=== PATIENT | female | born 1965 | race Caucasian/White ===

== ENCOUNTER → 2017-11-14 09:13 | Outpatient (CLI) | payer OTHER, SELFPAY ==
[2017-11-14 11:27] LABS: BUN 24 mg/dL (7-18); CREATININE 0.78 mg/dL (0.55-1.02); Calcium 8.9 mg/dL (8.5-10.1); Chloride 101 mmol/L (98-107); Glucose 98 mg/dL (70-100); Potassium 4.9 mmol/L (3.5-5.1); Sodium 139 mmol/L (136-145); TSH 0.16 uIU/mL (0.358-3.74)
== END ==
PROVIDERS: PCP Family Medicine; Visit Provider Family Medicine
DX: Z00.00 Encounter for general adult medical examination without abnormal findings (principal); E03.9 Hypothyroidism, unspecified
CPT/HCPCS: 36415; 80048; 84443

== ENCOUNTER 2018-04-28 01:37 | Outpatient (CLI) | payer OTHER, SELFPAY ==
[2018-04-28 16:33] LABS: HCT 39.7 % (36.0-46.0); HGB 12.9 g/dL (12.0-15.5); Mean Corp. HGB Concentration 32.5 g/dL (32.0-36.0); Mean Corpuscular Hemoglobin 29.5 pg (27.0-33.0); Mean Corpuscular Volume 90.6 fL (80-95); Mean Platelet Volume 9.1 fL (8.0-11.0); Platelet Count 243 x1000/uL (130-400); RBC 4.38 m/cumm (4.00-5.20); RBC Distribution Width 14.1 % (11.7-14.6); White Blood Cell Count 8.16 k/cumm (4.4-10.8)
[2018-04-28 17:48] LABS: FREE T4 1.51 ng/dL (0.76-1.46)
[2018-04-29 18:11] LABS: Iron 28 ug/dL (50-175); Total Iron Binding Capacity 333 ug/dL (250-450); Transferrin Sat 8 % (15-50)
== END 2018-04-28 01:57 ==
PROVIDERS: PCP Family Medicine; Visit Provider Family Medicine
DX: E03.9 Hypothyroidism, unspecified (principal); R51 Headache; G47.00 Insomnia, unspecified; L67.9 Hair color and hair shaft abnormality, unspecified; E66.9 Obesity, unspecified
CPT/HCPCS: 36415; 85027; 83540; 83550; 84439; 84443

== ENCOUNTER 2019-03-12 16:26 | Outpatient (REF) | payer OTHER, SELFPAY ==
--- NOTE | 2019-03-12 15:10 | PAPFT_PTH ---
PATIENT: Liss Mosley LOC: [facility] U#:[id number] AGE/SX: 53/F ROOM: RE03/12/[address]: Carolyn Christianson, PhD RN ADVICE : 1965 BED: DIS: 03/12/2019 SPEC #: [id number] RECD: 03/12/19 18:23 STATUS: [place] REQ #: [id number] ADALBERTO: 03/12/19 15:[address]: Carolyn Christianson DEPT: [facility] Cytology RECD BY: Jackie Damon ENTERED: 03/12/19 18:23 SP TYPE: PAPFT OTHR DR: Alexandria Little APRN Tissues: 1 - CX/ENDOCX FOR PAP SMEARS Procedures: PAP THIN PREP/[facility] Screening HPV DNA PROBE Comments: [id number] (CHLAMYDIA/GC)
[2019-03-15 14:32] LABS: Chlamydia Result Negative (Negative); GC Result Negative (Negative)
== END 2019-03-12 16:46 ==
LOC: LBN 16:26
PROVIDERS: Visit Provider Nurse Practitioner
DX: Z12.4 Encounter for screening for malignant neoplasm of cervix (principal); Z11.3 Encounter for screening for infections with a predominantly sexual mode of transmission
CPT/HCPCS: 87491; 87591; 88142; 87624

== ENCOUNTER 2019-04-14 00:33 | Outpatient (CLI) | payer OTHER, SELFPAY ==
--- NOTE | 2019-04-14 15:57 | DI.MAMMO_ITS ---
EXAM: MG MAMMO SCREENING CLINICAL HISTORY: SCREENING, Z12.39. TECHNIQUE: Full field digital CC and MLO mammographic images were obtained with 3D tomosynthesis and utilizing computer aided detection (CAD). COMPARISON: 2010 to 2017 FINDINGS: Breast Density - Category A - Almost entirely fatty Masses/Architectural Distortion: None seen. Microcalcifications: No suspicious pleomorphic-type calcifications are seen. Skin Thickening/Nipple Retraction: None. Axilla: Unremarkable. IMPRESSION: 1. BI-RADS category 1, negative. No significant interval change with no specific features of maligna ncy noted. 2. Unless there is more urgent need, screening mammography is recommended, as per [employer] [employer] guidelines. Breast Density - Category A - Almost entirely fatty A negative radiographic report should not delay biopsy if a dominant or clinically suspicious mass is present. Up to ten percent of cancers are not identified on mammography. A negative report may reinforce clinical impression. Adenosis and dense breasts may obscure an underlying neoplasm. False positive reports average 6 to 10%. Patient will receive a letter notifying them of these results.
== END 2019-04-14 00:53 ==
PROVIDERS: Visit Provider Nurse Practitioner
DX: Z12.31 Encounter for screening mammogram for malignant neoplasm of breast (principal)
CPT/HCPCS: 77063; 77067

== ENCOUNTER 2019-07-10 08:57 | Outpatient (REF) | payer OTHER, SELFPAY ==
[2019-07-13 11:13] LABS: Campylobacter PCR Negative (Negative); Salmonella PCR Negative (Negative); Shiga Toxin PCR Negative (Negative); Shigella/Enteroinvasive Ecoli Negative (Negative)
== END 2019-07-10 09:17 ==
LOC: LBN 08:57
DX: K29.70 Gastritis, unspecified, without bleeding (principal)
CPT/HCPCS: 87505; 87177

== ENCOUNTER 2019-10-22 02:29 | Outpatient (CLI) | payer OTHER, SELFPAY ==
[2019-10-22 14:05] LABS: ALT 20 U/L (14-59); AST 13 U/L (15-37); Albumin 3.7 g/dL (3.4-5.0); Alkaline Phosphatase 68 U/L (46-116); Anion Gap 9.5 mmol/L (3-11); BUN 25 mg/dL (7-18); Bilirubin, Total 0.4 mg/dL (0.2-1.0); CO2 27.5 mmol/L (21.0-32.0); CREATININE 0.99 mg/dL (0.55-1.02); Calcium 8.6 mg/dL (8.5-10.1); Chloride 102 mmol/L (98-107); Estimated GFR 58.02 (mL/min/1.73m2); Glucose 104 mg/dL (74-106); Potassium 3.6 mmol/L (3.5-5.1); Sodium 139 mmol/L (136-145); Total Protein 7.5 g/dL (6.4-8.2)
== END 2019-10-22 02:49 ==
DX: E03.9 Hypothyroidism, unspecified (principal); E66.9 Obesity, unspecified; F32.9 Major depressive disorder, single episode, unspecified; L63.9 Alopecia areata, unspecified; N91.2 Amenorrhea, unspecified; Z00.00 Encounter for general adult medical examination without abnormal findings
CPT/HCPCS: 36415; 80053

== ENCOUNTER 2020-01-11 01:26 | Outpatient (CLI) | payer OTHER, SELFPAY ==
[2020-01-11 16:46] LABS: Hemoglobin A1C 5.6 % (<5.7)
[2020-01-11 17:34] LABS: Calculated LDL 143 mg/dL (<100); Cholesterol 229 mg/dL (<200); HDL Cholesterol 63 mg/dL (40-60); TSH (W/Ref FT4) 3.39 uIU/mL (0.36-3.74); Triglyceride 116 mg/dL (<150)
== END 2020-01-11 01:46 ==
PROVIDERS: Visit Provider Nurse Practitioner
DX: E03.9 Hypothyroidism, unspecified (principal); Z13.6 Encounter for screening for cardiovascular disorders; Z13.1 Encounter for screening for diabetes mellitus
CPT/HCPCS: 36415; 80061; 83036; 84443

== ENCOUNTER 2020-05-12 15:49 | Outpatient (REF) | payer OTHER, SELFPAY ==
--- NOTE | 2020-05-12 15:00 | PAPFT_PTH ---
PATIENT: Liss Mosley LOC: [facility] U#:[id number] AGE/SX: 54/F ROOM: RE05/12/[address]: Carolyn Christianson, PhD [employer] : 1965 BED: DIS: 05/12/2020 SPEC #: [id number] RECD: 05/15/20 13:01 STATUS: [place] REQ #: [id number] ADALBERTO: 05/12/20 15:[address]: Carolyn Christianson [facility] Cytology RECD BY: Jackie Damon Tissues: 1 - CX/ENDOCX FOR PAP SMEARS Procedures: PAP THIN PREP/UVM Screening HPV DNA PROBE Comments: [id number]
== END 2020-05-12 15:50 | disposition home or self-care (01) ==
LOC: LBN 15:49
PROVIDERS: PCP Nurse Practitioner; Visit Provider Nurse Practitioner
DX: Z12.4 Encounter for screening for malignant neoplasm of cervix (principal); Z11.51 Encounter for screening for human papillomavirus (HPV)
CPT/HCPCS: 88142; 87624

== ENCOUNTER 2020-05-15 09:37 | Outpatient (CLI) | payer OTHER, SELFPAY ==
[2020-05-16 11:51] LABS: COVID-19 RT-PCR UVMMC Result Negative (Negative)
== END 2020-05-15 09:38 | disposition home or self-care (01) ==
LOC: LBO 09:38
PROVIDERS: PCP Nurse Practitioner; Visit Provider Nurse Practitioner
DX: Z20.822 Contact with and (suspected) exposure to COVID-19 (principal)
CPT/HCPCS: U0003

== ENCOUNTER 2020-05-26 03:37 | Outpatient (CLI) | payer OTHER, SELFPAY ==
--- NOTE | 2020-05-26 06:45 | DI.MAMMO_ITS ---
EXAM: MAMMO SCREENING CLINICAL HISTORY: screening,Z12.39 TECHNIQUE: Mammograms were interpreted according to the usual protocol including computer analysis w [employer] CAD system, tomosynthesis and C-view imaging. COMPARISON: 2014 through 2019 FINDINGS: The breasts are composed of mainly fatty density , Breast Density category A. No suspicious masses or suspicious microcalcifications are seen. No skin thickening or abnormal axillary lymph nodes are seen. There has been no significant change from prior exams. IMPRESSION: BI-RADS Category 1, Negative mammogram Yearly screening mammography is recommended. Breast Density - Category A, fatty density. A negative radiographic report should not delay biopsy if a dominant or clinically suspicious mass is present. Up to ten percent of cancers are not identified on mammography. A negative report may reinforce clinical impression. Adenosis and dense breasts may obscure an underlying neoplasm. False positive reports average 6 to 10%. Patient will receive a letter notifying them of these results.
== END 2020-05-26 03:57 ==
PROVIDERS: PCP Nurse Practitioner; Visit Provider Nurse Practitioner
DX: Z12.31 Encounter for screening mammogram for malignant neoplasm of breast (principal)
CPT/HCPCS: 77063; 77067

== ENCOUNTER 2020-06-21 01:25 | Outpatient (CLI) | payer OTHER, SELFPAY ==
--- NOTE | 2020-06-21 13:49 | DI.US_ITS ---
APPROVED REPORT EXAM: Comprehensive 2D, Doppler, and color-flow Echocardiogram Patient Location: [facility] [employer] Teacher: Cely Mathur RDCS (AE) Indications: Heart murmur Other Information Study Quality: Adequate Conclusion Left Ventricle : The left ventricle is normal size. The left ventricular systolic function is normal. The left ventricular ejection fraction is within the normal range. There is normal left ventricular wall thickness. There is normal LV segmental wall motion. The left ventricular diastolic function is normal. LVEF is 60-65%. Right Ventricle : The right ventricle is normal size. The right ventricular systolic function is norm al. The RVSP is 35.2mmHg. Atria : The left atrium size is normal. The right atrium size is normal. Aortic Valve : The aortic valve is normal in structure. Aortic valve is trileaflet. Mild aortic regur gitation. There is no aortic valvular stenosis. Mitral Valve : The mitral valve is normal in structure. Mild mitral regurgitation. No evidence of lula ral valve stenosis. Great Vessels : The aortic root is normal in size. The ascending aorta is mildly dilated. Aortic arch is normal in caliber. IVC is normal in size and collapses >50% with inspiration. Wall motion Left Ventricle The left ventricle is normal size. The left ventricular systolic function is normal. The left ventric ular ejection fraction is within the normal range. There is normal left ventricular wall thickness. T here is normal LV segmental wall motion. The left ventricular diastolic function is normal. There is no ventricular septal defect visualized. LVEF is 60-65%. Right Ventricle The right ventricle is normal size. The right ventricular systolic function is normal. The RVSP is 35 .2mmHg. Atria The left atrium size is normal. The right atrium size is normal. The interatrial septum is intact wit h no evidence for an atrial septal defect. Aortic Valve The aortic valve is normal in structure. Aortic valve is trileaflet. There is no aortic valvular sten osis. Mild aortic regurgitation. Mitral Valve The mitral valve is normal in structure. No evidence of mitral valve stenosis. Mild mitral regurgitat ion. Tricuspid Valve The tricuspid valve is normal in structure. There is no tricuspid valve stenosis. Mild tricuspid regu rgitation. Pulmonic Valve The pulmonary valve is normal in structure. There is no pulmonic valvular stenosis. Trace pulmonic re gurgitation. Great Vessels The aortic root is normal in size. The ascending aorta is mildly dilated. Aortic arch is normal in ca liber. IVC is normal in size and collapses >50% with inspiration. Pericardium There is no pericardial effusion. 2D Dimensions IVSD d PLAX 0.98 cm F: 0.6-1.0 LV Vol A2C d MOD 112.0 mL LVPW d PLAX 0.91 cm F: 0.6 - 1.0 LV Vol A4C d MOD 114.1 mL LVID d PLAX 4.83 cm F: 3.8 - 5.2 LA vol/ BSA A2C s A-L 28.6 mL/m2 LVDs 3.25 cm F: 2.2 - 3.5 LA vol/ BSA A4C s A-L 33.2 mL/m2 Ao Root d 3.07 cm F: 2.7 - 3.3 LA Vol/ BSA Biplane s A-L 32.2 mL/m2 RA Area A4C 12.09 cm2 LA Area A4C s MOD 23.74 cm2 RA Vol/ BSA A4C s A-L 12.1 mL/m2 LA Area A2C s MOD 21.13 cm2 Ao Asc Diam d 3.59 cm F: 2.3 - 3.1 LV EF A4C MOD 59.3 % LV EF Teichholz 60.4 % LV EF A2C MOD 64.5 % LVEF (Dewitt's) 62.64 % F: 54 - 74 LV EF Biplane MOD 62.6 % LV Volume 81.66 mL F: 46 - 106 SV 71.64 mL LV Volume Index 35.04 mL/m2 F: 29 - 61 SV Index 30.66 mL/m2 LV Vol Biplane MOD 114.4 mL FS 32.25 % M-Mode TAPSE 2.68 cm (M/F) >1.7 LV Diastology MV E' medial 0.137 (>0.07 m/s) E/A Ratio 1.3 LV E/e MED 8.00 (<14) MV E Vmax 1.10 (0.4-1.3 m/s) MV E' lateral 0.111 (>0.1 m/s) MV A Vmax 0.85 (0.4-1.3 m/s) LV E/e LAT 9.80 (<14) MV E/A Ratio 1.22 MV E/E' medial 8.00 MV E/E' lateral 9.85 Aortic Valve LVOT Area 2.81 cm2 AoV Area Vmax 2.55 cm2 LVOT Vmax 1.44 m/s AoV Area/ BSA (Vmax) 1.09 cm2/m2 LVOT Mean Ronald. 0.94 m/s AJITH Mean Ronald. 2.21 cm2 LVOT Peak Grad 8.3 mmHg AJITH Mean Ronald. Index 0.95 cm2/m2 LVOT Mean Grad 4.2 mmHg AR DT 2438 msec LVOT VTI 0.351 m AR PHT 707 msec LVOT Diam s 1.85 cm AoV Vmax 1.58 m/s Velocity Ratio 0.91 AoV Mean Ronald. 1.20 m/s AoV Peak Grad 10.0 mmHg LVOT SV 98.70 mL AoV Mean Grad 6.1 mmHg AoV VTI 0.401 m AoV Area VTI 2.46 cm2 AoV Area/ BSA (VTI) 1.05 cm/m2 Mitral Valve MV DT 242 (160-240 msec) MR Vmax 5.40 m/s MV PHT 70 msec MR VTI 2.034 m MV Area PHT 3.13 cm2 MR Peak Grad 116.7 mmHg MV VTI 0.328 m MR Mean Grad 85.6 mmHg MV VTI Annulus 0.328 m MR PISA Radius 0.58 cm MV Area VTI 3.02 (4.0-6.0 cm2) MR EROA 0.14 cm2 MR Aliasing Velocity 0.35 m/s MR PISA 2.09 cm2 Pulmonary Valve PV Vmax 1.11 (0.5-1.5 m/s) RVOT Peak Gr. 3.38 mmHg PV Peak Grad 5.0 mmHg RVOT Mean Gr. 1.65 mmHg PV Mean Grad 2.8 mmHg RVOT VTI 0.239 m PV VTI 0.276 m RVOT Vmax 0.92 m/s Tricuspid Valve TR Peak Grad 32.1 mmHg TR Vmax 2.84 m/s RA Pressure 3.00 mmHg RVSP (TR) 35.2 mmHg
== END 2020-06-21 01:45 ==
PROVIDERS: PCP Nurse Practitioner; Visit Provider Nurse Practitioner
DX: R01.1 Cardiac murmur, unspecified (principal); I08.0 Rheumatic disorders of both mitral and aortic valves; I77.810 Thoracic aortic ectasia
CPT/HCPCS: 93306

== ENCOUNTER 2020-07-14 08:04 | Outpatient (CLI) | payer OTHER, SELFPAY ==
[2020-07-15 15:05] LABS: COVID-19 RT-PCR UVMMC Result Negative (Negative)
== END 2020-07-14 08:05 | disposition home or self-care (01) ==
PROVIDERS: PCP Nurse Practitioner; Visit Provider Nurse Practitioner
DX: Z20.822 Contact with and (suspected) exposure to COVID-19 (principal)
CPT/HCPCS: U0003

== ENCOUNTER 2020-09-08 04:03 | Outpatient (CLI) | payer OTHER, SELFPAY ==
[2020-09-08 11:19] LABS: ALT 23 U/L (14-59); AST 12 U/L (15-37); Albumin 3.6 g/dL (3.4-5.0); Alkaline Phosphatase 78 U/L (46-116); Anion Gap 7.1 mmol/L (3-11); BUN 16 mg/dL (7-18); Bilirubin, Total 0.3 mg/dL (0.2-1.0); CO2 29.9 mmol/L (21.0-32.0); CREATININE 0.8 mg/dL (0.55-1.02); Calcium 8.9 mg/dL (8.5-10.1); Chloride 105 mmol/L (98-107); FREE T4 0.86 ng/dL (0.76-1.46); Glucose 91 mg/dL (74-106); Potassium 4.4 mmol/L (3.5-5.1); Sodium 142 mmol/L (136-145); TSH 2.62 uIU/mL (0.36-3.74); Total Protein 7.2 g/dL (6.4-8.2)
[2020-09-08 18:31] LABS: Thyroperoxidase Antibody >1300 U/mL (<=60)
[2020-09-08 18:32] LABS: Thyroglobulin Antibody 35 U/mL (<=60)
[2020-09-13 14:44] LABS: Testosterone, Total 14 ng/dL (8-60)
[2020-09-14 14:51] LABS: Dehydroepiandrosterone (DHEA) 3.7 ng/mL (<6.0)
== END 2020-09-08 04:04 | disposition home or self-care (01) ==
LOC: LBO 04:03
PROVIDERS: PCP Nurse Practitioner; Visit Provider Internal Medicine Endocrinology, Diabetes & Metabolism
DX: L65.9 Nonscarring hair loss, unspecified (principal); Z68.42 Body mass index [BMI] 45.0-49.9, adult; E03.9 Hypothyroidism, unspecified
CPT/HCPCS: 36415; 80053; 84403; 82626; 84439; 84443; 86376; 86800

== ENCOUNTER 2020-12-20 00:34 | Outpatient (CLI) | payer OTHER, SELFPAY | END 2020-12-20 00:35 | disposition home or self-care (01) | PROVIDERS: PCP Nurse Practitioner; Visit Provider Internal Medicine Endocrinology, Diabetes & Metabolism | DX: Z68.42 Body mass index [BMI] 45.0-49.9, adult (principal); E66.01 Morbid (severe) obesity due to excess calories | CPT/HCPCS: 36415; 82533 ==

== ENCOUNTER 2021-04-20 01:48 | Outpatient (CLI) | payer OTHER, SELFPAY ==
[2021-04-20 07:34] LABS: Abs Immature Grans 0.03 10^3/uL (0.0-0.06); Absolute Basophil Count 0.03 10^3/uL (0.0-0.2); Absolute Eosinophil Count 0.21 10^3/uL (0.0-0.7); Absolute Lymphocyte Count 1.93 10^3/uL (1.2-3.4); Absolute Neutrophil Count 3.94 10^3/uL (1.2-6.7); Basophils % 0.5; Eosinophils % 3.2; HCT 44.7 % (36.0-46.0); HGB 13.8 g/dL (11.2-15.7); Immature Grans % 0.5; Lymphocytes % 29.1; MCHC 30.9 % (32.0-36.0); MCV 90.9 fL (80-95); MPV 9.2 fL (8.0-11.0); Monocytes % 7.5; Neutrophils % 59.2; Nucleated RBC 0 %; Platelet Count 242 10^3/uL (130-400); RBC 4.92 10^6/uL (3.93-5.22); RDW 14.2 % (11.7-14.6); RDW-SD 47.9 fL; WBC 6.64 10^3/uL (4.4-10.8)
[2021-04-20 07:44] LABS: Hemoglobin A1C 5.6 % (<5.7)
[2021-04-20 09:18] LABS: ALT 20 U/L (14-59); AST 11 U/L (15-37); Albumin 3.8 g/dL (3.4-5.0); Alkaline Phosphatase 61 U/L (46-116); Anion Gap 9.7 mmol/L (3-11); BUN 26 mg/dL (7-18); Bilirubin, Total 0.3 mg/dL (0.2-1.0); CO2 28.3 mmol/L (21.0-32.0); Calcium 8.6 mg/dL (8.5-10.1); Calculated LDL 164 mg/dL (<100); Chloride 102 mmol/L (98-107); Cholesterol 241 mg/dL (<200); Estimated GFR 57.15 (mL/min/1.73m2); Ferritin 109 ng/mL (8-252); Glucose 97 mg/dL (74-106); HDL Cholesterol 57 mg/dL (40-60); Potassium 4.2 mmol/L (3.5-5.1); Sodium 140 mmol/L (136-145); Total Protein 7.9 g/dL (6.4-8.2); Triglyceride 101 mg/dL (<150); Vitamin B12 584 pg/mL (193-986)
[2021-04-23 05:29] LABS: Vitamin D 25 Total 35.3 ng/mL (30-100)
[2021-04-26 11:07] LABS: Insulin 26.7 uIU/mL (<29.0)
== END 2021-04-20 01:49 | disposition home or self-care (01) ==
LOC: LBO 01:48
PROVIDERS: PCP Nurse Practitioner; Visit Provider Family Medicine
DX: E66.01 Morbid (severe) obesity due to excess calories (principal); Z68.43 Body mass index [BMI] 50.0-59.9, adult
CPT/HCPCS: 36415; 80053; 80061; 82306; 82607; 82728; 83036; 83525; 85025

== ENCOUNTER 2021-05-31 02:45 | Outpatient (CLI) | payer OTHER, SELFPAY ==
--- NOTE | 2021-05-31 08:30 | DI.MAMMO_ITS ---
Exam(s) MAMMO SCREENING EXAM: MAMMO SCREENING CLINICAL HISTORY: screening,z12.39 TECHNIQUE: Mammograms were interpreted according to the usual protocol including computer analysis w [employer] CAD system, tomosynthesis and C-view imaging. COMPARISON: 2014 through 2020 FINDINGS: The breasts are composed of mainly fatty density , Breast Density category A. No suspicious masses or suspicious microcalcifications are seen. No skin thickening or abnormal axillary lymph nodes are seen. There has been no significant change from prior exams. IMPRESSION: BI-RADS Category 1, Negative mammogram Yearly screening mammography is recommended. Breast Density - Category A, fatty density. A negative radiographic report should not delay biopsy if a dominant or clinically suspicious mass is present. Up to ten percent of cancers are not identified on mammography. A negative report may reinforce clinical impression. Adenosis and dense breasts may obscure an underlying neoplasm. False positive reports average 6 to 10%. Patient will receive a letter notifying them of these results.
== END 2021-05-31 03:05 ==
PROVIDERS: PCP Nurse Practitioner; Visit Provider Nurse Practitioner
DX: Z12.31 Encounter for screening mammogram for malignant neoplasm of breast (principal)
CPT/HCPCS: 77063; 77067

== ENCOUNTER 2021-06-12 17:32 | Outpatient (REF) | payer OTHER, SELFPAY ==
[2021-06-14 11:26] LABS: COVID-19 RT-PCR UVMMC Result Negative (Negative)
== END 2021-06-12 17:33 | disposition home or self-care (01) ==
LOC: LBN 17:32
PROVIDERS: PCP Nurse Practitioner; Visit Provider Family Medicine
DX: Z20.822 Contact with and (suspected) exposure to COVID-19 (principal); J34.89 Other specified disorders of nose and nasal sinuses
CPT/HCPCS: U0003

== ENCOUNTER 2021-06-27 01:46 | Outpatient (CLI) | payer OTHER, SELFPAY ==
--- NOTE | 2021-06-27 07:45 | DI.RAD_ITS ---
Exam(s) XR KNEE RT 3V AP,LAT,RENU EXAM: XR KNEE RT 3V AP,LAT,RENU CLINICAL HISTORY: pain M17.0 BILAT OSTEOARTHRITIS TECHNIQUE: COMPARISON: CR LEFT KNEE 3 VIEW COMPLETE from 05/26/2014 FINDINGS: Four views were obtained. There is severe loss of the cartilaginous joint space of the medial tibiof emoral joint with mild subchondral sclerosis of adjacent portions of femur and tibia and moderate dashawn us angulation. There are prominent medial marginal osteophytes. Marginal osteophytes are also seen anteriorly and posteriorly on the medial tibiofemoral joint and at the patellofemoral joint. IMPRESSION: Severe DJD predominantly involving medial tibiofemoral joint RADIATION DOSE DELIVERED: Total DLP
--- NOTE | 2021-06-27 07:45 | DI.RAD_ITS ---
Exam(s) XR KNEE LT 3V AP,LAT,RENU EXAM: XR KNEE LT 3V AP,LAT,RENU CLINICAL HISTORY: pain M17.0 BILAT OSTEOARTHRITIS TECHNIQUE: COMPARISON: CR XR KNEE RT 3V AP,LAT,RENU from 06/27/2021 FINDINGS: Three views were obtained. There is severe narrowing of the cartilaginous joint space of the medial tibiofemoral joint with mild adjacent subchondral sclerosis of femur and tibia. Moderate marginal os teophytes are seen involving all 3 joints of the knee. There is moderate varus angulation. IMPRESSION: DJD predominantly involving medial tibiofemoral joint. RADIATION DOSE DELIVERED: Total DLP
== END 2021-06-27 02:06 ==
LOC: DI 01:46
PROVIDERS: PCP Nurse Practitioner; Visit Provider Nurse Practitioner
DX: M17.0 Bilateral primary osteoarthritis of knee (principal)
CPT/HCPCS: 73562

== ENCOUNTER 2021-09-10 13:30 | Outpatient (CLI) | payer OTHER, SELFPAY ==
--- NOTE | 2021-09-10 13:45 | RT.EKG_ITS ---
APPROVED REPORT Exam: Resting ECG Reason for Exam: Pre-op examination Patient Location: O HR:55 bpm ECG Measurements Heart Rate 55 AXIS WI 172 P 17 QRSd 107 QRS -19 QT 420 T 22 QTc 404 Conclusion Sinus bradycardia...rate< 60
== END 2021-09-10 13:31 | disposition home or self-care (01) ==
PROVIDERS: PCP Nurse Practitioner; Visit Provider Family Medicine
DX: E03.9 Hypothyroidism, unspecified (principal); I10 Essential (primary) hypertension; Z01.818 Encounter for other preprocedural examination
CPT/HCPCS: 93010

== ENCOUNTER 2021-12-24 02:47 | Outpatient (CLI) | payer OTHER, SELFPAY ==
[2021-12-24 17:09] LABS: Hemoglobin A1C 5.4 % (<5.7)
[2021-12-24 17:36] LABS: BUN 32 mg/dL (7-18); CREATININE 0.8 mg/dL (0.55-1.02); Calcium 9.6 mg/dL (8.5-10.1); Chloride 104 mmol/L (98-107); Estimated GFR 85.35 (mL/min/1.73m2); Glucose 82 mg/dL (74-106); Potassium 4.4 mmol/L (3.5-5.1); Sodium 139 mmol/L (136-145); TSH (W/Ref FT4) 0.27 uIU/mL (0.36-3.74)
[2021-12-24 17:52] LABS: FREE T4 1.12 ng/dL (0.76-1.46)
== END 2021-12-24 02:48 | disposition home or self-care (01) ==
LOC: LBO 02:47
PROVIDERS: Family Medicine; PCP Nurse Practitioner; Visit Provider Family Medicine
DX: E03.9 Hypothyroidism, unspecified (principal); I10 Essential (primary) hypertension; Z13.1 Encounter for screening for diabetes mellitus
CPT/HCPCS: 36415; 80048; 83036; 84439; 84443

== ENCOUNTER → 2022-01-23 12:39 | Outpatient (CLI) | payer OTHER, SELFPAY ==
--- NOTE | 2022-01-23 11:15 | DI.RAD_ITS ---
Exam(s) XR LUMBAR SPINE COMPLETE EXAM: XR LUMBAR SPINE COMPLETE CLINICAL HISTORY: BACK PAIN. DORSALGIA-M54.9 TECHNIQUE: COMPARISON: No exams were available for comparison FINDINGS: Five views were obtained. There is loss of height of the intervertebral disc spaces at L4-5 and L5-S 1. There are mild hypertrophic degenerative changes involving the facet joints and endplates through out the lumbar region. There is no evidence of spondylolysis or spondylolisthesis. No compression f racture seen. IMPRESSION: DJD, no evidence of acute process. The RADIATION DOSE DELIVERED: Total DLP
== END ==
PROVIDERS: PCP Nurse Practitioner; Visit Provider Physician Assistant
DX: M47.816 Spondylosis without myelopathy or radiculopathy, lumbar region (principal)
CPT/HCPCS: 72110

== ENCOUNTER 2022-05-01 04:12 | Outpatient (CLI) | payer OTHER, SELFPAY ==
[2022-05-01 17:07] LABS: TSH (W/Ref FT4) 1.67 uIU/mL (0.36-3.74)
== END 2022-05-01 04:13 | disposition home or self-care (01) ==
LOC: LBO 04:13
PROVIDERS: PCP Nurse Practitioner Family; Visit Provider Nurse Practitioner Family
DX: E03.9 Hypothyroidism, unspecified (principal)
CPT/HCPCS: 36415; 84443

== ENCOUNTER 2022-07-19 02:14 | Outpatient (CLI) | payer OTHER, SELFPAY ==
[2022-07-19 12:24] LABS: HCT 39.5 % (36.0-46.0); HGB 12.3 g/dL (11.2-15.7); MCH 29.1 pg (27.0-33.0); MCHC 31.1 % (32.0-36.0); MCV 94 fL (80-95); MPV 9.6 fL (8.0-11.0); Platelet Count 286 10^3/uL (130-400); RBC 4.22 10^6/uL (3.93-5.22); RDW 14.3 % (11.7-14.6); RDW-SD 49.2 fL; WBC 7.97 10^3/uL (4.4-10.8)
[2022-07-19 13:30] LABS: ALT 25 U/L (14-59); AST 13 U/L (15-37); Albumin 3.8 g/dL (3.4-5.0); Alkaline Phosphatase 50 U/L (46-116); Anion Gap 10.4 mmol/L (3-11); BUN 27 mg/dL (7-18); Bilirubin, Total 0.2 mg/dL (0.2-1.0); CO2 26.6 mmol/L (21.0-32.0); CREATININE 1.1 mg/dL (0.55-1.02); Calcium 9.1 mg/dL (8.5-10.1); Calculated LDL 113 mg/dL (<100); Chloride 102 mmol/L (98-107); Cholesterol 193 mg/dL (<200); Estimated GFR 58.24 (mL/min/1.73m2); Glucose 91 mg/dL (74-106); HDL Cholesterol 54 mg/dL (40-60); Potassium 4.6 mmol/L (3.5-5.1); Sodium 139 mmol/L (136-145); Triglyceride 132 mg/dL (<150)
== END 2022-07-19 02:15 | disposition home or self-care (01) ==
PROVIDERS: PCP Nurse Practitioner Family; Visit Provider Nurse Practitioner Family
DX: E03.9 Hypothyroidism, unspecified (principal); E66.9 Obesity, unspecified; F32.9 Major depressive disorder, single episode, unspecified; G47.30 Sleep apnea, unspecified; I10 Essential (primary) hypertension; Z00.00 Encounter for general adult medical examination without abnormal findings
CPT/HCPCS: 36415; 80053; 80061; 85027

== ENCOUNTER 2022-08-06 01:20 | Outpatient (CLI) | payer OTHER, SELFPAY ==
--- NOTE | 2022-08-06 15:31 | DI.MAMMO_ITS ---
Exam(s) MAMMO SCREENING EXAM: MAMMO SCREENING CLINICAL HISTORY: screening,Z12.39. TECHNIQUE: Bilateral full field digital CC and MLO mammographic images were obtained with 3D tomosyn thesis and utilizing computer aided detection (CAD). COMPARISON: Prior mammograms were reviewed. FINDINGS: There has been no significant change in the appearance and distribution of the fibroglandular tissue which is again noted be predominately fatty.. There are no new spiculated masses nor malignant appearing microcalcification groups. Benign anteriorly in the left breast are again noted. A group of microcalcifications located mediall y in the right breast is unchanged from prior studies. There are no new malignant-appearing microcalcification groups appear There is no significant architectural distortion nor skin thickening-retraction. IMPRESSION: No radiographic evidence of malignancy. BI-RADS Category 1 - Negative Breast Density - Category A - Almost entirely fatty Breast density Category C or D implies that the patient has dense breast tissue. Dense breast tissue can make it harder to find cancer on a mammogram. Dense breast tissue is also associated with an incr eased risk of breast cancer. This information about the result of the mammogram report was provided to the patient to raise their awareness. Use this report when you speak with the patient about their risks for breast cancer, which includes their family history. At that time, you may recommend additional screening tests (Ultrasoun d or MRI) as these tests may add significant information. A negative radiographic report should not delay biopsy if a dominant or clinically suspicious mass is present. Up to ten percent of cancers are not identified on mammography. A negative report may reinforce clinical impression. Adenosis and dense breasts may obscure an underlying neoplasm. False positive reports average 6 to 10%. Patient will receive a letter notifying them of these results.
== END 2022-08-06 01:40 ==
LOC: DI 01:21
PROVIDERS: PCP Nurse Practitioner Family; Visit Provider Nurse Practitioner Family
DX: Z12.31 Encounter for screening mammogram for malignant neoplasm of breast (principal)
CPT/HCPCS: 77063; 77067

== ENCOUNTER 2022-12-02 19:46 | Emergency (ER) | payer OTHER, SELFPAY ==
[2022-12-02] VITALS (28 sets, daily range): BP systolic 104–131; BP diastolic 45–71; PULSE 55–66; RESP 12–23; TEMP 36.3; O2SAT 95–99
--- NOTE | 2022-12-02 19:45 | RT.EKG_ITS ---
APPROVED REPORT Exam: Resting ECG Reason for Exam: syncopal episode Patient Location: E HR:56 bpm ECG Measurements Heart Rate 56 AXIS KS 196 P 58 QRSd 108 QRS -23 QT 422 T 23 QTc 408 Conclusion Sinus bradycardia...rate< 60
--- NOTE | 2022-12-02 20:15 | DI.CT_ITS ---
Exam(s) CT HEAD WO EXAM: CT HEAD WO CLINICAL HISTORY: Syncope. TECHNIQUE: Imaging Protocol: Axial computed tomography images with coronal and sagittal reformatted images were created and reviewed COMPARISON: No exams were available for comparison FINDINGS: There are no skull fractures. There is no fluid in the visualized paranasal sinuses. There is no evidence of intracranial hemorrhage, mass effect, or shift of midline structures. There are no extra-axial fluid collections. The ventricles are not enlarged or shifted and there is no blo od within the ventricular system nor within the basal cisterns. IMPRESSION: No acute intracranial findings on this noninfused CT scan of the brain. RADIATION DOSE DELIVERED: 732.87mGy.cm Total DLP DATA REPOSITORY: All CT scans at this facility are submitted to the National Radiology Data Registry (NRDR) Dose Index Registry (DIR) with the [employer] ([employer]). RADIATION OPTIMIZATION: All CT scans at this facility use at least one of these dose optimization te chniques: automated exposure control; mA and/or kV adjustment per patient size (includes targeted exa ms where dose is matched to clinical indication); or iterative reconstruction.
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
[2022-12-02 20:34] LABS: Abs Immature Grans 0.04 10^3/uL (0.0-0.06); Absolute Basophil Count 0.04 10^3/uL (0.0-0.2); Absolute Eosinophil Count 0.13 10^3/uL (0.0-0.7); Absolute Lymphocyte Count 1.75 10^3/uL (1.2-3.4); Absolute Monocyte Count 0.52 10^3/uL (0.1-0.8); Absolute Neutrophil Count 6.47 10^3/uL (1.2-6.7); Basophils % 0.4; Eosinophils % 1.5; HCT 36.1 % (36.0-46.0); HGB 11.7 g/dL (11.2-15.7); Immature Grans % 0.4; Lymphocytes % 19.6; MCH 29.8 pg (27.0-33.0); MCHC 32.4 % (32.0-36.0); MCV 92 fL (80-95); MPV 10.1 fL (8.0-11.0); Monocytes % 5.8; Neutrophils % 72.3; Platelet Count 253 10^3/uL (130-400); RBC 3.93 10^6/uL (3.93-5.22); RDW-SD 47.4 fL; WBC 8.95 10^3/uL (4.4-10.8)
[2022-12-02] MEDS: Normal Saline 1,000 ML 1000 ML IV ×2 (20:56→22:30)
[2022-12-02 20:59] LABS: ALT 14 U/L (14-59); AST 13 U/L (15-37); Albumin 3.3 g/dL (3.4-5.0); Alkaline Phosphatase 57 U/L (46-116); Anion Gap 8.4 mmol/L (3-11); BUN 36 mg/dL (7-18); Bilirubin, Total 0.2 mg/dL (0.2-1.0); CO2 25.6 mmol/L (21.0-32.0); CREATININE 1.3 mg/dL (0.55-1.02); Calcium 9.2 mg/dL (8.5-10.1); Chloride 102 mmol/L (98-107); Estimated GFR 47.37 (mL/min/1.73m2); Glucose 133 mg/dL (74-106); Magnesium 2.2 mg/dL (1.8-2.4); Potassium 4.4 mmol/L (3.5-5.1); Sodium 136 mmol/L (136-145); TSH 0.14 uIU/mL (0.36-3.74); Total Protein 7.1 g/dL (6.4-8.2); Troponin I < 50 ng/L (<or=60)
[2022-12-02 21:02] LABS: ETHANOL BLOOD < 3.0 mg/dL (<10)
[2022-12-02 21:16] LABS: D-Dimer 355 ng/mlFEU (<500)
[2022-12-02 22:16] LABS: FREE T4 1.09 ng/dL (0.76-1.46)
--- NOTE | 2022-12-02 22:17 | DI.VRAD_ITS ---
PROCEDURE INFORMATION: Exam: CT Head Without Contrast Exam date and time: 12/02/2022 9:49 PM Age: 57 years old Clinical indication: Other: Syncope TECHNIQUE: Imaging protocol: Computed tomography of the head without contrast. Radiation optimization: All CT scans at this facility use at least one of these dose optimization techniques: automated exposure control; mA and/or kV adjustment per patient size (includes targeted exams where dose is matched to clinical indication); or iterative reconstruction. COMPARISON: US THYROID 09/21/2020 9:08 AM FINDINGS: Brain: There is no significant cerebral atrophy present. There is no significant white matter disease present. There is no evidence of intracranial hemorrhage. There is no evidence of acute intracranial injury or other pathologic process. There is no evidence of an acute ischemic event. No evidence of an acute intracranial abnormality. Cerebral ventricles: The ventricular system is normal in caliber and are seen in the midline. Paranasal sinuses: There is no evidence of fluid levels, mucoperiosteal thickening, or opacification to suggest acute or chronic sinusitis. Mastoid air cells: The mastoid aircells are normal. Orbital cavities: The orbits are normal without evidence of fracture. There is no evidence of retro-bulbar hemorrhage. There is no evidence of globe or lens injury. Bones/joints: The bony cranium shows no evidence of injury or other acute pathologic processes. Soft tissues: The extracranial soft tissues are normal. IMPRESSION: No evidence of an acute intracranial abnormality. Dictated and Authenticated by: Harrison Fregoso MD. Ordering:MISTI Sweeney MD
[2022-12-02 22:36] LABS: Bilirubin Negative (Negative); Blood Negative (Negative); Clarity Clear (Clear); Glucose Negative (Negative); Ketones Negative (Negative); Leukocyte Esterase Negative (Negative); Nitrite Negative (Negative); Specific Gravity 1.015 (1.005-1.025); Urobilinogen 0.2 mg/dL (Up to 0.2); pH 6.5 (5-8)
--- NOTE | 2022-12-02 23:10 | NUR.NOTE ---
Referral faxed to [facility]. Follow up this week for recheck kidney function. Nursing Note:
== END 2022-12-02 23:32 | disposition home or self-care (01) ==
PROVIDERS: Emergency Provider Nurse Practitioner Family; PCP Nurse Practitioner Family
DX: R55 Syncope and collapse (principal); R00.1 Bradycardia, unspecified; E86.0 Dehydration; N28.9 Disorder of kidney and ureter, unspecified; I95.1 Orthostatic hypotension; I10 Essential (primary) hypertension; E03.9 Hypothyroidism, unspecified; Z79.899 Other long term (current) drug therapy
CPT/HCPCS: 36415; 80053; 93005; 96360; 96361; 99284; 70450; 80320; 81003; 83735; 84439; 84443; 84484; 85025; 85379; 93010

== ENCOUNTER 2022-12-09 02:06 | Outpatient (CLI) | payer OTHER, SELFPAY ==
[2022-12-09 16:37] LABS: Anion Gap 10.3 mmol/L (3-11); BUN 26 mg/dL (7-18); CO2 24.7 mmol/L (21.0-32.0); CREATININE 1.1 mg/dL (0.55-1.02); Calcium 9.2 mg/dL (8.5-10.1); Chloride 98 mmol/L (98-107); Estimated GFR 57.88 (mL/min/1.73m2); Glucose 90 mg/dL (74-106); Potassium 4.2 mmol/L (3.5-5.1); Sodium 133 mmol/L (136-145)
== END 2022-12-09 02:07 | disposition home or self-care (01) ==
LOC: LBO 02:06
PROVIDERS: PCP Nurse Practitioner Family; Visit Provider Nurse Practitioner Family
DX: I10 Essential (primary) hypertension (principal); N28.9 Disorder of kidney and ureter, unspecified; E86.0 Dehydration; E66.8 Other obesity
CPT/HCPCS: 36415; 80048

== ENCOUNTER → 2023-06-06 12:42 | Outpatient (CLI) | payer OTHER, SELFPAY ==
--- NOTE | 2023-06-06 08:45 | DI.MAMMO_ITS ---
Exam(s) US BREAST LT LIMITED MAMMO DIAGNOSTIC BI EXAM: MAMMO DIAGNOSTIC BI and U/S breast LT limited CLINICAL HISTORY: tender breast lump, left, axiallary area,n63.20. TECHNIQUE: Craniocaudal and mediolateral oblique Full Field Digital Mammography views with Computer Aided Diagnosis followed by Tomosynthesis and left breast ultrasound. COMPARISON: Comparison is made with prior examinations. FINDINGS: Mammography/Tomosynthesis: Masses/Architectural Distortion: None seen. Microcalcifictions: No suspicious pleomorphic-type are seen. Skin Thickening/Nipple Retraction: None. Limited left breast US: Echotexture: Normal appearance of the glandular tissue. Shadowing: No suspicious foci. Cyst: None. Solid lesions: Benign-appearing lymph nodes are seen in the axilla. No cystic or solid lesions are s een in the area identified by the patient. Ductal dilation: None. IMPRESSION: 1. No evidence of malignancy is noted. 2. Unless there is more urgent need, follow-up screening mammography is recommended, as per [place] [employer] guidelines. 3. The findings were discussed with the patient on the date of the examination. BI-RADS Category 1 - Negative Breast Density - Category B - Scattered areas of fibroglandular density Breast density Category C or D implies that the patient has dense breast tissue. Dense breast tissue can make it harder to find cancer on a mammogram. Dense breast tissue is also associated with an incr eased risk of breast cancer. This information about the result of the mammogram report was provided to the patient to raise their awareness. Use this report when you speak with the patient about their risks for breast cancer, which includes their family history. At that time, you may recommend additional screening tests (Ultrasoun d or MRI) as these tests may add significant information. A negative radiographic report should not delay biopsy if a dominant or clinically suspicious mass is present. Up to ten percent of cancers are not identified on mammography. A negative report may reinforce clinical impression. Adenosis and dense breasts may obscure an underlying neoplasm. False positive reports average 6 to 10%. Patient will receive a letter notifying them of these results.
== END ==
PROVIDERS: PCP Nurse Practitioner Family; Visit Provider Nurse Practitioner Family
DX: R92.8 Other abnormal and inconclusive findings on diagnostic imaging of breast (principal); Z12.31 Encounter for screening mammogram for malignant neoplasm of breast
CPT/HCPCS: 76642; 77062; 77066; G0279

== ENCOUNTER 2023-08-14 05:16 | Outpatient (CLI) | payer OTHER, SELFPAY ==
[2023-08-14 18:15] LABS: Anion Gap 9.3 mmol/L (3-11); BUN 43 mg/dL (7-18); CO2 28.7 mmol/L (21.0-32.0); CREATININE 1.3 mg/dL (0.55-1.02); Calcium 9.3 mg/dL (8.5-10.1); Chloride 102 mmol/L (98-107); Estimated GFR 47.08 (mL/min/1.73m2); Glucose 87 mg/dL (74-106); Potassium 4.3 mmol/L (3.5-5.1); Sodium 140 mmol/L (136-145); TSH (W/Ref FT4) 1.98 uIU/mL (0.36-3.74)
== END 2023-08-14 05:17 | disposition home or self-care (01) ==
PROVIDERS: PCP Nurse Practitioner Family; Visit Provider Nurse Practitioner Family
DX: Z00.00 Encounter for general adult medical examination without abnormal findings (principal); E03.9 Hypothyroidism, unspecified; I10 Essential (primary) hypertension; F32.4 Major depressive disorder, single episode, in partial remission
CPT/HCPCS: 36415; 80048; 84443

== ENCOUNTER 2023-09-19 01:24 | Outpatient (CLI) | payer OTHER, SELFPAY ==
[2023-09-19 11:22] LABS: Calculated LDL 132 mg/dL (<100); Cholesterol 208 mg/dL (<200); HDL Cholesterol 63 mg/dL (40-60); Triglyceride 66 mg/dL (<150)
[2023-09-19 11:59] LABS: FREE T4 0.74 ng/dL (0.76-1.46)
[2023-09-19 18:14] LABS: T3, Total 82 ng/dL (97-169)
== END 2023-09-19 01:25 | disposition home or self-care (01) ==
LOC: LBO 01:24
PROVIDERS: PCP Nurse Practitioner Family; Visit Provider Nurse Practitioner Family
DX: E03.9 Hypothyroidism, unspecified (principal); I10 Essential (primary) hypertension; R79.89 Other specified abnormal findings of blood chemistry; E78.5 Hyperlipidemia, unspecified
CPT/HCPCS: 36415; 80061; 84439; 84480

== ENCOUNTER 2023-12-09 00:58 | Outpatient (CLI) | payer OTHER, SELFPAY ==
--- NOTE | 2023-12-09 | DI.CT_ITS ---
Exam(s) 3D RECON ON RAD CT WORKSTATION CT ABDOMEN PELVIS WO/W EXAM: CT ABDOMEN PELVIS WO/W CLINICAL HISTORY: F/U ABNL US, RT KIDNEY MASS,N28.89. TECHNIQUE: Imaging Protocol: Axial computed tomography images with coronal and sagittal reformatted images were created and reviewed. Images were performed from the lung bases through the ischial tuberosities before IV contrast and fol lowing IV contrast using a 70 second delay, followed by 7 minutes delayed images. 3D reconstructed images also performed during urographic phase.. CONTRAST MATERIAL: Intravenous: Omnipaque 350 Contrast volume:100 cc Oral: no COMPARISON: US US RENAL from 11/28/2023 CT 3D RECON ON RAD CT WORKSTATION from 12/09/2023 FINDINGS: Lung Bases: Normal where visualized. Liver: Normal density. No measurable mass. Gallbladder and biliary tract: No radiodense calculus or dilation. Pancreas: Normal density, no abnormal calcifications or inflammatory process. Spleen: Normal. Kidneys: Normal size, contour and axis. No radiodense stones or obstructive uropathy. Large enhancing right renal mass measuring 5.9 x 5.4 by 5.1 cm. No additional masses. No filling defects within the ureters. Adrenal glands: No masses seen. Lymph nodes: Within normal limits. Abdominal Aorta: Abdominal portion non-dilated. Soft tissues: Unremarkable. Bladder: No gross wall thickening. No evidence of a mass.No evidence of calculi. Bowel: Suture material at stomach. No obstruction or bowel wall thickening. Appendix normal. Peritoneal cavity: No ascites, collection or mesenteric inflammatory response. Soft tissues:. Unremarkable. Bones: Unremarkable for age.. Reproductive organs: Unremarkable for age.. IMPRESSION: 5.9 centimeter right renal mass suspicious for renal cell carcinoma. No additional masses. No evide nce of hydronephrosis. No evidence of metastatic disease. RADIATION DOSE DELIVERED: 2,115.31mGy.cm Total DLP DATA REPOSITORY: All CT scans at this facility are submitted to the National Radiology Data Registry (NRDR) Dose Index Registry (DIR) with the [employer] (ACR). RADIATION OPTIMIZATION: All CT scans at this facility use at least one of these dose optimization te chniques: automated exposure control; mA and/or kV adjustment per patient size (includes targeted exa ms where dose is matched to clinical indication); or iterative reconstruction.
[2023-12-09 15:12] LABS: Anion Gap 8.4 mmol/L (3-11); BUN 20 mg/dL (7-18); CO2 26.6 mmol/L (21.0-32.0); CREATININE 0.9 mg/dL (0.55-1.02); Calcium 9.2 mg/dL (8.5-10.1); Chloride 98 mmol/L (98-107); Estimated GFR 73.19 (mL/min/1.73m2); Glucose 83 mg/dL (74-106); Potassium 4.1 mmol/L (3.5-5.1); Sodium 133 mmol/L (136-145)
[2023-12-09] MEDS: Omnipaque 350 MG/ML 100 ML BTL IJ (15:57)
[2023-12-09] MEDS: Normal Saline - Diluent 50 ML VIAL IJ ×2 (15:58→15:59)
== END 2023-12-09 01:18 ==
LOC: DI 00:58
PROVIDERS: PCP Nurse Practitioner Family; Visit Provider Registered Nurse Nephrology
DX: N28.89 Other specified disorders of kidney and ureter (principal)
CPT/HCPCS: 80048; 74178; 76377; J3490

== ENCOUNTER 2024-02-18 02:35 | Outpatient (CLI) | payer BC, SELFPAY ==
[2024-02-18 16:20] LABS: Abs Immature Grans 0.02 10^3/uL (0.0-0.06); Absolute Basophil Count 0.05 10^3/uL (0.0-0.2); Absolute Eosinophil Count 0.13 10^3/uL (0.0-0.7); Absolute Lymphocyte Count 3.31 10^3/uL (1.2-3.4); Absolute Monocyte Count 0.47 10^3/uL (0.1-0.8); Absolute Neutrophil Count 3.68 10^3/uL (1.2-6.7); Basophils % 0.7 %; Eosinophils % 1.7 %; HCT 39.1 % (36.0-46.0); HGB 12.8 g/dL (11.2-15.7); Immature Grans % 0.3 %; Lymphocytes % 43.2 %; MCH 31.7 pg (27.0-33.0); MCHC 32.7 % (32.0-36.0); MCV 97 fL (80-95); MPV 8.8 fL (8.0-11.0); Monocytes % 6.1 %; Platelet Count 290 10^3/uL (130-400); RBC 4.04 10^6/uL (3.93-5.22); RDW 13.6 % (11.7-14.6); RDW-SD 48.9 fL; WBC 7.66 10^3/uL (4.4-10.8)
[2024-02-18 16:35] LABS: Bilirubin Negative (Negative); Blood Negative (Negative); Clarity Clear (Clear); Glucose Negative (Negative); Ketones Negative (Negative); Leukocyte Esterase Negative (Negative); Nitrite Negative (Negative); Urobilinogen 0.2 mg/dL (Up to 0.2)
[2024-02-18 18:10] LABS: ALT 26 U/L (14-59); AST 21 U/L (15-37); Albumin 3.9 g/dL (3.4-5.0); Alkaline Phosphatase 56 U/L (46-116); BUN 28 mg/dL (7-18); Bilirubin, Total 0.32 mg/dL (0.2-1.0); Calcium 9.3 mg/dL (8.5-10.1); Chloride 102 mmol/L (98-107); Estimated GFR 64.49 (mL/min/1.73m2); Glucose 79 mg/dL (74-106); Potassium 4.4 mmol/L (3.5-5.1); Sodium 139 mmol/L (136-145); Total Protein 7.5 g/dL (6.4-8.2)
== END 2024-02-18 02:36 | disposition home or self-care (01) ==
PROVIDERS: PCP Nurse Practitioner Family; Visit Provider Surgery
DX: N28.89 Other specified disorders of kidney and ureter (principal)
CPT/HCPCS: 36415; 80053; 81003; 85025

== ENCOUNTER 2024-03-20 11:43 | Outpatient (CLI) | payer BC, SELFPAY ==
--- NOTE | 2024-03-20 11:45 | DI.RAD_ITS ---
Exam(s) XR LUMBAR SPINE COMPLETE EXAM: XR LUMBAR SPINE COMPLETE CLINICAL HISTORY: eval pathology. TECHNIQUE: 2D digital imaging was performed of the lumbar spine. Five images were obtained. AP, la teral, right oblique, left oblique and L5-S1 spot views were obtained. COMPARISON: CR XR LUMBAR SPINE COMPLETE from 01/23/[address] ABDOMEN PELVIS WO/W from 12/09/2023 CT 3D RECON ON RAD CT WORKSTATION from 12/09/2023 FINDINGS: BONES: No fracture or destructive lesion. There are prominent osteophytes at the superior endplates o f L1 and L2. These are unchanged compared to the CT examination from 12/09/2023. There are endplate osteophytes at several levels of the lumbar spine. Mild degenerative changes of the facets are seen at L4-5 and L5-S1. DISKS: There is disc space narrowing at L1-L2, L3-L4 and L5-S1. ALIGNMENT: Lumbar spinal alignment is within normal limits. No spondylolysis or spondylolisthesis. SOFT TISSUE: Normal. IMPRESSION: 1. No acute abnormality. 2. Degenerative changes in the lumbar spine. DATA REPOSITORY: RADIATION DOSE DELIVERED:
--- OUTSIDE RECORDS SUMMARY | 2024-03-20 11:50 | XMS_ITS | Encounter Summary ---
[facility] Address [facility] [place] [address] Care Team Providers Care Piano Player Name Role Phone BarbaraSusan APRN Primary Care Provider [phone] Encounter Details Date Type Department Care Team (Late st Contact Info) Description 03/02/2024 [place] [id number] Case Riggs MD [facility] [place] [address] Social History Tobacco Use Types Packs/Day Years Used Date Smoking Tobacco: Former Smokeless Tobacco: Never Comments:quit 1990 Alcohol Use Standard Drinks/Week Comments Yes 0 (1 standard drink = 0.6 oz pur e alcohol) <1 per day [facility] Utilities Answer Date Recorded In the past 12 months has [employer] electric, gas, oil, or water company threatened to shut off services in your home? No 02/24/2024 Hunger Vital Sign Answer Date Recorded Within the past 12 months, y ou worried that your food would run out before you got the money to buy more. Never true 02/24/20 24 Within the past 12 months, t he food you bought just didn't last and you didn't have money to get more. Never true 02/24/2024 PRAPARE - Transportation Answer Date Re corded In the past 12 months, has l ack of transportation kept you from medical appointments or from getting medications? No 01/30 In the past 12 months, has l ack of transportation kept you from meetings, work, or from getting things needed for daily living? No 02/24/2024 Housing Stability Vital Sign Answer Gil e Recorded In the last 12 months, was t here a time when you were not able to pay the mortgage or rent on time? No 02/24/2024 In the past 12 months, how m any times have you moved where you were living? 0 02/24/2024 At any time in the past 12 m onths, were you homeless or living in a mcc (including now)? No 02/24/2024 [facility] IPV Inpatient Questions Answer Date Recorded Does Anyone Try to Keep You From Having Contact with Others or Doing Things Outside Your Home? 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 She will f/u as needed for any unexplained pain or hematuria in the future. documented in this encounter Plan of Treatment Upcoming Encounters Date Type Department Care Team (Late st Contact Info) Description 04/13/2024 3:20 PM EST Office Visit Dermatology at [facility] [address] [place] [phone] Felicitas Llanes MD [facility] DR [address] [address] 04/26/2024 4:00 PM EST Office Visit Nephrology Hypertension at [facility] [place] [address] Denia Xiao APRN [facility] [place] [address] documented as of this encounter Goals Goal Patient Goal Type Associated Problems Recent Progress Patient-Stated? Author movement Exercise No Arsh So Note: Try cardio chair exercises. Health Buyer Liaison will send links to videos. Self monitoring Lifestyle On track(2021 10:00 AM EST) No Denia Khalil MD Note: Keep food log until you are seen by the dieititian. Record everything you eat or drink, include time eaten and any emotional changes that are significant. Actrivity Lifestyle No Denia Khalil MD Note: Open your yoga rusty and see if you might be interested in trying this gentle form of movement to activate your muscles. Nutrition goals updated 3 Lifestyle No Arlin Mac I, HILLARY Note: Continue to abstain from alcohol, imagining that as the reality post-surgery, that is our recommendation (no alcohol) Continue protein drink in place of breakfast or with parts of breakfast. Keep up great work eating first meal no later than noon on the weekend and try to plan for 3 eating events in total on a weekend day. Continue tracking in myplate. Start to look at total grams protein (Food diary section)- aim for a minimum of 60 grams per day. Aim to choose ONE grain choice at lunch if two are offered (or half of each). Plan for a back-up snack if dinner takes a while: Focus on veggies and protein (nuts- avoid eating directly out of the package), something quick like baby carrots or ramsey pepper- things you might be prepping for dinner) Continue to sip throughout the morning at work. 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 Mil lemon or crystal light is fine! Continue to watch dinner portions: Try and have focus and attention right before and during dinner, make the meal last 20-30 minutes. Notice satisfaction / physical hunger and allow for more food at the 20 minute rebeka self-awareness Lifestyle No Arsh So Note: Practice mindful eating, the pause (STOP, and urge surfing. Health Buyer Liaison will mail hand-outs. documented as of this encounter Visit Diagnoses Not on filedocumented in this encounter Care Teams Piano Player Relationship Specialty Start Date End Date Barbara, Susan Mobley APRN [address] [place] [address] PCP - General Internal Medicine 09/15/23 documented as of this encounter
--- OUTSIDE RECORDS SUMMARY | 2024-03-20 11:50 | XMS_ITS | Encounter Summary ---
Author Organization [facility] [place] [address] Care Team Providers Care Archivist Political History Name Role Phone Susan Jimenez APRN Primary Care Provider [phone] Reason for Visit * Auth/Cert (Routine) Specialty Diagnoses / Procedures Referred By Yury thornton Referred To Contact Diagnoses Right renal mass TO MD Procedures PRO LAP, RADICAL NEPHRECTOMY @LAPAROSCOPY, RADICAL NEPHRECTOMY (WRVU ) Chio Riggs MD [facility] [place] [address] [facility] Referral ID Status Reason Start Date Expiration Date Visits Re quested Visits Authorized [id number] 1 1 Encounter Details Date Type Department Care Team (Latest Contact Info) Description 02/23/2024 5:49 AM EST - 02/24/2024 3:33 PM EST Hospital Encounter Surgical Unit Level 3 [place] [address] Chio Riggs MD [facility] [place] [address] [place] [address] Discharge Disposition: Home Social History Tobacco Use Types Packs/Day Years Used Date Smoking Tobacco: Former Smokeless Tobacco: Never Comments:quit 1990 Alcohol Use Standard Drinks/Week Comments Yes 0 (1 standard drink = 0.6 oz pur e alcohol) <1 per day [facility] Utilities Answer Date Recorded In the past 12 months has th e electric, gas, oil, or water company threatened [...] any time in the past 12 m [facility], were you homeless or living in a skilled nursing (including now)? No 02/24/2024 IPV Inpatient Questions Answer Date Recorded Does [...] on file documented as of this encounter Last Filed Vital Signs Vital Sign Reading Time Taken Comments Blood Pressure 116/54 02/24/2024 7:40 AM EST Pulse 64 02/23/2024 12:00 PM EST Temperature 36.6 ??C (97.9 ??F) 02/24/2024 7:40 AM ES T Respiratory Rate 18 02/24/2024 7:40 AM EST Oxygen Saturation 92% 02/24/2024 7:40 AM EST Inhaled Oxygen Concentration - - Weight 97.9 kg (215 lb 14.4 oz) 02/23/2024 6:17 AM EST Height 165.1 cm (5' 5) 02/23/2024 6:17 AM EST Body Mass Index 35.93 02/23/2024 6:17 AM EST documented in this encounter Discharge Summaries * Chio Riggs MD - 02/24/2024 1:34 PM EST Discharge Summary Patient Name: Liss Mosely Patient Age: 58 y.o. Language: Andorran Race: White Ethnicity: Not nor Admit date: 02/23/2024 Discharge date: 02/24/2024 Attending Physician: Chio Riggs MD Discharge Diagnoses (Hospital Problems) and Secondary Diagnoses (Chronic Problems): Active Hospital Problems Diagnosis Renal mass Resolved Hospital Problems No resolved problems to display. 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 female with a history of TESSA, CKD, alcohol abuse, HTN, prior , gastric surgery now with 6cm right renal mass. She underwent a renal u/s as a part of a workup for rising Creatinine with the incidental findings of a 6-7 cm right renal mass. She presents today for RIGHT laparoscopic radical nephrectomy. There have been no changes to her history. No recent illness or changes in health. PreOp UCx - na Anticoagulation: none OR Findings Uncomplicated right radical hand-assisted laparoscopic nephrectomy Right adrenal spared 1 artery, 1 vein Ureter clipped Plan: Remove quigley tomorrow Fu labs Hospital Course: Patient was admitted elect[facility] to [facility] via the same day surgery program and underwent the above procedure. She tolerated surgery well and was tranferred from the PACU to the general floor in good condition a few hours after surgery. POD1: Hospital course was uncomplicated and patient passed void trial on POD1. She remained afebrile, with stable vital signs throughout her hospital stay. Today, on POD# 1 she has met all criteria for discharge home: her pain is well controlled with medications by mouth, she is tolerating a regular diet, is voiding spontaneously without difficulties, and is up and ambulatingwithout complications. She has been deemed safe for discharge. Plan: -Follow up: Dr. Riggs to call with pathology results. -Cx: None Vital Signs at Discharge: Weight: Wt Readings from Last 1 Encounters: 02/23/24 97.9 kg (215 lb 14.4 oz) Height: Ht Readings from Last 1 Encounters: 02/23/24 165.1 cm (5' 5) BMI: Body mass index is 35.93 kg/m??. Last value Range last 24 hrs Temperature Temp: 36.6 ??C (97.9 ??F) Temp: [36.6 ??C (97.9 ??F)-37.2 ??C (99 ??F)] Heart Rate Heart Rate: 64 Heart Rate: -- Blood Pressure BP: 116/54 BP: (116-131)/(54-68) Respiratory Rate Resp: 18 Resp: [15-20] SpO2 SpO2: 92 % SpO2: [92 %-98 %] Exam at Discharge: General: NAD, resting comfortably, pleasant, conversant HEENT: Normocephalic, atraumatic, anicteric sclerae CVS: Reg rate Pulm: Non labored on room air Abd: soft, nontender, non-distended. Incisions c/d/I. : No Quigley Skin: warm, dry Ext: well perfused Functional and Cognitive Status: Ambulating and cognitively intact. Important Studies and Lab Data: Labs:Last 3 wbc, hgb, hct plt Recent Labs 02/24/24 0341 02/23/24 1059 11/13/23 1113 WBC 8.14 9.55* 8.17 HGB 11.3* 12.2 12.5 HCT 34.2* 37.4 38.5 PLATELET 210 231 246 Last 3 Lytes Recent Labs 02/24/24 0340 02/23/24 1059 11/13/23 1113 NA 132* 135 135 K 4.2 4.6 3.8 CL 98 101 97* CO2 23 22 28 BUN 22* 23* 18 CREATININE 1.32* 1.08 0.80 Studies: No results found for this visit on 02/23/24. Pending Studies and Lab Data: No current labs Discharge Conditions/Prognosis: Stable, medically appropriate for discharge Discharge to: Home Updated Allergies/ADRs: Allergies Allergen Reactions Adhesive Tape CIS - Localized Reaction Citalopram Other (See Comments) Other reaction(s): FATIGUE Ketorolac Other (See Comments) Mold Rash Adhesive Rash Other reaction(s): SKIN RASH Immunizations Given this Hospitalization: Immunization History Administered Date(s) Administered Covid-19 Monovalent (Moderna Spikevax) 12yrs+ ([id number]) 06/19/2020, 07/17/2020, 05/02/2021 Td Adult (Decavac, Tenivac) 11/21/2005, 02/11/2012, 06/21/2021 Td Adult (not absorbed) 11/21/2005 Tdap (Adacel, Boostrix) 02/11/2012 Discharge Medications: Your Medications Continued medications, unchanged Dose Details acetaminophen 325 mg tablet Commonly known as: Tylenol Take 2 tablets by mouth every 6 hours as needed for Pain. 650 mg Refills: 0 amoxicillin 500 mg capsule Commonly known as: Amoxil TAKE FOUR CAPSULES BY MOUTH 1 HOUR PRIOR TO APPOINTMENT Refills: 0 BARIATRIC MULTIVITAMINS ORAL Take 1 tablet by mouth daily. 1 tablet Refills: 0 Biotin 1 mg tablet Take by mouth. Refills: 0 Calcium Citrate 250 mg calcium tablet Commonly known as: Calcitrate Take by mouth. Refills: 0 lactobacillus rhamnosus (GG) 10 billion cell Capsule Commonly known as: CULTURELLE Take 1 capsule by mouth daily. 1 capsule Refills: 0 levocetirizine 5 mg tablet Commonly known as: Xyzal Take 1 tablet by mouth daily. 5 mg Quantity: 90 tablet Refills: 3 levothyroxine 150 mcg tablet Commonly known as: Synthroid Take 150 mcg by mouth daily. 150 mcg Refills: 0 lisinopriL 10 mg tablet Commonly known as: Zestril Take 10 mg by mouth daily. 10 mg Refills: 0 Minoxidil 5 % Foam Refills: 0 montelukast 10 mg tablet Commonly known as: Singulair Take 10 mg by mouth nightly. 10 mg Refills: 0 nystatin 100,000 unit/gram Powder Commonly known as: MYCOSTATIN Apply topically 4 times daily. Quantity: 30 g Refills: 0 sertraline 50 mg tablet Commonly known as: Zoloft Take 50 mg by mouth daily. 50 mg Refills: 0 sulfacetamide 10 % Suspension Commonly known as: Klaron Apply topically to face 1-2 times daily for rosacea Quantity: 118 mL Refills: 3 Smoking Status at Discharge: Social History Tobacco Use Smoking Status Former Smokeless Tobacco Never Tobacco Comments quit 1990 Instructions Given to Patient at Discharge: Patient Instructions DISCHARGE INSTRUCTIONS CALL YOUR PHYSICIAN IF: You have a fever greater than 101 degrees F within one month of your surgery. You have diarrhea or vomiting for more than 24 hours, or stop having bowel movements or passing gas. You have worsening pain, not controlled with your pain medication. You develop redness, swelling, or new drainage from your wound. You have any other acute change in your health status. MEDICATIONS You may take acetaminophen (Tylenol) for pain control. Please avoid NSAIDs (e.g., ibuprofen, naproxen). Narcotic pain medications may cause constipation. Stool softeners, such as Colace; mild laxatives, such as Milk of Magnesia, Sennakot, or Ducolax tabs; or enemas may be used if needed and are [id number] medications available at most local pharmacies. Prunes or prune juice, taken daily, can also be helpful for constipation treatment or prevention and are available at most supermarkets. DRIVING RESTRICTIONS Do not operate a vehicle if you are too sore from surgery to enter or exit your vehicle comfortably, or if you are too sore to easily check your blind spot. No driving while using prescription pain medications. ACTIVITIES No heavy lifting. You may lift what is comfortable to lift with one arm. Nothing greater than 10 pounds (e.g., a full gallon jug) until re-evaluated by your physician. Discuss return to work or school with your physician. Take several slow, short walks each day for the first two weeks, and gradually increase your distance. Exercise will assist in your recovery. DIET Eat a well-balanced diet. Fresh fruits, vegetables and fiber-containing foods are recommended. Thiswill assist in wound healing. WOUND CARE You can shower as usual and wash the incisions gently. Pat the incision dry with a clean, dry towel. Do not soak the wound (avoid spas, pools, and bathtubs) until it is fully healed. Do not use creams, oils, or ointments on the wound. Keep the wound open to air if it is not draining. Do not remove sutures or bonny. COMFORT Some incision soreness can be expected. Take your pain medication as needed and prescribed. Slowly decrease your use of pain medication as pain lessens. CONTACT INFORMATION To contact your provider or change your appointment, please call the Urology clinic at during business hours or during off-hours. FOLLOW-UP APPOINTMENT You do not have a follow up appointment scheduled with urology. However, Dr. Riggs will give you a call with pathology results when they finalize in approximately 1-2 weeks. . Future Appointments and Orders Future Appointments and Orders Future Appointments Provider Department Dept Phone 04/13/2024 3:20 PM Felicitas Llanes MD Dermatology at [facility] Arrive at: [employer] [address] [place] [address] 04/26/2024 4:00 PM Denia Xiao APRN Nephrology Hypertension at [facility] Arrive at: [employer]et[employer] Area [phone] General Instructions None Future Appointments and Orders Future Appointments and Orders Future Appointments Provider Department Dept Phone 04/13/2024 3:20 PM Felicitas Llanes MD Dermatology at [facility] Arrive at: [employer] [address] [phone] 04/26/2024 4:00 PM Denia Xiao APRN Nephrology Hypertension at [facility] Arrive at: [employer]et[employer] Engineer Area [phone] Follow-Up: Future Appointments Date Time Provider Department Center 04/13/2024 3:20 PM Felicitas Llanes MD [facility] Derm [facility] 04/26/2024 4:[address] [facility] Primary Care Provider: Susan Jimenez APRN [phone] Follow-up Recommendations for Providers: None Unexpected Findings: None Call your doctor if: Please call your doctor immediately or go to an Emergency Department if you notice worsening pain not controlled by pain medications, uncontrolled headache, vision changes, chest pain, difficulty breathing, persistent nausea and vomiting, new redness or swelling in any extremities, new onset weakness or changes in sensation, or for any fevers greater than 101.3 F. Your care was managed by the Urology Team at [facility]. If you have any questions or concerns, please feel free to contact us. Provider Contact Information: Urology Clinic: [facility] (after business hours): CONG Jeffries 02/24/2024 documented in this encounter Discharge Instructions * Patient Instructions* Noe Salcido PA - 02/24/2024 12:38 PM EST DISCHARGE INSTRUCTIONS CALL YOUR PHYSICIAN IF: You have a fever greater than 101 degrees F within one month of your surgery. You have diarrhea or vomiting for more than 24 hours, or stop having bowel movements or passing gas. You have worsening pain, not controlled with your pain medication. You develop redness, swelling, or new drainage from your wound. You have any other acute change in your health status. MEDICATIONS You may take acetaminophen (Tylenol) for pain control. Please avoid NSAIDs (e.g., ibuprofen, naproxen). Narcotic pain medications may cause constipation. Stool softeners, such as Colace; mild laxatives, such as Milk of Magnesia, Sennakot, or Ducolax tabs; or enemas may be used if needed and are jrsn-dso-[id number] medications available at most local pharmacies. Prunes or prune juice, taken daily, can also be helpful for constipation treatment or prevention and are available at most supermarkets. DRIVING RESTRICTIONS Do not operate a vehicle if you are too sore from surgery to enter or exit your vehicle comfortably, or if you are too sore to easily check your blind spot. No driving while using prescription pain medications. ACTIVITIES No heavy lifting. You may lift what is comfortable to lift with one arm. Nothing greater than 10 pounds (e.g., a full gallon jug) until re-evaluated by your physician. Discuss return to work or school with your physician. Take several slow, short walks each day for the first two weeks, and gradually increase your distance. Exercise will assist in your recovery. DIET Eat a well-balanced diet. Fresh fruits, vegetables and fiber-containing foods are recommended. Thiswill assist in wound healing. WOUND CARE You can shower as usual and wash the incisions gently. Pat the incision dry with a clean, dry towel. Do not soak the wound (avoid spas, pools, and bathtubs) until it is fully healed. Do not use creams, oils, or ointments on the wound. Keep the wound open to air if it is not draining. Do not remove sutures or bonny. COMFORT Some incision soreness can be expected. Take your pain medication as needed and prescribed. Slowly decrease your use of pain medication as pain lessens. CONTACT INFORMATION To contact your provider or change your appointment, please call the Urology clinic at during business hours or during off-hours. FOLLOW-UP APPOINTMENT You do not have a follow up appointment scheduled with urology. However, Dr. Riggs will give you a call with pathology results when they finalize in approximately 1-2 weeks. . Future Appointments and Orders Future Appointments and Orders Future Appointments Provider Department Dept Phone 04/13/2024 3:20 PM Felicitas Llanes MD Dermatology at [facility] Arrive at: [employer]et[employer] Engineer [address] [place] [address] 04/26/2024 4:00 PM Denia Xiao APRN Nephrology Hypertension at [facility] Arrive at: [employer]et[employer] Engineer Area [phone] documented in this encounter Medications at Time of Discharge Medication Sig Dispensed Refills Start Date End Date multivit-min/iron/folic acid/K (BARIATRIC MULTIVITAMINS ORAL) Take 1 tablet by mouth daily. amoxicillin (Amoxil) 500 mg capsule TAKE FOUR CAPSULES BY MOUTH 1 HOUR PRIOR TO APPOINTMENT 07/09/2023 Calcium Citrate (Calcitrate) 250 mg calcium tablet Take by mouth. 07/29/2023 nystatin (MYCOSTATIN) 100,000 unit/gram PowderIndications:Intert kae Apply topically 4 times daily. 30 g 02/04/2023 acetaminophen (Tylenol) 325 mg tablet Take 2 tablets by mouth every 6 hours as needed for Pain. 10/09/2022 lisinopriL (Zestril) 10 mg Tablet Take 10 mg by mouth daily. 07/21/2021 Minoxidil 5 % Foam 05/12/2020 lactobacillus rhamnosus, GG, (CULTURELLE) 10 billion cell Capsule Take 1 capsule by mouth daily. Biotin 1 mg Tablet Take by mouth. montelukast (Singulair) 10 mg Tablet Take 10 mg by mouth nightly. levothyroxine (Synthroid) 150 mcg Tablet Take 150 mcg by mouth daily. levocetirizine (XYZAL) 5 mg Tablet Take 1 tablet by mouth daily. 90 tablet 3 09/22/2019 sertraline (Zoloft) 50 mg Tablet Take 50 mg by mouth daily. 11/04/2013 sulfacetamide (KLARON) 10 % SuspensionIndications:Ro sacea Apply topically to face 1-2 times daily for rosacea 118 mL 3 06/12/2017 documented as of this encounter Progress Notes * Nita Rockwell RN - 02/24/2024 3:33 PM EST Patient discharge to home. PIV removed, site benign. My assessment remains unchanged from my previous assessment. This RN discussed pain management with patient, pain tolerable at time of discharge. Patient refused medication prior to discharge. Patient has all belongings and supplies needed. This RN provided patient with AVS. This was reviewed, patient verbalizes understanding of AVS. All questions answered. Patient encouraged to call with questions or concerns. Patient discharged to home withfamily at approximately 1530. * Rosa Graves RN - 02/23/2024 9:06 PM EST Page Sent Successfully Page Confirmation To Pager number: [phone] From Submitter: Rosa Graves Urgency Level: FYI Callback Number: [phone] The following Message was sent: [] - Callback:[phone] Melany Order home meds Lisinopril 10mg, Melatonin, Montelukast 10mg. Rosa Graves The following status was returned from the chief service observer: Page for [phone] successfully sent to [phone] having status of Available. * Avery Serrano Jr., RN - 02/23/2024 4:20 PM EST OUTCOME EVALUATION NOTE: OUTCOME SUMMARY: Pt A&Ox4, VSS on RA. Pain controlled with scheduled and PRN medications, see MAR. Pt family at bedside and updated by provider. Surgical sites with derma bound [employer]. Quigley draining CYU. Patient tolerating diet. IVFs infusing. Call ramsey within reach. PLAN MOVING FORWARD: Mobility IVFs Quigley DC Planning INDIVIDUALIZED FALL PREVENTION INTERVENTIONS: Patient-specific fall risk factors per assessment: [current deficits]: Hospital environment, lines and drains, pain, pain control. Assistance [level of assistance required for transfers and ambulation]: SBA with FWW Supervision [direct monitoring required during toileting and ADLs]: Eyes on with ADLs Surveillance [continuous indirect monitoring]: daniel Das NKE. * Alanis Webster RN - 02/23/2024 11:01 AM EST Hand off from Lilly TRIANA Patient resting in bed with eyes closed. Quigley draining clear, yellow urine. Abdominal incisions [employer] and well approx Report called to Jonas TRIANA documented in this encounter H&P Notes * Chio Riggs MD - 02/23/2024 5:58 AM EST Urology H&P Liss Mosley is a 58 y.o. female with a history of TESSA, CKD, alcohol abuse, HTN, prior , gastric surgery now with 6cm right renal mass. She underwent a renal u/s as a part of a workup for rising Creatinine with the incidental findings of a 6-7 cm right renal mass. She presents today for RIGHT laparoscopic radical nephrectomy. There have been no changes to her history. No recent illness or changes in health. PreOp UCx - na Anticoagulation: none MEDICAL AND SURGICAL HISTORY Past Medical History: Diagnosis Date Allergic rhinitis Past Surgical History: Procedure Laterality Date SECTION 1988 PRO LAPAROSCOPY, SURG/GASTRIC RESTRICTIVE PROC, LONGITUDINAL GASTRECTOMY N/A 10/08/2022 @LAPAROSCOPY, SURG/GASTRIC RESTRICTIVE PROC, LONGITUDINAL GASTRECTOMY (WRVU 20.38) performed by Annabella Borrero MD at [facility] MAIN OR PRO UPPER GI ENDOSCOPY, DIAGNOSTIC N/A 10/08/2022 EGD, UPPER GI ENDOSCOPY (WRVU 2.09) performed by Annabella Borrero MD at [facility] MAIN OR ALLERGIES Allergies Allergen Reactions Adhesive Tape CIS - Localized Reaction Citalopram Other (See Comments) Other reaction(s): FATIGUE Ketorolac Other (See Comments) Mold Rash Adhesive Rash Other reaction(s): SKIN RASH MEDICATIONS No current facility-administered medications on file prior to encounter. Current Outpatient Medications on File Prior to Encounter Medication Sig Dispense Refill multivit-min/iron/folic acid/K (BARIATRIC MULTIVITAMINS ORAL) Take 1 tablet by mouth daily. amoxicillin (Amoxil) 500 mg capsule TAKE FOUR CAPSULES BY MOUTH 1 HOUR PRIOR TO APPOINTMENT Calcium Citrate (Calcitrate) 250 mg calcium tablet Take by mouth. nystatin (MYCOSTATIN) 100,000 unit/gram Powder Apply topically 4 times daily. (Patient taking differently: Apply topically 4 times daily. PRN) 30 g 0 acetaminophen (Tylenol) 325 mg tablet Take 2 tablets by mouth every 6 hours as needed for Pain. lisinopriL (Zestril) 10 mg Tablet Take 10 mg by mouth daily. Minoxidil 5 % Foam lactobacillus rhamnosus, GG, (CULTURELLE) 10 billion cell Capsule Take 1 capsule by mouth daily. Biotin 1 mg Tablet Take by mouth. montelukast (Singulair) 10 mg Tablet Take 10 mg by mouth nightly. levothyroxine (Synthroid) 150 mcg Tablet Take 150 mcg by mouth daily. levocetirizine (XYZAL) 5 mg Tablet Take 1 tablet by mouth daily. 90 tablet 3 sertraline (Zoloft) 50 mg Tablet Take 50 mg by mouth daily. sulfacetamide (KLARON) 10 % Suspension Apply topically to face 1-2 times daily for rosacea 118 mL 3 PHYSICAL EXAM Temp: -- Heart Rate: -- Resp: -- BP: ()/() SpO2: -- Heart Rate from SpO2: -- GEN: Resting comfortably, conversant, NAD. CHEST: respiratory effort normal CV: Regular rate. Labs: Recent Labs 11/13/23 1113 WBC 8.17 HGB 12.5 HCT 38.5 PLATELET 246 Recent Labs 11/13/23 1113 NA 135 K 3.8 CL 97* CO2 28 BUN 18 CREATININE 0.80 Imaging: Relevant imaging reviewed A/P: 58 y.o. female who presents today for above procedures. All risks, benefits, and alternatives have been explained, and questions answered. Proceed with scheduled procedure. - Consent confirmed, all questions answered. - Patient marked -RIGHT - Preop abx: ancef - SQH: 5000units - T/S: ordered Kandi Garcia MD 02/17/2024 [id number] documented in this encounter Nursing Notes * Lilly Harp RN - 02/23/2024 10:41 AM EST 1030: Pt. Arrived from OR to PA15. Monitors on, alarms active and audible. documented in this encounter Miscellaneous Notes * Care Management - Muriel Boyd - 02/24/2024 2:44 PM EST Patient completed a [place] advance directive and identified her son Rodney as her health care agent * Initial Assessments - Yola Chavez RN - 02/24/2024 9:46 AM EST Office of Care Management Initial Assessment Yola Chavez RN reviewed record and discussed patient with Care Team. Source of Information: Team, bedside nurse, medical record, and Patient Introduced self/reviewed role; services accepted. Admitted From: Home Reason for Hospitalization: Right total Nephrectomy Past medical History: Past Medical History: Diagnosis Date Allergic rhinitis Hospitalizations Within the Past 30 Days: no previous admission in last 30 days Current Decision-Making Capacity: Self If AD's have not been completed the following surrogate would be surrogate decision maker per [place] surrogate decision making law. (Only good for 180 days) Any patient receiving care in [place] must abide by [place] law. The hierarchy for surrogate decision making is: (a) Patient???s spouse or civil union partner unless there is a divorce proceeding, separation agreement, or restraining order limiting that person???s relationship with the patient. (b) Any adult son or daughter of the patient. (c) Either parent of the patient. (d) Any adult brother or sister of the patient. (e) Any adult grandchild of the patient. (f) Any grandparent of the patient. (g) Any adult aunt, uncle, niece, or nephew of the patient. (h) A close friend of the patient. (i) The agent with financial power of securities attorney or a conservator appointed in accordance with RSA 464-A. (j) The guardian of the patient???s estate. Advance Care Planning: Attempt Cardiopulmonary Resuscitation - Inpatient <no information> -Advanced Directive: No, need to discuss (Put in AD folder) Current Coping/Education/Information Needs: Ok Current Functional Ability: Assistive Person Functional Status Prior to Admission: Independent Prior ADLs & IADLs: Independent with all ADLs & IADLs Home Environment: Others in the home: pet(s). Current Living Arrangements: home/apartment/condo. Accessibility Concerns:3 alfonso and lives on one level. In the last 12 months, was there a time when you were not able to pay the mortgage or rent on time?: No In the past 12 months, how many times have you moved where you were living?: 0 At any time in the past 12 months, were you homeless or living in a skilled nursing (including now)?: No In the past 12 months has the [employer], gas, oil, or water Aldis threatened to shut off services in your home?: No Within the past 12 months, you worried that your food would run out before you got the money to buymore.: Never true Within the past 12 months, the food you bought just didn't last and you didn't have money to get more.: Never true Resource / Environmental Concerns: Resource/Environmental Concerns: none In the past 12 months, has lack of transportation kept you from medical appointments or from getting medications?: No In the past 12 months, has lack of transportation kept you from meetings, work, or from getting things needed for daily living?: No Current DME: none Home Address confirmed as: [address] [place] [id number] Social & Family Supports: Extended Emergency Contact Information Primary Emergency Contact: Griselda Pate [place] [facility] Mobile Relation: Mother Secondary Emergency Contact: Alisha Mosley Address: [address] [place] [id number] [place] [address] of [facility] Mobile Relation: Child Current Care Provided by: self Provides Primary Care For: no one Caregiver if needed: sibling(s) Quality of Family relationships: helpful, involved Community Resources being provided currently: none Behavioral Health History: Denies Substance Use/Abuse listed: Social History Tobacco Use Smoking Status Former Smokeless Tobacco Never Tobacco Comments quit 1990 In the past year have you used an illegal drug or used a prescription medication for non-medical reasons?: No 0 No problems reported 1-2 Low level 3-5 Moderate level 6-8 Substantial level 9- 10 Severe level In the past year have you had 4 or more drinks a day containing alcohol?: No 0 to 7 points: Low risk 8 to 15 points: Medium risk 16 to 19 points: High risk 20 to 40 points: Addiction likely Other Pertinent/Service Specific Information: n/a Health/Prescription Coverage: Primary Insurance: [employer] [place] Payor[place] [employer] [place] / Plan[place] / Product Type: *No Product type* / Secondary Insurance: N/A Prescription Coverage: Yes Preferred Pharmacy[facility] - [place], [place] - [address] [address] [facility] - [place], [place] - [address] [facility] [address] [facility] [address] [place], [place] - [address] [facility] [address] [facility] [address] [facility] [address] Status: Patient is a : No Primary Care Provider listed: Susan Jimenez, INSTRUCTIONAL SUPPORT SPECIALIST [phone] Patient/Caregiver Goals of Treatment: Potential Needs for Transition of Care: none Agency Referrals: Not Applicable Transportation: no concerns Transportation Anticipated: family or friend will provide Concerns to be Addressed: no discharge needs identified Assessment: Patient is admitted to [facility] service for renal mass Plan going forward: Patient is s/p RIGHT laparoscopic radical nephrectomy. Patient will go home with no discharge needs when med ready for discharge. Care Management team will continue to follow and assist with discharge planing and coordination of care as indicated. Yola Chavez RN, BSN Case Management Work [phone] * Plan of Care - Rosa Graves RN - 02/23/2024 10:33 PM EST OUTCOME EVALUATION NOTE: OUTCOME SUMMARY: A&O x 4. Pleasant and cooperative with care. VSS on 1L NC, RA baseline. C-pap from home at night. OOB to BR, stand-by assist. Independent in bed, frequent T+P encouraged. Call ramsey within reach. Bed alarm on. Safety and fall precautions maintained. PLAN MOVING FORWARD: Pain control Mobilize D/c planning INDIVIDUALIZED FALL PREVENTION: Patient is currently a moderate risk to Fall. Patient educated on bed/chair alarm, demonstrates proper use of call ramsey and verbalizes understanding of fall preventions implemented. Patient-specific fall risk factors per assessment: Pain, Medications, Hospital Environment. Assistance: OOB to BR, stand-by assist. Supervision: Independent with ADL's. Surveillance: Masimo, Purposeful Rounding, Nurse Knowledge Exchange. Problem: Adult Inpatient Plan of Care Goal: Plan of Care Review Outcome: Ongoing (Interventions Implemented as Appropriate) Goal: Patient-Specific Goal (Individualized) Outcome: Ongoing (Interventions Implemented as Appropriate) Goal: Absence of Hospital-Acquired Illness or Injury Outcome: Ongoing (Interventions Implemented as Appropriate) Goal: Optimal Comfort and Wellbeing Outcome: Ongoing (Interventions Implemented as Appropriate) Goal: Readiness for Transition of Care Outcome: Ongoing (Interventions Implemented as Appropriate) * Plan of Care - Avery Serrano Jr., RN - 02/23/2024 4:29 PM EST Problem: Adult Inpatient Plan of Care Goal: Plan of Care Review Outcome: Ongoing (Interventions Implemented as Appropriate) Goal: Patient-Specific Goal (Individualized) Outcome: Ongoing (Interventions Implemented as Appropriate) Goal: Absence of Hospital-Acquired Illness or Injury Outcome: Ongoing (Interventions Implemented as Appropriate) Goal: Optimal Comfort and Wellbeing Outcome: Ongoing (Interventions Implemented as Appropriate) Goal: Readiness for Transition of Care Outcome: Ongoing (Interventions Implemented as Appropriate) * Op Note - Kandi Garcia MD - 02/23/2024 8:[address] [facility] [place] Patient Name: Liss Mosley : [id number] MR#: [id number] Case Date: 02/23/2024 Surgeon: Surgeons and Role: * Chio Riggs MD - Primary * Kandi Garcia MD - Resident - Assisting Preoperative diagnosis: renal mass Postoperative diagnosis: renal mass Procedure(s) (LRB): @LAPAROSCOPY, RADICAL NEPHRECTOMY (WRVU 25.06) (Right) Findings: Uncomplicated right radical hand-assisted laparoscopic nephrectomy Right adrenal spared 1 artery, 1 vein Ureter clipped Plan: Remove quigley tomorrow Fu labs Anesthesia: Anesthesia type not filed in the log. Estimated Blood Loss: 50cc Specimens removed during surgery: ID Type Source Tests Collected by Time Destination 1 : Tissue Kidney, Right SURGICAL PATHOLOGY Chio Riggs MD 02/23/2024 0920 Drains: 14Fr quigley catheter Surgical Closure: Primary Closure - skin incision is completely closed without any wires, edelmira, drains or other devices Disposition: awakened from anesthesia, extubated and taken to the recovery room in a stable condition, having suffered no apparent untoward event. Condition: doing well without problems (Please see the Surgical Encounter Summary for any Implant and Specimen details pertinent to this patient.) HPI/Surgical Indications: Liss Mosley is a 58 y.o. female with a history of TESSA, CKD, alcohol abuse, HTN, prior , gastric surgery now with 6cm right renal mass. She underwent a renal u/s as a part of a workup for rising Creatinine with the incidental findings of a 6-7 cm right renal mass. She presents today for RIGHT laparoscopic radical nephrectomy. Procedure Description: Patient was identified and greeted in the preoperative holding area. The patient was consented for the procedure and transferred to the OR and placed on the bed in a supine fashion. General anesthesia was then induced, IV antibiotics were infused, and SCD/sub cutaneous heparin was administered for DVT prophylaxis. After an adequate level of general anesthesia was obtained, his operative abdominalsight was was shaved a 14F Quigley catheter was inserted in the bladder with return of clear urine and 10cc sterile water was instilled in the balloon, and the patient was positioned in a lateral decubitus position ensuring that all bony prominences were appropriately padded. The patient was then prepped and draped in a standard fashion. A time out was performed involving all members of the OR team, confirming the patient's identity, planned procedure, and laterality. A 8cm RLQ chaudhry muscle splitting incision was made and the gelport was placed. 2 right upper and mid abdominal 12mm port sites were marked and using a hand in the gel port to protect the abdominal contents the 12 mm trocars were placed and the abdomen insufflated to 15mmHg without difficulty. The camera was inserted and there was no injury to intraabdominal contents. We turned our attention to the takedown of colon adhesions along the anterior abdominal wall using the harmonic scalpel. The hepatic flexure and ascending colon were then mobilized along the line of Toldt, reflecting the colon medially. The hepatorenal attachments were taken down with the harmonic. The duodenum was kocherized.The hilum was further cleaned off. The hilar structures were isolated. The lap vascular stapler wasthen used to take the left renal artery and vein x 1. The adrenal was released from the upper pole and spared. The lateral and superior attachments were dissected. The right ureter was clipped and ligated, then the remaninig lateral attachments were taken to free the kidney. Meticulous hemostasis was achieved, and confirmed with a desufflated abdomen. The airseal was then released and all the ports were removed under vision. The specimen was extracted through the hand port incision. The internal oblique and transversus abdominus muscle were closed with #0 Vicryl in running suture and the external oblique fascia was closed with a #0 Vicryl interrupted figure of 8 sutures.2.0 vicryl was used to close the 12mm port fascia. The skin incisions were closed with 4-0 monocryl suture. The patient was woken and brought to the PACU in stable condition. Patient tolerated the procedure well. Dr. Riggs was present for the entire procedure. Surgical Infection Prevention Bundle Used? No Associated attestation - Chio Riggs MD - 02/23/2024 10:56 AM EST Attestation: Case Date: 02/23/2024 I was present and I participated during the entire procedure (does not need to include opening and closing). CHIO RIGGS MD 02/23/2024 documented in this encounter Plan of Treatment Upcoming Encounters Date Type Department Care Team (Late st Contact Info) Description 04/13/2024 3:20 PM EST Office Visit Dermatology at [facility] [address] [place] [address] Felicitas Llanes MD [facility] [address] [place] [address] 04/26/2024 4:00 PM EST Office Visit [place] [id number] Denia iXao APRN [facility] [place] [address] documented as of this encounter Goals Goal Patient Goal Type Associated Problems Recent Progress Patient-Stated? Author movement Exercise No Arsh So Note: Try cardio chair exercises. Health Sergeant Missile Crewman will send links to videos. Self monitoring [...] to activate your muscles. Nutrition goals updated 3.13.[address] Note: Continue to abstain from alcohol, imagining [...] for more food at the 20 minute manolo self-awareness Lifestyle No Arsh So Note: Practice mindful eating, the pause (STOP, and urge surfing. Health Sergeant Missile Crewman will mail hand-outs. documented as of this encounter Procedures Procedure Name Priority Date/Time Associated Diagnosis Comments CBC (WITH DIFF) Timed 02/24/2024 3:41 AM EST BASIC METABOLIC PANEL Timed 02/24/2024 3:40 AM EST CBC (WITH DIFF) STAT 02/23/2024 10:59 AM EST BASIC METABOLIC PANEL Routine 02/23/2024 10:59 AM EST SURGICAL PATHOLOGY Routine 02/23/2024 9: 20 AM EST ABORH RECHECK ALEX 02/23/2024 8:34 AM EST Lap, Radical Nephrectomy ([id number]) Yes 02/23/2024 7:29 AM EST Adrenal Mass TYPE AND SCREEN ([facility]ER[facility] STAT 02/23/2024 6:49 AM EST documented in this encounter Results * (ABNORMAL) CBC (with Diff) (02/24/2024 3:41 AM EST) White Blood Cell 8.14 4.00 - 9.50 x10(3)/mc L 02/24/2024 4:03 AM [facility] Red Blood Cell 3.62(L) 4.00 - 5.21 x10(6)/mc L 02/24/2024 4:03 AM [facility] Hemoglobin 11.3(L) 11.7 - 15.5 g/dL 02/24/2024 4:03 AM [facility] Hematocrit 34.2(L) 35.7 - 45.8 % 02/24/2024 4:03 AM [facility] Mean Cell Volume 94.5(H) 82.6 - 94.4 fL 02/24/2024 4:03 AM [facility] Mean Cell Hemoglobin 31.2 27.1 - 32.0 pg 02/24/2024 4:03 AM [facility] Mean Cell Hemoglobin Concentration 33.0 31.7 - 35.0 g/dL 02/24/2024 4:03 AM [facility] Platelet 210 145 - 357 x10(3)/mc L 02/24/2024 4:03 AM [facility] Mean Platelet Volume 9.4 7.6 - 12.9 fL 02/24/2024 4:03 AM [facility] RDW Standard Deviation 47.8(H) 37.0 - 46.0 fL 02/24/2024 4:03 AM [facility] RDW coefficient of variation 13.6 11.5 - 14.1 % 02/24/2024 4:03 AM [facility] NRBC% auto 0.0 % 02/24/2024 4:03 AM [facility] NRBC Absolute <0.01 <0.01 x10(3)/mc L 02/24/2024 4:03 AM [facility] Neutrophil % 55.6 % 02/24/2024 4:03 AM [facility] Neutrophil Absolute (ANC) - Automated 4.52 1.70 - 6.10 x10(3)/mc L 02/24/2024 4:03 AM [facility] Lymph % 34.0 % 02/24/2024 4:03 AM EST [facility] Lymph Absolute 2.77 0.90 - 3.20 x10(3)/mc L 02/24/2024 4:03 AM [facility] Monocyte % 9.1 % 02/24/2024 4:03 AM [facility] Monocyte Absolute 0.74 0.30 - 0.90 x10(3)/mc L 02/24/2024 4:03 AM EST [facility] Eos % 0.9 % 02/24/2024 4:03 AM [facility] Eos Absolute 0.07 0.00 - 0.40 x10(3)/mc L 02/24/2024 4:03 AM [facility] Basophil % 0.2 % 02/24/2024 4:03 AM [facility] Baso Absolute <0.04 0.00 - 0.10 x10(3)/mc L 02/24/2024 4:03 AM [facility] Immature Gran % 0.2 % 4:03 AM [facility] Immature Gran Absolute <0.04 0.00 - 0.04 x10(3)/mc L 02/24/2024 4:03 AM [facility] Blood VENOUS BLOOD SPECIMEN / Unknown Venipuncture / Unknown 02/24/2024 3:41 AM EST 02/24/2024 3:55 AM EST Chio Riggs MD HEMATOLOGY ORDERAB LES [facility] [place] [address] * (ABNORMAL) Basic Metabolic Panel (02/24/2024 3:40 AM EST) Glucose 92 65 - 199 mg/dL 02/24/2024 4:24 AM EST [facility] Comment:Glucose Concentratio n >=200 mg/dL plus symptoms is consistent with Diabetes Mellitus. Blood Urea Nitrogen 22(H) 8 - 18 mg/dL 02/24/2024 4:24 AM [facility] Creatinine 1.32(H) 0.70 - 1.20 mg/dL 02/24/2024 4:24 AM [facility] Sodium 132(L) 135 - 145 mMol/L 02/24/2024 4:24 AM [facility] Potassium 4.2 3.5 - 5.0 mMol/L 02/24/2024 4:24 AM [facility] Chloride 98 98 - 107 mMol/L 02/24/2024 4:24 AM [facility] Carbon Dioxide 23 22 - 31 mMol/L 02/24/2024 4:24 AM [facility] Anion Gap 11 5 - 15 mMol/L 02/24/2024 4:24 AM [facility] Calcium 8.4(L) 8.5 - 10.5 mg/dL 02/24/2024 4:24 AM [facility] Est Glomerular Filtration Rate - Female 46 mL/min/1. 73 m?? 02/24/2024 4:24 AM [facility] Comment: This patient's estimated GFR was calculated using the 2020 CKD-EPI equation. The estimated GFR can vary from the measured GFR by up to 30% in the absence of rapidly changing kidney function. Assessment of the estimated GFR is not appropriate when creatinine concentrations are rapidly changing. For clinical situations in which a more precise estimate of GFR is necessary, consider alternative methods of GFR estimation such as a 24-hour urine creatinine clearance. Assignment of CKD stage 1 - 5 for patients with an eGFR near the transition point between stages may be based on clinical assessment of muscle mass and symptoms in addition to eGFR. Link: eGFR Calculator [employer] Blood VENOUS BLOOD SPECIMEN / Unknown Venipuncture / Unknown 02/24/2024 3:40 AM EST 02/24/2024 3:55 AM EST Chio Riggs MD CHEMISTRY ORDERABL ES [facility] [place] [address] * (ABNORMAL) Basic Metabolic Panel (02/23/2024 10:59 AM EST) Glucose 126 65 - 199 mg/dL 02/23/2024 11:46 AM [facility] Comment:Glucose Concentratio n >=200 mg/dL plus symptoms is consistent with Diabetes Mellitus. Blood Urea Nitrogen 23(H) 8 - 18 mg/dL 02/23/2024 11:46 AM [facility] Creatinine 1.08 0.70 - 1.20 mg/dL 02/23/2024 11:46 AM [facility] Sodium 135 135 - 145 mMol/L 02/23/2024 11:46 AM [facility] Potassium 4.6 3.5 - 5.0 mMol/L 02/23/2024 11:46 AM [facility] Chloride 101 98 - 107 mMol/L 02/23/2024 11:46 AM [facility] Carbon Dioxide 22 22 - 31 mMol/L 02/23/2024 11:46 AM [facility] Anion Gap 12 5 - 15 mMol/L 02/23/2024 11:46 AM [facility] Calcium 8.9 8.5 - 10.5 mg/dL 02/23/2024 11:46 AM [facility] Est Glomerular Filtration Rate - Female 59 mL/min/1. 73 m?? 02/23/2024 11:46 AM [facility] Comment: This patient's estimated GFR was calculated using the 2020 CKD-EPI equation. The estimated GFR can vary from the measured GFR by up to 30% in the absence of rapidly changing kidney function. Assessment of the estimated GFR is not appropriate when creatinine concentrations are rapidly changing. For clinical situations in which a more precise estimate of GFR is necessary, consider alternative methods of GFR estimation such as a 24-hour urine creatinine clearance. Assignment of CKD stage 1 - 5 for patients with an eGFR near the transition point between stages may be based on clinical assessment of muscle mass and symptoms in addition to eGFR. Link: eGFR Calculator [employer] Blood VENOUS BLOOD SPECIMEN / Unknown Venipuncture / Unknown 02/23/2024 10:59 AM EST 02/23/2024 11:14 AM EST Chio Riggs MD CHEMISTRY ORDERABL ES [facility] [place] [address] * (ABNORMAL) CBC (with Diff) (02/23/2024 10:59 AM EST) White Blood Cell 9.55(H) 4.00 - 9.50 x10(3)/mc L 02/23/2024 11:30 AM [facility] Red Blood Cell 3.90(L) 4.00 - 5.21 x10(6)/mc L 02/23/2024 11:30 AM [facility] Hemoglobin 12.2 11.7 - 15.5 g/dL 02/23/2024 11:30 AM [facility] Hematocrit 37.4 35.7 - 45.8 % 02/23/2024 11:30 AM [facility] Mean Cell Volume 95.9(H) 82.6 - 94.4 fL 02/23/2024 11:30 AM [facility] Mean Cell Hemoglobin 31.3 27.1 - 32.0 pg 02/23/2024 11:30 AM [facility] Mean Cell Hemoglobin Concentration 32.6 31.7 - 35.0 g/dL 02/23/2024 11:30 AM [facility] Platelet 231 145 - 357 x10(3)/mc L 02/23/2024 11:30 AM [facility] Mean Platelet Volume 9.5 7.6 - 12.9 fL 02/23/2024 11:30 AM [facility] RDW Standard Deviation 48.0(H) 37.0 - 46.0 fL 02/23/2024 11:30 AM [facility] RDW coefficient of variation 13.6 11.5 - 14.1 % 02/23/2024 11:30 AM [facility] NRBC% auto 0.0 % 02/23/2024 11:30 AM [facility] NRBC Absolute <0.01 <0.01 x10(3)/mc L 02/23/2024 11:30 AM [facility] Neutrophil % 82.1 % 02/23/2024 11:30 AM [facility] Neutrophil Absolute (ANC) - Automated 7.83(H) 1.70 - 6.10 x10(3)/mc L 02/23/2024 11:30 AM [facility] Lymph % 14.0 % 02/23/2024 11:30 AM [facility] Lymph Absolute 1.34 0.90 - 3.20 x10(3)/mc L 02/23/2024 11:30 AM [facility] Monocyte % 3.0 % 02/23/2024 11:30 AM [facility] Monocyte Absolute 0.29(L) 0.30 - 0.90 x10(3)/mc L 02/23/2024 11:30 AM [facility] Eos % 0.3 % 02/23/2024 11:30 AM [facility] Eos Absolute <0.04 0.00 - 0.40 x10(3)/mc L 02/23/2024 11:30 AM [facility] Basophil % 0.3 % 02/23/2024 11:30 AM [facility] Baso Absolute <0.04 0.00 - 0.10 x10(3)/mc L 02/23/2024 11:30 AM [facility] Immature Gran % 0.3 % 11:30 AM [facility] Immature Gran Absolute <0.04 0.00 - 0.04 x10(3)/mc L 02/23/2024 11:30 AM [facility] Blood VENOUS BLOOD SPECIMEN / Unknown Venipuncture / Unknown 02/23/2024 10:59 AM EST 02/23/2024 11:14 AM EST Chio Riggs MD HEMATOLOGY ORDERAB LES Performing Organization Address [facility]/State/ZIP Co de Phone Number [facility] [place] [address] * Surgical Pathology (02/23/2024 9:20 AM EST) Case Report Surgical Pathology Report ? Case: [id number] ? Authorizing Provider: ??Chio Riggs MD ?Collected: ? 02/23/2024 0920 ? Ordering Location: ? Main Operating Room Theresa ?? Received: ?02/23/2024 0932 ? [facility] ? Hospital ? Pathologist: ? Jhonatan Hernandez MD ? Specimen: ?Kidney, Right ? 03/01/2024 5:28 PM [facility] Final Diagnosis A. 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 - Background renal parenchyma with mild nonspecific chronic changes including focal tubular atrophy and focal global glomerulosclerosis. 03/01/2024 5:28 PM [facility] Additional Studies Task ID IHC/Special Stains Result A6-2 CK7 Rare single cell staining only 03/01/2024 5:28 PM [facility] Disclaimer(s) Formalin-fixed, paraffin-embedded tissue sections are studied using the polymer technique with appropriate positive and negative controls. These IHC studies provide the pathologist with adjunctive diagnostic information. Antibody specificity has been verified by testing antibodies on a series of in-house tissues with known immunohistochemical performance characteristics. The clinical interpretation of any antibody positive staining or its absence is evaluated within the context of clinical presentation, morphology, histopathological criteria and other diagnostic tests. 03/01/2024 5:28 PM [facility] Clinical Information A. Kidney, Right, *Other - as specified in Clinical Information Right Kidney 03/01/2024 5:28 PM [facility] Gross Description A. Kidney, Right, . A - Labeled/Fixative: Kidney, right, fresh. Quantity/Size/Weight: Single, 14.0 x 11.0 x 6.0 cm, 258 g. SPECIMEN DESCRIPTION Resection Specimen: Intact, right, ureter is received clipped. LESION Size: 4.5 x 4.1 x 3.6 cm. Location: Middle. Color: Yellow-nash. Consistency: Fleshy, soft. Contour: Bulging. Focality: Unifocal. DIRECT EXTENSION Tumor limited to kidney. . . Renal pelvis and mucosa: Not involved. . MARGINS . Renal artery: 2.6 cm. Ureter: 4.2 cm. Soft tissue: 0.5 cm. Gerota? s fascia: 0.4 cm. KIDNEY Size: 10.3 x 6.5 x 4.6 cm. Parenchyma: The corticomedullary junction is thinned and focally distorted by the bulging tumor. OTHER Inking: Perinephric fat is inked black. Sections/Processing: Thread Drawer sections in 12 cassettes as follows: A1: Vascular margins (en face) A2: Ureter margin (en face) A3-A4: Tumor to renal capsule and perinephric fat A5: Tumor to Gerota's fascia A6-A7: Tumor to renal parenchyma A8-A9: Tumor to renal sinus fat A10: Tumor to hilar soft tissue and renal pelvis A11: Uninvolved renal pelvis A12: Uninvolved renal parenchyma 03/01/2024 5:28 PM EST [facility] Result Note Routine 03/01/2024 5:28 PM EST [facility] Tissue RIGHT KIDNEY STRUCTURE / Unknown 02/23/2024 9:20 AM EST 02/23/2024 9:32 AM EST Comment:Right Kidney Chio Riggs MD PATHOLOGY/CYTOLOGY ORDERABLES [facility] [place] [address] * ABORH RECHECK (02/23/2024 8:34 AM EST) ABORH Recheck O NEGATIVE 02/23/2024 9:21 AM EST [facility] Blood VENOUS BLOOD SPECIMEN / Unknown Venipuncture / Unknown 02/23/2024 8:34 AM EST 02/23/2024 8:48 AM EST Chio Riggs MD BLOOD BANK LAB ORD ERABLES [facility] [place] [address] * Type and screen [place] (02/23/2024 6:49 AM EST) ABORH Type O NEGATIVE 02/23/2024 7:44 AM EST [facility] PATIENT HISTORY Not Found 02/23/2024 7:44 AM EST [facility] Expires at 2359 on: 02/26/2024 02/23/2024 7:44 AM EST [facility] ANTIBODY SCREEN AUTOMATED Negative 02/23/2024 7:44 AM EST [facility] T&S only valid at [facility] 02/23/2024 7:44 AM EST [facility] Blood VENOUS BLOOD SPECIMEN / Unknown Venipuncture / Unknown 02/23/2024 6:49 AM EST 02/23/2024 6:53 AM EST Narrative [facility] - 02/23/2024 7:44 AM EST This Type and Screen result is only valid at the [facility] Chio Riggs MD BLOOD BANK LAB ORD ERABLES [facility] [place] [address] documented in this encounter Visit Diagnoses Diagnosis Renal mass- Primary Unspecified disorder of kidney and ureter documented in this encounter Admitting Diagnoses Diagnosis Renal mass Unspecified disorder of kidney and ureter documented in this encounter Administered Medications Inactive Administered Medications - up to 3 most recent administrations Medication Order MAR Action Action Date Dose Rate Site acetaminophen (Tylenol) tablet 975 mg 975 mg, Oral, ONCE, 1 dose, On Fri02/23/24 at 0630, Administer with a SIP of water only. Maximum dose of acetaminophen is 4,000 mg from all sources in 24 hours., Day of Surgery (Day of Procedure), Routine Given 02/23/2024 6:28 AM EST 975 mg acetaminophen (Tylenol) tablet 975 mg 975 mg, Oral, EVERY 6 HOURS SCHEDULED, First dose on Fri02/23/24 at 1200, Until Discontinued, Maximum dose of acetaminophen is 4000 mg from all sources in 24 hours. When ordered for pain, acetaminophen should be given even when other ordered pain medications are indicated. , Routine Given 02/24/2024 11:59 AM EST 975 mg Given 02/24/2024 6:45 AM EST 975 mg Given 02/24/2024 12:44 AM EST 975 mg docusate sodium (Colace) capsule 100 mg 100 mg, Oral, 2 TIMES DAILY, First dose on Fri02/23/24 at 2100, Until Discontinued, Routine Given 02/23/2024 9:09 PM EST 100 mg haloperidoL lactate (Haldol) (5 mg/mL) injection 0.5 mg 0.5 mg, Intravenous, EVERY 30 MIN PRN, 2 doses, Starting on Fri02/23/24 at 0949, Until Fri02/23/24 at 1206, Agitation, nausea/vomiting, If multiple antiemetics ordered, use ondansetron first and if ineffective use prochlorperazine or haloperidoL second, PACU Recovery, Routine Given 02/23/2024 11:21 AM EST 0.5 mg heparin (porcine) (5,000 units/1 mL) subcutaneous injection 5,000 Units 5,000 Units, Subcutaneous, AP[employer] ATTENDANT TO O.R., 1 dose, On Fri02/23/24 at 0630, Day of Surgery (Day of Procedure), Routine Given 02/23/2024 7:08 AM EST 5,000 Units heparin (porcine) (5,000 units/1 mL) subcutaneous injection 5,000 Units 5,000 Units, Subcutaneous, EVERY 8 HOURS SCHEDULED, First dose on Fri02/23/24 at 2200, Until Discontinued, Routine Given 02/24/2024 2:06 PM EST 5,000 Units Given 02/24/2024 6:45 AM EST 5,000 Units Given 02/23/2024 9:09 PM EST 5,000 Units HYDROmorphone (Dilaudid) (0.2 mg/1 mL) injection syringe 0.4 mg 0.4 mg, Intravenous, EVERY 10 MIN PRN, Starting on Fri02/23/24 at 0949, Until Fri02/23/24 at 1206, Pain, For Mild to Moderate Pain (1-5 out of 10), Hold for respiratory rate less than 10 per minute. Maximum dose 3 mg over one hour including administrations in the OR. If multiple pain medications are ordered, start with HYDROmorphone and use fentaNYL for breakthrough pain., PACU Recovery, Routine Given 02/23/2024 11:06 AM EST 0.4 mg lactated ringers infusion 1,000 mL, at 100 mL/hr, Intravenous, CONTINUOUS, Starting on Fri02/23/24 at 1115, Until Fri02/23/24 at 2114, Recovery (Recovery-Hospital Unit) [facility] 02/23/2024 11:19 AM EST 1,000 mLs 100 mL/hr levothyroxine (Synthroid) tablet 150 mcg 150 mcg, Oral, EVERY MORNING, First dose on Fri02/24/24 at 0600, Until Discontinued, Routine Given 02/24/2024 6:45 AM EST 150 mcg lisinopriL (Zestril) tablet 10 mg 10 mg, Oral, DAILY, First dose on Fri02/24/24 at 0900, Until Discontinued, Routine melatonin tablet 6 mg 6 mg, Oral, NIGHTLY, First dose on Fri02/23/24 at 2130, Until Discontinued, Routine Given 02/23/2024 9:48 PM EST 6 mg montelukast (Singulair) chewable tablet 10 mg 10 mg, Oral, NIGHTLY, First dose on Fri02/23/24 at 2200, Until Discontinued, Routine Given 02/23/2024 9:48 PM EST 10 mg ondansetron (pf) (Zofran) (2 mg/mL) injection 4 mg 4 mg, Intravenous, EVERY 8 HOURS PRN, Starting on Fri02/23/24 at 1945, Until Fri02/24/24 at 1733, Nausea, May repeat times one in 30 minutes if ineffective. If multiple antiemetics are ordered, use ondansetron first., Recovery (Recovery-Hospital Unit) ondansetron (pf) (Zofran) (2 mg/mL) injection 4 mg 4 mg, Intravenous, EVERY 30 MIN PRN, 2 doses, Starting on Fri02/23/24 at 0949, Until Fri02/23/24 at 1206, Nausea, Maximum total dose of 8 mg (including OR administration). If multiple antiemetics ordered, use ondansetron first and if ineffective use prochlorperazine or haloperidoL second, PACU Recovery Given 02/23/2024 11:10 AM EST 4 mg ondansetron (Zofran) tablet 4 mg 4 mg, Oral, EVERY 8 HOURS PRN, Starting on Fri02/23/24 at 1945, Until Fri02/24/24 at 1733, Nausea, Vomiting, If multiple antiemetics are ordered, use ondansetron first. PO Preferred. If patient unable to take PO, may give IV if ordered. May repeat times one in 45 minutes if ineffective., Recovery (Recovery-Hospital Unit), Routine oxyCODONE (Roxicodone) tablet 10 mg 10 mg, Oral, EVERY 4 HOURS PRN, Starting on Fri02/23/24 at 1052, Until Fri02/24/24 at 1733, Pain, severe pain (7-10), If multiple routes of administration ordered, oral route first line., Routine Given 02/23/2024 11:11 AM EST 10 mg oxyCODONE (Roxicodone) tablet 5 mg 5 mg, Oral, EVERY 4 HOURS PRN, Starting on Fri02/23/24 at 1052, Until Fri02/24/24 at 1733, Pain, moderate pain (4-6), For adults, may give in place of other agent(s) ordered for pain (7-10) at patient request. If multiple routes of administration ordered, oral route first line., Routine polyethylene glycoL (Miralax) packet 17 g 17 g, Oral, DAILY, First dose on Fri02/24/24 at 0900, Until Discontinued, Routine Given 02/24/2024 9:52 AM EST 17 g senna-docusate (Pericolace) 8.6-50 mg per tablet 2 tablet 2 tablet, Oral, 2 TIMES DAILY, First dose on Fri02/24/24 at 0900, Until Discontinued, Routine Given 02/24/2024 9:54 AM EST 2 tablets sertraline (Zoloft) tablet 50 mg 50 mg, Oral, DAILY, First dose on Fri02/23/24 at 2015, Until Discontinued, Routine Given 02/24/2024 9:53 AM EST 50 mg sodium chloride 0.9 % (flush) (BD PosiFlush Normal Saline 0.9) flush 5 mL 5 mL, Intravenous, 2 TIMES DAILY, First dose on Fri02/23/24 at 2100, Until Discontinued, Recovery (Recovery-Hospital Unit), Routine Given 02/24/2024 9:00 AM EST 5 mLs Given 02/23/2024 9:09 PM EST 5 mLs documented in this encounter Active and Recently Administered Medications Times are shown in EST. Scheduled Medication Order 02/22/2024 02/23/2024 02/24/2024 acetaminophen (Tylenol) tablet 975 mg (COMPLETED) 975 mg, Oral, ONCE, 1 dose, On Fri02/23/24 at 0630, Administer with a SIP of water only. Maximum dose of acetaminophen is 4,000 mg from all sources in 24 hours., Day of Surgery (Day of Procedure), Routine 0628 (Given - Provider: Letty Padgett, KONG) acetaminophen (Tylenol) tablet 975 mg 975 mg, Oral, EVERY 6 HOURS SCHEDULED, First dose on Fri02/23/24 at 1200, Until Discontinued, Maximum dose of acetaminophen is 4000 mg from all sources in 24 hours. When ordered for pain, acetaminophen should be given even when other ordered pain medications are indicated. , Routine 1111 (Given - Provider: Alanis Webster RN)1800 (Given - Provider: Avery Serrano Jr., RN) 0044 (Given - Provider: Tanya Olivier RN)0645 (Given - Provider: Tanya Olivier RN)1159 (Given - Provider: Nita Rockwell, KONG) ceFAZolin (Ancef) 2 g vial attach to sodium chloride 0.9% 100 mL Mini-Bag Plus (COMPLETED) 2 g, Intravenous, [employer] ATTENDANT TO O.R., 1 dose, On Fri02/23/24 at 0630, Administer over 30 Minutes, Day of Surgery (Day of Procedure), Indication for (Active or Suspected): Prophylaxis 0800 (New Bag - Provider: Manolo Ng CRNA) docusate sodium (Colace) capsule 100 mg 100 mg, Oral, 2 TIMES DAILY, First dose on Fri02/23/24 at 2100, Until Discontinued, Routine 210 (Given - Provider: Rosa Graves RN) 0954 (Not Given - Provider: Nita Rockwell RN - Reason: Patient/family refused) heparin (porcine) (5,000 units/1 mL) subcutaneous injection 5,000 Units (COMPLETED) 5,000 Units, Subcutaneous, AP[employer] ATTENDANT TO O.R., 1 dose, On Fri02/23/24 at 0630, Day of Surgery (Day of Procedure), Routine 0708 (Given - Provider: Letty Padgett RN) heparin (porcine) (5,000 units/1 mL) subcutaneous injection 5,000 Units 5,000 Units, Subcutaneous, EVERY 8 HOURS SCHEDULED, First dose on Fri02/23/24 at 2200, Until Discontinued, Routine 2108 (Given - Provider: Rosa Graves RN) 0645 (Given - Provider: Tanya Olivier RN)1406 (Given - Provider: Nita Rockwell RN) levothyroxine (Synthroid) tablet 150 mcg 150 mcg, Oral, EVERY MORNING, First dose on Fri02/24/24 at 0600, Until Discontinued, Routine 06 (Given - Provid er: Tanya Olivier RN) lisinopriL (Zestril) tablet 10 mg 10 mg, Oral, DAILY, First dose on Fri02/24/24 at 0900, Until Discontinued, Routine 951 (Not Given - Provider: Nita Rockwell RN - Reason: Patient/family refused) melatonin tablet 6 mg 6 mg, Oral, NIGHTLY, First dose on Fri02/23/24 at 2130, Until Discontinued, Routine 2147 (Given - Provider: Rosa Graves RN) montelukast (Singulair) chewable tablet 10 mg 10 mg, Oral, NIGHTLY, First dose on Fri02/23/24 at 2200, Until Discontinued, Routine 2147 (Given - Provider: Rosa Graves RN) polyethylene glycoL (Miralax) packet 17 g 17 g, Oral, DAILY, First dose on Fri02/24/24 at 0900, Until Discontinued, Routine 951 (Given - Provid er: Nita Rockwell RN) senna-docusate (Pericolace) 8.6-50 mg per tablet 2 tablet 2 tablet, Oral, 2 TIMES DAILY, First dose on Fri02/24/24 at 0900, Until Discontinued, Routine 953 (Given - Provid er: Nita Rockwell RN) sertraline (Zoloft) tablet 50 mg 50 mg, Oral, DAILY, First dose on Fri02/23/24 at 2015, Until Discontinued, Routine 2057 (Not Given - Provider: Rosa Graves RN - Reason: Patient/family refused - Comment: Pt states she takes it in the am only) 0953 (Given - Provider: Nita Rockwell, KONG) sodium chloride 0.9 % (flush) (BD PosiFlush Normal Saline 0.9) flush 5 mL 5 mL, Intravenous, 2 TIMES DAILY, First dose on Fri02/23/24 at 2100, Until Discontinued, Recovery (Recovery-Hospital Unit), Routine 2109 (Given - Provider: Rosa Graves, KONG) 0900 (Given - Provider: Nita Rockwell RN) Continuous Medication Order 02/22/2024 02/23/2024 02/24/2024 lactated ringers infusion (CANCELED) 1,000 mL, at 100 mL/hr, Intravenous, CONTINUOUS, Starting on Fri02/23/24 at 0630, Until Fri02/23/24 at 1206, Day of Surgery (Day of Procedure) 0728 (New Bag - Provider: Lm Ng CRNA)1019 (Stopped - Provider: Manolo Ng CRNA) lactated ringers infusion () 1,000 mL, at 100 mL/hr, Intravenous, CONTINUOUS, Starting on Fri02/23/24 at 1115, Until Fri02/23/24 at 2114, Recovery (Recovery-Hospital Unit) 1119 (New Bag - Provider: Alanis Webster RN)2148 (Stopped - Provider: Rosa Graves RN) PRN Medication Order 02/22/2024 02/23/2024 02/24/2024 bisacodyL (Dulcolax) suppository 10 mg 10 mg, Rectal, DAILY PRN, Starting on Fri02/23/24 at 1945, Until Fri02/24/24 at 1733, Constipation, Administer if needed per patient's routine or if no bowel movement within 48 hours to achieve: (1) One bowel movement at least every 48 hours, AND (2) Without straining. - If multiple PRN bowel medications ordered, start with magnesium hydroxide, then bisacodyL. - Multiple medications may be given concomitantly for constipation., Routine BUPivacaine (pf) (Marcaine) (2.5 mg/mL) 0.25% injection (CANCELED) PRN, Starting on Fri02/23/24 at 1014, Until Fri02/23/24 at 1311, Intra-Operative (Intra-Procedure), Routine 1014 (Given - Provider: Arlene Riggs MD) haloperidoL lactate (Haldol) (5 mg/mL) injection 0.5 mg (CANCELED) 0.5 mg, Intravenous, EVERY 30 MIN PRN, 2 doses, Starting on Fri02/23/24 at 0949, Until Fri02/23/24 at 1206, Agitation, nausea/vomiting, If multiple antiemetics ordered, use ondansetron first and if ineffective use prochlorperazine or haloperidoL second, PACU Recovery, Routine 1121 (Given - Provider: Alanis Webster, KONG) HYDROmorphone (Dilaudid) (0.2 mg/1 mL) injection syringe 0.4 mg (CANCELED)(Linked Group 1) 0.4 mg, Intravenous, EVERY 10 MIN PRN, Starting on Fri02/23/24 at 0949, Until Fri02/23/24 at 1206, Pain, For Mild to Moderate Pain (1-5 out of 10), Hold for respiratory rate less than 10 per minute. Maximum dose 3 mg over one hour including administrations in the OR. If multiple pain medications are ordered, start with HYDROmorphone and use fentaNYL for breakthrough pain., PACU Recovery, Routine 1106 (Given - Provider: Alanis Webster, KONG) lidocaine (Xylocaine) 1% (10 mg/mL) injection 3 mg 3 mg (0.3 mL), Subcutaneous, ONCE PRN, 1 dose, Starting on Fri02/23/24 at 1945, Until Fri02/24/24 at 1733, for discomfort with PIV insertion, Recovery (Recovery-Hospital Unit), Routine naloxone (Narcan) (0.4 mg/mL) injection 0.2 mg 0.2 mg, Intravenous, EVERY 1 MIN PRN, 10 doses, Starting on Fri02/23/24 at 1945, Until Fri02/24/24 at 1733, Opioid Reversal, If respiratory rate less than 6 OR the patient is unable to arouse OR SpO2 is declining, Give for respiratory rate of less than or equal to 6 and patient is heavily sedated or unarousable. May repeat every 60 seconds to increase respiratory rate. DO NOT exceed 2 mg total dose., Recovery (Recovery-Hospital Unit), Routine ondansetron (pf) (Zofran) (2 mg/mL) injection 4 mg(Linked Group 2) 4 mg, Intravenous, EVERY 8 HOURS PRN, Starting on Fri02/23/24 at 1945, Until Fri02/24/24 at 1733, Nausea, May repeat times one in 30 minutes if ineffective. If multiple antiemetics are ordered, use ondansetron first., Recovery (Recovery-Hospital Unit) ondansetron (pf) (Zofran) (2 mg/mL) injection 4 mg (CANCELED) 4 mg, Intravenous, EVERY 30 MIN PRN, 2 doses, Starting on Fri02/23/24 at 0949, Until Fri02/23/24 at 1206, Nausea, Maximum total dose of 8 mg (including OR administration). If multiple antiemetics ordered, use ondansetron first and if ineffective use prochlorperazine or haloperidoL second, PACU Recovery 1110 (Given - Provider: Alanis Webster RN) ondansetron (Zofran) tablet 4 mg(Linked Group 2) 4 mg, Oral, EVERY 8 HOURS PRN, Starting on Fri02/23/24 at 1945, Until Fri02/24/24 at 1733, Nausea, Vomiting, If multiple antiemetics are ordered, use ondansetron first. PO Preferred. If patient unable to take PO, may give IV if ordered. May repeat times one in 45 minutes if ineffective., Recovery (Recovery-Hospital Unit), Routine oxyCODONE (Roxicodone) tablet 10 mg(Linked Group 3) 10 mg, Oral, EVERY 4 HOURS PRN, Starting on Fri02/23/24 at 1052, Until Fri02/24/24 at 1733, Pain, severe pain (7-10), If multiple routes of administration ordered, oral route first line., Routine 1111 (Given - Provider: Alanis Webster RN) oxyCODONE (Roxicodone) tablet 5 mg(Linked Group 3) 5 mg, Oral, EVERY 4 HOURS PRN, Starting on Fri02/23/24 at 1052, Until Fri02/24/24 at 1733, Pain, moderate pain (4-6), For adults, may give in place of other agent(s) ordered for pain (7-10) at patient request. If multiple routes of administration ordered, oral route first line., Routine 1111 (See Alternative - Provider: Alanis Webster RN) oxyCODONE (Roxicodone) tablet 5 mg 5 mg, Oral, EVERY 4 HOURS PRN, Starting on Fri02/23/24 at 1052, Until Fri02/24/24 at 1733, Pain, Breakthrough pain rescue dose, For moderate or severe pain (4-10) unrelieved at least 60 minutes after initial PRN dose was administered Max 3 doses/24 hours. If pain still unrelieved after 3rd rescue dose within 24 hours, contact provider. If multiple routes of administration ordered, oral route first line., Routine sodium chloride 0.9 % (flush) (BD PosiFlush Normal Saline 0.9) flush 5-20 mL 5-20 mL, Intravenous, EVERY 1 MIN PRN, Starting on Fri02/23/24 at 1945, Until Fri02/24/24 at 1733, flush, Flush pertains to all indwelling lines. Flush per protocol found in the job aid using the link provided on this medication record., Recovery (Recovery-Hospital Unit), Routine Linked Groups Order Group 1: HYDROmorphone (Dilaudid) (0.2 mg/1 mL) injection syringe 0.4 mg (CANCELED)Jump to med 0.4 mg, Intravenous, EVERY 10 MIN PRN, Starting on Fri02/23/24 at 0949, Until Fri02/23/24 at 1206, Pain, For Mild to Moderate Pain (1-5 out of 10), Hold for respiratory rate less than 10 per minute. Maximum dose 3 mg over one hour including administrations in the OR. If multiple pain medications are ordered, start with HYDROmorphone and use fentaNYL for breakthrough pain., PACU Recovery, Routine Or HYDROmorphone (Dilaudid) (0.2 mg/1 mL) injection syringe 0.6 mg (CANCELED) 0.6 mg, Intravenous, EVERY 10 MIN PRN, Starting on Fri02/23/24 at 0949, Until Fri02/23/24 at 1206, Pain, For Moderate to Severe Pain (6-10 out of 10), Hold for respiratory rate less than 10 per minute. Maximum dose 4 mg over one hour including administrations in the OR. If multiple pain medications are ordered, start with HYDROmorphone and use fentaNYL for breakthrough pain., PACU Recovery, Routine Group 2: ondansetron (Zofran) tablet 4 mgJump to med 4 mg, Oral, EVERY 8 HOURS PRN, Starting on Fri02/23/24 at 1945, Until Fri02/24/24 at 1733, Nausea, Vomiting, If multiple antiemetics are ordered, use ondansetron first. PO Preferred. If patient unable to take PO, may give IV if ordered. May repeat times one in 45 minutes if ineffective., Recovery (Recovery-Hospital Unit), Routine Or ondansetron (pf) (Zofran) (2 mg/mL) injection 4 mgJump to med 4 mg, Intravenous, EVERY 8 HOURS PRN, Starting on Fri02/23/24 at 1945, Until Fri02/24/24 at 1733, Nausea, May repeat times one in 30 minutes if ineffective. If multiple antiemetics are ordered, use ondansetron first., Recovery (Recovery-Hospital Unit) Group 3: oxyCODONE (Roxicodone) tablet 5 mgJump to med 5 mg, Oral, EVERY 4 HOURS PRN, Starting on Fri02/23/24 at 1052, Until Fri02/24/24 at 1733, Pain, moderate pain (4-6), For adults, may give in place of other agent(s) ordered for pain (7-10) at patient request. If multiple routes of administration ordered, oral route first line., Routine Or oxyCODONE (Roxicodone) tablet 10 mgJump to med 10 mg, Oral, EVERY 4 HOURS PRN, Starting on Fri02/23/24 at 1052, Until Fri02/24/24 at 1733, Pain, severe pain (7-10), If multiple routes of administration ordered, oral route first line., Routine documented in this encounter Care Teams Archivist Political History Relationship Specialty Start Date End Date Barbara, Susan Mobley APRN [address] [facility] [address] [place] [address] PCP - General Internal Medicine 09/15/23 documented as of this encounter
--- OUTSIDE RECORDS SUMMARY | 2024-03-20 11:50 | XMS_ITS | Clinical Summary ---
Author Organization Formerly [facility] Address [facility] [place] [address] Care Team Providers Care Double End Trimmer Name Role Phone Susan Jimenez APRN Primary Care Provider [phone]- [phone] Allergies Active Allergy Reactions Criticality Noted Date Comments Adhesive Rash Low 12/14/2020 Other reaction(s): SKIN RASH Adhesive Tape High CIS - Localized Reaction Citalopram Other (See Comments) High 03/12/2019 Other reaction(s): FATIGUE Ketorolac Other (See Comments) 12/20/2021 Mold Rash 04/13/2019 Medications Medication Sig Dispensed Refills Start Date End Date Status sertraline (Zoloft) 50 mg Tablet Take 50 mg by mouth daily. 11/04/2013 Active sulfacetamide (KLARON) 10 % SuspensionIndication s:Rosacea Apply topically to face 1-2 times daily for rosacea 118 mL 3 06/12/2017 Active montelukast (Singulair) 10 mg Tablet Take 10 mg by mouth nightly. Active levothyroxine (Synthroid) 150 mcg Tablet Take 150 mcg by mouth daily. Active levocetirizine (XYZAL) 5 mg Tablet Take 1 tablet by mouth daily. 90 tablet 3 09/22/2019 Active lactobacillus rhamnosus, GG, (CULTURELLE) 10 billion cell Capsule Take 1 capsule by mouth daily. Active Biotin 1 mg Tablet Take by mouth. Ac tive Minoxidil 5 % Foam 05/12/2020 Active lisinopriL (Zestril) 10 mg Tablet Take 10 mg by mouth daily. 07/21/2021 Active acetaminophen (Tylenol) 325 mg tablet Take 2 tablets by mouth every 6 hours as needed for Pain. 10/09/2022 Active nystatin (MYCOSTATIN) 100,000 unit/gram PowderIndications:In tertrigo Apply topically 4 times daily. 30 g 02/04/2023 Active Additional Information Patient taking differently:Topical (Top) 4 TIMES DAILY,PRN, Reported on 12/12/2023 amoxicillin (Amoxil) 500 mg capsule TAKE FOUR CAPSULES BY MOUTH 1 HOUR PRIOR TO APPOINTMENT 07/09/2023 Active Calcium Citrate (Calcitrate) 250 mg calcium tablet Take by mouth. 07/29/2023 Active multivit-min/iron/fo lic acid/K (BARIATRIC MULTIVITAMINS ORAL) Take 1 tablet by mouth daily. Active Active Problems Problem Noted Date Diagnosed Date Renal mass 02/23/2024 Chronic kidney disease, stage II (mild) 11/14/19 Acute dehydration 11/11/2023 Amenorrhea 11/11/2023 Overview (11/11/2023): menopause Blood urea abnormal 11/11/2023 Cardiac murmur, unspecified 11/11/2023 Overview (11/11/2023): systolic murmur Decreased renal function 11/11/2023 History of vein stripping 11/11/2023 Orthostasis 11/11/2023 Serum creatinine raised 11/11/2023 Syncope and collapse 11/11/2023 Gastric bypass status for obesity 10/08/2022 H/O section 08/13/2022 Alcohol abuse 08/13/2022 Allergic condition 08/13/2022 Major depressive disorder 08/13/2022 Dermatochalasis of right lower eyelid 08/13/2022 Dermatochalasis of left lower eyelid 08/13/2022 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 08/13/2022 Essential hypertension 08/13/2022 Excessive consumption of ethanol 08/13/2022 Gastritis 08/13/2022 H/O cardiac murmur 08/13/2022 Headache 08/13/2022 Other general symptoms and signs 08/13/2022 Perimenopause 08/13/2022 Rosacea 08/13/2022 Skin rash 08/13/2022 Class 3 severe obesity with body mass index (BMI) of 45.0 to 49.9 in adult 07/25/2021 Insulin resistance 07/25/2021 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 TESSA (obstructive sleep apnea) 04/13/2021 OA (osteoarthritis) 04/13/2021 Primary osteoarthritis of both knees 11/13/2017 Depression 11/08/2015 Right knee pain 11/08/2015 Hypothyroidism 10/13/2012 Fracture of pelvis 02/28/1996 Encounters Date Type Department Care Team Description 03/02/2024 [place] [phone] Case Riggs MD 02/23/2024 7:30 AM EST - 02/23/2024 11:44 AM EST Surgery [place] [phone] Case Riggs MD @LAPAROSCOPY, RADICAL NEPHRECTOMY (WRVU 25.06) 02/23/2024 7:28 AM EST Anesthesia Event [place] [phone] Gordo Perry MD 02/23/2024 5:49 AM EST - 02/24/2024 3:33 PM EST Hospital Encounter Surgical Unit Level 3 [place] [address] Case Riggs MD Discharge Disposition: Home 02/17/2024 [place] [phone] Katie Aragon, RN 02/17/2024 [place] [address]1000 Katie Aragon, RN 02/17/2024 [place] [phone] Avery Morales MD 01/28/2024 Telephone Nephrology [place] [address] DixieDorcas 01/26/2024 8:30 PM EDT Ancillary Procedure Radiology Library at [facility] [phone] Case Riggs MD 01/22/2024 [place] [address] Erum Power 01/08/2024 [place] [address] Nita Luevano, RN 12/30/2023 [place] [address] Nita Luevano, RN from Last 3 Months Immunizations Name Administration Dates Next Due Covid-19 Monovalent (Moderna Spikevax) 12yrs+ ([id number]) 05/02/2021,07/17/2020,06/19/2020 Td Adult (Decavac, Tenivac) 06/21/2021, 2,11/21/2005 Td Adult (not absorbed) 11/21/2005 Tdap (Adacel, Boostrix) 02/11/2012 Family History Medical History Relation Comments Allergic Rhinitis Brother Allergic Rhinitis Father Allergic Rhinitis Mother Asthma Mother Allergic Rhinitis Sister Asthma Sister Relation Status Comments Brother Father Mother Sister Social History Tobacco Use Types Packs/Day Years Used Date Smoking Tobacco: Former Smokeless Tobacco: Never Comments:quit 1990 Alcohol Use Standard Drinks/Week Comments Yes 0 (1 standard drink = 0.6 oz pur e alcohol) <1 per day [employer] Utilities Answer Date Recorded In the past 12 months has [employer], gas, oil, or water [employer] threatened to shut off services in your [...] any time in the past 12 m [facility], were you homeless or living in a fci (including now)? No 02/24/2024 DH IPV Inpatient [...] on file Sexual Orientation Not on file Last Filed Vital Signs Vital Sign Reading [...] Mass Index 35.93 02/23/2024 6:17 AM EST Plan of Treatment Upcoming Encounters Date Type Department Care Team (Late st Contact Info) Description 04/13/2024 3:20 PM EST Office Visit Dermatology at [address] [place] [address] Felicitas Llanes MD [facility] DR MODESTA [place] [address] 04/26/2024 4:00 PM EST Office Visit Nephrology Hypertension at [facility] [phone] Denia Xiao APRN [facility] [place] [address] Health Maintenance Due Date Last Done Comments CT Colonography 1963 Colonoscopy 1963 Colorectal Cancer Screening 1963 FIT DNA 1963 FIT 1963 Sigmoidoscopy (10 year) with FIT yearly 1963 Sigmoidoscopy 1963 HIV screen 07/31/1981 Hepatitis C Screening 07/31/1981 HPV test 07/31/1993 PAP Smear 07/31/1993 Breast Cancer Share Decision Needed 2003 Breast Cancer screening 2003 Zoster vaccine (1 of 2) 07/31/2013 RSV Vaccine (1 - Risk 60-74 years 1-dose series) 2023 Covid-19 Vaccine (4 - 2023-2 5 season) 2023 05/02/2021, 07/17/2020, 06/19/2020 Influenza (Flu) vaccine (1 o f 1 - Influenza standard series) 11/30/2023 Lipid Screening 04/20/2026 04/20/2021 Diabetes Screening (HgbA1C o r Glucose) 02/23/2027 02/24/2024, 02/23/2024, 11/13/2023, Additional history exists Tetanus/Diphtheria/Pertussis Vaccines (4 - Td or Tdap) 06/22/2031 06/21/2021, 02/11/2012, 02/11/2012, Additional history exists Goals Goal Patient Goal Type Associated Problems Recent Progress Patient-Stated? Author movement Exercise No Robbin-Arsh Bess Note: Try cardio chair exercises. Health Scale Technician will send links to videos. Self monitoring [...] to activate your muscles. Nutrition goals updated 06.10.[address] Note: Continue [...] the pause (STOP, and urge surfing. Health Scale Technician will mail hand-outs. Procedures Procedure Name Priority Date/Time Associated Diagnosis Comments CBC (WITH DIFF) Timed 02/24/2024 3:41 AM EST BASIC METABOLIC PANEL Timed 02/24/2024 3:40 AM EST BASIC METABOLIC PANEL Routine 02/23/2024 10:59 AM EST CBC (WITH DIFF) STAT 02/23/2024 10:59 AM EST SCAN DOC: TELEMETRY STRIPS 02/23/2024 10:43 AM EST SURGICAL PATHOLOGY Routine 02/23/2024 9: 20 AM EST ABORH RECHECK ALEX 02/23/2024 8:34 AM EST Lap, Radical Nephrectomy ([id number]) Yes 02/23/2024 7:29 AM EST Adrenal Mass TYPE AND SCREEN ([facility]/P/CHERISE) STAT 02/23/2024 6:49 AM EST LAB SCAN 02/18/2024 12:00 AM EST FILM LIBRARY STORAGE ONLY CT CHEST Routine 01/26/2024 8:27 PM EDT DIAGNOSTIC RADIOLOGY SCAN 01/26/2024 12:[address] [facility] EXTERNAL RESULT PANEL Routine 04/20/2021 from Last 3 Months or Most Recently Relevant to Health Maintenance Results * (ABNORMAL) CBC (with Diff) (02/24/2024 3:41 AM EST) Only the most recent of2 resultswithin the time period is included. White Blood Cell 8.14 4.00 - 9.50 x10(3)/mc L 02/24/2024 4:03 AM EST [facility] Red Blood Cell 3.62(L) 4.00 - 5.21 x10(6)/mc L 02/24/2024 4:03 AM EST [facility] Hemoglobin 11.3(L) 11.7 - 15.5 g/dL 02/24/2024 4:03 AM [facility] Hematocrit 34.2(L) 35.7 - 45.8 % 02/24/2024 4:03 AM [facility] Mean Cell Volume 94.5(H) 82.6 - 94.4 fL 02/24/2024 4:03 AM [facility] Mean Cell Hemoglobin 31.2 27.1 - 32.0 pg 02/24/2024 4:03 AM [facility] Mean Cell Hemoglobin Concentration 33.0 31.7 - 35.0 g/dL 02/24/2024 4:03 AM [facility] Platelet 210 145 - 357 x10(3)/mc L 02/24/2024 4:03 AM [facility] Mean Platelet Volume 9.4 7.6 - 12.9 fL 02/24/2024 4:03 AM [facility] RDW Standard Deviation 47.8(H) 37.0 - 46.0 fL 02/24/2024 4:03 AM [facility] RDW coefficient of variation 13.6 11.5 - 14.1 % 02/24/2024 4:03 AM [facility] NRBC% auto 0.0 % 02/24/2024 4:03 AM [facility] NRBC Absolute <0.01 <0.01 x10(3)/mc L 02/24/2024 4:03 AM [facility] Neutrophil % 55.6 % 02/24/2024 4:03 AM [facility] Neutrophil Absolute (ANC) - Automated 4.52 1.70 - 6.10 x10(3)/mc L 02/24/2024 4:03 AM [facility] Lymph % 34.0 % 02/24/2024 4:03 AM [facility] Lymph Absolute 2.77 0.90 - 3.20 x10(3)/mc L 02/24/2024 4:03 AM [facility] Monocyte % 9.1 % 02/24/2024 4:03 AM EST [facility] Monocyte Absolute 0.74 0.30 - 0.90 x10(3)/mc L 02/24/2024 4:03 AM EST [facility] Eos % 0.9 % 02/24/2024 4:03 AM [facility] Eos Absolute 0.07 0.00 - 0.40 x10(3)/mc L 02/24/2024 4:03 AM EST [facility] Basophil % 0.2 % 02/24/2024 4:03 AM [facility] Baso Absolute <0.04 0.00 - 0.10 x10(3)/mc L 02/24/2024 4:03 AM [facility] Immature Gran % 0.2 % 4:03 AM [facility] Immature Gran Absolute <0.04 0.00 - 0.04 x10(3)/mc L 02/24/2024 4:03 AM [facility] Blood VENOUS BLOOD SPECIMEN / Unknown Venipuncture / Unknown 02/24/2024 3:41 AM EST 02/24/2024 3:55 AM EST Case Riggs MD HEMATOLOGY ORDERAB LES [facility] [place] [address] * (ABNORMAL) Basic Metabolic Panel (02/24/2024 3:40 AM EST) Only the most recent of2 resultswithin the time period is included. Glucose 92 65 - 199 mg/dL 02/24/2024 4:24 AM [facility] Comment:Glucose Concentratio n >=200 mg/dL plus symptoms is consistent with Diabetes Mellitus. Blood Urea Nitrogen 22(H) 8 - 18 mg/dL 02/24/2024 4:24 AM [facility] Creatinine 1.32(H) 0.70 - 1.20 mg/dL 02/24/2024 4:24 AM [facility] Sodium 132(L) 135 - 145 mMol/L 02/24/2024 4:24 AM [facility] Potassium 4.2 3.5 - 5.0 mMol/L 02/24/2024 4:24 AM [facility] Chloride 98 98 - 107 mMol/L 02/24/2024 4:24 AM [facility] Carbon Dioxide 23 22 - 31 mMol/L 02/24/2024 4:24 AM [facility] Anion Gap 11 5 - 15 mMol/L 02/24/2024 4:24 AM [facility] Calcium 8.4(L) 8.5 - 10.5 mg/dL 02/24/2024 4:24 AM [facility] Est Glomerular Filtration Rate - Female 46 mL/min/1. 73 m?? 02/24/2024 4:24 AM [facility] Comment: This patient's estimated GFR [...] 3:40 AM EST 02/24/2024 3:55 AM EST Case Riggs MD CHEMISTRY ORDERABL ES [facility] [place] [address] * Scan Doc: Telemetry Strips (02/23/2024 10:43 AM EST) Narrative 02/23/2024 10:43 AM EST Ordered by an unspecified provider. Scanning Provider MEDIA MGR SCAN EXT O RDR/RSLT * Surgical Pathology (02/23/2024 9:20 AM EST) Case Report Surgical Pathology Report ? Case: [id number] ? Authorizing Provider: ??Case Riggs MD ?Collected: ? 02/23/2024 0920 ? Ordering Location: ? Main Operating Room Theresa ?? Received: ?02/23/2024 0932 ? [facility] ? [facility] ? Pathologist: ? Jhonatan Hernandez MD ? Specimen: ?Kidney, Right ? 03/01/2024 5:28 PM [facility] Final Diagnosis A. 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 - Background renal parenchyma with mild nonspecific chronic changes including focal tubular atrophy and focal global glomerulosclerosis. 03/01/2024 5:28 PM [facility] Additional Studies Task ID IHC/Special Stains Result A6-2 CK7 Rare single cell staining only 03/01/2024 5:28 PM [facility] Disclaimer(s) Formalin-fixed, paraffin-embedded tissue sections [...] and other diagnostic tests. 03/01/2024 5:28 PM [facility] Clinical Information A. Kidney, Right, *Other - as specified in Clinical Information Right Kidney 03/01/2024 5:28 PM [facility] Gross Description A. Kidney, Right, [...] Inking: Perinephric fat is inked black. Sections/Processing: Client Service Executive sections in 12 cassettes as follows: A1: Vascular margins (en face) A2: Ureter margin (en face) A3-A4: Tumor to renal capsule and perinephric fat A5: Tumor to Gerota's fascia A6-A7: Tumor to renal parenchyma A8-A9: Tumor to renal sinus fat A10: Tumor to hilar soft tissue and renal pelvis A11: Uninvolved renal pelvis A12: Uninvolved renal parenchyma 03/01/2024 5:28 PM EST [facility] Result Note Routine 03/01/2024 5:28 PM EST [facility] Tissue RIGHT KIDNEY STRUCTURE / Unknown 02/23/2024 9:20 AM EST 02/23/2024 9:32 AM EST Comment:Right Kidney Case Riggs MD PATHOLOGY/CYTOLOGY ORDERABLES [facility] [place] [address] * ABORH RECHECK (02/23/2024 8:34 AM EST) ABORH Recheck O NEGATIVE 02/23/2024 9:21 AM EST [facility] Blood VENOUS BLOOD SPECIMEN / Unknown Venipuncture / Unknown 02/23/2024 8:34 AM EST 02/23/2024 8:48 AM EST Case Riggs MD BLOOD BANK LAB ORD ERABLES [facility] [place] [address] * Type and screen (MC/CGP/CHERISE) (02/23/2024 6:49 AM EST) ABORH Type O NEGATIVE 02/23/2024 7:44 AM EST [facility] PATIENT HISTORY Not Found 02/23/2024 7:44 AM EST [facility] Expires at [id number] on: 02/26/2024 02/23/2024 7:44 AM EST [facility] ANTIBODY SCREEN AUTOMATED Negative 02/23/2024 7:44 AM EST [facility] T&S only valid at [facility] 02/23/2024 7:44 AM EST [facility] Blood VENOUS BLOOD SPECIMEN / Unknown Venipuncture / Unknown 02/23/2024 6:49 AM EST 02/23/2024 6:53 AM EST Narrative [facility] - 02/23/2024 7:44 AM EST This Type and Screen result is only valid at the [facility] Case Riggs MD BLOOD BANK LAB ORD ERABLES Performing Organization Address City/[facility] Co de Phone Number [facility] [place] [address] * Scan Doc: Lab (02/18/2024 12:00 AM EST) Narrative 02/18/2024 12:00 AM EST Ordered by an unspecified provider. Scanning Provider MEDIA MGR SCAN EXT O RDR/RSLT * Film Library- Storage Only CT Chest (01/26/2024 8:27 PM EDT) Narrative [facility] - 01/26/2024 8:27 PM EDT This exam is auto-finalizing. It's purpose is for storage only. Case Riggs MD IM FILM LIBRARY O RDERABLES Performing Organization Address City/[facility]/ZIP Co de Phone Number [place], [place] * Scan Doc: Diagnostic Radiology (01/26/2024 12:00 AM EDT) Anatomical Region Laterality Modality Other Narrative 01/26/2024 12:00 AM EDT Ordered by an unspecified provider. Scanning Provider MEDIA MGR SCAN EXT O RDR/RSLT * (ABNORMAL) [facility] External Results (04/20/2021) Cholesterol, Total 241(ExtH) Triglyceride 101(Exter nal Lab) HDL Cholesterol 57(Edi Coordinator al Lab) LDL Cholesterol 164(ExtH) Hemoglobin A1c 5.6(Exter nal Lab) Glucose Fasting 97(Edi Coordinator al Lab) Blood Urea Nitrogen 26(ExtH) Creatinine 1(Externa l Lab) Sodium 140(Exter nal Lab) Potassium 4.2(Exter nal Lab) Chloride 102(Exter nal Lab) Carbon Dioxide 28(Edi Coordinator al Lab) Anion Gap 10(Edi Coordinator al Lab) Calcium 8.6(Exter nal Lab) Albumin 3.8(Exter nal Lab) Aspartate Aminotransferase 11(ExtL) Alanine Aminotransferase 20(Edi Coordinator al Lab) Alkaline Phosphatase 61(Edi Coordinator al Lab) Bilirubin, Total 0.3(Exter nal Lab) Est Glomerular Filtration Rate 57.15(Ext ernal Lab) Vitamin D Total 25 OH 35.3(Exte rnal Lab) Insulin 26.7(Exte rnal Lab) Ferritin 109(Exter nal Lab) Vitamin B12 584(Exter nal Lab) 04/20/2021 Historical Provider POINT OF CARE TREY T ORDERABLES from Last 3 Months or Most Recently Relevant to Health Maintenance Advance Directives Documents on File Type Date Recorded Patient Client Service Executive Expl anation Advance Directives and Livin g Will 02/24/2024 2:52 PM * Attempt Cardiopulmonary Resuscitation - Inpatient (Latest Code Status on File) Date Activated Date Inactivated Comments 02/23/2024 7:45 PM 02/24/2024 5:38 PM Question Answer Comments Code Status decision made by: Patient * Attempt Cardiopulmonary Resuscitation - Inpatient Date Activated Date Inactivated Comments 02/23/2024 7:04 AM 02/23/2024 7:45 PM Question Answer Comments Code Status decision made by: Patient * Attempt Cardiopulmonary Resuscitation - Inpatient Date Activated Date Inactivated Comments 10/08/2022 5:51 PM 10/09/2022 4:02 PM Question Answer Comments Code Status decision made by: Patient Care Teams Double End Trimmer Relationship Specialty Start Date End Date Barbara, Susan Mobley APRN [address] [place] [address] PCP - General Internal Medicine 09/15/23
--- OUTSIDE RECORDS SUMMARY | 2024-03-20 11:51 | XMS_ITS | Encounter Summary ---
Author Organization [facility] Address [facility] [place] [address] Care Team Providers Care Toy Stuffer Name Role Phone BarbaraSusan APRN Primary Care Provider [phone]- [phone] Encounter Details Date Type Department Care Team (Late st Contact Info) Description 01/26/2024 8:30 PM EDT Ancillary Procedure Radiology Library at [facility] [place] [phone] Case Riggs MD [facility] [place] [address] Social History Tobacco Use Types Packs/Day Years Used Date Smoking Tobacco: Former Smokeless Tobacco: Never Comments:quit 1990 Alcohol Use Standard Drinks/Week Comments Yes 0 (1 standard drink = 0.6 oz pur e alcohol) <1 per day [facility] Inpatient Questions Answer Date Recorded Does Anyone Try to Keep You From Having Contact with Others or Doing Things Outside Your Home? unable to answer (comment required) 10/08/2022 Feels Threatened by Someone unable to an swer (comment required) 10/08/2022 Feels Unsafe at Home or Work/School unab le to answer (comment required) 10/08/2022 Physical Signs of Abuse Present no 10/08/2022 Sex and Gender Information Value Date Recorded Sex Assigned at Not on file Gender Identity Not on file Sexual Orientation Not on file documented as of this encounter Plan of Treatment Upcoming Encounters Date Type Department Care Team (Late st Contact Info) Description 04/13/2024 3:20 PM EST Office Visit Dermatology at [facility] [address] [place] [address] Felicitas Llanes MD [facility] [address] [place] [address] 04/26/2024 4:00 PM EST Office Visit Nephrology Hypertension at [facility] [place] [address] Denia Xiao APRN [facility] [place] [address] documented as of this encounter Goals Goal Patient Goal Type Associated Problems Recent Progress Patient-Stated? Author movement Exercise No Arsh So Note: Try cardio chair exercises. Health Fabricator Special Items will send links to videos. Self monitoring [...] to activate your muscles. Nutrition goals updated 3. Lifestyle No Arlin Mac RD Note: Continue [...] the pause (STOP, and urge surfing. Health Fabricator [employer] Items will mail hand-outs. documented as of this encounter Procedures Procedure Name Priority Date/Time Associated Diagnosis Comments FILM LIBRARY STORAGE ONLY CT CHEST Routine 01/26/2024 8:27 PM EDT documented in this encounter Results * Film Library- Storage Only CT Chest (01/26/2024 8:27 PM EDT) Narrative [facility] - 01/26/2024 8:27 PM EDT This exam is auto-finalizing. It's purpose is for storage only. Case Riggs MD IMG FILM LIBRARY O RDERABLES Performing Organization Address City/State/[facility] Co de Phone Number [place], [place] documented in this encounter Visit Diagnoses Not on filedocumented in this encounter Care Teams Toy Stuffer Relationship Specialty Start Date End Date Barbara, Susan Mobley APRN [address] [place] [address] PCP - General Internal Medicine 09/15/23 documented as of this encounter
--- OUTSIDE RECORDS SUMMARY | 2024-03-20 11:51 | XMS_ITS | Encounter Summary ---
[place] [address] Care Team Providers Care Radio Equipment Installer Name Role Phone Susan Jimenez APRN Primary Care Provider +1- [phone] Encounter Details Date Type Department Care Team (Late st Contact Info) Description 11/11/2023 Orders Only Nephrology [place] [phone] Emelyn Spicer, MIRYAM Social History Tobacco Use Types Packs/Day Years Used Date Smoking Tobacco: Former Smokeless Tobacco: Never Comments:quit 1990 Alcohol Use Standard Drinks/Week Comments Yes 0 (1 standard drink = 0.6 oz pur e alcohol) <1 per day IPV Inpatient Questions Answer Date Recorded Does [...] 3:20 PM EST Office Visit Dermatology at [facility] [address] [place] [address] Felicitas Llanes MD [facility] [address] [place] [address] 04/26/2024 4:00 PM EST Office Visit Nephrology Hypertension at [facility] [place] [address] Denia Xiao APRN [facility] [place] [address] documented as of this encounter Goals Goal Patient Goal Type Associated Problems Recent Progress Patient-Stated? Author movement Exercise No Arsh So Note: Try cardio chair exercises. Health Military Administrative Technician will send links to videos. Self [...] to activate your muscles. Nutrition goals updated 3.. Lifestyle No Arlin Mac RD Note: Continue [...] the pause (STOP, and urge surfing. Health Military Administrative Technician will mail hand-outs. documented as of this encounter Visit Diagnoses Not on filedocumented in this encounter Care Teams Radio Equipment Installer Relationship Specialty Start Date End Date Barbara, Susan Mobley APRN [address] [place] [address] PCP - General Internal Medicine 09/15/23 documented as of this encounter
--- OUTSIDE RECORDS SUMMARY | 2024-03-20 11:51 | XMS_ITS | Encounter Summary ---
Author Organization [facility] Address [facility] [place] [address] Care Team Providers Care Behavioral Instructor Name Role Phone Susan Jimenez APRN Primary Care Provider +1- [phone] Encounter Details Date Type Department Care Team (Latest Contact Info) Description 10/15/2023 Travel Social History Tobacco Use Types Packs/Day Years Used Date Smoking Tobacco: Former Smokeless Tobacco: Never Comments:quit 1990 Alcohol Use Standard Drinks/Week Comments Yes 0 (1 standard drink = 0.6 oz pur e alcohol) <1 per day DH IPV Inpatient Questions Answer Date Recorded [...] 3:20 PM EST Office Visit Dermatology at [facility] [address] [place] [address] Felicitas Llanes MD [facility] [address] [place] [address] 04/26/2024 4:00 PM EST Office Visit [place] [address] Denia Xiao APRN [facility] [place] [address] documented as of this encounter Goals Goal Patient Goal Type Associated Problems Recent Progress Patient-Stated? Author movement Exercise No Arsh So Note: Try cardio chair exercises. Health Cash On Delivery Clerk will send links to videos. Self monitoring Lifestyle On track(2021 10:00 AM EST) No Dneia Khalil MD Note: Keep food log until [...] the pause (STOP, and urge surfing. Health Cash On Delivery Clerk will mail hand-outs. documented as of this encounter Visit Diagnoses Not on filedocumented in this encounter Care Teams Behavioral Instructor Relationship Specialty Start Date End Date Barbara, Susan Mobley APRN [address] [place] [address] PCP - General Internal Medicine 09/15/23 documented as of this encounter
--- OUTSIDE RECORDS SUMMARY | 2024-03-20 11:51 | XMS_ITS | Encounter Summary ---
Author Organization [facility] [place] [address] Care Team Providers Care Automatic Mounter Name Role Phone Susan Jimenez APRN Primary Care Provider +1- [phone] Encounter Details Date Type Department Care Team (Late st Contact Info) Description 01/22/2024 [place] [phone] Erum Power Social History Tobacco Use Types Packs/Day Years Used Date Smoking Tobacco: Former Smokeless Tobacco: Never Comments:quit 1990 Alcohol Use Standard Drinks/Week Comments Yes 0 (1 standard drink = 0.6 oz pur e alcohol) <1 per day [facility] Utilities Answer Date Recorded In the past 12 months has [employer], gas, oil, or water [employer] threatened to shut off services in your home? No 02/24/2024 Hunger Vital Sign Answer Date Recorded Within the past 12 months, y ou worried that your food would run out before you got the money to buy more. Never true 02/24/20 Within the past 12 months, t he [...] any time in the past 12 m ont, were you homeless or living in a long term (including now)? No 02/24/2024 IPV Inpatient Questions [...] encounter Miscellaneous Notes * Telephone Encounter - Erum Power - 01/22/2024 3:44 PM EDT Attempted to contact patient to let her know that her CT Scan of her chest wo Contrast has been approved by her insurance company documented in this encounter Plan of Treatment Upcoming Encounters Date Type Department Care Team (Late st Contact Info) Description 04/13/2024 3:20 PM EST Office Visit Dermatology at [place] [address] [place] [address] Felicitas Llanes MD [facility] [address] [place] [address] 04/26/2024 4:00 PM EST Office Visit [place]ph[place] [address] Denia Xiao APRN [facility] [place] [address] documented as of this encounter Goals Goal Patient Goal Type Associated Problems Recent Progress Patient-Stated? Author movement Exercise No Arsh So Note: Try cardio chair exercises. Health Land Management Forester will send links to videos. Self monitoring [...] goals updated 06.10.22 Lifestyle No Arlin Mac I, HILLARY Note: [...] the pause (STOP, and urge surfing. Health Land Management Forester will mail hand-outs. documented as of this encounter Visit Diagnoses Not on filedocumented in this encounter Care Teams Automatic Mounter Relationship Specialty Start Date End Date Barbara, Susan Mobley APRN [address] [place] [address] PCP - General Internal Medicine 09/15/23 documented as of this encounter
--- OUTSIDE RECORDS SUMMARY | 2024-03-20 11:51 | XMS_ITS | Encounter Summary ---
Author Organization [facility] Address [facility] [place] [address] Care Team Providers Care Director Of Strategic Communications Name Role Phone Susan Jimenez APRN Primary Care Provider +1- [phone] Encounter Details Date Type Department Care Team (Late st Contact Info) Description 02/17/2024 [place] [address] Avery Morales MD [facility] [place] [address] Social History Tobacco Use Types Packs/Day Years Used Date Smoking Tobacco: Former Smokeless Tobacco: Never Comments:quit 1990 Alcohol Use Standard Drinks/Week Comments Yes 0 (1 standard drink = 0.6 oz pur e alcohol) <1 per day [facility] Inpatient Questions Answer Date Recorded Does Anyone [...] encounter Miscellaneous Notes * Telephone Encounter - Avery Morales MD - 02/17/2024 8:01 AM EST Provided a voicemail for ucx to be dropped off prior to OR. documented in this encounter Plan of Treatment Upcoming Encounters Date Type Department Care Team (Late st Contact Info) Description 04/13/2024 3:20 PM EST Office Visit Dermatology at [facility] [address] [place] [address] Felicitas Llanes MD [facility] [address] [place] [address] 04/26/2024 4:00 PM EST Office Visit Nephrology Hypertension at [facility] [place] [address] Denia Xiao APRN [facility] [place] [address] documented as of this encounter Goals Goal Patient Goal Type Associated Problems Recent Progress Patient-Stated? Author movement Exercise No Arsh So Note: Try cardio chair exercises. Health Word Processing Operator will send links to videos. Self monitoring [...] goals updated [address] Note: Continue [...] the pause (STOP, and urge surfing. Health Word Processing Operator will mail hand-outs. documented as of this encounter Visit Diagnoses Not on filedocumented in this encounter Care Teams Director Of Strategic Communications Relationship Specialty Start Date End Date Barbara, Susan Mobley APRN [address] [place] [address] PCP - General Internal Medicine 09/15/23 documented as of this encounter
--- OUTSIDE RECORDS SUMMARY | 2024-03-20 11:51 | XMS_ITS | Encounter Summary ---
[place] [address] Care Team Providers Care Digital Sales Assistant Name Role Phone Susan Jimenez APRN Primary Care Provider +1- [phone] Encounter Details Date Type Department Care Team (Late st Contact Info) Description 12/02/2023 Telephone Nephrology [place] [address] Connie Gomez RN Social History Tobacco Use Types Packs/Day Years Used Date Smoking Tobacco: Former Smokeless Tobacco: Never Comments:quit 1990 Alcohol Use Standard Drinks/Week Comments Yes 0 (1 standard drink = 0.6 oz pur e alcohol) <1 per day [facility] Inpatient Questions Answer Date Recorded Does Anyone [...] encounter Miscellaneous Notes * Telephone Encounter - Connie Gomez RN - 12/02/2023 3:08 PM EDTSummary: Prior Authorization- [facility] Urogram [facility] Procedure Prior Authorization Procedure name: CT Urogram 76968, [address]55. Rationale for request: N28.89 Health plan: [facility] Authorizing customer contact representative name: Juanito Phone number for customer contact representative:[phone] Fax number for customer contact representative: [phone] Faxed to health plan on: 12/02/2023 Health plan decision: APPROVED CASE # [id number], [id number] Quantity approved: Authorization number: [id number], [id number] Start date: 12/03/23 End date: 01/16/24 AND 01/17/24 Patient notified? YES Pharmacy notified? documented in this encounter Plan of Treatment Upcoming Encounters Date Type Department Care Team (Late st Contact Info) Description 04/13/2024 3:20 PM EST Office Visit Dermatology at [address] [place] [address] Felicitas Llanes MD [facility] [address] [place] [address] 04/26/2024 4:00 PM EST Office Visit Nephrology [place] [address] Denia Xiao APRN [facility] [place] [address] documented as of this encounter Goals Goal Patient Goal Type Associated Problems Recent Progress Patient-Stated? Author movement Exercise No Arsh So Note: Try cardio chair exercises. Health Buckle Attaching Machine Operator will send links to videos. Self [...] the pause (STOP, and urge surfing. Health Buckle Attaching Machine Operator will mail hand-outs. documented as of this encounter Visit Diagnoses Not on filedocumented in this encounter Care Teams Digital Sales Assistant Relationship Specialty Start Date End Date Barbara, Susan Mobley APRN [address] [place] [address] PCP - General Internal Medicine 09/15/23 documented as of this encounter
--- OUTSIDE RECORDS SUMMARY | 2024-03-20 11:51 | XMS_ITS | Encounter Summary ---
Author Organization [facility] [place] [address] Care Team Providers Care Family Dentist Name Role Phone Susan Jimenez APRN Primary Care Provider [phone] Reason for Visit * Auth/Cert (Routine) Specialty Diagnoses / Procedures Referred By Yury thornton Referred To Contact Diagnoses Right renal mass TO MD Procedures PRO LAP, RADICAL NEPHRECTOMY @LAPAROSCOPY, RADICAL NEPHRECTOMY (WRVU ) Chio Riggs MD [facility] [address] [facility] Referral ID Status Reason Start Date Expiration Date Visits Re quested Visits Authorized [id number] 1 1 Encounter Details Date Type Department Care Team (Late st Contact Info) Description 02/23/2024 7:30 AM EST - 02/23/2024 11:44 AM EST [place] [address] Chio Riggs MD [facility] [place] [address] @LAPAROSCOPY, RADICAL NEPHRECTOMY (WRVU ) Social History Tobacco Use Types Packs/Day Years Used Date Smoking Tobacco: Former Smokeless Tobacco: Never Comments:quit 1990 Alcohol Use Standard Drinks/Week Comments Yes 0 (1 standard drink = 0.6 oz pur e alcohol) <1 per day [facility] Utilities Answer Date Recorded In the [...] any time in the past [address] [facility], were you homeless or living in a longterm (including now)? No 02/24/2024 IPV Inpatient Questions [...] Sign Reading Time Taken Comments Blood Pressure 132/73 02/23/2024 11:30 AM EST Pulse 46 02/23/2024 11:30 AM EST Temperature 36.3 ??C (97.3 ??F) 02/23/2024 1 0:30 AM EST Respiratory Rate 15 02/23/2024 11:3 0 AM EST Oxygen Saturation 98% 02/23/2024 11: 30 AM EST Inhaled Oxygen Concentration - - Weight 97.9 kg (215 lb 14.4 oz) 02/23/2024 6:17 AM EST Height 165.1 cm (5' 5) 02/23/2024 6:17 AM EST Body Mass Index 35.93 02/23/2024 6:17 AM EST documented in this encounter Discharge Summaries * Chio Riggs MD - 02/24/2024 1:34 PM EST Discharge Summary Patient Name: Liss Mosley Patient Age: 58 y.o. Language: Korean Race: White Ethnicity: Not nor Admit date: 02/23/2024 Discharge date: 02/24/2024 Attending Physician: Ciho Riggs MD Discharge Diagnoses (Hospital Problems) and [...] Hospital Course: Patient was admitted electively to [facility] via the same day surgery program and [...] Date(s) Administered Covid-19 Monovalent (Moderna Spikevax) 12yrs+ ([id number]) 06/19/2020, 07/17/2020, 05/02/2021 Td Adult (Decavac, Tenivac) [...] may be used if needed and are ngcu-cwm-lewpgir medications available at most local pharmacies. Prunes [...] 3:20 PM Felicitas Llanes MD Dermatology at [facility] Arrive at: Academic Affairs Vice President [address] [place] [address] 04/26/2024 4:00 PM Denia Xiao APRN Nephrology Hypertension at [facility] Arrive at: Academic Affairs Vice President Area [phone] General Instructions None Future Appointments and Orders Future Appointments and Orders Future Appointments Provider Department Dept Phone 04/13/2024 3:20 PM Felicitas Llanes MD Dermatology at [facility] Arrive at: Academic Affairs Vice President [address] [place] [address] 04/26/2024 4:00 PM Denia Xiao APRN Nephrology Hypertension at [facility] Arrive at: Academic Affairs Vice President Area [phone] Follow-Up: Future Appointments Date Time Provider Department Center 04/13/2024 3:20 PM Felicitas Llanes MD Htr Derm [facility] 04/26/2024 4:00 PM Denia Xiao APRN [facility] NEPH [facility] Primary Care Provider: Susan Jimenez APRN [phone] Follow-up Recommendations for Providers: None Unexpected Findings: [...] was managed by the Urology Team at [facility]. If you have any questions or concerns, please feel free to contact us. Provider Contact Information: Urology Clinic: [facility] (after business hours): CONG Jeffries 02/24/2024 documented [...] may be used if needed and are oreq-nmg-xgmsbby medications available at most local pharmacies. Prunes [...] 3:20 PM Felicitas Llanes MD Dermatology at [facility] Arrive at: Academic Affairs Vice President [address] [place] [address] 04/26/2024 4:00 PM Denia Xiao APRN Nephrology Hypertension at [facility] Arrive at: Academic Affairs Vice President Area [phone] documented in this encounter Medications at Time [...] The following Message was sent: [] - Callback:[id number] [id number] Melany Order home meds Lisinopril 10mg, Melatonin, Montelukast 10mg. Rosa Graves The following status was returned from the buffet server: Page for [phone] successfully sent to [phone] having status of Available. * Avery Serrano Jr., RN - 02/23/2024 4:20 PM EST OUTCOME EVALUATION NOTE: OUTCOME SUMMARY: Pt A&Ox4, VSS on RA. Pain controlled with scheduled and PRN medications, see MAR. Pt family at bedside and updated by provider. Surgical sites with derma bound ELENITA. Quigley draining CYU. Patient tolerating diet. IVFs [...] Quigley draining clear, yellow urine. Abdominal incisions ELENITA and well approx Report called to Jonas [...] 20.38) performed by Annabella Borrero MD at [facility] MAIN OR PRO UPPER GI ENDOSCOPY, DIAGNOSTIC N/A 10/08/2022 EGD, UPPER GI ENDOSCOPY (WRVU 2.09) performed by Annabella Borrero MD at [facility] MAIN OR ALLERGIES Allergies Allergen Reactions Adhesive [...] 02/24/2024 2:44 PM EST Patient completed a [place] advance directive and identified her son Rodney [...] 180 days) Any patient receiving care in [place] must abide by [place] law. The hierarchy [...] (i) The agent with financial power of employee benefits attorney or a conservator appointed in accordance [...] were you homeless or living in a longterm (including now)?: No In the past 12 months has the [employer], gas, oil, or water [employer] threatened to shut off services in your [...] Current DME: none Home Address confirmed as: [address] [place] [phone] Social & Family Supports: Extended Emergency Contact Information Primary Emergency Contact: Griselda Pate [place] [facility] Mobile Relation: Mother Secondary Emergency Contact: Alisha Mosley Address: [address] [place] [address] Mobile Relation: Child Current Care Provided by: self Provides Primary Care For: no one Caregiver if needed: sibling(s) Quality of Family relationships: helpful, involved Community Resources being provided currently: none Behavioral Health History: Denies Substance Use/Abuse listed: Social History Tobacco Use Smoking Status Former Smokeless Tobacco Never Tobacco Comments quit 1991 In the past year have you used [...] Specific Information: n/a Health/Prescription Coverage: Primary Insurance: [employer] [place] Payor: [employer] [place] / Plan[place] VHP / Product Type: *No Product type* / Secondary Insurance: N/A Prescription Coverage: Yes Preferred Pharmacy: [facility] - [place], [place] - [address] [address] [facility] - [place], [place] - [address] [facility] [address] [place] [address] [place], [place] - [address] [facility] [address] [facility] [address] [facility] [address] [place] Status: Patient is a : No Primary Care Provider listed: Susan Jimenez, MINING MACHINERY ASSEMBLER [phone] Patient/Caregiver Goals of Treatment: Potential Needs for [...] Yola Chavez RN, BSN Case Management Work [phone] * Plan of Care - Rosa Graves [...] Garcia MD - 02/23/2024 8:17 AM EST [facility] Operative Note Patient Name: Liss Mosley : [id number] MR#: [id number] Case Date: 02/23/2024 Surgeon: Surgeons and Role: [...] 3:20 PM EST Office Visit Dermatology at [facility] [address] [place] [address] Felicitas Llanes MD [facility] DR MODESTA [place] [address] 04/26/2024 4:00 PM EST Office Visit [place] [address] Denia Xiao APRN [facility] [place] [address] documented as of this encounter Goals Goal Patient Goal Type Associated Problems Recent Progress Patient-Stated? Author movement Exercise No Arsh So Note: Try cardio chair exercises. Health Multisensor Intelligence Officer will send links to videos. Self monitoring [...] the pause (STOP, and urge surfing. Health Multisensor Intelligence Officer will mail hand-outs. documented as of this [...] 02/23/2024 8:34 AM EST Lap, Radical Nephrectomy ([address]) Yes 02/23/2024 7:29 AM EST Adrenal Mass TYPE AND SCREEN ([facility]/CGP/CHERISE) STAT 02/23/2024 6:49 AM EST documented in this encounter Results * (ABNORMAL) CBC (with Diff) (02/24/2024 3:41 AM EST) White Blood Cell 8.14 4.00 - 9.50 x10(3)/mc L 02/24/2024 4:03 AM [facility] Red Blood Cell 3.62(L) 4.00 - 5.21 x10(6)/mc L 02/24/2024 4:03 AM [facility] Hemoglobin 11.3(L) 11.7 - 15.5 g/dL 02/24/2024 4:03 AM [facility] Hematocrit 34.2(L) 35.7 - 45.8 % 02/24/2024 4:03 AM [facility] Mean Cell Volume 94.5(H) 82.6 - 94.4 fL 02/24/2024 4:03 AM [facility] Mean Cell Hemoglobin 31.2 27.1 - 32.0 pg 02/24/2024 4:03 AM [facility] Mean Cell Hemoglobin Concentration 33.0 31.7 - 35.0 g/dL 02/24/2024 4:03 AM [facility] Platelet 210 145 - 357 x10(3)/mc L 02/24/2024 4:03 AM [facility] Mean Platelet Volume 9.4 7.6 - 12.9 fL 02/24/2024 4:03 AM [facility] RDW Standard Deviation 47.8(H) 37.0 - 46.0 fL 02/24/2024 4:03 AM [facility] RDW coefficient of variation 13.6 11.5 - 14.1 % 02/24/2024 4:03 AM [facility] NRBC% auto 0.0 % 02/24/2024 4:03 AM [facility] NRBC Absolute <0.01 <0.01 x10(3)/mc L 02/24/2024 4:03 AM [facility] Neutrophil % 55.6 % 02/24/2024 4:03 AM [facility] Neutrophil Absolute (ANC) - Automated 4.52 1.70 - 6.10 x10(3)/mc L 02/24/2024 4:03 AM [facility] Lymph % 34.0 % 02/24/2024 4:03 AM [facility] Lymph Absolute 2.77 0.90 - 3.20 x10(3)/mc L 02/24/2024 4:03 AM [facility] Monocyte % 9.1 % 02/24/2024 4:03 AM [facility] Monocyte Absolute 0.74 0.30 - 0.90 x10(3)/mc L 02/24/2024 4:03 AM [facility] Eos % 0.9 % 02/24/2024 4:03 AM [facility] Eos Absolute 0.07 0.00 - 0.40 x10(3)/mc L 02/24/2024 4:03 AM [facility] Basophil % 0.2 % 02/24/2024 4:03 AM [facility] Baso Absolute <0.04 0.00 - 0.10 x10(3)/mc L 02/24/2024 4:03 AM [facility] Immature Gran % 0.2 % 4:03 AM [facility] Immature Gran Absolute <0.04 0.00 - 0.04 x10(3)/mc L 02/24/2024 4:03 AM [facility] Blood VENOUS BLOOD SPECIMEN / Unknown Venipuncture / Unknown 02/24/2024 3:41 AM EST 02/24/2024 3:55 AM EST Chio Riggs MD HEMATOLOGY ORDERAB LES [facility] [place] [address] * (ABNORMAL) Basic Metabolic Panel (02/24/2024 3:40 AM EST) Glucose 92 65 - 199 mg/dL 02/24/2024 4:24 AM [facility] Comment:Glucose Concentratio n >=200 mg/dL plus symptoms is consistent with Diabetes Mellitus. Blood Urea Nitrogen 22(H) 8 - 18 mg/dL 02/24/2024 4:24 AM [facility] Creatinine 1.32(H) 0.70 - 1.20 mg/dL 02/24/2024 4:24 AM EST [facility] Sodium 132(L) 135 - 145 mMol/L 02/24/2024 4:24 AM [facility] Potassium 4.2 3.5 - 5.0 mMol/L 02/24/2024 4:24 AM EST [facility] Chloride 98 98 - 107 mMol/L 02/24/2024 4:24 AM [facility] Carbon Dioxide 23 22 - 31 mMol/L 02/24/2024 4:24 AM [facility] Anion Gap 11 5 - 15 mMol/L 02/24/2024 4:24 AM [facility] Calcium 8.4(L) 8.5 - 10.5 mg/dL 02/24/2024 4:24 AM [facility] Est Glomerular Filtration Rate - Female 46 mL/min/1. 73 m?? 02/24/2024 4:24 AM [facility] Comment: This patient's estimated GFR was [...] EST Chio Riggs MD CHEMISTRY ORDERABL ES [facility] [place] [address] * (ABNORMAL) Basic Metabolic Panel (02/23/2024 10:59 AM EST) Glucose 126 65 - 199 mg/dL 02/23/2024 11:46 AM [facility] Comment:Glucose Concentratio n >=200 mg/dL plus symptoms is consistent with Diabetes Mellitus. Blood Urea Nitrogen 23(H) 8 - 18 mg/dL 02/23/2024 11:46 AM [facility] Creatinine 1.08 0.70 - 1.20 mg/dL 02/23/2024 11:46 AM [facility] Sodium 135 135 - 145 mMol/L 02/23/2024 11:46 AM [facility] Potassium 4.6 3.5 - 5.0 mMol/L 02/23/2024 11:46 AM [facility] Chloride 101 98 - 107 mMol/L 02/23/2024 11:46 AM [facility] Carbon Dioxide 22 22 - 31 mMol/L 02/23/2024 11:46 AM [facility] Anion Gap 12 5 - 15 mMol/L 02/23/2024 11:46 AM [facility] Calcium 8.9 8.5 - 10.5 mg/dL 02/23/2024 11:46 AM [facility] Est Glomerular Filtration Rate - Female 59 mL/min/1. 73 m?? 02/23/2024 11:46 AM [facility] Comment: This patient's estimated GFR was [...] EST Chio Riggs MD CHEMISTRY ORDERABL ES [facility] [place] [address] * (ABNORMAL) CBC (with Diff) (02/23/2024 10:59 AM EST) White Blood Cell 9.55(H) 4.00 - 9.50 x10(3)/mc L 02/23/2024 11:30 AM [facility] Red Blood Cell 3.90(L) 4.00 - 5.21 x10(6)/mc L 02/23/2024 11:30 AM [facility] Hemoglobin 12.2 11.7 - 15.5 g/dL 02/23/2024 11:30 AM [facility] Hematocrit 37.4 35.7 - 45.8 % 02/23/2024 11:30 AM [facility] Mean Cell Volume 95.9(H) 82.6 - 94.4 fL 02/23/2024 11:30 AM [facility] Mean Cell Hemoglobin 31.3 27.1 - 32.0 pg 02/23/2024 11:30 AM [facility] Mean Cell Hemoglobin Concentration 32.6 31.7 - 35.0 g/dL 02/23/2024 11:30 AM [facility] Platelet 231 145 - 357 x10(3)/mc L 02/23/2024 11:30 AM [facility] Mean Platelet Volume 9.5 7.6 - 12.9 fL 02/23/2024 11:30 AM [facility] RDW Standard Deviation 48.0(H) 37.0 - 46.0 fL 02/23/2024 11:30 AM [facility] RDW coefficient of variation 13.6 11.5 - 14.1 % 02/23/2024 11:30 AM [facility] NRBC% auto 0.0 % 02/23/2024 11:30 AM [facility] NRBC Absolute <0.01 <0.01 x10(3)/mc L 02/23/2024 11:30 AM [facility] Neutrophil % 82.1 % 02/23/2024 11:30 AM [facility] Neutrophil Absolute (ANC) - Automated 7.83(H) 1.70 - 6.10 x10(3)/mc L 02/23/2024 11:30 AM [facility] Lymph % 14.0 % 02/23/2024 11:30 AM [facility] Lymph Absolute 1.34 0.90 - 3.20 x10(3)/mc L 02/23/2024 11:30 AM [facility] Monocyte % 3.0 % 02/23/2024 11:30 AM [facility] Monocyte Absolute 0.29(L) 0.30 - 0.90 x10(3)/mc L 02/23/2024 11:30 AM [facility] Eos % 0.3 % 02/23/2024 11:30 AM [facility] Eos Absolute <0.04 0.00 - 0.40 x10(3)/mc L 02/23/2024 11:30 AM [facility] Basophil % 0.3 % 02/23/2024 11:30 AM [facility] Baso Absolute <0.04 0.00 - 0.10 x10(3)/mc L 02/23/2024 11:30 AM [facility] Immature Gran % 0.3 % 11:30 AM [facility] Immature Gran Absolute <0.04 0.00 - 0.04 x10(3)/mc L 02/23/2024 11:30 AM [facility] Blood VENOUS BLOOD SPECIMEN / Unknown Venipuncture / Unknown 02/23/2024 10:59 AM EST 02/23/2024 11:14 AM EST Chio Riggs MD HEMATOLOGY ORDERAB LES Performing Organization Address [facility]/State/ZIP Co de Phone Number [facility] [place] [address] * Surgical Pathology (02/23/2024 9:20 AM EST) Case Report Surgical Pathology Report ? Case: [id number] ? Authorizing Provider: ??Chio Riggs MD ?Collected: ? 02/23/2024 0920 ? Ordering Location: ? Main Operating Room Theresa ?? Received: ?02/23/2024 0932 ? [facility] ? Hospital ? Pathologist: ? Jhonatan Hernandez MD ? Specimen: ?Kidney, Right ? 03/01/2024 5:28 PM [facility] Final Diagnosis A. 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 - Background renal parenchyma with mild nonspecific chronic changes including focal tubular atrophy and focal global glomerulosclerosis. 03/01/2024 5:28 PM [facility] Additional Studies Task ID IHC/Special Stains Result A6-2 CK7 Rare single cell staining only 03/01/2024 5:28 PM [facility] Disclaimer(s) Formalin-fixed, paraffin-embedded tissue sections are [...] and other diagnostic tests. 03/01/2024 5:28 PM [facility] Clinical Information A. Kidney, Right, *Other - as specified in Clinical Information Right Kidney 03/01/2024 5:28 PM [facility] Gross Description A. Kidney, Right, . A - Labeled/Fixative: Kidney, right, fresh. Quantity/Size/Weight: Single, 14.0 x 11.0 x 6.0 cm, 258 g. SPECIMEN DESCRIPTION Resection Specimen: Intact, right, ureter is received clipped. LESION Size: 4.5 x 4.1 x 3.6 cm. Location: Middle. Color: Yellow-ansh. Consistency: Fleshy, soft. Contour: Bulging. Focality: Unifocal. [...] Inking: Perinephric fat is inked black. Sections/Processing: [employer] Artistic Director sections in 12 cassettes as follows: A1: Vascular margins (en face) A2: Ureter margin (en face) A3-A4: Tumor to renal capsule and perinephric fat A5: Tumor to Gerota's fascia A6-A7: Tumor to renal parenchyma A8-A9: Tumor to renal sinus fat A10: Tumor to hilar soft tissue and renal pelvis A11: Uninvolved renal pelvis A12: Uninvolved renal parenchyma 03/01/2024 5:28 PM EST [facility] Result Note Routine 03/01/2024 5:28 PM EST [facility] Tissue RIGHT KIDNEY STRUCTURE / Unknown 02/23/2024 9:20 AM EST 02/23/2024 9:32 AM EST Comment:Right Kidney Chio Riggs MD PATHOLOGY/CYTOLOGY ORDERABLES Performing Organization Address City/[facility]/ZIP Co de Phone Number [facility] [place] [address] * ABORH RECHECK (02/23/2024 8:34 AM EST) ABORH Recheck O NEGATIVE 02/23/2024 9:21 AM EST [facility] Blood VENOUS BLOOD SPECIMEN / Unknown Venipuncture / Unknown 02/23/2024 8:34 AM EST 02/23/2024 8:48 AM EST Chio Riggs MD BLOOD BANK LAB ORD ERABLES [facility] [place] [address] * Type and screen ([facility]/CGP/CHERISE) (02/23/2024 6:49 AM EST) ABORH Type O NEGATIVE 02/23/2024 7:44 AM EST [facility] PATIENT HISTORY Not Found 02/23/2024 7:44 AM EST [facility] Expires at 2359 on: 02/26/2024 02/23/2024 7:44 AM EST [facility] ANTIBODY SCREEN AUTOMATED Negative 02/23/2024 7:44 AM EST [facility] T&S only valid at [facility] 02/23/2024 7:44 AM EST [facility] Blood VENOUS BLOOD SPECIMEN / Unknown Venipuncture / Unknown 02/23/2024 6:49 AM EST 02/23/2024 6:53 AM EST Narrative [facility] - 02/23/2024 7:44 AM EST This Type and Screen result is only valid at the [facility] Chio Riggs MD BLOOD BANK LAB ORD ERABLES [facility] [place] [address] documented in this encounter Visit Diagnoses Not on filedocumented in this encounter Admitting Diagnoses Diagnosis Renal [...] Given 02/24/2024 12:44 AM EST 975 mg BUPivacaine (pf) (Marcaine) (2.5 mg/mL) 0.25% injection PRN, Starting on Fri02/23/24 at 1014, Until Fri02/23/24 at 1311, Intra-Operative (Intra-Procedure), Routine Given 02/23/2024 10:14 AM EST 30 mLs 19- Surgical Site docusate sodium (Colace) capsule 100 mg 100 mg, Oral, 2 TIMES DAILY, First dose on Fri02/23/24 at 2100, Until Discontinued, Routine Given 02/23/2024 9:09 PM EST 100 mg heparin (porcine) (5,000 units/1 mL) subcutaneous injection 5,000 Units 5,000 Units, Subcutaneous, EVERY 8 HOURS SCHEDULED, First dose on Fri02/23/24 at 2200, Until Discontinued, Routine Given 02/24/2024 2:06 PM EST 5,000 Units Given 02/24/2024 6:45 AM EST 5,000 Units Given 02/23/2024 9:09 PM EST 5,000 Units levothyroxine (Synthroid) tablet 150 mcg 150 mcg, [...] use ondansetron first., Recovery (Recovery-Hospital Unit) ondansetron (Zofran) tablet 4 mg 4 mg, [...] Webster RN)1800 (Given - Provider: Avery Serrano Jr. RN) 0044 (Given - Provider: Tanya Olivier, KONG)0645 (Given - Provider: Tanya Olivier RN)1159 (Given - Provider: Nita Rockwell RN) ceFAZolin (Ancef) 2 g vial attach to sodium chloride 0.9% 100 mL Mini-Bag Plus (COMPLETED) 2 g, Intravenous, CONSULTING SERVICES MANAGER TO O.R., 1 dose, On Fri02/23/24 at [...] injection 5,000 Units (COMPLETED) 5,000 Units, Subcutaneous, CONSULTING SERVICES MANAGER TO O.R., 1 dose, On Fri02/23/24 at 0630, Day of Surgery (Day of Procedure), Routine 0708 (Given - Provider: Letty Padgett, KONG) heparin (porcine) (5,000 units/1 mL) subcutaneous injection [...] am only) 0953 (Given - Provider: Nita Rockwell RN) sodium chloride 0.9 % (flush) (BD PosiFlush [...] PRN, Starting on Fri02/23/24 at 1945, Until Tu02/24/24 at 1733, Constipation, Administer if needed per [...] Routine 1121 (Given - Provider: Alanis Webster, RN) HYDROmorphone (Dilaudid) (0.2 mg/1 mL) injection syringe [...] PACU Recovery 1110 (Given - Provider: Alanis Webster, KONG) ondansetron (Zofran) tablet 4 mg(Linked Group 2) [...] Routine documented in this encounter Care Teams Family Dentist Relationship Specialty Start Date End Date Barbara, Susan Mobley APRN [address] [place] [address] PCP - General Internal Medicine 09/15/23 documented as of this encounter
--- OUTSIDE RECORDS SUMMARY | 2024-03-20 11:51 | XMS_ITS | Encounter Summary ---
Author Organization [facility] [place] [address] Care Team Providers Care Pipe Threading Machine Operator Name Role Phone Susan Jimenez APRN Primary Care Provider +1- [phone] Encounter Details Date Type Department Care Team (Late st Contact Info) Description 02/10/2023 Orders Only [place] [address] Fareed Combs CINEMA OPERATOR [facility] [place] [address] S/P gastric sleeve procedure; Disorder of iron metabolism Social History Tobacco Use Types Packs/Day Years [...] as of this encounter Miscellaneous Notes * Addendum Note - Fareed Combs APRN - 02/10/2023 8:00 AM ESTAddended by: FAREED COMBS on: 02/10/2023 08:33 AM Modules accepted: Orders documented in this encounter Plan of Treatment Upcoming Encounters Date Type Department Care Team (Late st Contact Info) Description 04/13/2024 3:20 PM EST Office Visit Dermatology at [place] [address] [place] [address] Felicitas Llanes MD [facility] DR [address] [address] 04/26/2024 4:00 PM EST Office Visit Nephrology [place] [address] Denia Xiao APRN [facility] [place] [address] documented as of this encounter Goals Goal Patient Goal Type Associated Problems Recent Progress Patient-Stated? Author movement Exercise No Arsh So Note: Try cardio chair exercises. Health Production Material Coordinator will send links to videos. Self monitoring [...] the pause (STOP, and urge surfing. Health Production Material Coordinator will mail hand-outs. 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
--- OUTSIDE RECORDS SUMMARY | 2024-03-20 11:51 | XMS_ITS | Encounter Summary ---
[place] [address] Care Team Providers Care Cable Layer Name Role Phone Susan Jimenez APRN Primary Care Provider +1- [phone] Encounter Details Date Type Department Care Team (Late st Contact Info) Description 02/17/2024 [place] [id number] Katie Aragon, RN Social History Tobacco Use Types Packs/Day Years Used Date Smoking Tobacco: Former Smokeless Tobacco: Never Comments:quit 1990 Alcohol Use Standard Drinks/Week Comments Yes 0 (1 standard drink = 0.6 oz pur e alcohol) <1 per day [facility] Inpatient Questions Answer Date Recorded Does Anyone [...] on file documented as of this encounter Progress Notes * Katie Aragon RN - 02/17/2024 3:35 PM EST Call returned to Tianna Betts [facility] lab, patient will complete Urine, CBC, CMP tomorrow. DOS: 02/23/24 documented in this encounter Miscellaneous Notes * Telephone Encounter - Katie Aragon RN - 02/17/2024 3:34 PM EST Copied from [facility] #[id number]. Topic: Specialty Dept CRMs - Generic Call >> Feb 17, 2024 3:08 PM Jackie Tse wrote: Specialist: Urology Relationship (if other than patient-full name): Tianna - [facility] Reason for Call: Tianna states that the patient is scheduled to come in tomorrow for labs but they can not do Type and Screen Future Surgery, [facility] [place] [place]), and they don't want the patient to come in for labs if she is going to need them done again. Tianna is requesting a call back today so they know what they should be doing for labs tomorrow. documented in this encounter Plan of Treatment Upcoming Encounters Date Type Department Care Team (Late st Contact Info) Description 04/13/2024 3:20 PM EST Office Visit Dermatology at [address] [address] Felicitas Llanes MD [facility] [address] [place] [address] 04/26/2024 4:00 PM EST Office Visit [place] [address] Denia Xiao APRN [facility] [place] [address] documented as of this encounter Goals Goal Patient Goal Type Associated Problems Recent Progress Patient-Stated? Author movement Exercise No Robbin-Arsh Bess Note: Try cardio chair exercises. Health All Round Butcher will send links to videos. Self monitoring [...] the pause (STOP, and urge surfing. [employer] All Round Butcher will mail hand-outs. documented as of this encounter Visit Diagnoses Not on filedocumented in this encounter Care Teams Cable Layer Relationship Specialty Start Date End Date Barbara, Susan Mobley APRN [address] [place] [address] PCP - General Internal Medicine 09/15/23 documented as of this encounter
--- OUTSIDE RECORDS SUMMARY | 2024-03-20 11:51 | XMS_ITS | Encounter Summary ---
Author Organization [facility] [place] [address] Care Team Providers Care Mental Telepathist Name Role Phone Susan Jimenez APRN Primary Care Provider [phone] Reason for Visit * Consultation (Routine) - Closed Specialty Diagnoses / Procedures Referred By Yury thornton Referred To Contact Nephrology Diagnoses Other specified abnormal findings of blood chemistry Abnormal finding of blood chemistry, unspecified BarbaraSusan diallo APRN [address] [place] [address] [facility] [address] [place] [id number] Referral ID Status Reason Start Date Expiration Date V isits Requested Visits Authorized [id number] Closed Consult, Test & Treat PCP Updated and/or Approved 09/15/2023 09/14/2024 6 6 Encounter Details Date Type Department Care Team (Late st Contact Info) Description 11/13/2023 10:00 AM EDT Office Visit [place] [address] Maximus Jeffery MD [facility] [place] [address] Denia Xiao APRN [facility] [place] [address] Serum creatinine raised; JACOB (acute kidney injury); Adverse effect of non-steroidal anti-inflammatory drug (NSAID), initial encounter; Primary hypertension; Chronic kidney disease, stage II (mild) Social History Tobacco Use Types Packs/Day Years [...] Sign Reading Time Taken Comments Blood Pressure 142/69 11/13/2023 10:12 AM EDT Pulse 43 11/13/2023 10:12 AM EDT Temperature - - Respiratory Rate - - Oxygen Saturation 100% 11/13/2023 10: 12 AM EDT Inhaled Oxygen Concentration - - Weight 101.4 kg (223 lb 9.6 oz) 11/13/2023 10:12 AM EDT Height 165.1 cm (5' 5) 11/13/2023 10:1 2 AM EDT Reported by Patient Body Mass Index 37.21 11/13/2023 10:12 AM EDT documented in this encounter Progress Notes * Denia Xiao APRN - 11/13/2023 10:00 AM EDTSummary: Nephrology consult Images from the original note were not included. Hypertension/Nephrology Consultation Liss Mosley [id number] 1965 ID: 58 y.o. old female seen at the request of Susan Jimenez APRN for evaluation of elevated creatinine. Past Medical History: Thyroid disease TESSA HTN- about 5 years Alcohol misuse Osteoporosis Obesity/insulin resistance History of Present Illness: Liss Mosley is a 58 y.o. female being evaluated for a rise in creatinine. Patient reports that she has had problems with dehydration, passes out and gets dizzy. Has had to have fluid replacement in the past. At that time had an JACOB, labs recovered but not to baseline. Has had gastric sleevesx (August 2022) in the past. Lost about 45 pounds. No DM. Creatinine/GFR trends over time: Creatinine Date Value 11/13/2023 0.80 mg/dL 02/03/2023 0.84 mg/dL 10/09/2022 0.74 mg/dL 08/19/2022 0.82 mg/dL 12/24/2021 0.8 04/20/2021 1 (External Lab) 05/12/2018 0.78 mg/dL Est Glomerular Filtration Rate Date Value 02/03/2023 80 mL/min/1.73 m?? 10/09/2022 93 mL/min/1.73 m?? 08/19/2022 82 mL/min/1.73 m?? 12/24/2021 85.35 04/20/2021 57.15 (External Lab) 05/12/2018 86 mL/min/1.73 m?? Sodium Date Value 11/13/2023 135 mMol/L 02/03/2023 136 mmol/L 10/09/2022 134 mmol/L (L) 08/19/2022 138 mmol/L 04/20/2021 140 (External Lab) 05/12/2018 140 mmol/L Potassium Date Value 11/13/2023 3.8 mMol/L 02/03/2023 5.0 mmol/L 10/09/2022 4.7 mmol/L 08/19/2022 4.3 mmol/L 04/20/2021 4.2 (External Lab) 05/12/2018 4.4 mmol/L Risk factors for CKD: Diabetes: N/A Retinopathy: No Neuropathy: Sometimes in hands, positional. HTN: diagnosed in 5 years ago- pretty well controlled. Heart or vascular disease: No Smokin pack year- quit 34 years ago. TESSA: TESSA with CPAP NSAIDS: used a lot of ibuprofen and naproxen in the past related to back pain- has been about a year. Herbal Supplements: used to, no longer. Autoimmune disease: thyroid disease, allopecia UTI: not recent, had them frequently in her 20-30s. Stones: No Gestational Age: Yes Recent / Recurrent Infections: sinus infections earlier in the Spring (abx and netti pot, allergies). Energy level- better since weight loss. Sleep- always. Napping- love to. Lightheadedness or dizziness- happens in bunches a few times within a month and then goes away for a month, wonders if correlates with alcohol consumption. Headaches- no. SOB, no some SEARS. Chest pain/pressure- No, occasional heart burn. Appetite- good. Hydration- about 3 liters day. Change in sense of taste- no. N/V/D- changes since sleeve sx, some diarrhea- constipation. Changes in urination- No. Voiding several times a day- yes. Nocturia- 0x. Bloody or foamy urine- NO. Dysuria- no. Able to empty bladder- No, if sneezeswill become incontinent. Muscle/joint pain- hands, ankles, hip, ankles chronic. Muscle cramps- yes,restless legs-no. Unusual bleeding or bruising- no. Pruritus- some eczema. Swelling- sometimes in legs/feet. Mood and memory- memory sucks. Thinking clearly. Some lower back pain- intermittent related to positioning. Home BP- checks it at home only when symptomatic; tends to be low when feeling dizzy (80-90/49-50). Medications: Outpatient Encounter Medications as of 11/13/2023 Medication Sig Dispense Refill multivit-min/iron/folic acid/K (BARIATRIC MULTIVITAMINS ORAL) Take 1 tablet by mouth daily. amoxicillin (Amoxil) 500 mg capsule TAKE FOUR CAPSULES BY MOUTH 1 HOUR PRIOR TO APPOINTMENT Calcium Citrate (Calcitrate) 250 mg calcium tablet Take by mouth. nystatin (MYCOSTATIN) 100,000 unit/gram Powder Apply topically 4 times daily. 30 g 0 acetaminophen (Tylenol) 325 mg [...] times daily for rosacea 118 mL 3 [DISCONTINUED] Echinacea 400 mg capsule Take by mouth. [DISCONTINUED] metFORMIN XR (Glucophage XR) 500 mg ER 24 hr tablet daily. No facility-administered encounter medications on file as of 11/13/2023. Allergies / ADRs: Allergies Allergen Reactions Adhesive Tape CIS - Localized Reaction Citalopram Other (See Comments) Other reaction(s): FATIGUE Ketorolac Other (See Comments) Mold Rash Adhesive Rash Other reaction(s): SKIN RASH Family History: Brother had a tumor on his kidney that was removed. Dad tumor between kidney and pancreas Mom with diet-controlled DM. Social History: Former smoker Drinks alcohol maybe once a week, unless on vacation. During the pandemic would have a glass of wine during the day. Takes some marijuana edibles to help with sleep, does not smoke it. No other recreational drug use. Review of Systems: System Abnormalities Constitutional No fevers, chills, or unintentional weight loss. Eye No visual changes, eye pain, or dry eye. ENT No headaches, oral mucosa dryness, nose bleeds. No throat pain or trouble swallowing. CV No leg swelling. No chest pain. Resp No shortness of breath. No cough. No difficulty breathing lying flat. GI No nausea, vomiting, change in bowel habits or abdominal pain. No heart burn or reflux. No change in urine output. No pain urinating or blood in urine. Skin No rash or itchy skin. No non-healing skin sores. Allergy Endocrine No polydipsia, polyuria, or polyphagia. Neurologic No weakness. No numbness or tingling. Musculoskeletal No joint pain/swelling. No muscle pain. No leg cramps. Lymph Psych No recent issues with mood/memory. Y N All other systems reviewed and negative. X Physical Examination: Vitals: 11/13/23 1012 BP: 142/69 BP Location (NBP): Left arm Patient Position: Sitting BP Cuff Sizes: Large Adult (32-43 cm) Pulse: (!) 43 SpO2: 100% Weight: 101.4 kg (223 lb 9.6 oz) Height: 165.1 cm (5' 5) General: Arrived ambulatory. Alert, comfortable. Cooperative with exam. HEENT: Sclera white. Mucous membranes moist. CV: S1 and S2. HR regular. JVP not elevated. Resp: Lungs clear with no crackles or wheezes. Respirations non labored. Abd: Soft. + BS. : No CVA tenderness. Ext: Warm. No cyanosis. No edema. Skin: No rash. Neuro: Intact. No asterixis. Psych: Mood appropriate. Labs: Recent Results (from the past 72 hour(s)) Albumin Level Result Value Ref Range Albumin 4.4 3.2 - 5.2 g/dL Basic Metabolic Panel Result Value Ref Range Glucose 90 65 - 99 mg/dL Blood Urea Nitrogen 18 8 - 18 mg/dL Creatinine 0.80 0.70 - 1.20 mg/dL Sodium 135 135 - 145 mMol/L Potassium 3.8 3.5 - 5.0 mMol/L Chloride 97 (L) 98 - 107 mMol/L Carbon Dioxide 28 22 - 31 mMol/L Anion Gap 10 5 - 15 mMol/L Calcium 9.4 8.5 - 10.5 mg/dL Est Glomerular Filtration Rate - Female 84 mL/min/1.73 m?? Fasting Status Yes CBC (with Diff) Result Value Ref Range White Blood Cell 8.17 4.00 - 9.50 x10(3)/mcL Red Blood Cell 4.01 4.00 - 5.21 x10(6)/mcL Hemoglobin 12.5 11.7 - 15.5 g/dL Hematocrit 38.5 35.7 - 45.8 % Mean Cell Volume 96.0 (H) 82.6 - 94.4 fL Mean Cell Hemoglobin 31.2 27.1 - 32.0 pg Mean Cell Hemoglobin Concentration 32.5 31.7 - 35.0 g/dL Platelet 246 145 - 357 x10(3)/mcL Mean Platelet Volume 9.3 7.6 - 12.9 fL RDW Standard Deviation 49.3 (H) 37.0 - 46.0 fL RDW coefficient of variation 14.0 11.5 - 14.1 % NRBC% auto 0.0 % NRBC Absolute 0.00 0.00 - 0.00 x10(3)/mcL Neutrophil % 60.2 % Neutrophil Absolute 4.91 1.70 - 6.10 x10(3)/mcL Lymph % 32.4 % Lymph Absolute 2.65 0.90 - 3.20 x10(3)/mcL Monocyte % 4.9 % Monocyte Absolute 0.40 0.30 - 0.90 x10(3)/mcL Eos % 1.8 % Eos Absolute 0.15 0.00 - 0.40 x10(3)/mcL Basophil % 0.5 % Baso Absolute 0.04 0.00 - 0.10 x10(3)/mcL Immature Gran % 0.2 % Immature Gran Absolute 0.02 0.00 - 0.04 x10(3)/mcL Phosphorus Result Value Ref Range Phosphorus 4.1 2.5 - 4.5 mg/dL Magnesium Result Value Ref Range Magnesium 0.92 0.69 - 1.07 mMol/L PTH Result Value Ref Range Parathyroid Hormone 36 15 - 65 pg/mL Urinalysis with reflex Culture Specimen: Urine, Clean Catch Result Value Ref Range Glucose, Urine Dipstick Negative Negative Protein, Urine Dipstick Negative Negative Bilirubin, Urine Dipstick Negative Negative Urobilinogen, Urine Dipstick Normal Normal, 0.2 mg/dL, 1.0 mg/dL pH, Urine (dipstick) 7.5 5.0 - 8.0 Blood, Urine Dipstick Negative Negative Ketone, Urine Dipstick Negative Negative Nitrite, Urine Dipstick Negative Negative Leukocytes, Urine Dipstick Negative Negative Specific Todd Urine Automated 1.011 1.005 - 1.030 Appearance, Urine Dipstick Clear Clear Color, Urine Dipstick Yellow Yellow, Dark Yellow U Albumin/Cre Ratio Result Value Ref Range Albumin, Urine <3.0 mg/L Creatinine, Urine 34 mg/dL Albumin / Creatinine Ratio, Urine Protein/Creatinine Ratio, urine Result Value Ref Range Protein, Urine <4 0 - 12 mg/dL Creatinine, Urine 34 mg/dL Protein / Creatinine Ratio, Urine <0.1 ratio A/P: 58 y.o. old female seen at the request of BHAVNA Soliman. CKD Stage 2 with GFR of 84 today. Review of trends in renal function show has a stable trend. Risk factors for CKD include HTN, prior NSAID use. Hematuria absent. Proteinuria absent, PCR <0.1. Will order ultrasound to assess size and shape of kidneys as well as assess for obstruction. Risk factors for worsening renal function reviewed. Discussed importance of good blood pressure control, good blood sugar control, adequate hydration, and avoidance of NSAIDs. No clinical indication for PROFESSOR OF PSYCHOLOGY. HTN - BP in clinic today mildly elevated. Goal <130/80. Currently only taking lisinopril 10mg daily, this could be increased, if needed. Encouraged low-salt diet. Diabetes - Not present. Anemia - HGB 12.5 without significant anemia related to chronic disease. Iron stores not assessed today. No indication for GENI at this time. KDIGO Hgb goal in CKD is 10.0-11.5g/dL. Ferritin >100ng/dl, TSAT >20% Bone and mineral - Calcium, phosphorus and PTH levels are within normal limits. Not currently on any bone mineral medications. KDIGO PTH goals in CKD: Stage 3 - PTH 35-70pg/ml Stage 4 - PTH 70-110pg/ml Stage 5 - PTH 150-300pg/ml Acid-base - Metabolic acidosis is not present. Electrolytes - Potassium and sodium are in range. Nutrition - Normal albumin suggests adequate protein intake. Transplant/access referral - Not indicated. Return to clinic - Will return in approximately 3 months for follow-up. Patient encouraged to reachout with any questions or concerns. >the total time spent [id number] AND total time the provider spent counseling was 60 minutes. Denia Xiao APRN Nephrology-Hypertension [phone] Pager # [phone] Please CC to: Susan Jimenez APRN [email or web address] * Maximus Jeffery MD - 11/13/2023 10:00 AM EDT This patient was seen in conjunction with Heather Xiao APRN. I performed the majority of this shared visit based on medical decision making. MAXIMUS JEFFERY MD 58 year old woman with hypertension, prior NSAID use, obesity s/p gastric sleeve surgery. Back painwhich prompted NSAID use has resolved with weight loss. NAD, heart/lung exam normal, no edema. Likely hypertension and NSAIDS. BP mildly elevated today. Cr has normalized off NSAIDS. Hgb in target range and she is without proteinuria. - renal US - increase lisinopril as needed - avoid NSAIDS - f/u 3 months documented in this encounter Plan of Treatment Upcoming Encounters Date Type Department Care Team (Late st Contact Info) Description 04/13/2024 3:20 PM EST Office Visit Dermatology at [place] [address] [place] [address] Felicitas Llanes MD [facility] [address]DE[address] [place] [address] 04/26/2024 4:00 PM EST Office Visit [place] [address] Denia Xiao APRN [facility] [place] [address] Scheduled Orders Name Type Priority Associated Diagnoses Orde r Schedule US Retroperitoneal Complete Imaging Routine Serum creatinine raised Expected: 11/13/2023, Expires: 05/15/2025 documented as of this encounter Goals Goal Patient Goal Type Associated Problems Recent Progress Patient-Stated? Author movement Exercise No Arsh So Note: Try cardio chair exercises. Health Manager Utilization Review will send links to videos. Self monitoring [...] updated 06.10.22 Lifestyle No Arlin Mac I, RD Note: Continue to abstain from alcohol, [...] the pause (STOP, and urge surfing. Health Manager Utilization Review will mail hand-outs. documented as of this encounter Results * Cystatin C (11/13/2023 11:13 AM EDT) Cystatin C July 1.10 0.67 - 1.21 mg/L 11/14/2023 7:08 PM EDT [facility] Comment: Cystatin C Egfr July 64 >60 mL/min/BSA 11/14/2023 7:08 PM EDT [facility] Comment: Estimated GFR calculated using the CKD-EPI Cystatin C (2012) equation. ADDITIONAL INFORMATION Cystatin C-based eGFR may differ substantially from creatinine- based eGFR in patients with abnormal muscle mass or acutely changing renal function. ??Please interpret together with relevant clinical features. On 08/24/2020 the cystatin C assay method changed. Cystatin C eGFR results > 50 ml/min/1.73m2 are approximately 10% lower with the new assay. Blood VENOUS BLOOD SPECIMEN / Unknown Venipuncture / Unknown 11/13/2023 11:13 AM EDT 11/13/2023 11:13 AM EDT Narrative [facility] - 11/14/2023 7:08 PM EDT Test Performed by: [place] [address] Office Administrative Assistant: Myesha Holt Ph.D.; CLIA# [id number] Denia Xiao APRN LAB SEND OUT OR DERABLES [facility] [address] [place] [address] * Protein/Creatinine Ratio, urine (11/13/2023 11:13 AM EDT) Protein, Urine <4 0 - 12 mg/dL 11/13/2023 12:11 PM EDT [facility] Creatinine, Urine 34 mg/dL 11/13/2023 12:11 PM EDT [facility] Protein / Creatinine Ratio, Urine <0.1 ratio 11/13/2023 12:11 PM EDT [facility] Urine URINE SPECIMEN / Unknown Non Blood Collection / Unknown 11/13/2023 11:13 AM EDT 11/13/2023 11:13 AM EDT Denia Xiao APRN URINE ORDERABLE S [facility] [place] [address] * U Albumin/Cre Ratio (11/13/2023 11:13 AM EDT) Albumin, Urine <3.0 mg/L 11/13/2023 12:11 PM EDT [facility] Creatinine, Urine 34 mg/dL 11/13/2023 12:11 PM EDT [facility] Albumin / Creatinine Ratio, Urine 11/13/2023 12:11 PM EDT [facility] Comment:Not Calculated. Urine URINE SPECIMEN / Unknown Non Blood Collection / Unknown 11/13/2023 11:13 AM EDT 11/13/2023 11:13 AM EDT Denia Xiao APRN URINE ORDERABLE S Performing Organization Address City/[facility]/ZIP Co de Phone Number [facility] [place] [address] * Vitamin D, 25-Hydroxy (11/13/2023 11:13 AM EDT) Vitamin D Total 25 OH 44 21 - 100 ng/ml 11/14/2023 3:46 PM EDT [facility] Vitamin D Total 25 OH Interp Sufficient 11/14/2023 3:46 PM EDT [facility] Blood VENOUS BLOOD SPECIMEN / Unknown Venipuncture / Unknown 11/13/2023 11:13 AM EDT 11/13/2023 11:13 AM EDT Denia Xiao APRN CHEMISTRY ORDER LOLITA Performing Organization Address City/[facility]/ZIP Co de Phone Number [facility] [place] [address] * Urinalysis with reflex Culture (11/13/2023 11:13 AM EDT) Glucose, Urine Dipstick Negative Negative 11/13/2023 11:47 AM EDT [facility] Protein, Urine Dipstick Negative Negative 11/13/2023 11:47 AM EDT [facility] Bilirubin, Urine Dipstick Negative Negative 11/13/2023 11:47 AM EDT [facility] Comment:Clinical correlation required for positive Urine Bilirubin results as false positive may occur with some drugs and drug related products. If a false positive is suspected a serum total bilirubin should be considered if clinically indicated. Urobilinogen, Urine Dipstick Normal Normal, 0.2 mg/dL, 1.0 mg/dL 11/13/2023 11:47 AM [facility] pH, Urine (dipstick) 7.5 5.0 - 8.0 11/13/2023 11:47 AM [facility] Blood, Urine Dipstick Negative Negative 11/13/2023 11:47 AM [facility] Ketone, Urine Dipstick Negative Negative 11/13/2023 11:47 AM [facility] Nitrite, Urine Dipstick Negative Negative 11/13/2023 11:47 AM [facility] Leukocytes, Urine Dipstick Negative Negative 11/13/2023 11:47 AM [facility] Specific Todd Urine Automated 1.011 1.005 - 1.030 11/13/2023 11:47 AM [facility] Appearance, Urine Dipstick Clear Clear 11/13/2023 11:47 AM [facility] Color, Urine Dipstick Yellow Yellow, Dark Yellow 11/13/2023 11:47 AM [facility] Urine URINE SPECIMEN OBTAINED BY CLEAN CATCH PROCEDURE / Unknown Non Blood Collection / Unknown 11/13/2023 11:13 AM EDT 11/13/2023 11:13 AM EDT Denia Xiao APRN URINE ORDERABLE S [facility] [place] [place] [address] * PTH (11/13/2023 11:13 AM EDT) Parathyroid Hormone 36 15 - 65 pg/mL 11/13/2023 11:52 AM T [facility] Blood VENOUS BLOOD SPECIMEN / Unknown Venipuncture / Unknown 11/13/2023 11:13 AM EDT 11/13/2023 11:13 AM EDT Denia Xiao APRN CHEMISTRY ORDER LOLITA Performing Organization Address City/[facility]/ZIP Co de Phone Number [facility] [place] [address] * Magnesium (11/13/2023 11:13 AM EDT) Magnesium 0.92 0.69 - 1.07 mMol/L 11/13/2023 11:56 AM EDT [facility] Blood VENOUS BLOOD SPECIMEN / Unknown Venipuncture / Unknown 11/13/2023 11:13 AM EDT 11/13/2023 11:13 AM EDT Denia Xiao APRN CHEMISTRY ORDER LOLITA Performing Organization Address City/[facility]/ZIP Co de Phone Number [facility] [place] [place] [address] * Phosphorus (11/13/2023 11:13 AM EDT) Phosphorus 4.1 2.5 - 4.5 mg/dL 11/13/2023 11:56 AM EDT [facility] Blood VENOUS BLOOD SPECIMEN / Unknown Venipuncture / Unknown 11/13/2023 11:13 AM EDT 11/13/2023 11:13 AM EDT Denia Huttonzelarielle MENDOZAN CHEMISTRY ORDER LOLITA [facility] [place] [address] * (ABNORMAL) CBC (with Diff) (11/13/2023 11:13 AM EDT) White Blood Cell 8.17 4.00 - 9.50 x10(3)/mc L 11/13/2023 11:33 AM EDT [facility] Red Blood Cell 4.01 4.00 - 5.21 x10(6)/mc L 11/13/2023 11:33 AM [facility] Hemoglobin 12.5 11.7 - 15.5 g/dL 11/13/2023 11:33 AM [facility] Hematocrit 38.5 35.7 - 45.8 % 11/13/2023 11:33 AM [facility] Mean Cell Volume 96.0(H) 82.6 - 94.4 fL 11/13/2023 11:33 AM [facility] Mean Cell Hemoglobin 31.2 27.1 - 32.0 pg 11/13/2023 11:33 AM [facility] Mean Cell Hemoglobin Concentration 32.5 31.7 - 35.0 g/dL 11/13/2023 11:33 AM [facility] Platelet 246 145 - 357 x10(3)/mc L 11/13/2023 11:33 AM [facility] Mean Platelet Volume 9.3 7.6 - 12.9 fL 11/13/2023 11:33 AM [facility] RDW Standard Deviation 49.3(H) 37.0 - 46.0 fL 11/13/2023 11:33 AM [facility] RDW coefficient of variation 14.0 11.5 - 14.1 % 11/13/2023 11:33 AM [facility] NRBC% auto 0.0 % 11/13/2023 11:33 AM [facility] NRBC Absolute 0.00 0.00 - 0.00 x10(3)/mc L 11/13/2023 11:33 AM [facility] Neutrophil % 60.2 % 11/13/2023 11:33 AM [facility] Neutrophil Absolute (ANC) - Automated 4.91 1.70 - 6.10 x10(3)/mc L 11/13/2023 11:33 AM [facility] Lymph % 32.4 % 11/13/2023 11:33 AM [facility] Lymph Absolute 2.65 0.90 - 3.20 x10(3)/mc L 11/13/2023 11:33 AM EDT [facility] Monocyte % 4.9 % 11/13/2023 11:33 AM EDT [facility] Monocyte Absolute 0.40 0.30 - 0.90 x10(3)/mc L 11/13/2023 11:33 AM EDT [facility] Eos % 1.8 % 11/13/2023 11:33 AM EDT [facility] Eos Absolute 0.15 0.00 - 0.40 x10(3)/mc L 11/13/2023 11:33 AM EDT [facility] Basophil % 0.5 % 11/13/2023 11:33 AM EDT [facility] Baso Absolute 0.04 0.00 - 0.10 x10(3)/mc L 11/13/2023 11:33 AM EDT [facility] Immature Gran % 0.2 % 11:33 AM EDT [facility] Immature Gran Absolute 0.02 0.00 - 0.04 x10(3)/mc L 11/13/2023 11:33 AM EDT [facility] Blood VENOUS BLOOD SPECIMEN / Unknown Venipuncture / Unknown 11/13/2023 11:13 AM EDT 11/13/2023 11:13 AM EDT Denia Xiao APRN HEMATOLOGY [place] YOU [facility] [place] [place] [address] * (ABNORMAL) Basic Metabolic Panel (11/13/2023 11:13 AM EDT) Glucose 90 65 - 99 mg/dL 11/13/2023 11:56 AM EDT [facility] Comment: Fasting Glucose Interpretive Criteria: Normal: 65-99 mg/dL ?? Prediabetes: 100-125 mg/dL ?? Consistent with Diabetes Mellitus: > or = 126 mg/dL ?? Classification and Diagnosis of Diabetes: Standards of Care in Diabetes - 2022. Diabetes Care 202; 46:S19. Fasting is defined as no caloric intake for at least 8 hours. Blood Urea Nitrogen 18 8 - 18 mg/dL 11/13/2023 11:56 AM [facility] Creatinine 0.80 0.70 - 1.20 mg/dL 11/13/2023 11:56 AM [facility] Sodium 135 135 - 145 mMol/L 11/13/2023 11:56 AM [facility] Potassium 3.8 3.5 - 5.0 mMol/L 11/13/2023 11:56 AM [facility] Chloride 97(L) 98 - 107 mMol/L 11/13/2023 11:56 AM [facility] Carbon Dioxide 28 22 - 31 mMol/L 11/13/2023 11:56 AM [facility] Anion Gap 10 5 - 15 mMol/L 11/13/2023 11:56 AM [facility] Calcium 9.4 8.5 - 10.5 mg/dL 11/13/2023 11:56 AM [facility] Est Glomerular Filtration Rate - Female 84 mL/min/1. 73 m?? 11/13/2023 11:56 AM [facility] Comment: This [...] eGFR. Link: eGFR Calculator [employer] Fasting Status Yes 11/13/2023 11:56 AM [facility] Blood VENOUS BLOOD SPECIMEN / Unknown Venipuncture / Unknown 11/13/2023 11:13 AM EDT 11/13/2023 11:13 AM EDT Denia Xiao APRN CHEMISTRY ORDER LOLITA [facility] [place] [address] * Albumin Level (11/13/2023 11:13 AM EDT) Albumin 4.4 3.2 - 5.2 g/dL 11/13/2023 11:56 AM EDT [facility] Blood VENOUS BLOOD SPECIMEN / Unknown Venipuncture / Unknown 11/13/2023 11:13 AM EDT 11/13/2023 11:13 AM EDT Denia Xiao APRN CHEMISTRY ORDER LOLITA Performing Organization Address City/[facility]/ZIP Co de Phone Number [facility] [place] [address] documented in this encounter Visit Diagnoses Diagnosis Serum creatinine raised Other nonspecific findings on examination of blood JACOB (acute kidney injury) Acute kidney failure, unspecified Adverse effect of non-steroidal anti-inflammatory drug (NSAID), initial encounter Primary hypertension Unspecified essential hypertension Chronic kidney disease, stage II (mild) Chronic kidney disease, Stage II (mild) documented in this encounter Care Teams Mental Telepathist Relationship Specialty Start Date End Date Barbara, Susan Mobley APRN [address] [facility] [address] [place] [address] PCP - General Internal Medicine 09/15/23 documented as of this encounter
--- OUTSIDE RECORDS SUMMARY | 2024-03-20 11:51 | XMS_ITS | Encounter Summary ---
Author Organization [facility] [place] [address] Care Team Providers Care Margin Clerk Name Role Phone Barbara, Susan Mobley APRN Primary Care Provider +1- [phone] Reason for Visit * Auth/Cert (Routine) Specialty Diagnoses / Procedures Referred By Yury thornton Referred To Contact Diagnoses Right renal mass TO MD Procedures PRO LAP, RADICAL NEPHRECTOMY @LAPAROSCOPY, RADICAL NEPHRECTOMY (WRVU .) Case Riggs MD [facility] [place] [address] [facility] Referral ID Status Reason Start Date Expiration Date Visits Re quested Visits Authorized [id number] 1 1 Encounter Details Date Type Department Care Team (Late st Contact Info) Description 02/23/2024 7:28 AM EST Anesthesia Event [place] [address] Gordo Perry MD [facility] [place] [address] Anesthesia Record Procedure Summary Procedure Name Responsible Anesthesiologist Anesthesia Start Time Anesthesia Stop Time @LAPAROSCOPY, RADICAL NEPHRECTOMY (WRVU 25.06) (Right: Flank) Gordo Perry MD 02/23/24 0728 02/23/24 1033 Events Date Time Event Comment 02/23/2024 0714 0728 AN Verify 0728 Start 0730 An Start Data 0734 An Induction 0737 An Intubation 0738 Anesthesia Ready 0858 Break/Relief In I assumed ca re for Break Relief before which we: 1. Identified the patient 2. Identified the responsible provider(s) 3. Reviewed the pertinent medical history 4. Discussed the surgical plan and course 5. Reviewed intra-op anesthesia management and issues during anesthesia 6. Set expectations for the relief (and/or post-procedure) period 7. Allowed opportunity for questions and acknowledgement of understanding Lucho Shaikh CRNA 09 Break/Relief Out 09 Break/Relief In I assumed ca re for Break Relief before which we: 1. Identified the patient 2. Identified the responsible provider(s) 3. Reviewed the pertinent medical history 4. Discussed the surgical plan and course 5. Reviewed intra-op anesthesia management and issues during anesthesia 6. Set expectations for the relief (and/or post-procedure) period 7. Allowed opportunity for questions and acknowledgement of understanding Kat Perry MD 0918 Break/Relief Out 1022 Extubation/LMA Out 1027 an stop data 1033 Recovery or ICU Handoff Millie ent care was transferred to the destination unit staff after review of the patient's medical history, current anesthetic/surgical status and plan, according to the Provider Handoff Checklist. 1033 Stop Meds Name Total fentaNYL 100 mcg lidocaine IV 50 mg propofoL 200 mg propofol INF 565.18 mg rocuronium 110 mg glycopyrrolate 0.4 mg sugammadex 200 mg ePHEDrine 15 mg dexAMETHasone 4 mg ondansetron 4 mg ceFAZolin (Ancef) 2 g vial a ttach to sodium chloride 0.9% 100 mL Mini-Bag Plus 2 g dexmedeTOMIDine 4 mcg/mL 28 mcg PHENYLephrine INF 820 mcg HYDROmorphone 0.5 mg lactated ringers infusion 800 mL * Agents Name O2 * Blood No blood administrations on file. Lines, Drains, and Airways Type Details Placement Removal Incision 02/23/24; 0817; abdo men; laparoscopic punctures (specify); 4 Trocar Sites 02/23/24 08 by Glo Wright RN Incision 10/08/22; 1531; abdo men; laparoscopic punctures (specify) (Multiple Trocar Sites.); 02/23/24; 0828 10/08/22 1531 by Meredith Gupta RN 02/23/24 0828 by Glo Wright RN PIV 02/23/24; 0654; [id number]-vnpbbs catheter system; 20 gauge; median cubital vein (antecubital fossa), right; Anatomical Landmarks; US Not Used; KONG Saenz; distraction, tolerated well, appears comfortable; no longer indicated, removed per policy/procedure, catheter/device intact; 02/24/24; 1520 02/23/24 0654 by Letty Reeves RN 02/24/24 1520 by Nita Rockwell RN PIV 02/23/24; 0738; 18 g auge; brachial vein, left; Anatomical Landmarks; QIAN Ng; no longer indicated, removed per policy/procedure, catheter/device intact; 02/24/24; 1520 02/23/24 0738 by Manolo Ng CRNA 02/24/24 1520 by Niat Rockwell RN ETT Mask Ventilation: Ea kartik (1); ETT Type: Cuffed, Oral; ETT Size: 7.5 mm; Mac Blade: 3; Notes: Asleep, Pre-O2, Stylette; Attempts: 1; Laryngoscopy Grade: 1; ETT Placement Verified By: Auscultation, Capnometry, Visual; Secured at Teeth: 22 cm; Inserted by: QIAN Ng; Removal Date: 02/23/24; Removal Time: 1022 02/23/24 0742 by Manolo Ng CRNA 02/23/24 1022 by Manolo Ng CRNA Urethral Catheter 02/23/24; 0808; Need for intraoperative urine output monitoring, Physician order, Surgery longer than 2 hours, Urologic surgery; indwelling double lumen catheter; latex; 14; inserted at [facility]; 1; 10; 10; none; drainage bag; 02/24/24; 0654 02/23/24 0808 by Glo Wright RN 02/24/24 0654 by Tanya Olivier RN documented in this encounter Social History Tobacco Use Types Packs/Day Years Used Date Smoking Tobacco: Former Smokeless Tobacco: Never Comments:quit 1990 Alcohol Use Standard Drinks/Week Comments Yes 0 (1 standard drink = 0.6 oz pur e alcohol) <1 per day [facility] Utilities Answer Date Recorded In the [...] were you homeless or living in a senior care (including now)? No 02/24/2024 DH IPV Inpatient [...] on file documented as of this encounter OR Notes * Anesthesia Postprocedure Evaluation - Gordo Perry MD - 02/23/2024 10:47 AM EST Department of Anesthesiology Post-procedure Note Patient: Liss Mosley Procedure Summary Date: 02/23/24 Room / Location: [address] MAIN OR Anesthesia Start: 727 Anesthesia Stop: 1032 Procedure: @LAPAROSCOPY, RADICAL NEPHRECTOMY (WRVU 25.06) (Right: Flank) Diagnosis: (Adrenal Mass) Surgeons: Case Riggs MD Responsible Provider: Gordo Perry MD Anesthesia Type: general ASA Status: 2 All Anesthesia Providers: Anesthesiologist: Gordo Perry MD SKEIN YARN DRIER: Mnaolo Ng CRNA Vitals Value Taken Time BP 127/73 02/23/24 1300 Temp 36 ??C (96.8 ??F) 02/23/24 1200 Pulse 64 02/23/24 1200 Resp 11 02/23/24 1200 SpO2 98 % 02/23/24 1303 Pain Level 3 02/23/24 1200 Vitals shown include unfiled device data. Patient Location: PACU/[facility] Level of Consciousness: Conscious but Sleepy Pain Management: Satisfactory Analgesia PONV: None Cardiovascular Status: Hemodynamically Stable Respiratory Status: Stable Respiratory Status and Supplemental O2 (NC or FM) Postoperative Fluid Status: Intravascular EUvolemia Possible Anesthetic Complications: NONE apparent at time of evaluation Final Primary Anesthesia Type: General (The anesthetic type performed was the same as planned.) Comments: * Anesthesia Preprocedure Evaluation - Gordo Perry MD - 02/21/2024 8:36 PM EST Pre-Anesthesia Evaluation for: Liss Mosley a 58 y.o. female. Procedure(s): @LAPAROSCOPY, RADICAL NEPHRECTOMY (VU .06) Patient Active Problem List Diagnosis Date Noted Chronic kidney disease, stage II (mild) 11/14/2023 Acute dehydration 11/11/2023 Amenorrhea 11/11/2023 Blood urea abnormal 11/11/2023 Cardiac murmur, unspecified 11/11/2023 Decreased renal function 11/11/2023 History of vein [...] 11/08/2015 Hypothyroidism 10/13/2012 Fracture of pelvis 02/28/1996 Past Medical History: Diagnosis Date Allergic rhinitis Past Surgical History: Procedure Laterality Date SECTION 1988 PRO LAPAROSCOPY, SURG/GASTRIC RESTRICTIVE PROC, LONGITUDINAL GASTRECTOMY N/A 10/08/2022 @LAPAROSCOPY, SURG/GASTRIC RESTRICTIVE PROC, LONGITUDINAL GASTRECTOMY (WRVU 20.38) performed by Annabella Borrero MD at [facility] MAIN OR PRO UPPER GI ENDOSCOPY, DIAGNOSTIC N/A 10/08/2022 EGD, UPPER GI ENDOSCOPY (WRVU 2.09) performed by Annabella Borrero MD at [facility] MAIN OR Social History Tobacco Use Smoking status: Former Smokeless tobacco: Never Tobacco comments: quit 1990 Substance Use Topics Alcohol use: Yes Comment: <1 per day Social History Substance and Sexual Activity Drug Use Not Currently Allergies Allergen Reactions Adhesive Tape CIS - Localized Reaction Citalopram Other (See Comments) Other reaction(s): FATIGUE Ketorolac Other (See Comments) Mold Rash Adhesive Rash Other reaction(s): SKIN RASH Medications: MAR and/or home medications have been reviewed. Physical Exam: Preprocedure Vitals Current as of 02/21/242035 No BP, pulse, respiration, SpO2, or temperature recorded. Height: Weight: BMI: IBW: Airway Assessment: Mallampati: II TM distance: >3 FB Neck ROM: full Cardiovascular Assessment: Rhythm: regular Rate: normal Pulmonary Assessment: unlabored breathing Dental Assessment: - normal exam Misc Assessment: Patient is wearing No contact(s). IV access: Peripheral line Last Filed Perioperative Cognitive Screening None Anesthesia Plan: ASA 2 general, with a(n) intravenous induction Region - Other Informed Consent: Anesthetic plan and risks discussed with patient and mother. Attending NOTE Brief HPI: 58 y.o. with RIGHT renal mass to OR for lap radical nephrectomy Patient Active Problem List Diagnosis Ning's disease TESSA (obstructive sleep apnea) on CPAP OA (osteoarthritis) BMI 35 Insulin resistance Hx of Alcohol abuse, infrequent use now Hx of Major depressive disorder Essential hypertension H/O cardiac murmur Hypothyroidism Gastric bypass status for obesity Chronic kidney disease, stage II (mild) BP Readings from Last 3 Encounters: 12/12/23 134/76 11/13/23 142/69 02/03/23 130/67 METS:>4 Cardiac Symptoms: denies LABS: Lab Results Component Value Date HGB 12.5 11/13/2023 HGB 12.6 02/03/2023 PLATELET 246 11/13/2023 PLATELET 275 02/03/2023 NA 135 11/13/2023 NA 136 02/03/2023 K 3.8 11/13/2023 K 5.0 02/03/2023 CREATININE 0.80 11/13/2023 CREATININE 0.84 02/03/2023 Type and Screen: No results found for: ABORH Past anesthetic problems: none Previous airway notes (on eDH): Mask Ventilation: Adjunct (2); ETT Type: Cuffed; ETT Size: 7 mm; Mac Blade: 4; Notes: Asleep, Pre-O2; Attempts: 1; Laryngoscopy Grade: 1; ETT Placement Verified By: Capnometry, Visual, Auscultation; Secured at Teeth: 21 cm; Inserted by: Nilson Coto MD; Removal Date: 10/08/22; Removal Time: 1702 NPO status: Reviewed and appropriate Anesthetic Plan: GA Monitoring: Standard ASA monitors Anesthesia Screening documented in this encounter Plan of Treatment Upcoming Encounters Date Type Department Care Team (Late st Contact Info) Description 04/13/2024 3:20 PM EST Office Visit Dermatology at [place] [address] [place] [address] Felicitas Llanes MD [facility] [address] MODESTA [place] [address] 04/26/2024 4:00 PM EST Office Visit Ne[place] [address] Denia Xiao APRN [facility] [place] [address] documented as of this encounter Goals Goal Patient Goal Type Associated Problems Recent Progress Patient-Stated? Author movement Exercise No Arsh So Note: Try cardio chair exercises. Health Mounter Automatic will send links to videos. Self monitoring [...] goals updated 3.13.23 Lifestyle No Arlin Mac I, RD Note: [...] the pause (STOP, and urge surfing. [employer] will mail hand-outs. documented as of this encounter Visit Diagnoses Not on filedocumented in this encounter Administered Medications Inactive Administered Medications - up to 3 most recent administrations Medication Order MAR Action Action Date Dose Rate Site ceFAZolin (Ancef) 2 g vial attach to sodium chloride 0.9% 100 mL Mini-Bag Plus 2 g, Intravenous, METAL RIVET MACHINE OPERATOR TO O.R., 1 dose, On Fri02/23/24 at 0630, Administer over 30 Minutes, Day of Surgery (Day of Procedure), Indication for (Active or Suspected): Prophylaxis New Bag 02/23/2024 8:00 AM EST 2 g dexAMETHasone (Decadron) injection Intravenous, PRN, Starting on Fri02/23/24 at 0822, Until Fri02/23/24 at 1034, Anesthesia Intra-op, Routine Given 02/23/2024 8:22 AM EST 4 mg dexmedeTOMIDine (Precedex) (4 mcg/mL) bolus injection (Anesthsia) Intravenous, PRN, Starting on Fri02/23/24 at 0728, Until Fri02/23/24 at 1034, Anesthesia Intra-op, Routine Given 02/23/2024 9:46 AM EST 12 mcg Given 02/23/2024 7:31 AM EST 8 mcg Given 02/23/2024 7:28 AM EST 8 mcg ePHEDrine sulfate (5 mg/mL) multi-dose injection Intravenous, PRN, Starting on Fri02/23/24 at 0807, Until Fri02/23/24 at 1034, Anesthesia Intra-op, Routine Given 02/23/2024 8:49 AM EST 10 mg Given 02/23/2024 8:07 AM EST 5 mg fentaNYL (pf) (50 mcg/mL) multi-dose injection Intravenous, PRN, Starting on Fri02/23/24 at 0728, Until Fri02/23/24 at 1034, Anesthesia Intra-op, Routine Given 02/23/2024 7:59 AM EST 50 mcg Given 02/23/2024 7:28 AM EST 50 mcg glycopyrrolate (Robinul) (0.2 mg/mL) multi-dose injection Intravenous, PRN, Starting on Fri02/23/24 at 0803, Until Fri02/23/24 at 1034, Anesthesia Intra-op, Routine Given 02/23/2024 8:07 AM EST 0.2 mg Given 02/23/2024 8:03 AM EST 0.2 mg HYDROmorphone (Dilaudid) (2 mg/mL) multi-dose injection solution Intravenous, PRN, Starting on Fri02/23/24 at 1003, Until Fri02/23/24 at 1034, Anesthesia Intra-op, Routine Given 02/23/2024 10:03 AM EST 0.5 mg lactated ringers infusion 1,000 mL, at 100 mL/hr, Intravenous, CONTINUOUS, Starting on Fri02/23/24 at 0630, Until Fri02/23/24 at 1206, Day of Surgery (Day of Procedure) New Bag 02/23/2024 7:28 AM EST lidocaine (pf) (Xylocaine) (20 mg/mL) 2% injection syringe Intravenous, PRN, Starting on Fri02/23/24 at 0735, Until Fri02/23/24 at 1034, Anesthesia Intra-op, Routine Given 02/23/2024 7:35 AM EST 50 mg ondansetron (pf) (Zofran) (2 mg/mL) injection Intravenous, PRN, Starting on Fri02/23/24 at 0933, Until Fri02/23/24 at 1034, Anesthesia Intra-op, Routine Given 02/23/2024 9:33 AM EST 4 mg PHENYLephrine (Alvaro-Synephrine) (80 mcg/mL) in sodium chloride 0.9% 250 mL infusion Intravenous, CONTINUOUS PRN, Starting on Fri02/23/24 at 0844, Until Fri02/23/24 at 1034, Anesthesia Intra-op, Routine New Bag 02/23/2024 8:44 AM EST 20 mcg/min 15 mL/hr propofoL (Diprivan) (10 mg/mL) infusion Intravenous, CONTINUOUS PRN, Starting on Fri02/23/24 at 0745, Until Fri02/23/24 at 1034, Anesthesia Intra-op, Routine New Bag 02/23/2024 7:45 AM EST 50 mcg/kg/min 22.02 mL/hr propofoL (Diprivan) 10 mg/mL bolus injection (Anesthesia) Intravenous, PRN, Starting on Fri02/23/24 at 0735, Until Fri02/23/24 at 1034, Anesthesia Intra-op Given 02/23/2024 8:22 AM EST 50 mg Given 02/23/2024 7:35 AM EST 150 mg rocuronium (Zemuron) (10 mg/mL) multi-dose injection Intravenous, PRN, Starting on Fri02/23/24 at 0735, Until Fri02/23/24 at 1034, Anesthesia Intra-op, Routine Given 02/23/2024 9:36 AM EST 10 mg Given 02/23/2024 8:22 AM EST 50 mg Given 02/23/2024 7:35 AM EST 50 mg sugammadex (Bridion) 100 mg/mL injection Intravenous, PRN, Starting on Fri02/23/24 at 1001, Until Fri02/23/24 at 1034, Anesthesia Intra-op, Routine Given 02/23/2024 10:01 AM EST 200 mg documented in this encounter Care Teams Margin Clerk Relationship Specialty Start Date End Date Barbara, Susan Mobley APRN [address] [place] [address] PCP - General Internal Medicine 09/15/23 documented as of this encounter
--- OUTSIDE RECORDS SUMMARY | 2024-03-20 11:51 | XMS_ITS | Encounter Summary ---
Author Organization [facility] Address [facility] [place] [address] Care Team Providers Care Wharf Tender Head Name Role Phone Susan Jimenez APRN Primary Care Provider +1- [phone] Encounter Details Date Type Department Care Team (Latest Contact Info) Description 12/12/2023 Travel Social History Tobacco Use Types Packs/Day [...] 3:20 PM EST Office Visit Dermatology at [facility] [address] [place] [phone] Felicitas Llanes MD [facility] DR MODESTA [place] [address] 04/26/2024 4:00 PM EST Office Visit Nephrology [place] [address] Denia Xiao APRN [facility] [place] [address] documented as of this encounter Goals Goal Patient Goal Type Associated Problems Recent Progress Patient-Stated? Author movement Exercise No Arsh So Note: Try cardio chair exercises. [employer] Pv Installer will send links to videos. Self monitoring [...] the pause (STOP, and urge surfing. [employer] Pv Installer will mail hand-outs. documented as of this encounter Visit Diagnoses Not on filedocumented in this encounter Care Teams Wharf Tender Head Relationship Specialty Start Date End Date Barbara, Susan Mobley APRN [address] [place] [address] PCP - General Internal Medicine 09/15/23 documented as of this encounter
--- OUTSIDE RECORDS SUMMARY | 2024-03-20 11:51 | XMS_ITS | Encounter Summary ---
[place] [address] Care Team Providers Care Cube Cutter Name Role Phone Susan Jimenez APRN Primary Care Provider +1- [phone] Encounter Details Date Type Department Care Team (Late Contact Info) Description 12/03/2023 Telephone Nephrology [place] [phone] Connie Gomez RN Social History Tobacco Use Types Packs/Day Years Used Date Smoking Tobacco: Former Smokeless Tobacco: Never Comments:quit 1990 Alcohol Use Standard Drinks/Week Comments Yes 0 (1 standard drink = 0.6 oz pur e alcohol) <1 per day [facility] Inpatient Questions Answer Date Recorded Does [...] Encounters Date Type Department Care Team (Late Contact Info) Description 04/13/2024 3:20 PM EST Office Visit Dermatology at [address] [place] [address] Felicitas Llanes MD [facility] [address] MODESTA [place] [address] 04/26/2024 4:00 PM EST Office Visit Nephrology Hypertension at [address] [place] [address] Denia Xiao APRN [facility] [place] [address] documented as of this encounter Goals Goal Patient Goal Type Associated Problems Recent Progress Patient-Stated? Author movement Exercise No Arsh So Note: Try cardio chair exercises. Health Software Asset Management Analyst will send links to videos. Self monitoring [...] the pause (STOP, and urge surfing. Health Software Asset Management Analyst will mail hand-outs. documented as of this encounter Visit Diagnoses Not on filedocumented in this encounter Care Teams Cube Cutter Relationship Specialty Start Date End Date Barbara, Susan Mobley APRN [address] [place] [address] PCP - General Internal Medicine 09/15/23 documented as of this encounter
--- OUTSIDE RECORDS SUMMARY | 2024-03-20 11:51 | XMS_ITS | Encounter Summary ---
[place] [address] Care Team Providers Care Manager Pool Name Role Phone Susan Jimenez APRN Primary Care Provider +1- [phone] Encounter Details Date Type Department Care Team (Late st Contact Info) Description 01/08/2024 [place]phone [place] [phone] Nita Luevano RN Social History Tobacco Use Types Packs/Day Years Used Date Smoking Tobacco: Former Smokeless Tobacco: Never Comments:quit 1990 Alcohol Use Standard Drinks/Week Comments Yes 0 (1 standard drink = 0.6 oz pur e alcohol) <1 per day COUNTS INCLUDE 234 BEDS AT [facility] Inpatient Questions Answer Date Recorded Does [...] encounter Miscellaneous Notes * Telephone Encounter - Nita Luevano RN - 01/08/2024 11:12 AM EDT Copied from CRM #[id number]. Topic: Specialty Dept CRMs - Generic Call >> Jan 08, 2024 10:02 AM Daniela Bellamy wrote: Specialist: Keely Relationship (if other than patient-full name): Ksenia - Diagnostic Imaging [facility] Reason for Call: Ksenia calling to check on status of authorization for CT Chest wo Contrast (Generic)(Order [id number]). documented in this encounter Plan of Treatment Upcoming Encounters Date Type Department Care Team (Late st Contact Info) Description 04/13/2024 3:20 PM EST Office Visit Dermatology at [place] [address] [place] [address] Felicitas Llanes MD [facility] DR MODESTA [place] [address] 04/26/2024 4:00 PM EST Office Visit [place]phrology [place] [address] Denia Xiao APRN [facility] [place] [address] documented as of this encounter Goals Goal Patient Goal Type Associated Problems Recent Progress Patient-Stated? Author movement Exercise No Arsh So Note: Try cardio chair exercises. Health [employer] Sales Representative will send links to videos. Self monitoring [...] the pause (STOP, and urge surfing. [employer] Sales Representative will mail hand-outs. documented as of this encounter Visit Diagnoses Not on filedocumented in this encounter Care Teams Manager Pool Relationship Specialty Start Date End Date Barbara, uSsan Mobley APRN [address] [facility] [place] [address] PCP - General Internal Medicine 09/15/23 documented as of this encounter
--- OUTSIDE RECORDS SUMMARY | 2024-03-20 11:51 | XMS_ITS | Encounter Summary ---
[place] [address] Care Team Providers Care Secondary School Teacher Name Role Phone Susan Jimenez APRN Primary Care Provider +1- [phone] Encounter Details Date Type Department Care Team (Late st Contact Info) Description 02/17/2024 [place] [phone] Katie Aragon RN Social History Tobacco Use Types Packs/Day Years Used Date Smoking Tobacco: Former Smokeless Tobacco: Never Comments:quit 1990 Alcohol Use Standard Drinks/Week Comments Yes 0 (1 standard drink = 0.6 oz pur e alcohol) <1 per day [facility] Inpatient Questions Answer Date Recorded Does [...] Encounter - Katie Aragon RN - 02/17/2024 10:27 AM EST Copied from CRM #[id number]. Topic: Specialty Dept CRMs - Generic Call >> Feb 17, 2024 9:43 AM Duc Winn wrote: Specialist: Case Riggs MD Relationship (if other than patient-full name): Patient Reason for Call: Patient calling in regards to discuss having her orders sent to [facility] prior to procedure. Please advise documented in this encounter Plan of Treatment Upcoming Encounters Date Type Department Care Team (Late st Contact Info) Description 04/13/2024 3:20 PM EST Office Visit Dermatology at [place] [address] [place] [address] Felicitas Llanes MD [facility] [address] [place] [address] 04/26/2024 4:00 PM EST Office Visit Neph[place] [address] Denia Xiao APRN [facility] [place] [address] documented as of this encounter Goals Goal Patient Goal Type Associated Problems Recent Progress Patient-Stated? Author movement Exercise No Arsh So Note: Try cardio chair exercises. Health Internal Control Consultant will send links to videos. Self monitoring [...] to activate your muscles. Nutrition goals updated 3..23 Lifestyle No Fredette, Arlin I, RD Note: Continue to abstain from [...] the pause (STOP, and urge surfing. Health Internal Control Consultant will mail hand-outs. documented as of this encounter Visit Diagnoses Not on filedocumented in this encounter Care Teams Secondary School Teacher Relationship Specialty Start Date End Date Barbara, Susan Mobley APRN [address] [place] [address] PCP - General Internal Medicine 09/15/23 documented as of this encounter
--- OUTSIDE RECORDS SUMMARY | 2024-03-20 11:51 | XMS_ITS | Encounter Summary ---
[place] [address] Care Team Providers Care Supply Controller Name Role Phone Susan Jimenez APRN Primary Care Provider +1- [phone] Encounter Details Date Type Department Care Team (Latest Contact Info) Description 02/03/2023 2:05 PM EST Laboratory Appointment Lab [address] [place] [address] S/P gastric sleeve procedure; Disorder of iron [...] 3:20 PM EST Office Visit Dermatology at [facility] [address] [place] [address] Felicitas Llanes MD [facility] [address] [place] [address] 04/26/2024 4:00 PM EST Office Visit [place] [phone] Denia Xiao APRN [facility] [place] [address] documented as of this encounter Goals Goal Patient Goal Type Associated Problems Recent Progress Patient-Stated? Author movement Exercise No rAsh So Note: Try cardio chair exercises. Health Bridge Leverman will send links to videos. Self monitoring [...] at the 20 minute rebeka self-awareness Lifestyle Arsh Hicks Note: Practice mindful eating, the pause (STOP, and urge surfing. Health Bridge Leverman will mail hand-outs. 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 HEMOGRAM Routine 02/03/2023 2:14 PM EST S/P gastric sleeve procedure Disorder of iron metabolism VITAMIN B1, WHOLE BLOOD Routine 02/03/2023 2:14 PM EST S/P gastric sleeve procedure Disorder of iron metabolism IRON AND TIBC Routine 02/03/2023 2:14 PM EST S/P gastric sleeve procedure Disorder of iron metabolism VITAMIN D, 25-HYDROXY Routine 02/03/2023 2:14 PM EST S/P gastric sleeve procedure Disorder of iron metabolism FOLATE, SERUM Routine 02/03/2023 2:14 PM EST S/P gastric sleeve procedure Disorder of iron metabolism FERRITIN Routine 02/03/2023 2:14 PM EST S/P gastric sleeve procedure Disorder of iron metabolism VITAMIN B12 Routine 02/03/2023 2:14 PM EST S/P gastric sleeve procedure Disorder of iron metabolism COMPREHENSIVE METABOLIC PANEL Routine 02/03/2023 2:14 PM EST S/P gastric sleeve procedure Disorder of iron metabolism documented in this encounter Results * (ABNORMAL) Comprehensive metabolic panel (non-fasting) (02/03/2023 2:14 PM EST) Glucose 85 65 - 199 mg/dL [facility] Comment:Diabetes: >=200 mg/d L plus symptoms Blood Urea Nitrogen 25(H) 8 - 18 mg/dL [facility] Creatinine 0.84 0.70 - 1.20 mg/dL [facility] Sodium 136 135 - 145 mmol/L [facility] Potassium 5.0 3.5 - 5.0 mmol/L [facility] Comment: Please note: ??Patients with WBC >100,000 may have falsely elevated Potassium levels. ??For accurate Potassium quantification in these patients send serum separator tube (gold top) for subsequent determinations. ??Contact the Clinical Chemistry Laboratory if there are any questions. Chloride 101 98 - 107 mmol/L [facility] Carbon Dioxide 25 22 - 31 mmol/L [facility] Anion Gap 10 5 - 15 mmol/L [facility] Calcium 9.6 8.5 - 10.5 mg/dL [facility] Protein, Total 7.3 6.1 - 8.0 g/dL [facility] Albumin 4.1 3.2 - 5.2 g/dL [facility] Aspartate Aminotransferase 14 0 - 30 unit/L [facility] Alanine Aminotransferase 11 0 - 30 unit/L [facility] Alkaline Phosphatase 55 35 - 105 unit/L [facility] Bilirubin, Total <0.2(L) 0.2 - 1.3 mg/dL [facility] Est Glomerular Filtration Rate 80 >=60 mL/min/1. 73 m?? [facility] Comment: This patient's estimated GFR [...] urine creatinine clearance. Assignment of CKD stage 1-5 for patients with an eGFR near the transition point between stages may be based on clinical assessment of muscle mass and symptoms in addition to eGFR. Blood 02/03/2023 2:14 PM EST 02/03/2023 2:29 PM EST Narrative Resulting Agency Comment Spec In Lab Mellisa E Marathon STAFFING RECRUITER CHEMISTRY ORDERABL ES Performing Organization Address City/[facility]/ZIP Co de Phone Number [facility] [place] [place] [address] * Ferritin (02/03/2023 2:14 PM EST) Pathologist [facility] Ferritin 197 30 - 400 ng/mL [facility] Comment: Pediatric reference ranges not verified at [facility], interpret with caution. Reference ranges for females greater than 50 years of age approach values for men, i.e., 30-400 ng/mL. Blood 02/03/2023 2:14 PM EST 02/03/2023 2:29 PM EST Narrative Resulting Agency Comment Spec In Lab Mellisa E Kashif STAFFING RECRUITER CHEMISTRY ORDERABL ES Performing Organization Address [facility] Co de Phone Number [facility] [place] [address] * Folate, serum (02/03/2023 2:14 PM EST) [facility] Folate >20.0 4.8 - 24.2 ng/mL [facility] Blood 02/03/2023 2:14 PM EST 02/03/2023 2:29 PM EST Narrative Resulting Agency Comment Spec In Lab Mellisa E Marathon STAFFING RECRUITER CHEMISTRY ORDERABL ES Performing Organization Address City/[facility] Co de Phone Number [facility] [place] [address] * (ABNORMAL) Hemogram (02/03/2023 2:14 PM EST) [facility] White Blood Cell 9.8(H) 4.0 - 9.5 x10(3)/mc L [facility] Red Blood Cell 4.14 4.00 - 5.21 x10(6)/mc L [facility] Hemoglobin 12.6 11.7 - 15.5 g/dL [facility] Hematocrit 38.1 35.7 - 45.8 % [facility] Mean Cell Volume 92.0 82.6 - 94.4 fL [facility] Mean Cell Hemoglobin 30.4 27.1 - 32.0 pg [facility] Mean Cell Hemoglobin Concentration 33.1 31.7 - 35.0 g/dL [facility] Platelet 275 145 - 357 x10(3)/mc L [facility] RDW Standard Deviation 50.6(H) 37.0 - 46.0 fL [facility] RDW coefficient of variation 14.8(H) 11.5 - 14.1 % [facility] Mean Platelet Volume 10.1 7.6 - 12.9 fL [facility] NRBC% auto 0.0 % [facility] NRBC Absolute 0.000 0.000 - 0.000 x10(3)/mc L [facility] Blood 02/03/2023 2:14 PM EST 02/03/2023 2:29 PM EST Narrative Resulting Agency Comment Spec In Lab Mellisa E Marathon STAFFING RECRUITER HEMATOLOGY ORDERAB LES Performing Organization Address City/[facility]/ZIP Co de Phone Number [facility] [place] [address] * (ABNORMAL) Iron and TIBC (02/03/2023 2:14 PM EST) Iron 36 30 - 150 mcg/dL [facility] TIBC 232(L) 250 - 450 mcg/dL [facility] Iron Saturation 16(L) 20 - 50 % [facility] Blood 02/03/2023 2:14 PM EST 02/03/2023 2:29 PM EST Narrative Resulting Agency Comment Spec In Lab Mellisa E Marathon STAFFING RECRUITER CHEMISTRY ORDERABL ES Performing Organization Address City/[facility]/ZIP Co de Phone Number [facility] [place] [address] * PTH (02/03/2023 2:14 PM EST) Parathyroid Hormone 46 15 - 65 pg/mL [facility] Blood 02/03/2023 2:14 PM EST 02/03/2023 2:29 PM EST Narrative Resulting Agency Comment Spec In Lab Mellisa E Kashif STAFFING RECRUITER CHEMISTRY ORDERABL ES Performing Organization Address [facility] Co de Phone Number [facility] [place] [address] * Vitamin B1, whole blood (02/03/2023 2:14 PM EST) Vit B1 Lvl Wb (JULY) 153 70 - 180 nmol/L [facility] Comment: ADDITIONAL INFORMATION This test was developed and its performance characteristics determined by [facility] in a manner consistent with CLIA requirements. This test has not been cleared or approved by the U.S. Food and Drug Administration. Test Performed by: [facility] - [address] [address] Law Clerk: Ganesh Henry M.D. Ph.D.; CLIA# [id number] Blood 02/03/2023 2:14 PM EST 02/03/2023 4:39 PM EST Narrative Resulting Agency Comment Spec In Lab Mellisa E Kashif STAFFING RECRUITER LAB SEND OUT ORDER LOLITA Performing Organization Address [facility] Co de Phone Number [facility] [place] [address] * Vitamin D, 25-Hydroxy (02/03/2023 2:14 PM EST) Vitamin D Total 25 OH 52 21 - 100 ng/mL [facility] Vit D Interp Sufficient [facility] Blood 02/03/2023 2:14 PM EST 02/03/2023 2:29 PM EST Narrative Resulting Agency Comment Spec In Lab Mellisa E Marathon STAFFING RECRUITER CHEMISTRY ORDERABL ES Performing Organization Address City/[facility]/ZIP Co de Phone Number [facility] [place] [address] * Vitamin B12 (02/03/2023 2:14 PM EST) Vitamin B12 975 232 - 1,245 pg/mL [facility] Blood 02/03/2023 2:14 PM EST 02/03/2023 2:29 PM EST Narrative Resulting Agency Comment Spec In Lab Mellisa E Marathon STAFFING RECRUITER CHEMISTRY ORDERABL ES [facility] [place] [place] [address] documented in this encounter Visit Diagnoses Diagnosis S/P 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
--- OUTSIDE RECORDS SUMMARY | 2024-03-20 11:51 | XMS_ITS | Encounter Summary ---
[place] [address] Care Team Providers Care Carpenter Foreman Name Role Phone Susan Jimenez APRN Primary Care Provider +1- [phone] Encounter Details Date Type Department Care Team (Late Contact Info) Description 12/15/2023 [place] [phone] Tova Harvey Social History Tobacco Use Types Packs/Day Years Used Date Smoking Tobacco: Former Smokeless Tobacco: Never Comments:quit 1990 Alcohol Use Standard Drinks/Week Comments Yes 0 (1 standard drink = 0.6 oz pur e alcohol) <1 per day [facility] Inpatient Questions Answer Date Recorded Does Anyone [...] Visit Dermatology at [address] [place] [phone] Felicitas Llanes MD [facility] [address] [address] 04/26/2024 4:00 PM EST Office Visit Nephrology Hypertension at [facility] [place] [phone] Denia Xiao APRN [facility] [place] [address] documented as of this encounter Goals Goal Patient Goal Type Associated Problems Recent Progress Patient-Stated? Author movement Exercise No Arsh So Note: Try cardio chair exercises. Health Weaving Instructor will send links to videos. Self monitoring [...] the pause (STOP, and urge surfing. Health Weaving Instructor will mail hand-outs. documented as of this encounter Visit Diagnoses Not on filedocumented in this encounter Care Teams Carpenter Foreman Relationship Specialty Start Date End Date Barbara, Susan Mobley APRN [address] [place] [address] PCP - General Internal Medicine 09/15/23 documented as of this encounter
--- OUTSIDE RECORDS SUMMARY | 2024-03-20 11:51 | XMS_ITS | Encounter Summary ---
Author Organization [facility] Address [facility] [place] [address] Care Team Providers Care Panel Assembler Name Role Phone Susan Jimenez APRN Primary Care Provider +1- [phone] Encounter Details Date Type Department Care Team (Latest Contact Info) Description 02/03/2023 Travel Social History Tobacco Use Types Packs/Day [...] 3:20 PM EST Office Visit Dermatology at [facility] [address] [place] [address] Felicitas Llanes MD [facility] DR [address] [place] [address] 04/26/2024 4:00 PM EST Office Visit [place] [address] Denia Xiao APRN [facility] [place] [address] documented as of this encounter Goals Goal Patient Goal Type Associated Problems Recent Progress Patient-Stated? Author movement Exercise No Arsh So Note: Try cardio chair exercises. Health Service Desk Technician will send links to videos. Self [...] the pause (STOP, and urge surfing. Health Service Desk Technician will mail hand-outs. documented as of this encounter Visit Diagnoses Not on filedocumented in this encounter Care Teams Panel Assembler Relationship Specialty Start Date End Date Barbara, Susan Mobley APRN PCP - General Internal Medicine 10/03/22 09/14/23 documented as of this encounter
--- OUTSIDE RECORDS SUMMARY | 2024-03-20 11:51 | XMS_ITS | Encounter Summary ---
[place] [address] Care Team Providers Care Gift Manager Name Role Phone Susan Jimenez APRN Primary Care Provider +1- [phone] Reason for Referral * Consultation (Routine) - Closed Specialty Diagnoses / Procedures Referred By Yury thornton Referred To Contact Nephrology Diagnoses Other specified abnormal findings of blood chemistry Abnormal finding of blood chemistry, unspecified Susan Jimenez APRN [address] [place] [address] [facility] [address] [place] [phone] Referral ID Status Reason Start Date Expiration Date V isits Requested Visits Authorized [id number] Closed Consult, Test & Treat PCP Updated and/or Approved 09/15/2023 09/14/2024 6 6 Encounter Details Date Type Department Care Team (Late st Contact Info) Description 09/15/2023 Transcribe Orders eDH Incoming Referrals [phone] Susan Jimenez APRN [address] [place], [place] [id number] Other specified abnormal findings of blood chemistry; Abnormal finding of blood chemistry, unspecified Social History Tobacco Use Types Packs/Day Years [...] 3:20 PM EST Office Visit Dermatology at [place] [address] [place] [address] Felicitas Llanes MD [facility] [address] [place] [address] 04/26/2024 4:00 PM EST Office Visit [place] [address] Denia Xiao APRN [facility] [place] [address] Scheduled Referrals Name Type Priority Associated Diagnoses Orde r Schedule Referral to Nephrology Outpatient Referral Routine Other specified abnormal findings of blood chemistry Abnormal finding of blood chemistry, unspecified Ordered: 09/15/2023 documented as of this encounter Goals Goal Patient Goal Type Associated Problems Recent Progress Patient-Stated? Author movement Exercise No Arsh So Note: Try cardio chair exercises. Health Entry Level Management will send links to videos. Self monitoring [...] the pause (STOP, and urge surfing. Health Entry Level Management will mail hand-outs. documented as of this encounter Visit Diagnoses Diagnosis Other specified abnormal findings of blood chemistry Abnormal finding of blood chemistry, unspecified documented in this encounter Care Teams Gift Manager Relationship Specialty Start Date End Date Barbara, Susan Mobley APRN [address] [place] [address] PCP - General Internal Medicine 09/15/23 documented as of this encounter
--- OUTSIDE RECORDS SUMMARY | 2024-03-20 11:51 | XMS_ITS | Encounter Summary ---
Author Organization [facility] Address [facility] [place] [address] Care Team Providers Care 3D Artist Name Role Phone Susan Jimenez APRN Primary Care Provider +1- [phone] Encounter Details Date Type Department Care Team (Latest Contact Info) Description 10/22/2023 Travel Social History Tobacco Use Types Packs/Day [...] 3:20 PM EST Office Visit Dermatology at [facility] [address] [place] [phone] Felicitas Llanes MD [facility] [address] [address] 04/26/2024 4:00 PM EST Office Visit [place] [address] Denia Xiao APRN [facility] [place] [address] documented as of this encounter Goals Goal Patient Goal Type Associated Problems Recent Progress Patient-Stated? Author movement Exercise No Arsh So Note: Try cardio chair exercises. Health Technology Applications Teacher will send links to videos. Self monitoring [...] the pause (STOP, and urge surfing. Health Technology Applications Teacher will mail hand-outs. documented as of this encounter Visit Diagnoses Not on filedocumented in this encounter Care Teams 3D Artist Relationship Specialty Start Date End Date Barbara, Susan Mobley APRN [address] [place] [address] PCP - General Internal Medicine 09/15/23 documented as of this encounter
--- OUTSIDE RECORDS SUMMARY | 2024-03-20 11:51 | XMS_ITS | Encounter Summary ---
Author Organization [facility] [place] [address] Care Team Providers Care Store Specialist Name Role Phone BarbaraSusan APRN Primary Care Provider +1- [phone] Reason for Referral * Diagnostic Test (Routine) - Pending Review Specialty Diagnoses / Procedures Referred By Contac t Referred To Contact Radiology Diagnoses Renal mass Procedures CT Chest wo Contrast (Generic) Case Riggs MD [facility] [place] [address] Referral ID Status Reason Start Date Expiration Date Visits Requested Visits Authorized [id number] Pending Review Specialty Service Requested 12/12/2023 06/10/2025 1 1 Reason for Visit * Consultation (Routine) - Closed Specialty Diagnoses / Procedures Referred By Contac t Referred To Contact Urology Diagnoses Renal mass, right Denia Xiao APRN [facility] [address] [facility] [place] [address] Referral ID Status Reason Start Date Expiration Date V isits Requested Visits Authorized [id number] Closed Consult, Test & Treat 12/11/2023 12/10/2024 1 1 Encounter Details Date Type Department Care Team (Late st Contact Info) Description 12/12/2023 3:40 PM EDT [place] [address] Case Riggs MD [facility] [place] [address] Renal mass Social History Tobacco Use Types Packs/Day Years Used Date Smoking Tobacco: Former Smokeless Tobacco: Never Comments:quit 1990 Alcohol Use Standard Drinks/Week Comments Yes 0 (1 standard drink = 0.6 oz pur e alcohol) <1 per day [facility] Inpatient Questions Answer Date Recorded Does [...] Sign Reading Time Taken Comments Blood Pressure 134/76 12/12/2023 3:37 PM EDT Pulse 61 12/12/2023 3:37 PM EDT Temperature - - Respiratory Rate - - Oxygen Saturation - - Inhaled Oxygen Concentration - - Weight - - Height - - Body Mass Index - - documented in this encounter Progress Notes * Case Riggs MD - 12/12/2023 3:40 PM EDT UROLOGY NEW PATIENT VISIT CC: Right renal mass HPI: 58 yo female referred to me by Denia Xiao APRN for an evaluation of right renal mass. She underwent a renal u/s as a part of a workup for rising Creatinine with the incidental findings ofa 6 cm right renal mass. She denies any hematuria, or flank pain. She does not smoke. She denies any family history of RCC. Past Medical History: Diagnosis Date Allergic rhinitis Patient Active Problem List Diagnosis Chronic kidney disease, stage II (mild) Acute dehydration Amenorrhea Overview Note: menopause Blood urea abnormal Cardiac murmur, unspecified Overview Note: systolic murmur Decreased renal function History of vein stripping [...] Right knee pain Hypothyroidism Fracture of pelvis Past Surgical History: Procedure Laterality Date SECTION 1988 PRO LAPAROSCOPY, SURG/GASTRIC RESTRICTIVE PROC, LONGITUDINAL GASTRECTOMY N/A 10/08/2022 @LAPAROSCOPY, SURG/GASTRIC RESTRICTIVE PROC, LONGITUDINAL GASTRECTOMY (WRVU 20.38) performed by Annabella Borrero MD at [facility] MAIN OR PRO UPPER GI ENDOSCOPY, DIAGNOSTIC N/A 10/08/2022 EGD, UPPER GI ENDOSCOPY (WRVU 2.09) performed by Annabella Borrero MD at [facility] MAIN OR Social History Socioeconomic History Marital status: Spouse name: None Number of children: None Years of education: None Highest education level: None Occupational History None Tobacco Use Smoking status: Former Smokeless tobacco: Never Tobacco comments: quit 1990 Vaping Use Vaping status: Never Used Substance and Sexual Activity Alcohol use: Yes Comment: <1 per day Drug use: Not Currently Sexual activity: None Other Topics Concern None 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 , 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, 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, 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 Social Determinants of Health Financial Resource Strain: Not on file Food Insecurity: Not on file Transportation Needs: Not on file Physical Activity: Not on file Intimate Partner Violence: Patient Unable To Answer (10/08/2022) DH IPV Inpatient Questions Prevent Contact with Others: unable to answer (comment required) Feels Threatened by Someone: unable to answer (comment required) Feels Unsafe at Home: unable to answer (comment required) Physical Signs of Abuse Present: no Housing Stability: Not on file Family History Problem Relation Age of Onset Asthma Mother Allergic Rhinitis Mother Allergic Rhinitis Father Asthma Sister Allergic Rhinitis Sister Allergic Rhinitis Brother ROS: General Health: GENERAL: Denies fevers, sweats, chills, anorexia, denies weight changes. POWDER GUARD: Denies loss of consciousness, denies balance difficulty, denies pins/needle sensations. HEENT: Denies headaches and vision changes. RESP: Denies cough or breathing difficulties. CVS: Denies chest pain and SEARS. No claudication. GI: Denies nausea/vomiting/diarrhea/constipation. Normal appetite and bowels. : see hpi MUSCULOSKELETAL: Denies joint or muscle aches. Denies back pain. SKIN: Denies rashes. HEME: Denies bleeding tendencies, bruisability. EXAMINATION: Patient Vitals for the past 24 hrs: Pulse BP 12/12/23 1537 61 134/76 GENERAL: Well appearing female in NAD. Healthy appearance. HEENT: Atraumatic, normocephalic. Anicteric sclera. MMM. NECK: Supple with no significant lymphadenopathy. RESPIRATORY: Unlabored respirations with no audible wheezing. CARDIAC: Regular rhythm with no audible MGR. ABDOMEN: Benign without masses. No rebound or guarding. BACK: No CVA tenderness NEUROLOGIC: Alert and oriented x 3. EXTREMITIES: Warm and well perfused with no pitting edema. LABS: Latest Reference Range & Units 11/13/23 11:13 Sodium 135 - 145 mMol/L 135 Potassium 3.5 - 5.0 mMol/L 3.8 Chloride 98 - 107 mMol/L 97 (L) Carbon Dioxide 22 - 31 mMol/L 28 Anion Gap 5 - 15 mMol/L 10 Blood Urea Nitrogen 8 - 18 mg/dL 18 Creatinine 0.70 - 1.20 mg/dL 0.80 Est Glomerular Filtration Rate - Female mL/min/1.73 m?? 84 Cystatin C (MAY) 0.67 - 1.21 mg/L 1.10 Cystatin C Egfr (MAY) >60 mL/min/BSA 64 Calcium 8.5 - 10.5 mg/dL 9.4 Magnesium 0.69 - 1.07 mMol/L 0.92 Phosphorus 2.5 - 4.5 mg/dL 4.1 (L): Data is abnormally low IMAGING: CT abdomen independently reviewed by me showing an enhancing 6-7cm right renal mass ASSESSMENT/PLAN: Right renal mass suspicious for malignancy. I explained to her the findings and the risk of RCC. I explained to her the role of renal mass biopsy. She expressed interest in scheduling surgery (radical nephrectomy). I explained to her the role of laparoscopy +/- robotic assisted. I explained the risks, including bleeding, infection, bowel injury, hernia formation, CKI, DVT, PE, [place], stroke etc. Shewill need a staging CT chest and preop labs. documented in this encounter Plan of Treatment Upcoming Encounters Date Type Department Care Team (Late st Contact Info) Description 04/13/2024 3:20 PM EST Office Visit Dermatology at [place] [address] [place] [address] Felicitas Llanes MD [facility] [address] [address] 04/26/2024 4:00 PM EST Office Visit Neph[place] [address] Denia Xiao APRN [facility] [place] [address] Scheduled Orders Name Type Priority Associated Diagnoses Orde r Schedule CT Chest wo Contrast (Generic) Imaging Routine Renal mass Expected: 12/12/2023, Expires: 06/12/2024 Urinalysis with reflex Culture Lab Routine Renal mass Expected: 12/12/2023, Expires: 06/12/2024 Type and Screen Future Surgery, [facility] [place] SAME DAY PROGRAM ONLY) Blood Bank Routine Renal mass Expected: 12/12/2023, Expires: 06/12/2024 CBC (with Diff) Lab Routine Renal mass Expected: 12/12/2023 (Approximate), Expires: 12/11/2024 Comprehensive metabolic panel Non-fasting Lab Routine Renal mass Expected: 12/12/2023 (Approximate), Expires: 12/11/2024 documented as of this encounter Goals Goal Patient Goal Type Associated Problems Recent Progress Patient-Stated? Author movement Exercise Arsh Hicks Note: Try cardio chair exercises. Health Line Construction Supervisor will send links to videos. Self monitoring [...] the pause (STOP, and urge surfing. Health Line Construction Supervisor will mail hand-outs. documented as of this encounter Visit Diagnoses Diagnosis Renal mass Unspecified disorder of kidney and ureter documented in this encounter Care Teams Store Specialist Relationship Specialty Start Date End Date Barbara, Susan Mobley APRN [address] [place] [address] PCP - General Internal Medicine 09/15/23 documented as of this encounter
--- OUTSIDE RECORDS SUMMARY | 2024-03-20 11:51 | XMS_ITS | Encounter Summary ---
[place] [address] Care Team Providers Care Continuity Editor Name Role Phone Susan Jimenez APRN Primary Care Provider +1- [phone] Encounter Details Date Type Department Care Team (Late st Contact Info) Description 12/17/2023 [place] [phone] Katie Aragon RN Social History Tobacco Use Types Packs/Day Years Used Date Smoking Tobacco: Former Smokeless Tobacco: Never Comments:quit 1990 Alcohol Use Standard Drinks/Week Comments Yes 0 (1 standard drink = 0.6 oz pur e alcohol) <1 per day [facility] Inpatient Questions Answer Date Recorded Does Anyone [...] Telephone Encounter - Katie Aragon RN - 12/17/2023 4:29 PM EDT Copied from CRM #[id number]. Topic: Specialty Dept CRMs - Generic Call >> Dec 17, 2023 2:22 PM Corrie Guzman wrote: Specialist: Case Riggs MD Relationship (if other than patient-full name): self Reason for Call: The patient is requesting the orders for CT Chest wo Contrast (Generic) (Order [id number]) be sent to [facility] in [facility]. documented in this encounter Plan of Treatment Upcoming Encounters Date Type Department Care Team (Late st Contact Info) Description 04/13/2024 3:20 PM EST Office Visit Dermatology at [place] [address] [place] [address] Felicitas Llanes MD [facility] [address] [place] [address] 04/26/2024 4:00 PM EST Office Visit [place] [address] Denia Xiao [address]N [facility] [place] [address] documented as of this encounter Goals Goal Patient Goal Type Associated Problems Recent Progress Patient-Stated? Author movement Exercise No Arsh So Note: Try cardio chair exercises. Health Conciliation Court Judge will send links to videos. Self monitoring Lifestyle On track(2021 10:00 AM EST) No Denia hKalil MD Note: Keep food log until you [...] the pause (STOP, and urge surfing. Health Conciliation Court Judge will mail hand-outs. documented as of this encounter Visit Diagnoses Not on filedocumented in this encounter Care Teams Continuity Editor Relationship Specialty Start Date End Date Barbara, Susan Mobley APRN [address] [place] [address] PCP - General Internal Medicine 09/15/23 documented as of this encounter
--- OUTSIDE RECORDS SUMMARY | 2024-03-20 11:51 | XMS_ITS | Encounter Summary ---
Author Organization [facility] Address [facility] [place] [address] Care Team Providers Care Floors Buffer Name Role Phone Susan Jimenez APRN Primary Care Provider +1- [phone] Encounter Details Date Type Department Care Team (Latest Contact Info) Description 11/13/2023 Travel Social History Tobacco Use Types Packs/Day [...] 3:20 PM EST Office Visit Dermatology at [facility] [address] [place] [address] Felicitas Llanes MD [facility] [address] [place] [address] 04/26/2024 4:00 PM EST Office Visit [place] [address] Denia Xaio APRN [facility] [place] [address] documented as of this encounter Goals Goal Patient Goal Type Associated Problems Recent Progress Patient-Stated? Author movement Exercise No Arsh So Note: Try cardio chair exercises. Health Motion Picture Equipment Supervisor will send links to videos. Self [...] the pause (STOP, and urge surfing. Health Motion Picture Equipment Supervisor will mail hand-outs. documented as of this encounter Visit Diagnoses Not on filedocumented in this encounter Care Teams Floors Buffer Relationship Specialty Start Date End Date Barbara, Susan Mobley APRN [address] [place] [address] PCP - General Internal Medicine 09/15/23 documented as of this encounter
--- OUTSIDE RECORDS SUMMARY | 2024-03-20 11:51 | XMS_ITS | Encounter Summary ---
Author Organization [facility] [place] [address] Care Team Providers Care Chief Projectionist Name Role Phone Susan Jimenez APRN Primary Care Provider +1- [phone] Encounter Details Date Type Department Care Team (Late st Contact Info) Description 12/09/2023 Ancillary Procedure Radiology Library at [facility] [place] [address] Susan Jimenez APRN [address] [place], [place] [address] Social History Tobacco Use Types Packs/Day Years Used Date Smoking Tobacco: Former Smokeless Tobacco: Never Comments:quit 1990 Alcohol Use Standard Drinks/Week Comments Yes 0 (1 standard drink = 0.6 oz pur e alcohol) <1 per day [facility] Inpatient Questions Answer Date Recorded Does Anyone [...] 3:20 PM EST Office Visit Dermatology at [facility] [address] [place] [address] Felicitas Llanes MD [facility] [address] [place] [address] 04/26/2024 4:00 PM EST Office Visit [place] [address] Denia Xiao APRN [facility] [place] [address] documented as of this encounter Goals Goal Patient Goal Type Associated Problems Recent Progress Patient-Stated? Author movement Exercise No Arsh So Note: Try cardio chair exercises. Health Salesperson Burial Plots will send links to videos. Self monitoring [...] the pause (STOP, and urge surfing. Health Salesperson Burial Plots will mail hand-outs. documented as of this encounter Procedures Procedure Name Priority Date/Time Associated Diagnosis Comments FILM LIBRARY STORAGE ONLY CT ABDOMEN AND PELVIS Routine 12/09/2023 12:00 AM EDT documented in this encounter Results * Film Library- Storage Only CT Abdomen & Pelvis (12/09/2023 12:00 AM EDT) Narrative RISA - 12/10/2023 2:24 PM EDT This exam is auto-finalizing. It's purpose is for storage only. Susan Mobley Barbara PEDIATRIC REGISTERED NURSE IMG FILM LIBRARY O RDERABLES Performing Organization Address City/State/[facility] Co de Phone Number [place], [place] documented in this encounter Visit Diagnoses Not on filedocumented in this encounter Care Teams Chief Projectionist Relationship Specialty Start Date End Date Barbara, Susan Molbey APRN [address] [place] [address] PCP - General Internal Medicine 09/15/23 documented as of this encounter
--- OUTSIDE RECORDS SUMMARY | 2024-03-20 11:51 | XMS_ITS | Encounter Summary ---
Author Organization [facility] [place] [address] Care Team Providers Care Woods Boss Name Role Phone Susan Jimenez APRN Primary Care Provider +1- [phone] Encounter Details Date Type Department Care Team (Late st Contact Info) Description 12/03/2023 [place] [address] Denia Xiao APRN [facility] [place] [address] Chronic kidney disease, stage II (mild) Social [...] 3:20 PM EST Office Visit Dermatology at [facility] [address] [place] [address] Felicitas Llanes MD [facility] DR MO[address] [place] [address] 04/26/2024 4:00 PM EST Office Visit [place] [address] Denia Xiao APRN [facility] [place] [address] Scheduled Orders Name Type Priority Associated Diagnoses Orde r Schedule Basic Metabolic Panel Non-fasting Lab Routine Chronic kidney disease, stage II (mild) Expected: 12/03/2023 (Approximate), Expires: 06/01/2025 documented as of this encounter Goals Goal Patient Goal Type Associated Problems Recent Progress Patient-Stated? Author movement Exercise No Arsh So Note: Try cardio chair exercises. Health Counselor Education Professor will send links to videos. Self monitoring Lifestyle On track(2021 10:00 AM EST) No Denia Khalil MD Note: Keep food log until you are seen by the dieititian. Record everything you eat or drink, include time eaten and any emotional changes that are significant. Actrivity Lifestyle No Deina Khalil MD Note: Open your yoga rusty [...] the pause (STOP, and urge surfing. Health Counselor Education Professor will mail hand-outs. documented as of this encounter Visit Diagnoses Diagnosis Chronic kidney disease, stage II (mild) Chronic kidney disease, Stage II (mild) documented in this encounter Care Teams Woods Boss Relationship Specialty Start Date End Date Barbara, Susan Mobley APRN [address] [place] [address] PCP - General Internal Medicine 09/15/23 documented as of this encounter
--- OUTSIDE RECORDS SUMMARY | 2024-03-20 11:51 | XMS_ITS | Encounter Summary ---
[place] [address] Care Team Providers Care Polish Maker Name Role Phone Susan Jimenez APRN Primary Care Provider +1- [phone] Encounter Details Date Type Department Care Team (Late st Contact Info) Description 12/30/2023 [place] [phone] Nita Luevano RN Social History Tobacco Use Types Packs/Day Years Used Date Smoking Tobacco: Former Smokeless Tobacco: Never Comments:quit 1990 Alcohol Use Standard Drinks/Week Comments Yes 0 (1 standard drink = 0.6 oz pur e alcohol) <1 per day [facility] Inpatient Questions Answer Date Recorded Does [...] Telephone Encounter - Nita Luevano RN - 12/30/2023 2:13 PM EDT Copied from CRM #[id number]. Topic: Specialty Dept CRMs - Generic Call >> Dec 30, 2023 1:33 PM Jeevan Winn wrote: Specialist: Keely Relationship (if other than patient-full name): self Reason for Call: calling stating we need to put in a new order for her CT Chest wo Contrast (Generic) (Order [id number]) as she got new insurance and that we also need to acquire the prior auth for this to be done and then is requesting we fax over to [facility]. Please Call to Advise. documented in this encounter Plan of Treatment Upcoming Encounters Date Type Department Care Team (Late st Contact Info) Description 04/13/2024 3:20 PM EST Office Visit Dermatology at [place] [address] [place] [address] Felicitas Llanes MD [facility] DR [address] [place] [address] 04/26/2024 4:00 PM EST Office Visit [place] [address] Denia Xiao APRN [facility] [place] [address] documented as of this encounter Goals Goal Patient Goal Type Associated Problems Recent Progress Patient-Stated? Author movement Exercise No Arsh So Note: Try cardio chair exercises. Health Boring Machine Operator Production will send links to videos. Self monitoring [...] the pause (STOP, and urge surfing. Health Boring Machine Operator Production will mail hand-outs. documented as of this encounter Visit Diagnoses Not on filedocumented in this encounter Care Teams Polish Maker Relationship Specialty Start Date End Date Barbara, Susan Mobley APRN [address] [place] [address] PCP - General Internal Medicine 09/15/23 documented as of this encounter
--- OUTSIDE RECORDS SUMMARY | 2024-03-20 11:51 | XMS_ITS | Encounter Summary ---
Author Organization [facility] Address [facility] [place] [address] Care Team Providers Care Range Scientist Name Role Phone Susan Jimenez APRN Primary Care Provider [phone]- [phone] Reason for Visit * Reason Comments Skin Cancer Examination Encounter Details Date Type Department Care Team (Late st Contact Info) Description 10/22/2023 3:00 PM EDT Office Visit Dermatology at [facility] [address] [place] [address] Flako Dai MD [facility] DR [address] [place] [address] Multiple benign nevi of upper extremity, lower extremity, and trunk; Kelly angioma; Seborrheic keratoses; Inflamed skin tag; Hair loss Social History Tobacco Use Types Packs/Day Years [...] as of this encounter Progress Notes * Flako Dai MD - 10/22/2023 3:00 PM EDT Images from the original note were not included. DEPARTMENT OF DERMATOLOGY Medical Dermatology [facility] Provider: Flako Dai MD Patient's preferred name Martita Preferred contact method for results []Phone []myD-H []Letter Y Detailed phone message OK? Y Are there any other people with whom we may discuss your care? 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 Patient returns to clinic today for a full skin exam with the following concerns: - Skin tag like lesion on the buttock that has become sore and she would like removed - Denies any other spots of concern today. Last visit at Dermatology: 08/22/2021 Medications: Reviewed in eD-H Allergies: Reviewed in eD-H Skin Examination: Full skin examination: Patient asked to undress to their comfort level. Verbalized that the provider's preference is that patient remove all clothing and that the provider will not examine areas patient elects to keep covered. Examination of the scalp, hair, head, face, ears, neck, chest, axillae, abdomen, back, buttocks, and upper and lower extremities was normal with the exception of the findings below. Genitalia not examined. Assessment/Plan #. Inflamed Skin Tag - Inflamed pedunculated, flesh-colored papule on the left buttock. - Discussed benign nature of lesion(s) and provided reassurance. - Due to irritation present on today's exam, patient elects to proceed with snip removal. Procedure: Skin snip removal using scissors. Location(s): As noted above. Number: 1 Discussed procedure and expectations including risks and benefits. Verbal consent obtained. Skin prepped with alcohol. Skin tag was removed with scissors. Hemostasis obtained (AlCl and/or electrocautery) as needed. Wound(s) dressed with adhesive bandage as needed. Specimen(s) were not sent to Pathology. There were no complications; patient tolerated the procedure well. Post-procedure expectationsand wound care reviewed. #. Hair Loss - Hair recession on the frontal scalp with thinning of the vertex scalp. No evidence of active inflammation. No evidence of scarring. - Pt was seen by Dr. Leny Barceans 05/12/2018 and diagnosed with Frontal Fibrosing Alopecia. She wasstarted on hydroxychloroquine at that time, which she is no longer taking. Patient wishes to have visit to discuss her condition and further treatment for hair loss. - Will have patient return at a later date to address this further. #. Seborrheic Keratoses - Stuck on, waxy papules on the trunk and extremities. - Discussed benign nature of lesions and provided reassurance. No treatment necessary at this time. #. Kelly Angiomas - Multiple bright red, well-demarcated papules on the trunk and extremities. - Discussed benign nature of lesions and provided reassurance. No treatment necessary at this time. #. Benign Nevi - Scattered medium brown, evenly pigmented macules and papules on the trunk and extremities with reassuring pigment pattern on dermoscopy. - Discussed benign nature of lesions and provided reassurance. Will continue to monitor. Other: Sun protection discussed (protective clothing and SPF30+ broad-spectrum sunscreen) RTC: Next available for hair loss (Dr. Acevedo precepting) []Note routed to school attendance secretary []Recall placed in scheduling system [x]Appointment scheduled at checkout Scribe attestation: Tnaya Samano CMA has performed the documentation for this encounter in the presence of and acting as a scribe for Flako Dai MD. I performed the above scribed service and agree with the accuracy of the documentation in this encounter. Reviewed and signed by: Flako Dai MD Dermatology [facility] Patient seen and evaluated with staff cognos analyst: Anette Stokes MD Dermatology [facility] * Anette Stokes MD - 10/22/2023 3:00 PM EDT I directly supervised Flako Dai MD in the care of this Dermatology patient in person. I saw and evaluated this patient with Flako Dai MD. Flako Dai MD presented the history and physical exam details to me, then we saw the patient together, and I confirmed these findings. I agree with details as written. My physical examination confirms Flako Dai MD's findings. The assessment and plan were formulated in discussion with me at the time of visit, and I agree with them as documented. Anette Stokes MD Staff Soil Fertility Extension Specialist Department of Dermatology [facility] documented in this encounter Plan of Treatment Upcoming Encounters Date Type Department Care Team (Late st Contact Info) Description 04/13/2024 3:20 PM EST Office Visit Dermatology at [place] [address] [place] [address] Felicitas Llanes MD [facility] DR [address] [facility] [address] 04/26/2024 4:00 PM EST Office Visit [place] [address] Denia Xiao APRN [facility] [place] [address] documented as of this encounter Goals Goal Patient Goal Type Associated Problems Recent Progress Patient-Stated? Author movement Exercise Arsh Hicks Note: Try cardio chair exercises. Health Surface Supervisor will send links to videos. Self [...] the pause (STOP, and urge surfing. Health Surface Supervisor will mail hand-outs. documented as of this encounter Visit Diagnoses Diagnosis Multiple benign nevi of upper extremity, lower extremity, and trunk Kelly angioma Nevus, non-neoplastic Seborrheic keratoses Inflamed skin tag Unspecified hypertrophic and atrophic condition of skin Hair loss Alopecia, unspecified documented in this encounter Care Teams Range Scientist Relationship Specialty Start Date End Date Barbara, Susan Mobley APRN [address] [place] [address] PCP - General Internal Medicine 09/15/23 documented as of this encounter
--- OUTSIDE RECORDS SUMMARY | 2024-03-20 11:51 | XMS_ITS | Encounter Summary ---
[place] [address] Care Team Providers Care Photographer Model Name Role Phone Susan Jimenez APRN Primary Care Provider [phone]- [phone] Encounter Details Date Type Department Care Team (Late st Contact Info) Description 12/16/2023 [place] [id number] Tova Harvey Social History Tobacco Use Types [...] encounter Miscellaneous Notes * Telephone Encounter - Paula Mireles - 12/23/2023 12:50 PM EDT Patient calling in 12:50 PM 12/23/23 asking about whether the prior authorization has been requested by Urology Department for the CT Chest wo Contrast (Generic) (Order [id number]) , patient has called more than 3x now, and is anxious to get this approved due to an upcoming insurance change hoping to get the Imaging schedule prior to December 29. * Telephone Encounter - Giovanni Valdovinos - 12/16/2023 3:27 PM EDT Patient called back in response to vm, unable to reach department at time of call. Please call patient to assist. documented in this encounter Plan of Treatment Upcoming Encounters Date Type Department Care Team (Late st Contact Info) Description 04/13/2024 3:20 PM EST Office Visit Dermatology at [address] [place] [address] Felicitas Llanes MD [facility] [place] [address] 04/26/2024 4:00 PM EST Office Visit [place] [address] Denia Xiao APRN [facility] [place] [address] documented as of this encounter Goals Goal Patient Goal Type Associated Problems Recent Progress Patient-Stated? Author movement Exercise No Arsh So Note: Try cardio chair exercises. Health Director Call will send links to videos. Self monitoring [...] the pause (STOP, and urge surfing. Health Director Call will mail hand-outs. documented as of this encounter Visit Diagnoses Not on filedocumented in this encounter Care Teams Photographer Model Relationship Specialty Start Date End Date Barbara, Susan Mobley APRN [address] [place] [address] PCP - General Internal Medicine 09/15/23 documented as of this encounter
--- OUTSIDE RECORDS SUMMARY | 2024-03-20 11:51 | XMS_ITS | Encounter Summary ---
Author Organization [facility] [place] [address] Care Team Providers Care Behavioral Health Therapist Name Role Phone Susan Jimenez APRN Primary Care Provider +1- [phone] Reason for Referral * Diagnostic Test (Routine) - Pending Review Specialty Diagnoses / Procedures Referred By Yury thornton Referred To Contact Radiology Diagnoses Right kidney mass Procedures CT Urogram Denia Xiao APRN [facility] [place] [place] [address] Referral ID Status Reason Start Date Expiration Date Visits Requested Visits Authorized [id number] Pending Review Specialty Service Requested 12/02/2023 05/31/2025 1 1 Encounter Details Date Type Department Care Team (Late st Contact Info) Description 12/02/2023 Orders Only Neph[place] [address] Denia Xiao APRN [facility] [place] [place] [address] Right kidney mass Social History Tobacco Use Types Packs/Day [...] at [facility] [address] [place] [address] Felicitas Llanes MD [facility] DR [address] [place] [address] 04/26/2024 4:00 PM EST Office Visit Neph[place] [address] Denia Xiao APRN [facility] [place] [place] [address] Scheduled Orders Name Type Priority Associated Diagnoses Orde r Schedule CT Urogram Imaging Routine Right kidney mass Expected: 12/02/2023 (Approximate), Expires: 05/31/2025 documented as of this encounter Goals Goal Patient Goal Type Associated Problems Recent Progress Patient-Stated? Author movement Exercise No Arsh So Note: Try cardio chair exercises. Health Peoplesoft Functional Analyst will send links to videos. Self [...] the pause (STOP, and urge surfing. Health Peoplesoft Functional Analyst will mail hand-outs. documented as of this encounter Visit Diagnoses Diagnosis Right kidney mass Unspecified disorder of kidney and ureter documented in this encounter Care Teams Behavioral Health Therapist Relationship Specialty Start Date End Date Barbara, Susan Mobley APRN [address] [place] [address] PCP - General Internal Medicine 09/15/23 documented as of this encounter
--- OUTSIDE RECORDS SUMMARY | 2024-03-20 11:51 | XMS_ITS | Encounter Summary ---
[place] [address] Care Team Providers Care Pet Care Worker Name Role Phone Susan Jimenez APRN Primary Care Provider +1- [phone] Encounter Details Date Type Department Care Team (Latest Contact Info) Description 11/13/2023 11:25 AM EDT Laboratory Appointment Lab [address] [place] [address] Serum creatinine raised Social History Tobacco Use Types Packs/Day Years [...] 3:20 PM EST Office Visit Dermatology at [facility] [address] [place] [address] Felicitas Llanes MD [facility] [address] [address] 04/26/2024 4:00 PM EST Office Visit Nephrology Hypertension at [facility] [place] [phone] Denia Xiao APRN [facility] [place] [address] documented as of this encounter Goals Goal Patient Goal Type Associated Problems Recent Progress Patient-Stated? Author movement Exercise No Arsh So Note: Try cardio chair exercises. Health Storeroom Keeper will send links to videos. Self monitoring [...] the pause (STOP, and urge surfing. Health Storeroom Keeper will mail hand-outs. documented as of this encounter Procedures Procedure Name Priority Date/Time Associated Diagnosis Comments PTH Routine 11/13/2023 11:13 AM EDT Serum creatinine raised CYSTATIN C Routine 11/13/2023 11:13 AM EDT Serum creatinine raised PROTEIN/CREATININE RATIO, URINE Routine 11/13/2023 11:13 AM EDT Serum creatinine raised U ALBUMIN/CRE RATIO Routine 11/13/2023 1 1:13 AM EDT Serum creatinine raised VITAMIN D, 25-HYDROXY Routine 11/13/2023 11:13 AM EDT Serum creatinine raised URINALYSIS WITH REFLEX CULTURE Routine 11/13/2023 11:13 AM EDT Serum creatinine raised CBC (WITH DIFF) Routine 11/13/2023 11:13 AM EDT Serum creatinine raised PHOSPHORUS Routine 11/13/2023 11:13 AM EDT Serum creatinine raised MAGNESIUM Routine 11/13/2023 11:13 AM EDT Serum creatinine raised ALBUMIN LEVEL Routine 11/13/2023 11:13 AM EDT Serum creatinine raised BASIC METABOLIC PANEL Routine 11/13/2023 11:13 AM EDT Serum creatinine raised documented in this encounter Results * Cystatin C (11/13/2023 11:13 AM EDT) Pathologist [facility] Cystatin C May 1.10 0.67 - 1.21 mg/L 11/14/2023 7:08 PM EDT [facility] Comment: Cystatin C Egfr May 64 >60 mL/min/BSA 11/14/2023 7:08 PM EDT [facility] Comment: Estimated GFR calculated using the CKD-EPI [...] 11/13/2023 11:13 AM EDT Narrative [facility] - 11/14/2023 7:08 PM EDT Test Performed by: [address] [address] Mangle Press Catcher: Myesha Holt Ph.D.; CLIA# [id number] Denia Xiao APRN LAB SEND OUT OR DERABLES [facility] [address] [place] [address], [facility] * Protein/Creatinine Ratio, urine (11/13/2023 11:13 AM EDT) [facility] Protein, Urine <4 0 - 12 mg/dL 11/13/2023 12:11 PM EDT [facility] Creatinine, Urine 34 mg/dL 11/13/2023 12:11 PM EDT [facility] Protein / Creatinine Ratio, Urine <0.1 ratio 11/13/2023 12:11 PM EDT [facility] Urine URINE SPECIMEN / Unknown Non Blood Collection / Unknown 11/13/2023 11:13 AM EDT 11/13/2023 11:13 AM EDT Denia Xiao APRN URINE ORDERABLE S Performing Organization Address City/[facility]/ZIP Co de Phone Number [facility] [place] [address] * U Albumin/Cre Ratio (11/13/2023 11:13 AM EDT) Albumin, Urine <3.0 mg/L 11/13/2023 12:11 PM EDT [facility] Creatinine, Urine 34 mg/dL 11/13/2023 12:11 PM EDT [facility] Albumin / Creatinine Ratio, Urine 11/13/2023 12:11 PM EDT [facility] Comment:Not Calculated. Urine URINE SPECIMEN / Unknown Non Blood Collection / Unknown 11/13/2023 11:13 AM EDT 11/13/2023 11:13 AM EDT Denia Xiao APRN URINE ORDERABLE S Performing Organization Address City/[facility] Co de Phone Number [facility] [place] [address] * Vitamin D, 25-Hydroxy (11/13/2023 11:13 AM EDT) Vitamin D Total 25 OH 44 21 - 100 ng/ml 11/14/2023 3:46 PM EDT [facility] Vitamin D Total 25 OH Interp Sufficient 11/14/2023 3:46 PM EDT [facility] Blood VENOUS BLOOD SPECIMEN / Unknown Venipuncture / Unknown 11/13/2023 11:13 AM EDT 11/13/2023 11:13 AM EDT Denia Xiao COMMERCIAL HVAC SERVICE TECHNICIAN CHEMISTRY ORDER LOLITA [facility] [place] [address] * Urinalysis with reflex Culture (11/13/2023 11:13 AM EDT) Glucose, Urine Dipstick Negative Negative 11/13/2023 11:47 AM EDT [facility] Protein, Urine Dipstick Negative Negative 11/13/2023 11:47 AM EDT [facility] Bilirubin, Urine Dipstick Negative Negative 11/13/2023 11:47 AM [facility] Comment:Clinical correlation required for positive Urine Bilirubin results as false positive may occur with some drugs and drug related products. If a false positive is suspected a serum total bilirubin should be considered if clinically indicated. Urobilinogen, Urine Dipstick Normal Normal, 0.2 mg/dL, 1.0 mg/dL 11/13/2023 11:47 AM [facility] pH, Urine (dipstick) 7.5 5.0 - 8.0 11/13/2023 11:47 AM [facility] Blood, Urine Dipstick Negative Negative 11/13/2023 11:47 AM [facility] Ketone, Urine Dipstick Negative Negative 11/13/2023 11:47 AM [facility] Nitrite, Urine Dipstick Negative Negative 11/13/2023 11:47 AM [facility] Leukocytes, Urine Dipstick Negative Negative 11/13/2023 11:47 AM [facility] Specific [place] Urine Automated 1.011 1.005 - 1.030 11/13/2023 11:47 AM [facility] Appearance, Urine Dipstick Clear Clear 11/13/2023 11:47 AM [facility] Color, Urine Dipstick Yellow Yellow, Dark Yellow 11/13/2023 11:47 AM [facility] Urine URINE SPECIMEN OBTAINED BY CLEAN CATCH PROCEDURE / Unknown Non Blood Collection / Unknown 11/13/2023 11:13 AM EDT 11/13/2023 11:13 AM EDT Denia Xiao APRN URINE ORDERABLE S [facility] [place] [address] * PTH (11/13/2023 11:13 AM EDT) Parathyroid Hormone 36 15 - 65 pg/mL 11/13/2023 11:52 AM EDT [facility] Blood VENOUS BLOOD SPECIMEN / Unknown Venipuncture / Unknown 11/13/2023 11:13 AM EDT 11/13/2023 11:13 AM EDT Denia Xiao APRN CHEMISTRY ORDER LOLITA Performing Organization Address City/[facility]/ZIP Co de Phone Number [facility] [place] [address] * Magnesium (11/13/2023 11:13 AM EDT) Magnesium 0.92 0.69 - 1.07 mMol/L 11/13/2023 11:56 AM EDT [facility] Blood VENOUS BLOOD SPECIMEN / Unknown Venipuncture / Unknown 11/13/2023 11:13 AM EDT 11/13/2023 11:13 AM EDT Denia Xiao APRN CHEMISTRY ORDER LOLITA [facility] [place] [address] * Phosphorus (11/13/2023 11:13 AM EDT) Phosphorus 4.1 2.5 - 4.5 mg/dL 11/13/2023 11:56 AM EDT [facility] Blood VENOUS BLOOD SPECIMEN / Unknown Venipuncture / Unknown 11/13/2023 11:13 AM EDT 11/13/2023 11:13 AM EDT Denia Xiao APRN CHEMISTRY ORDER OLLITA [facility] [place] [address] * (ABNORMAL) CBC (with Diff) (11/13/2023 11:13 AM EDT) White Blood Cell 8.17 4.00 - 9.50 x10(3)/mc L 11/13/2023 11:33 AM EDT [facility] Red Blood Cell 4.01 4.00 - 5.21 x10(6)/mc L 11/13/2023 11:33 AM EDT [facility] Hemoglobin 12.5 11.7 - 15.5 g/dL 11/13/2023 11:33 AM EDT [facility] Hematocrit 38.5 35.7 - 45.8 % 11/13/2023 11:33 AM EDT [facility] Mean Cell Volume 96.0(H) 82.6 - 94.4 fL 11/13/2023 11:33 AM T [facility] Mean Cell Hemoglobin 31.2 27.1 - 32.0 pg 11/13/2023 11:33 AM EDT [facility] Mean Cell Hemoglobin Concentration 32.5 31.7 - 35.0 g/dL 11/13/2023 11:33 AM EDT [facility] Platelet 246 145 - 357 x10(3)/mc L 11/13/2023 11:33 AM EDT [facility] Mean Platelet Volume 9.3 7.6 - 12.9 fL 11/13/2023 11:33 AM EDT [facility] RDW Standard Deviation 49.3(H) 37.0 - 46.0 fL 11/13/2023 11:33 [facility] coefficient of variation 14.0 11.5 - 14.1 % 11/13/2023 11:33 AM [facility] NRBC% auto 0.0 % 11/13/2023 11:33 AM [facility] NRBC Absolute 0.00 0.00 - 0.00 x10(3)/mc L 11/13/2023 11:33 AM [facility] Neutrophil % 60.2 % 11/13/2023 11:33 AM [facility] Neutrophil Absolute (ANC) - Automated 4.91 1.70 - 6.10 x10(3)/mc L 11/13/2023 11:33 AM [facility] Lymph % 32.4 % 11/13/2023 11:33 AM [facility] Lymph Absolute 2.65 0.90 - 3.20 x10(3)/mc L 11/13/2023 11:33 AM [facility] Monocyte % 4.9 % 11/13/2023 11:33 AM [facility] Monocyte Absolute 0.40 0.30 - 0.90 x10(3)/mc L 11/13/2023 11:33 AM [facility] Eos % 1.8 % 11/13/2023 11:33 AM [facility] Eos Absolute 0.15 0.00 - 0.40 x10(3)/mc L 11/13/2023 11:33 AM [facility] Basophil % 0.5 % 11/13/2023 11:33 AM [facility] Baso Absolute 0.04 0.00 - 0.10 x10(3)/mc L 11/13/2023 11:33 AM [facility] Immature Gran % 0.2 % 11:33 AM [facility] Immature Gran Absolute 0.02 0.00 - 0.04 x10(3)/mc L 11/13/2023 11:33 AM [facility] Blood VENOUS BLOOD SPECIMEN / Unknown Venipuncture / Unknown 11/13/2023 11:13 AM EDT 11/13/2023 11:13 AM EDT Denia Xiao APRN HEMATOLOGY NATYE KENYATAT [facility] [place] [address] * (ABNORMAL) Basic Metabolic Panel (11/13/2023 11:13 AM EDT) Glucose 90 65 - 99 mg/dL 11/13/2023 11:56 AM EDT [facility] Comment: Fasting Glucose Interpretive Criteria: Normal: 65-99 mg/dL ?? Prediabetes: 100-125 mg/dL ?? Consistent with Diabetes Mellitus: > or = 126 mg/dL ?? Classification and Diagnosis of Diabetes: Standards of Care in Diabetes - 2022. Diabetes Care 202; 46:S19. Fasting is defined as no caloric intake for at least 8 hours. Blood Urea Nitrogen 18 8 - 18 mg/dL 11/13/2023 11:56 AM T [facility] Creatinine 0.80 0.70 - 1.20 mg/dL 11/13/2023 11:56 AM [facility] Sodium 135 135 - 145 mMol/L 11/13/2023 11:56 AM [facility] Potassium 3.8 3.5 - 5.0 mMol/L 11/13/2023 11:56 AM [facility] Chloride 97(L) 98 - 107 mMol/L 11/13/2023 11:56 AM [facility] Carbon Dioxide 28 22 - 31 mMol/L 11/13/2023 11:56 [facility] Anion Gap 10 5 - 15 mMol/L 11/13/2023 11:56 AM [facility] Calcium 9.4 8.5 - 10.5 mg/dL 11/13/2023 11:56 AM [facility] Est Glomerular Filtration Rate - Female 84 mL/min/1. 73 m?? 11/13/2023 11:56 AM EDT [facility] Comment: This patient's estimated GFR [...] Foundation Fasting Status Yes 11/13/2023 11:56 AM EDT [facility] Blood VENOUS BLOOD SPECIMEN / Unknown Venipuncture / Unknown 11/13/2023 11:13 AM EDT 11/13/2023 11:13 AM EDT Denia Xiao APRN CHEMISTRY ORDER LOLITA [facility] [address] * Albumin Level (11/13/2023 11:13 AM EDT) Albumin 4.4 3.2 - 5.2 g/dL 11/13/2023 11:56 AM EDT [facility] Blood VENOUS BLOOD SPECIMEN / Unknown Venipuncture / Unknown 11/13/2023 11:13 AM EDT 11/13/2023 11:13 AM EDT Denia Xiao APRN CHEMISTRY ORDER LOLITA [facility] [address] documented in this encounter Visit Diagnoses Diagnosis Serum creatinine raised Other nonspecific findings on examination of blood documented in this encounter Care Teams Pet Care Worker Relationship Specialty Start Date End Date Barbara, Susan Mobley APRN [address] [facility] [address] [place] [address] PCP - General Internal Medicine 09/15/23 documented as of this encounter
--- OUTSIDE RECORDS SUMMARY | 2024-03-20 11:51 | XMS_ITS | Encounter Summary ---
Author Organization Formerly [facility] [place] [address] Care Team Providers Care Bath Mix Operator Name Role Phone Susan Jimenez APRN Primary Care Provider +1- [phone] Encounter Details Date Type Department Care Team (Late st Contact Info) Description 11/28/2023 Ancillary Procedure Radiology Library at [facility] [place] [address] Susan Jimenez APRN [address] [place], [place] [address] Social History Tobacco Use Types Packs/Day Years Used Date Smoking Tobacco: Former Smokeless Tobacco: Never Comments:quit 1990 Alcohol Use Standard Drinks/Week Comments Yes 0 (1 standard drink = 0.6 oz pur e alcohol) <1 per day [facility] Inpatient Questions Answer Date [...] 3:20 PM EST Office Visit Dermatology at [facility] [address] [place] [address] Felicitas Llanes MD [facility] [address] [place] [address] 04/26/2024 4:00 PM EST Office Visit Nephrology [place] [address] Denia Xiao APRN [facility] [place] [address] documented as of this encounter Goals Goal Patient Goal Type Associated Problems Recent Progress Patient-Stated? Author movement Exercise No Arsh So Note: Try cardio chair exercises. Health Apartment Leasing Agent will send links to videos. Self monitoring [...] the pause (STOP, and urge surfing. Health Apartment Leasing Agent will mail hand-outs. documented as of this encounter Procedures Procedure Name Priority Date/Time Associated Diagnosis Comments FILM LIBRARY STORAGE ONLY ULTRASOUND STUDY Routine 11/28/2023 12:00 AM EDT documented in this encounter Results * Film Library- Storage Only Ultrasound Study (11/28/2023 12:00 AM EDT) Narrative [facility] - 12/10/2023 2:24 PM EDT This exam is auto-finalizing. It's purpose is for storage only. Susan Jimenez APRN IMG FILM LIBRARY O RDERABLES Performing Organization Address City/State/[facility] Co de Phone Number [place], [place] documented in this encounter Visit Diagnoses Not on filedocumented in this encounter Care Teams Bath Mix Operator Relationship Specialty Start Date End Date Barbara, Susan Mobley APRN [address] [place] [address] PCP - General Internal Medicine 09/15/23 documented as of this encounter
--- OUTSIDE RECORDS SUMMARY | 2024-03-20 11:51 | XMS_ITS | Encounter Summary ---
[place] [address] Care Team Providers Care Atmospheric Physicist Name Role Phone Susan Jimenez APRN Primary Care Provider +1- [phone] Encounter Details Date Type Department Care Team (Late st Contact Info) Description 01/28/2024 Telephone Ne[place] [phone] Dorcas Colin Social History Tobacco Use Types Packs/Day Years Used Date Smoking Tobacco: Former Smokeless Tobacco: Never Comments:quit 1990 Alcohol Use Standard Drinks/Week Comments Yes 0 (1 standard drink = 0.6 oz pur e alcohol) <1 per day [facility] Inpatient Questions Answer Date Recorded Does [...] encounter Miscellaneous Notes * Telephone Encounter - Dorcas Colin - 01/28/2024 8:58 AM EDTSummary: neph apt LM for pt to call back an mary. Apt. With Heather MobleyKaren In March documented in this encounter Plan of Treatment Upcoming Encounters Date Type Department Care Team (Late st Contact Info) Description 04/13/2024 3:20 PM EST Office Visit Dermatology at [facility] [address] [place] [address] Felicitas Llanes MD [facility] [address] [address] 04/26/2024 4:00 PM EST Office Visit Nephrology Hypertension at [facility] [place] [address] Denia Xiao APRN [facility] [place] [address] documented as of this encounter Goals Goal Patient Goal Type Associated Problems Recent Progress Patient-Stated? Author movement Exercise No Arsh So Note: Try cardio chair exercises. Health Jointer Submarine Cable will send links to videos. Self monitoring [...] the pause (STOP, and urge surfing. Health Jointer Submarine Cable will mail hand-outs. documented as of this encounter Visit Diagnoses Not on filedocumented in this encounter Care Teams Atmospheric Physicist Relationship Specialty Start Date End Date Barbara, Susan Mobley APRN [address] [place] [address] PCP - General Internal Medicine 09/15/23 documented as of this encounter
--- OUTSIDE RECORDS SUMMARY | 2024-03-20 11:51 | XMS_ITS | Encounter Summary ---
Author Organization Formerly [facility] [place] [address] Care Team Providers Care Brine Process Operator Name Role Phone Susan Jimenez APRN Primary Care Provider +1- [phone] Encounter Details Date Type Department Care Team (Late st Contact Info) Description 12/10/2023 2:30 PM EDT Ancillary Procedure Radiology Library at [facility] [place] [phone] Susan Jimenez APRN [address] [place], [place] [id number] Social History Tobacco Use Types Packs/Day Years [...] 3:20 PM EST Office Visit Dermatology at [facility] [address] [place] [address] Felicitas Llanes MD [facility] DR [address]STA [place] [address] 04/26/2024 4:00 PM EST Office Visit [place] [address] Denia Xiao APRN [facility] [place] [address] documented as of this encounter Goals Goal Patient Goal Type Associated Problems Recent Progress Patient-Stated? Author movement Exercise No Arsh So Note: Try cardio chair exercises. Health Pharmacy Picking Tech will send links to videos. Self monitoring [...] the pause (STOP, and urge surfing. Health Pharmacy Picking Tech will mail hand-outs. documented as of this encounter Procedures Procedure Name Priority Date/Time Associated Diagnosis Comments FILM LIBRARY STORAGE ONLY CT ABDOMEN AND PELVIS Routine 12/10/2023 2:27 PM EDT documented in this encounter Results * Film Library- Storage Only CT Abdomen & Pelvis (12/10/2023 2:27 PM EDT) Narrative [facility] - 12/10/2023 2:27 PM EDT This exam is auto-finalizing. It's purpose is for storage only. Susan Jimenez APRN IMG FILM LIBRARY O RDERABLES Performing Organization Address City/State/[facility] Co de Phone Number [place], [place] documented in this encounter Visit Diagnoses Not on filedocumented in this encounter Care Teams Brine Process Operator Relationship Specialty Start Date End Date Barbara, Susan Mobley APRN [address] [place] [address] PCP - General Internal Medicine 09/15/23 documented as of this encounter
--- OUTSIDE RECORDS SUMMARY | 2024-03-20 11:51 | XMS_ITS | Encounter Summary ---
Author Organization [facility] [place] [address] Care Team Providers Care Wet Chemistry Analyst Name Role Phone BarbaraSusan APRN Primary Care Provider +1- [phone] Reason for Referral * Consultation (Routine) - Closed Specialty Diagnoses / Procedures Referred By Yury thornton Referred To Contact Urology Diagnoses Renal mass, right Denia Xiao APRN [facility] [place] [address] [facility] [place] [address] Referral ID Status Reason Start Date Expiration Date V isits Requested Visits Authorized [id number] Closed Consult, Test & Treat 12/11/2023 12/10/2024 1 1 Encounter Details Date Type Department Care Team (Late st Contact Info) Description 12/11/2023 Orders Only Neph[place] [address] Denia Xiao APRN [facility] [place] [address] Renal mass, right Social History Tobacco Use Types Packs/Day Years [...] 3:20 PM EST Office Visit Dermatology at [facility] [address] [place] [address] Felicitas Llanes MD [facility] [address] [place] [address] 04/26/2024 4:00 PM EST Office Visit Neph[place] [address] Denia Xiao APRN [facility] [place] [address] Scheduled Referrals Name Type Priority Associated Diagnoses Orde r Schedule Referral to Urology Outpatient Referral Routine Renal mass, right Ordered: 12/11/2023 documented as of this encounter Goals Goal Patient Goal Type Associated Problems Recent Progress Patient-Stated? Author movement Exercise No Arsh So Note: Try cardio chair exercises. Health Gum Machine Filler will send links to videos. Self monitoring [...] the pause (STOP, and urge surfing. Health Gum Machine Filler will mail hand-outs. documented as of this encounter Visit Diagnoses Diagnosis Renal mass, right Unspecified disorder of kidney and ureter documented in this encounter Care Teams Wet Chemistry Analyst Relationship Specialty Start Date End Date Barbara, Susan Mobley APRN [address] [place] [address] PCP - General Internal Medicine 09/15/23 documented as of this encounter
--- OUTSIDE RECORDS SUMMARY | 2024-03-20 11:52 | XMS_ITS | Encounter Summary ---
Author Organization [facility] [place] [address] Care Team Providers Care Detailer Name Role Phone Carolyn Christianson APRN Primary Care Provider [phone] Encounter Details Date Type Department Care Team (Latest Contact Info) Description 08/29/2022 Travel Social History Tobacco Use Types Packs/Day Years Used Date Smoking Tobacco: Former Smokeless Tobacco: Never Comments:quit 1990 Alcohol Use Standard Drinks/Week Comments Yes 0 (1 standard drink = 0.6 oz pur e alcohol) <1 per day Sex and Gender Information Value Date Recorded Sex Assigned at Not on file Gender Identity Not on file Sexual Orientation Not on file documented as of this encounter Plan of Treatment Upcoming Encounters Date Type Department Care Team (Late st Contact Info) Description 04/13/2024 3:20 PM EST Office Visit Dermatology at [facility] [address] [place] [address] Felicitas Llanes MD [facility] [address] [place] [address] 04/26/2024 4:00 PM EST Office Visit [place] [address] Denia Xiao APRN [facility] [place] [address] documented as of this encounter Goals Goal Patient Goal Type Associated Problems Recent Progress Patient-Stated? Author movement Exercise No Arsh So Note: Try cardio chair exercises. Health Dog Breeder will send links to videos. Self monitoring [...] the pause (STOP, and urge surfing. Health Dog Breeder will mail hand-outs. documented as of this encounter Visit Diagnoses Not on filedocumented in this encounter Care Teams Detailer Relationship Specialty Start Date End Date Carolyn Christianson APRN PCP - General Family Medicine 12/21/20 10/02/22 documented as of this encounter
--- OUTSIDE RECORDS SUMMARY | 2024-03-20 11:52 | XMS_ITS | Encounter Summary ---
Author [place] [address] Care Team Providers Care Power Sewing Machine Operator Name Role Phone Carolyn Christianson APRN Primary Care Provider [phone] Encounter Details Date Type Department Care Team (Late st Contact Info) Description 07/09/2022 Telephone [place] [id number] Tamara Knight Social History Tobacco Use Types Packs/Day Years [...] encounter Miscellaneous Notes * Telephone Encounter - Tamara Knight - 07/09/2022 1:26 PM EDT Liss called to find out what still remains outstanding in order for her to get her first appt with the bariatric team. As of today we are still in need of the following and she will work on getting the items to us 1. Annual exam & PCP letter of support- she is scheduled for 07/18 2. Her last colo results 3. Copy of her current mammogram results 4. Sleep clinic follow-up notes and cpap compliance download showing 70 % or higher compliance for the last 14 days She will be in touch once she has collected all the information- our fax # was provided to her to have the documents sent to us documented in this encounter Plan of Treatment Upcoming Encounters Date Type Department Care Team (Late st Contact Info) Description 04/13/2024 3:20 PM EST Office Visit Dermatology at [facility] [address] [place] [address] Felicitas Llanes MD [facility] [address] [place] [address] 04/26/2024 4:00 PM EST Office Visit Neph[place] [address] Denia Xiao APRN [facility] [place] [address] documented as of this encounter Goals Goal Patient Goal Type Associated Problems Recent Progress Patient-Stated? Author movement Exercise No Arsh So Note: Try cardio chair exercises. Health Fur Weigher will send links to videos. Self monitoring [...] the pause (STOP, and urge surfing. Health Fur Weigher will mail hand-outs. documented as of this encounter Visit Diagnoses Not on filedocumented in this encounter Care Teams Power Sewing Machine Operator Relationship Specialty Start Date End Date Carolyn Christianson APRN PCP - General Family Medicine 12/21/20 10/02/22 documented as of this encounter
--- OUTSIDE RECORDS SUMMARY | 2024-03-20 11:52 | XMS_ITS | Encounter Summary ---
Author Organization Formerly [facility] [place] [address] Care Team Providers Care Dishing Machine Operator Name Role Phone Susan Jimenez APRN Primary Care Provider [phone]- [phone] Reason for Visit * Reason Comments Follow-up Encounter Details Date Type Department Care Team (Late st Contact Info) Description 10/25/2022 10:00 AM EDT Office [place] [address] Mellisa Rowland REGIONAL ECONOMIST [facility] [place] [address] Barbara Mai, HILLARY S/P gastric sleeve procedure; Disorder of iron metabolism Social History Tobacco Use Types Packs/Day Years Used Date Smoking Tobacco: Former Smokeless Tobacco: Never Comments:quit 1990 Alcohol Use Standard Drinks/Week Comments Yes 0 (1 standard drink = 0.6 oz pur e alcohol) <1 per day PENDING SALE TO [facility] Inpatient Questions Answer Date Recorded [...] Sign Reading Time Taken Comments Blood Pressure 98/54 10/25/2022 9:58 AM EDT Pulse 64 10/25/2022 9:58 AM EDT Temperature - - Respiratory Rate - - Oxygen Saturation 100% 10/25/2022 9:58 AM EDT Inhaled Oxygen Concentration - - Weight 115 kg (253 lb 8 oz) 10/25/2022 9:58 AM E DT Height 165.1 cm (5' 5) 10/25/2022 9:58 AM EDT Body Mass Index 42.18 10/25/2022 9:58 AM EDT documented in this encounter Patient Instructions * Patient Instructions* Mellisa Rowland APRN - 10/25/2022 10:00 AM EDT Bariatric Surgery Program First Post-operative Follow up visit Contact information: [facility] patient support partner: Mayuri: [phone] and Tamara [phone] Dietitians: [phone] Surgeons/ nurse practitioners: [phone] Nurse line: [phone] Dear Liss, Thank you for following up with the Bariatric Surgery Program at [facility]. Please review your medical note from today's visit for specific information we discussed. Next follow up visit: at 4 months post-op. Testing: Labwork will be done at your 4 month post-op appointment. The lab orders will be in the system before your visit. The main lab is at [facility] and does not require an appointment. The hours are Friday through Friday, 6:45 am to 6:00 pm. Here's the link to [facility] Lab hours and locations, in case one of the other locations is more convenient for you: [email or web address] If you have labwork done by your primary career technical education instructor before that date, please have a copy sent to the Bariatric Surgery Program. Post surgery Medications: 1. Continue medication to prevent ulcer (likely a PPI like omeprazole) until you are at least 3 months post surgery, or as indicated by your primary care doctor. 2. If you have a gallbladder, continue to take ursodiol for a total of 6 months after surgery to prevent gallstones from forming, and to shrink any gallstones that may be present. Vitamins/Nutrition/Activity Recommendations: Please see your visit note for personalized recommendations General Supplement recommendations: Multivitamins with minerals twice daily- needs to be an under 50 multivitamin that contains iron. Vitamin B12 500 mcg by mouth once daily Calcium citrate 500-600 mg with Vitamin D 400 units twice daily (600 mg in AM and 600 mg in PM- 2 pills twice a day) (or 1 chewable twice a day) Iron supplement: as specified in today's visit Vitamin D: as specified in today's visit General Nutrition recommendations: 1,000-1,200 calories per day (300 calories per meal, 100 calories per snack, 1-2 snacks per day) 60 grams of protein per day (20 grams per meal) 48-64 oz of non-caloric and hydrating fluids per day (6-8, 8 oz cups) Do not drink with meals- pushes food through more quickly, can cause upset stomach Activity: Aim for 30 minutes of exercise daily, 5 days a week of both cardio and strength training exercises. Skinfold care: Cleanse area with soap and water. Blow dry area on low setting with physical education department chair. Apply absorbent powder such as Gold Andujar and Desinex Apply cotton strips (such as strips from old sheets) or larger size cotton underwear folded beneathskin folds to act as a wick. Do not apply anahi cloth toweling which can cause further irritation Try combination of over the counter hydrocortisone cream with over the counter antifungal cream such as lotrimin twice a day for 2 weeks. If your symptoms do not improve you may require prescription of anti-fungal cream/powder. Follow up with PCP if symptoms worsen/fail to improve with above strategies. Constipation: Increase fiber, fluids and fitness. Yerba Prima is a fiber supplement that comes in capsule form. Additionally, consider trying 1 capful daily of miralax daily (preferably at night) with a goal of at least 1 BM per day. You can increase the dose as needed every 2-3 days (by adding on 1 capful either morning or night) without safety concerns, noting that individual tolerance becomes limited by loose stools and bloating with doses higher than 2 capfuls twice daily. Please call if you do not have a BM after 3 days. On days with loose stools, we recommend reducing miralax to 1/2 capful daily but continue to take miralax every day Nausea: Common causes for nausea post bariatric surgery are: Eating too fast, eating too much, drinking with meals, or not chewing well enough. Be sure to eat slowly and chew food well. Take at least30 minutes or more to eat a meal. Call if symptoms worsen, fail to improve, or if you have difficulty keeping food or fluid down. Alcohol: is not recommended for at least 6-12 months after surgery. Alcohol is absorbed much fasterand stays in your system much longer post bariatric surgery and as a result there is an increase risk of alcohol misuse/abuse after bariatric surgery. It should be used sparingly, no more than one drink per occasion, no more than 2 drinks a week. Alcohol is toxic to the liver, a source of empty calories, it can cause ulcers, vitamin and mineral deficiencies, as well as impair digestion and absorption of nutrients. Call or follow up with your therapist or primary care provider if you are struggling or think your alcohol intake is a problem. control for women of child bearing age: control is recommended for at least 18-24 months after surgery. f non-prescribed drugs and treet drugs is unsafe Anti-inflammatory medications (NSAIDs) such as Ibuprofen (Advil), Aleve (Naproxen), Excedrin, [place] should be avoided for at least the first 2 months after surgery. After that they should be used sparingly very sparingly as they increase the risk of ulcer and bleeding. A bone mineral density scan (DEXA) is recommended every 2 years after bariatric surgery. Please schedule this study through your primary care provider's office. Hair Loss: is associated with rapid weight loss and is seen approximately 3 to 6 months after surgery and can last 3 to 6 months. It is almost always temporary. Eating a healthy diet with 60 grams ofprotein per day and taking your multivitamin with minerals will help. Sleep Apnea: If you have a history of sleep apnea and have a CPAP/BiPAP, please be sure to follow up with the sleep center to confirm your pressures and determine if continued use of CPAP/BiPAP is recommended. Potential lifetime risks of gastric bypass include risk of ulcer, which is increased with alcohol and antiinflammatory medications and internal hernia (less than 5%), which may be increased with higher than predicted weight loss. Potential lifetime risks of sleeve gastrectomy include developed heartburn or severe reflux. Call us: If you have concerns. If you have unexplained abdominal pain if you see blood in your stool or vomit blood If you have prolonged vomiting Post Surgery Support Group: Our post surgery support group meets at [facility] on the first Friday of every month from 1:00 PM-2:00 PM, call to sign up! Nutrition and Activity apps- Baritastic, My Fitness Pal, Lose It, My Plate Internet resources: www.R[employer] www.StormPins www.bariatriceaJetabroad.WUT www.Swiftype/blog [facility] facebook page: https://www.facebook.[email or web address]/[email or web address] Books & Magazines: - Recipes for Life After Weight Loss Surgery by Saskia Dale - Shrink Yourself by Dr Robel Rodriguez - Eating Well - www.Telegent Systems - Cooking Light- www.cookinglight.WUT Anxiety: The Happiness Trap by Duke Jenkins The Mindfulness and acceptance workbook for anxiety By Sandor Rosario. Mindful eating: What are you Hungry For? By Simon Holloway The Mindful Diet by Maryjane Wheatley and the [facility] group. 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 Lives with dog, Latisha, 6 yo rescue. Has 2 children, 4 grandchildren. Social support: Coworkers, family, children live and work close by, mother. Hobbies: enjoys cooking, learning to brenda, going to [employer] at 2 years post-op: be at a weight where I feel comfortable walking up hill, [facility], go sightseeing, enjoy more activities. Goal weight: under 200# Medical Hx: Class III obesity, Depression, OA, TESSA and Thyroid dz (Ning's thyroiditis), elevated BP without dx. OBJECTIVE: Date of Bariatric Surgery: 10/08/22 w/ Dr. Borrero Type of Bariatric Surgery: Laparoscopic Sleeve Gastrectomy Weight History: Pt has 5% wgt loss req. Date Weight (lbs) HT BMI Comments 2021 312# Highest Weight 12/20/21 281# 65 46.8 Initial program weight 08/19/22 274# 65 45.7 1st pre-op visit EWL % Surgery 10/25/22 253# 17% 42.2 3 weeks post-op 4 months post-op [place] Body Weight (based on BMI of 25): 150 30-70% Excess Weight Loss: 237-184 ; 50% Excess Weight Loss: 212 MEDICATIONS: Vitamin/Mineral Supplements (reported by patient): Supplement Type Brand/Form Dosage/Amount Frequency Comments Multivitamin Flintstones with iron 1 pill Twice daily Ordered Fusion one per day w/ 45 mg iron Calcium Calcium citrate chews -Fusion 1 chew Twice daily Vitamin B12 none Iron Vitamin D3 none Food Allergies/Intolerances: Gluten and lactose sensitivity Tracking Intake: MFP Daily Oral Intake: Breakfast Protein powder,-collagen Cream of wheat, Fairlife protein drink, decaf coffee AM Snack Lunch Ricotta bake, green beans PM Snack String cheese, FF refried beans Dinner Cottage cheese and pears HS Snack Protein- grams/day: 60+g Hydrating fluids - oz/day: 48 oz+ Protein water, fairlife, water, water w/ CL Soda: ETOH: Caffeine: none Meals per day: 3 Other: Vomiting/ regurgitation: no Nausea: no Constipation/diarrhea: constipation followed by diarrhea since surgery, advised pt to try Miralax Exercise: walking and recumbent biking 1x/ daily ASSESSMENT: Patient s/p bariatric surgery with 17% EWL. Pt is tolerating the diet and is meeting protein and fluid goals. Encouraged pt to continue tracking intake. Reviewed pt questions about stage 3/4 diet. Reviewed supplements, advised pt to take supplements as listed above. Encouraged increased exercise astolerated. PLAN: Evaluation by Mellisa Rowland APRN today. Provided support/encouragement and reinforced importance of meeting nutritional goals. Continue Stage 3 diet. Advance to Stage 4 diet starting 5 weeks post-op. Great work meeting protein and fluid goals Reviewed vitamin and mineral supplement recommendations. Multivitamin with minerals- Bariatric Multivitamin 1 pill per day Calcium citrate 500-600 mg with vitamin D twice daily. (2 pills twice per day or 1 chew twice daily) Follow-up in 3 months, sooner if requested. * Mellisa Rowland APRN - 10/25/2022 10:00 AM EDT [place] [address] Reason for visit: Bariatric Surgery Post Op Check Surgery Info: s/p sleeve gastrectomy with Dr. Borrero on 10/08/22. Pathology showed: DIAGNOSIS A - Portion of Stomach, excision: - Segment of gastric body/fundus with fundic gland polyp and mild chronic inflammation. - Immunostaining for H. pylori is negative. Subjective: Liss Mosley is s/p the above procedures, post operative course has been going well aside from increased blood pressure (followed up with PCP now back on antihypertensives). Port sites are healing . Tolerating foods/fluids overall, still learning what foods work better and pacing eating/drinking. Trying to make sure she is meeting protein/fluid requirements. Liss is struggling with intermittent constipation and diarrhea. Current Supplements: Multi-vitamin with minerals/iron twice daily (Flinstones but ordered Fusion 1 a day with 45 mg iron) Calcium citrate chews twice daily Primary care post op follow up visit: Pt was seen by PCP on last week. UC visit re: elevated BP. Pre-Bariatric Surgery Obesity related medical issues: Problem Baseline issue if checked Comments Diabetes/prediabetes/insulin resistance [] Taking Metformin for weight loss Metabolic syndrome or PCOS [] HTN [x] Taking Lisinopril GERD [] During only, currently on post op PPI for ulcer prevention Hyperlipidemia [] TESSA [x] Using CPAP with 100% compliance Musculoskeletal issues [x] OA knees, s/p R TKR, back pain - stable Liver Disease [] Other [] Post Bariatric Surgery Medications: Extended VTE prophylaxis post surgery Completed 10 day course of enoxaparin without incident. Post-discharge narcotic analgesic use None needed after hospital discharge. Ursodiol gallstone prophylaxis Taking as directed. PPI ulcer prophylaxis Taking as directed. Contraception postmenopausal. ROS: No Fever, chills, no nausea, no vomiting. Has not required anti-emetics. No Chest pain, SOB or palpitations. No bladder concerns or changes. BM are as above. Energy level is improving. Appetite: as expected, trying to meet protein/fluid requirements. Activity level: walking the dog, recumbent bike. Social history/support: mother, kids, coworkers. Health Habits: Tobacco: Never. ETOH: No alcohol since before surgery. NSAID use: None. 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 Dietary history/ exericse/ activity level: See dietitian note from today's visit for complete dietary evaluation. WT (lbs) BMI HT Highest wt Initial Pre-op visit 08/19/22 274 45.7 5'5 312 lbs 2020 (per patient) Post-op WT (lbs) BMI %EBW lost 10/25/22 253 42.2 17 Objective: BP 98/54 (BP Location (NBP): Right arm) Pulse 64 Ht 165.1 cm (5' 5) Wt 115 kg (253 lb 8 oz) SpO2 100% BMI 42.18 kg/m?? *Patient denies symptoms of low BP including dizziness. Physical Exam General: Alert, pleasant, NAD, appears well. Abdomen: Soft, non-distended, non-tender. Trochar sites are healing nicely. No heat, tenderness or drainage. Resp: No increased work of breathing. Speaking in full sentences. No cough/wheeze witnessed. Skin: No excess skin noted over abdomen. Skin is warm and dry. No rash noted on exam today. Fading ecchymosis noted. Psychiatric: Normal mood and affect. Appropriate eye contact. Assessment: Liss Mosley is s/p above procedures, with uneventful early post-operative course. Obesity related co-morbidities are improved/stable overall. -Continue following with PCP for support with blood pressure management (low in clinic today, but asymptomatic). Plan: Continue Ursodiol as recommended for 6 months to reduce the risk of gallstone formation during the period of rapid weight loss. Continue PPI therapy until at least 3 months post op to decrease the risk of ulcer formation and avoid NSAIDs. Discussed how to taper down/off. Bowel Function: reviewed bowel regimen and importance of movement and fluids. Recommend BM at leastevery other day. Consider miralax. Call if struggling. Sleep apnea: recommend follow up with sleep center to determine if CPAP settings need to be adjusted. Advised that hair loss due to rapid weight loss is typical 3-6 months post- surgery and should improve with time and adequate protein/ calorie intake. Avoid ETOH until 6-12 months post-operatively, and then should be used in small amounts Discussion re: importance of chewing food completely, taking time to eat, trying to avoid more complex foods at this time, food/fluids etc. See sand mixer operator note re: recommendations regarding vitamin and mineral supplementation, fluid intake and exercise. Additional vitamin and mineral supplement recommendations: as above. RTC in 3 months for next BSP follow up visit, with labs. Call/rtc sooner prn with questions/concerns or unexplained abdominal pain, prolonged nausea, vomiting or inability to hydrate Bariatric Program Summary report is availabe for patient's review via e- Mellisa Rowland APRN [facility] Bariatric Surgery Program RECOMMENDED BARIATRIC SURGERY PROGRAM POSTOPERATIVE FOLLOW-UP: Follow up: done at 4, 12 and 24 months, and yearly thereafter. High risk patients are evaluated on a more frequent basis. *Supplement recommendations: Multivitamin with minerals twice a day, B12 500 mcg once a day, calcium citrate 600 mg/400 units vitamin D twice a day, iron (ferrous fumarate, carbonyl iron taken with vitamin C 250 mg once a day) for menstruating females or those with DEMAR. Labwork: Hemogram, ferritin, iron (transferrin) saturation, iron, folate, B1, B12, D (25 hydroxy only), Intact PTH and comprehensive metabolic profile at 4, 12 and 24 months, and yearly. If labwork is done by the primary career technical education instructor: please send a copy to the Bariatric Surgery Program, General Surgery Clinic, [facility], or fax [phone] documented in this encounter Plan of Treatment Upcoming Encounters Date Type Department Care Team (Late st Contact Info) Description 04/13/2024 3:20 PM EST Office Visit Dermatology at [address] [address] Felicitas Llanes MD [facility] DR MO[place] [address] 04/26/2024 4:00 PM EST Office Visit Nephrology [place] [address] Denia Xiao APRN [facility] [place] [address] documented as of this encounter Goals Goal Patient Goal Type Associated Problems Recent Progress Patient-Stated? Author movement Exercise No Arsh So Note: Try cardio chair exercises. Health Engineering Writer will send links to videos. Self monitoring Lifestyle On track(2021 10:00 AM EST) Denia Galindo MD Note: Keep food log until you [...] the pause (STOP, and urge surfing. Health Engineering Writer will mail hand-outs. documented as of this encounter Results * Vitamin B12 (02/03/2023 2:14 PM EST) Vitamin B12 975 232 - 1,245 pg/mL [facility] Blood 02/03/2023 2:14 PM EST 02/03/2023 2:29 PM EST Narrative Resulting Agency Comment Spec In Lab Mellisa E De Witt REGIONAL ECONOMIST CHEMISTRY ORDERABL ES Performing Organization Address [facility]/ZIP Co de Phone Number [facility] [place] [address] * Vitamin D, 25-Hydroxy (02/03/2023 2:14 PM EST) Vitamin D Total 25 OH 52 21 - 100 ng/mL [facility] Vit D Interp Sufficient [facility] Blood 02/03/2023 2:14 PM EST 02/03/2023 2:29 PM EST Narrative Resulting Agency Comment Spec In Lab Mellisa E De Witt REGIONAL ECONOMIST CHEMISTRY ORDERABL ES Performing Organization Address [facility] Co de Phone Number [facility] [place] [address] * Vitamin B1, whole blood (02/03/2023 2:14 PM EST) Vit B1 Lvl Wb (JULY) 153 70 - 180 nmol/L [facility] Comment: ADDITIONAL INFORMATION This test was developed and its performance characteristics determined by [facility] in a manner consistent with CLIA requirements. This test has not been cleared or approved by the U.S. Food and Drug Administration. Test Performed by: [facility] - [address] [address] Iron Caster: Ganesh Henry M.D. Ph.D.; CLIA# [id number] Blood 02/03/2023 2:14 PM EST 02/03/2023 4:39 PM EST Narrative Resulting Agency Comment Spec In Lab Mellisa E Kashif REGIONAL ECONOMIST LAB SEND OUT ORDER LOLITA Performing Organization Address [facility] Co de Phone Number [facility] [place] [address] * PTH (02/03/2023 2:14 PM EST) Parathyroid Hormone 46 15 - 65 pg/mL [facility] Blood 02/03/2023 2:14 PM EST 02/03/2023 2:29 PM EST Narrative Resulting Agency Comment Spec In Lab Mellisa E De Witt REGIONAL ECONOMIST CHEMISTRY ORDERABL ES Performing Organization Address [facility] Co de Phone Number [facility] [place] [address] * (ABNORMAL) Iron and TIBC (02/03/2023 2:14 PM EST) Iron 36 30 - 150 mcg/dL [facility] TIBC 232(L) 250 - 450 mcg/dL [facility] Iron Saturation 16(L) 20 - 50 % [facility] Blood 02/03/2023 2:14 PM EST 02/03/2023 2:29 PM EST Narrative Resulting Agency Comment Spec In Lab Mellisa E De Witt REGIONAL ECONOMIST CHEMISTRY ORDERABL ES Performing Organization Address [facility] Co de Phone Number [facility] [place] [address] * (ABNORMAL) Hemogram (02/03/2023 2:14 PM EST) White Blood Cell 9.8(H) 4.0 - 9.5 x10(3)/mc L [facility] Red Blood Cell 4.14 4.00 - 5.21 x10(6)/mc L [facility] Hemoglobin 12.6 11.7 - 15.5 g/dL [facility] Hematocrit 38.1 35.7 - 45.8 % [facility] Mean Cell Volume 92.0 82.6 - 94.4 fL [facility] Mean Cell Hemoglobin 30.4 27.1 - 32.0 pg [facility] Mean Cell Hemoglobin Concentration 33.1 31.7 - 35.0 g/dL [facility] Platelet 275 145 - 357 x10(3)/mc L [facility] RDW Standard Deviation 50.6(H) 37.0 - 46.0 fL [facility] RDW coefficient of variation 14.8(H) 11.5 - 14.1 % [facility] Mean Platelet Volume 10.1 7.6 - 12.9 fL [facility] NRBC% auto 0.0 % [facility] NRBC Absolute 0.000 0.000 - 0.000 x10(3)/mc L [facility] Blood 02/03/2023 2:14 PM EST 02/03/2023 2:29 PM EST Narrative Resulting Agency Comment Spec In Lab Mellisa E De Witt REGIONAL ECONOMIST HEMATOLOGY ORDERAB LES Performing Organization Address [facility] Co de Phone Number [facility] [place] [address] * Folate, serum (02/03/2023 2:14 PM EST) [facility] Folate >20.0 4.8 - 24.2 ng/mL [facility] Blood 02/03/2023 2:14 PM EST 02/03/2023 2:29 PM EST Narrative Resulting Agency Comment Spec In Lab Mellisa E Kashif [facility] CHEMISTRY ORDERABL ES Performing Organization Address [facility] Number [facility] [place] [address] * Ferritin (02/03/2023 2:14 PM EST) [facility] Ferritin 197 30 - 400 ng/mL [facility] Comment: Pediatric reference ranges not verified at [facility], interpret with caution. Reference ranges for females greater than 50 years of age approach values for men, i.e., 30-400 ng/mL. Blood 02/03/2023 2:14 PM EST 02/03/2023 2:29 PM EST Narrative Resulting Agency Comment Spec In Lab Mellisa E De Witt [facility] ECONOMIST CHEMISTRY ORDERABL ES Performing Organization Address [facility] Phone Number [facility] [place] [address] * (ABNORMAL) Comprehensive metabolic panel (non-fasting) (02/03/2023 2:14 PM EST) [facility] Glucose 85 65 - 199 mg/dL [facility] Comment:Diabetes: >=200 mg/d L plus symptoms Blood Urea Nitrogen 25(H) 8 - 18 mg/dL [facility] Creatinine 0.84 0.70 - 1.20 mg/dL [facility] Sodium 136 135 - 145 mmol/L [facility] Potassium 5.0 3.5 - 5.0 mmol/L [facility] Comment: Please note: ??Patients with WBC >100,000 may have falsely elevated Potassium levels. ??For accurate Potassium quantification in these patients send serum separator tube (gold top) for subsequent determinations. ??Contact the Clinical Chemistry Laboratory if there are any questions. Chloride 101 98 - 107 mmol/L [facility] Carbon Dioxide 25 22 - 31 mmol/L [facility] Anion Gap 10 5 - 15 mmol/L [facility] Calcium 9.6 8.5 - 10.5 mg/dL [facility] Protein, Total 7.3 6.1 - 8.0 g/dL [facility] Albumin 4.1 3.2 - 5.2 g/dL [facility] Aspartate Aminotransferase 14 0 - 30 unit/L [facility] Alanine Aminotransferase 11 0 - 30 unit/L [facility] Alkaline Phosphatase 55 35 - 105 unit/L [facility] Bilirubin, Total <0.2(L) 0.2 - 1.3 mg/dL [facility] Est Glomerular Filtration Rate 80 >=60 mL/min/1. 73 m?? 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
--- OUTSIDE RECORDS SUMMARY | 2024-03-20 11:52 | XMS_ITS | Encounter Summary ---
[place] [address] Care Team Providers Care Tailercpa Name Role Phone Susan Jimenez APRN Primary Care Provider [phone]- [phone] Encounter Details Date Type Department Care Team (Late st Contact Info) Description 10/25/2022 Telephone [place] [id number] Rhiannon Bailey, RN Social History Tobacco Use Types Packs/Day Years Used Date Smoking Tobacco: Former Smokeless Tobacco: Never Comments:quit 1990 Alcohol Use Standard Drinks/Week Comments Yes 0 (1 standard drink = 0.6 oz pur e alcohol) <1 per day [facility] Inpatient Questions Answer Date Recorded Does [...] encounter Miscellaneous Notes * Telephone Encounter - Rhiannon Bailey RN - 11/05/2022 9:38 AM EDT Called pt. According to Dr. Khalil, it is ok to stop your metformin. * Telephone Encounter - Rhiannon Bailey RN - 10/25/2022 3:26 PM EDT Pt had bariatric surgery on 10/08 and says that she is feeling good. Bariatric surgeon give her a one time long acting Metformin dose after surgery but she doesn't know if she should continue with it or not. Surgeon said to reach out to Dr. Khalil. I let pt know that I would talk to her and get back to her. * Telephone Encounter - Rhiannon Bailey RN - 10/25/2022 3:15 PM EDT Called pt. And left message letting her know that her message cut out and I was unsure why she was calling. Please return call so I can address her concerns. * Telephone Encounter - Rhiannon Bailey RN - 10/25/2022 3:13 PM EDT Pt called and message cut out. Unaware of their needs. documented in this encounter Plan of Treatment Upcoming Encounters Date Type Department Care Team (Late st Contact Info) Description 04/13/2024 3:20 PM EST Office Visit Dermatology at [facility] [address] [place] [address] Felicitas Llanes MD [facility] [address] [place] [address] 04/26/2024 4:00 PM EST Office Visit [place] [address] Denia Xiao APRN [facility] [place] [address] documented as of this encounter Goals Goal Patient Goal Type Associated Problems Recent Progress Patient-Stated? Author movement Exercise No Arsh So Note: Try cardio chair exercises. Health Admissions Supervisor will send links to videos. Self [...] the pause (STOP, and urge surfing. Health Admissions Supervisor will mail hand-outs. documented as of this encounter Visit Diagnoses Not on filedocumented in this encounter Care Teams Tailercpa Relationship Specialty Start Date End Date Barbara, Susan Mobley APRN PCP - General Internal Medicine 10/03/22 09/14/23 documented as of this encounter
--- OUTSIDE RECORDS SUMMARY | 2024-03-20 11:52 | XMS_ITS | Encounter Summary ---
Author Organization [facility] [place] [address] Care Team Providers Care Auto Slip Cover Installer Name Role Phone Susan Jimenez APRN Primary Care Provider [phone]- [phone] Encounter Details Date Type Department Care Team (Late st Contact Info) Description 10/10/2022 Telephone [place] [address] Nicolás Jones MD [facility] [place] [address] Social History Tobacco Use Types Packs/Day Years Used Date Smoking Tobacco: Former Smokeless Tobacco: Never Comments:quit 1990 Alcohol Use Standard Drinks/Week Comments Yes 0 (1 standard drink = 0.6 oz pur e alcohol) <1 per day [facility] Inpatient Questions Answer Date Recorded [...] encounter Miscellaneous Notes * Telephone Encounter - Nicolás Jones MD - 10/10/2022 7:40 PM EDT I returned the patient's call at 7:40 PM. Liss Mosley is a 57 y.o. female who is s/p Laparoscopic gastrectomy with Dr. Borrero. They are calling in regards to blood pressure medication. She was advised on discharge to hold off from taking current blood pressure medication. She records her BP regularly. This evening, she recorded her BP at 220/90 and 224/86. After continual checks it remained inside those values. I advised her to restart her lisinopril and to contact her PCP in the AM to have a close follow up and adjustments of BP medications as necessary. In addition, I also advised her that if the blood pressure continues after the time the medication should take affect or she starts experiencing symptoms, she should consider heading to local ED. Liss Mosley agrees with this plan. This note will be routed to the provider mentioned above. Nicolás Jones MD documented in this encounter Plan of Treatment Upcoming Encounters Date Type Department Care Team (Late st Contact Info) Description 04/13/2024 3:20 PM EST Office Visit Dermatology at [address] [phone] Felicitas Llanes MD [facility] DR MODESTA [place] [address] 04/26/2024 4:00 PM EST Office Visit [place] [address] Denia Xiao APRN [facility] [place] [address] documented as of this encounter Goals Goal Patient Goal Type Associated Problems Recent Progress Patient-Stated? Author movement Exercise No Robbin-Arsh Bess Note: Try cardio chair exercises. Health Plastics Factory Worker will send links to videos. Self monitoring [...] the pause (STOP, and urge surfing. Health Plastics Factory Worker will mail hand-outs. documented as of this encounter Visit Diagnoses Not on filedocumented in this encounter Care Teams Auto Slip Cover Installer Relationship Specialty Start Date End Date Barbara, Susan Mobley APRN PCP - General Internal Medicine 10/03/22 09/14/23 documented as of this encounter
--- OUTSIDE RECORDS SUMMARY | 2024-03-20 11:52 | XMS_ITS | Encounter Summary ---
Author Organization [facility] [place] [address] Care Team Providers Care Replenishment Associate Name Role Phone Susan Jimenez APRN Primary Care Provider [phone] Reason for Visit * Auth/Cert (Routine) Specialty Diagnoses / Procedures Referred By Yury t Referred To Contact Diagnoses Obesity Obesity Procedures PRO LAPAROSCOPY, SURG/GASTRIC RESTRICTIVE PROC, LONGITUDINAL GASTRECTOMY PRO UPPER GI ENDOSCOPY, DIAGNOSTIC @LAPAROSCOPY, SURG/GASTRIC RESTRICTIVE PROC, LONGITUDINAL GASTRECTOMY (WRVU 20.38) EGD, UPPER GI ENDOSCOPY (WRVU 2.09) Annabella Borrero MD [facility] [place] [address] [facility] Referral ID Status Reason Start Date Expiration Date Visits Re quested Visits Authorized [id number] 1 1 Encounter Details Date Type Department Care Team (Latest Contact Info) Description 10/08/2022 12:26 PM EDT - 10/09/2022 1:49 PM EDT Hospital [place] [address] Annabella Borrero MD [facility] [place] [address] Discharge Disposition: Home Social History Tobacco Use [...] Sign Reading Time Taken Comments Blood Pressure 138/67 10/09/2022 11:00 AM EDT Pulse 62 10/08/2022 6:45 PM EDT Temperature 36.6 ??C (97.9 ??F) 10/09/2022 3:17 AM ED T Respiratory Rate 20 10/09/2022 12:0 0 PM EDT Oxygen Saturation 97% 10/09/2022 11: 00 AM EDT Inhaled Oxygen Concentration - - Weight 119.5 kg (263 lb 6.4 oz) 10/08/2022 1:13 PM EDT Height 165.1 cm (5' 5) 10/08/2022 1:13 PM EDT Body Mass Index 43.83 10/08/2022 1:13 PM EDT documented in this encounter Discharge Summaries * Annabella Borrero MD - 10/09/2022 12:43 PM EDT Images from the original note were not included. Minimally Invasive Surgery- Discharge Summary Patient Name: Lsis Mosley Patient Age: 57 y.o. Birthdate: 1965 Admit date: 10/08/2022 Discharge date and time: 10/09/2022 Attending Physician: Jyoti att. providers found Primary Diagnosis: Gastric bypass status for obesity Secondary Diagnosis: Active Hospital Problems Diagnosis Gastric bypass status for obesity Insulin resistance Resolved Hospital Problems No resolved problems to display. 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 Essential hypertension Excessive consumption of ethanol Gastritis H/O cardiac murmur Headache Other general symptoms and signs Perimenopause Rosacea Skin rash Class 3 severe obesity with body mass index (BMI) of 45.0 to 49.9 in adult Ning's disease TESSA (obstructive sleep apnea) OA (osteoarthritis) Primary osteoarthritis of both knees Depression Right knee pain Hypothyroidism Fracture of pelvis Operations/Major Procedures: Operations: 10/08/2022 Surgeon(s) and Role: * Annabella Borrero MD - Primary * Mirna Holt MD - Resident - Assisting: Procedure(s): @LAPAROSCOPY, SURG/GASTRIC RESTRICTIVE PROC, LONGITUDINAL GASTRECTOMY (WRVU 20.38) EGD, UPPER GI ENDOSCOPY (WRVU 2.09) Hospital Course: Liss Mosley is a 57 y.o. female with history of obesity, HTN, TESSA, arthritis who was taken to the OR for the procedure listed above. This was performed 10/08/2022 without incident. Postoperatively she was admitted to the hospital in stable condition. Overall her postoperative course was uncom plicated. Ultimately, she made a satisfactory recovery and by the date of discharge she had stable nutrient intake on a stage II bariatric diet, was performing essential ADLs, and her pain was well controlled. At this point we felt she was appropriate for discharge, all final arrangements were made, and she was released from the hospital. Pending Lab Data at Discharge: None Condition at Discharge: Stable Important Studies and Lab Data: Labs: No results found for this or any previous visit (from the past 24 hour(s)). Studies: none Exam: Temp: -- Heart Rate: -- Resp: -- BP: -- SpO2: -- Heart Rate from SpO2: -- No intake/output data recorded. No intake/output data recorded. Gen: resting comfortably, no distress, alert and oriented x3 Pulm: non-labored breathing Card: normal rate/rhythm Abd: soft, non-tender, non-distended Wound: incision clean, dry, intact, no purulent drainage Ext: no edema Discharge to: Home Discharge Conditions/Prognosis: Stable Discharge Medications: Your Medications New Medications Dose Details acetaminophen 325 mg tablet Commonly known as: Tylenol Take 2 tablets by mouth every 6 hours as needed for Pain. 650 mg Refills: 0 docusate sodium 100 mg capsule Commonly known as: Colace Take 1 capsule by mouth 2 times daily as needed for Constipation. 100 mg Refills: 0 enoxaparin 40 mg/0.4 mL Syringe Commonly known as: Lovenox Inject 0.4 mLs subcutaneously 2 times daily for 10 days. 40 mg Quantity: 8 mL Refills: [address] capsule Commonly known as: PriLOSEC Take 1 capsule by mouth daily for 90 days. 40 mg Quantity: 90 capsule Refills: 0 ondansetron ODT 4 mg disintegrating tablet Commonly known as: Zofran-ODT Take 1 tablet by mouth every 8 hours as needed for Nausea. 4 mg Quantity: 20 tablet Refills: 0 oxyCODONE 5 mg/5 mL Solution Commonly known as: Roxicodone Take 5 mLs by mouth every 6 hours as needed for Pain. 5 mg Quantity: 60 mL Refills: 0 polyethylene glycoL 17 gram/dose Powder Commonly known as: Miralax Take 17 g by mouth daily. 17 g Refills: 0 ursodioL 250 mg tablet Commonly known as: Ariana 250 Take 1 tablet by mouth 2 times daily for 180 days. Start taking on: October 22, 2022 250 mg Quantity: 180 tablet Refills: 1 Continued medications with new dosing Dose Details * metFORMIN XR 500 mg ER 24 hr tablet Commonly known as: Glucophage XR Take 4 tablets by mouth daily. 4 po qdinner What changed: Another medication with the same name was added. Make sure you understand how and when to take each. 2,000 mg Quantity: 360 tablet Refills: 1 * metFORMIN 1,000 mg tablet Commonly known as: Glucophage Take 1 tablet by mouth 2 times daily (with meals) for 14 days. Ok to cut tablets in half. What changed: You were already taking a medication with the same name, and this prescription was added. Make sure you understand how and when to take each. 1,000 mg Quantity: 28 tablet Refills: 0 * This list has 2 medication(s) that are the same as other medications prescribed for you. Read thedirections carefully, and ask your doctor or other care provider to review them with you. Continued medications, unchanged Dose Details Biotin 1 mg tablet Take by mouth. Refills: 0 Echinacea 125 mg Tablet echinacea Generic drug: Echinacea Purpurea Extract Refills: 0 Ginkgo Biloba 40 mg Tablet Take by mouth 2 times daily. Refills: 0 lactobacillus rhamnosus (GG) 10 billion [...] by mouth nightly. 10 mg Refills: 0 [place]-3 Fatty Acids 100 mg Tablet, Chewable Daily Refills: 0 sertraline 50 mg tablet Commonly known as: Zoloft Take 50 mg by mouth daily. 50 mg Refills: 0 sulfacetamide 10 % Suspension Commonly known as: Klaron Apply topically to face 1-2 times daily for rosacea Quantity: 118 mL Refills: 3 Updated Allergies/ADRs: Allergies Allergen Reactions Adhesive Tape CIS - Localized Reaction Citalopram Other (See Comments) Other reaction(s): FATIGUE Ketorolac Other (See Comments) Mold Rash Adhesive Rash Other reaction(s): SKIN RASH PCP: Susan Jimenez APRN Scheduled Appointments: Future Appointments Date Time Provider Department [place] 10/25/2022 10:00 AM Mellisa Rowland APRN [facility] 02/03/2023 10:00 AM Mellisa Rowland APRN [facility] Outpatient Services/Studies: No discharge procedures on file. Instructions Given to Patient at Discharge:. An After Visit Summary was printed and given to the patient. 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 You may resume your normal home dose of Metformin XR the day after you finish the new prescription for immediate release Metformin. Ok to cut in half for 2 weeks: sertraline (Zoloft) Stop taking: lisinopril (Zestril) - please see below for further information about blood pressure management. PATIENTS WITH HIGH BLOOD PRESSURE: Stop taking lisinopril (Zestril) after surgery. Monitor your blood pressure regularly, at the same time every day. Keep a log to bring to your PCP appointments. If your systolic (top number) blood pressure is consistently higher than 140, call your PCP for guidance on restarting your blood pressure medication. If you feel dizzy and have been drinking 48-64 ounces of fluid, check your blood pressure. If your blood pressure is low, call your primary care provider. MEDICATIONS: For 2 WEEKS: LARGE pills (bigger than the size of a Skittle or M&M) must be crushed. Large capsules must be opened and put in applesauce or pudding. Please use the size template below to measure your pills. Pills that are the same size or smaller than the template below do not need to be crushed/opened Not all medications can be crushed. Check with your pharmacist if unsure. HOLD bariatric vitamins for 2 weeks after surgery (unless you have one that is chewable or liquid). Size Template: BARIATRIC SUPPORT TEAM CONTACT NUMBERS (Mon-Fri 8am - 5pm): General Surgery and Bariatric Surgery [phone] Bariatric Surgeons: Adair Carcamo Trus [phone] Electric Scoop Operator: [phone] Dietitians: [phone] Outside of regular business hours, including weekends and holidays: Ask for General Surgery resident product management consultant [phone] Please note, this call will be answered by a resident, and they may not be able to return your call for several hours FOR EMERGENCIES: CALL 911 (trouble breathing, chest pain, rapid heart rate >120 beats per minuteor severe abdominal pain) CALL THE BARIATRIC TEAM FOR ANY OF THE FOLLOWING: Signs and symptoms of infection such as: Redness or swelling or new significant drainage from wounds Drainage or bleeding from wounds Fever over 101 degrees Fahrenheit, or shaking chills Persistent diarrhea or vomiting or inability to keep down food or fluids in a 24 hour period Signs / symptoms of a blood clot: leg swelling, redness, pain, shortness of breath Problems with urination or constipation, worsening abdominal pain not controlled with pain medication Any concerns you may have after your surgery Follow up Information: You have a surgical follow up appointment with The Bariatric Surgery Team in 3 weeks at the [facility] (Activities Aide [address]L, [facility]). Future Appointments Date Time Provider Department Center 10/25/2022 10:00 AM Mellisa Rowland APRN [facility] 02/03/2023 10:00 AM Mellisa Rowland APRN [facility] You have steri-strips over your incisions. You may shower 48 hours after surgery. Leave the steri-strips (little pieces of skin tape) across the incision and allow them to peel off on their own. If they are still there in 10 days, you may remove them. When you shower, let soap and water run over incisions without scrubbing. Pat dry gently. Some bruising around your incisions is normal. Using ice packs will help minimize this swelling. No swimming or soaking in water (ie. hot tubs or baths) for two weeks. Your stitches will dissolve and do not need to be removed. ACTIVITY, LIFTING AND DRIVING: For laparoscopic surgery, there are no lifting restrictions. Lift when you feel comfortable to do so. Do not drive if you are taking narcotic pain medication. When you are no longer taking narcotic pain medication and when it no longer causes pain to get in and out of the vehicle, you may drive when comfortable. DIET: Follow Stage II diet for two weeks. Keep a log of your intake, both for reminders to drink/eat, and to ask questions at your follow up. Daily goals are: 48-64 ounces of fluids and 60 grams of protein. CONSTIPATION: Your goal is at least 1 BM per day. Be sure you are meeting your fluid goals and moving/walking. Take 1 capful of Miralax daily (preferably at night) You can increase the dose as needed every 2-3 days (by adding on 1 capful either morning or night) without safety concerns, noting that individual tolerance becomes limited by loose stools and bloating with doses higher than 2 capfuls twice daily. Please call or send a Wish Days message if you do not have a BM after 3 days. On days with loose stools, we recommend reducing Miralax to 1/2 capful daily, but continue to take Miralax every day. If you continue to be constipated after taking Miralax for 1-2 days after surgery, you may add in the following over the counter medication: Take one 100 mg capsule of Colace every day, up to twice daily. BLOOD CLOT PREVENTION: You DO meet scoring criteria and will be discharged on enoxaparin injections twice daily for 10 days after you go home to prevent blood clots. Be active, walk at least 4 times a day and do blood clotprevention exercises in your handbook on page 82. IF YOU ARE TREATED FOR OBSTRUCTIVE SLEEP APNEA: IMPORTANT - you MUST use your CPAP/ BIPAP after surgery while sleeping at night and also when napping during the day because some medications you may have been prescribed at discharge can decrease your breathing. Follow up with the Sleep Center if pressure seems to be too high. ULCER PREVENTION: IMPORTANT - starting the day after discharge, you must take acid suppressing medication for 3 MONTHS after surgery. This is taken to prevent ulcers at your surgical sites internally, even if you do not have heartburn. You will start taking Omeprazole 40 mg daily. Omeprazole capsules contain enteric-coated, delayed-release granules. It is ok to swallow this capsule, but if you choose, you can OPEN the capsules, sprinkle the enteric-coated granules on applesauce or yogurt. Alternatively, you may take the granules with apple juice, or swallow them quickly withwater. Follow any of these methods with additional water to ensure that you have swallowed the granu les completely. If your insurer does not cover omeprazole, or similar medications such as pantoprazole, you must purchase these medications over the counter. You will continue this after the initial 3 month course if you have heartburn or reflux GALLSTONE PREVENTION: If you have your gallbladder after Bariatric Surgery - you must take start taking Ursodiol (Actigall) 250 mg twice a day to prevent gallstones. You may START this medication 2 weeks after surgery fora duration of 6 months. After that, you may stop this medication unless otherwise directed. If you find that this medication costs too much, and/or your insurance will not pay for it, you maybe eligible for assistance to pay for this with [employer]. Go to www.Known and put in the prescription and the pharmacy you would like to pick it up from, and you may be able to get the medication at a significantly reduced buchanan. PATIENTS WHO TAKE DIURETICS (WATER PILLS): Check with your surgical team prior to discharge for instructions. In general, this medication is stopped after surgery, as you are at risk for dehydration after Bariatric Surgery. Monitor yourself for any swelling of legs or gain of water weight after medication is stopped. Call your primary care doctor if you notice this. PATIENTS ON ANTI-DEPRESSANT OR MENTAL HEALTH MEDICATIONS: Do not stop or decrease your medications unless advised. Ongoing counseling is encouraged. PAIN MEDICATION: Your pain should lessen with each day out from surgery. Over the next couple of days you should be requiring less narcotic medication to control your pain, and eventually you will not need any at all. Take the medication exactly as it is prescribed and make sure to read all instructions that come with the medication. Take only as needed. You may adjunct your pain control using scheduled Tylenol (acetaminophen), use as directed. Do NOT use NSAIDS (ibuprofen, Motrin, Aleve, aspirin, naproxen, etc.) to adjunct your pain control. Opioids can slow reaction time, cause drowsiness or cloud judgement. You MUST NOT DRIVE while taking narcotic pain medication. Taking more than the prescribed amount of narcotic or combining with alcohol or drugs can cause youto stop breathing, leading to coma, brain damage or . Using this drug may cause addiction. While addiction is more common in people with a personal or family history of addiction, it can occur in anyone. Opioids are at risk of being diverted by anyone with access to your home. Opioids should be stored in a safe and secure place, such as a locked cabinet or safe. Unused opioids should be disposed of appropriately. They may be returned to a take-back location, or mixed with a small amount of water and poured over an undesirable waste such as used coffee grounds or cat litter. Opioid pain medications can cause significant constipation. You should use a stool softener such asMiralax to address this. OTHER MEANS FOR PAIN RELIEF: Learn deep breathing exercises or meditation to help you relax Reduce stress Your body produces natural endorphins from exercise which can help reduce pain. Even walking is considered exercise. Talk with your provider/surgical team about what exercises are appropriate for youto perform. You may use a heating pad or apply ice to the painful area unless specifically discouraged by the surgical team. Find ways to distract yourself from the pain. MEDICATIONS TO AVOID FOR TWO MONTHS AFTER SURGERY: Discontinue anti-inflammatory non-steroidal medications, such as Advil, Aleve, ibuprofen, naproxen,etc. Refer to Medications that may increase the risk of bleeding in your handbook. If you do take aspirin for your heart or to prevent strokes, continue as prescribed. WOMEN OF CHILDBEARING AGE: Fertility may increase with weight loss. Avoid for 18-24 months after bariatric surgery. Condoms alone are not acceptable as a form of control. Do not take control pills for the first month after surgery. MANAGEMENT OF DIABETES MELLITUS AFTER BARIATRIC SURGERY: IMPORTANT to check blood sugars four times a day, fasting blood sugars, 2 hours after meals and as needed when feeling unwell. If the Diabetes Team saw you during your hospital stay, they have listed specific recommendations elsewhere in your discharge paperwork. Please refer to their specific diabetes care recommendations. Patients on oral diabetic medication: If blood sugar is over 200 on more than 3 checks, call your primary care physician or diabetic specialist for recommendations. For patients on insulin and oral diabetic medications: If blood sugar is over 200 on 3 checks, call your primary care doctor or diabetic specialist for recommendations. Follow up with primary care provider or branch service specialist in 1-2 weeks in order to adjust your changing diabetes treatment requirements. VITAMIN AND MINERAL SUPPLEMENTATION: START at 2 weeks post surgery Vitamin B12 500 mcg pill daily Complete multivitamin w/ minerals One pill twice daily. If a bariatric specific multivitamin, follow the package directions Calcium Calcium citrate 600 mg with vitamin D 400 units twice a day between meals. Iron with vitamin C Take iron as instructed per Handbook - (only if you have anemia, iron deficiency or regular menses) FOLLOW-UP CARE: It is IMPORTANT to see your Primary Care Physician or PCP within 10-14 days after surgery for woundcheck and vital signs check, and to discuss specific medical management as referenced above. You should follow up with your surgeon and dietitian at 3-4 weeks after surgery. You will follow up with the dietitian and Bariatric nurse practitioner at 4, 12, 18, and 24 months,then yearly for life. General Instructions None Annabella Borrero MD Minimally Invasive and Bariatric Surgery Fellow, PGY-6 10/14/22 4:38 PM MISpager [phone] documented in this encounter Discharge Instructions * Patient Instructions* Gem Wright MD - 10/09/2022 7:33 AM EDT Images from the original note were not included. 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 You may resume your normal home dose of Metformin XR the day after you finish the new prescription for immediate release Metformin. Ok to cut in half for 2 weeks: sertraline (Zoloft) Stop taking: lisinopril (Zestril) - please see below for further information about blood pressure management. PATIENTS WITH HIGH BLOOD PRESSURE: Stop taking lisinopril (Zestril) after surgery. Monitor your blood pressure regularly, at the same time every day. Keep a log to bring to your PCP appointments. If your systolic (top number) blood pressure is consistently higher than 140, call your PCP for guidance on restarting your blood pressure medication. If you feel dizzy and have been drinking 48-64 ounces of fluid, check your blood pressure. If your blood pressure is low, call your primary care provider. MEDICATIONS: For 2 WEEKS: LARGE pills (bigger than the size of a Skittle or M&M) must be crushed. Large capsules must be opened and put in applesauce or pudding. Please use the size template below to measure your pills. Pills that are the same size or smaller than the template below do not need to be crushed/opened Not all medications can be crushed. Check with your pharmacist if unsure. HOLD bariatric vitamins for 2 weeks after surgery (unless you have one that is chewable or liquid). Size Template: BARIATRIC SUPPORT TEAM CONTACT NUMBERS (Mon-Fri 8am - 5pm): General Surgery and Bariatric Surgery [phone] Bariatric Surgeons: Adair Carcamo, Marlen [phone] Electric Scoop Operator: [phone] Dietitians: [phone] Outside of regular business hours, including weekends and holidays: Ask for General Surgery resident product management consultant [phone] Please note, this call will be answered by a resident, and they may not be able to return your call for several hours FOR EMERGENCIES: CALL 911 (trouble breathing, chest pain, rapid heart rate >120 beats per minuteor severe abdominal pain) CALL THE BARIATRIC TEAM FOR ANY OF THE FOLLOWING: Signs and symptoms of infection such as: Redness or swelling or new significant drainage from wounds Drainage or bleeding from wounds Fever over 101 degrees Fahrenheit, or shaking chills Persistent diarrhea or vomiting or inability to keep down food or fluids in a 24 hour period Signs / symptoms of a blood clot: leg swelling, redness, pain, shortness of breath Problems with urination or constipation, worsening abdominal pain not controlled with pain medication Any concerns you may have after your surgery Follow up Information: You have a surgical follow up appointment with The Bariatric [facility] ([facility], [facility] Future Appointments Date Time Provider Department Center 10/25/2022 10:00 AM Mellisa Rowland APRN [facility] 02/03/2023 10:00 AM Mellisa Rowland APRN [facility] [place] [facility] You have steri-strips over your incisions. You may shower 48 hours after surgery. Leave the steri-strips (little pieces of skin tape) across the incision and allow them to peel off on their own. If they are still there in 10 days, you may remove them. When you shower, let soap and water run over incisions without scrubbing. Pat dry gently. Some bruising around your incisions is normal. Using ice packs will help minimize this swelling. No swimming or soaking in water (ie. hot tubs or baths) for two weeks. Your stitches will dissolve and do not need to be removed. ACTIVITY, LIFTING AND DRIVING: For laparoscopic surgery, there are no lifting restrictions. Lift when you feel comfortable to do so. Do not drive if you are taking narcotic pain medication. When you are no longer taking narcotic pain medication and when it no longer causes pain to get in and out of the vehicle, you may drive when comfortable. DIET: Follow Stage II diet for two weeks. Keep a log of your intake, both for reminders to drink/eat, and to ask questions at your follow up. Daily goals are: 48-64 ounces of fluids and 60 grams of protein. CONSTIPATION: Your goal is at least 1 BM per day. Be sure you are meeting your fluid goals and moving/walking. Take 1 capful of Miralax daily (preferably at night) You can increase the dose as needed every 2-3 days (by adding on 1 capful either morning or night) without safety concerns, noting that individual tolerance becomes limited by loose stools and bloating with doses higher than 2 capfuls twice daily. Please call or send a [facility] [employer] message if you do not have a BM after 3 days. On days with loose stools, we recommend reducing Miralax to 1/2 capful daily, but continue to take Miralax every day. If you continue to be constipated after taking Miralax for 1-2 days after surgery, you may add in the following over the counter medication: Take one 100 mg capsule of Colace every day, up to twice daily. BLOOD CLOT PREVENTION: You DO meet scoring criteria and will be discharged on enoxaparin injections twice daily for 10 days after you go home to prevent blood clots. Be active, walk at least 4 times a day and do blood clotprevention exercises in your handbook on page 82. IF YOU ARE TREATED FOR OBSTRUCTIVE SLEEP APNEA: IMPORTANT - you MUST use your CPAP/ BIPAP after surgery while sleeping at night and also when napping during the day because some medications you may have been prescribed at discharge can decrease your breathing. Follow up with the [facility] if pressure seems to be too high. ULCER PREVENTION: IMPORTANT - starting the day after discharge, you must take acid suppressing medication for 3 MONTHS after surgery. This is taken to prevent ulcers at your surgical sites internally, even if you do not have heartburn. You will start taking Omeprazole 40 mg daily. Omeprazole capsules contain enteric-coated, delayed-release granules. It is ok to swallow this capsule, but if you choose, you can OPEN the capsules, sprinkle the enteric-coated granules on applesauce or yogurt. Alternatively, you may take the granules with apple juice, or swallow them quickly withwater. Follow any of these methods with additional water to ensure that you have swallowed the granu les completely. If your insurer does not cover omeprazole, or similar medications such as pantoprazole, you must purchase these medications over the counter. You will continue this after the initial 3 month course if you have heartburn or reflux GALLSTONE PREVENTION: If you have your gallbladder after Bariatric Surgery - you must take start taking Ursodiol (Actigall) 250 mg twice a day to prevent gallstones. You may START this medication 2 weeks after surgery fora duration of 6 months. After that, you may stop this medication unless otherwise directed. If you find that this medication costs too much, and/or your insurance will not pay for it, you maybe eligible for assistance to pay for this with [employer]. Go to www.Known and put in the prescription and the pharmacy you would like to pick it up from, and you may be able to get the medication at a significantly reduced buchanan. PATIENTS WHO TAKE DIURETICS (WATER PILLS): Check with your surgical team prior to discharge for instructions. In general, this medication is stopped after surgery, as you are at risk for dehydration after Bariatric Surgery. Monitor yourself for any swelling of legs or gain of water weight after medication is stopped. Call your primary care doctor if you notice this. PATIENTS ON ANTI-DEPRESSANT OR MENTAL HEALTH MEDICATIONS: Do not stop or decrease your medications unless advised. Ongoing counseling is encouraged. PAIN MEDICATION: Your pain should lessen with each day out from surgery. Over the next couple of days you should be requiring less narcotic medication to control your pain, and eventually you will not need any at all. Take the medication exactly as it is prescribed and make sure to read all instructions that come with the medication. Take only as needed. You may adjunct your pain control using scheduled Tylenol (acetaminophen), use as directed. Do NOT use NSAIDS (ibuprofen, Motrin, Aleve, aspirin, naproxen, etc.) to adjunct your pain control. Opioids can slow reaction time, cause drowsiness or cloud judgement. You MUST NOT DRIVE while taking narcotic pain medication. Taking more than the prescribed amount of narcotic or combining with alcohol or drugs can cause youto stop breathing, leading to coma, brain damage or . Using this drug may cause addiction. While addiction is more common in people with a personal or family history of addiction, it can occur in anyone. Opioids are at risk of being diverted by anyone with access to your home. Opioids should be stored in a safe and secure place, such as a locked cabinet or safe. Unused opioids should be disposed of appropriately. They may be returned to a take-back location, or mixed with a small amount of water and poured over an undesirable waste such as used coffee grounds or cat litter. Opioid pain medications can cause significant constipation. You should use a stool softener such asMiralax to address this. OTHER MEANS FOR PAIN RELIEF: Learn deep breathing exercises or meditation to help you relax Reduce stress Your body produces natural endorphins from exercise which can help reduce pain. Even walking is considered exercise. Talk with your provider/surgical team about what exercises are appropriate for youto perform. You may use a heating pad or apply ice to the painful area unless specifically discouraged by the surgical team. Find ways to distract yourself from the pain. MEDICATIONS TO AVOID FOR TWO MONTHS AFTER SURGERY: Discontinue anti-inflammatory non-steroidal medications, such as Advil, Aleve, ibuprofen, naproxen,etc. Refer to Medications that may increase the risk of bleeding in your handbook. If you do take aspirin for your heart or to prevent strokes, continue as prescribed. WOMEN OF CHILDBEARING AGE: Fertility may increase with weight loss. Avoid for 18-24 months after bariatric surgery. Condoms alone are not acceptable as a form of control. Do not take control pills for the first month after surgery. MANAGEMENT OF DIABETES MELLITUS AFTER BARIATRIC SURGERY: IMPORTANT to check blood sugars four times a day, fasting blood sugars, 2 hours after meals and as needed when feeling unwell. If the Diabetes Team saw you during your hospital stay, they have listed specific recommendations elsewhere in your discharge paperwork. Please refer to their specific diabetes care recommendations. Patients on oral diabetic medication: If blood sugar is over 200 on more than 3 checks, call your primary care physician or diabetic specialist for recommendations. For patients on insulin and oral diabetic medications: If blood sugar is over 200 on 3 checks, call your primary care doctor or diabetic specialist for recommendations. Follow up with primary care provider or branch service specialist in 1-2 weeks in order to adjust your changing diabetes treatment requirements. VITAMIN AND MINERAL SUPPLEMENTATION: START at 2 weeks post surgery Vitamin B12 500 mcg pill daily Complete multivitamin w/ minerals One pill twice daily. If a bariatric specific multivitamin, follow the package directions Calcium Calcium citrate 600 mg with vitamin D 400 units twice a day between meals. Iron with vitamin C Take iron as instructed per Handbook - (only if you have anemia, iron deficiency or regular menses) FOLLOW-UP CARE: It is IMPORTANT to see your Primary Care Physician or PCP within 10-14 days after surgery for woundcheck and vital signs check, and to discuss specific medical management as referenced above. You should follow up with your surgeon and dietitian at 3-4 weeks after surgery. You will follow up with the dietitian and Bariatric nurse practitioner at 4, 12, 18, and 24 months,then yearly for life. documented in this encounter Medications at Time of Discharge Medication Sig Dispensed Refills Start Date End Date acetaminophen (Tylenol) 325 mg tablet Take 2 [...] mouth daily. 11/04/2013 sulfacetamide (KLARON) 10 % SuspensionIndications :Rosacea Apply topically to face 1-2 times daily for rosacea 118 mL 3 06/12/2017 Echinacea 400 mg capsule Take by mouth. 01/23/2022 11/12/2023 metFORMIN XR (Glucophage XR) 500 mg ER 24 hr tablet daily. 06/12/2021 enoxaparin (Lovenox) 40 mg/0.4 mL Syringe Inject 0.4 mLs subcutaneously 2 times daily for 10 days. 8 mL 10/09/2022 10/19/2022 omeprazole (PriLOSEC) [address] capsule Take 1 capsule by mouth daily for 90 days. 90 capsule 10/09/2022 01/07/2023 metFORMIN (Glucophage) 1,000 mg tablet Take 1 tablet by mouth 2 times daily (with meals) for 14 days. Ok to cut tablets in half. 28 tablet 10/09/2022 10/23/2022 ondansetron ODT (Zofran-ODT) 4 mg disintegrating tablet Take 1 tablet by mouth every 8 hours as needed for Nausea. 20 tablet 10/09/2022 02/03/2023 polyethylene glycoL (Miralax) 17 gram/dose Powder Take 17 g by mouth daily. 10/09/2022 11/11/2023 oxyCODONE (Roxicodone) 5 mg/5 mL Solution Take 5 mLs by mouth every 6 hours as needed for Pain. 60 mL 10/09/2022 02/03/2023 docusate sodium (Colace) 100 mg capsule Take 1 capsule by mouth 2 times daily as needed for Constipation. 10/09/2022 11/11/2023 ursodioL (Ariana 250) 250 mg tablet Take 1 tablet by mouth 2 times daily for 180 days. 180 tablet 1 10/22/2022 02/10/2023 metFORMIN XR (Glucophage XR) 500 mg ER 24 hr tabletIndications:Cla ss 3 severe obesity with body mass index (BMI) of 45.0 to 49.9 in adult, unspecified obesity type, unspecified whether serious comorbidity present,Insulin resistance Take 4 tablets by mouth daily. 4 po qdinner 360 tablet 1 07/12/2022 11/11/2023 Ginkgo Biloba 40 mg Tablet Take by mouth 2 times daily. 11/11/2023 Echinacea Purpurea Extract (Echinacea) 125 mg Tablet echinacea 11/11/2023 [place]-3 Fatty Acids 100 mg Tablet, Chewable Daily 11/12/2018 11/11/2023 documented as of this encounter Progress Notes * Anita Wilson RN - 10/09/2022 12:39 PM EDT Break coverage. Labs sent. Plan to d/c home today. * Gem Wright MD - 10/09/2022 7:08 AM EDT Minimally Invasive Surgery Inpatient Progress Note ID: Liss Mosley is a 57 y.o. female with h/o class III obesity, TESSA with CPAP, OA, HTN, thyroid disease (Ning's thyroiditis), depression. Presented for bariatric surgery. Hospital Day: 1 Procedures: laparoscopic sleeve gastrectomy, now 1 Day Post-Op Subjective & 24hr events: Pain well controlled, some upper abdominal pressure One episode of nausea after drinking liquid acetaminophen. No nausea today Ambulating, voiding spontaneously Slept well, used CPAP overnight Vital signs stable Tolerating stage I clear diet No BM O: Last value Range last 24hrs Temperature Temp: 36.6 ??C (97.9 ??F) Temp: [35.7 ??C (96.3 ??F)-36.8 ??C (98.2 ??F)] Heart Rate Heart Rate: 62 Heart Rate: [60-74] Blood Pressure BP: 112/57 BP: (111-150)/(57-103) Respiratory Rate Resp: 18 Resp: [12-22] SpO2 SpO2: 95 % SpO2: [90 %-100 %] 10/08 0701 - 10/09 0700 In: 2433.3 [P.O.:200; I.V.:2233.3] Out: 1213 [Urine:1200] Intake and Output: I/O last 3 completed shifts: In: 2433.3 [P.O.:200; I.V.:2233.3] Out: 1213 [Urine:1200; Blood:13] No intake/output data recorded. Current Medications: Current Facility-Administered Medications Medication Dose Route Frequency Provider Last Rate Last Admin enoxaparin (Lovenox) (40 mg/0.4 mL) subcutaneous injection 40 mg 40 mg Subcutaneous 2 times per dayLetty Loving PA BUpivacaine (pf) (Marcaine) (2.5 mg/mL) 0.25% injection PRN Annabella Borrero MD 14 mg at levothyroxine (Synthroid) tablet 150 mcg 150 mcg Oral Daily Mirna Holt MD 150 mcg at 10/09/22599 sodium chloride 0.9 % (flush) (BD PosiFlush Normal Saline 0.9) flush 5 mL 5 mL Intravenous BID Mirna Holt MD 5 mL at 10/08/222007 sodium chloride 0.9 % (flush) (BD PosiFlush Normal Saline 0.9) flush 5-20 mL 5- 20 mL Intravenous Q1Min PRN Mirna Holt MD lidocaine (Xylocaine) 1% (10 mg/mL) injection 3 mg 0.3 mL Subcutaneous Once PRN Mirna Holt MD lactated ringers infusion 1,000 mL Intravenous Continuous Mirna Holt MD 125 mL/hr at 10/09/22 0533 1,000 mL at 10/09/22532 pantoprazole (Protonix) injection 40 mg 40 mg Intravenous Daily Mirna Holt MD 40 mg at 10/08/222007 ondansetron (pf) (Zofran) (2 mg/mL) injection 4 mg 4 mg Intravenous Q8H [facility] Mirna Holt MD 4 mg at 10/09/22 06 prochlorperazine (Compazine) (5 mg/mL) injection 10 mg 10 mg Intravenous Q6H PRN Mirna Holt MD 10 mg at 10/09/22 0012 oxyCODONE (Roxicodone) (1 mg/mL) oral liquid 5 mg 5 mg Oral Q6H PRN Mirna Holt MD acetaminophen (Tylenol) (32.02 mg/mL) oral liquid 650 mg 650 mg Oral Q6H [facility] Mirna Holt MD 650 mg at 10/09/22 0600 Physical Exam: General: awake, alert, no acute distress HEENT: atraumatic, normocephalic, anicteric sclera CVS: RRR Pulm: unlabored breathing on RA Abd: mildly distension, appropriately tender. Incisions intact, dressed with steri-strips, minimal serosanguinous saturation : No quigley Skin: warm, dry Ext: warm, well perfused, no jaundice, no cyanosis, No edema Neuro: CN 2-12 grossly intact, nonfocal, moving all four extremities spontaneously Recent Labs 10/09/22 0315 WBC 7.0 HGB 11.7 HCT 36.4 PLATELET 211 Recent Labs 10/09/22 0315 NA 134* K 4.7 CL 103 CO2 21* BUN 22* CREATININE 0.74 GLUCOSE 124 CALCIUM 8.7 MAGNESIUM 0.88 PHOS 4.6* New Imaging: No results found. Assessment: Liss Mosley is a 57 y.o. female with h/o class III obesity, TESSA with CPAP, OA, HTN, thyroid disease (Ning's thyroiditis), depression. who is now 1 Day Post-Op s/p laparoscopic sleeve gastrectomy. Doing well post- operatively. Pain well managed, no nausea today. Tolerated stage I clear diet without concern, good urine output and ambulation. Advance to stage II diet. If drinking enough and continued nausea/pain control, DC home later today. Will go home on Lovenox. Plan: Neuro/Pain: pain control with scheduled Tylenol, BID celecoxib (d/c if patient is too drowsy on medication). Switch from liquid Tylenol to tablet. PRN Roxicodone available. Home med sertraline CV: HDS, will continue to monitor Pulm: incentive spirometer, OOB as tolerated. Continue CPAP FEN/GI: advance to gastric bypass stage II diet. LR @ 75 mL/hr, scheduled Zofran, PRN Compazine Renal/: monitor I/Os, urine output adequate. Wound/ID: routine wound care Heme: No concerns Endocrine: home levothyroxine Prophylaxis: SCDs, Lovenox injections, PPI Dispo: If drinking enough and nausea/pain controlled, DC home today. Signed: Caitlin Wing MS-3 7:09 AM 10/09/22 [facility] service pager: [phone] Patient seen and discussed with Caitlin Wing. Agree with above. Gem Wright MD Minimally Invasive and Bariatric Surgery Fellow, PGY-6 10/09/22 3:40 PM MISpager [phone] * Nilson Shankar MD - 10/08/2022 8:34 PM EDT Surgery Post Op Check Operation/Procedure: 10/08/2022 Surgeon(s) and Role: * Annabella Borrero MD - Primary * Mirna Holt MD - Resident - Assisting: Procedure(s): @LAPAROSCOPY, SURG/GASTRIC RESTRICTIVE PROC, LONGITUDINAL GASTRECTOMY (WRVU 20.38) EGD, UPPER GI ENDOSCOPY (WRVU 2.09) Findings: Sleeve gastrectomy created over a 36fr bougie Liss Mosley is a 57 y.o. female status post sleeve gastrectomy. Subjective/Events: Patient endorses some nausea early in her post-op course, now resolved. Denies vomiting, chest pain, shortness of breath, numbness/weakness. Pain adequately controlled. Offers no complaints. Objective: Temp: [35.7 ??C (96.3 ??F)-36.7 ??C (98.1 ??F)] Heart Rate: [60-74] Resp: [12-20] BP: (111-150)/(65-103) SpO2: [90 %-100 %] Heart Rate from SpO2: [61 bpm-76 bpm] O2 Device: None (Room air) No intake/output data recorded. Physical Exam GEN: resting comfortably in bed, pleasant, conversant, NAD HEENT: normocephalic, atraumatic CHEST: comfortable work of breathing CV: regular rate, well perfused ABD: soft, Appropriately tender, nondistended. Incisions with steri-strips in place, with scant serosanguinous saturation. EXTR: moving all extremities spontaneously, No edema NEURO: awake and alert, grossly intact, nonfocal, follows commands Assessment and Plan: Liss Mosley is a 57 y.o. female status post sleeve gastrectomy currently in stable condition and recovering well - Patient is doing well postoperatively - Hemodynamically stable - Pain adequately controlled - Diet: Gastric Bypass diet Stage I-Clear Nilson A Habbal, MD 10/08/2022 Minimally Invasive Surgery, Team Pager [phone] * Chey Ohara RN - 10/08/2022 6:54 PM EDT 1845: RN break relief. Pt resting comfortably. VSS. IV removed inadvertently during turning. Vascular access paged for access. * Yolanda Jimenez RN - 10/08/2022 5:30 PM EDT 1720: Patient arrived to PA21/PA21-A from OR. Vital signs stable. Alarms audible and set appropriately. Report received from surgical service and anesthesia. Laparoscopic abdominal sites clean, dry, intact. Patient in no apparent distress. 1930: Patient resting in bed. Appears comfortable. Converses appropriately. States pain is tolerable and denies nausea. Tolerating ice chips and sips of water. Patient's family at the bedside to visit. Report given to [place]ONG [place]. Plan for patient to remain in PACU overnight as a boarder. documented in this encounter H&P Notes * Annabella Borrero MD - 10/08/2022 2:19 PM EDT [facility] General Surgery History and Physical History of Present Illness: Liss Mosley is a 57 y.o. female with obesity who presents today for surgery. she denies anyrecent changes to her health or medications since she was seen in clinic. Past Medical History: Patient Active Problem List Diagnosis Code Ning's [...] knees M17.0 Rosacea L71.9 Skin rash R21 Past Surgical History: Past Surgical History: Procedure Laterality Date SECTION 1988 Medications: No current facility-administered medications on file prior to encounter. Current Outpatient Medications on File Prior to Encounter Medication Sig Dispense Refill metFORMIN XR (Glucophage XR) 500 mg ER 24 hr tablet Take 4 tablets by mouth daily. 4 po qdinner 360tablet 1 lisinopriL (Zestril) 10 mg Tablet Take 10 mg by mouth daily. montelukast (Singulair) 10 mg Tablet Take 10 mg by mouth nightly. levothyroxine (Synthroid) 150 mcg Tablet Take 150 mcg by mouth daily. levocetirizine (XYZAL) 5 mg Tablet Take 1 tablet by mouth daily. 90 tablet 3 sertraline (Zoloft) 50 mg Tablet Take 50 mg by mouth daily. Ginkgo Biloba 40 mg Tablet Take by mouth 2 times daily. Echinacea Purpurea Extract (Echinacea) 125 mg Tablet echinacea Minoxidil 5 % Foam lactobacillus rhamnosus, GG, (CULTURELLE) 10 billion cell Capsule Take 1 capsule by mouth daily. Biotin 1 mg Tablet Take by mouth. [place]-3 Fatty Acids 100 mg Tablet, Chewable Daily sulfacetamide (KLARON) 10 % Suspension Apply topically to face 1-2 times daily for rosacea 118 mL 3 Allergies: Adhesive tape, Citalopram, Ketorolac, Mold, and Adhesive Family History: Family History Problem Relation Age of Onset Asthma Mother Allergic Rhinitis Mother Allergic Rhinitis Father Asthma Sister Allergic Rhinitis Sister Allergic Rhinitis Brother Social History: reports that she has quit smoking. She has never used smokeless tobacco. She reports current alcohol use. She reports that she does not currently use drugs. Review of Systems: A 10 point review of systems was performed. Pertinent positives and negatives are listed in the above HPI. All other systems are negative. Physical Exam: Vital Signs: BP 111/68 Pulse 60 Temp 36.3 ??C (97.3 ??F) (Temporal) Resp 16 Ht 165.1 cm (5'5) Wt 119.5 kg (263 lb 6.4 oz) SpO2 98% BMI 43.83 kg/m?? General appearance: Alert and oriented, appears stated age, well groomed HEENT: No scleral icterus, normocephalic, atraumatic Skin: No jaundice Heart: Regular rate Lungs: Symmetric chest rise, no distress Abdomen: Non distended, soft Extremities: Moves all four extremities, no gross deformity. Assessment and Recommendation: A 57 y.o.-old female with obesity. Plan to proceed with lap sleeve gastrectomy. Annabella Borrero MD General Surgery Minimally Invasive Surgery [phone] documented in this encounter Miscellaneous Notes * Op Note - Annabella Borrero MD - 10/08/2022 3:31 PM EDT [facility] [place]ative [place] Patient Name: Liss Mosley : [id number] MR#: [id number] Case Date: 10/08/2022 Surgeon: Surgeon(s) and Role: * Annabella Borrero MD - Primary * Mirna Holt MD - Resident - Assisting Preoperative diagnosis: Obesity Postoperative diagnosis: Obesity Procedure(s) (LRB): @LAPAROSCOPY, SURG/GASTRIC RESTRICTIVE PROC, LONGITUDINAL GASTRECTOMY (WRVU 20.38) (N/A) EGD, UPPER GI ENDOSCOPY (WRVU 2.09) (N/A) Findings: Sleeve gastrectomy created over a 36fr bougie Anesthesia: General Estimated Blood Loss: 13cc Specimens removed during surgery: Order Name Source Comment Collection Info Order Time SPECIMEN TO PATHOLOGY Portion of Stomach-perm Obesity Portion of Stomach excision No 10/08/2022 4:36 PM Time specimen removed from patient: 4:25 PM Number of tissue samples (in container) 1 Drains: None Surgical Closure: Primary Closure - skin incision is completely closed without any wires, edelmira, drains or other devices Disposition: awakened from anesthesia, extubated and taken to the recovery room in a stable condition, having suffered no apparent untoward event. Condition: doing well without problems (Please see the Surgical Encounter Summary for any Implant and Specimen details pertinent to this patient.) HPI/Surgical Indications:Liss Mosley is a 57 y.o. old female who has medically complicated morbid obesity. Body mass index is 43.83 kg/m??.. The patient has HTN, TESSA and musculoskeletal issues as comorbidities of her obesity and meets the NIH criteria for weight reduction surgery as a medical necessity. The patient is taken to the Operating Room today for bariatric surgery. Weight: Patient Vitals for the past 24 hrs: Weight 10/08/22 1313 119.5 kg (263 lb 6.4 oz) Height: Patient Vitals for the past 24 hrs: Height 10/08/22 1313 165.1 cm (5' 5) DESCRIPTION OF OPERATION: The patient's identity and informed consent were verified in the pre-operative holding area. Subcutaneous lovenox was administered for DVT prophylaxis. Liss Mosley was taken to the operating room and placed in Supine position. Bilateral sequential compression devices placed. Anesthesia was induced without complications; see anesthesia record for details. The patient was prepped and drapedin sterile fashion. Time out was performed and preoperative antibiotics given. A 5mm port was placed periumbilically under direct visualization and the abdomen was insufflated with normal opening pressures. A 5mm port was then placed in the left lateral abdomen. The periumbilical port was upsized to an 11mm port. The remaining ports were all placed under direct vision including a 5mm port in the right upper abdomen and a 15mm port in the right mid abdomen. A 5mm incision was made in the subxyphoid space and a Trista liver retractor was placed. A point on the greater curvature of the stomach was identified approximately 7 cm proximal to the pylorus. At this point, theLigasure device was used to open the greater curvature of the stomach. A 36-Persian bougie was then placed into the abdomen after removing the orogastric tube used to decompress the stomach. A reinforced 60mm black load EndoGIA stapler was then used to fire the first row at the point that was dissected on the greater curvature and toward the bougie on the lesser curvature. Successive firings of the reinforced 60mm black load EndoGIA stapler were then used to create the sleeve along the edge of the bougie toward the angle of His. The angle of His was dissected posteriorly through the lesser sacprior to applying the final staple load to ensure complete division of the stomach. The staple linewas then clipped for additional hemostasis. Attention was now turned to the gastric remnant. The greater curvature of the stomach was dissectedwith the Ligasure device to take all of the vessels. Once this was completed, the resected stomach was removed from the abdomen. The bougie was removed and an endoscope was passed orally and guided into the sleeve. A bowel clampwas then placed on the end of the sleeve gastrectomy and the sleeve was endoscopically insufflated under external saline submersion. This did not reveal any evidence of a leak. Endoscopic examinationof the sleeve revealed it to be patent and intact. The sleeve was deflated and endoscope was removed. The bowel clamp was removed. The fascia of the 15-mm port was closed with #0 Vicryl via a suture passer. The Trista retractorwas removed under direct visualization. The abdomen was desufflated and ports were removed. The skin was injected with local anesthesia and closed with 4-0 Monocryl subcuticular sutures. They were dressed with steristrips. The patient tolerated the procedure well. Attestation: Case Date: 10/08/2022 I was present and I participated during the entire procedure (does not need to include opening and closing). Annabella Borrero MD 10/08/2022 Surgical Infection Prevention Bundle Used? N/A documented in this encounter Plan of Treatment Upcoming Encounters Date Type Department Care Team (Late st Contact Info) Description 04/13/2024 3:20 PM EST Office Visit Dermatology at [facility] [address] [place] [address] Felicitas Llanes MD [facility] DR MODESTA [place] [address] 04/26/2024 4:00 PM EST Office Visit Nephrology Hypertension at [facility] [place] [address] Denia Xiao APRN [facility] [place] [address] documented as of this encounter Goals Goal Patient Goal Type Associated Problems Recent Progress Patient-Stated? Author movement Exercise No Arsh So Note: Try cardio chair exercises. [employer]iter will send links to videos. Self monitoring [...] the pause (STOP, and urge surfing. [employer]iter will mail hand-outs. documented as of this encounter Procedures Procedure Name Priority Date/Time Associated Diagnosis Comments HEMOGRAM Timed 10/09/2022 12:30 PM EDT DIFFERENTIAL, AUTOMATED Timed 10/09/2022 12:30 PM EDT CBC (WITH DIFF) Timed 10/09/2022 12:30 PM EDT HEMOGRAM Routine 10/09/2022 3:15 AM EDT DIFFERENTIAL, AUTOMATED Routine 10/09/2022 3:15 AM EDT CBC (WITH DIFF) Routine 10/09/2022 3:15 AM EDT PHOSPHORUS Routine 10/09/2022 3:15 AM EDT MAGNESIUM Routine 10/09/2022 3:15 AM EDT BASIC METABOLIC PANEL Routine 10/09/2022 3:15 AM EDT SPECIMEN TO PATHOLOGY Routine 10/08/2022 4:36 PM EDT SURGICAL PATHOLOGY REPORT Routine 10/08/2022 4:35 PM EDT Upper GI Endoscopy, Diagnostic ([id number]) 10/08/2022 2:58 PM EDT Obesity Laparoscopy, Surg/Gastric Restrictive Proc, Longitudinal Gastrectomy ([id number]) 10/08/2022 2:58 PM EDT Obesity POCT GLUCOSE Routine 10/08/2022 1:12 PM EDT @LAPAROSCOPY, SURG/GASTRIC RESTRICTIVE PROC, LONGITUDINA Routine 10/08/2022 12:37 PM EDT UPPER GI ENDOSCOPY Routine 10/08/2022 12 :37 PM EDT documented in this encounter Results * (ABNORMAL) Differential, Automated (10/09/2022 12:30 PM EDT) Neutrophil % 67.5 % [facility] Neutrophil Absolute 6.36(H) 1.70 - 6.10 x10(3)/mc L [facility] Lymph % 25.8 % [facility] Lymphocytes Abs 2.4 0.9 - 3.2 x10(3)/mc L [facility] Monocyte % 5.7 % [facility] Monocyte Abs 0.5 0.3 - 0.9 x10(3)/mc L [facility] Eos % 0.5 % [facility] Eosinophils Abs 0.0 0.0 - 0.4 x10(3)/mc L [facility] Basophil % 0.2 % [facility] Baso Absolute 0.0 0.0 - 0.1 x10(3)/mc L [facility] Immature Gran % 0.30 % [facility] Comment: Immature granulocytes(IG's)percentage and absolute count will include metamyelocytes, myelocytes, and promyelocytes. Blood smears from CBCs yielding IG's will be scanned manually for concordance. If this scan disagrees with the automated IG or if promyelocytes are noted, a manual differential will be performed. Immature Gran Absolute 0.03 0.00 - 0.04 x10(3)/mc L [facility] Blood 10/09/2022 12:3 0 PM EDT 10/09/2022 12:43 PM EDT Narrative Resulting Agency Comment Spec In Lab Letty GAR HEMATOLOGY ORDERABL ES [facility] [place] [address] * (ABNORMAL) Hemogram (10/09/2022 12:30 PM EDT) White Blood Cell 9.4 4.0 - 9.5 x10(3)/mc L [facility] Red Blood Cell 3.87(L) 4.00 - 5.21 x10(6)/mc L [facility] Hemoglobin 11.4(L) 11.7 - 15.5 g/dL [facility] Hematocrit 35.8 35.7 - 45.8 % [facility] Mean Cell Volume 92.5 82.6 - 94.4 fL [facility] Mean Cell Hemoglobin 29.5 27.1 - 32.0 pg [facility] Mean Cell Hemoglobin Concentration 31.8 31.7 - 35.0 g/dL [facility] Platelet 219 145 - 357 x10(3)/mc L [facility] RDW Standard Deviation 46.9(H) 37.0 - 46.0 fL [facility] RDW coefficient of variation 13.7 11.5 - 14.1 % [facility] [place] Platelet Volume 10.3 7.6 - 12.9 fL [facility] NRBC% auto 0.0 % [facility] NRBC Absolute 0.000 0.000 - 0.000 x10(3)/ L [facility] Blood 10/09/2022 12:3 0 PM EDT 10/09/2022 12:43 PM EDT Narrative Resulting Agency Comment Spec In Lab Letty GAR HEMATOLOGY ORDERABL ES Performing Organization Address City/State/[facility] Co de Phone Number [facility] [place] [address] * (ABNORMAL) Differential, Automated (10/09/2022 3:15 AM EDT) Neutrophil % 80.7 % [facility] Neutrophil Absolute 5.69 1.70 - 6.10 x10(3)/mc L [facility] Lymph % 15.1 % [facility] Lymphocytes Abs 1.1 0.9 - 3.2 x10(3)/mc L [facility] Monocyte % 3.6 % [facility] Monocyte Abs 0.2(L) 0.3 - 0.9 x10(3)/ L [facility] Eos % 0.0 % [facility] Eosinophils Abs 0.0 0.0 - 0.4 x10(3)/mc L [facility] Basophil % 0.3 % [facility] Baso Absolute 0.0 0.0 - 0.1 x10(3)/mc L [facility] Immature Gran % 0.30 % [facility] Comment: Immature granulocytes(IG's)percentage and absolute count will include metamyelocytes, myelocytes, and promyelocytes. Blood smears from CBCs yielding IG's will be scanned manually for concordance. If this scan disagrees with the automated IG or if promyelocytes are noted, a manual differential will be performed. Immature Gran Absolute 0.02 0.00 - 0.04 x10(3)/ L [facility] Blood 10/09/2022 3:15 AM EDT 10/09/2022 3:24 AM EDT Narrative Resulting Agency Comment Spec In Lab Mirna Holt MD HEMATOLOGY ORDERABLE S Performing Organization Address City/State/[facility] Co de Phone Number [facility] [place] [address] * (ABNORMAL) Hemogram (10/09/2022 3:15 AM EDT) White Blood Cell 7.0 4.0 - 9.5 x10(3)/mc L [facility] Red Blood Cell 3.93(L) 4.00 - 5.21 x10(6)/ L [facility] Hemoglobin 11.7 11.7 - 15.5 g/dL [facility] Hematocrit 36.4 35.7 - 45.8 % [facility] Mean Cell Volume 92.6 82.6 - 94.4 fL [facility] Mean Cell Hemoglobin 29.8 27.1 - 32.0 pg [facility] Mean Cell Hemoglobin Concentration 32.1 31.7 - 35.0 g/dL [facility] Platelet 211 145 - 357 x10(3)/mc L [facility] RDW Standard Deviation 45.5 37.0 - 46.0 fL [facility] RDW coefficient of variation 13.3 11.5 - 14.1 % [facility] Mean Platelet Volume 9.8 7.6 - 12.9 fL [facility] NRBC% auto 0.0 % [facility] NRBC Absolute 0.000 0.000 - 0.000 x10(3)/mc L [facility] Blood 10/09/2022 3:15 AM EDT 10/09/2022 3:24 AM EDT Narrative Resulting Agency Comment Spec In Lab Mirna Holt MD HEMATOLOGY ORDERABLE S [facility] [place] [address] * (ABNORMAL) Phosphorus (10/09/2022 3:15 AM EDT) Phosphorus 4.6(H) 2.5 - 4.5 mg/dL [facility] Blood 10/09/2022 3:15 AM EDT 10/09/2022 3:24 AM EDT Narrative Resulting Agency Comment Spec In Lab Annabella Borrero MD CHEMISTRY ORDERABLES Performing Organization Address City/[facility] Co de Phone Number [facility] [place] [address] * Magnesium (10/09/2022 3:15 AM EDT) Magnesium 0.88 0.69 - 1.07 mmol/L [facility] Blood 10/09/2022 3:15 AM EDT 10/09/2022 3:24 AM EDT Narrative Resulting Agency Comment Spec In Lab Annabella Borrero MD CHEMISTRY ORDERABLES Performing Organization Address [facility] Co de Phone Number [facility] [place] [address] * (ABNORMAL) Basic Metabolic Panel (non-fasting) (10/09/2022 3:15 AM EDT) Glucose 124 65 - 199 mg/dL [facility] Comment:Diabetes: >=200 mg/d L plus symptoms Blood Urea Nitrogen 22(H) 8 - 18 mg/dL [facility] Creatinine 0.74 0.70 - 1.20 mg/dL [facility] Sodium 134(L) 135 - 145 mmol/L [facility] Potassium 4.7 3.5 - 5.0 mmol/L [facility] Comment: Please note: ??Patients with WBC >100,000 may have falsely elevated Potassium levels. ??For accurate Potassium quantification in these patients send serum separator tube (gold top) for subsequent determinations. ??Contact the Clinical Chemistry Laboratory if there are any questions. Chloride 103 98 - 107 mmol/L [facility] Carbon Dioxide 21(L) 22 - 31 mmol/L [facility] Anion Gap 10 5 - 15 mmol/L [facility] Calcium 8.7 8.5 - 10.5 mg/dL [facility] Est Glomerular Filtration Rate 93 >=60 mL/min/1. 73 m?? [facility] Comment: This patient's estimated GFR was [...] and symptoms in addition to eGFR. Blood 10/09/2022 3:15 AM EDT 10/09/2022 3:24 AM EDT Narrative Resulting Agency Comment Spec In Lab Annabella Borrero MD CHEMISTRY ORDERABLES Performing Organization Address City/[facility] Co de Phone Number [facility] [place] [address] * Specimen to Pathology (10/08/2022 4:36 PM EDT) AP Specimen 10/08/2022 4:36 PM EDT 10/08/2022 4:[address] [facility] - 10/08/2022 4:36 PM EDT Specimen requisition ordered. ??Separate Pathology report to follow Annabella Borrero MD PATHOLOGY/CYTOLOGY O RDERABLES Performing Organization Address City/[facility]/ZIP Co de Phone Number [facility] [place] [address] * Surgical Pathology Report (10/08/2022 4:35 PM EDT) Final Diagnosis [id number] ? [facility] [address] The signing pathologist has (i) examined the relevant preparation(s) for the specimen(s) and (ii) rendered or confirmed the diagnosis(es). . ?Surgical Pathology DIAGNOSIS A - Portion of Stomach, excision: - Segment of gastric body/fundus with fundic gland polyp and mild chronic inflammation. - ??Immunostaining for H. pylori is negative. Electronically signed by: ?Edgar HOWARD PhD, [place] Verified: ??10/16/2022 9:18 ?? Pathologist Performed at: ??-[facility] [place] Dept. of [place]ology, [place] [address] [employer] Worker: Araceli Chowdary MD, FCAP, ??CLIA Certificate: [id number] ADDITIONAL STUDIES Immunohistochemistry Studies: Formalin-fixed, paraffin-embedded tissue sections are studied using the polymer technique with appropriate positive and negative controls. ?These IHC studies provide the pathologist with adjunctive diagnostic information. Antibody specificity has been verified by testing antibodies on a series of in-house tissues with known immunohistochemical performance characteristics. The clinical interpretation of any antibody positive staining or its absence is evaluated within the context of clinical presentation, morphology, histopathological criteria and other diagnostic tests. Block ? Antibody ?Result (Positive/Negative) A1 ? H. pylori ?Negative SPECIMEN(S) SUBMITTED A - Portion of Stomach, excision (1) CLINICAL INFORMATION Obesity SPECIMEN PROCESSING A - Labeled/Fixative: Portion of stomach, fresh. Quantity/Size: Single, 22.5 x 5.0 x 3.0 cm. Tissue Description: Stapled wedge of stomach with pink-nash, smooth and glistening serosa. The mucosa is red-brown with the usual rugal folds and one nash-brown 0.4 x 0.3 x 0.1 cm polyp. Sections/Processing: Financial Services Representative sections in 1 cassettes as follows: ?A1: ??Financial Services Representative mucosa, including the polyp ??vmj 10/16/2022 9:18 AM EDT [facility] STOMACH STRUCTURE / Unknown 10/08/2022 4:35 PM EDT 10/08/2022 4:35 PM EDT Annabella Borrero MD PATHOLOGY/CYTOLOGY O [facility] [address] [place] [address] * POCT Glucose (10/08/2022 1:12 PM EDT) Glucose, POC 90 65 - 199 mg/dL [facility] Comment: Supplemental ranges: <140 mg/dL before meals <180 mg/dL all other times of the day Blood 10/08/2022 1:12 PM EDT 10/08/2022 1:12 PM EDT Annabella Borrero MD POINT OF CARE TEST O [facility] [place] [address] documented in this encounter Visit Diagnoses Diagnosis Gastric bypass status for obesity- Primary Bariatric surgery status documented in this encounter Admitting Diagnoses Diagnosis Gastric bypass status for obesity Bariatric surgery status documented in this encounter Administered Medications Inactive Administered Medications - up to 3 most recent administrations Medication Order MAR Action Action Date Dose Rate Site acetaminophen (Tylenol) (32.02 mg/mL) oral liquid 650 mg 650 mg, Oral, EVERY 6 HOURS SCHEDULED, First dose on Fri10/09/22 at 0000, Until Discontinued, Administer starting post-op day one, once tolerating PO Maximum dose of acetaminophen is 3,000 mg from all sources in 24 hours. When ordered for pain, acetaminophen should be given even when other ordered pain medications are indicated., Routine Given 10/09/2022 6:00 AM EDT 650 mg Given 10/09/2022 12:04 AM EDT 650 mg acetaminophen (Tylenol) tablet 1,000 mg 1,000 mg, Oral, ONCE, 1 dose, On Fri10/08/22 at 1345, Maximum dose of acetaminophen is 4,000 mg from all sources in 24 hours. When ordered for pain, acetaminophen should be given even when other ordered pain medications are indicated. , Day of Surgery (Day of Procedure), Routine Given 10/08/2022 1:52 PM EDT 1,000 mg acetaminophen (Tylenol) tablet 650 mg 650 mg, Oral, EVERY 6 HOURS SCHEDULED, First dose on Fri10/09/22 at 1200, Until Discontinued, Maximum dose of acetaminophen is 4,000 mg from all sources in 24 hours. When ordered for pain, acetaminophen should be given even when other ordered pain medications are indicated. , Routine Given 10/09/2022 12:35 PM EDT 650 mg aprepitant (Emend) capsule 40 mg 40 mg, Oral, ONCE, 1 dose, On Fri10/08/22 at 1345, Day of Surgery (Day of Procedure), Routine Given 10/08/2022 1:52 PM EDT 40 mg celecoxib (CeleBREX) capsule 200 mg 200 mg, Oral, 2 TIMES DAILY, First dose on Fri10/09/22 at 0900, Until Discontinued, Routine Given 10/09/2022 9:02 AM EDT 200 mg celecoxib (CeleBREX) capsule 400 mg 400 mg, Oral, ONCE, 1 dose, On Fri10/08/22 at 1345, Day of Surgery (Day of Procedure), Routine Given 10/08/2022 2:04 PM EDT 400 mg enoxaparin (Lovenox) (40 mg/0.4 mL) subcutaneous injection 40 mg 40 mg, Subcutaneous, ONCE, 1 dose, On Fri10/08/22 at 1345, To be given in preop area, Day of Surgery (Day of Procedure), Routine Given 10/08/2022 2:19 PM EDT 40 mg Right Lower Quadrant enoxaparin (Lovenox) (40 mg/0.4 mL) subcutaneous injection 40 mg 40 mg, Subcutaneous, EVERY 12 HOURS SCHEDULED (2 times per day), First dose (after last modification) on Fri10/09/22 at 0730, Until Discontinued, Routine Given 10/09/2022 9:08 AM EDT 40 mg lactated ringers infusion 1,000 mL, at 125 mL/hr, Intravenous, CONTINUOUS, Starting on Fri10/08/22 at 1830, Until Fri10/09/22 at 1557 New Bag 10/09/2022 5:33 AM EDT 1,000 mLs 125 mL/hr Rate/Dose Verify 10/09/2022 12:05 AM EDT 125 mL /hr New Bag 10/08/2022 8:00 PM EDT 1,000 mLs 125 mL/hr levothyroxine (Synthroid) tablet 150 mcg 150 mcg, Oral, DAILY, First dose on Fri10/09/22 at 0600, Until Discontinued, Routine Given 10/09/2022 6:00 AM EDT 150 mcg ondansetron (pf) (Zofran) (2 mg/mL) injection 4 mg 4 mg, Intravenous, EVERY 30 MIN PRN, 2 doses, Starting on Fri10/08/22 at 1723, Until Fri10/08/22 at 1934, Nausea, Maximum total dose of 8 mg (including OR administration). If multiple antiemetics ordered, use ondansetron first and if ineffective use prochlorperazine or haloperidoL second, PACU Recovery Given 10/08/2022 6:07 PM EDT 4 mg ondansetron (pf) (Zofran) (2 mg/mL) injection 4 mg 4 mg, Intravenous, EVERY 8 HOURS SCHEDULED, First dose on Fri10/08/22 at 2200, Until Discontinued, For nausea please use ondansetron as the first choice; prochlorperazine as a second choice. Call provider if not effective. Given 10/09/2022 6:00 AM EDT 4 mg Given 10/08/2022 9:26 PM EDT 4 mg pantoprazole (Protonix) injection 40 mg 40 mg, Intravenous, DAILY, First dose on Fri10/08/22 at 2000, Until Discontinued, Reconstitute with 10 mL of normal saline to a concentration of 4 mg/mL and inject slowly over 2 minutes. Reconstitute with 10 mL of normal saline to a concentration of 4 mg/mL and inject slowly over 2 minutes., Routine Given 10/09/2022 9:02 AM EDT 4 0 mg Given 10/08/2022 8:08 PM EDT 40 mg prochlorperazine (Compazine) (5 mg/mL) injection 10 mg 10 mg, Intravenous, EVERY 6 HOURS PRN, Starting on Fri10/08/22 at 1805, Until Fri10/09/22 at 1557, Nausea, Vomiting, For nausea please use ondansetron as the first choice; prochlorperazine as a second choice. Call provider if not effective., Routine Given 10/09/2022 12:12 AM EDT 10 mg sertraline (Zoloft) tablet 50 mg 50 mg, Oral, DAILY, First dose on Fri10/09/22 at 0900, Until Discontinued, Cut in half and give both halves, Routine Given 10/09/2022 9:02 AM EDT 50 mg simethicone (Gas-X Chew) 80 mg chewable tablet 80 mg 80 mg, Oral, ONCE, 1 dose, On Fri10/09/22 at 0045, Routine Given 10/09/2022 12:45 AM EDT 80 mg sodium chloride 0.9 % (flush) (BD PosiFlush Normal Saline 0.9) flush 5 mL 5 mL, Intravenous, 2 TIMES DAILY, First dose on Fri10/08/22 at 2100, Until Discontinued, Recovery (Recovery-Hospital Unit), Routine Given 10/09/2022 9:02 AM EDT 5 mLs Given 10/08/2022 8:08 PM EDT 5 mLs documented in this encounter Active and Recently Administered Medications Times are shown in EDT. Scheduled Medication Order 10/07/2022 10/08/2022 10/09/2022 acetaminophen (Tylenol) (32.02 mg/mL) oral liquid 650 mg (CANCELED) 650 mg, Oral, EVERY 6 HOURS SCHEDULED, First dose on Fri10/09/22 at 0000, Until Discontinued, Administer starting post-op day one, once tolerating PO Maximum dose of acetaminophen is 3,000 mg from all sources in 24 hours. When ordered for pain, acetaminophen should be given even when other ordered pain medications are indicated., Routine 0004 (Given - Provider: Stefani Schmid RN)0600 (Given - Provider: Stefani Schmid RN) acetaminophen (Tylenol) tablet 1,000 mg (COMPLETED) 1,000 mg, Oral, ONCE, 1 dose, On Fri10/08/22 at 1345, Maximum dose of acetaminophen is 4,000 mg from all sources in 24 hours. When ordered for pain, acetaminophen should be given even when other ordered pain medications are indicated. , Day of Surgery (Day of Procedure), Routine 1352 (Given - Provider: Maribel Avila RN) acetaminophen (Tylenol) tablet 650 mg 650 mg, Oral, EVERY 6 HOURS SCHEDULED, First dose on Fri10/09/22 at 1200, Until Discontinued, Maximum dose of acetaminophen is 4,000 mg from all sources in 24 hours. When ordered for pain, acetaminophen should be given even when other ordered pain medications are indicated. , Routine 1235 (Given - Provider: Anita Wilson RN) aprepitant (Emend) capsule 40 mg (COMPLETED) 40 mg, Oral, ONCE, 1 dose, On Fri10/08/22 at 1345, Day of Surgery (Day of Procedure), Routine 1352 (Given - Provider: Maribel Avila RN) celecoxib (CeleBREX) capsule 200 mg 200 mg, Oral, 2 TIMES DAILY, First dose on Fri10/09/22 at 0900, Until Discontinued, Routine 09 (Given - Provider: Roseanne Vaughn RN) celecoxib (CeleBREX) capsule 400 mg (COMPLETED) 400 mg, Oral, ONCE, 1 dose, On Fri10/08/22 at 1345, Day of Surgery (Day of Procedure), Routine 1404 (Given - Provider: Maribel Avila RN) enoxaparin (Lovenox) (40 mg/0.4 mL) subcutaneous injection 40 mg (COMPLETED) 40 mg, Subcutaneous, ONCE, 1 dose, On Fri10/08/22 at 1345, To be given in preop area, Day of Surgery (Day of Procedure), Routine 1419 (Given - Provider: Maribel Avila RN) enoxaparin (Lovenox) (40 mg/0.4 mL) subcutaneous injection 40 mg 40 mg, Subcutaneous, EVERY 12 HOURS SCHEDULED (2 times per day), First dose (after last modification) on Fri10/09/22 at 0730, Until Discontinued, Routine 729 (Not Given - Provider: Connie Regan RN - Reason: Patient/family refused)907 (Given - Provider: Roseanne Vaughn RN - Comment: marked not given by mistakes earlier - verified with primary RN Connie about giving.) levothyroxine (Synthroid) tablet 150 mcg 150 mcg, Oral, DAILY, First dose on Fri10/09/22 at 0600, Until Discontinued, Routine 599 (Given - Provider: Stefani Schmid RN) ondansetron (pf) (Zofran) (2 mg/mL) injection 4 mg 4 mg, Intravenous, EVERY 8 HOURS SCHEDULED, First dose on Fri10/08/22 at 2200, Until Discontinued, For nausea please use ondansetron as the first choice; prochlorperazine as a second choice. Call provider if not effective. 2125 (Given - Provider: Stefani Schmid RN) 599 (Given - Provider: Stefani Schmid RN) pantoprazole (Protonix) injection 40 mg 40 mg, Intravenous, DAILY, First dose on Fri10/08/22 at 2000, Until Discontinued, Reconstitute with 10 mL of normal saline to a concentration of 4 mg/mL and inject slowly over 2 minutes. Reconstitute with 10 mL of normal saline to a concentration of 4 mg/mL and inject slowly over 2 minutes., Routine 2007 (Given - Provider: Stefani Schmid RN) 901 (Given - Provider: Roseanne Vaughn RN) sertraline (Zoloft) tablet 50 mg 50 mg, Oral, DAILY, First dose on Fri10/09/22 at 0900, Until Discontinued, Cut in half and give both halves, Routine 901 (Given - Provider: Roseanne Vaughn RN) simethicone (Gas-X Chew) 80 mg chewable tablet 80 mg (COMPLETED) 80 mg, Oral, ONCE, 1 dose, On Fri10/09/22 at 0045, Routine 44 (Given - Provider: Stefani Schmid RN) sodium chloride 0.9 % (flush) (BD PosiFlush Normal Saline 0.9) flush 5 mL 5 mL, Intravenous, 2 TIMES DAILY, First dose on Fri10/08/22 at 2100, Until Discontinued, Recovery (Recovery-Hospital Unit), Routine 2007 (Given - Provider: Stefani Schmid RN) 0902 (Given - Provider: Roseanne Vaughn RN) Continuous Medication Order 10/07/2022 10/08/2022 10/09/2022 lactated ringers infusion (CANCELED) 1,000 mL, at 100 mL/hr, Intravenous, CONTINUOUS, Starting on Fri10/08/22 at 1345, Until Fri10/08/22 at 1934, Day of Surgery (Day of Procedure) 1459 (New Bag - Provider: Devon Reddy CRNA)1615 (New Bag - Provider: Devon Reddy CRNA)1716 (Anesthesia Volume Adjustment - Provider: Devon Reddy CRNA) lactated ringers infusion 1,000 mL, at 125 mL/hr, Intravenous, CONTINUOUS, Starting on Fri10/08/22 at 1830, Until Fri10/09/22 at 1557 1804 (New Bag - Provider: Yolanda Jimenez RN)1903 (Paused - Provider: Chey Ohara RN - Comment: IV removed inadvertently. awaiting new access)1999 (New Bag - Provider: Stefani Schmid RN) 0005 (Rate/Dose Verify - Provider: Stefani Schmid RN)0533 (New Bag - Provider: Stefani Schmid RN) PRN Medication Order 10/07/2022 10/08/2022 10/09/2022 BUpivacaine (pf) (Marcaine) (2.5 mg/mL) 0.25% injection (CANCELED) PRN, Starting on Fri10/08/22 at 1535, Until Fri10/09/22 at 1557, Intra-Operative (Intra-Procedure), Routine 1535 (Given - Provider: Annabella Borrero MD)1640 (Given - Provider: Annabella Borrero MD) lidocaine (Xylocaine) 1% (10 mg/mL) injection 3 mg 3 mg (0.3 mL), Subcutaneous, ONCE PRN, 1 dose, Starting on Fri10/08/22 at 1933, Until Fri10/09/22 at 1557, for discomfort with PIV insertion, Recovery (Recovery-Hospital Unit), Routine ondansetron (pf) (Zofran) (2 mg/mL) injection 4 mg (CANCELED) 4 mg, Intravenous, EVERY 30 MIN PRN, 2 doses, Starting on Fri10/08/22 at 1723, Until Fri10/08/22 at 1934, Nausea, Maximum total dose of 8 mg (including OR administration). If multiple antiemetics ordered, use ondansetron first and if ineffective use prochlorperazine or haloperidoL second, PACU Recovery 180 (Given - Provider: Yolanda Jimenez, KONG) oxyCODONE (Roxicodone) (1 mg/mL) oral liquid 5 mg 5 mg, Oral, EVERY 6 HOURS PRN, Starting on Fri10/08/22 at 1759, Until Fri10/09/22 at 1557, Pain, Moderate-Severe pain 4-10, Routine prochlorperazine (Compazine) (5 mg/mL) injection 10 mg 10 mg, Intravenous, EVERY 6 HOURS PRN, Starting on Fri10/08/22 at 1805, Until Fri10/09/22 at 1557, Nausea, Vomiting, For nausea please use ondansetron as the first choice; prochlorperazine as a second choice. Call provider if not effective., Routine 0012 (Given - Provider: Stefani Schmid RN) sodium chloride 0.9 % (flush) (BD PosiFlush Normal Saline 0.9) flush 5-20 mL 5-20 mL, Intravenous, EVERY 1 MIN PRN, Starting on Fri10/08/22 at 1933, Until Fri10/09/22 at 1557, flush, Flush pertains to all indwelling lines. Flush per protocol found in the job aid using the link provided on this medication record., Recovery (Recovery-Hospital Unit), Routine documented in this encounter Care Teams Replenishment Associate Relationship Specialty Start Date End Date Barbara, Susan Mobley APRN PCP - General Internal Medicine 10/03/22 09/14/23 documented as of this encounter
--- OUTSIDE RECORDS SUMMARY | 2024-03-20 11:52 | XMS_ITS | Encounter Summary ---
Author Organization [facility], Located Within [facility] [place] [address] Care Team Providers Care Blending Technician Name Role Phone Susan Jimenez APRN Primary Care Provider [phone]- [phone] Encounter Details Date Type Department Care Team (Late st Contact Info) Description 10/10/2022 Telephone [place] [phone] Nicolás Jones MD [facility] [place] [address] Social History Tobacco Use Types Packs/Day Years Used Date Smoking Tobacco: Former Smokeless Tobacco: Never Comments:quit 1990 Alcohol Use Standard Drinks/Week Comments Yes 0 (1 standard drink = 0.6 oz pur e alcohol) <1 per day [facility] Inpatient Questions Answer Date Recorded Does Anyone [...] PM EST Office Visit Dermatology at [facility] [address] [place] [phone] Felicitas Llanes MD [facility] DR [facility] [place] [address] 04/26/2024 4:00 PM EST Office Visit [place] [address] Denia Xiao APRN [facility] [place] [address] documented as of this encounter Goals Goal Patient Goal Type Associated Problems Recent Progress Patient-Stated? Author movement Exercise No Arsh So Note: Try cardio chair exercises. Health Thread Tool Grinder Set Up Operator will send links to videos. Self [...] the pause (STOP, and urge surfing. Health Thread Tool Grinder Set Up Operator will mail hand-outs. documented as of this encounter Visit Diagnoses Not on filedocumented in this encounter Care Teams Blending Technician Relationship Specialty Start Date End Date Barbara, Susan Mobley APRN PCP - General Internal Medicine 10/03/22 09/14/23 documented as of this encounter
--- OUTSIDE RECORDS SUMMARY | 2024-03-20 11:52 | XMS_ITS | Encounter Summary ---
Author Organization [facility] Address [facility] [place] [address] Care Team Providers Care Manager Trading Name Role Phone Carolyn Christianson APRN Primary Care Provider [phone] [phone] Encounter Details Date Type Department Care Team (Latest Contact Info) Description 07/09/2022 12:00 PM EDT TH Visit (TeleHealth) [place] [phone] Apolonia Lowry, PhD [facility] [address] [facility] [place] [address] Class 3 severe obesity with body mass index (BMI) of 45.0 to 49.9 in adult, unspecified obesity type, unspecified whether serious comorbidity present Social History Tobacco Use Types Packs/Day Years [...] as of this encounter Progress Notes * Apolonia Lowry, PhD - 07/09/2022 12:00 PM EDT [facility] PSY[facility]OLOY FOLLOW UP NOTE N [facility] [address] Dept: [phone] Loc: [phone] 07/09/2022 12:24 PM Liss Mosley is a 56 y.o. female who was referred for evaluation and preparation for potential bariatric surgery.Liss was previously evaluated and concerns were raised about bariatric surgery readiness. Liss was seen for less than 15 min. Patient was alone, and was seen Telehealth. Liss Mosley gave permission for and was seen for today's appointment with a Telehealth visit. During this visit they were located at home in [place]. Liss Mosley is aware that for any urgent matter they can call [phone].. RECOMMENDATION BASED ON PSYCHOLOGICAL EVALUATION GREEN LIGHT - Based on the information gathered during this assessment there are no contraindications with Liss Mosley proceeding with surgery. The follow up plan is as follows: No f/u SUMMARY The decision noted above is based on the followin. Liss has made significant weight loss attempts in the past, but without lasting success. 2. Liss experienced little mental health problems in the past year. 3. Liss experienced little mental health problems earlier in life. 4. Liss is not engaging in problematic eating behaviors. 5. Liss is knowledgeable about the surgery and related risks. 6. Liss's motivation for surgery is: good 7. Liss's social support is: good 8. Liss is aware of expected surgery weight loss with surgery. 9. Liss is aware of the habit changes that will need to occur and is actively engaged in changing those now. 10. Liss does not have a history of adherence/attendance issues. DIAGNOSIS Obesity The above assessment and plan was based on the following information obtained during the appointment. Please note section in blue indicates updated information from the previous evaluation: WEIGHT Initial Weight: 280 lbs Weight at previous evaluation: 280 lbs Weight at previous evaluation: 281 lbs Current Weight as of 07/09/2022: 265 lbs (home scale) Weight changes since evaluation: decreased Progress towards weight loss goal of 266 lbs: good PROBLEM EATING BEHAVIORS From previous evaluation: History of over eating (i.e., eating to the point of being uncomfortably full): yes If h/o over eating, last episode: Last week - triggered by sweets. Currently avoiding bringing these foods into her home 05/16/2022 History of over eating (i.e., eating to the point of being uncomfortably full): yes If h/o over eating, last episode: Has moved to a more moderation approach - made banana bread with grandson recently and had 1 slice with him. Work colleague has brought in peanut butter cup (favorite food), is having in moderation - 1 peanut butter cup 2-3 times/wk POST SURGERY EATING HABIT CHANGES AND READINESS From previous evaluation: ??? eating and drinking by 30 minutes: Aware of the need and practicing about 50% of the time and has been practicing at this rate for about 3 month(s). ? Sipping 6-8 8oz-glasses of water slowly: Aware of the need and practicing about 50% of the time and has been practicing at this rate for about 2-3 month(s). Other beverages: coffee, tea (decaf), ? Following a consistent meal pattern: Aware of the need and practicing about 100% of the time during the week. Struggles on the weekend. 05/16/22 ??? eating and drinking by 30 minutes: Aware of the need and practicing about 70% of the time and has been practicing at this rate since the previous session. ??? Sipping 6-8 8oz-glasses of water slowly: Aware of the need and practicing about 50% of the time and has been practicing at this rate since before the previous session. Is recognizing that waiting too long to drink so is very thirsty and having a hard time regulating intake. ??? Following a consistent meal pattern: Aware of the need and practicing about 100% of the time and has been practicing at this rate since recent appointment with Susan Ulloa. 07/09/2022 Sipping 6-8 8oz-glasses of water slowly: Aware of the need and practicing about 90% of the time and has been practicing at this rate since the previous session. Current implementation of habit changes: good MENTAL HEALTH UPDATE: 05/16/22 Liss reported that overall she has been doing well. Liss reported that she recently fell at work and is recovering. Liss reported that she has been dealing with increased fatigue since starting Topiramate - asked Liss to reach out to Dr. Khalil to discuss. Liss reported that she has started having a protein shake in the morning as discussed with Susan. Liss reported that she hasbeen working with her boss on navigating bariatric needs post surgery. 07/09/2022 Animal Herder spoke to boss and got permission to have her own food. HEALTH BEHAVIORS From previous evaluation: Nicotine: former smoker, quit 31 years ago. Had 1 cigarette several months ago 05/16/22 Nicotine: No recent cigarettes 07/09/2022: Nicotine: No recent cigarettes The assessment and plan for Liss Mosley are detailed at the beginning of this report. documented in this encounter Plan of Treatment Upcoming Encounters Date Type Department Care Team (Late st Contact Info) Description 04/13/2024 3:20 PM EST Office Visit Dermatology at [place] [address] [place] [address] Felicitas Llanes MD [facility] [address] MO[facility]STA [place] [address] 04/26/2024 4:00 PM EST Office Visit [place] [address] Denia Xiao APRN [facility] [place] [address] documented as of this encounter Goals Goal Patient Goal Type Associated Problems Recent Progress Patient-Stated? Author movement Exercise No Arsh So Note: Try cardio chair exercises. Health Ict Managers will send links to videos. Self monitoring [...] the pause (STOP, and urge surfing. Health Ict Managers will mail hand-outs. documented as of this encounter Visit Diagnoses Diagnosis Class 3 severe obesity with body mass index (BMI) of 45.0 to 49.9 in adult, unspecified obesity type, unspecified whether serious comorbidity present documented in this encounter Care Teams Manager Trading Relationship Specialty Start Date End Date Carolyn Christianson APRN PCP - General Family Medicine 12/21/20 10/02/22 documented as of this encounter
--- OUTSIDE RECORDS SUMMARY | 2024-03-20 11:52 | XMS_ITS | Encounter Summary ---
Author Organization [facility] Address [facility] [place] [address] Care Team Providers Care Him Clerk Name Role Phone Susan Jimenez APRN Primary Care Provider [phone]- [phone] Encounter Details Date Type Department Care Team (Latest Contact Info) Description 01/27/2023 Travel Social History Tobacco Use Types Packs/Day [...] Upcoming Encounters Date Type Department Care Team ( st Contact Info) Description 04/13/2024 3:20 PM EST Office Visit Dermatology at [facility] [address] [place] [phone] Felicitas Llanes MD [facility] [address] MODESTA [place] [address] 04/26/2024 4:00 PM EST Office Visit [place] [address] Denia Xiao APRN [facility] [place] [address] documented as of this encounter Goals Goal Patient Goal Type Associated Problems Recent Progress Patient-Stated? Author movement Exercise No Arsh So Note: Try cardio chair exercises. Health Director Online Marketing will send links to videos. Self monitoring [...] pause (STOP, and urge surfing. Health Director Online Marketing will mail hand-outs. documented as of this encounter Visit Diagnoses Not on filedocumented in this encounter Care Teams Him Clerk Relationship Specialty Start Date End Date Barbara, Susan Mobley APRN PCP - General Internal Medicine 10/03/22 09/14/23 documented as of this encounter
--- OUTSIDE RECORDS SUMMARY | 2024-03-20 11:52 | XMS_ITS | Encounter Summary ---
Author Organization [facility] Address [facility] [place] [address] Care Team Providers Care Purifying Plant Operator Name Role Phone Carolyn Christianson APRN Primary Care Provider [phone] [phone] Encounter Details Date Type Department Care Team (Late st Contact Info) Description 08/29/2022 4:30 PM EDT Office [place] [phone] Denia Khalil MD [facility] DR MO[facility]STA [place] [address] PATIENT NOT SEEN Social History Tobacco Use Types Packs/Day Years [...] Sign Reading Time Taken Comments Blood Pressure 114/68 08/29/2022 3:59 PM EDT Pulse 54 08/29/2022 3:59 PM EDT Temperature - - Respiratory Rate - - Oxygen Saturation 97% 08/29/2022 3:59 PM EDT Inhaled Oxygen Concentration - - Weight 122.3 kg (269 lb 9.6 oz) 08/29/2022 3:59 PM EDT Height 165.1 cm (5' 5) 08/29/2022 3:59 PM EDT Body Mass Index 44.86 08/29/2022 3:59 PM EDT documented in this encounter Progress Notes * Denia Khalil MD - 08/29/2022 4:30 PM EDT Patient did not have visit today. Surgery team is ready to schedule her for surgery. OM visit not indicated. Patient will contact [facility] team for further instruction. This patient was not seen in this encounter. documented in this encounter Plan of Treatment Upcoming Encounters Date Type Department Care Team (Late st Contact Info) Description 04/13/2024 3:20 PM EST Office Visit Dermatology at [address] [address] Felicitas Llanes MD [facility] DR MODESTA [place] [address] 04/26/2024 4:00 PM EST Office Visit [place] [address] Denia Xiao APRN [facility] [place] [address] documented as of this encounter Goals Goal Patient Goal Type Associated Problems Recent Progress Patient-Stated? Author movement Exercise No Arsh So Note: Try cardio chair exercises. Health Bin Operator will send links to videos. Self [...] the pause (STOP, and urge surfing. Health Bin Operator will mail hand-outs. documented as of this encounter Visit Diagnoses Diagnosis DH PATIENT NOT SEEN documented in this encounter Care Teams Purifying Plant Operator Relationship Specialty Start Date End Date Carolyn Christianson APRN PCP - General Family Medicine 12/21/20 10/02/22 documented as of this encounter
--- OUTSIDE RECORDS SUMMARY | 2024-03-20 11:52 | XMS_ITS | Encounter Summary ---
Author Organization [facility] [place] [address] Care Team Providers Care Art Supervisor Name Role Phone Carolyn Christianson APRN Primary Care Provider +1 -[phone] Encounter Details Date Type Department Care Team (Latest Contact Info) Description 08/19/2022 Travel Social History Tobacco Use Types Packs/Day [...] 3:20 PM EST Office Visit Dermatology at [facility] [address] [place] [address] Felicitas Llanes MD [facility] [address] [facility] [address] 04/26/2024 4:00 PM EST Office Visit [place] [address] Denia Xiao APRN [facility] [place] [address] documented as of this encounter Goals Goal Patient Goal Type Associated Problems Recent Progress Patient-Stated? Author movement Exercise No Arsh So Note: Try cardio chair exercises. Health Grades 1 Thru 6 Home Teacher will send links to videos. Self [...] the pause (STOP, and urge surfing. Health Grades 1 Thru 6 Home Teacher will mail hand-outs. documented as of this encounter Visit Diagnoses Not on filedocumented in this encounter Care Teams Art Supervisor Relationship Specialty Start Date End Date Carolyn Christianson APRN PCP - General Family Medicine 12/21/20 10/02/22 documented as of this encounter
--- OUTSIDE RECORDS SUMMARY | 2024-03-20 11:52 | XMS_ITS | Encounter Summary ---
Author Organization [facility] [place] [address] Care Team Providers Care Birthing Nurse Name Role Phone Carolyn Christianson APRN Primary Care Provider +1 -[phone] Reason for Visit * Reason Onset Date Comments Medication Refill 07/12/2022 Encounter Details Date Type Department Care Team (Late st Contact Info) Description 07/12/2022 Refill [place] [address] Denia Khalil MD [facility] DR MODESTA [facility] [address] Class 3 severe obesity with body mass index (BMI) of 45.0 to 49.9 in adult, unspecified obesity type, unspecified whether serious comorbidity present; Insulin resistance Social History Tobacco Use Types Packs/Day Years [...] Visit Dermatology at [address] [place] [phone] Felicitas Llanes MD [facility] DR MODESTA THORNT[facility]-[place] [address] 04/26/2024 4:00 PM EST Office Visit Nephrology Hypertension at [facility] [place] [phone] Denia Xiao APRN [facility] [place] [address] documented as of this encounter Goals Goal Patient Goal Type Associated Problems Recent Progress Patient-Stated? Author movement Exercise No Arsh So Note: Try cardio chair exercises. Health Senior Field Engineer will send links to videos. Self monitoring [...] the pause (STOP, and urge surfing. Health Senior Field Engineer will mail hand-outs. documented as of this encounter Visit Diagnoses Diagnosis Class 3 severe obesity with body mass index (BMI) of 45.0 to 49.9 in adult, unspecified obesity type, unspecified whether serious comorbidity present Insulin resistance Dysmetabolic Syndrome X documented in this encounter Care Teams Birthing Nurse Relationship Specialty Start Date End Date Carolyn Christianson APRN PCP - General Family Medicine 12/21/20 10/02/22 documented as of this encounter
--- OUTSIDE RECORDS SUMMARY | 2024-03-20 11:52 | XMS_ITS | Encounter Summary ---
Author Organization [facility] [place] [address] Care Team Providers Care Manager Of Application Development Name Role Phone Susan Jimenez APRN Primary Care Provider [phone] Reason for Visit * Auth/Cert (Routine) Specialty Diagnoses / Procedures Referred By Contsrikanth t Referred To Contact Diagnoses Obesity Obesity Procedures PRO LAPAROSCOPY, SURG/GASTRIC RESTRICTIVE PROC, LONGITUDINAL GASTRECTOMY PRO UPPER GI ENDOSCOPY, DIAGNOSTIC @LAPAROSCOPY, SURG/GASTRIC RESTRICTIVE PROC, LONGITUDINAL GASTRECTOMY (WRVU 20.38) EGD, UPPER GI ENDOSCOPY (WRVU 2.09) Annabella Borrero MD [facility] [address] [facility] Referral ID Status Reason Start Date Expiration Date Visits Re quested Visits Authorized [id number] 1 1 Encounter Details Date Type Department Care Team (Late st Contact Info) Description 10/08/2022 2:59 PM EDT Anesthesia Event [place] [phone] Leny Saab MD [facility] ANESTHESIOLOGY DEPT [place], [place] [id number] Nilson Coto MD [facility] [place] [address] Anesthesia Record Procedure Summary Procedure Name Responsible Anesthesiologist Anesthesia Start Time Anesthesia Stop Time @LAPAROSCOPY, SURG/GASTRIC RESTRICTIVE PROC, LONGITUDINAL GASTRECTOMY (WRVU 20.38) (Abdomen) Leny Saab MD 10/08/22 1459 10/08/22 1724 Events Date Time Event Comment 10/08/2022 1410 1459 AN Verify 1459 Start 1459 An Start Data 1504 An Induction 1506 An Intubation 1510 Anesthesia Ready 1521 Break/Relief In I assumed ca re for Break Relief before which we: 1. Identified the patient 2. Identified the responsible provider(s) 3. Reviewed the pertinent medical history 4. Discussed the surgical plan and course 5. Reviewed intra-op anesthesia management and issues during anesthesia 6. Set expectations for the relief (and/or post-procedure) period 7. Allowed opportunity for questions and acknowledgement of understanding Nilson Coto MD 1530 Procedure Start 1544 Handoff Intra-procedure anesthesia care was transferred after review of the patient's history, current anesthetic/surgical status and procedural plan, anticipated issues and expected post-operative course (including disposition.) Leny Saab MD 1702 Extubation/LMA Out 1707 Quick Note Waiting for pac u 1718 an stop data 1724 Recovery or ICU Handoff Millie ent care was transferred to the destination unit staff after review of the patient's medical history, current anesthetic/surgical status and plan, according to the Provider Handoff Checklist. 1724 Stop Meds Name Total Midazolam 2 mg fentaNYL 100 mcg IV Lidocaine 100 mg Propofol 150 mg Propofol INF 501.9 mg HYDROmorphone 2 mg/mL 1 mg Rocuronium 70 mg ePHEDrine 10 mg Ondansetron 4 mg Dexamethasone 4 mg ceFAZolin (Ancef) 3 g vial a ttach to sodium chloride 0.9% 100 mL Mini-Bag Plus 0 g Sugammadex 200 mg lactated ringers infusion 1,600 mL * Agents Name O2 * Blood No blood administrations on file. Lines, Drains, and Airways Type Details Placement Removal (RETIRED) Peripheral IV Line - Single Lumen 10/08/22; 1439; cephalic vein (lateral side of arm), right; [id number] catheter system; Anatomical Landmarks; 20 gauge; removed inadvertently; 10/08/22; 190210/08/22 1439 by Nilson Coto MD 10/08/22 190 by Chey Ohara RN ETT Mask Ventilation: Adjunct (2); ETT Type: Cuffed; ETT Size: 7 mm; Mac Blade: 4; Notes: Asleep, Pre-O2; Attempts: 1; Laryngoscopy Grade: 1; ETT Placement Verified By: Capnometry, Visual, Auscultation; Secured at Teeth: 21 cm; Inserted by: Nilson Coto MD; Removal Date: 10/08/22; Removal Time: 17010/08/22 1506 by Nilson Coto MD 10/08/22 1702 by Devon Reddy CRNA Incision 10/08/22; 1531; abdomen; laparoscopic punctures (specify) (Multiple Trocar Sites.); 02/23/24; 0828 10/08/22 1531 by Meredith Gupta RN 02/23/24 0828 by Glo Wright RN documented in this encounter Social History [...] OR Notes * Anesthesia Postprocedure Evaluation - Leny Saab MD - 10/08/2022 6:21 PM EDT Department of Anesthesiology Post-procedure Note Patient: Liss Mosley Procedure Summary Date: 10/08/22 Room / Location: [facility] OR [address] [place] [address] MAIN OR Anesthesia Start: 1459 Anesthesia Stop: 1724 Procedures: @LAPAROSCOPY, SURG/GASTRIC RESTRICTIVE PROC, LONGITUDINAL GASTRECTOMY (WRVU 20.38) (Abdomen) EGD, UPPER GI ENDOSCOPY (WRVU 2.09) Diagnosis: (Obesity) Surgeons: Annabella Borrero MD Responsible Provider: Leny Saab MD Anesthesia Type: general ASA Status: 3 All Anesthesia Providers: Anesthesiologist: Maite Ivan MD; Leny Saab MD GUEST SERVICES ASSOCIATE: Devon Reddy CRNA Manager Emergency Department: Nilson Coto MD Vitals Value Taken Time BP 138/76 10/08/22 1815 Temp 35.7 ??C (96.3 ??F) 10/08/22 1720 Pulse 74 10/08/22 1821 Resp 15 10/08/22 1821 SpO2 92 % 10/08/22 1821 Pain Level 0 10/08/22 1720 Vitals shown include unvalidated device data. Patient Location: PACU/[facility] Level of Consciousness: Awake and Alert Pain Management: Satisfactory Analgesia PONV: None Cardiovascular Status: At Baseline and Hemodynamically Stable Respiratory Status: At Baseline and Room Air Postoperative Fluid Status: Intravascular EUvolemia Possible Anesthetic Complications: NONE apparent at time of evaluation Final Primary Anesthesia Type: General (The anesthetic type performed was the same as planned.) Comments: Leny Saab MD * Anesthesia Preprocedure Evaluation - Maite Ivan MD - 10/07/2022 4:30 PM EDT Pre-Anesthesia Evaluation for: Liss Mosley a 57 y.o. female. Procedure(s): @LAPAROSCOPY, SURG/GASTRIC RESTRICTIVE PROC, LONGITUDINAL GASTRECTOMY (WRVU 20.38) EGD, UPPER GI ENDOSCOPY (WRVU 2.09) Patient Active Problem List Diagnosis Date Noted ??? H/O section 08/13/2022 ??? Alcohol abuse 08/13/2022 ??? Allergic condition 08/13/2022 ??? Major depressive disorder 08/13/2022 ??? Dermatochalasis of right lower eyelid 08/13/2022 ??? Dermatochalasis of left lower eyelid 08/13/2022 ??? 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 Essential hypertension 08/13/2022 ??? Excessive consumption of ethanol 08/13/2022 ??? Gastritis 08/13/2022 ??? H/O cardiac murmur 08/13/2022 ??? Headache 08/13/2022 ??? Other general symptoms and signs 08/13/2022 ??? Perimenopause 08/13/2022 ??? Rosacea 08/13/2022 ??? Skin rash 08/13/2022 ??? Class 3 severe obesity with body mass index (BMI) of 45.0 to 49.9 in adult 07/25/2021 ??? Insulin resistance 07/25/2021 ??? 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 TESSA (obstructive sleep apnea) 04/13/2021 ??? OA (osteoarthritis) 04/13/2021 ??? Primary osteoarthritis of both knees 11/13/2017 ??? Depression 11/08/2015 ??? Right knee pain 11/08/2015 ??? Hypothyroidism 10/13/2012 ??? Fracture of pelvis 02/28/1996 Past Medical History: Diagnosis Date ??? Allergic rhinitis Past Surgical History: Procedure Laterality Date ??? SECTION 1988 Social History Tobacco Use ??? Smoking status: Former ??? Smokeless tobacco: Never ??? Tobacco comments: quit 1990 Substance Use Topics ??? Alcohol use: Yes Comment: <1 per day Social History Substance and Sexual Activity Drug Use Not Currently Allergies Allergen Reactions ??? Adhesive Tape CIS - Localized Reaction ??? Citalopram Other (See Comments) Other reaction(s): FATIGUE ??? Ketorolac Other (See Comments) ??? Mold Rash ??? Adhesive Rash Other reaction(s): SKIN RASH Medications: MAR and/or home medications have been reviewed. Physical Exam: Preprocedure Vitals Current as of 10/07/22 1630 No BP, pulse, respiration, SpO2, or temperature recorded. Height: 165.1 cm (5' 5) (08/19/22) Weight: 124.5 kg (274 lb 8 oz) (08/19/22) BMI: 45.67 IBW: 57 kg (125 lb 10.6 oz) Airway Assessment: Mallampati: II TM distance: >3 FB Neck ROM: full Cardiovascular Assessment: system normal Pulmonary Assessment: pulmonary exam normal Dental Assessment: - normal exam Misc Assessment: IV access: Peripheral line Last Filed Perioperative Cognitive Screening None Anesthesia Plan: ASA 3 general, with a(n) intravenous induction 57yr old female presenting for laparoscopic longitudinal gastrectomy and upper GI endoscopy. PMH significant for class III obesity, TESSA, NIDDM, alcohol abuse, and HTN. No significant cardiopulmonary studies on file. Pt denies any CP, SOB, GERD. 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 METS>4. Some lower extremity weakness with gait disability (have to be careful, can be clumsy) No prior anesthetic records on file. Will plan for GA with ETT. Will; consider CMAC given body habitus. Region - Other Informed Consent: Anesthetic plan and risks discussed with patient and mother. Plan discussed with resident. Anesthesia Screening documented in this encounter Plan of Treatment Upcoming Encounters Date Type Department Care Team (Late st Contact Info) Description 04/13/2024 3:20 PM EST Office Visit Dermatology at [place] [address] [place] [address] Felicitas Llanes MD [facility] [address] [place] [address] 04/26/2024 4:00 PM EST Office Visit Nephrology [place] [address] Denia Xiao APRN [facility] [place] [address] documented as of this encounter Goals Goal Patient Goal Type Associated Problems Recent Progress Patient-Stated? Author movement Exercise Arsh Hicks Note: Try cardio chair exercises. Health Research Study Assistant will send links to videos. Self monitoring [...] the pause (STOP, and urge surfing. Health Research Study Assistant will mail hand-outs. documented as of this encounter Visit Diagnoses Not on filedocumented in this encounter Administered Medications Inactive Administered Medications - up to 3 most recent administrations Medication Order MAR Action Action Date Dose Rate Site dexAMETHasone (Decadron) injection Intravenous, PRN, Starting on Fri10/08/22 at 1544, Until Fri10/08/22 at 1724, Anesthesia Intra-op, Routine Given 10/08/2022 3:44 PM EDT 4 mg ePHEDrine sulfate (5 mg/mL) multi-dose injection Intravenous, PRN, Starting on Fri10/08/22 at 1558, Until Fri10/08/22 at 1724, Anesthesia Intra-op, Routine Given 10/08/2022 3:58 PM EDT 5 mg Given 10/08/2022 3:54 PM EDT 5 mg fentaNYL (pf) (50 mcg/mL) multi-dose injection Intravenous, PRN, Starting on Fri10/08/22 at 1504, Until Fri10/08/22 at 1724, Anesthesia Intra-op, Routine Given 10/08/2022 3:04 PM EDT 100 mcg HYDROmorphone (Dilaudid) (2 mg/mL) multi-dose injection solution Intravenous, PRN, Starting on Fri10/08/22 at 1536, Until Fri10/08/22 at 1724, Anesthesia Intra-op, Routine Given 10/08/2022 4:35 PM EDT 0.6 mg Given 10/08/2022 3:36 PM EDT 0.4 mg lactated ringers infusion 1,000 mL, at 100 mL/hr, Intravenous, CONTINUOUS, Starting on Fri10/08/22 at 1345, Until Fri10/08/22 at 1934, Day of Surgery (Day of Procedure) New Bag 10/08/2022 4:15 PM EDT New Bag 10/08/2022 2:59 PM EDT lidocaine (pf) (Xylocaine) (20 mg/mL) 2% injection syringe Intravenous, PRN, Starting on Fri10/08/22 at 1504, Until Fri10/08/22 at 1724, Anesthesia Intra-op, Routine Given 10/08/2022 3:04 PM EDT 100 mg midazolam (pf) (Versed) (1 mg/mL) multi-dose injection Intravenous, PRN, Starting on Fri10/08/22 at 1456, Until Fri10/08/22 at 1724, Anesthesia Intra-op, Routine Given 10/08/2022 2:56 PM EDT 2 mg ondansetron (pf) (Zofran) (2 mg/mL) injection Intravenous, PRN, Starting on Fri10/08/22 at 1657, Until Fri10/08/22 at 1724, Anesthesia Intra-op, Routine Given 10/08/2022 4:57 PM EDT 4 mg propofoL (Diprivan) (10 mg/mL) infusion Intravenous, CONTINUOUS PRN, Starting on Fri10/08/22 at 1524, Until Fri10/08/22 at 1724, Anesthesia Intra-op, Routine New Bag 10/08/2022 3:24 PM EDT 30 mcg/kg/min 21.51 mL/hr New Bag 10/08/2022 3:04 PM EDT 30 mcg/kg/min 21.51 mL/h r propofoL (Diprivan) 10 mg/mL bolus injection (Anesthesia) Intravenous, PRN, Starting on Fri10/08/22 at 1504, Until Fri10/08/22 at 1724, Anesthesia Intra-op Given 10/08/2022 3:04 PM EDT 150 mg rocuronium (Zemuron) (10 mg/mL) multi-dose injection Intravenous, PRN, Starting on Fri10/08/22 at 1504, Until Fri10/08/22 at 1724, Anesthesia Intra-op, Routine Given 10/08/2022 4:14 PM EDT 20 mg Given 10/08/2022 3:04 PM EDT 50 mg sugammadex (Bridion) 100 mg/mL injection Intravenous, PRN, Starting on Fri10/08/22 at 1642, Until Fri10/08/22 at 1724, Anesthesia Intra-op, Routine Given 10/08/2022 4:42 PM EDT 200 mg documented in this encounter Care Teams Manager Of Application Development Relationship Specialty Start Date End Date Barbara, Susan Mobley APRN PCP - General Internal Medicine 10/03/22 09/14/23 documented as of this encounter
--- OUTSIDE RECORDS SUMMARY | 2024-03-20 11:52 | XMS_ITS | Encounter Summary ---
Author Organization [facility] Address [facility] [place] [address] Care Team Providers Care Mcat Instructor Name Role Phone Carolyn Christianson APRN Primary Care Provider [phone] Encounter Details Date Type Department Care Team (Late st Contact Info) Description 08/19/2022 1:00 PM EDT Office [place] [address] Annabella Galicia MD [facility] [place] [address] Mellisa Rowland APRN [facility] [address] Pre-op evaluation; Obesity, unspecified classification, unspecified obesity type, unspecified whether serious comorbidity [...] Sign Reading Time Taken Comments Blood Pressure 141/64 08/19/2022 1:00 PM EDT Pulse 75 08/19/2022 1:00 PM EDT Temperature - - Respiratory Rate 18 08/19/2022 1:00 PM EDT Oxygen Saturation 100% 08/19/2022 1:00 PM EDT Inhaled Oxygen Concentration - - Weight 124.5 kg (274 lb 8 oz) 08/19/2022 1:00 PM EDT Height 165.1 cm (5' 5) 08/19/2022 1:00 PM EDT Body Mass Index 45.68 08/19/2022 1:00 PM EDT documented in this encounter Progress Notes * Mellisa Rowland APRN - 08/19/2022 1:00 PM EDT Images from the original note were not included. [employer] Bariatric Surgery Evaluation Reason for consultation: Liss is a 57 y.o. female referred by Carolyn Christianson APRN for consultation for consideration of surgical treatment of obesity. Her preferred procedure: sleeve gastrectomy due to less malabsorption and doesn't like the idea of rerouting. Prior bariatric surgery evaluations: None. BARIATRIC SURGERY PROGRAM PATHWAY Review of progress with the requirements of the Bariatric Surgery Program: 1. Education: She [x] has [] Has not attended a Introduction to the [facility] Bariatric Surgery Programseminar, a comprehensive two hour meeting that provides a program overview, education on bariatric surgeries offered at [facility], risks and benefits, as well as patient expectations and follow up. [facility] Bariatric Surgery Program Educational seminars viewed 2. Bariatric Surgery Program evaluations with RD: Completed today. Program start weight: (12/20/21) 281 lbs BMI: 46.8 WT at visit #1: Wt & BMI By Encounter Date Flowsheet Row Office Visit from 08/19/2022 in General Surgery at [facility] TH Visit (TeleHealth) from 06/19/2022 in Weight and Wellness at [facility] Weight 124.5 kg (274 lb 8 oz) 1 08/19/2022 1300 124.7 kg (275 lb) [self report] 1 06/19/2022 1347 BMI 45.67 1 08/19/2022 1300 -- 3. Gallbladder status: [x] intact, not studied. [] S/P cholecystectomy 4. VTE risk assessment: extended VTE prophylaxis [x] is [] is not indicated post bariatric surgery discharge 5. Next steps in pathway: Additional testing/ consultations as determined as needed to be determined at today's visit. 8. HOSPITAL DISCHARGE NEEDS: [x] Ursodiol [x] PPI [x] Lovenox History of present illness: Liss states that she has struggled with obesity for many years. The patient has tried multiple weight loss measures without sustainable success. Factors that she identifies as contributing to her obesity include: hypothyroid, pregnancies, genetics, overconsumption and inactivity. She seeks bariatric surgery for health reasons. Other motivating factors for seeking surgery for bariatric surgery: harder to get the weight off with aging. Her goals of surgery: to be able to walk more during her vacations in [place]. She denies binge eating, night eating disorder, self-induced vomiting, laxative or diuretic use or excessive exercise to lose weight. Patient Active Problem List Diagnosis ??? H/O section ??? Alcohol abuse ??? Allergic condition ??? Major depressive disorder ??? Dermatochalasis of right lower eyelid ??? Dermatochalasis of left lower eyelid ??? 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 Essential hypertension ??? Excessive consumption of ethanol ??? Gastritis ??? H/O cardiac murmur ??? Headache ??? Other general symptoms and signs ??? Perimenopause ??? Rosacea ??? Skin rash ??? Class 3 severe obesity with body mass index (BMI) of 45.0 to 49.9 in adult ??? Insulin resistance ??? Ning's disease ??? TESSA (obstructive sleep apnea) ??? OA (osteoarthritis) ??? Primary osteoarthritis of both knees ??? Depression ??? Right knee pain ??? Hypothyroidism ??? Fracture of pelvis Pre-Bariatric Surgery Obesity related medical issues: Problem Baseline issue if checked Comments Diabetes/prediabetes/insulin resistance [] Taking Metformin for weight loss Metabolic syndrome or PCOS [] HTN [x] Taking Lisinopril GERD [] During only Hyperlipidemia [] TESSA [x] Using CPAP with 100% compliance Musculoskeletal issues [x] OA knees, s/p R TKR, back pain Liver Disease [] Other [] Functional status: Is ambulation limited most or all of the time? no Tolerance: she can walk a mile and climb a flight of stairs ADLs: able to carry on without difficulty- [x] independent [] partially dependent [] totally dependent [] Unknown Lactose/ Food/ Wheat/ Latex allergy/sensitivity: unsure. (Has diarrhea, now much less often since changing her . 2-3 x/month has a day of non-bloody soft/watery stool (about 5 episodes). UTD on colo.) NSAID use: has stopped ibuprofen. Using Tylenol PRN for aches and pains. control plan: postmenopausal. MBSAQIP Preoperative Risk Assessment (negative if left blank): General [] Current smoker within 1 year Pulmonary [] COPD (Severe) [] History of pulmonary embolism Cardiac [] History of myocardial infarction [] Previous PCI/PTCA [] Previous cardiac surgery Vascular [] Vein thrombosis requiring therapy [] Venous stasis [] IVC filter IVC filter timing [] placed in anticipation of procedure [] IVC filter preexisting [] Unknown Renal [] Currently requiring or on dialysis [] Renal insufficiency Nutritional/Immune/Oncologyy/Other [] Steroid/Immunosuppressant use for chronic condition [] Therapeutic anticoagulation [] Previous obesity surgery/foregut surgery Past Surgical History: Procedure Laterality Date ??? SECTION 1988 Current Outpatient Medications: ??? ipratropium (ATROVENT) 42 mcg (0.06 %) Sabinal, Non-Aerosol, INSTILL 2 SPRAYS INTO EACH NOSTRIL THREE TIMES A DAY FOR 7 DAYS, Disp: , Rfl: ??? metFORMIN XR (Glucophage XR) 500 mg ER 24 hr tablet, Take 4 tablets by mouth daily. 4 po qdinner, Disp: 360 tablet, Rfl: 1 ??? Ginkgo Biloba 40 mg Tablet, Take by mouth 2 times daily., Disp: , Rfl: ??? lisinopriL (Zestril) 10 mg Tablet, Take 10 mg by mouth daily., Disp: , Rfl: ??? Echinacea Purpurea Extract (Echinacea) 125 mg Tablet, echinacea, Disp: , Rfl: ??? lactobacillus rhamnosus, GG, (CULTURELLE) 10 billion cell Capsule, Take 1 capsule by mouth daily., Disp: , Rfl: ??? Biotin 1 mg Tablet, Take by mouth., Disp: , Rfl: ??? [place]-3 Fatty Acids 100 mg Tablet, Chewable, Daily, Disp: , Rfl: ??? montelukast (Singulair) 10 mg Tablet, Take 10 mg by mouth nightly., Disp: , Rfl: ??? levothyroxine (Synthroid) 150 mcg Tablet, Take 150 mcg by mouth daily., Disp: , Rfl: ??? levocetirizine (XYZAL) 5 mg Tablet, Take 1 tablet by mouth daily., Disp: 90 tablet, Rfl: 3 ??? sertraline (Zoloft) 50 mg Tablet, 50 mg daily., Disp: , Rfl: ??? sulfacetamide (KLARON) 10 % Suspension, Apply topically to face 1-2 times daily for rosacea, Disp: 118 mL, Rfl: 3 ??? albuteroL 90 mcg/actuation HFA Aerosol Inhaler, INHALE TWO PUFFS BY MOUTH EVERY 6 HOURS NEEDED FOR SHORTNESS OF BREATH OR WHEEZING, Disp: , Rfl: ??? Minoxidil 5 % Foam, , Disp: , Rfl: Allergies Allergen Reactions ??? Adhesive Tape CIS - Localized Reaction ??? Citalopram Other (See Comments) Other reaction(s): FATIGUE ??? Ketorolac Other (See Comments) ??? Mold Rash ??? Adhesive Rash Other reaction(s): SKIN RASH Family History Problem Relation Age of Onset ??? Asthma Mother ??? Allergic Rhinitis Mother ??? Allergic Rhinitis Father ??? Asthma Sister ??? Allergic Rhinitis Sister ??? Allergic Rhinitis Brother Social History Socioeconomic History ??? Marital status: Spouse name: Not on file ??? Number of children: Not on file ??? Years of education: Not on file ??? Highest education level: Not on file Occupational History ??? Not on file Tobacco Use ??? Smoking status: Former ??? Smokeless tobacco: Never ??? Tobacco comments: quit 1990 Vaping Use ??? Vaping Use: Never used Substance and Sexual Activity ??? Alcohol use: Yes Comment: <1 per day ??? Drug use: Not Currently ??? Sexual activity: Not on file Other Topics Concern ??? 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 Diagnostic screenin. Lab data: Sending to the lab today. 2. Psychological evaluation done by Apolonia Lowry, PhD, [facility] Weight and Wellness : no contraindication to bariatric surgery from a psychological perspective. 08/12/2022 1:15 PM [facility] Initial Responses URICA - Readiness Score 9 (Contemplation State) WEL-SF Total Scores 35 PHQ-2 SubScore 0 (Brief screen negative) GAD2 Subscore 1 (Brief screen negative) PROMIS 10 Physical Scores 39.8 PROMIS 10 Mental Scores 41.1 Total REAP-S Scores 31 TFEQ - Uncontrolled Eating (UE) 51.85 TFEQ-Cognitive Restraint (CR) 55.56 TFEQ-Emotional Eating 55.56 Food Insecurity Score 2 [place] Category I Result 1 (Negative) [place] Category II Result 0 (Negative) [place] Category III 1 (Positive) [place] Sleep Apnea Total 2 (High Risk) Schooling Graduated from college Importance of making a change 9 Confidence to make change 7 Most weighed 312 Age most weighed 2021 Times lost 10 lbs or more 6 to 10 Lost weight how? Ate less food Switched to food with less calories Ate less fat Exercised Skipped meals Ate diet foods or products Drank a lot of water Ate more fruits, vegetables, salads Changed eating habits (didn't eat late at night, ate several small meals a day) Ate less junk food or fast food Joined a weight loss program (ex: Weight Watchers, JOSE Cummins, or Overeaters Anonymous) Followed a special diet (ex: Dr. Bingham, [place],Donna, Nutrisystem) Worried food would run out before we got money to buy more Never true Food didn't last; no money to get more Never true DPRP Score: 5 Bariatric Surgery VTE Risk Assessment Score Patients will be considered to be at high risk if they have one or more of the following: [] Previous VTE or BMI >/= 60 kg/m2 Or two or more of the following: [x] Age > 50 [] BMI >/= 50 kg/m2 [] Male sex [] Recent tobacco use [x] Obstructive sleep apnea [x] Venous insufficiency/ varicose veins (s/p stripping) [] OCP or HRT within 30 days of surgery Total: extended VTE prophylaxis [x] is [] is not indicated post bariatric surgery discharge Patients are advised to stop HRT and OCP/ DMPA 1 month prior to surgery and hold for 1 month postop, and use control during this time if appropriate. All patients who take coumadin/ anti-10Ainhibitors preoperatively are referred to the Thrombosis Clinic for recommendations. Review of Systems (negative if left blank): GI: [] dysphagia [] early satiety [] abdominal pain [] hernia [] prior CT scan abdomen [] nausea/vomiting [] blood in stool [x] diarrhea (2-3 x/month) [] constipation [] IBD [] postprandial RUQ pain Neurologic: [] dizziness [] chronic headaches Cardiovascular: [] history of chest pain, squeezing, pressure [] syncope [] murmur [] palpitations Respiratory: [x] shortness of breath (w/heavy exertion) [] wheezing : [] hematuria [] history of renal calculi Musculoskeletal [x] Myalgia/arthralgias: knee pain, back pain Extremities: [x] varicose veins [] edema Skin: [] skinfold rashes [] chronic wounds Endocrine: [] PCOS [x] thyroid disease (taking levothyroxine) Heme/Lymph: [] excessive bruising [] lymphadenopathy [x] iron deficiency history Allergic/ Immun: [] use of steroid/ immunosuppressant for chronic condition Psychiatric [x] depression (taking Sertraline with good effect, no current therapy) [] anxiety/panic attacks [] history of suicide attempt [] addiction [] psychiatric or rehab admissions Physical exam: Vital signs: Patient Vitals for the past 24 hrs: Pulse Resp BP SpO2 08/19/22 1300 75 18 141/64 100 % Body mass index is 45.68 kg/m??. Neuro: Non-focal. Psych: Pleasant, conversant, normal affect, cognition and mood. Behavior:[] defensive [] hostile [] expressive [] quiet [] monopolizing [] argumentative [x] insightful [] insightless[] fidgety [x] motivated [] apathetic [] preoccupied [] negativistic [] disruptive [x] attentive Mood: [x] stable [] labile [] depressed [] happy [] anxious [] hypomanic [] intense [] angry [] worrisome [] flat [] detached [] fearful [] sad ENT: Neck supple with normal ROM, no adenopathy or thyromegaly. Lungs: CTA bilaterally without wheezing. Heart: RRR, no murmur appreciated. Abdomen: Obese, soft, non- tender. Prior incisions: Well healed Pfannenstiel incision consistent with .. Hernias: None. Extremities: no lower extremity edema. Skin: No areas of skin breakdown. Obesity distribution: [x] Central [] Gyneoid Assessment/ Plan: 57 y.o. female with severe obesity with obesity-related comorbidities including hypertension, obstructive sleep apnea, osteoarthritis, and mild functional limitations/ mild impairment of well being. She has had failure to sustain weight loss by medical management and meets the criteria proposed bythe NIH Consensus Guidelines for surgical treatment of severe obesity and the AACE, TOS, ASMBS Clinical Practice Guidelines for the Perioperative Nutritional, Metabolic and Non-surgical Support of the Bariatric Surgery Patient. She is aware that there are non-surgical methods to achieve weight loss. After review of her medical record, history and physical exam, I find her to be a good candidate for bariatric surgery. She is interested in a sleeve gastrectomy . We discussed the procedures of laparoscopic sleeve gastrectomy and laparoscopic marok en y gastric bypass. The patient would like to proceed with a laparoscopic sleeve gastrectomy. We discussed the benefits of surgery as well as the small but real risks including but not limited to need for open surgery, bleeding, infection, staple line leak, DVT and pulmonary embolis, stricture, postoperative reflux and . We discussed the possibility of poor weight loss and the need to make sustained dietary changes in order for the surgery to be successful. We reviewed the risk of GERD after sleeve gastrectomy. Patient understands the need for life long follow up with the bariatric surgery program. Patient understands the importance of the preoperative diet in terms of safety and ability to perform the procedure. Consent was signed today. She has had an opportunity to have all her questions answered and is in agreement with the plan of care. She was encouraged to call with any questions or concerns. Pending: ??? Preoperative Group Class ??? CBC and CMP within 6 months of surgery, per MBSAQIP accredited bariatric center guidelines. (Sent to lab today). ??? Ongoing weight loss encouraged This was a 60 minute visit spent with patient discussing bariatric surgery readiness, risks and benefits. Additional time was spent reviewing previous notes and labs, in care coordination, ordering labs & completing documentation. Mellisa Rowland APRN * Barbara Mai, RD - 08/19/2022 1:00 PM EDT Bariatric Surgery Program Initial Nutrition Assessment Liss Mosley is a 57 y.o. female being seen today for a preoperative evaluation in anticipation of bariatric-metabolic surgery. SUBJECTIVE: Interest in bariatric surgery: Pt states she has struggled with weight loss for several years. Pt is interested in surgery to improver her mobility, be more active. 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 Lives with dog, Latisha, 6 yo rescue. Has 2 children, 4 grandchildren. Social support: Coworkers, family, children live and work close by, mother. Hobbies: enjoys cooking, learning to brenda, going to concerts Medical Hx: Class III obesity, Depression, OA, TESSA and Thyroid dz??(Ning's thyroiditis), elevated BP without dx. Overweight/obese since age: Pt states she was thin until puberty, weight gain through HS. Pt reports gradual weight gain over the years and diet attempts with up to 90# weight loss but never maintaining weight loss. Highest weight: 312 at age 55 Lowest weight: 150s in 20s Dieting History: Type of Diet Wt Lost (lbs.) Wt. Regain (lbs.) Dates Duration Comments Diet counseling with [facility] 45 25 2020 1 yr+ On my own- portion, low-fat 40 40+ 1982 1 yr Weight watchers 50 50+ 1988 9 mo Weight watchers 90 100+ 2003 1 yr Weight watchers 50 50 2014 6 mo Eating clean 2018 3 mo Autoimmune diet 2019 3 mo History of medications to lose weight: +AOM w/ WWC, OTC: raspberry ketones several years ago History of disordered eating behaviors such as binge eating/self-induced vomiting/laxative abuse/night eating syndrome: denies History of excessive exercise to lose weight: denies Contributing Factors to Obesity: [x] Family history of obesity [x] Medications- anti-depressants [x] [] Hx Binge Eating / Eating disorder [] Large portion sizes [] Fast eater [x] Nighttime eating [] Emotional eating [x] Mindless eating [] Choosing high calorie foods [x] Preference for concentrated sweets [] Snacking [] Grazing [] Meal skipping [] Physical Inactivity Eating Triggers: [x] Emotions: During divorce [x] Boredom [] Stress [] Fatigue [x] Physical Hunger [] Eating on a Schedule [] Other: Food Allergies/Intolerances/Preference: [x] Gluten -? Gluten sensitivity [x] Lactose- ? Lactose sensitivity [] None Diarrhea/Constipation: +diarrhea, ? R/t metformin, never seen GI specialist Recent Changes in Dietary/Lifestyle Habits: [x] Smaller portions [] 3 meals per day [] Eating slower [] More fruits, vegetables, and whole grains [] Having protein at all meals, eating protein first [x] Decreasing carbohydrates [x] Lower calorie cooking methods (baking, broiling, grilling, etc.) [x] Nutrition Counseling with MD and RD [] No longer buying tempting foods from grocery store [x] Not drinking with meals, sipping fluids throughout the day [] Cutting out soda [] Cutting out concentrated sweets/ decreasing added sugar [] Increased physical activity Current Intake: Tracking Intake: yes, using [employer] rusty Who does meal planning, shopping and cooking at home? Pt Economic and/or time limitations: pt reports difficulty affording gym membership currently, hopes to join as heating bill will decrease in the summer Dental Concerns: none Reported intake: Breakfast Decaf coffee, Hard boiled eggs, rice chex cereal w/ milk Snack Lunch Salad w/ chicken Snack Supper Quesadilla w/ shredded chicken and cheese, salsa Snacks Almonds Beverages: 2 c decaf black coffee, water, decaf iced tea ETOH: 1x/wk, 1-2 drinks per occasion Tobacco: none Marijuana: 1-2x/year How often meals eaten away from home: 1x/wk, usu takeout Supplements/Vitamins: MVM Physical activity: stationary bike 1-2x/day, online strength and balance videos Psychological indications: Evaluations with Apolonia Lowry, PhD on 04/18/22, 05/26/22, and 07/16/22. No contraindications to surgery noted. Hx abuse - none; Hx Hospitalizations-none Vision at 2 years post-op: be at a weight where I feel comfortable walking up hill, keeping up withwhite hospitalldren, go sightseeing, enjoy more activities. Goal weight: under 200# Challenges/barriers to success: maintaining weight loss OBJECTIVE: Weight History: Pt has 5% wgt loss req. Date Weight (lbs) HT BMI Comments 2021 312# Highest Weight 12/20/21 281# 65 46.8 Initial program weight 08/19/22 274# 65 45.7 1st pre-op visit [facility] % Surgery 3 weeks post-op 4 months post-op [place] Body Weight (based on BMI of 25): 150 30-70% Excess Weight Loss: 237-184 ; 50% Excess Weight Loss: 212 SUMMARY: Liss Randolpheau has been referred for nutrition evaluation and diet instruction in anticipationof bariatric surgery. Previous conservative attempts at weight loss through dieting have been unsuccessful over the salvage determiner. Predicted weight loss with surgery is an estimated 30-70% of excess body weight. Discussed weight loss goals. Emphasized importance of nonscale victories and overall improvement in health. Advised ptthat bariatric surgery is a tool, not a solution; and ultimately, weight loss will be achieved through proper eating and exercise habits. She showed good understanding of the concepts discussed. Discussed need for tracking on pre-op diet, briefly discussed tracking options and pre-op diet. Advised pt to try protein drinks prior to surgery. PENDING INFORMATION: Per Dr. Galicia NUTRITION DIAGNOSIS: - Obesity related to history of physical inactivity and excessive energy intake as evidenced by BMIof 45.7. PLAN: 1) Patient to practice post-op GB diet recommendations prior to surgery to support post-op success and long-term weight loss: ??? Eat 3 meals daily, spaced about 4-6 hours apart. ??? Take your time when eating meals, at least 20-30 minutes per meal. ??? Avoid soda and limit caffeine consumption. Stop caffeine 2 weeks prior to surgery. ??? Sip 48-64 oz hydrating fluid daily between meals and avoid drinking with meals. ??? Use smaller plates/bowls/utensils for meals and eat smaller portions. ??? Plan meals 1 wk in advance and shop with a list. 2) Continue to keep a food journal particularly of frequently eaten food/meals. 3) Create a meal plan for the Stage 2 diet - goal is 60-80 grams protein per day. Have a few brandsof protein drinks you like. 4) Encouraged exercise as tolerated. 5) We reviewed the No Weight Gain Policy. 6) Patient to attend a pre-op educational class prior to surgery. Read Handbook before coming to the class. Information given to patient: 1. [facility] Bariatric Surgery Education Handbook, a 102 page document (revision June 2011) which contains extensive information regarding pre and post- operative nutrition guidelines including: preop diet, Diet stages I-IV, hydration recommendations, protein guidelines, dumping syndrome, food intoleranc es, vitamin and mineral supplementation as well as a list of books and online bariatric resources. * Annabella Galicia MD - 08/19/2022 1:00 PM EDT Attending addendum: I have seen and examined the patient jointly with Mellisa Bourgeois APRN. In brief, this is a 57 y.o. year old female with Body mass index is 45.68 kg/m??., presenting for evaluation prior to bariatric surgery. I agree with the events, physical exam findings and assessment/plan as outlined. Surgical history includes a via a pfannenstiel incision. Will plan to proceed with laparoscopic sleeve gastrectomy. She has had an opportunity to have all her questions answered and is in agreement with the plan of care. She was encouraged to call with any questions or concerns. Annabella Galicia MD documented in this encounter Miscellaneous Notes * Addendum Note - Annabella Galicia MD - 08/19/2022 1:00 PM EDTAddended by: ANNABELLA GALICIA on: 08/20/2022 07:08 AM Modules accepted: Orders documented in this encounter Plan of Treatment Upcoming Encounters Date Type Department Care Team (Late st Contact Info) Description 04/13/2024 3:20 PM EST Office Visit Dermatology at [place] [address] [place] [address] Felicitas Llanes MD [facility] [address] [place] [address] 04/26/2024 4:00 PM EST Office Visit [place] [address] Denia Xiao APRN [facility] [place] [address] documented as of this encounter Goals Goal Patient Goal Type Associated Problems Recent Progress Patient-Stated? Author movement Exercise No Arsh So Note: Try cardio chair exercises. Health Work Ticket Distributor will send links to videos. Self monitoring [...] the pause (STOP, and urge surfing. Health Work Ticket Distributor will mail hand-outs. documented as of this encounter Results * Vitamin D, 25-Hydroxy (08/19/2022 3:38 PM EDT) Vitamin D Total 25 OH 28 21 - 100 ng/mL [facility] Vit D Interp Insufficient [facility] Blood 08/19/2022 3:38 PM EDT 08/19/2022 3:45 PM EDT Narrative Resulting Agency Comment Spec In Lab Mellisa [place] NETWORK SUPPORT ADMINISTRATOR CHEMISTRY ORDERABL ES [facility] [place] [address] * Vitamin B12 (08/19/2022 3:38 PM EDT) Vitamin B12 477 232 - 1,245 pg/mL [facility] Blood 08/19/2022 3:38 PM EDT 08/19/2022 3:45 PM EDT Narrative Resulting Agency Comment Spec In Lab Mellisa E [place] NETWORK SUPPORT ADMINISTRATOR CHEMISTRY ORDERABL ES Performing Organization Address [facility] [[email or web address]] Co de Phone Number [facility] [place] [place] [address] * Vitamin B1, whole blood (08/19/2022 3:38 PM EDT) Vit B1 Lvl Wb (JULY) 139 70 - 180 nmol/L [facility] Comment: ADDITIONAL INFORMATION This test was developed and its performance characteristics determined by [facility] in a manner consistent with CLIA requirements. This test has not been cleared or approved by the U.S. Food and Drug Administration. Test Performed by: [facility] - [address] [address] Clerical Office Worker: Ganesh Henry M.D. Ph.D.; CLIA# [id number] Blood 08/19/2022 3:38 PM EDT 08/20/2022 10:05 AM EDT Narrative Resulting Agency Comment Spec In Lab Mellisa E Kashif NETWORK SUPPORT ADMINISTRATOR LAB SEND OUT ORDER LOLITA Performing Organization Address [facility] [[email or web address]] Co de Phone Number [facility] [place] [place] [address] * PTH (08/19/2022 3:38 PM EDT) Parathyroid Hormone 46 15 - 65 pg/mL [facility] Blood 08/19/2022 3:38 PM EDT 08/19/2022 3:45 PM EDT Narrative Resulting Agency Comment Spec In Lab Mellisa E [place] NETWORK SUPPORT ADMINISTRATOR CHEMISTRY ORDERABL ES Performing Organization Address [facility]/ZIP Co de Phone Number [facility] [place] [place] [address] * (ABNORMAL) Iron and TIBC (08/19/2022 3:38 PM EDT) Iron 36 30 - 150 mcg/dL [facility] TIBC 332 250 - 450 mcg/dL [facility] Iron Saturation 11(L) 20 - 50 % [facility] Blood 08/19/2022 3:38 PM EDT 08/19/2022 3:45 PM EDT Narrative Resulting Agency Comment Spec In Lab Mellisa E Kashif NETWORK SUPPORT ADMINISTRATOR CHEMISTRY ORDERABL ES [facility] [place] [place] [address] * (ABNORMAL) Hemogram (08/19/2022 3:38 PM EDT) White Blood Cell 8.5 4.0 - 9.5 x10(3)/mc L [facility] Red Blood Cell 4.21 4.00 - 5.21 x10(6)/mc L [facility] Hemoglobin 12.2 11.7 - 15.5 g/dL [facility] Hematocrit 39.6 35.7 - 45.8 % [facility] Mean Cell Volume 94.1 82.6 - 94.4 fL [facility] Mean Cell Hemoglobin 29.0 27.1 - 32.0 pg [facility] Mean Cell Hemoglobin Concentration 30.8(L) 31.7 - 35.0 g/dL [facility] Platelet 312 145 - 357 x10(3)/mc L [facility] RDW Standard Deviation 49.9(H) 37.0 - 46.0 fL [facility] RDW coefficient of variation 14.4(H) 11.5 - 14.1 % [facility] Mean Platelet Volume 9.3 7.6 - 12.9 fL [facility] NRBC% auto 0.0 % [facility] NRBC Absolute 0.000 0.000 - 0.000 x10(3)/mc L [facility] Blood 08/19/2022 3:38 PM EDT 08/19/2022 3:45 PM EDT Narrative Resulting Agency Comment Spec In Lab Mellisa E Kashif NETWORK SUPPORT ADMINISTRATOR HEMATOLOGY ORDERAB LES [facility] [place] [address] * Folate, serum (08/19/2022 3:38 PM EDT) Pathologist [facility] Folate 5.0 4.8 - 24.2 ng/mL [facility] Blood 08/19/2022 3:38 PM EDT 08/19/2022 3:45 PM EDT Narrative Resulting Agency Comment Spec In Lab Mellisa E Kashif NETWORK SUPPORT ADMINISTRATOR CHEMISTRY ORDERABL ES Performing Organization Address [facility] [[email or web address]] Co de Phone Number [facility] [place] [address] * Ferritin (08/19/2022 3:38 PM EDT) [facility] Ferritin 136 30 - 400 ng/mL [facility] Comment: Pediatric reference ranges not verified at [facility], interpret with caution. Reference ranges for females greater than 50 years of age approach values for men, i.e., 30-400 ng/mL. Blood 08/19/2022 3:38 PM EDT 08/19/2022 3:45 PM EDT Narrative Resulting Agency Comment Spec In Lab Mellisa E Kashif NETWORK SUPPORT ADMINISTRATOR CHEMISTRY ORDERABL ES Performing Organization Address [facility] [[email or web address]] Co de Phone Number [facility] [place] [address] * (ABNORMAL) Comprehensive metabolic panel (non-fasting) (08/19/2022 3:38 PM EDT) Pathologist [facility] Glucose 76 65 - 199 mg/dL [facility] Comment:Diabetes: >=200 mg/d L plus symptoms Blood Urea Nitrogen 27(H) 8 - 18 mg/dL [facility] Creatinine 0.82 0.70 - 1.20 mg/dL [facility] Sodium 138 135 - 145 mmol/L [facility] Potassium 4.3 3.5 - 5.0 mmol/L [facility] Comment: Please note: ??Patients with WBC >100,000 may have falsely elevated Potassium levels. ??For accurate Potassium quantification in these patients send serum separator tube (gold top) for subsequent determinations. ??Contact the Clinical Chemistry Laboratory if there are any questions. Chloride 102 98 - 107 mmol/L [facility] Carbon Dioxide 25 22 - 31 mmol/L [facility] Anion Gap 11 5 - 15 mmol/L [facility] Calcium 9.7 8.5 - 10.5 mg/dL [facility] Protein, Total 7.7 6.1 - 8.0 g/dL [facility] Albumin 4.6 3.2 - 5.2 g/dL [facility] Aspartate Aminotransferase 14 0 - 30 unit/L [facility] Alanine Aminotransferase 16 0 - 30 unit/L [facility] Alkaline Phosphatase 65 35 - 105 unit/L [facility] Bilirubin, Total <0.2(L) 0.2 - 1.3 mg/dL [facility] Est Glomerular Filtration Rate 82 >=60 mL/min/1. 73 m?? [facility] Comment: This patient's estimated GFR [...] and symptoms in addition to eGFR. Blood 08/19/2022 3:38 PM EDT 08/19/2022 3:45 PM EDT Narrative Resulting Agency Comment Spec In Lab Mellisa E Kashif NETWORK SUPPORT ADMINISTRATOR CHEMISTRY ORDERABL ES [facility] [place] [address] documented in this encounter Visit Diagnoses Diagnosis Pre-op evaluation Preoperative examination, unspecified Obesity, unspecified classification, unspecified obesity type, unspecified whether serious comorbidity present documented in this encounter Care Teams Mcat Instructor Relationship Specialty Start Date End Date Carolyn Christianson APRN PCP - General Family Medicine 12/21/20 10/02/22 documented as of this encounter
--- OUTSIDE RECORDS SUMMARY | 2024-03-20 11:52 | XMS_ITS | Encounter Summary ---
Author Organization [facility] Address [facility] [place] [address] Care Team Providers Care Lcpc Name Role Phone Carolyn Christianson APRN Primary Care Provider [phone] Encounter Details Date Type Department Care Team (Late st Contact Info) Description 07/09/2022 [place]phone [place] [address] Apolonia Lowry, PhD [facility] [address] [place] [address] Social History Tobacco Use Types Packs/Day Years [...] encounter Miscellaneous Notes * Telephone Encounter - Apolonia Lowry, PhD - 07/09/2022 12:17 PM EDT Called Liss for their appointment after she didn't sign in to the virtual visit. No answer. Leftmessage to return call. documented in this encounter Plan of Treatment Upcoming Encounters Date Type Department Care Team (Late st Contact Info) Description 04/13/2024 3:20 PM EST Office Visit Dermatology at [facility] [address] [place] [phone] Felicitas Llanes MD [facility] [address] [place] [address] 04/26/2024 4:00 PM EST Office Visit [place] [address] Denia Xiao APRN [facility] [place] [address] documented as of this encounter Goals Goal Patient Goal Type Associated Problems Recent Progress Patient-Stated? Author movement Exercise No Arsh So Note: Try cardio chair exercises. Health Gasket Notcher will send links to videos. Self monitoring [...] the pause (STOP, and urge surfing. Health Gasket Notcher will mail hand-outs. documented as of this encounter Visit Diagnoses Not on filedocumented in this encounter Care Teams Lcpc Relationship Specialty Start Date End Date Carolyn Christianson APRN PCP - General Family Medicine 12/21/20 10/02/22 documented as of this encounter
--- OUTSIDE RECORDS SUMMARY | 2024-03-20 11:52 | XMS_ITS | Encounter Summary ---
[place] [address] Care Team Providers Care Apartment Maintenance Technician Name Role Phone Carolyn Christianson APRN Primary Care Provider [phone] Encounter Details Date Type Department Care Team (Late Contact Info) Description 08/30/2022 Telephone [place] [address] Tamara Knight Social History Tobacco Use Types [...] * Telephone Encounter - Tamara Knight - 08/30/2022 8:04 AM EDT Left another message for Libby regarding scheduling her bariatric surgery. I have called for the last 3 days and have been unsuccessful in reaching her. I will also send her another [facility] message andwill wait for her to reach out to us now. documented in this encounter Plan of Treatment Upcoming Encounters Date Type Department Care Team (Late Contact Info) Description 04/13/2024 3:20 PM EST Office Visit Dermatology at [facility] [address] [place] [address] Felicitas Llanes MD [facility] [address] [place] [address] 04/26/2024 4:00 PM EST Office Visit Nephrology Hypertension at [facility] [place] [phone] Denia Xiao APRN [facility] [place] [address] documented as of this encounter Goals Goal Patient Goal Type Associated Problems Recent Progress Patient-Stated? Author movement Exercise No Arsh So Note: Try cardio chair exercises. Health Family Centered Specialist will send links to videos. Self monitoring [...] the pause (STOP, and urge surfing. Health Family Centered Specialist will mail hand-outs. documented as of this encounter Visit Diagnoses Not on filedocumented in this encounter Care Teams Apartment Maintenance Technician Relationship Specialty Start Date End Date Carolyn Christianson APRN PCP - General Family Medicine 12/21/20 10/02/22 documented as of this encounter
--- OUTSIDE RECORDS SUMMARY | 2024-03-20 11:52 | XMS_ITS | Encounter Summary ---
Author Organization [facility] [place] [address] Care Team Providers Care Suction Drum Drier Operator Name Role Phone Carolyn Christianson APRN Primary Care Provider [phone] Encounter Details Date Type Department Care Team (Late st Contact Info) Description 08/29/2022 Telephone [place] [address] Tamara Knight Social History Tobacco Use Types [...] * Telephone Encounter - Tamara Knight - 08/29/2022 10:00 AM EDT Left message for Libby to call me back to go over a surgery date for bariatric documented in this encounter Plan of Treatment Upcoming Encounters Date Type Department Care Team (Late st Contact Info) Description 04/13/2024 3:20 PM EST Office Visit Dermatology at [facility] [address] [place] [phone] Felicitas Llanes MD [facility] [address] [place] [address] 04/26/2024 4:00 PM EST Office Visit [place] [address] Denia Xiao APRN [facility] [place] [address] documented as of this encounter Goals Goal Patient Goal Type Associated Problems Recent Progress Patient-Stated? Author movement Exercise No Arsh So Note: Try cardio chair exercises. Health Inclusion Special Education Teacher will send links to videos. Self [...] the pause (STOP, and urge surfing. Health Inclusion Special Education Teacher will mail hand-outs. documented as of this encounter Visit Diagnoses Not on filedocumented in this encounter Care Teams Suction Drum Drier Operator Relationship Specialty Start Date End Date Carolyn Christianson APRN PCP - General Family Medicine 12/21/20 10/02/22 documented as of this encounter
--- OUTSIDE RECORDS SUMMARY | 2024-03-20 11:52 | XMS_ITS | Encounter Summary ---
Author Organization [facility] Address [facility] [place] [address] Care Team Providers Care Area Intelligence Technician Name Role Phone Susan Jimenez APRN Primary Care Provider [phone]- [phone] Encounter Details Date Type Department Care Team (Latest Contact Info) Description 10/18/2022 Travel Social History Tobacco Use Types Packs/Day [...] 3:20 PM EST Office Visit Dermatology at [facility] [address] [place] [phone] Felicitas Llanes MD [facility] [address] [place] [address] 04/26/2024 4:00 PM EST Office Visit [place] [address] Denia Xiao [address]N [facility] [address] documented as of this encounter Goals Goal Patient Goal Type Associated Problems Recent Progress Patient-Stated? Author movement Exercise No Arsh So Note: Try cardio chair exercises. Health Timing Inspector will send links to videos. Self monitoring [...] the pause (STOP, and urge surfing. Health Timing Inspector will mail hand-outs. documented as of this encounter Visit Diagnoses Not on filedocumented in this encounter Care Teams Area Intelligence Technician Relationship Specialty Start Date End Date Barbara, Susan Mobley APRN PCP - General Internal Medicine 10/03/22 09/14/23 documented as of this encounter
--- OUTSIDE RECORDS SUMMARY | 2024-03-20 11:52 | XMS_ITS | Encounter Summary ---
Author Organization [facility] [place] [address] Care Team Providers Care Spooler Operator Automatic Name Role Phone Carolyn Christianson APRN Primary Care Provider [phone] [phone] Encounter Details Date Type Department Care Team (Latest Contact Info) Description 09/17/2022 Travel Social History Tobacco Use Types Packs/Day [...] 3:20 PM EST Office Visit Dermatology at [facility] [address] [place] [address] Felicitas Llanes MD [facility] [address] [place] [address] 04/26/2024 4:00 PM EST Office Visit [place] [address] Denia Xiao [address]N [facility] [place] [address] documented as of this encounter Goals Goal Patient Goal Type Associated Problems Recent Progress Patient-Stated? Author movement Exercise No Arsh So Note: Try cardio chair exercises. Health Coater Operator will send links to videos. Self [...] the pause (STOP, and urge surfing. Health Coater Operator will mail hand-outs. documented as of this encounter Visit Diagnoses Not on filedocumented in this encounter Care Teams Spooler Operator Automatic Relationship Specialty Start Date End Date Carolyn Christianson APRN PCP - General Family Medicine 12/21/20 10/02/22 documented as of this encounter
--- OUTSIDE RECORDS SUMMARY | 2024-03-20 11:52 | XMS_ITS | Encounter Summary ---
Author Organization [facility] [place] [address] Care Team Providers Care Box Car Checker Name Role Phone Susan Jimenez APRN Primary Care Provider [phone] Reason for Visit * Reason Comments Follow-up Encounter Details Date Type Department Care Team (Late st Contact Info) Description 02/03/2023 3:00 PM EST Office [place] [address] Mellisa Rowland MARKETING/SALES PERSON [facility] [place] [address] Barbara Mai, HILLARY S/P gastric sleeve procedure; Intertrigo; Disorder of iron metabolism Social History Tobacco Use Types Packs/Day Years Used Date Smoking Tobacco: Former Smokeless Tobacco: Never Comments:quit 1990 Alcohol Use Standard Drinks/Week Comments Yes 0 (1 standard drink = 0.6 oz pur e alcohol) <1 per day [facility] Inpatient Questions Answer Date Recorded Does [...] Sign Reading Time Taken Comments Blood Pressure 130/67 02/03/2023 2:21 PM EST Pulse 50 02/03/2023 2:21 PM EST Temperature 36.3 ??C (97.4 ??F) 02/03/2023 2:21 PM ES T Respiratory Rate 16 02/03/2023 2:21 PM EST Oxygen Saturation 100% 02/03/2023 2:21 PM EST Inhaled Oxygen Concentration - - Weight 105.2 kg (232 lb) 02/03/2023 2:21 PM EST Height 165.1 cm (5' 5) 02/03/2023 2:21 PM EST Body Mass Index 38.61 02/03/2023 2:21 PM EST documented in this encounter Patient Instructions * Patient Instructions* Mellisa Rowland APRN - 02/03/2023 3:00 PM EST BSP child support specialist Mayuri [phone] and Tamara [phone] Dietitians: [phone] Surgeons/ nurse practitioners: [phone] Nurse line: [phone] Dear Liss, Please see your electronic medical record note from today for details we discussed at your visit. Below is some additional general information that you may find helpful. Testing: It would be helpful if you can have your lab work drawn a couple days before your visit celine [facility] facility so the results are available at the time of your follow up visit. If you have labwork done by your primary daycare assistant before that date, please have a copy sent to the Bariatric Surgery Program. Please call/send my message if you have not heard from us within 2 weeks of having labs work done. Here's the link to [facility] Lab hours and locations: [email or web address] Next visit: Follow up visits are done at 4 months and 12 months after surgery and yearly thereafter. Some patients are evaluated on a more frequent basis. Please call [phone] if you do not receive an appointment by 3-4 weeks prior to the expected visit. Vitamins/Nutrition/Activity Recommendations: Please see your visit note for personalized recommendations General Vitamin recommendations: Multivitamins with minerals twice daily- needs [...] Blow dry area on low setting with balance and hairspring assembler. Avoid excessive heat and/or sweating as friction and moisture can exacerbate disease. Try OTC Dove clinical strength anti perspirant to affected areas nightly or an absorbent powder such as Gold Andujar and [...] control for women of child bearing age: is recommended for at least 18-24 months after surgery. f non-prescribed drugs and treet drugs is unsafe Anti-inflammatory medications such as Ibuprofen (Advil), Aleve (Naproxen), Excedrin, Simi-Brewer should be used sparingly after gastric bypass, since they increase the risk of ulcer and bleeding. A bone mineral density scan (DEXA) is recommended every 2 years after bariatric surgery. Please schedule this study through your primary care providers office. Hair Loss: is associated with rapid [...] be increased with higher than predicted weight loss Potential lifetime risks of sleeve gastrectomy include developed heartburn or severe reflux Call us: If you have concerns. If you have unexplained abdominal pain. if you see blood in your stool or vomit blood If you have prolonged vomiting Post Surgery Support Group: Our post surgery support group meets at [facility] on the first Friday of every month from 1:00 PM-2:00 PM. You can attend online or in person. Use the following link to attend online: [email or web address] Nutrition and Activity apps- Baritastic, My Fitness Pal, Lose It, My Plate Internet resources: www.SayHello LLC www.Actifio www.Vandas Group www.Global Protein Solutions.ApiFix/blog [facility] facebook page: [email or web address]://www.[email or web address].com/[facility] Books & Magazines: - Recipes for Life After Weight Loss Surgery by Saskia Dale - Shrink Yourself by Dr Robel Rodriguez - Eating Well - www.Batzu Media - Cooking Light- www.cookinglight.ApiFix Anxiety: The Happiness Trap by Duke Jenkins The Mindfulness and acceptance workbook for anxiety By Sandor Rosario. Mindful eating: What are you Hungry For? By Simon Holloway The Mindful Diet by Maryjane Wheatley and the [facility] group. Emotional eating: End Emotional Eating by Rhiannon Rivas Calming the Emotional Storm Soila Carrera documented in this encounter Progress Notes * Mellisa Rowland APRN - 02/03/2023 3:00 PM EST [place] [address] Reason for visit: Bariatric Surgery follow up visit Subjective: Liss Mosley is s/p sleeve gastrectomy with Dr. Borrero on 10/08/22, she presents today for 4 month post bariatric surgery follow up. Overall tolerating foods/fluids and trying to make sure she is meeting nutritional/fluid requirements (meeting goals). Pt reports no difficulty swallowing, epigastric pain, or bloating. No N/V. BM are tending toward constipation (at preop baseline). No longer taking PPI for ulcer prevent post surgery, denies GERD symptoms upon taper. Has stopped Ursodiol for gallstone prevention. No bariatric related concerns/complaints today. Liss reports she had an ED visit in November for dehydration. She has Current Supplements: Fusion 1 a day with 45 mg iron Calcium citrate chews twice daily Interim Health: Patient reports health has been stable overall. No bariatric related surgeries or hospitalizations. Notes ED visit in November for dehydration. No kidney stones or atraumatic fractures. Pt follows with PCP/specialist for disease management and age specific screening. 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 Neuro: no c/o paresthesias. Endorses changes in memory (similar to menopause changes). CV: no chest pain or palpitations. Pulm: denies SOB or cough. GI: as above. AUDIO VISUAL COLLECTIONS COORDINATOR: PLANT PACKER. Skin: Endorses redundant skin over abdomen/breasts, no skin fold rashes. Health Habits: Tobacco/Nicotine use: None. ETOH use: None. No NSAID use. Dietary history/ exericse/ activity level: See dietitian note from today's visit for complete dietary evaluation. Meds and Allergies reviewed. WT (lbs) BMI HT Highest wt Initial Pre-op visit 08/19/22 274 45.7 5'5 312 lbs 2020 (per patient) Post-op WT (lbs) BMI %EBW lost 10/25/22 253 42.2 17 02/03/23 232 38.6 34 Objective: BP 130/67 Pulse 50 Temp 36.3 ??C (97.4 ??F) Resp 16 Ht 165.1 cm (5' 5) Wt 105.2 kg (232 lb) SpO2 100% BMI 38.61 kg/m?? Physical Exam General: Alert, pleasant, NAD, appears well. Abdomen: Soft, non-distended, non-tender. Well healed incisions. Respiratory: No increased work of breathing. Speaking in full sentences. No cough/wheeze witnessed. Skin: Moderate excess skin noted over abdomen. Skin is warm and dry. No rash noted on exam today. Psychiatric: Normal mood and affect. Appropriate eye contact. No results found for this or any previous visit (from the past 72 hour(s)). Assessment 57 y.o. female 4 months s/p Sleeve gastrectomy with 34 % of excess body weight lost. Plan: S/p bariatric surgery: Doing well from a bariatric surgery perspective, overall pleased with surgical outcome. Discussed dietary considerations and strategies for continued success . Reviewed importance of meeting nutritional/protein/fluid requirements, tracking food/preplanning, meal prep, pairing carbs with protein andfollowing post bariatric eating behaviors. Recommended regular exercise. Patient has met with trailer rental clerk today, please see note for additional details/dietary evaluation. Refilled ursodiol. Advised that Ursodiol can be discontinued at 6 months post-operatively. Advised that hair loss due to rapid weight loss is typical for this early post- surgery time frame, will improve with time and adequate protein/calorie intake. Avoid ETOH until 6-12 months post-operatively, and then should be used in small amounts Excess skin/skin fold rashes caused by weight loss: Reviewed pt education re: skin care and treatment of skin fold rashes. Discussed OTCs including barrier creams and anti-friction products. F/u if recommended strategies fail to improve sx. Rx Nystatin, reviewed administration instructions. Constipation: Discussed importance of fiber, fluids and activity. Recommended trial of miralax 1/2 cap daily up to 2 caps daily. Recommend BM daily to every other day. Follow up if above strategies do not help. Obesity related co-morbidities Improved/stable overall. Risk for vitamin deficiencies: Reviewed recent lab results. Reviewed recommended vitamin/mineral supplements- continue as above. See RD note for additional details re: vitamin/mineral supplementation. Pt reminded that a bone mineral density scan (DEXA) is recommended every 2 years after bariatric surgery. RTC in 8 months for 1 year post bariatric surgery follow up visit, with labs. Call/rtc sooner prn with questions/concerns, unexplained abdominal pain, prolonged nausea, vomiting or inability to hydrate, questions or concerns. Bariatric Program Summary report is availabe for patient's review via e- I spent a total of 30 minutes associated with this encounter, including chart review, the patient encounter, and documentation. Mellisa Rowland APRN RECOMMENDED BARIATRIC SURGERY PROGRAM POSTOPERATIVE FOLLOW-UP: Follow up: done at 4, 12 and yearly thereafter. High risk patients are evaluated on a more frequentbasis. *Typical Supplement recommendations: Multivitamin with minerals twice a day, B12 500 mcg once a day, calcium citrate 600 mg/400 units vitamin D twice a day, iron (ferrous fumarate, carbonyl iron taken with vitamin C 250 mg once every other day) for menstruating females or those with Iron Deficiency. Labwork: Hemogram, ferritin, iron (transferrin) saturation, iron, folate, B1, B12, D (25 hydroxy only), Intact PTH and comprehensive metabolic profile at 4, 12 months and yearly. If labwork is done by the primary daycare assistant: please send a copy to the Bariatric Surgery Program, General Surgery Clinic, [facility], or fax [phone] * Sergei Barbara Spencer, RD - 02/03/2023 3:00 PM EST Bariatric Surgery Program Nutrition Progress Note Encounter Type: follow up SUBJECTIVE: Topics Discussed/Patient Concerns: +constipation: discussed increasing dietary fiber intake, discussed increasing Miralax. Pt taking power fiber supplement, discussed alternatives. 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 Lives with dogLatisha, 6 yo rescue. Has 2 children, 4 grandchildren. Social support: Coworkers, family, children live and work close by, mother. Hobbies: enjoys cooking, learning to brenda, going to concerts Vision at 2 years post-op: be at a weight where I feel comfortable walking up hill, keeping up withgrandchildren, go sightseeing, enjoy more activities. Goal weight: under 200# Medical Hx: Class III obesity, Depression, OA, TESSA and Thyroid dz (Ning's thyroiditis), elevated BP without dx. OBJECTIVE: Date of Bariatric Surgery: 10/08/22 w/ Dr. Borrero Type of Bariatric Surgery: Laparoscopic Sleeve Gastrectomy Weight History: Date Weight (lbs) HT BMI Comments 2021 312# Highest Weight 12/20/21 281# 65 46.8 Initial program weight 08/19/22 274# 65 45.7 1st pre-op visit [facility] % Surgery 10/25/22 253# 17% 42.2 3 weeks post-op 02/03/23 232# 34% 38.6 4 months post-op [place] Body Weight (based on BMI of 25): 150 30-70% Excess Weight Loss: 237-184 ; 50% Excess Weight Loss: 212 MEDICATIONS: Vitamin/Mineral Supplements (reported by patient): Supplement Type Brand/Form Dosage/Amount Frequency Comments Multivitamin Fusion 1 per day MVM 1 capsule daily Calcium Calcium citrate chews -Fusion 1 chew Twice daily Misses 1 dose, ~1x/wk Vitamin B12 none Iron Vitamin D3 none Food Allergies/Intolerances: Gluten and lactose sensitivity Tracking Intake: yes MFP, ~1000 calories per day 24-Hour Intake: Breakfast Smoothie (Protein drink, spinach, berries, fiber supplement) AM Snack Lunch Egg drop soup, green beans PM Snack Dinner Chicken cauliflower rice soup, raspberries, dill pickles HS Snack hard boiled eggs Protein/ grams per day: 60-80g Hydrating fluids- oz/ day: 100 oz Soda: none ETOH: None. Caffeine: Decaf only Sweets: No issues tolerating Meals per day: 3 Has had dumping syndrome: 1x after overeating In the past month, pt has vomited/regurgitated: none Constipation/Diarrhea: +constipation, Miralax 1-2x/wk Exercise: recumbent bike few times per week, very active at work. Discussed using resistance bands. ASSESSMENT: Summary of Weight Loss: Liss Mosley returns for routine follow-up at 4 months s/p surgery. Her excess weight loss is at 34%. Pt is tolerating the diet and is meeting protein and fluid goals. Pt reports some constipation, discussed increasing dietary fiber intake, discussed increasing Miralax. Pt taking fiber supplement, discussed alternatives. Reviewed supplements, pt is taking supplements as recommended. Encouraged increased exercise as tolerated. NUTRITION INTERVENTION & MONITORING: Provided support/encouragement and reinforced importance of meeting nutritional goals. Great work meeting protein and fluid goals Increase dietary fiber intake, try fiber capsules Reviewed vitamin and mineral supplement recommendations. Multivitamin with minerals- continue Bariatric Multivitamin 1 pill per day Calcium citrate 500-600 mg with vitamin D twice daily. (2 pills twice per day or 1 chew twice daily) Evaluation by nurse practitioner today. F/u in 8 mo, sooner if requested. documented in this encounter Plan of Treatment Upcoming Encounters Date Type Department Care Team (Late st Contact Info) Description 04/13/2024 3:20 PM EST Office Visit Dermatology at [place] [address] [place] [id number] Felicitas Llanes MD [facility] DR MODESTA [place] [address] 04/26/2024 4:00 PM EST Office Visit [place] [address] Denia Xiao APRN [facility] [address] [place] [address] documented as of this encounter Goals Goal Patient Goal Type Associated Problems Recent Progress Patient-Stated? Author movement Exercise No Arsh So Note: Try cardio chair exercises. Health Cable Repairer will send links to videos. Self monitoring [...] the pause (STOP, and urge surfing. Health Cable Repairer will mail hand-outs. documented as of this encounter Visit Diagnoses Diagnosis S/P gastric sleeve procedure Intertrigo Other specified erythematous condition Disorder of iron metabolism Other disorders of iron metabolism documented in this encounter Care Teams Box Car Checker Relationship Specialty Start Date End Date Barbara, Susan Mobley APRN PCP - General Internal Medicine 10/03/22 09/14/23 documented as of this encounter
--- OUTSIDE RECORDS SUMMARY | 2024-03-20 11:52 | XMS_ITS | Encounter Summary ---
[facility] Organization [facility] [place] [address] Care Team Providers Care Performance Improvement Manager Name Role Phone Susan Jimenez APRN Primary Care Provider [phone] Reason for Visit * Auth/Cert (Routine) Specialty Diagnoses / Procedures Referred By Yury t Referred To Contact Diagnoses Obesity Obesity Procedures PRO LAPAROSCOPY, SURG/GASTRIC RESTRICTIVE PROC, LONGITUDINAL GASTRECTOMY PRO UPPER GI ENDOSCOPY, DIAGNOSTIC @LAPAROSCOPY, SURG/GASTRIC RESTRICTIVE PROC, LONGITUDINAL GASTRECTOMY (WRVU 20.38) EGD, UPPER GI ENDOSCOPY (WRVU 2.09) Annabella Borrero MD [facility] [place] [address] [facility] Referral ID Status Reason Start Date Expiration Date Visits Re quested Visits Authorized [id number] 1 1 Encounter Details Date Type Department Care Team (Late st Contact Info) Description 10/08/2022 1:24 PM EDT - 10/08/2022 4:39 PM EDT Surgery [place] [address] Annabella Borrero MD [facility] [place] [address] @LAPAROSCOPY, SURG/GASTRIC RESTRICTIVE PROC, LONGITUDINAL GASTRECTOMY (WRVU 20.38) Social History Tobacco Use Types Packs/Day Years [...] Sign Reading Time Taken Comments Blood Pressure 111/68 10/08/2022 1:13 PM EDT Pulse 60 10/08/2022 1:13 PM EDT Temperature 36.3 ??C (97.3 ??F) 10/08/2022 1:13 PM ED T Respiratory Rate 16 10/08/2022 1:13 PM EDT Oxygen Saturation 98% 10/08/2022 1:13 PM EDT Inhaled Oxygen Concentration - - [...] Minimally Invasive Surgery- Discharge Summary Patient Name: Liss Mosley Patient Age: 57 y.o. Birthdate: 1965 Admit date: 10/08/2022 Discharge date and time: 10/09/2022 Attending Physician: No att. providers found Primary Diagnosis: Gastric bypass [...] by mouth nightly. 10 mg Refills: 0 Altmar-3 Fatty Acids 100 mg Tablet, Chewable Daily [...] Appointments: Future Appointments Date Time Provider Department Center 10/25/2022 10:00 AM Mellisa Rowland APRN [facility] SURG [facility] 02/03/2023 10:00 AM Mellisa Rowland APRN [facility] SURG [facility] Outpatient Services/Studies: No discharge procedures on file. Instructions Given to Patient at Discharge:. An After Visit Summary was printed and given to the patient. Patient Instructions Discharge Instructions - Bariatric Surgery NEW PRESCRIPTIONS: residence supervisor at [facility] today: Lovenox, omeprazole, Zofran (ondansetron), liquid oxycodone, Miralax, Colace residence supervisor at your home pharmacy: ursodiol HOME MEDICATION [...] - 5pm): General Surgery and Bariatric Surgery [phone] Bariatric Surgeons: Adair Carcamo Trus [phone] [place] Regulator: [phone] Dietitians: [phone] Outside of regular business hours, including weekends and holidays: Ask for General Surgery resident graphics production specialist [phone] Please note, this call will be answered [...] Surgery Team in 3 weeks at the [facility] (Registered Land Surveyor 4L, [facility]). Future Appointments Date Time Provider Department Center 10/25/2022 10:00 AM Mellisa Rowland APRN [facility] SUR[facility] 02/03/2023 10:00 AM Mellisa Rowland APRN [facility] SURG [facility] WOUND CARE You have steri-strips over your [...] twice daily. Please call or send a DoYouBuzz message if you do not have a [...] for assistance to pay for this with TEVIZZ. Go to [email or web address] and put in the prescription and the [...] Follow up with primary care provider or hazardous material specialist in 1-2 weeks in order to [...] Surgery Fellow, PGY-6 10/14/22 4:38 PM MISpager [phone] documented in this encounter Discharge Instructions * Patient Instructions* Gem Wright MD - 10/09/2022 7:33 AM EDT Images from the original note were not included. Discharge Instructions - Bariatric Surgery NEW PRESCRIPTIONS: residence supervisor at [facility] today: Lovenox, omeprazole, Zofran (ondansetron), liquid oxycodone, Miralax, Colace residence supervisor at your home pharmacy: ursodiol HOME MEDICATION [...] - 5pm): General Surgery and Bariatric Surgery [phone] Bariatric Surgeons: Adair Carcamo, Marlen [phone] [place] Regulator: [phone] Dietitians: [phone] Outside of regular business hours, including weekends and holidays: Ask for General Surgery resident graphics production specialist [phone] Please note, this call will be answered [...] Surgery Team in 3 weeks at the [facility] (Registered Land Surveyor 4L, [facility]). Future Appointments Date Time Provider Department Center 10/25/2022 10:00 AM Mellisa Rowland APRN [facility] SURG [facility] 02/03/2023 10:00 AM Mellisa Rowland APRN [facility] SURG [facility] You have steri-strips over your [...] twice daily. Please call or send a DoYouBuzz message if you do not have a [...] for assistance to pay for this with TEVIZZ. Go to [email or web address] and put in the prescription and the [...] Follow up with primary care provider or hazardous material specialist in 1-2 weeks in order to [...] Extract (Echinacea) 125 mg Tablet echinacea 11/11/2023 Altmar-3 Fatty Acids 100 mg Tablet, Chewable Daily [...] Daily Mirna Holt MD 150 mcg at 10/09/22 0600 sodium chloride 0.9 % (flush) (BD PosiFlush [...] mL/hr at 10/09/22 0533 1,000 mL at 10/09/22 0533 pantoprazole (Protonix) injection 40 mg 40 mg Intravenous Daily Mirna Holt MD 40 mg at 10/08/222007 ondansetron (pf) (Zofran) (2 mg/mL) injection 4 mg 4 mg Intravenous Q8H [facility] Mirna Holt MD 4 mg at 10/09/22 0600 prochlorperazine (Compazine) (5 mg/mL) injection 10 mg 10 mg Intravenous Q6H PRN Mirna Holt MD 10 mg at 10/09/22 0012 oxyCODONE (Roxicodone) (1 mg/mL) oral liquid 5 mg 5 mg Oral Q6H PRN Mirna Holt MD acetaminophen (Tylenol) (32.02 mg/mL) oral liquid 650 mg 650 mg Oral Q6H [facility] Mirna Holt MD 650 mg at 10/09/22 [...] Signed: Caitlin Wing MS-3 7:09 AM 10/09/22 MIS service pager: [phone] Patient seen and discussed with Caitlin Wing. Agree with above. Gem Wright MD Minimally Invasive and Bariatric Surgery Fellow, PGY-6 10/09/22 3:40 PM MISpager [phone] * Nilson Shankar MD - 10/08/2022 8:34 [...] Diet: Gastric Bypass diet Stage I-Clear Nilson Shankar MD 10/08/2022 Minimally Invasive Surgery, Team Pager [phone] * Chey Ohara RN - 10/08/2022 6:54 [...] Borrero MD - 10/08/2022 2:19 PM EDT [facility] General Surgery History and Physical History of [...] Biotin 1 mg Tablet Take by mouth. Altmar-3 Fatty Acids 100 mg Tablet, Chewable Daily [...] Borrero MD General Surgery Minimally Invasive Surgery [phone] documented in this encounter Miscellaneous Notes * Op Note - Annabella Borrero MD - 10/08/2022 3:31 PM EDT [facility] Operative Note Patient Name: Liss Mosley : [id number] MR#: [id number] Case Date: 10/08/2022 Surgeon: Surgeon(s) and Role: [...] the greater curvature of the stomach. A 36-Turkmen bougie was then placed into the abdomen [...] 3:20 PM EST Office Visit Dermatology at [facility] [address] [place] [id number] Felicitas Llanes MD [facility] [address] [place] [address] 04/26/2024 4:00 PM EST Office Visit [place] [address] Denia Xiao APRN [facility] [place] [address] documented as of this encounter Goals Goal Patient Goal Type Associated Problems Recent Progress Patient-Stated? Author movement Exercise No Arsh So Note: Try cardio chair exercises. Health Environmental Program Manager will send links to videos. Self monitoring [...] the pause (STOP, and urge surfing. Health Environmental Program Manager will mail hand-outs. documented as of this [...] 4:35 PM EDT Upper GI Endoscopy, Diagnostic (84887) 10/08/2022 2:58 PM EDT Obesity Laparoscopy, Surg/Gastric Restrictive Proc, Longitudinal Gastrectomy ([id number]) 10/08/2022 2:58 PM EDT Obesity POCT GLUCOSE Routine 10/08/2022 1:12 PM EDT @LAPAROSCOPY, SURG/GASTRIC RESTRICTIVE PROC, LONGITUDINA Routine 10/08/2022 12:37 PM EDT UPPER GI ENDOSCOPY Routine 10/08/2022 12 :37 PM EDT documented in this encounter Results * (ABNORMAL) Differential, Automated (10/09/2022 12:30 PM EDT) Neutrophil % 67.5 % [facility] Neutrophil Absolute 6.36(H) 1.70 - 6.10 x10(3)/mc L [facility] Lymph % 25.8 % [facility] Lymphocytes Abs 2.4 0.9 - 3.2 x10(3)/mc L [facility] Monocyte % 5.7 % [facility] Monocyte Abs 0.5 0.3 - 0.9 x10(3)/mc L [facility] Eos % 0.5 % [facility] Eosinophils Abs 0.0 0.0 - 0.4 x10(3)/mc L [facility] Basophil % 0.2 % [facility] Baso Absolute 0.0 0.0 - 0.1 x10(3)/mc L [facility] Immature Gran % 0.30 % [facility] Comment: Immature granulocytes(IG's)percentage and absolute count will include metamyelocytes, myelocytes, and promyelocytes. Blood smears from CBCs yielding IG's will be scanned manually for concordance. If this scan disagrees with the automated IG or if promyelocytes are noted, a manual differential will be performed. Immature Gran Absolute 0.03 0.00 - 0.04 x10(3)/mc L [facility] Blood 10/09/2022 12:3 0 PM EDT 10/09/2022 12:43 PM EDT Narrative Resulting Agency Comment Spec In Lab Letty GAR HEMATOLOGY ORDERABL ES [facility] [place] [address] * (ABNORMAL) Hemogram (10/09/2022 12:30 PM EDT) White Blood Cell 9.4 4.0 - 9.5 x10(3)/mc L [facility] Red Blood Cell 3.87(L) 4.00 - 5.21 x10(6)/mc L [facility] Hemoglobin 11.4(L) 11.7 - 15.5 g/dL [facility] Hematocrit 35.8 35.7 - 45.8 % [facility] Mean Cell Volume 92.5 82.6 - 94.4 fL [facility] Mean Cell Hemoglobin 29.5 27.1 - 32.0 pg [facility] Mean Cell Hemoglobin Concentration 31.8 31.7 - 35.0 g/dL [facility] Platelet 219 145 - 357 x10(3)/mc L [facility] RDW Standard Deviation 46.9(H) 37.0 - 46.0 fL [facility] RDW coefficient of variation 13.7 11.5 - 14.1 % [facility] Mean Platelet Volume 10.3 7.6 - 12.9 fL [facility] NRBC% auto 0.0 % [facility] NRBC Absolute 0.000 0.000 - 0.000 x10(3)/ L [facility] Blood 10/09/2022 12:3 0 PM EDT 10/09/2022 12:43 PM EDT Narrative Resulting Agency Comment Spec In Lab Letty GAR HEMATOLOGY ORDERABL ES [facility] [place] [address] * (ABNORMAL) Differential, Automated (10/09/2022 3:15 AM EDT) Pathologist [facility] Neutrophil % 80.7 % [facility] Neutrophil Absolute 5.69 1.70 - 6.10 x10(3)/mc L [facility] Lymph % 15.1 % [facility] Lymphocytes Abs 1.1 0.9 - 3.2 x10(3)/mc L [facility] Monocyte % 3.6 % [facility] Monocyte Abs 0.2(L) 0.3 - 0.9 x10(3)/ L [facility] Eos % 0.0 % [facility] Eosinophils Abs 0.0 0.0 - 0.4 x10(3)/ L [facility] Basophil % 0.3 % [facility] Baso Absolute 0.0 0.0 - 0.1 x10(3)/mc L [facility] Immature Gran % 0.30 % [facility] Comment: Immature granulocytes(IG's)percentage and absolute count will include metamyelocytes, myelocytes, and promyelocytes. Blood smears from CBCs yielding IG's will be scanned manually for concordance. If this scan disagrees with the automated IG or if promyelocytes are noted, a manual differential will be performed. Immature Gran Absolute 0.02 0.00 - 0.04 x10(3)/ L [facility] Blood 10/09/2022 3:15 AM EDT 10/09/2022 3:24 AM EDT Narrative Resulting Agency Comment Spec In Lab Mirna Holt MD HEMATOLOGY ORDERABLE S [facility] [place] [address] * (ABNORMAL) Hemogram (10/09/2022 3:15 AM EDT) White Blood Cell 7.0 4.0 - 9.5 x10(3)/mc L [facility] Red Blood Cell 3.93(L) 4.00 - 5.21 x10(6)/ L [facility] Hemoglobin 11.7 11.7 - 15.5 g/dL [facility] Hematocrit 36.4 35.7 - 45.8 % [facility] Mean Cell Volume 92.6 82.6 - 94.4 fL [facility] Mean Cell Hemoglobin 29.8 27.1 - 32.0 pg [facility] Mean Cell Hemoglobin Concentration 32.1 31.7 - 35.0 g/dL [facility] Platelet 211 145 - 357 x10(3)/mc L [facility] RDW Standard Deviation 45.5 37.0 - 46.0 fL [facility] RDW coefficient of variation 13.3 11.5 - 14.1 % [facility] Mean Platelet Volume 9.8 7.6 - 12.9 fL [facility] NRBC% auto 0.0 % [facility] NRBC Absolute 0.000 0.000 - 0.000 x10(3)/mc L [facility] Blood 10/09/2022 3:15 AM EDT 10/09/2022 3:24 AM EDT Narrative Resulting Agency Comment Spec In Lab Mirna Holt MD HEMATOLOGY ORDERABLE S Performing Organization Address City/[facility]/ZIP Co de Phone Number [facility] [place] [address] * (ABNORMAL) Phosphorus (10/09/2022 3:15 AM EDT) Phosphorus 4.6(H) 2.5 - 4.5 mg/dL [facility] Blood 10/09/2022 3:15 AM EDT 10/09/2022 3:24 AM EDT Narrative Resulting Agency Comment Spec In Lab Annabella Borrero MD CHEMISTRY ORDERABLES Performing Organization Address [facility] Co de Phone Number [facility] [place] [address] * Magnesium (10/09/2022 3:15 AM EDT) Magnesium 0.88 0.69 - 1.07 mmol/L [facility] Blood 10/09/2022 3:15 AM EDT 10/09/2022 3:24 AM EDT Narrative Resulting Agency Comment Spec In Lab Annabella Borrero MD CHEMISTRY ORDERABLES Performing Organization Address [facility] Co de Phone Number [facility] [place] [address] * (ABNORMAL) Basic Metabolic Panel (non-fasting) (10/09/2022 3:15 AM EDT) Glucose 124 65 - 199 mg/dL [facility] Comment:Diabetes: >=200 mg/d L plus symptoms Blood Urea Nitrogen 22(H) 8 - 18 mg/dL [facility] Creatinine 0.74 0.70 - 1.20 mg/dL [facility] Sodium 134(L) 135 - 145 mmol/L [facility] Potassium 4.7 3.5 - 5.0 mmol/L [facility] Comment: Please note: ??Patients with WBC >100,000 may have falsely elevated Potassium levels. ??For accurate Potassium quantification in these patients send serum separator tube (gold top) for subsequent determinations. ??Contact the Clinical Chemistry Laboratory if there are any questions. Chloride 103 98 - 107 mmol/L [facility] Carbon Dioxide 21(L) 22 - 31 mmol/L [facility] Anion Gap 10 5 - 15 mmol/L [facility] Calcium 8.7 8.5 - 10.5 mg/dL [facility] Est Glomerular Filtration Rate 93 >=60 mL/min/1. 73 m?? [facility] Comment: This patient's estimated GFR was [...] In Lab Annabella Borrero MD CHEMISTRY ORDERABLES [facility] [place] [address] * Specimen to Pathology (10/08/2022 4:36 PM EDT) AP Specimen 10/08/2022 4:36 PM EDT 10/08/2022 4:36 PM EDT Narrative [facility] - 10/08/2022 4:36 PM EDT Specimen requisition ordered. ??Separate Pathology report to follow Annabella Borrero MD PATHOLOGY/CYTOLOGY [facility] [place] [phone] * Surgical Pathology Report (10/08/2022 4:35 PM EDT) Final Diagnosis [id number] ? [facility] [address] The signing pathologist has (i) examined [...] Verified: ??10/16/2022 9:18 ?? Pathologist Performed at: ??-[facility] Dept. of Pathology, [place] [address] Manager Roofing: Araceli Chowdary MD, AP, ??CLIA Certificate: [id number] ADDITIONAL STUDIES Immunohistochemistry Studies: Formalin-fixed, paraffin-embedded tissue [...] x 0.3 x 0.1 cm polyp. Sections/Processing: Managed Care Liaison sections in 1 cassettes as follows: ?A1: ??Managed Care Liaison mucosa, including the polyp ??vmj 10/16/2022 9:18 AM EDT [facility] STOMACH STRUCTURE / Unknown 10/08/2022 4:35 PM EDT 10/08/2022 4:35 PM EDT Annabella Borrero MD PATHOLOGY/CYTOLOGY [facility] Performing Organization Address City/[facility] Co de Phone Number [facility] [place] [address] [facility] [place] [address] * POCT Glucose (10/08/2022 1:12 PM EDT) Glucose, POC 90 65 - 199 mg/dL [facility] Comment: Supplemental ranges: <140 mg/dL before meals <180 mg/dL all other times of the day Blood 10/08/2022 1:12 PM EDT 10/08/2022 1:12 PM EDT Annabella Borrero MD POINT OF CARE TEST O [facility] Performing Organization Address City/[facility]/ZIP Co de Phone Number [facility] [place] [address] documented in this encounter Visit Diagnoses Not on filedocumented in this encounter Admitting Diagnoses Diagnosis Gastric bypass status for obesity Bariatric surgery status documented in this encounter Administered Medications Inactive Administered Medications - up to 3 most recent administrations Medication Order MAR Action Action Date Dose Rate Site acetaminophen (Tylenol) tablet 650 mg 650 mg, Oral, EVERY 6 HOURS SCHEDULED, First dose on Fri10/09/22 at 1200, Until Discontinued, Maximum dose of acetaminophen is 4,000 mg from all sources in 24 hours. When ordered for pain, acetaminophen should be given even when other ordered pain medications are indicated. , Routine Given 10/09/2022 12:35 PM EDT 650 mg BUpivacaine (pf) (Marcaine) (2.5 mg/mL) 0.25% injection PRN, Starting on Fri10/08/22 at 1535, Until Fri10/09/22 at 1557, Intra-Operative (Intra-Procedure), Routine Given 10/08/2022 4:40 PM EDT 14 mg 19- Surgical Site Given 10/08/2022 3:35 PM EDT 16 mLs 19 - Surgical Site celecoxib (CeleBREX) capsule 200 mg 200 mg, Oral, 2 TIMES DAILY, First dose on Fri10/09/22 at 0900, Until Discontinued, Routine Given 10/09/2022 9:02 AM EDT 200 mg enoxaparin (Lovenox) (40 mg/0.4 mL) subcutaneous [...] 10/09/2022 5:33 AM EDT 1,000 mLs 125 m L/hr Rate/Dose Verify 10/09/2022 12:05 AM EDT 125 [...] Given 10/09/2022 9:02 AM EDT 50 mg sodium chloride 0.9 % (flush) [...] on Fri10/09/22 at 0900, Until Discontinued, Routine 0902 (Given - Provider: Roseanne Vaughn RN) celecoxib [...] minutes., Routine 2007 (Given - Provider: Stefani Schmdi RN) 901 (Given - Provider: Roseanne Vaughn RN) sertraline (Zoloft) tablet 50 mg 50 mg, Oral, DAILY, First dose on Fri10/09/22 at 0900, Until Discontinued, Cut in half and give both halves, Routine 901 (Given - Provider: Roseanne Vaughn RN) simethicone (Gas-X Chew) 80 mg chewable tablet 80 mg (COMPLETED) 80 mg, Oral, ONCE, 1 dose, On Fri10/09/22 at 0045, Routine 0045 (Given - Provider: Stefani Schmid RN) sodium chloride 0.9 % (flush) (BD PosiFlush Normal Saline 0.9) flush 5 mL 5 mL, Intravenous, 2 TIMES DAILY, First dose on Fri10/08/22 at 2100, Until Discontinued, Recovery (Recovery-Hospital Unit), Routine 2007 (Given - Provider: Stefani Schmid, KONG) 0902 (Given - Provider: Roseanne Vaughn RN) [...] 1557 1804 (New Bag - Provider: Yolanda Jimenez, KONG)1903 (Paused - Provider: Chey Ohara RN - Comment: IV removed inadvertently. awaiting new access)1999 (New Bag - Provider: Stefani Schmid, KONG) 0005 (Rate/Dose Verify - Provider: Stefani Schmid, KONG)0533 (New Bag - Provider: Stefani Schmid, RN) PRN Medication Order 10/07/2022 10/08/2022 10/09/2022 [...] use prochlorperazine or haloperidoL second, PACU Recovery 1807 (Given - Provider: Yolanda Jimenez, RN) oxyCODONE (Roxicodone) (1 mg/mL) oral liquid 5 [...] effective., Routine 0012 (Given - Provider: Stefani Schmid, KONG) sodium chloride 0.9 % (flush) (BD PosiFlush Normal Saline 0.9) flush 5-20 mL 5-20 mL, Intravenous, EVERY 1 MIN PRN, Starting on Fri10/08/22 at 1933, Until Fri10/09/22 at 1557, flush, Flush pertains to all indwelling lines. Flush per protocol found in the job aid using the link provided on this medication record., Recovery (Recovery-Hospital Unit), Routine documented in this encounter Care Teams Performance Improvement Manager Relationship Specialty Start Date End Date Barbara, Susan Mobley APRN PCP - General Internal Medicine 10/03/22 09/14/23 documented as of this encounter
--- OUTSIDE RECORDS SUMMARY | 2024-03-20 11:52 | XMS_ITS | Encounter Summary ---
Author Organization Formerly [facility] [place] [address] Care Team Providers Care Bindery Machine Feeder Offbearer Name Role Phone Carolyn Christianson APRN Primary Care Provider [phone] Encounter Details Date Type Department Care Team (Latest Contact Info) Description 08/19/2022 3:20 PM EDT Laboratory Appointment Lab [address] [place] [address] Pre-op evaluation; Obesity, unspecified classification, unspecified obesity [...] 3:20 PM EST Office Visit Dermatology at [facility] [address] [place] [id number] Felicitas Llanes MD [facility] [address] [address] 04/26/2024 4:00 PM EST Office Visit Nephrology Hypertension at [facility], [place] [address] Denia Xiao APRN [facility] [place] [address] documented as of this encounter Goals Goal Patient Goal Type Associated Problems Recent Progress Patient-Stated? Author movement Exercise No Arsh So Note: Try cardio chair exercises. Health Motorcoach Driver will send links to videos. Self monitoring [...] goals updated 3. Lifestyle No Arlin Mac I, HILLARY Note: [...] the pause (STOP, and urge surfing. Health Motorcoach Driver will mail hand-outs. documented as of this encounter Procedures Procedure Name Priority Date/Time Associated Diagnosis Comments PTH Routine 08/19/2022 3:38 PM EDT Pre-op evaluation Obesity, unspecified classification, unspecified obesity type, unspecified whether serious comorbidity present HEMOGRAM Routine 08/19/2022 3:38 PM EDT Pre-op evaluation Obesity, unspecified classification, unspecified obesity type, unspecified whether serious comorbidity present VITAMIN B1, WHOLE BLOOD Routine 08/19/2022 3:38 PM EDT Pre-op evaluation Obesity, unspecified classification, unspecified obesity type, unspecified whether serious comorbidity present IRON AND TIBC Routine 08/19/2022 3:38 PM EDT Pre-op evaluation Obesity, unspecified classification, unspecified obesity type, unspecified whether serious comorbidity present VITAMIN D, 25-HYDROXY Routine 08/19/2022 3:38 PM EDT Pre-op evaluation Obesity, unspecified classification, unspecified obesity type, unspecified whether serious comorbidity present FOLATE, SERUM Routine 08/19/2022 3:38 PM EDT Pre-op evaluation Obesity, unspecified classification, unspecified obesity type, unspecified whether serious comorbidity present FERRITIN Routine 08/19/2022 3:38 PM EDT Pre-op evaluation Obesity, unspecified classification, unspecified obesity type, unspecified whether serious comorbidity present VITAMIN B12 Routine 08/19/2022 3:38 PM EDT Pre-op evaluation Obesity, unspecified classification, unspecified obesity type, unspecified whether serious comorbidity present COMPREHENSIVE METABOLIC PANEL Routine 08/19/2022 3:38 PM EDT Pre-op evaluation Obesity, unspecified classification, unspecified obesity type, unspecified whether serious comorbidity present documented in this encounter Results * (ABNORMAL) Comprehensive metabolic panel (non-fasting) (08/19/2022 3:38 PM EDT) Glucose 76 65 - 199 mg/dL [facility] Comment:Diabetes: >=200 mg/d L plus symptoms Blood Urea Nitrogen 27(H) 8 - 18 mg/dL [facility] Creatinine 0.82 0.70 - 1.20 mg/dL [facility] Sodium 138 135 - 145 mmol/L [facility] Potassium 4.3 3.5 - 5.0 mmol/L [facility] Comment: Please note: ??Patients with WBC >100,000 may have falsely elevated Potassium levels. ??For accurate Potassium quantification in these patients send serum separator tube (gold top) for subsequent determinations. ??Contact the Clinical Chemistry Laboratory if there are any questions. Chloride 102 98 - 107 mmol/L [facility] Carbon Dioxide 25 22 - 31 mmol/L [facility] Anion Gap 11 5 - 15 mmol/L [facility] Calcium 9.7 8.5 - 10.5 mg/dL [facility] Protein, Total 7.7 6.1 - 8.0 g/dL [facility] Albumin 4.6 3.2 - 5.2 g/dL [facility] Aspartate Aminotransferase 14 0 - 30 unit/L [facility] Alanine Aminotransferase 16 0 - 30 unit/L [facility] Alkaline Phosphatase 65 35 - 105 unit/L [facility] Bilirubin, Total <0.2(L) 0.2 - 1.3 mg/dL [facility] Est Glomerular Filtration Rate 82 >=60 mL/min/1. 73 m?? [facility] Comment: This patient's estimated GFR [...] Comment Spec In Lab Mellisa E Kashif AUTOMOTIVE POWER ELECTRONICS ENGINEER CHEMISTRY ORDERABL ES Performing Organization Address City/[facility] Co de Phone Number [facility] [place] [address] * Ferritin (08/19/2022 3:38 PM EDT) Pathologist [facility] Ferritin 136 30 - 400 ng/mL [facility] Comment: Pediatric reference ranges not verified at [facility], interpret with caution. Reference ranges for females greater than 50 years of age approach values for men, i.e., 30-400 ng/mL. Blood 08/19/2022 3:38 PM EDT 08/19/2022 3:45 PM EDT Narrative Resulting Agency Comment Spec In Lab Mellisa E Kashif AUTOMOTIVE POWER ELECTRONICS ENGINEER CHEMISTRY ORDERABL ES Performing Organization Address [facility] Co de Phone Number [facility] [place] [address] * Folate, serum (08/19/2022 3:38 PM EDT) Pathologist [facility] Folate 5.0 4.8 - 24.2 ng/mL [facility] Blood 08/19/2022 3:38 PM EDT 08/19/2022 3:45 PM EDT Narrative Resulting Agency Comment Spec In Lab Mellisa E [place] AUTOMOTIVE POWER ELECTRONICS ENGINEER CHEMISTRY ORDERABL ES Performing Organization Address [facility] Co de Phone Number [facility] [place] [address] * (ABNORMAL) Hemogram (08/19/2022 3:38 PM EDT) White Blood Cell 8.5 4.0 - 9.5 x10(3)/mc L [facility] Red Blood Cell 4.21 4.00 - 5.21 x10(6)/mc L [facility] Hemoglobin 12.2 11.7 - 15.5 g/dL [facility] Hematocrit 39.6 35.7 - 45.8 % [facility] Mean Cell Volume 94.1 82.6 - 94.4 fL [facility] Mean Cell Hemoglobin 29.0 27.1 - 32.0 pg [facility] Mean Cell Hemoglobin Concentration 30.8(L) 31.7 - 35.0 g/dL [facility] Platelet 312 145 - 357 x10(3)/mc L [facility] RDW Standard Deviation 49.9(H) 37.0 - 46.0 fL [facility] RDW coefficient of variation 14.4(H) 11.5 - 14.1 % [facility] Mean Platelet Volume 9.3 7.6 - 12.9 fL [facility] NRBC% auto 0.0 % [facility] NRBC Absolute 0.000 0.000 - 0.000 x10(3)/mc L [facility] Blood 08/19/2022 3:38 PM EDT 08/19/2022 3:45 PM EDT Narrative Resulting Agency Comment Spec In Lab Mellisa E Kashif AUTOMOTIVE POWER ELECTRON[employer] ENGINEER HEMATOLOGY ORDERAB LES Performing Organization Address City/[facility]/ZIP Co de Phone Number [facility] [place] [address] * (ABNORMAL) Iron and TIBC (08/19/2022 3:38 PM EDT) Iron 36 30 - 150 mcg/dL [facility] TIBC 332 250 - 450 mcg/dL [facility] Iron Saturation 11(L) 20 - 50 % [facility] Blood 08/19/2022 3:38 PM EDT 08/19/2022 3:45 PM EDT Narrative Resulting Agency Comment Spec In Lab Mellisa E [place] AUTOMOTIVE POWER ELECTRONICS ENGINEER CHEMISTRY ORDERABL ES Performing Organization Address City/[facility]/ZIP Co de Phone Number [facility] [place] [address] * PTH (08/19/2022 3:38 PM EDT) Parathyroid Hormone 46 15 - 65 pg/mL [facility] Blood 08/19/2022 3:38 PM EDT 08/19/2022 3:45 PM EDT Narrative Resulting Agency Comment Spec In Lab Mellisa E [place] AUTOMOTIVE POWER ELECTRONICS ENGINEER CHEMISTRY ORDERABL ES Performing Organization Address [facility] Co de Phone Number [facility] [place] [address] * Vitamin B1, whole blood (08/19/2022 3:38 PM EDT) Vit B1 Lvl Wb (JULY) 139 70 - 180 nmol/L [facility] Comment: ADDITIONAL INFORMATION This test was developed and its performance characteristics determined by [facility] in a manner consistent with CLIA requirements. This test has not been cleared or approved by the U.S. Food and Drug Administration. Test Performed by: [facility] [place] [address] Analysis Tester: Ganesh Henry M.D. Ph.D.; CLIA# [id number] Blood 08/19/2022 3:38 PM EDT 08/20/2022 10:05 AM EDT Narrative Resulting Agency Comment Spec In Lab Mellisa E Kashif AUTOMOTIVE POWER ELECTRONICS ENGINEER LAB SEND OUT ORDER LOLITA Performing Organization Address [facility] Co de Phone Number [facility] [place] [address] * Vitamin B12 (08/19/2022 3:38 PM EDT) Vitamin B12 477 232 - 1,245 pg/mL [facility] Blood 08/19/2022 3:38 PM EDT 08/19/2022 3:45 PM EDT Narrative Resulting Agency Comment Spec In Lab Mellisa E [place] AUTOMOTIVE POWER ELECTRONICS ENGINEER CHEMISTRY ORDERABL ES Performing Organization Address City/[facility]/ZIP Co de Phone Number [facility] [place] [address] * Vitamin D, 25-Hydroxy (08/19/2022 3:38 PM EDT) Vitamin D Total 25 OH 28 21 - 100 ng/mL [facility] Vit D Interp Insufficient [facility] Blood 08/19/2022 3:38 PM EDT 08/19/2022 3:45 PM EDT Narrative Resulting Agency Comment Spec In Lab Mellisa E Kashif AUTOMOTIVE POWER ELECTRONICS ENGINEER CHEMISTRY ORDERABL ES Performing Organization Address [facility] Co de Phone Number [facility] [place] [address] documented in this encounter Visit Diagnoses Diagnosis Pre-op evaluation Preoperative examination, unspecified Obesity, unspecified classification, unspecified obesity type, unspecified whether serious comorbidity present documented in this encounter Care Teams Bindery Machine Feeder Offbearer Relationship Specialty Start Date End Date Carolyn Christianson APRN PCP - General Family Medicine 12/21/20 10/02/22 documented as of this encounter
--- OUTSIDE RECORDS SUMMARY | 2024-03-20 11:52 | XMS_ITS | Encounter Summary ---
Author Organization Formerly [facility] [place] [address] Care Team Providers Care Chair Name Role Phone Carolyn Christianson APRN Primary Care Provider [phone] Encounter Details Date Type Department Care Team (Late st Contact Info) Description 09/18/2022 1:00 PM EDT Office Visit [place] [id number] Mellisa Rowland RESIDENTIAL FINISH CARP[employer] [facility] [place] [address] Encounter for pre-bariatric surgery counseling and education Social History Tobacco Use Types Packs/Day Years [...] on file documented as of this encounter Patient Instructions * Patient Instructions* Mellisa Rowland APRN - 09/18/2022 1:00 PM EDT [facility] BARIATRIC SUPPORT TEAM CONTACT NUMBERS (Mon-Fri 8am - 5pm): General Surgery and Bariatric Surgery [phone] Bariatric Surgeons: Doctors. Gandara [phone] Nephrologist: [phone] Dietitians: [phone] Outside of regular business hours, including weekends and holidays: Ask for General Surgery resident systems applications programming lead [phone] BEFORE YOUR SURGERY: Questions for your doctor, specialist or pharmacist: Ask your doctor about medication suggestions if you currently take medications that are larger than the size of a tylenol or calcium pill. Large pills need to be crushed (if permitted by the drug hearing therapy teacher), taken in smaller size pills, or taken in liquid form for TWO WEEKS after surgery. If you take antinflammatory medications or steroid medications for arthritis or asthma, please check with your doctor. These medications will need to be held 1 week prior to and at least a few weeks after surgery. Oral contraceptive pills, post menopausal hormones, and male hormones should be stopped 1 month before and 1 month after surgery. If you have sleep apnea be sure to bring your CPAP/BiPAP with you to the hospital. Schedule a follow up appointment with your primary care provider 10-14 days after your surgery. Bring your handbook with you to the hospital AFTER YOUR SURGERY: GENERAL BARIATRIC SURGERY DISCHARGE INFORMATION (some information specific to health problems list below may not pertain to you) FOR EMERGENCIES: CALL 911 (trouble breathing, chest pain, rapid heart rate or severe abdominal pain) CALL THE BARIATRIC TEAM FOR ANY OF THE FOLLOWING: Signs and symptoms of infection such as: - Redness or swelling or new significant drainage from wounds - Drainage or bleeding from wounds - Fever over 101 degrees Fahrenheit, or shaking chills Persistent diarrhea or vomiting or inability to keep down food or fluids down in a 24 hour period. Signs / symptoms of a blood clot: leg swelling, redness, or pain Problems with urination or constipation, worsening abdominal pain not controlled with pain medication Any concerns you may have after your surgery Follow up Information: You will be given a surgical follow-up appointment with The Bariatric Surgery Team in 3-4 weeks at the General Surgery Outpatient Clinic (Consumer Safety Inspector 4L, [facility]). BATHING AND WOUND CARE: You may shower 2 days after surgery Wash incisions with unscented mild soap Rinse, pat dry and leave open to air. Remove Steri-strips if they don't fall off by 7-10 days after discharge. Pat dry if they become wet. Do not soak wound (no baths, no swimming) for 3 weeks after surgery ACTIVITY, LIFTING AND DRIVING: For laparoscopic surgery: there are no lifting restrictions. Lift when you feel comfortable. Do not drive for 2 weeks. After [address] when comfortable and not taking narcotic pain medicine. DIET: Follow Stage II diet for two weeks. Keep a log of your intake: Daily goals are: 48-64 ounces of fluids and 60 grams of protein. MEDICATIONS: For 2 WEEKS: LARGE pills (bigger than the size of a calcium pill) must be crushed, Capsules must beopened onto applesauce or pudding. Pills smaller than the size of a calcium DO NOT need to be crushed. Not all medications can be crushed. Check with your pharmacist if unsure. HOLD bariatric vitamins for 2 weeks after surgery BLOOD CLOT PREVENTION: Be active, walk at least 4 times a day and do blood clot prevention exercises in your handbook on page 82. Some patients will be discharged on enoxaparin twice a day for 10 days to prevent blood clots, which is determined by the surgeon. IF YOU ARE TREATED FOR OBSTRUCTIVE SLEEP APNEA: IMPORTANT - you MUST use your CPAP/ BIPAP after surgery while sleeping at night and also when napping during the day because some medications you may have been prescribed at discharge can decrease your breathing. Follow up with the Sleep Center if pressure seems to be too high. ULCER PREVENTION: IMPORTANT - you must take acid suppressing medication such as pantoprazole, nexium or omeprazole for 3 MONTHS after surgery. This is taken to prevent ulcers at your surgical sites internally, even ifyou do not have heartburn. omeprazole 20 mg daily (or another medication you may currently take for heartburn/reflux that has been discussed with Bariatric Team) Omeprazole capsules contain enteric-coated, delayed-release granules. Because these granules shouldnot be chewed or crushed, you must OPEN the capsules, sprinkle the enteric-coated granules on applesauce or yogurt. Alternatively, you may take the granules with apple juice, or swallow them quickly with water. Follow any of these methods with additional water to ensure that you have swallowed the granules completely. If your insurer does not cover omeprazole, or similar medications such as pantoprazole, you must purchase these medications over the counter. Decrease the medication to every other day when you have 7 days left in your prescription. Continuethis after the initial 3 month course if you have heartburn or reflux If you have Juárez's esophagus, continue the medication half-way GALLSTONE PREVENTION: If you have had your gallbladder REMOVED - you do not need this medication. If you have your gallbladder after Bariatric Surgery - you must take start taking Ursodiol (Actigall) 300 mg twice a day to prevent gallstones. You may START this medication 2 weeks after surgery fora duration of 6 months. After that, you may stop this medication unless otherwise directed. PAIN MEDICATION: Your pain should lessen with [...] Do NOT use NSAIDS (ibuprofen, Motrin, Aleve, Toradol, aspirin, etc.) to adjunct your pain control. Opioids [...] address this. OTHER MEANS FOR PAIN RELIEF: Other than medications. Learn deep breathing exercises or meditation to [...] SURGERY: Discontinue anti-inflammatory non-steroidal medications, such as Celebrex, Mobic, Advil (ibuprofen), Aleve (naprosyn), etc. Refer to Medications that may increase the risk of bleeding in handbook. If you do take aspirin for your heart or to prevent strokes, continue as prescribed. CONSTIPATION: Be sure you are meeting your fluid goals and moving/walking. Take 1 capful of miralaxdaily (preferably at night) with a goal of [...] daily but continue to take miralax every day. WOMEN OF CHILDBEARING AGE: Fertility may increase [...] Follow up with primary care provider or wound/ostomy clinical nurse specialist in 1-2 weeks in order to adjust your changing diabetes treatment requirements. PATIENTS WITH HIGH BLOOD PRESSURE: Monitor your blood pressure regularly. If you feel dizzy and have been drinking 48-64 ounces of fluid, have your blood pressure checked. If your blood pressure is low, call your primary care provider. Keep a log to bring to your PCP appointments. PATIENTS WHO TAKE DIURETICS (WATER PILLS) such as furosemide, HCTZ (hydrochlorothiazide), spironolactone: Check with your surgical team prior to [...] medications unless advised. Ongoing counseling is encouraged. Some patients notice a change in their mood early after surgery, if you are having difficulty coping with the lifestyle or dietary changes associated with surgery please follow up with your primary care provider or your mental health provider. Important to have non-food related ways to cope with stress. VITAMIN AND MINERAL SUPPLEMENTATION: START at 2 [...] You should follow up with your surgeon or bariatric nurse practitioner and dietitian at 3-4 weeks after surgery. You will follow up with the dietitian and Bariatric nurse practitioner at 4, 12 months, then yearlyfor life. Vitamins and supplements are required for life. Pre-op Class Nutrition Outline PRE-OP DIET Important to follow pre-op diet for full 2 weeks before surgery to shrink the liver and make it more pliable for the surgeons. Your Goals: 800-1000 Calories 80-100 grams Carbohydrates 60-80 grams Protein (men or people with a BMI over 50 should aim for 80 grams per day) 48-64 ounces of Hydrating Fluid Log intake before your meal. Try to log a day of meals in advance. HYDRATING FLUIDS AVOID soda, alcohol, caffeine, and juice or other sweetened beverages Wait 30 minutes before and after meals to drink fluids Stay hydrated to prevent dehydration, constipation, and kidney stones DIET STAGES Stay on the Stage 2 diet for 2 full weeks to allow the stomach to heal safely, decrease risk of blockage or intolerance, and to help with early weight loss. VITAMINS AND MINERALS FOR LIFE Start vitamins and minerals 2 weeks after surgery MVM- one taken twice per day Calcium Citrate- 7779-4228 mg daily total, 500-600 mg taken two-three times per day B-12- 500 mcg daily (sublingual or oral) Iron 50-66 mg daily if anemic or still having menstrual cycles. (Space 2 hours apart from Calcium.) Take bariatric supplements as directed on the label PROTEIN SUPPLEMENTS At least 20 g protein per serving (1 scoop or ???[id number]?? ) Under 200 calories for ???[id number]?? Under 100 calories per scoop for powder Under 5 g sugar (under 10 g total carb) Whey or soy based VOMITING/ DUMPING SYNDROME/FOOD INTOLERANCE Causes of vomiting: eating too fast or too much, improper chewing, drinking with meals, and eating foods you do not tolerate Dumping Syndrome: Caused when excess carbs or fats are dumped into the small intestine and it has trouble managing the excess Late Phase Dumping: Can occur 2-4 hours after meal, high carbohydrate load in the intestine increases blood sugar and insulin release. Excess insulin takes out too much blood sugar and causes low blood sugar. Treat with the 15/15 rule. Food Intolerance: Caused when the stomach pouch is having trouble digesting foods. TRACKING FOOD AND FLUID INTAKE Very important! Helps to ensure you are meeting your daily goals and taking required supplementation. Helps you to determine which foods you may not tolerate or cause dumping syndrome. CAUSES OF WEIGHT REGAIN It is not uncommon to have a little weight rebound a couple of years out from surgery Not enough protein, fluid or physical activity Emotional eating Grazing/ snacking on high carb, low nutrient foods Lack of personal responsibility for staying on track and in control TIPS FOR SUCCES CHEW, CHEW, CHEW!!! Add one new food at a time Eat VERY slowly Drink between meals Measure food & beverages Stay mindful, listen to your body Pay attention to your hunger Plan your meals & snacks, shop with a list Survival Tips for the First Month after Surgery Keep it simple. Focus on the positives in your life. Everything will get easier with time. MEDICATION INFORMATION: All bariatric surgery prescriptions, including narcotics and enoxaparin (if needed), will be provided during your inpatient stay. The prescription is typically sent to the [facility] Pharm[facility] at discharge. Take the medication to prevent ulcer (omeprazole or similar medications) for 3 full months, even ifyou do not have heartburn. START at discharge. You can discontinue after 3 months as long as you are not having any heartburn or reflux. Take ursodiol (Actigall) for 6 full months to prevent gallstones (if you have a gallbladder). STARTat 2 weeks after surgery. Supplements for LIFE: START at 2 weeks after surgery. Take chewable multivitamin with minerals and iron twice a day, vitamin B12 500 mcg daily and calcium citrate 500-600 mg with vitamin D 400 IU twice a day. If you take a bariatric specific multivitamin, follow directions on bottle. Iron with vitamin C should be taken only if you have anemia, iron deficiency or regular periods. If you take medications for depression and/or anxiety, stay on these medications for at least 6 months after surgery. Do not attempt to taper without medical supervision. Counseling is recommended. Avoid narcotic pain medication if possible. Narcotics, such as oxycodone, may cause nausea, constipation and strange dreams. Try acetaminophen (Tylenol) instead. A heating pad/hot water bottle can also provide pain relief. NUTRITION TIPS: You will feel full very quickly with very small amounts of food. This is NORMAL. You are unlikely to feel hungry- this is also normal. Foods may taste different than prior to surgery. You must eat 3 meals a day, despite a lack of hunger. Journal your intake every day so that you know how much protein and fluids you are getting. Add a snack or two if needed to get closer to the goal of 60 grams of protein a day. Reaching goalswill be difficult to achieve in the first month or two after surgery. Make sure to sip rather than gulp water throughout the day (within the 30-30-30 rule). Carry a water bottle everywhere you go. The stage 2 diet must be followed for 14 days. It is BORING, but follow it anyway. It will help your stomach heal faster. Advancing the diet can make you sick. Weight: plateaus are normal, even early after surgery. Don't be discouraged. Avoid weighing yourself daily. You will likely gain some weight in the hospital due to intravenous fluids. Bowels: You may have loose bowels after surgery or be constipated. If you have not had a BM within 2 days, take Maryana-Lax or milk of magnesia. Increasing water intake and walking is helpful. Call if no BM after 3 days. Activity: Be active, walking at least 4 times a day to prevent blood clots. After surgery, it is normal to feel tired. Take a nap if you feel tired. Some patients find sleeping in a recliner more comfortable early post-surgery. [facility] Post-Bariatric Surgery Events Calendar Date Time period Activity Comments Day of discharge Start medication to prevent ulcer such as omeprazole. Don't take meds that can cause ulcers such as Advil, Excedrin, Aleve etc for at least 2 months If you took heartburn medication such as Nexium or Prevacid prior to surgery you can take it instead of omeprazole. The prescription is sent at discharge, but is available over the counter. Stay on stage 2 diet for 2 full weeks If ordered, start injections (enoxaparin) Inject twice a day for 10 days to prevent blood clots. custodial supervisor prescription at [facility] Pharm[facility] 2 weeks post surgery If you have a gallbladder, start Ursodiol . Take for 6 months to prevent gallstones This prescription is sent at discharge. Call the pharmacy to check buchanan first, if >$200, call us to rewrite prescription via [facility] Start stage 3 diet Start vitamins and supplements Visit with PCP to check your overall health, including blood pressure, diabetes, mental health, etc. If you have diabetes or take lots of blood pressure medications and/ or fluid pills, see your PCP at 1 week post-op 3 weeks: visits with surgeon or STEREOTYPE MOLDER and dietitian Bring diet logs and complete list of medications, vitamins/supplements including dose and type (or take photos) 4 weeks Start stage 4 diet This is your meal plan for life 3 months Stop ulcer prevention medication. Taper the doses to every other day for a week prior to ending the prescription If you have heartburn, call your PCP for refill also available over the counter. Do not taper medication if you have Juárez's esophagus 4 months: Visits with RD /STEREOTYPE MOLDER Bring complete list of medications and supplements including dose and type (or take photos) Have lab work done before your appointment. Bring copies of any labwork that may have been done by your PCP 6.5 months Stop Ursodiol. No refills are needed. 12 [address] RD/STEREOTYPE MOLDER Bring complete list of medications and supplements including dose and type (or take photos) Have lab work done before your appointment. Bring copies of any labwork that may have been done by your PCP* 2 years and yearly for life visits with RD/STEREOTYPE MOLDER Bring complete list of medications and supplements including dose and type (or take photos) Have lab work done before your appointment. Bring copies of any labwork that may have been done by your PCP Abbreviations: RD: registered dietitian. STEREOTYPE MOLDER: nurse practitioner documented in this encounter Progress Notes * Barbara Mai RD - 09/18/2022 1:00 PM EDT BARIATRIC SURGERY PROGRAM NUTRITION EDUCATION 2nd Pre-Operative Visit Shared Medical Appointment Liss Mosley attended a 2 hour shared medical appointment today with the bariatric surgery program dietitian and nurse practitioner. Ms. Mosley is a female with morbid obesity who has been referred for nutrition evaluation and diet instruction in anticipation of bariatric surgery. Previous conservative attempts at weight loss through dieting have been unsuccessful over the half-way. Advised patient that bariatric surgery is a weight loss tool not a solution; and ultimately weight loss will be achieved through proper eating and exercise habits. Patient was given a copy of the program handbook at the initial appointment which includes specific information on all nutrition recommendations and guidelines. Pt instructed on importance of following the Pre-operative Surgical Diet. Failure to do so may result in poor pre-surgical weight loss and may result in surgery not being performed. Liss was given the opportunity to ask questions and all questions were answered. She was also given contact information for further nutrition questions. Nutrition Topics Covered at Today's Appointment: Pre-operative Surgical Diet Purpose of diet Appropriate foods Protein goals Carbohydrate goals Calorie goals Keeping a food log Hydration and Appropriate Beverages Post-Operative Diets (Stages I-IV) Importance of following diet stages Appropriate foods Sample Menus Vitamin/Mineral Supplementation Common Food Intolerances Dumping Syndrome Sugar Alcohols Physical Activity Weight Regain Habits of Successful Bariatric Surgery Patients The appointment consisted of 60 minutes of group education and counseling. * Mellisa Rowland APRN - 09/18/2022 1:00 PM EDT BARIATRIC SURGERY PROGRAM [place], [place] [id number] Reason for visit: [facility] for up coming bariatric surgery Liss attended a comprehensive group pre-operative class today, which included discussion of pre and post operative instructions included in the [facility] Bariatric Surgery Program Education Handbook. The nutrition component of the class was taught by the BSP RD. Patient completed health update form. No new medical issues/ED visit. Medications/allergies are reviewed, otherwise today's visit was group visit. Surgery info: Patient is scheduled for laparoscopic sleeve gastrectomy on 10/08/[address] Borrero. Pre-Bariatric Surgery Obesity related medical issues: Problem Baseline issue if checked Comments Diabetes/prediabetes/insulin resistance [] Taking Metformin for weight loss Metabolic syndrome or PCOS [] HTN [x] Taking Lisinopril GERD [] During only Hyperlipidemia [] TESSA [x] Using CPAP with 100% compliance Musculoskeletal issues [x] OA knees, s/p R TKR, back pain Liver Disease [] Other [] Post Bariatric Surgery Medications: Extended VTE prophylaxis post surgery Indicated, to be started at discharge. Ursodiol gallstone prophylaxis Indicated, to be prescribed at discharge. PPI ulcer prophylaxis Indicated, to be prescribed at discharge. Contraception postmenopausal WT (lbs) BMI HT Highest wt Initial Pre-op visit 08/19/22 274 45.7 5'5 Post-op WT (lbs) BMI %EBW lost Preop labs:labs completed. Prescriptions provided at today's visit: none. Bariatric Surgery Program Pathway and review of status with the requirements of the Bariatric Surgery Program 1. Education: Pt previously attended a Introduction to the [facility] Bariatric Surgery Program seminar,a two hour meeting that provides a program overview as well as expectations. The [facility] Bariatric Surgery Program Educational seminar requirement has been met. The BSP Educational Handbook was providedat visit #1. 2. Pre-operative programmatic evaluations have been done, as noted in previous pathway review. 3. Bariatric Surgery Program evaluations with the surgeon and dietitian have taken place. Liss has been approved to proceed with surgery by surgeon. 6. Surgical consultation has taken place Next steps in pathway: During hospitalization for bariatric surgery, a standard bariatric surgery order set is followed. Routine post-operative follow up with labwork is done at months 1,4,12 and 24, yearly thereafter, and PRN. High risk patients are followed more frequently. Some of the topics reviewed during group discussion today included: day of surgery and post-op routine care/ locations: Admissions/SDP/PACU/07/01/ [place] units medications that increase the risk of bleeding including NSAIDs and anticoagulants to be avoided per guidelines pre and post-operatively DVT/VTE prevention and signs of DVT/PE. Inpatient management for VTE prevention: venodynes, ambulation, Enoxaparin 40 units BID during inpatient stay. Indications for extended Enoxaparin 10 days post discharge: A. patients with BMI >60 or prior VTE OR B. 2 or more of the following: age >50, BMI >50, male gender, sleep apnea, varicose veins, venous insufficiency, history of oral contraceptive or hormone or post-menopausal hormone replacement use within 30 days of surgery, and recent smoking guidelines for patients treated with oral anticoagulants per Thrombosis Clinic diabetes and hypertension monitoring during pre-op diet and post-operatively. Diuretic therapy is held to avoid risk of dehydration unless patient is symptomatic. signs and symptoms of infection as well as emergency signs and symptoms were reviewed common post-operative complaints management of sleep apnea during hospitalization and post operatively. The importance of post-operative follow-up with Sleep Center after weight loss was stressed. recommendations for psychiatric medications: should continue uninterrupted after surgery activity post surgery/ return to work recommendations routine BSP post-operative follow-up: 3 weeks. 4 months, 12 months and yearly for LIFE routine Primary Care post-operative follow up: at 10-14 days after surgery to monitor chronic health problems such as diabetes and hypertension, since the requirement for antihypertensive and diabetic medications may decrease or be discontinued Patient advised to contact our office if they develop COVID sx or test positive for COVID. Discussed increased risk of respiratory complications s/p COVID infection. A preliminary copy of the discharge instructions was provided, which is also available in the patient handbook. Liss was given the opportunity to ask questions, and all questions were answered. Time spent in counselin minutes documented in this encounter Plan of Treatment Upcoming Encounters Date Type Department Care Team (Late st Contact Info) Description 04/13/2024 3:20 PM EST Office Visit Dermatology at [facility] [address] [place] [address] Felicitas Llanes MD [facility] DR MODESTA [facility] [address] 04/26/2024 4:00 PM EST Office Visit Nephrology [place] [address] Denia Xiao APRN [facility] [place] [address] documented as of this encounter Goals Goal Patient Goal Type Associated Problems Recent Progress Patient-Stated? Author movement Exercise No Arsh So Note: Try cardio chair exercises. Health Quality Facilitator will send links to videos. Self monitoring [...] the pause (STOP, and urge surfing. Health Quality Facilitator will mail hand-outs. documented as of this encounter Visit Diagnoses Diagnosis Encounter for pre-bariatric surgery counseling and education documented in this encounter Care Teams Chair Relationship Specialty Start Date End Date Carolyn Christianson APRN PCP - General Family Medicine 12/21/20 10/02/22 documented as of this encounter
--- OUTSIDE RECORDS SUMMARY | 2024-03-20 11:52 | XMS_ITS | Encounter Summary ---
[place] [address] Care Team Providers Care Director Of Quality Name Role Phone Carolyn Christianson APRN Primary Care Provider [phone] Encounter Details Date Type Department Care Team (Late st Contact Info) Description 07/16/2022 Telephone [place] [id number] Tamara Knight Social History Tobacco Use Types [...] * Telephone Encounter - Tamara Knight - 07/16/2022 8:12 AM EDT Returned call to Liss from [facility] left my # for her to call me back documented in this encounter Plan of Treatment Upcoming Encounters Date Type Department Care Team (Late st Contact Info) Description 04/13/2024 3:20 PM EST Office Visit Dermatology at [facility] [address] [place] [address] Felicitas Llanes MD [facility] [address] [place] [address] 04/26/2024 4:00 PM EST Office Visit Nephrology [place] [address] Denia Xiao APRN [facility] [place] [address] documented as of this encounter Goals Goal Patient Goal Type Associated Problems Recent Progress Patient-Stated? Author movement Exercise No Arsh So Note: Try cardio chair exercises. Health General Office Assistant will send links to videos. Self [...] for more food at the 20 minute rebkea self-awareness Lifestyle No Arsh So Note: Practice mindful eating, the pause (STOP, and urge surfing. Health General Office Assistant will mail hand-outs. documented as of this encounter Visit Diagnoses Not on filedocumented in this encounter Care Teams Director Of Quality Relationship Specialty Start Date End Date Carolyn Christianson APRN PCP - General Family Medicine 12/21/20 10/02/22 documented as of this encounter
--- OUTSIDE RECORDS SUMMARY | 2024-03-20 11:52 | XMS_ITS | Encounter Summary ---
Author Organization [facility] Address [facility] [place] [address] Care Team Providers Care Packaging Machine Operator Name Role Phone Carolyn Christianson APRN Primary Care Provider [phone] Encounter Details Date Type Department Care Team (Late st Contact Info) Description 06/19/2022 1:30 PM EDT TH Visit (TeleHealth) [place] [phone] Denia Khalil MD [facility] [address] [place] [address] Class 3 severe obesity with body mass index (BMI) of 45.0 to 49.9 in adult, unspecified obesity type, unspecified whether serious comorbidity present (Primary Dx); Exercise counseling Social History Tobacco Use Types Packs/Day Years [...] Sign Reading Time Taken Comments Blood Pressure - - Pulse - - Temperature - - Respiratory Rate - - Oxygen Saturation - - Inhaled Oxygen Concentration - - Weight 124.7 kg (275 lb) 06/19/2022 1:47 PM EDT self report Height - - Body Mass Index 45.76 06/10/2022 1:00 PM EDT documented in this encounter Patient Instructions * Patient Instructions* Denia Khalil MD - 06/19/2022 1:30 PM EDT If you see 266# or less on your weigh in at home, message me so that we can set up an appointment for a weight check in clinic (which will be necessary to document the 5% loss required by your insurance) documented in this encounter Progress Notes * Denia Khalil MD - 06/19/2022 1:30 PM EDT [facility] Patient Name: Liss Mosley Date of : 1965 Age: 56 y.o. Carolyn Christianson APRN Thank you for referring Liss Mosley to the [facility]. I saw her for a follow-up visit today, 06/19/22. Please see changes to care as documented in the assessment and plan. CHIEF COMPLAINT: F/u for treatment of WHO Class 3 / EOSS Stage 2 Obesity defined by initial BMI and comorbidities Depression, OA, TESSA and Thyroid dz (Ning's thyroiditis), elevated BP without dx.. This is Visit #6 [facility] visit for this 56 y.o. patient. Weight gain due to: menopause/puberty Why is now the time to try again? I feel like crap - achy joints/hard to get up and down Barriers to success: Pain and Other:lack of desire to cook for one Initial weight 04/13/21: 305 Initial Body mass index is 50.75 kg/m??. Goal weight: 150-175# - last under 200# 10 years ago. 10% loss: 275? Other goals: less achey is the biggest goal Presurg Bariatric goal weight : 266# Today's weight: 275 Change since prior: -6.75# 9.8% weight loss 06/19/22 [facility] Team: Denia Khalil MD, Susan Ulloa RD and Arsh So, Health Desk Operator HPI TODAY PATIENT REPORTS: IF for 24hour one day per week - restarted 2-3 weeks ago. Other days: 3 meals per day, 1 snack per day. Nutritonist at [facility] talked to boss, so she can bring her own lunches now, since last week. 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 She continues this but brings her own food AOM: Currently taking: metformin 2000mg daily. Topomax, stopped last - did not seem to help her, so after it ran out in Mar, she stopped - Changed to fasting instead. AOM HX: Topiramate -Started 04/25/22; stopped late May: up to 50mg bid, did not seem to help and caused grogginess Trulicity Starting 12/20/21 Starting weight: 281; NO weight loss on Trulicity at all. metformin Started: 06/07/2021 Starting weight: 296 lbs Lost 16# at 7 weeks, Factors contributing to decision making: NO hx of pancreatitis, NO Fam or personl hx of medullary thyroid ca Low satiation COMORBIDITIES: Obesogenic meds: levocetirizine/takes 2 allergy meds - allergies still poorly controlled REVIEW OF LABS/DIAGNOSIS SINCE LAST VISIT none [] I reviewed past / interim records including notes and labs. ONGOING INTERVENTIONS (Topics discussed today in BOLD): For specific behavioral interventions, see goals Nutrition: specific recommendations per HILLARY, Arlin ; see above; tracking again Behavior: Eating related to boredom/emotions, Grazing, Portion control - portion control still a struggle; cravings/desire to munch have improved. Trying to eat slower, take smaller portions with smaller plates. Made suggestions to eat with nondominant hadn and attend next month's Pattern Smashing lecutre Activity: bike twice per day - 5-7 min each. Started working with bands for a bit - but is out of the habit again now. Considering joining a gym b/c she can get reimbursed by insurance. Notices lack of strength. Discussed evidence for strength training Barriers: []needs cardiac eval []injury/pain preventing activity right now Stress Management:no concerns Sleep: no concerns Self-monitoring: Food log Pathway: [x]Individual [x]Monthly Lifestyle Classes VITAL SIGNS: Vitals: 06/19/22 1347 Weight: 124.7 kg (275 lb) Body mass index is 45.76 kg/m??. PHYSICAL EXAM: Gen: Alert and appropriate, NAD. LABS: Lab Results Component Value Date NA 140 (External Lab) 04/20/2021 K 4.2 (External Lab) 04/20/2021 CL 102 (External Lab) 04/20/2021 CO2 28 (External Lab) 04/20/2021 BUN 32 (H) 12/24/2021 CREATININE 0.8 12/24/2021 GLUCOSE 78 05/12/2018 GLUCFASTING 82 12/24/2021 CALCIUM 8.6 (External Lab) 04/20/2021 ESTGFR 85.35 12/24/2021 Lab Results Component Value Date CHLPL 241 (ExtH) 04/20/2021 HDL 57 (External Lab) 04/20/2021 TRIG 101 (External Lab) 04/20/2021 LDLCHOL 164 (ExtH) 04/20/2021 Lab Results Component Value Date HA1C 5.4 12/24/2021 HA1C 5.6 (External Lab) 04/20/2021 Lab Results Component Value Date LABINSU 26.7 (External Lab) 04/20/2021 CAMMIE IR 6.4 Lab Results Component Value Date GLUCFASTING 82 12/24/2021 ASSESSMENT AND PLAN Liss Mosley was seen in follow up today for ongoing obesity, not yet at treatment goal [x] with improvement [] without change. Goals and treatment options were discussed. Continue medical management and lifestyle changes. FACTORS CONTRIBUTING TO OBESITY Obesogenic meds: Antihistamine Plan: No change at this time - unlikely that she will be controlled off meds Co-morbidities addressed: Insulin resistance based on elevated CAMMIE IR AOM: Continue metformin 2000mg Trying to lose down to 266# to be eligible for surgery. Diagnoses and all orders for this visit: Class 3 severe obesity with body mass index (BMI) of 45.0 to 49.9 in adult, unspecified obesity type, unspecified whether serious comorbidity present Exercise counseling Return for follow-up as scheduled. documented in this encounter Plan of Treatment Upcoming Encounters Date Type Department Care Team (Late st Contact Info) Description 04/13/2024 3:20 PM EST Office Visit Dermatology at [facility] [address] [place] [phone] Felicitas Llanes MD [facility] [address] [place] [address] 04/26/2024 4:00 PM EST Office Visit [place] [address] [address] X[address]N [facility] [place] [address] documented as of this encounter Goals Goal Patient Goal Type Associated Problems Recent Progress Patient-Stated? Author movement Exercise No Arsh So Note: Try cardio chair exercises. Health Desk Operator will send links to videos. Self [...] the pause (STOP, and urge surfing. Health Desk Operator will mail hand-outs. documented as of this encounter Visit Diagnoses Diagnosis Class 3 severe obesity with body mass index (BMI) of 45.0 to 49.9 in adult, unspecified obesity type, unspecified whether serious comorbidity present- Primary Exercise counseling documented in this encounter Care Teams Packaging Machine Operator Relationship Specialty Start Date End Date Carolyn Christianson APRN PCP - General Family Medicine 12/21/20 10/02/22 documented as of this encounter
--- OUTSIDE RECORDS SUMMARY | 2024-03-20 11:53 | XMS_ITS | Encounter Summary ---
[facility] [place] [address] Care Team Providers Care Implementation Services Analyst Name Role Phone Carolyn Christianson APRN Primary Care Provider [phone] Encounter Details Date Type Department Care Team (Late st Contact Info) Description 06/06/2022 Telephone [place] [phone] Matti Darnell Social History Tobacco Use Types Packs/Day Years [...] encounter Miscellaneous Notes * Telephone Encounter - Marycarmen Sanchezludmila Winn - 06/07/2022 1:15 PM EST Patient called back in and I rescheduled her for July 09 ([facility]'s first opening). She denies canceling the appt stating it was canceled by our department, so not sure what happened there. She is concerned she has to have a May appt, appt on the waitlist. [facility] please let araw if you want to make any room for pt sooner in May. * Telephone Encounter - Matti Darnell - 06/06/2022 12:20 PM EST Inbound/Outbound: Inbound Spoke to Patient/Left Message: Spoke to patient. Notes: Inbound call from patient stating she was under the impression that she had a visit scheduled today with Dr. Lowry, but she doesn't see it on her schedule. Advised patient that it looks like she was originally scheduled, but moved forward into May for earlier visit. It appears that no visit was booked after last visit.Patient requested to book per last visit note, first available in June. Patient was not interested in scheduling first available for wait list and would like a call back to fit her in in May. Advised patient I will send to provider and scheduling team. Return in about 4 weeks (around 06/13/2022) for 30 min, zoom. documented in this encounter Plan of Treatment Upcoming Encounters Date Type Department Care Team (Late st Contact Info) Description 04/13/2024 3:20 PM EST Office Visit Dermatology at [address] [address] Felicitas Llanes MD [facility] [address] [place] [address] 04/26/2024 4:00 PM EST Office Visit [place] [address] Denia Xiao APRN [facility] [place] [address] documented as of this encounter Goals Goal Patient Goal Type Associated Problems Recent Progress Patient-Stated? Author movement Exercise No Arsh So Note: Try cardio chair exercises. Health Certified Drug Counselor will send links to videos. Self monitoring [...] the pause (STOP, and urge surfing. Health Certified Drug Counselor will mail hand-outs. documented as of this encounter Visit Diagnoses Not on filedocumented in this encounter Care Teams Implementation Services Analyst Relationship Specialty Start Date End Date Carolyn Christianson APRN PCP - General Family Medicine 12/21/20 10/02/22 documented as of this encounter
--- OUTSIDE RECORDS SUMMARY | 2024-03-20 11:53 | XMS_ITS | Encounter Summary ---
Author Organization [facility] Address [facility] [place] [address] Care Team Providers Care Photo Printer Name Role Phone Carolyn Christianson APRN Primary Care Provider [phone] [phone] Encounter Details Date Type Department Care Team (Late st Contact Info) Description 03/26/2022 Notes Only Weight and Wellness at [facility] [address] [place] [phone] Denia Khalil MD [facility] [address] [place] [address] Social History Tobacco Use Types Packs/Day Years [...] as of this encounter Progress Notes * Denia Khalil MD - 03/26/2022 11:00 AM EST From Surgery team regqarding requirements for bariatric surgery: Upon review with the team the best way to handle this patient is for her to use the visits beginning 12/20/2021 as her starting point. ??She must have the 6 months of consecutive visits and a 5 % pre-operative weight loss requirement. ??The team is using 280 as her start weight with requirement of 14 pounds and we must have a documented weight of 266 at minimum in order for [facility] to approve her case. ??She will need to a May visit in order to satisfy the requirements. ?? documented in this encounter Plan of Treatment Upcoming Encounters Date Type Department Care Team (Late st Contact Info) Description 04/13/2024 3:20 PM EST Office Visit Dermatology at [place] [address] [place] [address] Felicitas Llanes MD [facility] [address] [address] 04/26/2024 4:00 PM EST Office Visit [place] [address] Denia Xiao APRN [facility] [place] [place] [address] documented as of this encounter Goals Goal Patient Goal Type Associated Problems Recent Progress Patient-Stated? Author movement Exercise No Arsh So Note: Try cardio chair exercises. Health Lab Specialist will send links to videos. Self [...] the pause (STOP, and urge surfing. Health Lab Specialist will mail hand-outs. documented as of this encounter Visit Diagnoses Not on filedocumented in this encounter Care Teams Photo Printer Relationship Specialty Start Date End Date Carolyn Christianson APRN PCP - General Family Medicine 12/21/20 10/02/22 documented as of this encounter
--- OUTSIDE RECORDS SUMMARY | 2024-03-20 11:53 | XMS_ITS | Encounter Summary ---
Author Organization [facility] Address [facility] [place] [address] Care Team Providers Care Sausage Linker Name Role Phone Carolyn Christianson APRN Primary Care Provider [phone] [phone] Encounter Details Date Type Department Care Team (Late st Contact Info) Description 09/20/2021 4:30 PM EDT TH Visit (TeleHealth) Weight and Wellness at [address] [phone] Denia Khalil MD [facility] [address] MODESTA [place] [address] Class 3 severe obesity with body mass index (BMI) of 40.0 to 44.9 in adult, unspecified obesity type, unspecified whether serious comorbidity present (Primary Dx); Insulin resistance; Dietary counseling and surveillance Social History Tobacco Use Types Packs/Day Years [...] - Inhaled Oxygen Concentration - - Weight 120.2 kg (265 lb) 09/20/2021 4:58 PM EDT self report Height - - Body Mass Index 44.1 08/20/2021 4:32 PM EDT documented in this encounter Patient Instructions * Patient Instructions* Denia Khalil MD - 09/20/2021 4:54 PM EDT Try eating with your left hand to slow eating. These are some optional groups you might consider attending. If you are interested, please send a [employer] message to our material scheduler. Tell her that you would like to attend Monthly Lifestyle Class. Include your choice of day - Friday or Friday and the month, of course. You can also call our office at [phone] to schedule. Finally, you can cut and paste the message below to help get the information to our material scheduler efficiently. [facility] Monthly Lifestyle Classes visits Expands on and boosts the education provided by [facility] with monthly lectures on a variety of health topics that contribute to successful weight loss and maintenance. It is appropriate for any patient who cannot commit to a block of weekly visits. Opt in to meetings by making an appointment with our material scheduler Fri of the month at 5:30-6:30 Fri of the at 12:00-1:00 Month Topic Presenters Hermann When Weight Loss Stalls & How We Can Help Provider Team Fe Mindfulness & Self Compassion Behavioral Health Team May Sleep and Health Provider Team spring with Plant Forward Dietary Team July Cravings Behavioral Health Team August Happy Healthy Gut (Microbiome) Dietary Team September Habit Loops - Pattern Smashing Behavioral Health Team October Meal Timing Dietary or Provider Team Sept Ramping Up Your Exercise Coaching Team Oct Scary Stress Provider Team Jan Survival Dietary Team Dec Staying Motivated - In the Spirit of Health Dietary Team Messages to copy and send to our material scheduler: I would like to attend Monthly Lifestyles Classes in the month(s) of (write in month): Please schedule me for (check one) [] The first Fri at 5:30 OR [] The third Friday at noon . documented in this encounter Progress Notes * Denia Khalil MD - 09/20/2021 4:30 PM EDT Patient provided verbal consent prior to initiation of this telemedicine encounter and expressed understanding that the telemedicine visit will be billed similar to a clinic visit. In addition, privacy and MDM are consistent with an in-person visit. Pt was seen via [x] Video [] phone [facility] [place] Patient Name: Liss Mosley Date of : 1965 Age: 56 y.o. Carolyn Christianson APRN Thank you for referring Liss Mosley to the [facility] Center. I saw her for a follow-up visit today, 09/22/21. Please see changes to care as documented in the assessment and plan. CHIEF COMPLAINT: F/u for treatment of WHO Class 3 / EOSS Stage 2 Obesity defined by initial BMI and comorbidities Depression, OA, TESSA and Thyroid dz (Ning's thyroiditis), elevated BP without dx.. This is Visit #3 [facility] visit for this 56 y.o. patient. Weight [...] goals: less achey is the biggest goal Today's weight: 265 Change since prior: -15# 13% weight loss 09/22/21 [facility] Team: Denia Khalil MD, Arlin Mac RD and Arsh So, Health Manager Meeting HPI TODAY PATIENT REPORTS: TKA a few days ago Restarted metformin since last visit b/c cravings returned when she trialed off. AOM: Currently taking: metformin 2000mg daily. has chronic intermittent diarrhea, no change with metformin. No cravings. No other SE AOM HX: metformin Started: 06/07/2021 Starting weight: 296 lbs Lost 16# at 7 weeks, Factors contributing to decision making: NO hx of pancreatitis, NO Fam or personl hx of medullary thyroid ca Low satiation COMORBIDITIES ADDRESSED: Obesogenic meds: levocetirizine/takes 2 allergy meds - allergies still poorly controlled IR REVIEW OF LABS/DIAGNOSIS SINCE LAST VISIT none [] I reviewed past / interim records including notes and labs. ONGOING INTERVENTIONS (Topics discussed today in BOLD): For specific behavioral interventions, see goals Nutrition: specific recommendations per RD, Arlin ; 1-2 glasses of wine per day Discussed ETOH consumption at length at prior visti - recommendations limit ETOH to one serving pernight for women. Serving 5 oz. Pt understands that this is important for overall health. Additionally, if she is hungry, she should eat - choosing something nourishing - can try cheese and fruit OR nuts/dark chocolate/fruit. If she is not hungry, she does not HAVE to eat all of the calories left. Pt states she will address this by I will add nuts back in and she will limit wine consumption. Behavior: Eating related to boredom/emotions, Grazing, Portion control - portion control still a struggle; cravings/desire to munch have improved. Trying to eat slower, take smaller portions with smaller plates. Made suggestions to eat with nondominant hadn and attend next month's Pattern Smashing lecutre Activity: See goals Barriers: []needs cardiac eval []injury/pain preventing activity right now Stress Management:no concerns Sleep: no concerns Self-monitoring: Food log Pathway: [x]Individual [x]Monthly Lifestyle Classes VITAL SIGNS: Vitals: 09/20/21 1658 Weight: 120.2 kg (265 lb) Body mass index is 44.1 kg/m??. PHYSICAL EXAM: Gen: Alert and appropriate, NAD. LABS: Lab Results Component Value Date NA 140 (External Lab) 04/20/2021 K 4.2 (External Lab) 04/20/2021 CL 102 (External Lab) 04/20/2021 CO2 28 (External Lab) 04/20/2021 BUN 26 (ExtH) 04/20/2021 CREATININE 1 (External Lab) 04/20/2021 GLUCOSE 78 05/12/2018 GLUCFASTING 97 (External Lab) 04/20/2021 CALCIUM 8.6 (External Lab) 04/20/2021 ESTGFR 57.15 (External Lab) 04/20/2021 Lab Results Component Value Date CHLPL 241 (ExtH) 04/20/2021 HDL 57 (External Lab) 04/20/2021 TRIG 101 (External Lab) 04/20/2021 LDLCHOL 164 (ExtH) 04/20/2021 Lab Results Component Value Date HA1C 5.6 (External Lab) 04/20/2021 Lab Results Component Value Date LABINSU 26.7 (External Lab) 04/20/2021 CAMMIE IR 6.4 Lab Results Component Value Date GLUCFASTING 97 (External Lab) 04/20/2021 ASSESSMENT AND PLAN Liss Mosley was seen in follow up today for ongoing obesity, not yet at treatment goal [x] with improvement [] without change. Goals and treatment options were discussed. Continue medical management and lifestyle changes. FACTORS CONTRIBUTING TO OBESITY Obesogenic meds: Antihistamine Plan: No change at this time - unlikely that she will be controlled off meds Co-morbidities addressed: Insulin resistance Mild IR AOM: Continue metformin 2000mg, discussed option of appetite suppressant given her challenge with portion control, but this does not seem to be deterring weight loss-no change/addition today. Diagnoses and all orders for this visit: Class 3 severe obesity with body mass index (BMI) of 40.0 to 44.9 in adult, unspecified obesity type, unspecified whether serious comorbidity present Insulin resistance Dietary counseling and surveillance Return in about 3 months (around 12/21/2021) for MD Clinic, + TEJA//Monthly Lifestyle - September/Friday. documented in this encounter Plan of Treatment Upcoming Encounters Date Type Department Care Team (Late st Contact Info) Description 04/13/2024 3:20 PM EST Office Visit Dermatology at [facility] [address] [place] [address] Felicitas Llanes MD [facility] DR MODESTA [place] [address] 04/26/2024 4:00 PM EST Office Visit [place] [address] Denia Xiao, SEASONAL DELIVERY DRIVER [facility] [place] [address] documented as of this encounter Goals Goal Patient Goal Type Associated Problems Recent Progress Patient-Stated? Author movement Exercise No Arsh So Note: Try cardio chair exercises. Health Manager Meeting will send links to videos. Self monitoring Lifestyle On track(2021 10:00 AM EST) No Denia Khalil MD Note: Keep food log until you are seen by the dieititian. Record everything you eat or drink, include time eaten and any emotional changes that are significant. Actrivity Lifestyle No Denia hKalil MD Note: Open your yoga rusty and [...] more food at the 20 minute rebeka documented as of this encounter Visit Diagnoses Diagnosis Class 3 severe obesity with body mass index (BMI) of 40.0 to 44.9 in adult, unspecified obesity type, unspecified whether serious comorbidity present- Primary Insulin resistance Dysmetabolic Syndrome X Dietary counseling and surveillance Dietary surveillance and counseling documented in this encounter Care Teams Sausage Linker Relationship Specialty Start Date End Date Carolyn Christianson APRN PCP - General Family Medicine 12/21/20 10/02/22 documented as of this encounter
--- OUTSIDE RECORDS SUMMARY | 2024-03-20 11:53 | XMS_ITS | Encounter Summary ---
Author Organization [facility] [place] [address] Care Team Providers Care Machine Welder Name Role Phone Carolyn Christianson APRN Primary Care Provider [phone] Encounter Details Date Type Department Care Team (Latest Contact Info) Description 02/28/2022 Travel Social History Tobacco Use Types Packs/Day [...] 3:20 PM EST Office Visit Dermatology at [facility] [address] [place] [address] Felicitas Llanes MD [facility] DR MODESTA [place] [address] 04/26/2024 4:00 PM EST Office Visit [place] [address] Denia Xiao APRN [facility] [place] [address] documented as of this encounter Goals Goal Patient Goal Type Associated Problems Recent Progress Patient-Stated? Author movement Exercise No Arsh So Note: Try cardio chair exercises. Health Finishing Area Operator will send links to videos. Self [...] the pause (STOP, and urge surfing. Health Finishing Area Operator will mail hand-outs. documented as of this encounter Visit Diagnoses Not on filedocumented in this encounter Care Teams Machine Welder Relationship Specialty Start Date End Date Carolyn Christianson APRN PCP - General Family Medicine 12/21/20 10/02/22 documented as of this encounter
--- OUTSIDE RECORDS SUMMARY | 2024-03-20 11:53 | XMS_ITS | Encounter Summary ---
Author Organization [facility] Address [facility] [place] [address] Care Team Providers Care Viscose Cellar Charge Hand Name Role Phone Carolyn Christianson APRN Primary Care Provider [phone] [phone] Encounter Details Date Type Department Care Team (Late st Contact Info) Description 04/25/2022 4:30 PM EST Office [place] [address] Denia Khalil MD [facility] DR MODESTA [place] [address] Class 3 severe obesity with body mass index (BMI) of 45.0 to 49.9 in adult, unspecified obesity type, unspecified whether serious comorbidity present (Primary Dx); Insulin resistance Social History Tobacco Use Types [...] Sign Reading Time Taken Comments Blood Pressure 171/79 04/25/2022 4:24 PM EST Pulse 57 04/25/2022 4:24 PM EST Temperature - - Respiratory Rate - - Oxygen Saturation - - Inhaled Oxygen Concentration - - Weight 127.8 kg (281 lb 12.8 oz) 04/25/2022 4:24 PM EST Height 165.1 cm (5' 5) 04/25/2022 4:24 PM EST Body Mass Index 46.89 04/25/2022 4:24 PM EST documented in this encounter Progress Notes * Denia Khalil MD - 04/25/2022 4:30 PM EST Patient provided verbal consent prior to initiation of this telemedicine encounter and expressed understanding that the telemedicine visit will be billed similar to a clinic visit. In addition, privacy and MDM are consistent with an in-person visit. Pt was seen via [x] Video [] phone [facility] [place] Patient Name: Liss Mosley Date of : 1965 Age: 56 y.o. Carolyn Christianson APRN Thank you for referring Liss Mosley to the Weight and Wellness [place]. I saw her for a follow-up visit today, 04/25/22. Please see changes to care as documented in the assessment and plan. CHIEF COMPLAINT: F/u for treatment of WHO Class 3 / EOSS Stage 2 Obesity defined by initial BMI and comorbidities Depression, OA, TESSA and Thyroid dz (Ning's thyroiditis), elevated BP without dx.. This is Visit #6 [facility] visit for this 56 y.o. patient. [...] Bariatric goal weight : 266# Today's weight: 281.75 Change since prior: -1# [facility] Team: Denia Khalil MD, Arlin Mac RD and Arsh So, Health Information Systems Coordinator HPI TODAY PATIENT REPORTS: Went to [facility] info session. Ready for psych eval Off Trulicity x 1 week, Could not tolerate 4.5, can't get 3mg. NO weight loss on Trulicity at all. Son's family an dtheir dog have been living with her as they put addition on their house. Eating was really challenging b/c of family being there. 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 She is supposed to eat with them to model trying a little of everything and is not sure if a letter indicating that she needs to follow a prescribed diet would help She has talked to her cabin supervisor who advised she pick at the food and then she can eat whatever she bring separately AOM: Currently taking: metformin 2000mg daily. trulicity 1.5mg. No ASE but no sense of change of hunger or satiation AOM HX: Trulicity Starting 12/20/21 Starting weight: 281 metformin Started: 06/07/2021 Starting weight: 296 lbs [...] interventions, see goals Nutrition: specific recommendations per Arlin THORNTON ; see above; tracking again Behavior: Eating related to boredom/emotions, Grazing, Portion control - portion control still a struggle; cravings/desire to munch have improved. Trying to eat slower, take smaller portions with smaller plates. Made suggestions to eat with nondominant hadn and attend next month's Pattern Smashing lecutre Activity: See goals; bike twice per day - 5-7 min each. Has not been doing any strength Barriers: []needs cardiac eval []injury/pain preventing activity right now Stress Management:no concerns Sleep: no concerns Self-monitoring: Food log Pathway: [x]Individual [x]Monthly Lifestyle Classes Discussion 12/20/21: bariatric surgery process, r/b/se of incretins VITAL SIGNS: Vitals: 04/25/22 1624 BP: 171/79 BP Location (NBP): Left arm Patient Position: Sitting BP Cuff Sizes: Large Adult (32-43 cm) Pulse: 57 Weight: 127.8 kg (281 lb 12.8 oz) Height: 165.1 cm (5' 5) Body mass index is 46.89 kg/m??. PHYSICAL EXAM: Gen: Alert and appropriate, [...] on elevated CAMMIE IR AOM: Continue metformin 2000mg,start topiramate. Stop Trulicity. Trying to lose down to 266# to be eligible for surgery. No response to Trulicity, change class of drugs. Again suggested: Patient talk to work cabin supervisor to see if she can get a note indicating that she has to folloow a diet plan not inkeeping with that served to the children. Diagnoses and all orders for this visit: Class 3 severe obesity with body mass index (BMI) of 45.0 to 49.9 in adult, unspecified obesity type, unspecified whether serious comorbidity present - topiramate (Topamax) 25 mg Tablet; Take 1 tablet by mouth 2 times daily for 7 days, THEN 2 tablets 2 times daily for 23 days. Insulin resistance - topiramate (Topamax) 25 mg Tablet; Take 1 tablet by mouth 2 times daily for 7 days, THEN 2 tablets 2 times daily for 23 days. Return in about 6 weeks (around 06/06/2022) for MED CHECK - 15 AND f/u in 3 months. documented in this encounter Plan of Treatment Upcoming Encounters Date Type Department Care Team (Late st Contact Info) Description 04/13/2024 3:20 PM EST Office Visit Dermatology at [facility] [address] [place] [address] Felicitas Llanes MD [facility] DR MODESTA [place] [address] 04/26/2024 4:00 PM EST Office Visit [place] [address] Denia Xiao APRN [facility] [place] [address] documented as of this encounter Goals Goal Patient Goal Type Associated Problems Recent Progress Patient-Stated? Author movement Exercise No Arsh So Note: Try cardio chair exercises. Health Information Systems Coordinator will send links to videos. Self [...] the pause (STOP, and urge surfing. Health Information Systems Coordinator will mail hand-outs. documented as of this encounter Visit Diagnoses Diagnosis Class 3 severe obesity with body mass index (BMI) of 45.0 to 49.9 in adult, unspecified obesity type, unspecified whether serious comorbidity present- Primary Insulin resistance Dysmetabolic Syndrome X documented in this encounter Care Teams Viscose Cellar Charge Hand Relationship Specialty Start Date End Date Carolyn Christianson APRN PCP - General Family Medicine 12/21/20 10/02/22 documented as of this encounter
--- OUTSIDE RECORDS SUMMARY | 2024-03-20 11:53 | XMS_ITS | Encounter Summary ---
Author Organization [facility] Address [facility] [place] [address] Care Team Providers Care Fixed Route Bus Operator Name Role Phone Carolyn Christianson APRN Primary Care Provider [phone] Encounter Details Date Type Department Care Team (Latest Contact Info) Description 05/16/2022 3:30 PM EST TH Visit (TeleHealth) [place] [phone] Apolonia Lowry, PhD [facility] [address] MODESTA [place] [address] Class 3 severe obesity with body mass [...] Progress Notes * Apolonia Lowry, PhD - 05/16/2022 3:30 PM EST [facility] BARI[facility]GERY PSYCHOLOY FOLLOW UP NOTE N [facility] [address] Dept: [phone] Loc: [phone] 05/16/2022 3:35 PM Liss Mosley is a 56 y.o. female who was referred for evaluation and preparation for potential bariatric surgery.Liss was previously evaluated and concerns were raised about bariatric surgery readiness. Liss was seen for 30 minutes. Patient was alone, and was seen Telehealth. Liss Mosley gave permission for and was seen for today's appointment with a Telehealth visit. During this visit they were located at home in [place]. Liss Mosley is aware that for any urgent matter they can call [phone].. RECOMMENDATION BASED ON PSYCHOLOGICAL EVALUATION YELLOW - Based on the information gathered during this assessment, Liss Mosley would benefit from additional health behavior change before she is ready to proceed with surgery. Specifically, Liss would benefit from the following to assist with preparing for bariatric surgery: ?? Continue engaging in health promoting behaviors ?? Continue working with grounds crew supervisor on adjustments to work environment to support post bariatric surgery needs Continue behavioral changes, especially: ?? Sipping water. Use a sippy cup, freeze a partially filled bottle of water and sip as it melts, use a sports bottle with a pop-up lid, keep water available at all times, set timer to remind self totake sips if needed, don???t wait until you???re thirsty to drink The follow up plan is as follows: 4 wks SUMMARY The decision noted above is based [...] lbs Weight at previous evaluation: 280 lbs Current Weight as of 04/25/2022: 281 lbs Weight changes since evaluation: has been stable Progress towards weight loss goal of 266 lbs: poor PROBLEM EATING BEHAVIORS From previous evaluation: History of over eating (i.e., eating to the point of being uncomfortably full): yes If h/o over eating, last episode: Last week - triggered by sweets. Currently avoiding bringing these foods into her home 05/16/2022: History of over eating (i.e., eating to [...] during the week. Struggles on the weekend. 05/16/2022: ??? eating and drinking by 30 minutes: [...] rate since recent appointment with Susan Ulloa. Current implementation of habit changes: good MENTAL HEALTH UPDATE: Liss reported that overall she has been [...] boss on navigating bariatric needs post surgery. HEALTH BEHAVIORS From previous evaluation: Nicotine: former smoker, quit 31 years ago. Had 1 cigarette several months ago 05/16/2022: Nicotine: No recent cigarettes The assessment and plan for Liss Mosley are detailed at the beginning of this report. documented in this encounter Plan of Treatment Upcoming Encounters Date Type Department Care Team (Late st Contact Info) Description 04/13/2024 3:20 PM EST Office Visit Dermatology at [address] [address] Felicitas Llanes MD [facility] DR MODESTA [place] [address] 04/26/2024 4:00 PM EST Office Visit [place] [address] Denia Xiao APRN [facility] [place] [address] documented as of this encounter Goals Goal Patient Goal Type Associated Problems Recent Progress Patient-Stated? Author movement Exercise No Arsh So Note: Try cardio chair exercises. Health Medical Fee Clerk will send links to videos. Self [...] the pause (STOP, and urge surfing. Health Medical Fee Clerk will mail hand-outs. documented as of this encounter Visit Diagnoses Diagnosis Class 3 severe obesity with body mass index (BMI) of 45.0 to 49.9 in adult, unspecified obesity type, unspecified whether serious comorbidity present documented in this encounter Care Teams Fixed Route Bus Operator Relationship Specialty Start Date End Date Carolyn Christianson APRN PCP - General Family Medicine 12/21/20 10/02/22 documented as of this encounter
--- OUTSIDE RECORDS SUMMARY | 2024-03-20 11:53 | XMS_ITS | Encounter Summary ---
Author Organization [facility] Address [facility] [place] [address] Care Team Providers Care Tack Picker Name Role Phone Carolyn Christianson APRN Primary Care Provider [phone] [phone] Encounter Details Date Type Department Care Team (Latest Contact Info) Description 06/22/2021 3:30 PM EDT TH Visit (TeleHealth) Weight and Wellness at [address] [phone] Arlin Mac I, [facility] [place] [address] Obesity, unspecified classification, unspecified obesity type, unspecified [...] - Inhaled Oxygen Concentration - - Weight 131.3 kg (289 lb 8 oz) 06/22/2021 3:40 PM EDT Height 165.1 cm (5' 5) 06/22/2021 3:40 PM EDT Body Mass Index 48.18 06/22/2021 3:40 PM EDT documented in this encounter Patient Instructions * Patient Instructions* Arlin Mac RD - 06/22/2021 3:55 PM EDT Nutrition Goals: 1. Make eating window Noon-8 pm 2. In the evening when consider a snack choice, first ask AM I hungry, if I am hungry, how hungry; a typical snack is ~ 150-175 kcals (ie. Measured nuts and chocolate) 3. Plan a 4 pm snack - apple and peanut butter or hummus with veggies and triscuits or chips and salsa (~ 200 calorie) documented in this encounter Progress Notes * Arlin Mac RD - 06/22/2021 3:30 PM EDT Nutrition Intervention for Weight Management RD visit Assessment/Nutrition Diagnosis: Pt at increased nutritional risk related to excessive calorie intake and sub optimal physical activity resulting in overweight/obesity as evidenced by BMI and diet recall Telehealth / telephone visit conducted while patient was at home at the following address: [address] [place] [phone] Food Trackers: MyPlate consitently Pert. Meds: Metformin x 1 1-2 weeks Weight Today: Vitals 06/22/2021 Pulse Height (Welsh) 65 Height (Metric) 165.1 cm Weight (Welsh) 289 lbs 8 oz Weight (Metric) 131.316 kg BMI (Calculated) 48.17 kg/m2 Typical Dietary Intake: B: L: first meal soup homemade S: apple or banana and PB D: salad with chicken thigh and some cheese and emirati dressing S: wine Typical Beverages: 1-2 glasses of wine Previous Nutrition Goals: Goals ??? Actrivity Open your yoga rusty and see if you might be interested in trying this gentle form of movement to activate your muscles. ??? Nutrition Nutrition Goals: 1. Aim for one 24 hour fasting day per week - yes; successful with this intervntion 2. First meal after fasting to be between 400-500 calories - (palm size of protein, 1.5 cups veggies, 1/2 cup only of starch) 3. Avoid eating after 7 pm - challeneging 4. Track calories to aim for ~ 1,475 for weight loss - Use myOrder food tracker - PRE-Track as muchas possible 5. Aim to limit non-nutritive calories (for example chocolate and wine) to ~ 150 calories 6. Use measuring tools for accuracy ??? Nutrition 06/07/2021 ??? Self monitoring Keep food log until you are seen by the dieititian. Record everything you eat or drink, include time eaten and any emotional changes that are significant. Interview: Pt with a 17# weight loss x 9 weeks. Tracking consistently Nutrition Goals: 1. Make eating window Noon-8 pm 2. In the evening when consider a snack choice, first ask AM I hungry, if I am hungry, how hungry; a typical snack is ~ 150-175 kcals (ie. Measured nuts and chocolate) 3. Plan a 4 pm snack - apple and peanut butter or hummus with veggies and triscuts or chips and salsa (~ 200 calorie) Monitor/Evaluate: Will follow up in 2 months Aim for 5-10% weight loss from ABW x 3-6 months from initial visit Thank you Arlin Mac MS RD LD 30 minutes were spent in visit today, including contact with patient, chart review, and documentation documented in this encounter Plan of Treatment Upcoming Encounters Date Type Department Care Team (Late st Contact Info) Description 04/13/2024 3:20 PM EST Office Visit Dermatology at [facility] [address] [place] [address] Felicitas Llanes MD [facility] DR MODESTA [place] [address] 04/26/2024 4:00 PM EST Office Visit Ne[place] [address] Denia Xiao, MENTAL HEALTH CONSULTANT [facility] [place] [address] documented as of this encounter Goals Goal Patient Goal Type Associated Problems Recent Progress Patient-Stated? Author Self monitoring Lifestyle On track(2021 10:00 AM [...] as of this encounter Visit Diagnoses Diagnosis Obesity, unspecified classification, unspecified obesity type, unspecified whether serious comorbidity present documented in this encounter Care Teams Tack Picker Relationship Specialty Start Date End Date Carolyn Christianson, ALBA PCP - General Family Medicine 12/21/20 10/02/22 documented as of this encounter
--- OUTSIDE RECORDS SUMMARY | 2024-03-20 11:53 | XMS_ITS | Encounter Summary ---
Author Organization [facility] [place] [address] Care Team Providers Care Glass Mould Cleaner Name Role Phone Carolyn Christianson APRN Primary Care Provider [phone] [phone] Encounter Details Date Type Department Care Team (Latest Contact Info) Description 06/22/2021 4:30 PM EDT TH Visit (TeleHealth) Weight and Wellness at [address] [phone] Arsh So Obesity, unspecified classification, unspecified obesity type, unspecified [...] this encounter Patient Instructions * Patient Instructions* Arsh So - 06/29/2021 4:32 PM EDT It was good to talk with you Liss. I'll send you the hand-outs as we discussed so that you can practice mindful eating and try some gentle chair yoga. Be well, \ Arsh So Health Forging Dies Final Finisher documented in this encounter Progress Notes * Arsh So - 06/22/2021 4:30 PM EDT Liss Mosley is here today at the request of Dr. Yin for lifestyle coaching for weight control and overall health. FOLLOW UP VISIT 1. Clarify/revisit BIG WHY: feel better, more energy 2. Assess/review Strengths: knowledge 3. Review Healthy habits guidelines for exercise, sleep, and stress- see below 4. Teach SMART goals and practice setting one(connect to BIG WHY, pillars). Review specific goals if any from provider Goals ??? Actrivity Open your yoga rusty and see if you might be interested in trying this gentle form of movement to activate your muscles. ??? Nutrition Nutrition Goals: 06/22/21 1. Make eating window Noon-8 pm 2. In the evening when consider a snack choice, first ask AM I hungry, if I am hungry, how hungry; a typical snack is ~ 150-175 kcals (ie. Measured nuts and chocolate) 3. Plan a 4 pm snack - apple and peanut butter or hummus with veggies and triscuits or chips and salsa (~ 200 calorie) Nutrition Goals: 1. Aim for one 24 hour fasting day per week - yes; successful with this intervntion 2. First meal after fasting to be between 400-500 calories - (palm size of protein, 1.5 cups veggies, 1/2 cup only of starch) 3. Avoid eating after 7 pm - challeneging 4. Track calories to aim for ~ 1,475 for weight loss - Use Seelio food tracker - PRE-Track as muchas possible - 1200 calorie at lowest 5. Aim to limit non-nutritive calories (for example chocolate and wine) to ~ 150 calories - reviewed this goal today; will aim for 1 glass 6. Use measuring tools for accuracy - yes ??? Nutrition 06/07/2021 ??? Self monitoring Keep food log until you are seen by the dieititian. Record everything you eat or drink, include time eaten and any emotional changes that are significant. Exercise Knee pain makes it hard to move. Want to start more chair yoga and resistance bands Sleep Sleep is a challenge. I get muscle cramps that wake me up. Interested in meditation, progressive muscle relaxation. Stress Interested in yoga, meditation, mindfulness Self-monitoring What are you doing now? If no personal accountability process, what can you add? [x]Food log: [] daily [x] intermittent []Weigh-ins: [] daily [] weekly []Exercise log [x]Gratitude journal []Other: Food Behaviors (optional): Working on eating plan, seem to have extra calories at end of day Future follow-up with health executive coach will address identified areas of concern: [x] Exercise []Sleep [x]Stress [x]Accountability []Food Behaviors []Self-compassion Below are guidelines for optimal health that will help you, OVER TIME, to achieve. We do not expectyou to adopt everything all at once or make huge leaps. We don't even expect that you will achieve them all because nobody is perfect! Nutrition: Whole food, quality diet, more plants. (See the back page of your Welcome Book). This savanna general recommendation for all patients. Your dietitian and provider will help make more specificrecommendations for you if appropriate. Avoid drinking your calories in the form of fruit juice, soda pop or other sweetened beverages. Choose water. Activity: to maintain weight loss evidence supports 360-420 minutes per week (60min daily). Each week, 1 hour of this time should be divided into 2 or 3 sessions of resistance (weight) training. The rest would be cardio. We do not know the threshold for non-structured activity, but if you are taking about 10,000 steps daily, you may be meeting this goal for cardiac activity. You can build your activity level slowly and methodically. Your Weight&Wellness team will help you develop a plan that works for you. Sleep: 7-8 hours of restful sleep per night with minimal or no interruptions. If this is not happening, talk to your provider about how we can help. Self-monitoring: most people benefit from some form of accountability. This can be: food tracking- either in an rusty or on paper, monitoring weight daily or monthly, exercise tracking. Pick something to track. Stress management: managing stress comes in many different forms from meditation to exercise to simply increasing mindfulness throughout the day. Your health executive coach is well-equipped to guide you to find something to look forward to everyday. Eating behaviors: many people benefit from restricting the hours in which they eat. You can choose an eating window of 8-12 hours to start. Make a pact with yourself that you will not take in anything with caloric content outside this window. Your replanter may make further recommendations documented in this encounter Plan of Treatment Upcoming Encounters Date Type Department Care Team (Late st Contact Info) Description 04/13/2024 3:20 PM EST Office Visit Dermatology at [place] [address] [place] [address] Felicitas Llanes MD [facility] DR MODESTA [place] [address] 04/26/2024 4:00 PM EST Office Visit [place] [address] Denia Xiao APRN [facility] [place] [address] documented as of this encounter Goals Goal [...] present documented in this encounter Care Teams Glass Mould Cleaner Relationship Specialty Start Date End Date Carolyn Christianson APRN PCP - General Family Medicine 12/21/20 10/02/22 documented as of this encounter
--- OUTSIDE RECORDS SUMMARY | 2024-03-20 11:53 | XMS_ITS | Encounter Summary ---
Author Organization [facility] [place] [address] Care Team Providers Care Administrative Dietitian Name Role Phone Carolyn Christianson APRN Primary Care Provider [phone] [phone] Reason for Visit * Reason Onset Date Comments Appointment 11/08/2021 Encounter Details Date Type Department Care Team (Late st Contact Info) Description 11/08/2021 Telephone Weight and Wellness at [address] [phone] Yuliana Tatum V Appointment Social History Tobacco Use Types Packs/Day Years [...] encounter Miscellaneous Notes * Telephone Encounter - Yuliana Tatum V - 12/26/2021 9:36 AM EDT LM x2 to schedule with Arsh. * Telephone Encounter - Yuliana Tatum V - 11/08/2021 1:54 PM EDT Return in about 4 weeks (around 12/05/2021) for Health Analysis Director, 1 mo, TOArsalan documented in this encounter Plan of Treatment Upcoming Encounters Date Type Department Care Team (Late st Contact Info) Description 04/13/2024 3:20 PM EST Office Visit Dermatology at [facility] [address] [place] [address] Felicitas Llanes MD [facility] [address] MODESTA [place] [address] 04/26/2024 4:00 PM EST Office Visit [place] [address] Denia Xiao APRN [facility] [place] [address] documented as of this encounter Goals Goal Patient Goal Type Associated Problems Recent Progress Patient-Stated? Author movement Exercise No Arsh So Note: Try cardio chair exercises. Health Analysis Director will send links to videos. Self monitoring [...] the pause (STOP, and urge surfing. Health Analysis Director will mail hand-outs. documented as of this encounter Visit Diagnoses Not on filedocumented in this encounter Care Teams Administrative Dietitian Relationship Specialty Start Date End Date Caroyln Christianson APRN PCP - General Family Medicine 12/21/20 10/02/22 documented as of this encounter
--- OUTSIDE RECORDS SUMMARY | 2024-03-20 11:53 | XMS_ITS | Encounter Summary ---
Author Organization [facility] [place] [address] Care Team Providers Care Jewelry Bearing Maker Name Role Phone Carolyn Christianson APRN Primary Care Provider [phone] [phone] Encounter Details Date Type Department Care Team (Latest Contact Info) Description 11/07/2021 11:00 AM EDT TH Visit (TeleHealth) Weight and Wellness at [address] [phone] Arsh So Class 3 severe obesity with body mass [...] Instructions * Patient Instructions* Arsh So - 11/07/2021 11:00 AM EDT It was good to talk with you Liss. It sounds like you are working out some of the meal challenges with your son. Your plan to talk with him and plan menus together is a good plan. How fun that your grandson likes to bake with you! I had a thought after our meeting...I have a hand-out that I'll send you to practice mindful eating and practicing a pause before you eat. You might find these exercises helpful. I look forward to hearing your thoughts on it. Be well, Arsh So Health Video Conference Specialist documented in this encounter Progress Notes * Arsh So - 11/07/2021 11:00 AM EDT Liss Mosley is here today at the request of Dr. Khalil for lifestyle coaching for weight control and [...] of movement to activate your muscles. ??? movement Try cardio chair exercises. Health Video Conference Specialist will send links to videos. ??? Nutrition Nutrition Goals: 08/20/21 1. On fast days male balanced plate 6 oucnces of protein, half the plate veggies and end with 1/2 cup starch 2. Plan for Outshine single serve bars at ~ 150 kcals 3. Take multi vitamins at 8pm before brushing teeth Nutrition Goals: 06/22/21 1. Make eating window Noon-8 pm successful 2. In the evening when consider a snack choice, first ask AM I hungry, if I am hungry, how hungry; a typical snack is ~ 150-175 kcals (ie. Measured nuts and chocolate) - apple and almond butter 3. Plan a 4 pm snack - apple and peanut butter or hummus with veggies and triscuits or chips and salsa (~ 200 calorie) - successful Nutrition Goals: 1. Aim for one 24 hour fasting day per week - yes; successful with this intervntion 2. First meal after fasting to be between 400-500 calories - (palm size of protein, 1.5 cups veggies, 1/2 cup only of starch) 3. Avoid eating after 7 pm - challeneging 4. Track calories to aim for ~ 1,475 for weight loss - Use MyPlate food tracker - PRE-Track as muchas possible [...] any emotional changes that are significant. Exercise Still recovering from knee surgery, PT twice a week, riding recumbent bike 3 times a day for 1 mile. Sleep Not discussed Stress Son and family moved in temporarily while their hose is being built. Some stress especially around meals,. We are working it out. Self-monitoring What are you doing now? If no personal accountability process, what can you add? [x]Food log: [] daily [x] intermittent []Weigh-ins: [] daily [] weekly []Exercise log [x]Gratitude journal []Other: Food Behaviors (optional): It's been challenging with son and family living here. Son cooks and doesn't always cook what I'd like to be eating. I will talk with him about planning menus together and offer to cook the vegetables. My grandson and I like to bake together which also creates a challenge. I will practice having smaller portions at a time, eating mindfully and recognizing when I am satisfied vs. Eating too much. Future follow-up with health job coach/job developer will address identified areas of concern: [x] Exercise []Sleep []Stress [x]Accountability [x]Food Behaviors []Self-compassion Below are guidelines for optimal [...] increasing mindfulness throughout the day. Your health job coach/job developer is well-equipped to guide you to find something to look forward to everyday. Eating behaviors: many people benefit from restricting the hours in which they eat. You can choose an eating window of 8-12 hours to start. Make a pact with yourself that you will not take in anything with caloric content outside this window. Your dance teacher may make further recommendations documented in this encounter Plan of Treatment Upcoming Encounters Date Type Department Care Team (Late st Contact Info) Description 04/13/2024 3:20 PM EST Office Visit Dermatology at [facility] [address] [place] [address] Felicitas Llanes MD [facility] [address] [place] [address] 04/26/2024 4:00 PM EST Office Visit [place] [address] Denia Xiao, ALBA [facility] [place] [place] [address] documented as of this encounter Goals Goal Patient Goal Type Associated Problems Recent Progress Patient-Stated? Author movement Exercise No Arsh So Note: Try cardio chair exercises. Health Video Conference Specialist will send links to videos. Self [...] the pause (STOP, and urge surfing. Health Video Conference Specialist will mail hand-outs. documented as of this encounter Visit Diagnoses Diagnosis Class 3 severe obesity with body mass index (BMI) of 40.0 to 44.9 in adult, unspecified obesity type, unspecified whether serious comorbidity present documented in this encounter Care Teams Jewelry Bearing Maker Relationship Specialty Start Date End Date Carolyn Christianson APRN PCP - General Family Medicine 12/21/20 10/02/22 documented as of this encounter
--- OUTSIDE RECORDS SUMMARY | 2024-03-20 11:53 | XMS_ITS | Encounter Summary ---
Author Organization [facility] [place] [address] Care Team Providers Care Staff Psychiatrist Name Role Phone Carolyn Christianson APRN Primary Care Provider [phone] [phone] Encounter Details Date Type Department Care Team (Latest Contact Info) Description 10/10/2021 10:30 AM EDT TH Visit (TeleHealth) Weight and Wellness at [address] [phone] Arsh So Class 3 severe obesity with [...] Instructions * Patient Instructions* Arsh So - 10/10/2021 10:30 AM EDT It was good to talk with you today Liss. I'm glad to hear that things are going well with your knee replacement recovery. You are mainly focusing on healing and recovering and staying on track with your PT routine. This can be a good time to start a gratitude journal, if you don't a;ready have one. This is an exercise where you write down something that you are grateful for, appreciate, that made you feel good and smile, either that someone did for you and also things that you appreciate about your body. I look forward to talking with you soon. Be well, Arsh So Health Rotor Coil Taper documented in this encounter Progress Notes * Arsh So - 10/10/2021 10:30 AM EDT Liss Mosley is here today at the request of Dr. Khalil for lifestyle coaching for weight control and overall health. FOLLOW UP VISIT 1. Clarify/revisit BIG WHY:feel better, more energy 2. Assess/review Strengths: knowledge 3. Review Healthy habits guidelines for exercise, sleep, and stress- see below 4. Teach SMART goals and practice setting one(connect to BIG WHY, pillars). Patient shared that she recently had her knee replaced and has been focused on healing and recoverring. She is doing PT and things are going well for her. She is planning to get back on to her weightand wellness plan in another week. Review specific goals if any from provider Goals ??? Actrivity Open your yoga rusty and see if you might be interested in trying this gentle form of movement to activate your muscles. ??? movement Try cardio chair exercises. Health Rotor Coil Taper will send links to videos. ??? Nutrition [...] ~ 1,475 for weight loss - Use [employer] sentronics food tracker - PRE-Track as muchas possible [...] and any emotional changes that are significant. Future follow-up with health head tennis coach will address identified areas of concern: [x] Exercise []Sleep []Stress [x]Accountability []Food Behaviors []Self-compassion Below are guidelines [...] increasing mindfulness throughout the day. Your health head tennis coach is well-equipped to guide you to find something to look forward to everyday. Eating behaviors: many people benefit from restricting the hours in which they eat. You can choose an eating window of 8-12 hours to start. Make a pact with yourself that you will not take in anything with caloric content outside this window. Your title examiner may make further recommendations documented in this encounter Plan of Treatment Upcoming Encounters Date Type Department Care Team (Late st Contact Info) Description 04/13/2024 3:20 PM EST Office Visit Dermatology at [address] [place] [address] Felicitas Llanes MD [facility] DR MODESTA THORNT[place] [address] 04/26/2024 4:00 PM EST Office Visit [place]rology [place] [address] Denia Xiao APRN [facility] [place] [address] documented as of this encounter Goals Goal Patient Goal Type Associated Problems Recent Progress Patient-Stated? Author movement Exercise No Arsh So Note: Try cardio chair exercises. Health Rotor Coil Taper will send links to videos. Self monitoring [...] present documented in this encounter Care Teams Staff Psychiatrist Relationship Specialty Start Date End Date Carolyn Christianson APRN PCP - General Family Medicine 12/21/20 10/02/22 documented as of this encounter
--- OUTSIDE RECORDS SUMMARY | 2024-03-20 11:53 | XMS_ITS | Encounter Summary ---
Author Organization [facility] [place] [address] Care Team Providers Care Property Officer Name Role Phone Carolyn Christianson APRN Primary Care Provider [phone] [phone] Reason for Visit * Reason Onset Date Comments Medication Refill 09/12/2021 Encounter Details Date Type Department Care Team (Late st Contact Info) Description 09/12/2021 Refill Weight and Wellness at [facility] [address] [place] [phone] Collette Adair, [facility] Social History Tobacco Use Types Packs/Day Years [...] Dermatology at [facility] [address] [place] [phone] Felicitas Llanes MD [facility] DR MODESTA THORNT[place] [address] 04/26/2024 4:00 PM EST Office Visit Nephrology Hypertension at [facility] [place] [address] Denia Xiao APRN [facility] [address] documented as of this encounter Goals Goal Patient Goal Type Associated Problems Recent Progress Patient-Stated? Author movement Exercise No Arsh So Note: Try cardio chair exercises. Health Skiver Heel Tap will send links to videos. Self monitoring [...] on filedocumented in this encounter Care Teams Property Officer Relationship Specialty Start Date End Date Carolyn Christianson APRN PCP - General Family Medicine 12/21/20 10/02/22 documented as of this encounter
--- OUTSIDE RECORDS SUMMARY | 2024-03-20 11:53 | XMS_ITS | Encounter Summary ---
[place] [address] Care Team Providers Care Assistant County Attorney Name Role Phone Carolyn Christianson APRN Primary Care Provider [phone] [phone] Encounter Details Date Type Department Care Team (Late st Contact Info) Description 04/22/2022 Telephone [place] [id number] Matti Darnell Social History Tobacco Use Types [...] encounter Miscellaneous Notes * Telephone Encounter - Brittni Mccoy RN - 04/23/2022 11:29 AM EST Attempted to return call, no option to leave a message. Sent [facility] message. * Telephone Encounter - Matti Darnell - 04/22/2022 4:05 PM EST Inbound/Outbound: Inbound Spoke to Patient/Left Message: Spoke to patient. Notes: Inbound call from patient to advise that she has not been able to make herself take her mostrecent dose of her Trulicity, as her dose was recently increased and gave her vomiting and diarrhea. Patient requesting to speak to someone about going back to previous dose of Trulicity. Advised patient I would pass the message along to Dr. Tate and nursing staff asking for callback to discuss. documented in this encounter Plan of Treatment Upcoming Encounters Date Type Department Care Team (Late st Contact Info) Description 04/13/2024 3:20 PM EST Office Visit Dermatology at [place] [address] [place] [address] Felicitas Llanes MD [facility] [address] [place] [address] 04/26/2024 4:00 PM EST Office Visit [place] [address] Denia Xiao APRN [facility] [address] documented as of this encounter Goals Goal Patient Goal Type Associated Problems Recent Progress Patient-Stated? Author movement Exercise No Arsh So Note: Try cardio chair exercises. Health Synchronizer will send links to videos. Self monitoring [...] updated 3. Lifestyle No Arlin Mac I, RD Note: [...] the pause (STOP, and urge surfing. Health Synchronizer will mail hand-outs. documented as of this encounter Visit Diagnoses Not on filedocumented in this encounter Care Teams Assistant County Attorney Relationship Specialty Start Date End Date Carolyn Christianson APRN PCP - General Family Medicine 12/21/20 10/02/22 documented as of this encounter
--- OUTSIDE RECORDS SUMMARY | 2024-03-20 11:53 | XMS_ITS | Encounter Summary ---
Author Organization [facility] [place] [address] Care Team Providers Care Log Chipper Operator Name Role Phone Carolyn Christianson APRN Primary Care Provider [phone] Encounter Details Date Type Department Care Team (Latest Contact Info) Description 04/25/2022 Travel Social History Tobacco Use Types Packs/Day [...] 3:20 PM EST Office Visit Dermatology at [facility] [address] [place] [address] [facility] [address] [place] [address] 04/26/2024 4:00 PM EST Office Visit [place] [address] [facility] [place] [address] documented as of this encounter Goals Goal Patient Goal Type Associated Problems Recent Progress Patient-Stated? Author movement Exercise No Arsh So Note: Try cardio chair exercises. Health Repairer [employer] will send links to videos. Self monitoring [...] the pause (STOP, and urge surfing. Health Repairer [employer] will mail hand-outs. documented as of this encounter Visit Diagnoses Not on filedocumented in this encounter Care Teams Log Chipper Operator Relationship Specialty Start Date End Date Carolyn Christianson APRN PCP - General Family Medicine 12/21/20 10/02/22 documented as of this encounter
--- OUTSIDE RECORDS SUMMARY | 2024-03-20 11:53 | XMS_ITS | Encounter Summary ---
Author Organization [facility] [place] [address] Care Team Providers Care Carpenter/Labor Name Role Phone Carolyn Christianson APRN Primary Care Provider [phone] [phone] Reason for Referral * Consultation (Routine) - Closed Specialty Diagnoses / Procedures Referred By Contac t Referred To Contact Weight and Wellness Diagnoses Class 3 severe obesity with body mass index (BMI) of 45.0 to 49.9 in adult, unspecified obesity type, unspecified whether serious comorbidity present Insulin resistance Stephanie Casey MD [facility] [address] [place] [address] [facility] [address] [place] [address] Referral ID Status Reason Start Date Expiration Date V isits Requested Visits Authorized [id number] Closed Consult, Test & Treat 12/21/2021 12/21/2022 1 1 * Consultation (Routine) - Closed Specialty Diagnoses / Procedures Referred By Contac t Referred To Contact General Surgery Diagnoses Class 3 severe obesity with body mass index (BMI) of 45.0 to 49.9 in adult, unspecified obesity type, unspecified whether serious comorbidity present obesity Procedures interested in bariatric surgery Stephanie Casey MD [facility] DR [address] [place] [address] [facility] [address] [place] [address] Referral ID Status Reason Start Date Expiration Date V isits Requested Visits Authorized [id number] Closed Consult, Test & Treat 12/20/2021 12/20/2022 1 1 Reason for Visit * Reason Comments Follow-up Weight managment Encounter Details Date Type Department Care Team (Late st Contact Info) Description 12/20/2021 4:30 PM EDT Office Visit Weight and Wellness at [address] [address] Stephanie Casey MD [facility] [place] [address] Class 3 severe obesity with body mass [...] Sign Reading Time Taken Comments Blood Pressure 149/67 12/20/2021 4:19 PM EDT Pulse 69 12/20/2021 4:19 PM EDT Temperature - - Respiratory Rate - - Oxygen Saturation 97% 12/20/2021 4:19 PM EDT Inhaled Oxygen Concentration - - Weight 127.9 kg (281 lb 14.4 oz) 12/20/2021 4:19 PM EDT Height 165.1 cm (5' 5) 12/20/2021 4:19 PM EDT Body Mass Index 46.91 12/20/2021 4:19 PM EDT documented in this encounter Patient Instructions * Patient Instructions* Stephanie Casey MD - 12/20/2021 4:30 PM EDT Images from the original note were not included. 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 If you are considering bariatric surgery, the first step is to attend a Bariatric Surgery Information at [facility]. To register, please call: [phone] There is no obligation or charge by attending this session. Incretins/GLP 1 Receptor Agonists Brand (generic) Names Victoza or Saxenda (liraglutide), Ozempic or Wegovy (semaglutide), Rybelsus (semaglutide oral), Trulicity (dulaglutide) Saxenda and Wegovy are the only incretins that are FDA approved for treatment of obesity. Saxenda is the same medication as Victoza. Saxenda's highest dose is 3.0mg daily, whereas VIctoza is only up to 1.8mg daily for diabetes. Both of these are daily injections Wegovy is the same medication as Ozempic. Wegovy's highest dose is 2.4mg weekly, whereas Ozempic isonly up to 1.0mg weekly for diabetes. Both of these are weekly injections Trulicity is a weekly injectable, and like all the other incretins, though it is not FDA approved for obesity treatment Trulicity is often used ???off label?? by obesity medicine specialists. Ryblesus is the oral form of semaglutide and the only oral incretin. How they work: Increase insulin sensitivity Decrease appetite Slow movement of food through the stomach making you feel caballero sooner and longer. When not to use: Family history of medullary thyroid cancer Use cautiously if you have had a history of pancreatitis Other medications For patients with diabetes on insulin: You will likely need to reduce your insulin use when you start this medication, depending on your hemoglobin A1c Common Side Effects (not comprehensive) Most commonly gastrointestinal including but not limited to diarrhea, nausea, taste changes, acid reflux. These side effects may improve after you are on the medication for a few weeks. These side effects are less likely with once weekly and oral dosing Serious Side Effects Gallbladder disease is an uncommon but serious side effect of using these medications. Gallbladder disease is a complication of this medication as well as a complication of obesity and rapid weight loss. If you experience any severe upper abdominal pain, uncontrolled vomiting, pain that radiates to your back or shoulders, please go to the emergency room for evaluation. What you can do EAT SLOWLY and stop when you feel full. This prevents feeling badly after meals. Starting this medication You must increase the dose slowly. You will have more severe side effects if you start on a high dose. Your doctor will start you at a low dose and prescribe slow titration, increasing the dose everyweek or month. Follow your provider's instructions. If you ever stop this medication for a period of time (one week or more) on purpose or by accident,you will need to begin taking it again at the initial starting dose which may require a new prescription. Monitoring If you do not achieve 5% weight loss at 12 weeks, we will increase the dose or try a different medication Uses Diabetes, weight loss Online information The site below discusses incretins with respect to Insulin resistant, aka Type 2, diabetes. Becauseobesity is often a disease of insulin resistance, the medications help those suffering with obesityin the same way that they help diabetics. https://www.diabeteseducator.org/practice/practice-tools/athbbcxq-tdpxjywntk-dfg ls/mux-8-rphmodlch https://www.diabeteseducator.org/docs/default-source/practice/educator-tools/glp -1-medications/understanding_glp_final.pdf?sfvrsn=2 The following informational sheet will provide instruction for how to store and inject the injectable forms of incretins. https://www.diabeteseducator.org/practice/practice-tools/lzwkexpn-vakedlnnrx-ksk ls/oqu-7-whkwtndng documented in this encounter Progress Notes * Stephanie Casey MD - 12/20/2021 4:30 PM EDT Patient provided verbal consent prior to initiation of this telemedicine encounter and expressed understanding that the telemedicine visit will be billed similar to a clinic visit. In addition, privacy and MDM are consistent with an in-person visit. Pt was seen via [x] Video [] phone [facility] [place] Patient Name: Liss Mosley Date of : 1965 Age: 56 y.o. Carolyn Christianson APRN Thank you for referring Liss Mosley to the Weight and Wellness Center. I saw her for a follow-up visit today, 12/20/21. Please see changes to care as documented in the assessment and plan. CHIEF COMPLAINT: F/u for treatment of WHO Class 3 / EOSS Stage 2 Obesity defined by initial BMI and comorbidities Depression, OA, TESSA and Thyroid dz (Ning's thyroiditis), elevated BP without dx.. This is Visit #4 [facility] visit for this 56 y.o. patient. Weight [...] achey is the biggest goal Today's weight: 281 Change since prior: -16# [facility] Team: Stephanie Casey MD, Arlin Mac RD and Arsh So, Health Mimeographer HPI TODAY PATIENT REPORTS: August - less active Son's family an dtheir dog have been living with her as they put addition on their house. Eating was really challenging b/c of family being there. Pattern - gaining and losing and now wonders if she should get bypass. 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 Previoulsy was eating in a 8hour window - noon - 8PM . Now breakfast is :e.g. mayra crackers, Trix yogurt and applesause at 8:30, then eats again at 12;30 and finds she is starving by 4:30, She is supposed to eat with them to model trying a little of everything and is not sure if a letter indicating that she needs to follow a prescribed diet would help She would also like to consider bariatric surgery AOM: Currently taking: metformin 2000mg daily. has chronic intermittent diarrhea, no change with metformin. No cravings. No other SE AOM HX: Trulicity Starting 12/20/21 Starting weight: [...] interventions, see goals Nutrition: specific recommendations per RDArlin ; see above From prior visit: 1-2 glasses of wine per day Discussed [...] process, r/b/se of incretins VITAL SIGNS: Vitals: 12/20/21 1619 BP: 149/67 Pulse: 69 SpO2: 97% Weight: 127.9 kg (281 lb 14.4 oz) Height: 165.1 cm (5' 5) Body mass index is 46.91 kg/m??. PHYSICAL EXAM: Gen: Alert and appropriate, [...] on elevated CAMMIE IR AOM: Continue metformin 2000mg, will \try to add Trulicity but unsure this will be covered by her insurance. Also suggested phentermine, but she is not sure that she wants to try a stimulant and her BP today is elevated. 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 Liss was seen today for follow-up . Diagnoses and all orders for this visit: Class 3 severe obesity with body mass index (BMI) of 45.0 to 49.9 in adult, unspecified obesity type, unspecified whether serious comorbidity present - metFORMIN XR (Glucophage XR) 500 mg Tablet Sustained Release 24 hr; Take 4 tablets by mouth daily. 4 po qdinner - Referral to Bariatric Surgery Program Insulin resistance - metFORMIN XR (Glucophage XR) 500 mg Tablet Sustained Release 24 hr; Take 4 tablets by mouth daily. 4 po qdinner Return in about 6 weeks (around 01/31/2022) for MED CHECK - 15 AND f/u in 3 months, //RD:, 3 consec monthly visits. 0 min chart review 42 min [id number] Visit time And Documentation time I spent time as above caring for this patient today; reviewing labs, writing prescriptions, documenting visit, examining the patient, arranging other specialty care, counseling in diet and/or exercise and discussion of treatment options in the care of obesity. documented in this encounter Miscellaneous Notes * Addendum Note - Stephanie Casey MD - 12/20/2021 4:30 PM EDTAddended by: STEPHANIE CASEY on: 12/21/2021 12:43 PM Modules accepted: Orders documented in this encounter Plan of Treatment Upcoming Encounters Date Type Department Care Team (Late st Contact Info) Description 04/13/2024 3:20 PM EST Office Visit Dermatology at [address] [address] Felicitas Llanes MD [facility] DR [address] [place] [address] 04/26/2024 4:00 PM EST Office Visit Neph[place] [address] Stephanie Xiao APRN [facility] [place] [address] Scheduled Referrals Name Type Priority Associated Diagnoses Orde r Schedule Referral to Bariatric Surgery Program Outpatient Referral Routine Class 3 severe obesity with body mass index (BMI) of 45.0 to 49.9 in adult, unspecified obesity type, unspecified whether serious comorbidity present Ordered: 12/20/2021 Amb Referral to [facility] Psych Evaluation Outpatient Referral Routine Class 3 severe obesity with body mass index (BMI) of 45.0 to 49.9 in adult, unspecified obesity type, unspecified whether serious comorbidity present Insulin resistance Ordered: 12/21/2021 documented as of this encounter Goals Goal Patient Goal Type Associated Problems Recent Progress Patient-Stated? Author movement Exercise No Arsh So Note: Try cardio chair exercises. Health Mimeographer will send links to videos. Self monitoring Lifestyle On track(2021 10:00 AM EST) No Stephanie Casey MD Note: Keep food log until you are seen by the dieititian. Record everything you eat or drink, include time eaten and any emotional changes that are significant. Actrivity Lifestyle No Stephanie Casey MD Note: Open your yoga rusty and [...] the pause (STOP, and urge surfing. Health Mimeographer will mail hand-outs. documented as of this encounter Visit Diagnoses Diagnosis Class 3 severe obesity with body mass index (BMI) of 45.0 to 49.9 in adult, unspecified obesity type, unspecified whether serious comorbidity present- Primary Insulin resistance Dysmetabolic Syndrome X documented in this encounter Care Teams Carpenter/Labor Relationship Specialty Start Date End Date Carolyn Christianson APRN PCP - General Family Medicine 12/21/20 10/02/22 documented as of this encounter
--- OUTSIDE RECORDS SUMMARY | 2024-03-20 11:53 | XMS_ITS | Encounter Summary ---
Author Organization Replaced By [facility] Address [facility] [place] [address] Care Team Providers Care Pantograph Watcher Name Role Phone Carolyn Christianson APRN Primary Care Provider [phone] Encounter Details Date Type Department Care Team (Latest Contact Info) Description 08/20/2021 4:00 PM EDT TH Visit (TeleHealth) Weight and Wellness at [address] [phone] Arlin Mac I, [facility] [place] [address] Obesity, unspecified classification, unspecified obesity type, unspecified [...] - Inhaled Oxygen Concentration - - Weight 122.5 kg (270 lb) 08/20/2021 4:32 PM EDT Height 165.1 cm (5' 5) 08/20/2021 4:32 PM EDT Body Mass Index 44.93 08/20/2021 4:32 PM EDT documented in this encounter Patient Instructions * Patient Instructions* Arlin Mac RD - 08/29/2021 6:23 PM EDT Goals Addressed This Visit's Progress Nutrition Nutrition Goals: 08/20/21 1. On fast [...] ~ 1,475 for weight loss - Use [employer] food tracker - PRE-Track as muchas possible - 1200 calorie at lowest 5. Aim to limit non-nutritive calories (for example chocolate and wine) to ~ 150 calories - reviewed this goal today; will aim for 1 glass 6. Use measuring tools for accuracy - yes documented in this encounter Progress Notes * Arlin Mac RD - 08/20/2021 4:00 PM EDT Nutrition Intervention for Weight Management RD visit Assessment/Nutrition Diagnosis: Pt at increased nutritional risk related to excessive calorie intake and sub optimal physical activity resulting in overweight/obesity as evidenced by BMI and diet recall Telehealth / telephone visit conducted while patient was at home at the following address: [address] [facility] [address] Weight Today: Vitals 08/20/2021 Height (Central African) 65 Height (Metric) 165.1 cm Weight (Central African) 270 lbs Weight (Metric) 122.471 kg BMI (Calculated) 44.93 kg/m2 Typical Dietary Intake: B: L: homemade made soup or salad or lentil pasta salad S: 4 pm apple and almond butter D: leftover chicken and roasted veggies or green salad S: occasional couple pieces of cheese or chcolate Typical Beverages: water Previous Nutrition Goals: Goals ??? Actrivity Open your yoga rusty and see if you might be interested in trying this gentle form of movement to activate your muscles. ??? movement Try cardio chair exercises. Health Sde will send links to videos. ??? Nutrition Nutrition Goals: 06/22/21 1. Make [...] ~ 1,475 for weight loss - Use [employer] food tracker - PRE-Track as muchas possible [...] any emotional changes that are significant. Interview: Working on weight loss to meet BMI goal for TKA Nutrition Goals: 1. On fast days male balanced plate 6 oucnces of protein, half the plate veggies and end with 1/2 cup starch 2. Plan for Outshine single serve bars at ~ 150 kcals 3. Take multi vitamins at 8pm before brushing teeth Monitor/Evaluate: Will follow up in 4 months Aim for 5-10% weight loss from [...] PM EST Office Visit Dermatology at [facility] [address] [place] [address] Felicitas Llanes MD [facility] [address] [place] [address] 04/26/2024 4:00 PM EST Office Visit Nephrology [place] [address] Denia Xiao APRN [facility] [place] [address] documented as of this encounter Goals Goal Patient Goal Type Associated Problems Recent Progress Patient-Stated? Author movement Exercise No Arsh So Note: Try cardio chair exercises. Health Sde will send links to videos. Self monitoring [...] present documented in this encounter Care Teams Pantograph Watcher Relationship Specialty Start Date End Date Carolyn Christianson APRN PCP - General Family Medicine 12/21/20 10/02/22 documented as of this encounter
--- OUTSIDE RECORDS SUMMARY | 2024-03-20 11:53 | XMS_ITS | Encounter Summary ---
Author Organization [facility] [place] [address] Care Team Providers Care Lieutenant Shift Supervisor Name Role Phone Carolyn Christianson APRN Primary Care Provider [phone] [phone] Encounter Details Date Type Department Care Team (Latest Contact Info) Description 05/23/2022 Multidisciplinary Ca re Committee [place] [address] [facility] [place] [address] Social History Tobacco Use Types Packs/Day Years [...] as of this encounter Progress Notes * Susan Ulloa, [facility] - 05/23/2022 1:40 PM EST [facility] Care Coordination Note 05/23/22 Patient discussed at care coordination meeting. Reason brought to meeting: Update on bariatric wt loss req Care team: Susan Strickland, Apolonia Lowry Notes: See documentation from bariatric surgery team regarding MVP ins wt loss req- not changing. Suggested pre-bariatric diet. The following plan was discussed: [facility] team will continue to see Liss to support her towards her wt loss goals and steps towards following the pre-bariatric diet in the setting of challenging work environment. She is scheduled to see HB and KD in May, will encourage follow-up with psychology. Susan Ulloa RD LD documented in this encounter Plan of Treatment Upcoming Encounters Date Type Department Care Team (Late st Contact Info) Description 04/13/2024 3:20 PM EST Office Visit Dermatology at [place] [address] [place] [address] Felicitas Llanes MD [facility] [address] [place] [address] 04/26/2024 4:00 PM EST Office Visit [place] [address] Denia Xiao APRN [facility] [place] [place] [address] documented as of this encounter Goals Goal Patient Goal Type Associated Problems Recent Progress Patient-Stated? Author movement Exercise No Arsh So Note: Try cardio chair exercises. Health Color Repairer will send links to videos. Self [...] muscles. Nutrition goals updated 3. Lifestyle No Fredette, Arlin I, RD Note: [...] the pause (STOP, and urge surfing. Health Color Repairer will mail hand-outs. documented as of this encounter Visit Diagnoses Not on filedocumented in this encounter Care Teams Lieutenant Shift Supervisor Relationship Specialty Start Date End Date Carolyn Christianson APRN PCP - General Family Medicine 12/21/20 10/02/22 documented as of this encounter
--- OUTSIDE RECORDS SUMMARY | 2024-03-20 11:53 | XMS_ITS | Encounter Summary ---
Author Organization [facility] Address [facility] [place] [address] Care Team Providers Care Seasonal Recruiter Name Role Phone Carolyn Christianson APRN Primary Care Provider [phone] Encounter Details Date Type Department Care Team (Latest Contact Info) Description 01/23/2022 8:30 AM EDT TH Visit (TeleHealth) Weight and Wellness at [address] [id number] Arlin Mac I, [place] [place] [address] Dietary counseling and surveillance Social History Tobacco [...] - Inhaled Oxygen Concentration - - Weight 125.6 kg (277 lb) 01/23/2022 6:26 AM EDT Height 165.1 cm (5' 5) 01/23/2022 6:26 AM EDT Body Mass Index 46.1 01/23/2022 6:26 AM EDT documented in this encounter Patient Instructions * Patient Instructions* Arlin Mac I, RD - 01/23/2022 8:30 AM EDT Images from the original note were not included. Goals Actrivity Open your yoga rusty and see if you might be interested in trying this gentle form of movement to activate your muscles. movement Try cardio chair exercises. Health Barrel Washer will send links to videos. Nutrition Nutrition Goals updated today: 12/21/21 TF 1. Look for 5 Eating Behaviors handout in the mail 2. Practice eating protein first at all meals Nutrition Goals: 08/20/21 1. On fast days [...] ~ 1,475 for weight loss - Use Coridea food tracker - PRE-Track as muchas possible - 1200 calorie at lowest 5. Aim to limit non-nutritive calories (for example chocolate and wine) to ~ 150 calories - reviewed this goal today; will aim for 1 glass 6. Use measuring tools for accuracy - yes Nutrition 06/07/2021 Self monitoring Keep food log until you are seen by the dieititian. Record everything you eat or drink, include time eaten and any emotional changes that are significant. self-awareness Practice mindful eating, the pause (STOP, and urge surfing. Health Barrel Washer will mail hand-outs. documented in this encounter Progress Notes * Arlin Mac RD - 01/23/2022 8:30 AM EDT Nutrition Intervention for Weight Management Initial RD visit with KRISTYN Blair 1965 Telehealth / telephone visit conducted while patient was at home at the following address: [address] [place] [id number] Weight Today: Wt Readings from Last 3 Encounters: 01/23/22 125.6 kg (277 lb) 12/20/21 127.9 kg (281 lb 14.4 oz) 09/20/21 120.2 kg (265 lb) BMI Readings from Last 3 Encounters: 01/23/22 46.10 kg/m?? 12/20/21 46.91 kg/m?? 09/20/21 44.10 kg/m?? Interview: Pt is working on all eating behaviors for bariatric surgery. Has reduced wine and seltzer. Weight Loss History: See previous notes from this short story writer and [facility] provider for full account Typical Dietary Intake: B: sausage and faroese muffin (usually not eating at this time) - 2nd breakfast toast and peaches and coffee and L: mashed potato salsbury steak and carrots and cucumber D: home made rice rodrigez and beef burrito S: Typical Beverages: [x] coffee (Cups per day: black 1 large cup/day [x] water - (total: ~ 48 ounces [x] plain [] crystal light or other sugar-free additive [x] [place]; 3 cans (working on reducing - pt understands her goal to be carbonation free before surgery) Appetite/Hunger: [] feels managed with foods/meals outlined above [] discussed meal/snack schedule adjustment today- see goals [] patient identifies eating for reasons other than hunger- see interview above [] Current food Tracking [] discussed potential benefit starting food tracking - see goals Patient Goals from Team: Goals ??? Actrivity Open your yoga rusty and see if you might be interested in trying this gentle form of movement to activate your muscles. ??? movement Try cardio chair exercises. Health Barrel Washer will send links to videos. ??? Nutrition Nutrition Goals updated today: 12/21/21 TF 1. Look for 5 Eating Behaviors handout in the mail 2. Practice eating protein first at all meals Nutrition Goals: 08/20/21 1. On fast days [...] ~ 1,475 for weight loss - Use Coridea food tracker - PRE-Track as muchas possible [...] and any emotional changes that are significant. ??? self-awareness Practice mindful eating, the pause (STOP, and urge surfing. Health Barrel Washer will mail hand-outs. Bariatric eating behaviors introduced or reviewed: [] Stop eating at comfortable full point (eating slowly to know, chewing thoroughly) [] Any binging identified? (6 months no binging prior to surgery) [x] Regular meal pattern, avoid grazing, reasonable snack frequency [x] Plan protein at all meals and snacks, eat protein first [x] Total water intake [x] eating and drinking by 30 minutes on either side [x] Sip rather than gulp [x] Reduce coffee intake down to ~1 cup (caffeine) prior to surgery [x] Reduce alcohol, ideally avoid Activity: [x] reviewed current goals; PT a couple times/wk - currently have a back pain issue which is hindering exercise progress [] updated goals Nutrition Goals updated today: 1. Continue to practice all 5 Eating Behaviors for Bariatric Surgery Monitor/Evaluate: [] Needs additional fuv scheduled with this short story writer in No follow-ups on file. (OR) [] Currently scheduled for: [] 1st consecutive monthly nutrition visit [] 2nd consecutive monthly nutrition visit [x] 3rd consecutive monthly nutrition visit (OR) [] Patient has met requirement of 3 consecutive monthly nutrition visits but agrees that ongoing support would be helpful and feasible. Above determined to the best ability of this short story writer. Patient will contact bariatric surgery team for any official determination about about scheduling and insurance requirements ( ) Thank you Arlin Mac MS RD KD 30 minutes were spent in visit today, including contact with patient, chart review, and documentation documented in this encounter Plan of Treatment Upcoming Encounters Date Type Department Care Team (Late st Contact Info) Description 04/13/2024 3:20 PM EST Office Visit Dermatology at [place] [address] [place] [address] Felicitas Llanes MD [facility] [address] [place] [address] 04/26/2024 4:00 PM EST Office Visit Neph[place] [address] Denia Xiao APRN [facility] [address] documented as of this encounter Goals Goal Patient Goal Type Associated Problems Recent Progress Patient-Stated? Author movement Exercise No Arsh So Note: Try cardio chair exercises. Health Barrel Washer will send links to videos. Self monitoring [...] the pause (STOP, and urge surfing. Health Barrel Washer will mail hand-outs. documented as of this encounter Visit Diagnoses Diagnosis Dietary counseling and surveillance Dietary surveillance and counseling documented in this encounter Care Teams Seasonal Recruiter Relationship Specialty Start Date End Date Carolyn Christianson APRN PCP - General Family Medicine 12/21/20 10/02/22 documented as of this encounter
--- OUTSIDE RECORDS SUMMARY | 2024-03-20 11:53 | XMS_ITS | Encounter Summary ---
Author Organization [facility] [place] [address] Care Team Providers Care Coremaker Floor Name Role Phone Carolyn Christianson APRN Primary Care Provider [phone] Encounter Details Date Type Department Care Team (Latest Contact Info) Description 05/06/2022 2:30 PM EST TH Visit (TeleHealth) [place] [address] [facility] [place] [address] Class 3 severe obesity with body mass [...] this encounter Patient Instructions * Patient Instructions* Susan Ulloa RD - 05/06/2022 2:30 PM EST It was great to chat with Liss bowers . Below are goals discussed today as well as in past visits.Please reach out with a The car easily beat message if you have any questions or concerns. Susan Goals Actrivity Open your yoga rusty and see if you might be interested in trying this gentle form of movement to activate your muscles. movement Try cardio chair exercises. Health Haz Tech will send links to videos. Nutrition goals 05/06/22 Continue to abstain from alcohol, imagining that as the reality post-surgery, that is our recommendation (no alcohol) Try half or all of a protein drink (Premiere is one option; Rockin protein; Fairlife; 20-30 grams of protein and less than 6 grams of sugar) - have this at breakfast time instead of or in addition toparts of the meal that's served. Pack an alternative just in case you don't want to eat the protein that is served and maybe a pieceof fruit. Can of tuna, [place] Citizen yogurt, cottage cheese, hard-boiled eggs IF you need an alternative tothe meat if you don't like or don't digest well Eat first meal no later than noon on the weekend and try to plan for 3 eating events in total on a weekend day. Be prepared to eat 3 times on a weekend day. Continue tracking in myplate Figure out how to be more consistent with sipping in the morning at work. As you start this new habit of bringing the protein drink, also bring one with water. Set a phone alarm or a hydration rusty toremind you to drink consistently throughout the weekend. Louie lemon or crystal light is fine! To asses portions: Try and have focus and attention right before and during dinner, make the meal last 20-30 minutes. Notice satisfaction / physical hunger and allow for more food at the 20 minute rebeka Self monitoring Keep food log until you are seen by the dieititian. Record everything you eat or drink, include time eaten and any emotional changes that are significant. self-awareness Practice mindful eating, the pause (STOP, and urge surfing. Health Haz Tech will mail hand-outs. documented in this encounter Progress Notes * Susan Ulloa RD - 05/06/2022 2:30 PM EST Nutrition Intervention for Weight Management Initial RD visit with Liss Mobley KRISTYN Mosley 1965 Patient confirms visit conducted while patient was in the following state: [place] Weight Today: Wt Readings from Last 3 Encounters: 04/25/22 127.8 kg (281 lb 12.8 oz) 04/15/22 126.6 kg (279 lb) 02/28/22 127.4 kg (280 lb 14.4 oz) BMI Readings from Last 3 Encounters: 04/25/22 46.89 kg/m?? 04/15/22 46.43 kg/m?? 02/28/22 46.74 kg/m?? Interview: Liss still struggles to meet her weight loss goal. In reflecting on past experiences (If I was counting calories and trying to lose weight would be eatnig more veggies, limits nuts, cheese, etc. 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 Has discussed potential to implement plan discussed last visit (protein shake in opaque cup/bottle that looks like water bottle) so she can eat this and only small portion of what is served. Will try this week. Wondering if eating in the morning on the weekends (since prepping for surgery) causes more hunger throughout the day, eating more often. Was fasting a day a week previously. Reviewed current dietaryintake. Liss also realizes that past weight loss has happened over the summer, outside of the confines of foods at work. 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 Is planning to bring a bottle with protein drink (8:30) L: today was hot dog no bun, broccoli, fruit salad, mac&cheese - had just a little (what the kiddos were served) D: tonight's plan is chicken and salad S: evening: nuts lately (could have clementines or chips/salsa) Typical Beverages: [] coffee (Cups per day: [] half and half (unflavored) [] flavored creamer (sugar) [] flavored creamer (sugar-free) [] added sugar - (total: [] added non-caloric sweetener [x] water - (total: likes louie lemon. 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 Actrivity Open your yoga rusty and see if you might be interested in trying this gentle form of movement to activate your muscles. ??? movement Try cardio chair exercises. Health Haz Tech will send links to videos. ??? Nutrition goals 04/15/22 1. Continue to abstain from alcohol, imagining that as the reality post-surgery, that is our recommendation (no alcohol) 2. Try half or all of a protein drink (Premiere is one option; Rockin protein; Fairlife; 20-30 grams of protein and less than 6 grams of sugar) - try that just before the breakfast meal (at work) to see if you can avoid eating too much (maybe put it in a plain cup to make it easier to sip during work) 3. Continue eating the protein first at lunches, continue an alternative to the meat if you don't like or don't digest well ([place] Citizen yogurt, cheese stick, egg,e tc.) 4. Eat first meal no later than noon on the weekend and try to plan for 3 eating events in total valeriy weekend day. Be prepared to eat 3 times on a weekend day. Chose some protein drinks OR dinner leftovers. Ate at 9a and was hungry by 11a 5. Get back to tracking in the [employer] rusty - yes, has been doing. Not 100% - helped her see that her lunches have been high in calories 6. Set a phone alarm or a hydration rusty to remind you to drink consistently throughout the weekend.You can use crystal light, louie lemon, fresh or frozen fruit, and see about an insulated cup ??? Self monitoring Keep food log until you are seen by the dieititian. Record everything you eat or drink, include time eaten and any emotional changes that are significant. ??? self-awareness Practice mindful eating, the pause (STOP, and urge surfing. Health Haz Tech will mail hand-outs. Bariatric eating behaviors introduced or reviewed: [] Stop eating at comfortable full point (eating slowly to know, chewing thoroughly) [] Any binging identified? (6 months no binging prior to surgery) [x] Regular meal pattern, avoid grazing, reasonable snack frequency [x] Plan protein at all meals and snacks, eat protein first [x] Total water intake (keep reducing seltzer) [] eating and drinking by 30 minutes on either side [] Sip rather than gulp [] Reduce coffee intake down to ~1 cup (caffeine) prior to surgery [x] Reduce alcohol, ideally avoid [] Currently smoking? [] Former smoker, quit date: (4 months nicotine-free prior to first surgery appointment) Activity: [] reviewed current goals [] updated goals Did not discuss today Barriers to Change: See note above regarding work foods Nutrition Goals updated today: Goals Addressed This Visit's Progress ??? Nutrition goals 05/06/22 7. Continue to abstain from alcohol, imagining that as the reality post-surgery, that is our recommendation (no alcohol) 8. Try half or all of a protein drink (Premiere is one option; Rockin protein; Fairlife; 20-30 grams of protein and less than 6 grams of sugar) - have this at breakfast time instead of or in additionto parts of the meal that's served. 9. Pack an alternative just in case you don't want to eat the protein that is served and maybe a piece of fruit. Can of tuna, [place] Citizen yogurt, cottage cheese, hard-boiled eggs IF you need an alternativeto the meat if you don't like or don't digest well 10. Eat first meal no later than noon on the weekend and try to plan for 3 eating events in total on a weekend day. Be prepared to eat 3 times on a weekend day. 11. Continue tracking in myplate 12. Figure out how to be more consistent with sipping in the morning at work. As you start this newhabit of bringing the protein drink, also bring one with water. Set a phone alarm or a hydration rusty to remind you to drink consistently throughout the weekend. Louie lemon or crystal light is fine! 13. To asses portions: Try and have focus and attention right before and during dinner, make the meal last 20-30 minutes. Notice satisfaction / physical hunger and allow for more food at the 20 minute rebeka Monitor/Evaluate: [x] Patient has been seen for 6 consecutive monthly nutrition visits but agrees that ongoing support would be helpful and feasible. Above determined to the best ability of this commercial underwriter. Patient will contact bariatric surgery team for any official determination about about scheduling and insurance requirements ( ) Thank you Susan Ulloa RD [facility] 30 minutes were spent in visit today, including contact with patient, chart review, and documentation documented in this encounter Plan of Treatment Upcoming Encounters Date Type Department Care Team (Late st Contact Info) Description 04/13/2024 3:20 PM EST Office Visit Dermatology at [address] [place] [address] Felicitas Llanes MD [facility] [address] [place] [address] 04/26/2024 4:00 PM EST Office Visit [place] [address] Denia Xiao APRN [facility] [place] [address] documented as of this encounter Goals Goal Patient Goal Type Associated Problems Recent Progress Patient-Stated? Author movement Exercise No Arsh So Note: Try cardio chair exercises. Health Haz Tech will send links to videos. 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 Louie lemon or crystal light is fine! Continue to watch dinner portions: Try and have focus and attention right before and during dinner, make the meal last 20-30 minutes. Notice satisfaction / physical hunger and allow for more food at the 20 minute rebeka self-awareness Lifestyle No Arsh So Note: Practice mindful eating, the pause (STOP, and urge surfing. Health Haz Tech will mail hand-outs. documented as of this encounter Visit Diagnoses Diagnosis Class 3 severe obesity with body mass index (BMI) of 45.0 to 49.9 in adult, unspecified obesity type, unspecified whether serious comorbidity present Insulin resistance Dysmetabolic Syndrome X documented in this encounter Care Teams Coremaker Floor Relationship Specialty Start Date End Date Carolyn Christianson APRN PCP - General Family Medicine 12/21/20 10/02/22 documented as of this encounter
--- OUTSIDE RECORDS SUMMARY | 2024-03-20 11:53 | XMS_ITS | Encounter Summary ---
Author Organization [facility]ly [facility], [facility] Address [facility] [place] [address] Care Team Providers Care Pipe Line Gauger Name Role Phone Carolyn Christianson APRN Primary Care Provider +1 [phone] Encounter Details Date Type Department Care Team (Late st Contact Info) Description 07/25/2021 1:30 PM EDT TH Visit (TeleHealth) Weight and Wellness at [address] [phone] [facility] [address] [address] Class 3 severe obesity due to excess calories with body mass index (BMI) of 45.0 to 49.9 in adult, unspecified whether serious comorbidity present (Primary Dx); Osteoarthritis, unspecified osteoarthritis type, unspecified site; Insulin resistance Social History Tobacco Use Types [...] - Inhaled Oxygen Concentration - - Weight 127 kg (280 lb) 07/25/2021 1:35 PM EDT se lf report Height - - Body Mass Index 46.59 06/22/2021 3:40 PM EDT documented in this encounter Patient Instructions * Patient Instructions* Denia Khalil MD - 07/25/2021 2:14 PM EDT MAIL AVS Trial off metformin. - If within a few days after stopping metformin, you have increased appetite/hunger, restart at 2000mg daily. - If hunger does not increase immediately, remain off metformin for 1-2 weeks. If weight loss stalls or weight increases, restart metformin. You may need to start at the low dose at titrate up again. - If hunger does not increase AND weight continues to go down, you should remain off medication Update me in the next few weeks with how things go. If weight loss stalls in the future sometime, we can reconsider this or another medication. documented in this encounter Progress Notes * Denia Khalil MD - 07/25/2021 1:30 PM EDT Patient provided verbal consent prior to initiation of this telemedicine encounter and expressed understanding that the telemedicine visit will be billed similar to a clinic visit. In addition, privacy and MDM are consistent with an in-person visit. Pt was seen via [x] Video [] phone [facility] [place] Patient Name: Liss Mosley Date of : 1965 Age: 55 y.o. Carolyn Christianson APRN Thank you for referring Liss Mosley to the [facility]. I saw her for a follow-up visit today, 07/25/21. Please see changes to care as documented in the assessment and plan. CHIEF COMPLAINT: F/u for treatment of WHO Class 3 / EOSS Stage 2 Obesity defined by initial BMI and comorbidities Depression, OA, TESSA and Thyroid dz (Ning's thyroiditis), elevated BP without dx.. This is Visit #3 [facility] visit for this 55 y.o. patient. Weight gain due to: menopause/puberty [...] achey is the biggest goal Today's weight: 280 Change since prior: -16.5# [facility] Team: Denia Khalil MD, Arlin Mac, RD and Arsh So, Health Lead Level Designer HPI TODAY PATIENT REPORTS: Weight loss since last visit. Allergies are bad. Knees aer feeling better - less sore ; but has appt with ortho to discuss knee replacment Thinks weight loss is d/t sticking to calorie limit and diligently tracking. 1400 eileen/day. Starts eating at noon. ROLAND 12N - 8PM-adjusting with RD Fasting for 24 hours once a week AOM: Currently taking: metformin 2000mg daily, titrated up pretty quickly. has chronic intermittentdiarrhea, no change with metformin AOM HX: metformin Started: 06/07/2021 Starting weight: 296 lbs Lost 16# at 7 weeks, patient not convinced itis due to meds Obesogenic meds: levocetirizine/takes 2 allergy meds - allergies still poorly controlled COMORBIDITIES ADDRESSED: IR REVIEW OF LABS/DIAGNOSIS SINCE LAST VISIT [] I reviewed past / interim records including notes and labs. ONGOING INTERVENTIONS (Topics discussed today in BOLD): For specific behavioral interventions, see goals Nutrition: specific recommendations per RD ; 1-2 glasses of wine per day Discussed ETOH consumption at length at last visti - recommendations limit ETOH to one serving per night for women. Serving 5 oz. Pt understands [...] related to boredom/emotions, Grazing, Portion control - early evening grazing Activity: See goals Barriers: []needs cardiac eval []injury/pain preventing activity right now Stress Management:no concerns Sleep: no concerns Self-monitoring: Food log Pathway: []Individual []HLP []Surgery []Culinary []ACT []Monthly Lifestyle Classes Discusssion 04/16/21: Pillars, Insulin resistance Discussion 06/07/21: Pathways, Medication options with r/b, specifically metformin and GLP1 agonists. Will start with Metformin. [facility] PATHWAY - ADULT 04/13/2021 Obesity Medicine Activate Movement: No flowsheet data found. ?? Is ambulation limited most or all of the time? Joint pains/back pain Tolerance: she can climb a flight of stairs - wheeze continuously -easily winded Purposeful exercise now? None - too hard to walk Activity enjoyed in past? 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 VITAL SIGNS: Vitals: 07/25/21 1335 Weight: 127 kg (280 lb) Body mass index is 46.59 kg/m??. PHYSICAL EXAM: Gen: Alert and appropriate, [...] Co-morbidities addressed: Insulin resistance Mild IR AOM: Trial off metformin, see below Factors contributing to decision making: NO hx of pancreatitis, NO Fam or personl hx of medullary thyroid ca Per AVS: Trial off metformin. - If within a few days after stopping metformin, you have increased appetite/hunger, restart at 2000mg daily. - If hunger does not increase immediately, remain off metformin for 1-2 weeks. If weight loss stalls or weight increases, restart metformin. You may need to start at the low dose at titrate up again. - If hunger does not increase AND weight continues to go down, you should remain off medication Diagnoses and all orders for this visit: Class 3 severe obesity due to excess calories with body mass index (BMI) of 45.0 to 49.9 in adult, unspecified whether serious comorbidity present Osteoarthritis, unspecified osteoarthritis type, unspecified site Insulin resistance Return for visit as scheduled. documented in this encounter Plan of Treatment Upcoming Encounters Date Type Department Care Team (Late st Contact Info) Description 04/13/2024 3:20 PM EST Office Visit Dermatology at [place] [address] [place] [phone] Felicitas Llanes MD [facility] [address] [address] 04/26/2024 4:00 PM EST Office Visit [place] [address] [facility] [place] [address] documented as of this encounter Goals Goal Patient Goal Type Associated Problems Recent Progress Patient-Stated? Author movement Exercise No Arsh So Note: Try cardio chair exercises. Health Lead Level Designer will send links to videos. Self monitoring [...] Visit Diagnoses Diagnosis Class 3 severe obesity due to excess calories with body mass index (BMI) of 45.0 to 49.9 in adult, unspecified whether serious comorbidity present- Primary Osteoarthritis, unspecified osteoarthritis type, unspecified site Insulin resistance Dysmetabolic Syndrome X documented in this encounter Care Teams Pipe Line Gauger Relationship Specialty Start Date End Date Carolyn Christianson APRN PCP - General Family Medicine 12/21/20 10/02/22 documented as of this encounter
--- OUTSIDE RECORDS SUMMARY | 2024-03-20 11:53 | XMS_ITS | Encounter Summary ---
Author Organization [place] [address] Care Team Providers Care Freight Brake Operator Name Role Phone Carolyn Christianson APRN Primary Care Provider [phone] [phone] Encounter Details Date Type Department Care Team (Late st Contact Info) Description 12/26/2021 Telephone Weight and Wellness at [facility] [address] [place] [address] Lilly Mosquera Social History Tobacco Use Types Packs/Day Years [...] Telephone Encounter - Brittni Mccoy RN - 12/27/2021 3:21 PM EDT LVM for patient letting her know that recommendation was to take both metformin and trulicity per Dr. Khalil's note. * Telephone Encounter - Lilly Mosquera - 12/26/2021 4:59 PM EDT Pt not sure which meds she should be taking (metformin, trulicity, both?) Please call pt to clarify. documented in this encounter Plan of Treatment Upcoming Encounters Date Type Department Care Team (Late st Contact Info) Description 04/13/2024 3:20 PM EST Office Visit Dermatology at [facility] [address] [place] [address] Felicitas Llanes MD [facility] [address]STA [place] [address] 04/26/2024 4:00 PM EST Office Visit [place] [address] Denia Xiao APRN [facility] [place] [address] documented as of this encounter Goals Goal Patient Goal Type Associated Problems Recent Progress Patient-Stated? Author movement Exercise No Arsh So Note: Try cardio chair exercises. Health Rotor Winder will send links to videos. Self monitoring [...] the pause (STOP, and urge surfing. Health Rotor Winder will mail hand-outs. documented as of this encounter Visit Diagnoses Not on filedocumented in this encounter Care Teams Freight Brake Operator Relationship Specialty Start Date End Date Carolyn Christianson APRN PCP - General Family Medicine 12/21/20 10/02/22 documented as of this encounter
--- OUTSIDE RECORDS SUMMARY | 2024-03-20 11:53 | XMS_ITS | Encounter Summary ---
Author Organization Formerly [facility] [place] [address] Care Team Providers Care Grocery Store Manager Name Role Phone Carolyn Christianson APRN Primary Care Provider [phone] [phone] Encounter Details Date Type Department Care Team (Latest Contact Info) Description 07/20/2021 12:00 PM EDT TH Visit (TeleHealth) Weight and Wellness at [address] [phone] Arsh So Obesity, unspecified classification, unspecified obesity [...] Instructions * Patient Instructions* Arsh So - 07/24/2021 9:44 PM EDT It was good to talk with you Liss. You're doing great with food choices. Exercise remains a challenge for you. I will send you some links for gentle exercises as well as cardio chair exercises that you can try at home. If you get on You Tube, search or gentle cardio chair exercises.I look forward to talking with you soon. Be well, Arsh So Health Salesperson Yard Goods documented in this encounter Progress Notes * Arsh So - 07/20/2021 12:00 PM EDT Liss Mosley is here today at the request of Dr. Yin for lifestyle coaching for weight control and overall health. FOLLOW UP VISIT 1. Clarify/revisit BIG WHY: feel better, have more energy 2. Assess/review Strengths: knowledge 3. [...] ~ 1,475 for weight loss - Use [employer] food tracker - PRE-Track as muchas possible [...] any emotional changes that are significant. Exercise Just started using resistance bands Sleep Not discussed Stress Working on managing blood pressure, interested in stress management techniques Self-monitoring What are you doing now? Logging most meals If no personal accountability process, what can you add? []Food log: [] daily [] intermittent []Weigh-ins: [] daily [] weekly [x]Exercise log [x]Gratitude journal []Other: Food Behaviors (optional): Food choices are the easiest part of this journey so far. Logging is helpful. Future follow-up with health middle school coach will address identified areas of concern: [x] Exercise []Sleep [x]Stress []Accountability []Food Behaviors [x]Self-compassion Below are guidelines for optimal health that [...] increasing mindfulness throughout the day. Your health middle school coach is well-equipped to guide you to find something to look forward to everyday. Eating behaviors: many people benefit from restricting the hours in which they eat. You can choose an eating window of 8-12 hours to start. Make a pact with yourself that you will not take in anything with caloric content outside this window. Your tape control skin or spar mill operator may make further recommendations documented in this encounter Plan of Treatment Upcoming Encounters Date Type Department Care Team (Late st Contact Info) Description 04/13/2024 3:20 PM EST Office Visit Dermatology at [place] [address] [place] [address] Felicitas Llanes MD [facility] [address] [place] [address] 04/26/2024 4:00 PM EST Office Visit [place] [address] Denia Xiao [address]N [facility] [place] [address] documented as of this encounter Goals Goal Patient Goal Type Associated Problems Recent Progress Patient-Stated? Author movement Exercise No Arsh So Note: Try cardio chair exercises. Health Salesperson Yard Goods will send links to videos. Self monitoring [...] muscles. Nutrition goals updated 3 Lifestyle No Fredette, Arlin I, RD Note: [...] present documented in this encounter Care Teams Grocery Store Manager Relationship Specialty Start Date End Date Carolyn Christianson APRN PCP - General Family Medicine 12/21/20 10/02/22 documented as of this encounter
--- OUTSIDE RECORDS SUMMARY | 2024-03-20 11:53 | XMS_ITS | Encounter Summary ---
Author Organization [facility] [place] [address] Care Team Providers Care Greens Planter Name Role Phone Carolyn Christianson APRN Primary Care Provider +1 [phone] Encounter Details Date Type Department Care Team (Late st Contact Info) Description 02/18/2022 4:00 PM EST Notes [place] [phone] Social History Tobacco Use Types Packs/Day Years [...] as of this encounter Progress Notes * Tamara Knight - 02/18/2022 4:00 PM EST PATIENT ATTENDED THE INTRO TO BARIATRIC SURGERY FOR THE [facility] ON 02/18/2022 documented in this encounter Plan of Treatment Upcoming Encounters Date Type Department Care Team (Late st Contact Info) Description 04/13/2024 3:20 PM EST Office Visit Dermatology at [facility] [address] [place] [phone] Felicitas Llanes MD [facility] [address] [place] [address] 04/26/2024 4:00 PM EST Office Visit Nephrology Hypertension at [facility] [place] [address] Denia Xiao APRN [facility] [address] documented as of this encounter Goals Goal Patient Goal Type Associated Problems Recent Progress Patient-Stated? Author movement Exercise No Arsh So Note: Try cardio chair exercises. Health Floor Surfacer will send links to videos. Self monitoring [...] the pause (STOP, and urge surfing. Health Floor Surfacer will mail hand-outs. documented as of this encounter Visit Diagnoses Not on filedocumented in this encounter Care Teams Greens Planter Relationship Specialty Start Date End Date Carolyn Christianson APRN PCP - General Family Medicine 12/21/20 10/02/22 documented as of this encounter
--- OUTSIDE RECORDS SUMMARY | 2024-03-20 11:53 | XMS_ITS | Encounter Summary ---
Author Organization [facility] [place] [address] Care Team Providers Care Inspector Penetrant Name Role Phone Carolyn Christianson APRN Primary Care Provider [phone] [phone] Encounter Details Date Type Department Care Team (Late st Contact Info) Description 07/30/2021 Telephone Weight and Wellness at [facility] [address] [place] [address] Lilly Mosquera Social History Tobacco [...] Notes * Telephone Encounter - Brittni Mccoy - 08/06/2021 3:04 PM EDT Spoke to pt, she is all set with Metformin. * Telephone Encounter - Lilly Mosquera - 07/30/2021 3:52 PM EDT Pt calling wants MD to know that she started taking metformin again not sure if she will need RX renewal documented in this encounter Plan of Treatment Upcoming Encounters Date Type Department Care Team (Late st Contact Info) Description 04/13/2024 3:20 PM EST Office Visit Dermatology at [facility] [address] [place] [address] Felicitas Llanes MD [facility] DR MODESTA [place] [address] 04/26/2024 4:00 PM EST Office Visit [place] [address] Denia Xiao APRN [facility] [place] [address] documented as of this encounter Goals Goal Patient Goal Type Associated Problems Recent Progress Patient-Stated? Author movement Exercise No Arsh So Note: Try cardio chair exercises. Health Crime Prevention Police Officer will send links to videos. Self [...] on filedocumented in this encounter Care Teams Inspector Penetrant Relationship Specialty Start Date End Date Carolyn Christianson APRN PCP - General Family Medicine 12/21/20 10/02/22 documented as of this encounter
--- OUTSIDE RECORDS SUMMARY | 2024-03-20 11:53 | XMS_ITS | Encounter Summary ---
Author Organization [facility] Address [facility] [place] [address] Care Team Providers Care Acetylene Gas Compressor Name Role Phone Carolyn Christianson APRN Primary Care Provider +1 [phone] Encounter Details Date Type Department Care Team (Latest Contact Info) Description 02/14/2022 4:00 PM EST TH Visit (TeleHealth) Weight and Wellness at [address] [phone] [facility] [place] [address] Dietary counseling and surveillance Social History Tobacco [...] * Patient Instructions* Arlin Mac RD - 02/14/2022 4:00 PM EST Images from the original note were not included. documented in this encounter Progress Notes * Arlin Mac Nano, RD - 02/14/2022 4:00 PM EST Nutrition Intervention for Weight Management Initial RD visit with KRISTYN Blair 1965 Telehealth / telephone visit conducted while patient was at home at the following address: [address] [place] [phone] Weight Today: Wt Readings from Last 3 Encounters: 01/23/22 125.6 kg (277 lb) 12/20/21 127.9 kg (281 lb 14.4 oz) 09/20/21 120.2 kg (265 lb) BMI Readings from Last 3 Encounters: 01/23/22 46.10 kg/m?? 12/20/21 46.91 kg/m?? 09/20/21 44.10 kg/m?? Interview: Pt is pursuing Bariatric Surgery Weight Loss History: See previous notes from this health technical writer and C provider for full account Typical Dietary Intake: B: at school Vanilla yogurt and granola and small cup of fruit L: at school (small portions/poriton control) D: one pot soup and stews S: Typical Beverages: [x] coffee (Cups per day: 1 cup [x] water - (total: 36-50 ounces [x] plain [] crystal light or other sugar-free additive Appetite/Hunger: [x] feels managed with foods/meals outlined above [] discussed meal/snack schedule adjustment today- see goals [] patient identifies eating for reasons other than hunger- see interview above Patient Goals from Team: Goals ??? Actrivity Open your yoga rusty and see if you might be interested in trying this gentle form of movement to activate your muscles. ??? movement Try cardio chair exercises. Health Wood Tile Installer will send links to videos. ??? Nutrition [...] ~ 1,475 for weight loss - Use [employer] food tracker - PRE-Track as muchas possible [...] the pause (STOP, and urge surfing. Health Wood Tile Installer will mail hand-outs. Bariatric eating behaviors introduced [...] prior to surgery [x] Reduce alcohol, ideally avoid; no longer drinking wine Activity: [x] reviewed current goals; indoor bike 1 x/day [] updated goals Nutrition Goals updated today: No new nutrition goals establshed Monitor/Evaluate: [] Needs additional fuv scheduled with this health technical writer in No follow-ups on file. (OR) [] Currently scheduled for: [] 1st consecutive monthly nutrition visit [] 2nd consecutive monthly nutrition visit [] 3rd consecutive monthly nutrition visit (OR) [x] Patient has met requirement of 3 consecutive monthly nutrition visits but agrees that ongoing support would be helpful and feasible. Above determined to the best ability of this health technical writer. Patient will contact bariatric surgery team for any official determination about about scheduling and insurance requirements ( ) Thank you Arlin Mac MS RD LD 30 minutes were spent in visit today, including contact with patient, chart review, and documentation documented in this encounter Plan of Treatment Upcoming Encounters Date Type Department Care Team (Late st Contact Info) Description 04/13/2024 3:20 PM EST Office Visit Dermatology at [place] [address] [place] [address] Felicitas Llanes MD [facility] DR [address] [place] [address] 04/26/2024 4:00 PM EST Office Visit [place] [address] Denia Xiao APRN [facility] [place] [address] documented as of this encounter Goals Goal Patient Goal Type Associated Problems Recent Progress Patient-Stated? Author movement Exercise No Arsh So Note: Try cardio chair exercises. Health Wood Tile Installer will send links to videos. Self [...] the pause (STOP, and urge surfing. Health Wood Tile Installer will mail hand-outs. documented as of this encounter Visit Diagnoses Diagnosis Dietary counseling and surveillance Dietary surveillance and counseling documented in this encounter Care Teams Acetylene Gas Compressor Relationship Specialty Start Date End Date Carolyn Christianson APRN PCP - General Family Medicine 12/21/20 10/02/22 documented as of this encounter
--- OUTSIDE RECORDS SUMMARY | 2024-03-20 11:53 | XMS_ITS | Encounter Summary ---
Author Organization [facility] Address [facility] [place] [address] Care Team Providers Care Management Sme Name Role Phone Carolyn Christianson APRN Primary Care Provider [phone] [phone] Encounter Details Date Type Department Care Team (Latest Contact Info) Description 04/18/2022 11:30 AM EST TH Visit (TeleHealth) [place] [phone] Apolonia Lowry, PhD [facility] [address] [place] [address] Class 3 severe obesity with body mass [...] Progress Notes * Apolonia Lowry, PhD - 04/18/2022 11:30 AM EST [facility] BARI[facility] PSYCHOLOGICAL EVALUATION N [facility] AT [facility] [address] Dept: [phone] Loc: [phone] 04/18/2022 11:46 AM Liss Mosley is a 56 y.o. female who was referred for evaluation and preparation for potential bariatric surgery. Liss was seen for 60 minutes. Patient was alone, and was seen Telehealth. Liss Mosley gave permission for and was seen for today's appointment with a Telehealth visit. During this visit they were located at work in [place]. Liss Mosley is aware that for any urgent matter they can call [phone].. RECOMMENDATION BASED ON PSYCHOLOGICAL EVALUATION YELLOW - Based on the information gathered during this assessment, Liss Mosley would benefit from additional health behavior change before she is ready to proceed with surgery. Specifically, Liss would benefit from the following to assist with preparing for bariatric surgery: ?? Continue engaging in health promoting behaviors Continue behavioral changes, especially: ?? eating and drinking by 30 minutes. Don???t bring a drink to the table, decrease amount over time (e.g., ?? glass, then ?? glass, then ?? glass, etc), avoid really dry foods/try to eat moist foods, set a timer (can taper up gradually), leave notes for yourself (on the table, refrigerator, and cabinet doors tend to be good places), minimize salty foods, chew food more to produce more saliva ?? Sticking to a consistent meal pattern. Set a regular schedule to the extent possible, use liquidmeals as a substitute if you don???t like heavy food in the morning, talk with boss/coworkers/family about the need for regular eating times, ?? Sipping water. Use a sippy cup, freeze a partially filled bottle of water and sip as it melts, use a sports bottle with a pop-up lid, keep water available at all times, set timer to remind self totake sips if needed, don???t wait until you???re thirsty to drink The follow up plan is as follows: 1 mo f/u SUMMARY The decision noted above is based on the followin. Liss has made significant weight loss attempts in the past, but without lasting success. 2. Liss experienced little mental health problems in the past year. 3. Liss experienced little mental health problems earlier in life. 4. Liss is not engaging in problematic eating behaviors. 5. Liss is knowledgeable about the surgery. 6. Liss's motivation for surgery is: good 7. Liss's social support is: good 8. Liss is aware of expected surgery weight loss with surgery. 9. Liss is aware of the habit changes that will need to occur and is actively engaged in changing those now. 10. Liss does not have a history of adherence/attendance issues. DIAGNOSIS (based on information gathered in this evaluation) Obesity The above assessment and plan was based on the following information obtained during the appointment: SOCIAL HISTORY Household composition: patient Relationship status: Single. Quality of relationship: N/a Progeny: Children: 2 Grandchildren: 4 Quality of relationship with children: supportive. 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 Sleeping about 8-9 hrs Pain none Anxiety 3/10, 10= worst. Therapy in the past has helped her learn skills to cope with worry. Depression 4/10, 10 = worst Other anxiety symptoms: Panic attacks: No Social anxiety: No History of trauma: No COPING STYLE Liss uses the following methods to cope with difficult circumstances: Using skills from therapy,learning to lt things go, talking to friends CURRENT SOCIAL SUPPORT NETWORK Primary support comes from adult child(earle) and friend(s) Quality of EMOTIONAL support: good Quality of TASK support: good Support network's reaction to bariatric surgery: mixed reactions amongst friends Concerns about possible sabotaging or relationship changes: No Identified post-surgery caregiver: adult child(earle) HEALTH BEHAVIORS ETOH: 1-2 drinks in a sitting every 1-2 weeks; Drugs: Marijuana - 1-2 times/year Nicotine: former smoker, quit 31 years ago. Had 1 cigarette several months ago Caffeine: 2 cups/day PROBLEM EATING BEHAVIORS History of binging (i.e., large amounts of food over a 2-hour period, feeling loss of control and overly full): no If h/o binging, last binge: N/a History of bulimic vomiting or other compensatory strategies (i.e., laxatives, diuretics, restricting): no If h/o bulimic vomiting or other compensatory strategies, last episode: N/a History of nighttime eating (i.e., skipping daytime meals and eating large amounts at dinner or waking at night to eat): yes If h/o nighttime eating, last episode: Several years History of grazing (i.e., continuously eating small snacks): no If h/o grazing, last episode: N/a History of mindless/stress eating (i.e., eating for emotional reasons rather than hunger): yes If h/o stress eating, last episode: 5 years ago History of over eating (i.e., eating to the point of being uncomfortably full): yes If h/o over eating, last episode: Last week - triggered by sweets. Currently avoiding bringing these foods into her home SCORES ON TFEQ TFEQ-18 Responses 06/07/2021 Take small helpings to control my weight Mostly false Start to eat when I feel anxious Mostly true When I start eating, I cant stop Mostly true When sad I often eat too much Mostly true Don't eat some foods because they make me fat Definitely false Being with someone who is eating often makes me want to also eat Mostly true When I feel tense or wound up, I often feel I need to eat Mostly false Often get so hungry that my stomach feels like a bottomless pi Mostly false I'm always so hungry that it's hard for me to stop eating before I finish the food on my plate Mostly false When I feel lonely, I console myself by eating Definitely true Consciously hold back at meals to keep from gaining weigh Mostly false When I smell appetizing food or see a delicious dish, I find it very difficult to keep from eating even if I've just finished a meal Mostly true I'm always hungry enough to eat at any time Mostly true If I feel nervous, I try to calm down by eating Mostly true When I see something that looks very delicious, I often get so hungry that I have to eat right awayMostly false I eat when depressed Mostly true Go on eating binges though not hungry Sometimes How often do you feel hungry Sometimes between meals TFEQ - Uncontrolled Eating (UE) 51.85 TFEQ-Cognitive Restraint (CR) 22.22 TFEQ-Emotional Eating 66.67 PAST /PRESENT EFFORTS AT BEHAVIOR CHANGE Initial Weight: 305 lbs (?) Current Weight as of 02/28/2022: 280 lbs Weight changes: 25 lbs Liss has used the following strategies to lose weight in the past: fad diets Had difficulties keeping weight off due to: not sustainable changes Liss is currently using these weight reduction strategies and habits to lose weight: tracking, support HIGH RISK SITUATIONS Specific high-risk times and places where Liss is likely to eat more include: when alone Coping strategies: Yes is intentional about spending time with others BARIATRIC SURGERY Type of surgery Liss prefers: sleeve Length of time considering surgery: 1 year(s) Liss is 80% convinced to have this surgery (100%=?? sign me up tomorrow?? ). Mixed feelings: Yes worried about hair loss Knowledge of the procedure: Spoke to her medical team, spoke to people who had the surgery - friends, looked on line MOTIVATION FOR SURGERY Important to have surgery right now: improve quality of life, improve mobility REALISTIC POSTSURGICAL GOALS/EXPECTATIONS Excess Weight: 129.8 50% Excess Weight Loss: 64.9 or 215 TBW Liss???s weight loss goal after surgery: doesn't have a goal - focused on improved wellbeing. Goal consistent with average expected weight loss of approximately 50% of weight with gastric bypass (or 40% of weight with sleeve gastrectomy): yes POST SURGERY EATING HABIT CHANGES AND READINESS Awareness of the following eating habit changes and current extent of practice (50%=half meals/week; 100%= every meal/week) is: ??? Eating slowly, taking 20-30 min to complete a meal: Aware of the need and practicing about 70% of the time and has been practicing at this rate for about 2-3 month(s). ??? eating and drinking by 30 minutes: Aware of the need and practicing about 50% of the time and has been practicing at this rate for about 3 month(s). ??? Eating smaller quantities: Aware of the need and practicing about 100% of the time and has been practicing at this rate for about 2-3 month(s). ??? Protein at each meal (should be eating it first): Aware of the need and practicing about 80% of the time and has been practicing at this rate for about 2-3 month(s). ??? Sipping 6-8 8oz-glasses of water slowly: Aware of the need and practicing about 50% of the time and has been practicing at this rate for about 2-3 month(s). Other beverages: coffee, tea (decaf), ??? Following a consistent meal pattern: Aware of the need and practicing about 100% of the time during the week. Struggles on the weekend. ??? Regular exercise: Aware of the need of regular exercise and recumbent bike 1 mile/day. Current implementation of habit changes: good ADHERENCE AND ATTENDANCE Number of No-show appointments in the past 6 months based on EMR (if possible): 0 Number of Cancelled appointments in the past 6 months based on EMR (if possible): 0 Reason for cancellations/no shows (if necessary to address): n.a Sleep Apnea? yes If yes, Night per week using CPAP: 7 Medication adherence - how many days in the past 7 did you miss any of your medications?: 1 Potential barriers to treatment compliance (10-14 day f/u with PCP, 1 mo f/u with team; 4 mo f/u; yearly f/u): none. Habit changes: Current stressors or anticipated stressful events that might interfere with Liss focusing on necessary habit changes before or after surgery include: none. Severity of stressor(s: n/a MENTAL STATUS Appearance: within normal limits Behavior: within normal limits Speech: within normal limits Affect: mood congruent Thought content/ process: within normal limits and goal directed Cognitive function: While not formally tested, function appears to be WNL The assessment and plan for Liss Mosley are detailed at the beginning of this report. documented in this encounter Plan of Treatment Upcoming Encounters Date Type Department Care Team (Late st Contact Info) Description 04/13/2024 3:20 PM EST Office Visit Dermatology at [facility] [address] [place] [phone] Felicitas Llanes MD [facility] DR MO[address]STA [place] [address] 04/26/2024 4:00 PM EST Office Visit [place] [address] Denia Xiao APRN [facility] [place] [address] documented as of this encounter Goals Goal Patient Goal Type Associated Problems Recent Progress Patient-Stated? Author movement Exercise No Arsh So Note: Try cardio chair exercises. Health Autopsy Assistant will send links to videos. Self [...] for more food at the 20 minute rbeeka self-awareness Lifestyle No Arsh So Note: Practice mindful eating, the pause (STOP, and urge surfing. Health Autopsy Assistant will mail hand-outs. documented as of this encounter Visit Diagnoses Diagnosis Class 3 severe obesity with body mass index (BMI) of 45.0 to 49.9 in adult, unspecified obesity type, unspecified whether serious comorbidity present documented in this encounter Care Teams Management Sme Relationship Specialty Start Date End Date Carolyn Christianson APRN PCP - General Family Medicine 12/21/20 10/02/22 documented as of this encounter
--- OUTSIDE RECORDS SUMMARY | 2024-03-20 11:53 | XMS_ITS | Encounter Summary ---
Author Organization [facility] Address [facility] [place] [address] Care Team Providers Care Software Consultant Name Role Phone Meghan Carolynlm Baugh APRN Primary Care Provider [phone] [phone] Encounter Details Date Type Department Care Team (Late st Contact Info) Description 05/23/2022 Notes [place] [address] Denia Khalil MD [facility] DR MODESTA [facility] [address] Social History Tobacco Use Types Packs/Day Years [...] 3:20 PM EST Office Visit Dermatology at [facility] [address] [place] [phone] Felicitas Llanes MD [facility] DR [address]STA [place] [address] 04/26/2024 4:00 PM EST Office Visit [place]phrology [place] [address] Denia Xiao APRN [facility] [place] [address] documented as of this encounter Goals Goal Patient Goal Type Associated Problems Recent Progress Patient-Stated? Author movement Exercise No Arsh So Note: Try cardio chair exercises. Health Electronic Service Technician will send links to videos. Self [...] the pause (STOP, and urge surfing. Health Electronic Service Technician will mail hand-outs. documented as of this encounter Visit Diagnoses Not on filedocumented in this encounter Care Teams Software Consultant Relationship Specialty Start Date End Date Carolyn Christianson APRN PCP - General Family Medicine 12/21/20 10/02/22 documented as of this encounter
--- OUTSIDE RECORDS SUMMARY | 2024-03-20 11:53 | XMS_ITS | Encounter Summary ---
Author Organization [facility] [place] [address] Care Team Providers Care Director Call Name Role Phone Carolyn Christianson APRN Primary Care Provider [phone] [phone] Reason for Visit * Reason Onset Date Comments Appointment 07/09/2021 Encounter Details Date Type Department Care Team (Late st Contact Info) Description 07/09/2021 Telephone Weight and Wellness at [facility] [address] [place] [address] Lilly Mosquera Appointment Social History Tobacco Use Types Packs/Day [...] encounter Miscellaneous Notes * Telephone Encounter - Lilly Mosquera - 07/09/2021 9:34 AM EDT Return in about 4 weeks (around 07/20/2021) for Health Greenhouse Florist, 1 mo, Zoom. * Telephone Encounter - Lilly Mosquera - 07/09/2021 9:24 AM EDT Return in about 2 months (around 08/22/2021) for Telehealth. (Arlin) documented in this encounter Plan of Treatment Upcoming Encounters Date Type Department Care Team (Late st Contact Info) Description 04/13/2024 3:20 PM EST Office Visit Dermatology at [facility] [address] [place] [address] Felicitas Llanes MD [facility] [address] [place] [address] 04/26/2024 4:00 PM EST Office Visit [place] [address] Denia Xiao APRN [facility] [place] [address] documented as of this encounter Goals Goal Patient Goal Type Associated Problems Recent Progress Patient-Stated? Author movement Exercise No Arsh So Note: Try cardio chair exercises. Health Greenhouse Florist will send links to videos. Self monitoring [...] filedocumented in this encounter Care Teams Director Call Relationship Specialty Start Date End Date Carolyn Christianson APRN PCP - General Family Medicine 12/21/20 10/02/22 documented as of this encounter
--- OUTSIDE RECORDS SUMMARY | 2024-03-20 11:53 | XMS_ITS | Encounter Summary ---
Author Organization [facility] [place] [address] Care Team Providers Care Risk Compliance Manager Name Role Phone Carolyn Christianson APRN Primary Care Provider [phone] [phone] Encounter Details Date Type Department Care Team (Latest Contact Info) Description 06/07/2021 Travel Social History Tobacco Use Types Packs/Day [...] 3:20 PM EST Office Visit Dermatology at [facility] [address] [place] [address] Felicitas Llanes MD [facility] DR [address] [place] [address] 04/26/2024 4:00 PM EST Office Visit [place] [address] Denia Xiao APRN [facility] [place] [address] documented as of this encounter Goals Goal [...] on filedocumented in this encounter Care Teams Risk Compliance Manager Relationship Specialty Start Date End Date Carolyn Christianson APRN PCP - General Family Medicine 12/21/20 10/02/22 documented as of this encounter
--- OUTSIDE RECORDS SUMMARY | 2024-03-20 11:53 | XMS_ITS | Encounter Summary ---
[place] [address] Care Team Providers Care Senior Lead Software Engineer Name Role Phone Carolyn Christianson APRN Primary Care Provider [phone] [phone] Encounter Details Date Type Department Care Team (Late st Contact Info) Description 03/18/2022 Telephone [place] [phone] Tamara Knight Social History Tobacco Use Types [...] * Telephone Encounter - Tamara Knight - 03/18/2022 9:52 AM EST Left message for Liss to call us back to go over her Bariatric enrollment forms. We need to go over the 6 months of dietary counseling, 5 % pre-operative weight loss requirement (patient stated weight at time of intro is 277.8 - weight loss requirement is 13.89 pounds making her weight loss goalof 263.9 which must be met in order for her insurance to consider her for surgery). We also need todo the TESSA screening with her. She is already using weight and wellness and has started counseling.We must use her 12/20/2021 visit as her starting point as her insurance requires 6 consecutive months. She will also need to collect the rest of the program requirements as she does not use the system for her routine care documented in this encounter Plan of Treatment Upcoming Encounters Date Type Department Care Team (Late st Contact Info) Description 04/13/2024 3:20 PM EST Office Visit Dermatology at [facility] [address] [place] [address] Felicitas Llanes MD [facility] [address] MO[address]STA [place] [address] 04/26/2024 4:00 PM EST Office Visit [place] [address] Denia Xiao APRN [facility] [place] [address] documented as of this encounter Goals Goal Patient Goal Type Associated Problems Recent Progress Patient-Stated? Author movement Exercise No Arsh So Note: Try cardio chair exercises. Health Ceramic Artist will send links to videos. Self monitoring [...] the pause (STOP, and urge surfing. Health Ceramic Artist will mail hand-outs. documented as of this encounter Visit Diagnoses Not on filedocumented in this encounter Care Teams Senior Lead Software Engineer Relationship Specialty Start Date End Date Carolyn Christianson APRN PCP - General Family Medicine 12/21/20 10/02/22 documented as of this encounter
--- OUTSIDE RECORDS SUMMARY | 2024-03-20 11:53 | XMS_ITS | Encounter Summary ---
Author Organization [facility] [place] [address] Care Team Providers Care Monitor Technician Name Role Phone Carolyn Christianson APRN Primary Care Provider [phone] [phone] Encounter Details Date Type Department Care Team (Late st Contact Info) Description 02/01/2022 Refill Weight and Wellness at [facility] [address] [place] [address] Lilly Mosquera Insulin resistance (Primary Dx) Social History Tobacco Use Types Packs/Day Years [...] Telephone Encounter - Brittni Mccoy RN - 02/03/2022 11:29 AM EST Last filled (date): 12/20 Quantity and # refills: 2mL, 0 Last visit seen: 12/20 Next visit: 02/28 PDMP Reviewed [] Was last appointment no show (date)? If overdue for visit and nothing is currently scheduled, when was visit due? If overdue: message sent to patient to schedule visit [] Other notes: * Telephone Encounter - Lilly Mosquera - 02/01/2022 4:39 PM EDT Pt requesting refill for Trulicity documented in this encounter Plan of Treatment Upcoming Encounters Date Type Department Care Team (Late st Contact Info) Description 04/13/2024 3:20 PM EST Office Visit Dermatology at [place] [address] [place] [address] Felicitas Llanes MD [facility] [address] [address] 04/26/2024 4:00 PM EST Office Visit [place] [address] Denia Xiao APRN [facility] [place] [address] documented as of this encounter Goals Goal Patient Goal Type Associated Problems Recent Progress Patient-Stated? Author movement Exercise No Arsh So Note: Try cardio chair exercises. Health Sludge Filtration Operator will send links to videos. Self [...] the pause (STOP, and urge surfing. Health Sludge Filtration Operator will mail hand-outs. documented as of this encounter Visit Diagnoses Diagnosis Insulin resistance- Primary Dysmetabolic Syndrome X documented in this encounter Care Teams Monitor Technician Relationship Specialty Start Date End Date Carolyn Christianson APRN PCP - General Family Medicine 12/21/20 10/02/22 documented as of this encounter
--- OUTSIDE RECORDS SUMMARY | 2024-03-20 11:53 | XMS_ITS | Encounter Summary ---
[place] [address] Care Team Providers Care Concrete Pointer Name Role Phone Carolyn Christianson APRN Primary Care Provider [phone] [phone] Encounter Details Date Type Department Care Team (Late st Contact Info) Description 05/20/2022 Telephone [place] [address] Lilly Mosquera Social History Tobacco Use Types [...] encounter Miscellaneous Notes * Telephone Encounter - Birttni Mccoy RN - 05/21/2022 1:33 PM EST Called and LVM. 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 Pt would like a call back withadvice on how to proceed. documented in this encounter Plan of Treatment Upcoming Encounters Date Type Department Care Team (Late st Contact Info) Description 04/13/2024 3:20 PM EST Office Visit Dermatology at [place] [address] [place] [phone] Felicitas Llanes MD [facility] DR [address] [address] 04/26/2024 4:00 PM EST Office Visit [place] [address] Denia Xiao APRN [facility] [place] [address] documented as of this encounter Goals Goal Patient Goal Type Associated Problems Recent Progress Patient-Stated? Author movement Exercise No Arsh So Note: Try cardio chair exercises. Health Building Components Designer will send links to videos. Self [...] the pause (STOP, and urge surfing. Health Building Components Designer will mail hand-outs. documented as of this encounter Visit Diagnoses Not on filedocumented in this encounter Care Teams Concrete Pointer Relationship Specialty Start Date End Date Carolyn Christianson APRN PCP - General Family Medicine 12/21/20 10/02/22 documented as of this encounter
--- OUTSIDE RECORDS SUMMARY | 2024-03-20 11:53 | XMS_ITS | Encounter Summary ---
Author Organization [facility] Address [facility] [place] [address] Care Team Providers Care Monitoring Specialist Name Role Phone Carolyn Christianson APRN Primary Care Provider [phone] Encounter Details Date Type Department Care Team (Latest Contact Info) Description 06/10/2022 1:00 PM EDT TH Visit (TeleHealth) [place] [address] Susan Ulloa, [facility] [place] [address] Class 3 severe obesity with body mass [...] - Inhaled Oxygen Concentration - - Weight 126.6 kg (279 lb) 06/10/2022 1:00 PM EDT Height 165.1 cm (5' 5) 06/10/2022 1:00 PM EDT Body Mass Index 46.43 06/10/2022 1:00 PM EDT documented in this encounter Patient Instructions * Patient Instructions* Susan Ulloa RD - 06/10/2022 1:00 PM EDT It was great to chat with you, Liss . Below are goals discussed today as well as in past visits.Please reach out with a [employer] Online Ordering message if you have any questions or concerns. Susan Goals Actrivity Open your yoga rusty and see if you might be interested in trying this gentle form of movement to activate your muscles. movement Try cardio chair exercises. Health Bill Cutter will send links to videos. Nutrition goals updated 3.13.23 Continue to abstain from alcohol, imagining that [...] focus and attention right before and during dinner,make the meal last 20-30 minutes. Notice satisfaction / physical hunger and allow for more food at the 20 minute rebeka Self monitoring Keep food log until you are seen by the dieititian. Record everything you eat or drink, include time eaten and any emotional changes that are significant. self-awareness Practice mindful eating, the pause (STOP, and urge surfing. Health Bill Cutter will mail hand-outs. documented in this encounter Progress Notes * Susan Ulloa RD - 06/10/2022 1:00 PM EDT Nutrition Intervention for Weight Management Initial RD visit with KRISTYN Blair 1965 Patient confirms visit conducted while patient was in the following state: [place] Weight Today: 279 lb Wt Readings from Last 3 Encounters: 06/19/22 124.7 kg (275 lb) 06/10/22 126.6 kg (279 lb) 04/25/22 127.8 kg (281 lb 12.8 oz) BMI Readings from Last 3 Encounters: 06/19/22 45.76 kg/m?? 06/10/22 46.43 kg/m?? 04/25/22 46.89 kg/m?? Interview: Had success when first started with a 24-hour fast. Last meal Friday evening, fasted until Sat evening- started last week and went well. Leivasy good on vacation eating and drinking Portions are fine at lunch- portions are managed for her Eats dinner almost as soon as she gets home (4-5p). If she waits too long feels really hungry and hard to stop (happens once or twice a week). Doesn't have a good option for something to snack on. Weight Loss History: See previous notes from this typewriter repairer and [facility] provider for full account Typical Dietary Intake: B: work days: Protein shake along with part of kid's breakfast if it's a good option (pretty much daily protein shake) Non-work days: a couple hard-boiled eggs OR fried egg sandwich. Smoothie with protein powder L: what the kids are eating. Once a week it's salad- today (lettuce, peppers, cucumber, tomato) with a protein. Friday was cheeseburger with lettuce, tomato, onion on top (only ate half the bun). With Wedge potatoes and a fruit S: snacked on some celery and shrimp cocktail D: last night was homemade soup with the leftover chicken, the night before was roast chicken S: Typical Beverages: [] coffee (Cups per day: [] half and half (unflavored) [] flavored creamer (sugar) [] flavored creamer (sugar-free) [] added sugar - (total: [] added non-caloric sweetener [x] water - (total: has gone up to 90-100 ounces [x] plain [x] crystal light or other sugar-free additive [] Momence [] Alcohol (Amount per week: has been abstaining except on vacation. Was thinking about what it would be like after surgery- friend she was visiting was super supportive [] Diet soda [] Diet other drink [] Regular soda [] Juice [] Lemonade [] milk Appetite/Hunger: [x] feels managed with foods/meals outlined above [] discussed meal/snack schedule adjustment today- see goals [] patient identifies eating for reasons other than hunger- see interview above [x] Current food Tracking (1200 calorie goal in Myplate tracker, has been meeting mostly. Viewed protein information today, will start to look at this as well- see goals) [] discussed potential benefit starting food tracking - see goals Patient Goals from Team: Goals ??? Actrivity Open your yoga rusty and see if you might be interested in trying this gentle form of movement to activate your muscles. ??? movement Try cardio chair exercises. Health Bill Cutter will send links to videos. ??? Nutrition goals 05/06/22 1. Continue to abstain from alcohol, imagining that as the reality post-surgery, that is our recommendation (no alcohol) 2. Try half or all of a protein drink (Premiere is one option; Rockin protein; Fairlife; 20-30 grams of protein and less than 6 grams of sugar) - have this at breakfast time instead of or in additionto parts of the meal that's served. 3. Pack an alternative just in case you don't want to eat the protein that is served and maybe a piece of fruit. Can of tuna, German yogurt, cottage cheese, hard-boiled eggs IF you need an alternativeto the meat if you don't like or don't digest well 4. Eat first meal no later than noon on the weekend and try to plan for 3 eating events in total valeriy weekend day. Be prepared to eat 3 times on a weekend day. 5. Continue tracking in myplate 6. Figure out how to be more consistent with sipping in the morning at work. As you start this new habit of bringing the protein drink, also bring one with water. Set a phone alarm or a hydration appto remind you to drink consistently throughout the weekend. Mil lemon or crystal light is fine! 7. To asses portions: Try and have focus and attention right before and during dinner, make the meal last 20-30 minutes. Notice satisfaction / physical hunger and allow for more food at the 20 minutemark ??? Self monitoring Keep food log until you are seen by the dieititian. Record everything you eat or drink, include time eaten and any emotional changes that are significant. ??? self-awareness Practice mindful eating, the pause (STOP, and urge surfing. Health Bill Cutter will mail hand-outs. Bariatric eating behaviors introduced or reviewed: [x] Stop eating at comfortable full point (eating [...] to ~1 cup (caffeine) prior to surgery [] Reduce alcohol, ideally avoid [] Currently smoking? 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 Ongoing problem-solving continued today- see goals. Nutrition Goals updated today: Goals Addressed This Visit's Progress ??? Nutrition goals updated 3 8. Continue to abstain from alcohol, imagining that as the reality post-surgery, that is our recommendation (no alcohol) 9. Continue protein drink in place of breakfast or with parts of breakfast. 10. Keep up great work eating first meal no later than noon on the weekend and try to plan for 3 eating events in total on a weekend day. 11. Continue tracking in myplate. Start to look at total grams protein (Food diary section)- aim for a minimum of 60 grams per day. 12. Aim to choose ONE grain choice at lunch if two are offered (or half of each). 13. Plan for a back-up snack if dinner takes a while: Focus on veggies and protein (nuts- avoid eating directly out of the package), something quick like baby carrots or ramsey pepper- things you mightbe prepping for dinner) 14. Continue to sip throughout the morning at work. 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 Mil lemon or crystal light is fine! 15. Continue to watch dinner portions: Try and have focus and attention right before and during dinner, make the meal last 20-30 minutes. Notice satisfaction / physical hunger and allow for more foodat the 20 minute rebeka Monitor/Evaluate: Return in about 2 months (around 08/10/2022) for luli [place]. [x] Patient has met requirement of 3 consecutive monthly nutrition visits but agrees that ongoing support would be helpful and feasible. Above determined to the best ability of this typewriter repairer. Patient will contact bariatric surgery team for any official determination about about scheduling and insurance requirements ( ) Thank you Susan Ulloa RD [facility] 30 minutes were spent in visit today, including contact with patient, chart review, and documentation documented in this encounter Plan of Treatment Upcoming Encounters Date Type Department Care Team (Late st Contact Info) Description 04/13/2024 3:20 PM EST Office Visit Dermatology at [facility] [address] [place] [address] Felicitas Llanes MD [facility] DR [address] [address] 04/26/2024 4:00 PM EST Office Visit Nephrology [place] [address] Denia Xiao APRN [facility] [place] [address] documented as of this encounter Goals Goal Patient Goal Type Associated Problems Recent Progress Patient-Stated? Author movement Exercise No Arsh So Note: Try cardio chair exercises. Health Bill Cutter will send links to videos. Self monitoring [...] the pause (STOP, and urge surfing. Health Bill Cutter will mail hand-outs. documented as of this encounter Visit Diagnoses Diagnosis Class 3 severe obesity with body mass index (BMI) of 45.0 to 49.9 in adult, unspecified obesity type, unspecified whether serious comorbidity present documented in this encounter Care Teams Monitoring Specialist Relationship Specialty Start Date End Date Carolyn Christianson APRN PCP - General Family Medicine 12/21/20 10/02/22 documented as of this encounter
--- OUTSIDE RECORDS SUMMARY | 2024-03-20 11:53 | XMS_ITS | Encounter Summary ---
[facility] [place] [address] Care Team Providers Care Information Consultant Name Role Phone Carolyn hCristianson APRN Primary Care Provider [phone] Encounter Details Date Type Department Care Team (Late Contact Info) Description 01/14/2022 Telephone [place] [address] Meryl-Mayuri Dye Social History Tobacco Use Types Packs/Day Years [...] encounter Miscellaneous Notes * Telephone Encounter - Mayuri Sheth - 01/14/2022 8:26 AM EDT Returned patients call voicemail was full unable to leave message. documented in this encounter Plan of Treatment Upcoming Encounters Date Type Department Care Team (Late st Contact Info) Description 04/13/2024 3:20 PM EST Office Visit Dermatology at [facility] [address] [place] [id number] Felicitas Llanes MD [facility] DR MODESTA [place] [address] 04/26/2024 4:00 PM EST Office Visit Nephrology Hypertension at [facility] [place] [address] Denia Xiao APRN [facility] [place] [address] documented as of this encounter Goals Goal Patient Goal Type Associated Problems Recent Progress Patient-Stated? Author movement Exercise No Arsh So Note: Try cardio chair exercises. Health Photography Assistant will send links to videos. Self [...] the pause (STOP, and urge surfing. Health Photography Assistant will mail hand-outs. documented as of this encounter Visit Diagnoses Not on filedocumented in this encounter Care Teams Information Consultant Relationship Specialty Start Date End Date Carolyn Christianson APRN PCP - General Family Medicine 12/21/20 10/02/22 documented as of this encounter
--- OUTSIDE RECORDS SUMMARY | 2024-03-20 11:53 | XMS_ITS | Encounter Summary ---
Author Organization [facility] [place] [address] Care Team Providers Care Deck And Hull Assembler Name Role Phone Meghan Carolynleon Baugh APRN Primary Care Provider [phone] Encounter Details Date Type Department Care Team (Late st Contact Info) Description 12/29/2021 External Results Weight and Wellness at [address] [id number] Brittni Mccoy, RN Social History Tobacco Use Types Packs/Day [...] 3:20 PM EST Office Visit Dermatology at [address] [phone] Felicitas Llanes MD [facility] DR MODESTA [place] [address] 04/26/2024 4:00 PM EST Office Visit [place] [address] Denia Xiao APRN [facility] [place] [address] documented as of this encounter Goals Goal Patient Goal Type Associated Problems Recent Progress Patient-Stated? Author movement Exercise No Arsh So Note: Try cardio chair exercises. Health Blister Packaging Machine Operator will send links to videos. [...] the pause (STOP, and urge surfing. Health Blister Packaging Machine Operator will mail hand-outs. documented as of this encounter Procedures Procedure Name Priority Date/Time Associated Diagnosis Comments [facility] EXTERNAL LABS 2 Routine 12/24/2021 documented in this encounter Results * (ABNORMAL) [facility] Labs 2 - External (12/24/2021) Hemoglobin A1c 5.4 Glucose Fasting 82 Blood Urea Nitrogen 32(H) Creatinine 0.8 Est Glomerular Filtration Rate 85.35 Thyroid Stimulating Hormone 0.27(L) 12/24/2021 Historical Provider MD EXTERNAL [facility] documented in this encounter Visit Diagnoses Not on filedocumented in this encounter Care Teams Deck And Hull Assembler Relationship Specialty Start Date End Date Carolyn Christianson APRN PCP - General Family Medicine 12/21/20 10/02/22 documented as of this encounter
--- OUTSIDE RECORDS SUMMARY | 2024-03-20 11:53 | XMS_ITS | Encounter Summary ---
Author Organization [facility] [place] [address] Care Team Providers Care Chemical Production Technician Name Role Phone Carolyn Christianson APRN Primary Care Provider [phone] Encounter Details Date Type Department Care Team (Latest Contact Info) Description 02/19/2022 Travel Social History Tobacco Use Types Packs/Day [...] 3:20 PM EST Office Visit Dermatology at [facility] [address] [place] [address] Felicitas Llanes MD [facility] DR MODESTA [place] [address] 04/26/2024 4:00 PM EST Office Visit Nephrology [place] [address] Denia Xiao APRN [facility] [place] [address] documented as of this encounter Goals Goal Patient Goal Type Associated Problems Recent Progress Patient-Stated? Author movement Exercise No Arsh So Note: Try cardio chair exercises. Health Systems Analysis Manager will send links to videos. Self [...] the pause (STOP, and urge surfing. Health Systems Analysis Manager will mail hand-outs. documented as of this encounter Visit Diagnoses Not on filedocumented in this encounter Care Teams Chemical Production Technician Relationship Specialty Start Date End Date Carolyn Christianson APRN PCP - General Family Medicine 12/21/20 10/02/22 documented as of this encounter
--- OUTSIDE RECORDS SUMMARY | 2024-03-20 11:53 | XMS_ITS | Encounter Summary ---
Author Organization [facility] Address [facility] [place]ney [place] [address] Care Team Providers Care Skin Diver Name Role Phone Carolyn Christianson APRN Primary Care Provider [phone] Reason for Visit * Consultation (Routine) - Closed Specialty Diagnoses / Procedures Referred By Yury thornton Referred To Contact Dermatology Diagnoses Melanocytic nevus, unspecified location Carolyn Christianson APRN [address] [place] [address] [facility] Dermatology [address] [place] [address] Referral ID Status Reason Start Date Expiration Date V isits Requested Visits Authorized [id number] Closed Consult, Test & Treat 06/04/2021 06/04/2022 6 6 Encounter Details Date Type Department Care Team (Late st Contact Info) Description 08/22/2021 4:20 PM EDT Office Visit Dermatology at [facility] [address] [place] [address] Na Gerard MD Hydrocystoma; Kelly angioma; SK (seborrheic keratosis); Skin neoplasm; Dermatofibroma; Hidrocystoma; Lentigines Social History Tobacco Use Types Packs/Day Years [...] as of this encounter Progress Notes * Na Gerard MD - 08/22/2021 4:20 PM EDT Images from the original note were not included. 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 Patient is referred to the clinic at the request of Carolyn Christianson for lesion on the right leg for ~years that has gotten funky. Lesion has grown and become irregularly colored and irriated. Review of Systems: General: Feeling well. Skin: No other skin concerns. Medications: Reviewed in eD-H Allergies: Reviewed in [...] findings below. Genitalia not examined. Assessment/Plan #. Neoplasm of Uncertain Behavior of Skin EXAM: on the right anterior thigh there is an irregular oblong pink and brown papule with peripheral verrucous component and medial pink papule - DDX: favor iSK rule out collision lesion - Joint decision to pursue shave biopsy today for further histologic evaluation as below. Shave Biopsy Procedure Note Location: Right anterior thigh Discussed with patient diagnostic options, including the risks and benefits of observation, empirictreatment, and biopsy, including but not limited to recurrence, cosmesis (scar, dyspigmentation), pain, bleeding, infection. Patient verbally understands and elects biopsy. -Time Out Performed: Full Name, , and site(s) confirmed with patient -Site was prepped with isopropyl alcohol. Local anesthesia with 1% lidocaine + 1:100,0000 epinephrine. Lesion biopsied with shave technique using ana blade. -Hemostasis achieved with aluminum chloride. <1ml blood loss. No complications. Patient tolerated the procedure well. Specimen(s): Placed in formalin and sent to Pathology for histologic examination. Wound was dressed. Post-op care: daily gentle cleansing of biopsy site, Vaseline and bandage until healed. #. Dermatofibroma EXAM: on the right shoulder there is a pink brown firm papule. -pt reassured that this is a benign condition and no further intervention required #. 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 Clear fluid expressed. #. Kelly Angiomas EXAM: scattered on the trunk and extremities, there are multiple, well- circumscribed, bright red macules and papules with smooth surfaces. - Benign, vascular nature discussed. No further intervention indicated at this time. #. Seborrheic keratoses EXAM: scattered on the trunk and extremities, there are multiple, well- circumscribed, stuck-on, waxy papules and plaques with a cerebriform surface and milia-like cysts apparent on dermatoscopic examination. - Benign nature discussed. No further intervention indicated. #. Solar lentigines EXAM: concentrated in sun-exposed areas (distal upper and lower extremities, shoulders, face), there are numerous, light brown macules with moth-eaten borders and homogeneous pigmentation. - Association with prior sun-exposure reviewed. - Recommend daily photoprotection with minimum SPF 30 or above, reapplied every 2 hours. Figure 1 Photo(s) taken and charted with patient's verbal consent. Other: ??? Sun protection discussed (protective clothing and SPF30+ broad-spectrum sunscreen) RTC: Pending pathology []Note routed to junior legal secretary []Recall placed in scheduling system []Appointment scheduled at checkout Scribe attestation: SARAH Her has performed the documentation for this encounter inthe presence of and acting as a scribe for Na Gerard MD. I performed the above scribed service and agree with the accuracy of the documentation in this encounter. Reviewed and signed by: Na Gerard MD Dermatology [facility] Staff life enrichment assistant: Ree Acosta MD Department of Dermatology [facility] * Ree Acosta MD - 08/22/2021 4:20 PM EDT I was the supervising physician working with Dermatology Resident in the dermatology clinic during this patient visit. The level of Resident supervision for this patient visit was indirect supervision with direct supervision immediately available. (definition: [facility] Policy Statement on Graduate edical Education, Supervision of Graduate Medical Trainees) I was immediately available to the Dermatology Resident for questions and discussion regarding this visit. I have reviewed the encounter note details. REE ACOSTA MD Staff Physician * Na Gerard MD - 08/22/2021 4:20 PM EDT Patient sent letter informing of benign results. No further treatment indicated. documented in this encounter Plan of Treatment Upcoming Encounters Date Type Department Care Team (Late st Contact Info) Description 04/13/2024 3:20 PM EST Office Visit Dermatology at [facility] [address] [place] [phone] Felicitas Llanes MD [facility] [address] [place] [address] 04/26/2024 4:00 PM EST Office Visit [place]ph[place] [phone] Denia Xiao APRN [facility] [place] [address] documented as of this encounter Goals Goal Patient Goal Type Associated Problems Recent Progress Patient-Stated? Author movement Exercise No Arsh So Note: Try cardio chair exercises. Health Social Work Assistant will send links to videos. Self [...] minute rebeka documented as of this encounter Procedures Procedure Name Priority Date/Time Associated Diagnosis Comments SURGICAL PATHOLOGY REPORT Routine 08/22/2021 5:02 PM EDT SPECIMEN TO PATHOLOGY Routine 08/22/2021 5:02 PM EDT Skin neoplasm documented in this encounter Results * Surgical Pathology Report (08/22/2021 5:02 PM EDT) Final Diagnosis [id number] ? Location: [facility] The signing pathologist has (i) examined the relevant preparation(s) for the specimen(s) and (ii) rendered or confirmed the diagnosis(es). . ?Surgical Pathology DIAGNOSIS Right anterior thigh, skin shave biopsy: - ??Seborrheic keratosis with verrucous features and focal features compatible with partial regression Electronically signed by: ?Sarah Wade MD Verified: ??08/24/2021 11:28 ??Dermatopatholo gist Performed at: ??-[facility] Dept. of [place]ology, [place], [place] SPECIMEN(S) SUBMITTED A - Right anterior thigh, skin shave biopsy (1) CLINICAL INFORMATION On the right anterior thigh there is an irregular oblong pink and brown papule with peripheral verrucous component and medial pink papule; DX: Favor ISK rule out collision lesion SPECIMEN PROCESSING A - Labeled/Fixative : Patient demographics, formalin. Quantity/Size: ??Single, 1.1 x 1.0 x 0.1 cm. Tissue Description: Shave of lock-white skin with an eccentric 0.6 x 0.4 cm nash-renee and granular papule. Sections/Process ing: Inked, quadrisected and entirely submitted in 2 cassettes as follows: ?A1: ??Tips ?A2: ??Body ??mnd 08/24/2021 11:28 AM EDT [facility] SPECIMEN FROM SKIN / Unknown 08/22/2021 5:02 PM EDT 08/22/2021 5:02 PM EDT Na Gerard MD PATHOLOGY/[place] [address] * Specimen to Pathology (08/22/2021 5:02 PM EDT) AP Specimen 08/22/2021 5:02 PM EDT 08/22/2021 5:02 PM EDT Narrative [facility] - 08/22/2021 5:02 PM EDT Specimen requisition ordered. ??Separate Pathology report to follow Ree Acosta MD PATHOLOGY/[place] [address] documented in this encounter Visit Diagnoses Diagnosis Hydrocystoma Benign neoplasm of skin, site unspecified Kelly angioma Nevus, non-neoplastic SK (seborrheic keratosis) Other seborrheic keratosis Skin neoplasm Neoplasm of unspecified nature of bone, soft tissue, and skin Dermatofibroma Benign neoplasm of skin, site unspecified Hidrocystoma Benign neoplasm of skin, site unspecified Lentigines Other dyschromia documented in this encounter Care Teams Skin Diver Relationship Specialty Start Date End Date Carolyn Christianson, ALBA PCP - General Family Medicine 12/21/20 10/02/22 documented as of this encounter
--- OUTSIDE RECORDS SUMMARY | 2024-03-20 11:53 | XMS_ITS | Encounter Summary ---
Author Organization [facility] Address [facility] [place] [address] Care Team Providers Care Keypunch Operator Name Role Phone Carolyn Christianson APRN Primary Care Provider [phone] Encounter Details Date Type Department Care Team (Latest Contact Info) Description 04/15/2022 2:30 PM EST TH Visit (TeleHealth) [place] [phone] Susan Ulloa, [facility] [place] [address] Class 3 severe obesity with body mass [...] - - Weight 126.6 kg (279 lb) 04/15/2022 7:00 AM EST Height - - Body Mass Index 46.43 02/28/2022 3:33 PM EST documented in this encounter Patient Instructions * Patient Instructions* Susan Ulloa RD - 04/15/2022 2:30 PM EST It was great to chat with you, Liss . Below are goals discussed today as well as in past visits.Please reach out with a Countdown To Buy message if you have any questions or concerns. Susan Barriga Actrivity Open your yoga rusty and see if you might be interested in trying this gentle form of movement to activate your muscles. movement Try cardio chair exercises. Health Concierge Receptionist will send links to videos. Nutrition goals 04/15/22 Continue to abstain from alcohol, imagining that as the reality post-surgery, that is our recommendation (no alcohol) Try half or all of a protein drink (Premiere is one option; Rockin protein; Fairlife; 20-30 grams of protein and less than 6 grams of sugar) - try that just before the breakfast meal (at work) to seeif you can avoid eating too much (maybe put it in a plain cup to make it easier to sip during work) Continue eating the protein first at lunches, continue an alternative to the meat if you don't likeor don't digest well (Bahraini yogurt, cheese stick, egg,e tc.) Eat first meal no later than noon on the weekend and try to plan for 3 eating events in total on a weekend day. Be prepared to eat 3 times on a weekend day. Get back to tracking in the myplate rusty Set a phone alarm or a hydration rusty to remind you to drink consistently throughout the weekend. You can use crystal light, mil lemon, fresh or frozen fruit, and see about an insulated cup Self monitoring Keep food log until you are seen by the dieititian. Record everything you eat or drink, include time eaten and any emotional changes that are significant. self-awareness Practice mindful eating, the pause (STOP, and urge surfing. Health Concierge Receptionist will mail hand-outs. documented in this encounter Progress Notes * Susan Ulloa RD - 04/15/2022 2:30 PM EST Nutrition Intervention for Weight Management Initial RD visit with KRISTYN Blair 1965 Patient confirms visit conducted while patient was in the following state: [place] Weight Today: 279 lb on scale at home -266 lb is the weight loss req - Wt Readings from Last 3 Encounters: 02/28/22 127.4 kg (280 lb 14.4 oz) 01/23/22 125.6 kg (277 lb) 12/20/21 127.9 kg (281 lb 14.4 oz) BMI Readings from Last 3 Encounters: 02/28/22 46.74 kg/m?? 01/23/22 46.10 kg/m?? 12/20/21 46.91 kg/m?? Interview: Needs to lose additional weight feels like I'm flailing Knows about protein first, proper hydration. Wondering about after surgery? Really likes beans and lentils (these give her gas now). Some foods give her issues now (chocolate- diarrhea). Discussed potential for unknown food reactions, dumping syndrome, encouraged her to reach out to [facility] team with any other questions. Weight Loss History: See previous notes from this telegraphic typewriter operator chief and [facility] provider for full account Typical Dietary Intake: Work day (5 days a week) Black coffee on the way to work (16? oz) B: eats with kids at breakfast and lunch: Usually fruit, toast / cinnamon bun or waffles + sausage L: patricia steak with gravy and mashed pot, veg, fruit, roll (doesn't like this one) OR cheeseburger, chicken nuggets, hebrew fries. (always with a veg and fruit). Usually a little water, has been trying to separate S: a few nuts or mini candy bar (whatever is available there) or brings an apple or seth (or just tea) D: billie. And fam over so made chicken [place] with potato casserole and brocc, rolls (they took the extra pot and rolls) More typically veg and protein OR soup (homemade) (eats pretty early because hungry when gets home 5pm or so) S: usually some nuts 10/04:30 If not working usually: Noon-2pm first meal: Soup or casserole Maybe just a snack: nuts OR tortilla chips and salsa / trail mix Sometimes another snack Typical Beverages: [x] coffee (Cups per day: [] half and half (unflavored) [] flavored creamer (sugar) [] flavored creamer (sugar-free) [] added sugar - (total: [] added non-caloric sweetener [x] water - (total: [] plain [] crystal light or other sugar-free additive [x] [place] - working on reducing [] Alcohol (Amount per week: was having a glass of wine every night with dinner but not as much anymore- has some allergies [] Diet soda [] Diet other drink [] Regular soda [] Juice [] Lemonade [] milk Hot chocolate last night but that didn't sit well with her Appetite/Hunger: [x] feels managed with foods/meals outlined above [x] discussed meal/snack schedule adjustment today- see goals [] patient identifies eating for reasons other than hunger- see interview above [] Current food Tracking [x] discussed potential benefit starting food tracking - see goals Patient Goals from Team: Goals ??? Actrivity Open your yoga rusty and see if you might be interested in trying this gentle form of movement to activate your muscles. ??? movement Try cardio chair exercises. Health Concierge Receptionist will send links to videos. ??? Nutrition [...] ~ 1,475 for weight loss - Use [employer] food tracker - PRE-Track as muchas possible [...] the pause (STOP, and urge surfing. Health Concierge Receptionist will mail hand-outs. Bariatric eating behaviors introduced [...] either side [x] Sip rather than gulp [] Reduce coffee intake down to ~1 cup (caffeine) prior to surgery [x] Reduce alcohol, ideally avoid [] Currently smoking? [] Former smoker, quit date: (4 months nicotine-free prior to first surgery appointment) Activity: [] reviewed current goals [] updated goals Did not discuss today Barriers to Change: None identified at this time Nutrition Goals updated today: Goals Addressed This Visit's Progress ??? COMPLETED: Nutrition 06/07/2021 ??? Nutrition goals 04/15/22 1. Continue to [...] you don't like or don't digest well (Bahraini yogurt, cheese stick, egg,e tc.) 4. Eat first meal no later than noon on the weekend and try to plan for 3 eating events in total valeriy weekend day. Be prepared to eat 3 times on a weekend day. 5. Get back to tracking in the myTrustCloud rusty 6. Set a phone alarm or a hydration rusty to remind you to drink consistently throughout the weekend.You can use crystal light, mil lemon, fresh or frozen fruit, and see about an insulated cup Monitor/Evaluate: [x] Currently scheduled for: [] 1st consecutive monthly nutrition visit [x] 2nd consecutive monthly nutrition visit [x] 3rd consecutive monthly nutrition visit Above determined to the best ability of this telegraphic typewriter operator chief. Patient will contact bariatric surgery team for any official determination about about scheduling and insurance requirements ( ) Thank you Susan Ulloa RD [facility] 30 minutes were spent in visit today, including contact with patient, chart review, and documentation documented in this encounter Plan of Treatment Upcoming Encounters Date Type Department Care Team (Late st Contact Info) Description 04/13/2024 3:20 PM EST Office Visit Dermatology at [facility] [address] [place] [address] Felicitas Llanes MD [facility] [address] [place] [address] 04/26/2024 4:00 PM EST Office Visit [place] [address] Denia Xiao APRN [facility] [place] [address] documented as of this encounter Goals Goal Patient Goal Type Associated Problems Recent Progress Patient-Stated? Author movement Exercise No Arsh So Note: Try cardio chair exercises. Health Concierge Receptionist will send links to videos. Self monitoring [...] the pause (STOP, and urge surfing. Health Concierge Receptionist will mail hand-outs. documented as of this encounter Visit Diagnoses Diagnosis Class 3 severe obesity with body mass index (BMI) of 45.0 to 49.9 in adult, unspecified obesity type, unspecified whether serious comorbidity present Insulin resistance Dysmetabolic Syndrome X documented in this encounter Care Teams Keypunch Operator Relationship Specialty Start Date End Date Carolyn Christianson APRN PCP - General Family Medicine 12/21/20 10/02/22 documented as of this encounter
--- OUTSIDE RECORDS SUMMARY | 2024-03-20 11:53 | XMS_ITS | Encounter Summary ---
Author Organization [facility] [place] [address] Care Team Providers Care Telecom Network Manager Name Role Phone Carolyn Christianson APRN Primary Care Provider [phone] Encounter Details Date Type Department Care Team (Latest Contact Info) Description 12/21/2021 4:00 PM EDT TH Visit (TeleHealth) Weight and Wellness at [address] [phone] Arlin Mac RD [facility] [place] [address] Dietary counseling and surveillance Social History Tobacco [...] * Patient Instructions* Arlin Mac RD - 12/21/2021 4:00 PM EDT Goals Addressed This Visit's Progress Nutrition Nutrition Goals updated today: 12/21/21 TF [...] ~ 1,475 for weight loss - Use MyInterneer food tracker - PRE-Track as muchas possible - 1200 calorie at lowest 5. Aim to limit non-nutritive calories (for example chocolate and wine) to ~ 150 calories - reviewed this goal today; will aim for 1 glass 6. Use measuring tools for accuracy - yes documented in this encounter Progress Notes * Arlin Mac RD - 12/21/2021 4:00 PM EDT Nutrition Intervention for Weight Management Initial RD visit with KRISTYN Blair 1965 Telehealth / telephone visit conducted while patient was at home at the following address: [address] [place] [address] Weight Today: Wt Readings from Last 3 Encounters: 12/20/21 127.9 kg (281 lb 14.4 oz) 09/20/21 120.2 kg (265 lb) 08/20/21 122.5 kg (270 lb) BMI Readings from Last 3 Encounters: 12/20/21 46.91 kg/m?? 09/20/21 44.10 kg/m?? 08/20/21 44.93 kg/m?? Interview: Pt is pursuing bariatric surgery at this [facility] TKA in August 2021 Typical Dietary Intake: cup of coffee on the way to work B: mayra cracker, Trix cereal Bar and applesauce/fruit cocktail (school breakfast) L: (school lunch) cheeseburger and baked beans and canned peaches D: cabbage roll casserole with ground turkey OR roasted chicken and veggies S: Typical Beverages: [x] coffee black [x] water - (total: 4-8 ounces/day (with pills) [x] plain [x] [place] (natural or artificial flavoring or plain only) - 2-3 cans/day Other: one bottle of wine/wk Food Tracking: [] Current food Tracking [x] Discussed potential benefit starting food tracking - see goals; return to My Plate tracking Patient Goals from Team: Goals ??? Actrivity Open your yoga rusty and see if you might be interested in trying this gentle form of movement to activate your muscles. ??? movement Try cardio chair exercises. Health Rf Test Technician will send links to videos. ??? Nutrition [...] ~ 1,475 for weight loss - Use MyInterneer food tracker - PRE-Track as muchas possible [...] the pause (STOP, and urge surfing. Health Rf Test Technician will mail hand-outs. Activity: [x] reviewed current goals; stationary bike few minutes in the morning and night [] updated goals Nutrition Goals updated today: 1. Look for 5 Eating Behaviors handout in the mail 2. Practice eating protein first at all meals Monitor/Evaluate: Will follow up as scheduled Aim for 5-10% weight loss from ABW [...] EST Office Visit Dermatology at [place] [address] [place] [address] Felicitas Llanes MD [facility] [place] [address] 04/26/2024 4:00 PM EST Office Visit [place] [address] Denia Xiao APRN [facility] [place] [address] documented as of this encounter Goals Goal Patient Goal Type Associated Problems Recent Progress Patient-Stated? Author movement Exercise No Arsh So Note: Try cardio chair exercises. Health Rf Test Technician will send links to videos. Self [...] the pause (STOP, and urge surfing. Health Rf Test Technician will mail hand-outs. documented as of this encounter Visit Diagnoses Diagnosis Dietary counseling and surveillance Dietary surveillance and counseling documented in this encounter Care Teams Telecom Network Manager Relationship Specialty Start Date End Date Carolyn Christianson APRN PCP - General Family Medicine 12/21/20 10/02/22 documented as of this encounter
--- OUTSIDE RECORDS SUMMARY | 2024-03-20 11:53 | XMS_ITS | Encounter Summary ---
Author Organization [facility] Address [facility] [place] [address] Care Team Providers Care Fiscal Assistant Name Role Phone Carolyn Christianson APRN Primary Care Provider [phone] [phone] Reason for Visit * Reason Comments Follow-up Weight management Encounter Details Date Type Department Care Team (Late st Contact Info) Description 02/28/2022 3:45 PM EST Office Visit Weight and Wellness at [address] [phone] Denia Khalil MD [facility] [address] [address] Class 3 severe obesity with body mass [...] Taken Comments Blood Pressure - - Pulse 67 02/28/2022 3:33 PM EST Temperature - - Respiratory Rate - - Oxygen Saturation 98% 02/28/2022 3:33 PM EST Inhaled Oxygen Concentration - - Weight 127.4 kg (280 lb 14.4 oz) 02/28/2022 3:33 PM EST Height 165.1 cm (5' 5) 02/28/2022 3:33 PM EST Body Mass Index 46.74 02/28/2022 3:33 PM EST documented in this encounter Progress Notes * Denia Khalil MD - 02/28/2022 3:45 PM EST Patient provided verbal consent prior to initiation of this telemedicine encounter and expressed understanding that the telemedicine visit will be billed similar to a clinic visit. In addition, privacy and MDM are consistent with an in-person visit. Pt was seen via [x] Video [] phone [facility] [place] Patient Name: Liss Mosley Date of : 1965 Age: 56 y.o. Carolyn Christianson APRN Thank you for referring Liss Mosley to the [facility]. I saw her for a follow-up visit today, 02/28/22. Please see changes to care as documented in the assessment and plan. CHIEF COMPLAINT: F/u for treatment of WHO Class 3 / EOSS Stage 2 Obesity defined by initial BMI and comorbidities Depression, OA, TESSA and Thyroid dz (Ning's thyroiditis), elevated BP without dx.. This is Visit #5 [facility] visit for this 56 y.o. [...] goal Today's weight: 280 Change since prior: -1# [facility] Team: Denia Khalil MD, Arlin Mac RD and Arsh So, Health Ornament Maker Hand HPI TODAY PATIENT REPORTS: Went to [facility] info session. 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 PHYSICAL EXAM: Gen: Alert and appropriate, [...] elevated CAMMIE IR AOM: Continue metformin 2000mg, willmaximize Trulicity Again suggested: Patient talk to work photoengraving supervisor to see if she can get [...] type, unspecified whether serious comorbidity present - dulaglutide (Trulicity) 3 mg/0.5 mL Pen Injector; Inject 0.5 mLs subcutaneously once a week for 4days. - dulaglutide (Trulicity) 4.5 mg/0.5 mL Pen Injector; Inject 0.5 mLs subcutaneously once a week. Insulin resistance - dulaglutide (Trulicity) 3 mg/0.5 mL Pen Injector; Inject 0.5 mLs subcutaneously once a week for 4days. - dulaglutide (Trulicity) 4.5 mg/0.5 mL Pen Injector; Inject 0.5 mLs subcutaneously once a week. Return for follow-up as scheduled, //Prebari Psych eval. documented in this encounter Plan of Treatment Upcoming Encounters Date Type Department Care Team (Late st Contact Info) Description 04/13/2024 3:20 PM EST Office Visit Dermatology at [address] [place] [address] Felicitas Llanes MD [facility] DR MODE[place] [address] 04/26/2024 4:00 PM EST Office Visit Nephrology [place] [address] Denia iXao APRN [facility] [place] [address] documented as of this encounter Goals Goal Patient Goal Type Associated Problems Recent Progress Patient-Stated? Author movement Exercise No Arsh So Note: Try cardio chair exercises. Health Ornament Maker Hand will send links to videos. Self monitoring [...] muscles. Nutrition goals updated 06.10.22 Lifestyle No Fredette, Arlin I, RD Note: [...] the pause (STOP, and urge surfing. Health Ornament Maker Hand will mail hand-outs. documented as of this encounter Visit Diagnoses Diagnosis Class 3 severe obesity with body mass index (BMI) of 45.0 to 49.9 in adult, unspecified obesity type, unspecified whether serious comorbidity present- Primary Insulin resistance Dysmetabolic Syndrome X documented in this encounter Care Teams Fiscal Assistant Relationship Specialty Start Date End Date Carolyn Christianson APRN PCP - General Family Medicine 12/21/20 10/02/22 documented as of this encounter
--- OUTSIDE RECORDS SUMMARY | 2024-03-20 11:53 | XMS_ITS | Encounter Summary ---
[place] [address] Care Team Providers Care Hr Director Name Role Phone Carolyn Christianson APRN Primary Care Provider [phone] [phone] Encounter Details Date Type Department Care Team (Late st Contact Info) Description 04/23/2022 [place] [phone] Alayna Sanchez Social History Tobacco Use Types Packs/Day Years [...] encounter Miscellaneous Notes * Telephone Encounter - Alayna Sanchez - 04/23/2022 12:58 PM EST Call being returned to: Steph Comment: Advised patient of my- message and she replied with the following information. Martita did not take her Trulicity this past Friday but she normally does take it on Friday evening. And she did not have any side effects with the 3 mg. Caller: Liss Mosley Best time to call back: any Ok to leave a message: y Ok to send [facility] message: y MA/Nurse/sales secretary contacted via: Message: y Call: n Pager: n documented in this encounter Plan of Treatment Upcoming Encounters Date Type Department Care Team (Late st Contact Info) Description 04/13/2024 3:20 PM EST Office Visit Dermatology at [facility] [address] [place] [phone] Felicitas Llanes MD [facility] DR MODESTA [place] [address] 04/26/2024 4:00 PM EST Office Visit [place] [address] Denia Xiao APRN [facility] [place] [address] documented as of this encounter Goals Goal Patient Goal Type Associated Problems Recent Progress Patient-Stated? Author movement Exercise No Arsh So Note: Try cardio chair exercises. Health Activity Therapy Teacher will send links to videos. Self [...] the pause (STOP, and urge surfing. Health Activity Therapy Teacher will mail hand-outs. documented as of this encounter Visit Diagnoses Not on filedocumented in this encounter Care Teams Hr Director Relationship Specialty Start Date End Date Carolyn Christianson APRN PCP - General Family Medicine 12/21/20 10/02/22 documented as of this encounter
--- OUTSIDE RECORDS SUMMARY | 2024-03-20 11:53 | XMS_ITS | Encounter Summary ---
Author Organization [facility] [place] [address] Care Team Providers Care Vice Principal Name Role Phone Carolyn Christianson APRN Primary Care Provider [phone] Reason for Visit * Reason Onset Date Comments Appointment 08/07/2021 Encounter Details Date Type Department Care Team (Late st Contact Info) Description 08/07/2021 Telephone Weight and Wellness at [address] [address] Yuliana Tatum V Appointment Social [...] Telephone Encounter - Yuliana Tatum V - 08/07/2021 3:31 PM EDT Return in about 3 months (around 10/19/2021) for Health Chairman And Chief Executive Officer, 3 mo, Zoom. documented in this encounter Plan of Treatment Upcoming Encounters Date Type Department Care Team (Late Contact Info) Description 04/13/2024 3:20 PM EST Office Visit Dermatology at [facility] [address] [place] [address] Felicitas Llanes MD [facility] DR MODESTA [place] [address] 04/26/2024 4:00 PM EST Office Visit [place] [phone] Denia Xiao APRN [facility] [place] [address] documented as of this encounter Goals Goal Patient Goal Type Associated Problems Recent Progress Patient-Stated? Author movement Exercise No Arsh So Note: Try cardio chair exercises. Health Chairman And Chief Executive Officer will send links to videos. Self [...] on filedocumented in this encounter Care Teams Vice Principal Relationship Specialty Start Date End Date Carolyn Christianson APRN PCP - General Family Medicine 12/21/20 10/02/22 documented as of this encounter
--- OUTSIDE RECORDS SUMMARY | 2024-03-20 11:53 | XMS_ITS | Encounter Summary ---
[place] [address] Care Team Providers Care Funeral Sales Manager Name Role Phone Carolyn Christianson APRN Primary Care Provider [phone] [phone] Encounter Details Date Type Department Care Team (Latest Contact Info) Description 05/22/2022 Multidisciplinary Ca re Committee [place] [phone] Barbara Mai RD Social History Tobacco Use Types Packs/Day Years [...] as of this encounter Progress Notes * Barbara Mai RD - 05/22/2022 6:56 AM EST BARIATRIC SURGERY PROGRAM CASE REVIEW Liss Mosley is a 56 y.o. year-old female. Her primary care physician is Carolyn Christianson APRN. Referred by: Denia Khalil MD Bariatric Surgery Program introductory meeting attendance: Yes Date: 02/18/22 Evaluation by a member of the [employer] Bariatric Surgery Program previously: No Case presentation by: Annabella Borrero MD, Staff present at today's meeting: Shruthi Gee MD, Medical Coding Auditor, Barbara Corrales MD, Juliane Wang APRN, Mellisa Rowland APRN, Rhiannon Florian, MS, RD, Apolonia Lowry, PhD, Flower Brown, MARILYNN, RN, Annabella Borrero MD, Barbara Mai RD, Sabrina Wright MD, Liza Yin MD, CONG Butler, Meeta Underwood, Mayuri Sheth, Tamara Knight. Reason for presentation: Pt has [employer] insurance that requires 5% weight loss, pt has been working with [facility] since early 2021. Since engaging with bariatric program in 02/19 has not met wgt loss requirement, but pt had lost weight prior to engaging with bariatric program. Discussed pt start weight and POC. Patient Active Problem List Diagnosis Code ??? Ning's disease E06.3 ??? TESSA (obstructive sleep apnea) G47.33 ??? OA (osteoarthritis) M19.90 ??? Class 3 severe obesity with body mass index (BMI) of 40.0 to 44.9 in adult E66.01, Z68.41 ??? Insulin resistance E88.81 No past surgical history on file. Plan of care: Pt to work with [facility] to address work environment and optimize medical therapy. WWC team to update BSP team on pt progress. documented in this encounter Plan of Treatment Upcoming Encounters Date Type Department Care Team (Late st Contact Info) Description 04/13/2024 3:20 PM EST Office Visit Dermatology at [place] [address] [place] [address] Felicitas Llanes MD [facility] DR MODESTA THORNT[place] [address] 04/26/2024 4:00 PM EST Office Visit [place] [address] Denia Xiao APRN [facility] [place] [address] documented as of this encounter Goals Goal Patient Goal Type Associated Problems Recent Progress Patient-Stated? Author movement Exercise No Arsh So Note: Try cardio chair exercises. Health Lay Brother will send links to videos. Self monitoring [...] package), something quick like baby carrots or ramesy pepper- things you might be prepping for [...] the pause (STOP, and urge surfing. Health Lay Brother will mail hand-outs. documented as of this encounter Visit Diagnoses Not on filedocumented in this encounter Care Teams Funeral Sales Manager Relationship Specialty Start Date End Date Carolyn Christianson APRN PCP - General Family Medicine 12/21/20 10/02/22 documented as of this encounter
--- OUTSIDE RECORDS SUMMARY | 2024-03-20 11:53 | XMS_ITS | Encounter Summary ---
Author Organization [facility] [place] [address] Care Team Providers Care Fiberglass Machine Operator Name Role Phone Carolyn Christianson APRN Primary Care Provider [phone] [phone] Encounter Details Date Type Department Care Team (Late st Contact Info) Description 07/24/2021 Telephone Weight and Wellness at [address] [phone] Collette Adair, MIRYAM Social History Tobacco Use Types Packs/Day [...] encounter Miscellaneous Notes * Telephone Encounter - Collette Adair CMA - 07/24/2021 12:38 PM EDT [facility] Network Security Consultant Pre-telemedicine Visit Phone Note Liss Mosley 1965 [] Patient was not reached Patient was reached and the following information was reviewed/obtained per protocol: [x] Confirmed patient name and date of [x] Confirmed ZOOM downloaded and functioning [] ZOOM appointment link sent if no MyDH [x] Phone number to be reached is: [phone] REVIEW: [x] Review of patient medications completed Have you started on any NEW medications? [] No [x] Yes:Lisinopril [x] Confirmed preferred pharmacy: [facility] Reminders Your provider might ask you what you ate the day prior to the visit Please weigh yourself before the appointment Pedi: Both parent and child need to be present for the visit documented in this encounter Plan of Treatment Upcoming Encounters Date Type Department Care Team (Late st Contact Info) Description 04/13/2024 3:20 PM EST Office Visit Dermatology at [place] [address] [place] [address] Felicitas Llanes MD [facility] [address] [place] [address] 04/26/2024 4:00 PM EST Office Visit [place] [address] Denia Xiao APRN [facility] [place] [place] [address] documented as of this encounter Goals Goal Patient Goal Type Associated Problems Recent Progress Patient-Stated? Author movement Exercise No Arsh So Note: Try cardio chair exercises. Health Elementary [employer] Principal will send links to videos. Self monitoring [...] on filedocumented in this encounter Care Teams Fiberglass Machine Operator Relationship Specialty Start Date End Date Carolyn Christianson APRN PCP - General Family Medicine 12/21/20 10/02/22 documented as of this encounter
--- OUTSIDE RECORDS SUMMARY | 2024-03-20 11:54 | XMS_ITS | Encounter Summary ---
Author Organization [facility] [place] [address] Care Team Providers Care Customer Sales Service Manager Name Role Phone Carolyn Christianson APRN Primary Care Provider [phone] Reason for Referral * Consultation (Routine) - Closed Specialty Diagnoses / Procedures Referred By Yury thornton Referred To Contact Dermatology Diagnoses Melanocytic nevus, unspecified location Carolyn Christianson APRN [address] [place] [address] [facility] Dermatology [address] [place] [address] Referral ID Status Reason Start Date Expiration Date V isits Requested Visits Authorized [id number] Closed Consult, Test & Treat 06/04/2021 06/04/2022 6 6 Encounter Details Date Type Department Care Team (Late st Contact Info) Description 06/04/2021 [place] [address] Carolyn Christianson APRN [address] [place] [address] Melanocytic nevus, unspecified location Social History Tobacco Use Types Packs/Day Years [...] [facility] [address] [place] [address] Felicitas Llanes MD [facility] DR MODESTA [place] [address] 04/26/2024 4:00 PM EST Office Visit Nephrology [place] [address] Denia Xiao APRN [facility] [place] [address] Scheduled Referrals Name Type Priority Associated Diagnoses Orde r Schedule Referral to Dermatology Outpatient Referral Routine Melanocytic nevus, unspecified location Ordered: 06/04/2021 documented as of this encounter Goals Goal [...] as of this encounter Visit Diagnoses Diagnosis Melanocytic nevus, unspecified location documented in this encounter Care Teams Customer Sales Service Manager Relationship Specialty Start Date End Date Carolyn Christianson APRN PCP - General Family Medicine 12/21/20 10/02/22 documented as of this encounter
--- OUTSIDE RECORDS SUMMARY | 2024-03-20 11:54 | XMS_ITS | Encounter Summary ---
Author Organization [facility] [place] [address] Care Team Providers Care Precision Machinist Name Role Phone Sandor Castaneda MD Primary Care Provider [phone] Reason for Visit * Reason Comments Follow-up Allergy Testing Encounter Details Date Type Department Care Team (Late st Contact Info) Description 11/12/2019 8:30 AM EDT [place] [id number] Kinga Rios MD Allergic rhinoconjunctivitis; Eczema, unspecified type; Chronic rhinitis; Environmental allergies; Elevated blood pressure reading without diagnosis of hypertension Social History Tobacco Use Types Packs/Day Years Used Date Smoking Tobacco: Former Smokeless Tobacco: Never Comments:quit 1990 Alcohol Use Standard Drinks/Week Comments Yes 2 (1 standard drink = 0.6 oz pur e alcohol) Sex and Gender Information Value Date Recorded Sex Assigned at Not on file Gender Identity Not on file Sexual Orientation Not on file documented as of this encounter Last Filed Vital Signs Vital Sign Reading Time Taken Comments Blood Pressure 152/93 11/12/2019 8:11 AM EDT Pulse 66 11/12/2019 8:11 AM EDT Temperature - - Respiratory Rate - - Oxygen Saturation 99% 11/12/2019 8:11 AM EDT Inhaled Oxygen Concentration - - Weight 116.1 kg (255 lb 15.3 oz) 11/12/2019 8:11 AM EDT Height - - Body Mass Index 42.59 09/22/2019 8:36 AM EDT documented in this encounter Patient Instructions * Patient Instructions* Kinga Rios MD - 11/12/2019 8:30 AM EDT 11/12/2019 Allergy skin prick tests Interpretation: Appropriate histamine, saline and glycerine controls. Positive tests to: Tree pollen: maple Negative tests to: Dust mites: DF dust mite, DP dust mite Animals and cockroach: cat, dog ( Manrique), AP dog ( Sarah Armani), cockroach, Grass pollens: Richard, [place] blue, orchard, Talat grass, Bermuda grass; Tree pollens: lm, dagoberto, birch, black walnut, eastern red cedar, elm, hickory, oak, pine, poplar, eastern sycamore; Pierz pollens: cocklebur, mugwort, pigweed, giant ragweed, sheep sorrel, plantain; Mold spores: Aspergillus mix, Alternaria, Penicillium, Cladosporium, Helminthosporium, Curvularia, Epicoccum, Fusarium, Mucor, Stemphyllium Solani, A. Fumigatus - Continue levocetirizine 5mg daily and montelukast 10mg nightly. If you have any mood or behavioral changes, please stop the montelukast. - Try to increase compliance with nasal saline rinses. Perform the rinses daily. Use distilled water with isotonic salt packets. - Try over the counter Nasacort 2 sprays per nostril daily. Nasal corticosteroid Administration Technique: - Opposite hand to opposite nostril - Always want the spray tip to point out. - Continue skin regimen per the manager china. - Use hypoallergenic products - Elevated blood pressure- Recommend continued monitoring and follow up with primary provider for further evaluation and management of elevated blood pressure ALLERGY SEASONS & AVOIDANCE: Pollens: Trees: Early Spring; 1. Nightly hair washing during pollen seasons 2. Keep windows closed, consider window a/c unit with filter 3. Do not place fans in windows 4. Do not dry clothes outside. documented in this encounter Progress Notes * Kinga Rios MD - 11/12/2019 8:30 AM EDT Chief Complaint Patient presents with ??? Follow-up ??? Allergy Testing HPI. Liss Mosley Is here today for a follow up visit. Last encounter in this section was on 09/22/2019 There are no active problems to display for this patient. The patient has been holding her Xyzal for allergy testing. She continues to have bilateral nasal congestion on or off the Xyzal. She is also on Singulair. No mood or behavioral changes. She does not like using nasal sprays because they irritate the back of her throat. She performs nasal rinses 2-3 times per week. She does not notice a difference. Uses distilled water. She has not had an eczema flare since her last visit. Her eczema tend to flare in the winter. Patient showed me a picture of her b/l upper and lower eyelid swelling with erythema that she took during the winter. She applies Protopic with minimal improvement. She follows with the dermatology service. She also uses triamcinolone cream on eczematous patches not on her face. Elevated BP: No h/o HTN. No chest pain, SOB, vision changes or headache. Review of Systems: All other systems reviewed and negative, except as noted below. Review of Systems All other systems reviewed and are negative. Allergies, medications, past medical/ surgical history were reviewed and updated in e[facility]. Allergies: Adhesive tape, Citalopram, and Mold Medications: Outpatient Medications Marked as Taking for the 11/12/19 encounter (Office Visit) with Darion Rios MD Medication Sig Dispense Refill ??? [place]-3 Fatty Acids 100 mg Tablet, Chewable Daily ??? montelukast (Singulair) 10 mg Tablet Take 10 mg by mouth nightly. ??? levothyroxine (Synthroid) 150 mcg Tablet Take 150 mcg by mouth daily. ??? triamcinolone (KENALOG) 0.1 % Cream Apply to areas of rash twice daily for 14 days, then take one week off and repeat. Don't apply to groin or face 45 g 1 ??? sertraline (ZOLOFT) 50 mg Tablet 50 mg daily. ??? naproxen sodium (ANAPROX) 220 mg Tablet Take 220 mg by mouth 2 times daily (with meals). ??? sulfacetamide (KLARON) 10 % Suspension Apply topically to face 1-2 times daily for rosacea 118 mL 3 Not taking hydroxychloroquine which was prescribed for alopecia. Past Medical and Social History: Past Medical History: Diagnosis Date ??? Allergic rhinitis No past surgical history on file. Family history: Family History Problem Relation Age of Onset ??? Asthma Mother ??? Allergic Rhinitis Mother ??? Allergic Rhinitis Father ??? Asthma Sister ??? Allergic Rhinitis Sister ??? Allergic Rhinitis Brother Social history: Social History Socioeconomic History ??? Marital status: Spouse name: None ??? Number of children: None ??? Years of education: None ??? Highest education level: None Occupational History ??? None Social Needs ??? Financial resource strain: None ??? Food insecurity Worry: None Inability: None ??? Transportation needs Medical: None Non-medical: None Tobacco Use ??? Smoking status: Former Smoker ??? Smokeless tobacco: Never Used ??? Tobacco comment: quit 1991 Substance and Sexual Activity ??? Alcohol use: Yes Alcohol/week: 2.0 - 3.0 standard drinks Types: 2 - 3 Glasses of wine per week ??? Drug use: Not Currently ??? Sexual activity: None Lifestyle ??? Physical activity Days per week: None Minutes per session: None ??? Stress: None Relationships ??? Social connections Talks on phone: None Gets together: None Attends pentecostalism service: None Active member of club or organization: None Attends meetings of clubs or organizations: None Relationship status: None ??? Intimate partner violence Fear of current or ex partner: None Emotionally abused: None Physically abused: None Forced sexual activity: None Other Topics Concern ??? None Social History Narrative ??? None Physical Exam: Vital signs reviewed. No data found. Normal Except General: - No apparent distress Eyes: - Conjunctivae without injection; - No eyelid swelling ENT: - No erythema of the tympanic membranes - Normal external ear canals - Nl nasal mucosa, septum, and turbinates; - Oropharynx well hydrated without lesions or exudates; - Face & sinuses non-tender to palpation/percussion Neck: - Symmetrical, no masses, trachea midline; Resp: - Unlabored breathing with symmetrical and equal bilateral expansion; - CTA w/o wheezes, rales, or rhonchi; CV: - Regular rate and rhythm - No pedal swelling Lymph: - No significant cervical, supraclavicular or infraclavicular lymphadenopathy Musculoskeletal: - Nl gait and station Extremities: - No clubbing, cyanosis, or edema Skin: - No rashes Neuro/Psych: - Nl and age appropriate mood and affect - Judgement and insight intact Tests or Procedures: 11/12/2019 Allergy skin prick tests # tests: 43 Interpretation: Appropriate histamine, saline and glycerine controls. Positive tests to: Tree pollen: maple Negative tests to: Dust mites: DF dust mite, DP dust mite Animals and cockroach: cat, dog ( Manrique), AP dog ( Sarah Armani), cockroach, Grass pollens: Richard, [place] blue, orchard, Talat grass, Bermuda grass; Tree pollens: lm, dagoberto, birch, black walnut, eastern red cedar, elm, hickory, oak, pine, poplar, eastern sycamore; Pierz pollens: cocklebur, mugwort, pigweed, giant ragweed, sheep sorrel, plantain; Mold spores: Aspergillus mix, Alternaria, Penicillium, Cladosporium, Helminthosporium, Curvularia, Epicoccum, Fusarium, Mucor, Stemphyllium Solani, A. fumigatus Impression Report Plan: # Allergy testing - Allergy tests reviewed with the patient. Positive to maple tree. # Allergic rhinoconjunctivitis # Chronic rhinitis - May be exacerbated by allergen exposure. However, she has symptoms all year round that can not beexplained by seasonal tree pollen allergy. She likely has non- allergic component to her rhinitis. - Continue levocetiririzine 5mg daily and montelukast 10mg daily. Reviewed s/e profile. - Increase compliance with nasal saline rinses.Use distilled water and isotonic salt packet. Risk of infection discussed. - Start trial of Nasacort 2 sprays per nostril once daily. The appropriate administration techniqueto minimize the risk of septal perforation and nose bleeds was reviewed. # Eczema - Stable - On Protopic for facial eczema and topical steroids for body eczema. Continue skin regimen as prescribed by the manager china - use hypoallergenic products # Environmental allergies - Reviewed environmental control and avoidance measures # Elevated blood pressure - No history of hypertension - Recommend continued monitoring and follow up with primary provider for further evaluation and management of elevated blood pressure No orders of the defined types were placed in this encounter. Return in about 1 year (around 11/11/2020), or if symptoms worsen or fail to improve, for FUWO ( follow- up without testing) rhintiis and eczema. eDH record was reviewed. Written instructions were reviewed and provided to the patient. No learning barriers were identified. The risks, benefits, alternatives and indications for the useof mediations prescribed or recommended during today's visit were reviewed with the patient. The patient understood and agreed with what was discussed. All questions were answered. documented in this encounter Plan of Treatment Upcoming Encounters Date Type Department Care Team (Late st Contact Info) Description 04/13/2024 3:20 PM EST Office Visit Dermatology at [address] [phone] Felicitas Llanes MD [facility] [address] [address] 04/26/2024 4:00 PM EST Office Visit [place] [address] Denia Xiao APRN [facility] [place] [address] documented as of this encounter Procedures Procedure Name Priority Date/Time Associated Diagnosis Comments ALLERGY SCAN 11/12/2019 12:00 AM EDT documented in this encounter Results * SCAN DOC: ALLERGY (11/12/2019 12:00 AM EDT) Narrative 11/12/2019 12:00 AM EDT Ordered by an unspecified provider. Scanning Provider MEDIA MGR SCAN EXT O RDR/RSLT documented in this encounter Visit Diagnoses Diagnosis Allergic rhinoconjunctivitis Acute atopic conjunctivitis Eczema, unspecified type Chronic rhinitis Environmental allergies Allergic rhinitis, cause unspecified Elevated blood pressure reading without diagnosis of hypertension documented in this encounter Care Teams Precision Machinist Relationship Specialty Start Date End Date Sandor Castaneda MD [address] [place] [address] PCP - General Family Medicine 06/02/17 12/20/20 documented as of this encounter
--- OUTSIDE RECORDS SUMMARY | 2024-03-20 11:54 | XMS_ITS | Encounter Summary ---
Author Organization [facility] [place] [address] Care Team Providers Care Panel Coverer Name Role Phone Carolyn Christianson APRN Primary Care Provider [phone] Encounter Details Date Type Department Care Team (Latest Contact Info) Description 05/22/2021 2:00 PM EST TH Visit (TeleHealth) Weight and Wellness at [address] [phone] Arsh So Obesity, unspecified classification, unspecified obesity [...] Instructions * Patient Instructions* Arsh So - 05/24/2021 10:39 AM EST It was good to meet you Liss. You're just [facility]. You're doing great keeping a food log. This can be a helpful tool with making goals and planning strategies to keep you moving toward your goals. You're wanting to get more exercise. I'll send you the hand-out we discussed with links to gentle yoga, qigong and t'ai chi videos to try. I look forward to talking with you more. Be well, Arsh So [facility] [employer] Merchandising documented in this encounter Progress Notes * Arsh So - 05/22/2021 2:00 PM EST Liss Mosley is here today at the request of Dr. Khalil for lifestyle coaching for weight control and overall health. FIRST VISIT 1. Clarify BIG WHY: want to feel better, have more energy, keep up with kids at work 2. Assess Strengths: knowledge 3. Review Healthy habits guidelines for exercise, sleep, and stress- see below 4. Teach SMART goals and practice setting one(connect to BIG WHY, pillars). 5. Remind Patient to review info in Welcome Packet: 6. Review Pathways (note any questions): Review specific goals if any from provider Goals ??? Actrivity Open your yoga rusty and see if you might be interested in trying this gentle form of movement to activate your muscles. ??? Self monitoring Keep food log until you are seen by the dieititian. Record everything you eat or drink, include time eaten and any emotional changes that are significant. Exercise Have knee pain, exercise is hard, interested in gentle yoga, qigong/t'ai chi Sleep Have cpap Self-monitoring What are you doing now? Have been logging for 2-3weeks If no personal accountability process, what can you add? []Food log: [] daily [] intermittent []Weigh-ins: [] daily [] weekly [x]Exercise log [x]Gratitude journal []Other: Food Behaviors (optional): Current concerns/challengese (eating outside of prescribed hours, struggling with snacking, portioncontrol, craving, etc): NEW SMART goal if applicable: see Patient Goals Future follow-up with health assistant coach will address identified areas of concern: [x] Exercise []Sleep []Stress [x]Accountability []Food Behaviors [x]Self-compassion Below are guidelines for [...] increasing mindfulness throughout the day. Your health assistant coach is well-equipped to guide you to find something to look forward to everyday. Eating behaviors: many people benefit from restricting the hours in which they eat. You can choose an eating window of 8-12 hours to start. Make a pact with yourself that you will not take in anything with caloric content outside this window. Your executive administrative asst may make further recommendations documented in this encounter Plan of Treatment Upcoming Encounters Date Type Department Care Team (Late st Contact Info) Description 04/13/2024 3:20 PM EST Office Visit Dermatology at [facility] [address] [place] [address] Felicitas Llanes MD [facility] [address] [place] [address] 04/26/2024 4:00 PM EST Office Visit [place] [address] Denia Xiao APRN [facility] [place] [address] documented as of this encounter Goals Goal [...] present documented in this encounter Care Teams Panel Coverer Relationship Specialty Start Date End Date Carolyn Christianson APRN PCP - General Family Medicine 12/21/20 10/02/22 documented as of this encounter
--- OUTSIDE RECORDS SUMMARY | 2024-03-20 11:54 | XMS_ITS | Encounter Summary ---
Author Organization [facility] [place] [address] Care Team Providers Care Commercial Estimator Name Role Phone Carolyn Christianson APRN Primary Care Provider [phone] Encounter Details Date Type Department Care Team (Late st Contact Info) Description 04/13/2021 Telephone Weight and Wellness at [facility] [address] [place] [phone] Collette Adair, [facility] Social History Tobacco Use Types Packs/Day [...] 3:20 PM EST Office Visit Dermatology at [facility] [address] [place] [phone] Felicitas Llanes MD [facility] [address] [place] [address] 04/26/2024 4:00 PM EST Office Visit [place] [address] Denia Xiao APRN [facility] [place] [address] documented as of this encounter Goals Goal Patient Goal Type Associated Problems Recent Progress Patient-Stated? Author Self monitoring Lifestyle On track( 022 10:00 AM EST) No Denia Khalil MD Note: Keep food log until you are seen by the dieititian. Record everything you eat or drink, include time eaten and any emotional changes that are significant. Actrivity Lifestyle No Denia Khalil MD Note: Open your yoga rusty and see if you might be interested in trying this gentle form of movement to activate your muscles. documented as of this encounter Visit Diagnoses Not on filedocumented in this encounter Care Teams Commercial Estimator Relationship Specialty Start Date End Date Carolyn Christianson APRN PCP - General Family Medicine 12/21/20 10/02/22 documented as of this encounter
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
--- OUTSIDE RECORDS SUMMARY | 2024-03-20 11:54 | XMS_ITS | Encounter Summary ---
Author Organization [facility] Address [facility] [place] [address] Care Team Providers Care Dirt Contractor Name Role Phone Sandor Castaneda MD Primary Care Provider [phone] Reason for Visit * Reason Comments Rash * Consultation (Routine) - Specialty Diagnoses / Procedures Referred By Yury thornton Referred To Contact Dermatology Diagnoses Rash Facial rash Sandor Castaneda MD [address] [place] [address] [facility] Dermatology [address] [place] [address] Referral ID Status Reason Start Date Expiration Date V isits Requested Visits Authorized [id number] Consult, Test & Treat [facility] Center PCP Updated and/or Approved 06/04/2017 06/04/2018 6 6 Encounter Details Date Type Department Care Team (Late st Contact Info) Description 06/12/2017 4:30 PM EDT Office Visit Dermatology at [facility] [address] [place] [address] Isai Parson MD [facility] DR [address] [address] Rosacea Social History Tobacco Use Types Packs/Day Years Used Date Smoking Tobacco: Former Smokeless Tobacco: Never Comments:quit 1990 Sex and Gender Information Value Date Recorded Sex Assigned at Not on file Gender Identity Not on file Sexual Orientation Not on file documented as of this encounter Progress Notes * Isai Parson - 06/12/2017 4:30 PM EDT Images from the original note were not included. DERMATOLOGY - NEW PATIENT NOTE Date of service: 06/12/2017 Liss Mosley : 1965, 51 y.o. Chief Complaint: Chief Complaint Patient presents with ??? Rash HPI: Liss Mosley is a 51 y.o. female referred by Sandor Castaneda with the following concerns: Itchy rash on right side of her face present for 9 months. Her PCP told her it was rosacea and she was given metro gel to use daily. She does develop pimple- like outbreaks on the face at times. She is not aware of any clear triggers for the rash. Relevant Skin History: - Okay to leave detailed message with results? 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 ibuprofen (ADVIL;MOTRIN) 200 mg tablet ??? [...] and in no noticeable distress. - Skin: Skin examination of the face Diagnosis/Skin findings/Assessment/Plan: 1. Rosacea - Glabella and cheeks: few scattered pink papules - Given lack of response to metronidazole gel, will switch to Klaron. Discussed other options, including doxycycline; patient declined. - Rx: Klaron - apply topically to face 1-2 times daily - If condition does not improve in 6 weeks, consider metronidazole in the morning and Klaron in theevening. - If no improvement, best next step would be doxycycline. RTC: PRN; patient to call if condition does not improve. The following photos were obtained with patient consent: Note initiated by Denia Martines LPN. I performed the above scribed service and agree with the accuracy of the documentation in this encounter. Reviewed and signed by ISAI PARSON MD Resident in Dermatology [facility] Patient seen in conjunction with staff mat repairer: Elizabeth Sierra MD Section of Dermatology [facility] * Chante Sierra MD - 06/12/2017 4:30 PM EDT I directly supervised Dr. Isai Parson during this office visit. Dr. Parson presented the history and physical exam to me. I then saw and examined this patient with Dr. Parson. We reviewed the history and pertinent details and I confirmed the physical findings. I agree with the details of the history and physical exam as documented in Dr. Parson's note. CHANTE SIERRA MD Staff Physician documented in this encounter Plan of Treatment Upcoming Encounters Date Type Department Care Team (Late st Contact Info) Description 04/13/2024 3:20 PM EST Office Visit Dermatology at [place] [address] [place] [address] Felicitas Llanes MD [facility] DR [address] [place] [address] 04/26/2024 4:00 PM EST Office Visit Nephrology [place] [address] Denia Xiao, ALBA [facility] [place] [address] documented as of this encounter Visit Diagnoses Diagnosis Rosacea documented in this encounter Care Teams Dirt Contractor Relationship Specialty Start Date End Date Sandor Castaneda MD [address] [place] [address] PCP - General Family Medicine 06/02/17 12/20/20 documented as of this encounter
--- OUTSIDE RECORDS SUMMARY | 2024-03-20 11:54 | XMS_ITS | Encounter Summary ---
Author Organization [facility] [place] [address] Care Team Providers Care Diaphragm Builder Name Role Phone Meghan Carolynleon Baugh APRN Primary Care Provider [phone] Encounter Details Date Type Department Care Team (Late st Contact Info) Description 05/04/2021 External Results Weight and Wellness at [address] [phone] Brittni Mccoy, RN Social History Tobacco Use [...] 3:20 PM EST Office Visit Dermatology at [address] [phone] Felicitas Llanes MD [facility] DR [address] [place] [address] 04/26/2024 4:00 PM EST Office Visit Nephrology [place] [address] Denia Xiao APRN [facility] [place] [address] documented as of this encounter Goals Goal Patient Goal Type Associated Problems Recent Progress Patient-Stated? Author Self monitoring Lifestyle On track( 022 10:00 AM EST) Denia Galindo MD Note: Keep food log until you are seen by the dieititian. Record everything you eat or drink, include time eaten and any emotional changes that are significant. [employer] Lifestyle Denia Galindo MD Note: Open your yoga rusty and see if you might be interested in trying this gentle form of movement to activate your muscles. documented as of this encounter Procedures Procedure Name Priority Date/Time Associated Diagnosis Comments [facility] EXTERNAL RESULT PANEL Routine 04/20/2021 CBC (WITH DIFF) Routine 04/20/2021 documented in this encounter Results * (ABNORMAL) CBC (with Diff) (04/20/2021) White Blood Cell 6.64(Exte rnal Lab) Red Blood Cell 4.92(Exte rnal Lab) Hemoglobin 13.8(Exte rnal Lab) Hematocrit 44.7(Exte rnal Lab) Mean Cell Volume 90.9(Exte rnal Lab) Mean Cell Hemoglobin 28.0(Exte rnal Lab) Mean Cell Hemoglobin Concentration 30.9(Exte rnal Lab) RDW coefficient of variation 14.2(Exte rnal Lab) Platelet 242(Exter nal Lab) Mean Platelet Volume 9.2(Exter nal Lab) Neutrophil % 59.2(Exte rnal Lab) Lymph % 29.1(Exte rnal Lab) Monocyte % 7.5(Exter nal Lab) Eosinophil Manual 3.2(Exter nal Lab) Basophil % 0.5(Exter nal Lab) Immature Gran % 0.5(Exter nal Lab) Neutrophil Absolute (ANC) - Automated 3.94(Exte rnal Lab) Lymph Absolute Manual 1.93(Exte rnal Lab) Monocyte Abs 0.5(Exter nal Lab) Eos Absolute Manual 0.21(Exte rnal Lab) Baso Absolute Manual 0.03(Exte rnal Lab) Blood 04/20/2021 Historical Provider HEMATOLOGY ORDERA BLES * (ABNORMAL) [facility] External Results (04/20/2021) Cholesterol, Total 241(ExtH) Triglyceride 101(Exter nal Lab) HDL Cholesterol 57(Heavy Equipment Service Manager al Lab) LDL Cholesterol 164(ExtH) Hemoglobin A1c 5.6(Exter nal Lab) Glucose Fasting 97(Heavy Equipment Service Manager al Lab) Blood Urea Nitrogen 26(ExtH) Creatinine 1(Externa l Lab) Sodium 140(Exter nal Lab) Potassium 4.2(Exter nal Lab) Chloride 102(Exter nal Lab) Carbon Dioxide 28(Heavy Equipment Service Manager al Lab) Anion Gap 10(Heavy Equipment Service Manager al Lab) Calcium 8.6(Exter nal Lab) Albumin 3.8(Exter nal Lab) Aspartate Aminotransferase 11(ExtL) Alanine Aminotransferase 20(Heavy Equipment Service Manager al Lab) Alkaline Phosphatase 61(Heavy Equipment Service Manager al Lab) Bilirubin, Total 0.3(Exter nal Lab) Est Glomerular Filtration Rate 57.15(Ext ernal Lab) Vitamin D Total 25 OH 35.3(Exte rnal Lab) Insulin 26.7(Exte rnal Lab) Ferritin 109(Exter nal Lab) Vitamin B12 584(Exter nal Lab) 04/20/2021 Historical Provider POINT OF CARE TREY T ORDERABLES documented in this encounter Visit Diagnoses Not on filedocumented in this encounter Care Teams Diaphragm Builder Relationship Specialty Start Date End Date Carolyn Christianson APRN PCP - General Family Medicine 12/21/20 10/02/22 documented as of this encounter
--- OUTSIDE RECORDS SUMMARY | 2024-03-20 11:54 | XMS_ITS | Encounter Summary ---
[place] [address] Care Team Providers Care Block Sawyer Name Role Phone Sandor Castaneda MD Primary Care Provider [phone] Reason for Visit * Reason Comments Establish Care * Consultation (Routine) - Specialty Diagnoses / Procedures Referred By Contac t Referred To Contact Allergy Diagnoses Allergies Sandor Castaneda MD [address] [place] [address] [facility] [address] [place] [address] Referral ID Status Reason Start Date Expiration Date V isits Requested Visits Authorized [id number] Consult, Test & Treat PCP Updated and/or Approved 04/09/2019 04/09/2020 6 6 Encounter Details Date Type Department Care Team (Late st Contact Info) Description 09/22/2019 8:30 AM EDT Office [place] [address] Kinga Rios MD Allergic rhinoconjunctivitis; Eczema, unspecified type Social History Tobacco Use Types Packs/Day Years [...] Sign Reading Time Taken Comments Blood Pressure 131/84 09/22/2019 8:36 AM EDT Pulse 61 09/22/2019 8:36 AM EDT Temperature - - Respiratory Rate - - Oxygen Saturation 99% 09/22/2019 8:36 AM EDT Inhaled Oxygen Concentration - - Weight 116.1 kg (256 lb) 09/22/2019 8:36 AM EDT Height 165.1 cm (5' 5) 09/22/2019 8:36 AM EDT Body Mass Index 42.6 09/22/2019 8:36 AM EDT documented in this encounter Patient Instructions * Patient Instructions* Kinga Rios MD - 09/22/2019 8:30 AM EDT - Start levocetirizine 5mg daily - Discontinue Sandy ( fexofenadine) - Continue montelukast 10mg nightly. If you develop vivid dreams, headaches or mood changes, then stop the montelukast. - Please hold antihistamines ( ie Xyzal/ levocetirizine, Zyrtec/ cetirizine, Sandy/ fexofenadine,Claritin/ loratadine, Benadryl/ diphenhydramine) for at least five days prior to your follow up appointment for allergy skin tests. - Moisturize twice daily Vanicream moisturizer cream - Avoid applying steroid cream ( triamcinolone) around the eyes - Follow up with the pharmacist regarding Protopic prescription. - Use hypoallergenic products - Avoid lanolin documented in this encounter Progress Notes * Kinga Rios MD - 09/22/2019 8:30 AM EDT Chief Complaint Patient presents with ??? Establish Care HPI The patient is a pleasant 54 y.o. year old female whose consultation was requested by . Thereason for consultation is evaluation and management of allergies. In her 40s, she started to have postnasal drip, nasal congestion b/l and clear rhinorrhea through the year. She has also started to have sneezing spells as the years have gone by. Once monthly, she has eyelid swelling with erythema with associated eczema. The swelling lasts about one week. She takes fish oil orally with improvement in her eye symptoms. She applies coconut oil on her eyelids. The patient had allergy testing with Dr. Clifton in [facility] and had positive testing to mold. She takes fexofenadine and montelukast nightly without any improvement. She takes Benadryl with some improvement, but makes her drowsy. She tried Flonase, but did not tolerate it because it irritated the back of her throat. She performs salt water rinses a couple of times per week. No sinonasal surgery. She has decreased sense of smell. No history of it support consultant. She has a history of eczema. Involves her lateral thighs b/l, behind the knees b/l, in her elbows b/l and back of her arms b/l. She also has eczema on her eyes. Eczema flares during the winter, except her eyes which occurs through otu the year. She has not been using moisturizer because they irritate her skin. She applies coconut oil. She did not start Protopic because of cost. She applies triamcinolone cream once in awhile, avoids eye area, with some improvement in the pruritus associated with the eczema. She has been prescribed Plaquenil for hair loss. She did not start it because of s/e profile. No history of asthma. Ex- smoker. Quit about 25 years ago. Her child smokes outdoors. She has a dog, that does not sleep in her bedroom. No woodstove or fireplace. She lives in a house with hot air heat. 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 Review of Systems: All other systems reviewed and negative except as noted below: Review of Systems HENT: Positive for congestion. Rhinorrhea, postnasal drip, sneezing, facial pressure Eyes: Itchy, red, discharge, blurry, dry Cardiovascular: Murmur Respiratory: Positive for shortness of breath and snoring (On CPAP). Skin: Positive for rash. Musculoskeletal: Positive for joint pain. Gastrointestinal: Heartburn, occasional diarrhea Neurological: Positive for headaches. Psychiatric/Behavioral: Positive for depression. All other systems reviewed and are negative. Allergies, medications, past medical/ surgical history were reviewed and updated in eD. Allergies: Adhesive tape and Mold Medications: Outpatient Medications Marked as Taking for the 09/22/19 encounter (Office Visit) with Darion Rios MD Medication Sig Dispense Refill ??? Dorado-3 Fatty Acids 100 mg Tablet, Chewable Daily ??? montelukast (Singulair) 10 mg Tablet Take 10 mg by mouth nightly. ??? levothyroxine (Synthroid) 150 mcg Tablet Take 150 mcg by mouth daily. ??? [DISCONTINUED] fexofenadine (SANDY) 180 mg Tablet TAKE ONE TABLET BY MOUTH EVERY DAY ??? triamcinolone (KENALOG) 0.1 % Cream Apply [...] ??? ibuprofen (ADVIL;MOTRIN) 200 mg tablet ??? [DISCONTINUED] levothyroxine (SYNTHROID) 75 mcg tablet 75MCG = 1 Tablet(s), PO, Once daily Past Medical and Social History: History reviewed. No pertinent past medical history. History reviewed. No pertinent surgical history. Family history: Family History Problem Relation Age [...] on phone: None Gets together: None Attends episcopalian service: None Active member of club or organization: None Attends meetings of clubs or organizations: None Relationship status: None ??? Intimate partner violence Fear of current or ex partner: None Emotionally abused: None Physically abused: None Forced sexual activity: None Other Topics Concern ??? None Social History Narrative ??? None Physical Exam: Vital signs reviewed. Most Recent Vitals: 09/22/19 0836 BP: 131/84 Pulse: 61 SpO2: 99% Normal Except General: - No apparent distress [...] rate and rhythm - No pedal swelling GI: - Abdomen soft - Bowel sounds present - No hepatosplenomegaly Lymph: - No significant cervical, supraclavicular or infraclavicular lymphadenopathy Musculoskeletal: - Nl gait and station Extremities: - No clubbing, cyanosis, or edema Skin: - No rashes Neuro: - Nl gait and station Psych: - Nl and age appropriate mood and affect - Judgement and insight intact TESTS/PROCEDURES IMPRESSION/REPORT/PLAN 1. Allergic rhinoconjunctivitis 2. Eczema, unspecified type - The patient has symptoms consistent with allergic rhinoconjunctivitis and eczema that persist despite current regimen. Environmental allergies can trigger symptoms to allergic rhinoconjunctivitis and eczema. Patient is interested in allergy skin testing to identify potential environmental allergen triggers. -I reviewed with the patient the consent form for allergy skin tests. The indication is rhinitis and conjunctivitis. Alternatives include serum IgE testing for environmental allergens. Benefits of a skin testing is identifying environmental allergens that may be triggering symptoms. Risks include but are not limited to: Allergic reaction, rash, hives, angioedema, difficulty breathing, wheezing, chest tightness, diarrhea, abdominal pain, severe anaphylaxis including , infection, scarring and large local reaction. I reviewed with the patient in detail the procedure for allergy skin testing. I personally reviewed the consent form with the patient. The patient's questions were answered. The patient signed the consent form. -Start levocetirizine 5 mg once daily -Discontinue fexofenadine (Sandy) -Continue montelukast 10 mg nightly. Reviewed black box warning for psycho- behavioral changes. Discussed side effects including vivid dreams, headaches and mood changes. - Discussed with the patient the importance of moisturizer use in preventing eczema flares. -Moisturize twice daily with Vanicream moisturizer cream - Avoid applying steroid cream around the eyes. Patient has a previous prescription for triamcinolone. -Patient has a prescription for Protopic and will follow up with the pharmacist for any changes in cost -Use hypoallergenic products -Avoid lanolin Orders Placed This Encounter Procedures ??? Allergy Skin Test Medication ordered or changed during this encounter, will not show discontinued medications Medications ??? levocetirizine (XYZAL) 5 mg Tablet Sig: Take 1 tablet by mouth daily. Dispense: 90 tablet Refill: 3 Return in about 1 week (around 09/29/2019), or if symptoms worsen or fail to improve, for SPT- Environmental allergies. eDH record was reviewed. Written instructions were [...] 3:20 PM EST Office Visit Dermatology at [facility] [address] [place] [address] Felicitas Llanes MD [facility] [address] [place] [address] 04/26/2024 4:00 PM EST Office Visit Nephrology [place] [address] Denia Xiao APRN [facility] [place] [address] documented as of this encounter Visit Diagnoses Diagnosis Allergic rhinoconjunctivitis Acute atopic conjunctivitis Eczema, unspecified type documented in this encounter Care Teams Block Sawyer Relationship Specialty Start Date End Date Sandor Castaneda MD [address] [place] [address] PCP - General Family Medicine 06/02/17 12/20/20 documented as of this encounter
--- OUTSIDE RECORDS SUMMARY | 2024-03-20 11:54 | XMS_ITS | Encounter Summary ---
Author Organization [facility] [place] [address] Care Team Providers Care Medical Sociologist Name Role Phone Carolyn Christianson APRN Primary Care Provider [phone] Reason for Visit * Consultation (Routine) - Closed Specialty Diagnoses / Procedures Referred By Yury thornton Referred To Contact Weight and Wellness Diagnoses Sleep apnea, unspecified Morbid (severe) obesity due to excess calories Body mass index (BMI) 45.0-49.9, adult Carolyn Christianson APRN [address] [place] [address] [facility] [address] [place] [address] Referral ID Status Reason Start Date Expiration Date V isits Requested Visits Authorized [id number] Closed Consult, [facility] PCP Updated and/or Approved 12/14/2020 12/14/2021 6 6 Encounter Details Date Type Department Care Team (Late st Contact Info) Description 04/13/2021 12:45 PM EST TH Visit (TeleHealth) Weight and Wellness at [facility] [address] [place] [address] Denia Khalil MD [facility] [address] [place] [address] Class 3 severe obesity due to excess calories with body mass index (BMI) of 50.0 to 59.9 in adult, unspecified whether serious comorbidity present (Primary Dx) Social History Tobacco Use Types [...] - Inhaled Oxygen Concentration - - Weight 138.8 kg (306 lb) 04/13/2021 1:08 PM EST per PCP 11/2020 Height 165.1 cm (5' 5) 04/13/2021 1:08 PM EST Body Mass Index 50.92 04/13/2021 1:08 PM EST documented in this encounter Patient Instructions * Patient Instructions* Denia Khalil MD - 04/13/2021 12:45 PM EST I recommend you get a scale for use at home. It is beneficial for monitoring response to weight loss treatment. I have ordered FASTING labwork for you to have done prior to your next visit with me. At [facility] It was a pleasure seeing you today, and I look forward to being an adviser in your weight loss journey. I have made referrals for the following: [x]Nutrition [x]Health literacy coach []Sleep Medicine [x]Research coordinator - our research coordinator will contact you to discuss current studies at the [facility] Your next steps: You will see a registered dietitian who will talk to you about your specific dietary choices. You will see a health literacy coach who will talk to you about behaviors related to achieving a health lifestyle. After those 2 visits, you and I will meet again to put all that information together and decide what are the next best steps for you to be most successful. Our patient scheduler will set up these visits on your way out today. If you were not seen in the office, OUR INTERCHANGE AGENT WILL CALL YOU TO SCHEDULE THESE VISITS. If you donot hear from us within 3 business days, please call us at: [phone]. Below is a summary of our discussion today. As we discussed, obesity is a complicated, multifactorial disease state, and each individual responds differently to the variety of treatments we can offer you. No one thing works for everyone, but we tailor our treatments based on the pillars of obesity treatment as outlined by the Obesity Medicine Association, see below. Over time we will touch on all of these pillars, and each steam brush operator, will help you set achievable, actionable goals, a.k.a, SMART goals within each of these pillars. (Your SMART goals today, are listed below). For more information on the disease of obesity, associated diseases and intervention, I recommend reviewing the following websites: understanding obesity Home Page - Obesity Action Coalition (yes, politicial action committee, but a moseley part of their mission is education) Definition & Facts for Adult Overweight & Obesity NIDDK (nih.gov) (similar content about the disease of obesity) Appetite control The drill instructor, The GoGetter and The Sleepy Executive 720p - Yani video Sleep apnea and weight https://www.sleepfoundation.org/sleep-apnea/euplyq-zack-bkz-sleep-apnea Insulin resistance and weight https://obesitymedicine.org/khoxled-myv-yqqfvfq-resistance/ https://www.secondnature.io/us/guides/diabetes/qwtplav-eygdvtjeup-qvquxr-gain Dr. Jhonatan Godwin: Fasting as a Therapeutic Option for Weight Loss - YouTube Https://www.youtube.com/watch?v=do1cjcjk7lQ https://www.youtube.com/watch?v=34Ilp0BpNYN The Mediterranean Diet https://Zoutons.org/ https://www.health.harvard.edu/blog/t-iszfluwcg-vemji-jn-pye-fvlztzplpwecm-diet- 2322875741635 An important thing to remember as you make changes in your life is that they must be sustainable, that is, whatever you do to lose weight, you will need to do to sustain weight loss. As you try new and healthier food/activity/behaviors, assess whether you can make these changes for the long-term. If the answer is, No way, that is impossible! then we will work together to find other actionable goals to try. Most importantly, for this journey you have to be willing to try to make change. If youcan make change, you will be successful. Your specific SMART goals today: Goals ??? Actrivity Open your yoga rusty and see if you might be interested in trying this gentle form of movement to activate your muscles. ??? Self monitoring Keep food log until you are seen by the dieititian. Record everything you eat or drink, include time eaten and any emotional changes that are significant. Below are Healthy Habit guidelines for optimal health that we will help you to achieve OVER TIME. They are big goals that we break down into smaller more achievable SMART goals. We do not expect you to adopt everything all at once or make huge leaps. We don't even expect that you will achieve them all because nobody is perfect! Nutrition: Whole food quality diet, more plants. (See the back page of your Welcome Book). This is a general recommendation for all patients. Your farm crew leader and provider will help make more specific recommendations for you if appropriate. Avoid drinking your [...] goal for cardiac activity. You can build to this level slowly and methodically. Your Weight&Wellness team will help you develop a plan that works for you. Sleep: 7-8 hours of restful sleep per night with minimal or no interruptions. If this is not happening, talk to your provider about how we can help. Accountability: most people benefit from some form of accountability. This can be: food tracking - either in an rusty or on paper, monitoring weight daily or monthly, exercise tracking. Pick something to track. Stress management: managing stress comes in many different forms from meditation to exercise to simply increasing mindfulness throughout the day. Your health literacy coach is well-equipped to guide you to find something to look forward to everyday. Eating behaviors: many people benefit from restricting the hours in which they eat. You can choose an eating window of 8-12 hours to start. Make a pact with yourself that you will not take in anything with caloric content outside this window. Your farm crew leader may make further recommendations documented in this encounter Progress Notes * Denia Khalil MD - 04/13/2021 12:45 PM ESTSummary: initial consult Patient provided verbal consent prior to initiation of this telemedicine encounter and expressed understanding that the telemedicine visit may be billed similar to a clinic visit, pt was seen while via [x] Video [] phone [facility] Patient Name: Liss Mosley Date of : 1965 Age: 55 y.o. Referring provider: Carolyn Christianson Dear Carolyn Christianson, Carolyn WILLIS Thank you for referring Liss Mosley to the [facility] for a consultationfor obesity management. I reviewed past records including notes, labs, and other evaluations as reviewed below. I have briefly summarized the visit below. I look forward to collaborating with you, and to that end, I will make medication adjustments as appropriate based on the patient's ongoing state of health. Medications that I often manage include, but are not limited to, anti-obesity meds, diabetic medications and anti-hypertensives, and any adjustments I make will be communicated to you to maintain seamless care. Thank you again for allowing the [facility] to join Liss's healthcare team. SUMMARY OF VISIT: Liss Mosley presented to the [facility] for a consultative visit regarding obesity management. 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 I spent a total of 60+ minutes in nrub-ap-czem discussion/counseling regarding the diagnosis of obesity, interventions for treatment, and obesity related co- morbidities as well as documentation of visit and chart review. We discussed and agreed upon the pillars of obesity treatment. Pharmocotherapy: Discussion of antiobesity medications deferred to next visit If possible, medications that promote weight gain should be avoided and medications that are weight-neutral or promote weight loss should be considered. Obesogenic medications-see plan below: levocetirizine CHIEF COMPLAINT: Management of excess weight HISTORY OF PRESENT ILLNESS: Weight History: No flowsheet data found. Liss Mosley has had gradual weight gain due to: menopause/puberty Why is now the time to try again? Barriers to success: Pain and Other:lack of desire to cook for one Liss Mosley is here today because: I feel like crap Autoimmune dz: Ning's, alopecia areata Weight hx: Awareness: puberty - up and down to normal throught 20s, 30s, and 40s. By menopause, could not loseanymore Impact on life: knees and body hurts, trouble getting up and down, also severe allergies for which she is modifying diet (AIP diet), tired Initial weight 04/13/21: 305 Initial Body mass index is 50.75 kg/m??. Goal weight: 150-175# - last under 200# 10 years ago. 10% loss: 275? Other goals: less achey is the biggest goal Prior treatment/attempts to lose: Successful attempts in the past: WW - less successful in recent years - lost 30- 40# before COVID and now with loss of support/depression has regained. AOM HX: none Hx metabolic surgery: none No flowsheet data found. Obesogenic medications: Levocetirizine?, Obesity related co-morbidities: See above No flowsheet data found. COMORBIDITIES ADDRESSED Sleep: Circadian: []weight shifter work []irregular sleep timings [x]Normal day/night schedule To bed: 9-10P To sleep: quickly Wake up: 5:30AM Frequency of awakenings at night: minimal Dx/Treated for TESSA? Diagnosed, CPAP No flowsheet data found. Food Behaviors In your opinion do you eat a healthy diet? Pretty healthy until recently, but with isolation has craved more sugar More eating out b/c recently drive thru's Appetite: Normal, starts around 11AM; Coffee or tea in the morning, lunch and dinner daily; snack while cooking. Satiety: normal, but in the evening low Eating out of: [x]Hunger []Habit []It's time. [x]Boredom-recently []Emotions Eating patterns: [] Mindless eating [] binge eating [x] Portion control [] skips meals [] Night eating - rare Movement: No flowsheet data found. Is ambulation limited most or all of the time? Joint pains/back pain Tolerance: she can climb a flight of stairs - wheeze continuously -easily winded Purposeful exercise now? None - too hard to walk Activity enjoyed in past? 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 Stress Management: Low moseley and happy Self-monitoring: [] Daily or weekly weights [] Food log/rusty [] Other [x] None currently REVIEW OF SYSTEMS: 10 systems reviewed, positives as below Review of Systems No flowsheet data found. No flowsheet data found. No flowsheet data found. MEDICAL HISTORY Medical and Surgical History: Reviewed. Past Medical History: Diagnosis Date ??? Allergic rhinitis Gynecologic: using/taking reliable contraception ? Post menopausla Family History: Reviewed. No flowsheet data found. Family History Problem (# of Occurrences) Relation (Name,Age of Onset) Allergic Rhinitis (4) Mother, Father, Sister, Brother Asthma (2) Mother, Sister Obesity/weight issues: brothers/aunts/grandmother Mother - diet controlled DM Social History: Reviewed. Food insecurity? Not addressed No flowsheet data found. VITAL SIGNS: Vitals: 04/13/21 1308 Weight: (!) 138.8 kg (306 lb) Height: 165.1 cm (5' 5) Body mass index is 50.92 kg/m??. PHYSICAL EXAM: Gen: 55 y.o. year old female with obesity who appears stated age. NAD. Appearance: appropriate, well-kempt Psych: pleasant, conversant and engaged, normal affect, cognition and mood. PREVIOUS LABS AND IMAGING: Reviewed Last CBC Lab Results Component Value Date WBC 10.2 (H) 05/12/2018 RBC 4.60 05/12/2018 HGB 13.1 05/12/2018 HCT 41.8 05/12/2018 MCV 90.9 05/12/2018 MCH 28.5 05/12/2018 MCHC 31.3 (L) 05/12/2018 PLATELET 252 05/12/2018 RDWCV 13.9 05/12/2018 Last CMP Lab Results Component Value Date NA 140 05/12/2018 K 4.4 05/12/2018 CL 103 05/12/2018 CO2 26 05/12/2018 BUN 24 (H) 05/12/2018 CREATININE 0.78 05/12/2018 GLUCOSE 78 05/12/2018 CALCIUM 9.3 05/12/2018 ESTGFR 86 05/12/2018 Lab Results Component Value Date ALT 13 05/12/2018 AST 14 05/12/2018 ALKPHOS 61 05/12/2018 BILITOT 0.2 05/12/2018 ALBUMIN 4.3 05/12/2018 PROT 7.8 05/12/2018 Cortisol normla Nov 2020 Lipid Panel Last 3 Hemoglobin A1Cs No results found for: HA1C Latest TSH No results found for: TSH No results found for: LABINSU No results found for: GLUCFASTING No results found for: FERRITIN No results found for: [id number] No results found for: 25OHVITD ASSESSMENT AND PLAN Liss Mosley is a 55 y.o. female with uncontrolled obesity who presented to [facility] today for medical evaluation with associated co-morbidities as above. INITIAL EVALUATION: FACTORS CONTRIBUTING TO OBESITY/INTERVENTION Risk Stratification: [x]Probable insulin resistance []evaluate liver Obesogenic meds: []none []diabetic [x] anti-histamine[]anti-anxiety []mood stabilizers []anti HTN []sleep meds []neuropathic pain control []contraceptives []chronic steroids Plan: []request PCP/specialist address []plan determined with OM provider []consulted with pharmacy[x]No change at this time []Other Co-morbidities to address: Referrals: Dietitian, Health Underlay Stitcher, AOM: Deferred decision making until f/u. Medications to consider: []insulin sensitizing meds []phentermine []topiramate []bupropion []naltrexone Factors contributing to decision making: ONGOING INTERVENTIONS For specific behavioral interventions, see goals Nutrition: discussed whole food, quality diet; specific recommendations per RD []good base knowledge []needs development: []may benefit from decreasing carbohydrate intake []ROLAND/IF may be of benefit []ROLAND/IF NOT RECOMMENDED due to medical concerns []develop regular eating schedule []Recommend culinary intervention, referred Behavior: [] No concerns [x]Eating out of boredom/emotions []fasting all day/overeating in the evening []undefined eating events []Mindless eating [x]grazing-early evening []binging [x] portion control []late evening snacking []eating overnight [] struggles with/maintaining change []Good candidate for ACT, will discusse at followup, referred Activity: provided resistance bands and booklet Barriers: []needs cardiac eval []injury/pain preventing activity right now Stress Management: [x]no concerns []has counselor []suggested counseling []request HC address Sleep: [x]no concerns []refer to sleep med to r/o TESSA []refer to CBTi group/individual counseling []request HC address Self-monitoring: [x]Food log []regular weight checks []request frequent HC follow up []other Pathway: deferred until second visit except: []Individual []HLP []Surgery []Culinary []ACT []Monthly Lifestyle Classes Discussion 04/16/21: Pillars, Insulin resistance Diagnoses and all orders for this visit: Class 3 severe obesity due to excess calories with body mass index (BMI) of 50.0 to 59.9 in adult, unspecified whether serious comorbidity present Orders Placed This Encounter Procedures ??? CMP w/fasting Glucose ??? CBC (with Diff) ??? Hemoglobin A1c ??? Insulin, total ??? Lipid Panel (Reflex Direct LDL) ??? Vitamin D, 25-Hydroxy ??? Ferritin ??? Vitamin B12 Goals Addressed This Visit's Progress ??? Actrivity Open your yoga rusty and see if you might be interested in trying this gentle form of movement to activate your muscles. ??? Self monitoring Keep food log until you are seen by the dieititian. Record everything you eat or drink, include time eaten and any emotional changes that are significant. Care pathway: Pathway: [facility] PATHWAY - ADULT 04/13/2021 Obesity Medicine Activate Return in about 6 weeks (around 05/25/2021) for MD Clinic, PATHWAY, + TEJA, //RD 1-2 wks //HC 1-[address] I spoke with Liss about opportunities to participate in research and to be contacted by our research hair or beauty salon assistant. They indicated that they are: [] INTERESTED [] NOT INTERESTED // [x] NOT ADDRESSED Episode No flowsheet data found. URICA: <8 Precontemp, 8-12 Contemp, 12+ Prep TFEQ: Look at transformed scores, average is 50, +/-2SD is sigfnif, consider referral >70 WEL-SF: Range 0-80, higher = better PROMIS Avg score = 50 REAP score 13-39, higher = more diversity in diet, better * Collette Adair CMA - 04/13/2021 12:45 PM EST Please send patient welcome pack with resistance bands and recipe book. ??Thank you! The above has been mailed to the patient. Collette Adair CMA * Collette Adair CMA - 04/13/2021 12:45 PM EST Please send orders to ??[facility] . Thank you! Heather The above was faxed to [facility] with confirmation. Collette Adair CMA documented in this encounter Plan of Treatment Upcoming Encounters Date Type Department Care Team (Late st Contact Info) Description 04/13/2024 3:20 PM EST Office Visit Dermatology at [facility] [address] [place] [address] Felicitas Llanes MD [facility] [address] [address] 04/26/2024 4:00 PM EST Office Visit [place] [id number] Denia Xiao, ALBA [facility] [place] [address] documented as of this encounter Goals Goal [...] calories with body mass index (BMI) of 50.0 to 59.9 in adult, unspecified whether serious comorbidity present- Primary documented in this encounter Care Teams Medical Sociologist Relationship Specialty Start Date End Date Carolyn Christianson APRN PCP - General Family Medicine 12/21/20 10/02/22 documented as of this encounter
--- OUTSIDE RECORDS SUMMARY | 2024-03-20 11:54 | XMS_ITS | Encounter Summary ---
Author Organization [facility] [place] [address] Care Team Providers Care Biochemistry Technician Name Role Phone Sandor Castaneda MD Primary Care Provider [phone] Encounter Details Date Type Department Care Team (Late st Contact Info) Description 05/15/2018 Telephone Dermatology at [facility] [address] [place] [address] Leny Barcenas MD Social History Tobacco Use Types Packs/Day Years Used Date Smoking Tobacco: Former Smokeless Tobacco: Never Comments:quit 1990 Sex and Gender Information Value Date Recorded Sex Assigned at Not on file Gender Identity Not on file Sexual Orientation Not on file documented as of this encounter Miscellaneous Notes * Telephone Encounter - Leny Barcenas MD - 05/15/2018 11:06 AM EST Called patient to review labs. Left VM. CBC, CMP wnl - mild leukocytosis, will re-check in 3-4 months after initiation of Plaquenil. Instructed to call back if further questions. documented in this encounter Plan of Treatment Upcoming Encounters Date Type Department Care Team (Late st Contact Info) Description 04/13/2024 3:20 PM EST Office Visit Dermatology at [facility] [address] [place] [address] Felicitas Llanes MD [facility] [address] [address] 04/26/2024 4:00 PM EST Office Visit [place] [address] Denia Xiao APRN [facility] [address] documented as of this encounter Visit Diagnoses Not on filedocumented in this encounter Care Teams Biochemistry Technician Relationship Specialty Start Date End Date Sandor Castaneda MD [address] [place] [address] PCP - General Family Medicine 06/02/17 12/20/20 documented as of this encounter
--- OUTSIDE RECORDS SUMMARY | 2024-03-20 11:54 | XMS_ITS | Encounter Summary ---
Author Organization [facility] [place] [address] Care Team Providers Care Grove Superintendent Name Role Phone Carolyn Christianson APRN Primary Care Provider [phone] Encounter Details Date Type Department Care Team (Latest Contact Info) Description 05/23/2021 9:30 AM EST TH Visit (TeleHealth) Weight and Wellness at [address] [address] Arlin Mac I, HILLARY [facility] [place] [address] Class 3 severe obesity due to excess calories with body mass index (BMI) of 50.0 to 59.9 in adult, unspecified whether serious comorbidity present Social History [...] Instructions * Patient Instructions* Arlin Mac I, HILLARY - 05/23/2021 10:02 AM EST Goals Actrivity Open your yoga rusty and see if you might be interested in trying this gentle form of movement to activate your muscles. Nutrition Nutrition Goals: 1. Aim for one 24 hour fasting day per week 2. First meal after fasting to be between 400-500 calories - (palm size of protein, 1.5 cups veggies, 1/2 cup only of starch) 3. Avoid eating after 7 pm 4. Track calories to aim for ~ 1,475 for weight loss - Use MyITema food tracker - PRE-Track as muchas possible 5. Aim to limit non-nutritive calories (for example chocolate and wine) to ~ 150 calories 6. Use measuring tools for accuracy Self monitoring Keep food log until you are seen by the dieititian. Record everything you eat or drink, include time eaten and any emotional changes that are significant. documented in this encounter Progress Notes * Arlin Mac RD - 05/23/2021 9:30 AM EST Nutrition Intervention for Weight Management Initial RD visit with KRISTYN Blair 1965 Assessment/Nutrition Diagnosis: Pt at increased nutritional risk related to excessive calorie intake and sub optimal physical activity resulting in overweight/obesity as evidenced by BMI and diet recall Telehealth / telephone visit conducted while patient was at home at the following address: [address] [place] [phone] Food Trackers: keeping a hand written log Pert. Meds: not at this time Activity: has been trying to implement some strength training exercises for legs (to help knee painand balance) Weight Today: Vitals 04/13/2021 Height (Setswana) 65 Height (Metric) 165.1 cm Weight (Setswana) 306 lbs Weight (Metric) 138.801 kg BMI (Calculated) 50.92 kg/m2 Typical Dietary Intake: B: 11 am Protein smoothie; coconut milk and fruit (I was still hungry) OR apple and eggroll soup L: typically avoids this time of day (has had apple and almonds and coconut chips) OR tuna with olive oil D: 5 pm home made egg roll soup OR hamburg Rashida OR chicken with roasted vegetables S: maybe a glass of wine, or a little chicken S: 7:30 fresh pinapple Or 8:45 pm an apple OR fitzgerald tomaotes Typical Beverages: occasional wine; black coffee,seltzer or plain water Patient Goals from Team: Goals ??? Actrivity Open your yoga rusty and see if you might be interested in trying this gentle form of movement to activate your muscles. ??? Self monitoring Keep food log until you are seen by the dieititian. Record everything you eat or drink, include time eaten and any emotional changes that are significant. Interview: revisiting healthy eating and accuracy Nutrition Goals: 1. Aim for one 24 hour fasting day per week 2. First meal after fasting to be between 400-500 calories - (palm size of protein, 1.5 cups veggies, 1/2 cup only of starch) 3. Avoid eating after 7 pm 4. Track calories to aim for ~ 1,475 for weight loss - Use mobileo food tracker - PRE-Track as muchas possible 5. Aim to limit non-nutritive calories (for example chocolate and wine) to ~ 150 calories 6. Use measuring tools for accuracy Assessing Calorie Goals at this time? RMR ~ 1,976 Rec.s: ~1,475 for moderate weight loss Monitor/Evaluate: Will follow up in 4 weeks Aim for 5-10% weight loss from ABW x 3-6 months from initial visit Thank you Arlin Mac MS RD LD 45 minutes were spent in visit today, including contact with patient, chart review, and documentation * Collette Adair CMA - 05/23/2021 9:30 AM EST Please Mail AVS to patient and Sample Meal Plans Thank you Arlin The above has been mailed the patient. Collette Adair CMA documented in this encounter Plan of Treatment Upcoming Encounters Date Type Department Care Team (Late st Contact Info) Description 04/13/2024 3:20 PM EST Office Visit Dermatology at [facility] [address] [place] [phone] Felicitas Llanes MD [facility] [address] [address] 04/26/2024 4:00 PM EST Office Visit [place] [address] Denia Xiao APRN [facility] [place] [address] documented as of this encounter Goals Goal [...] in adult, unspecified whether serious comorbidity present documented in this encounter Care Teams Grove Superintendent Relationship Specialty Start Date End Date Carolyn Christianson APRN PCP - General Family Medicine 12/21/20 10/02/22 documented as of this encounter
--- OUTSIDE RECORDS SUMMARY | 2024-03-20 11:54 | XMS_ITS | Encounter Summary ---
Author Organization [facility] Britt[place] [address] Care Team Providers Care Aircraft General Repair Mechanic Name Role Phone Carolyn Christianson APRN Primary Care Provider [phone] Reason for Visit * Reason Comments Medication Refill Encounter Details Date Type Department Care Team (Late st Contact Info) Description 11/14/2020 [place] [phone] Kinga Rios MD Social History Tobacco Use Types Packs/Day [...] Visit Dermatology at [facility] [address] [place] [phone] Felicitas Llanes MD [facility] [address] [place] [address] 04/26/2024 4:00 PM EST Office Visit Nephrology [place] [address] Denia Xiao APRN [facility] [place] [address] documented as of this encounter Goals Goal Patient Goal Type Associated Problems Recent Progress Patient-Stated? Author movement Exercise No Arsh So Note: Try cardio chair exercises. Health Primary Care Provider will send links to videos. Self monitoring [...] the pause (STOP, and urge surfing. Health Primary Care Provider will mail hand-outs. documented as of this encounter Visit Diagnoses Not on filedocumented in this encounter Care Teams Aircraft General Repair Mechanic Relationship Specialty Start Date End Date Carolyn Christianson APRN PCP - General Family Medicine 12/21/20 10/02/22 documented as of this encounter
--- OUTSIDE RECORDS SUMMARY | 2024-03-20 11:54 | XMS_ITS | Encounter Summary ---
Author Organization [facility] [place] [address] Care Team Providers Care Terrazzo Tile Setter Name Role Phone Carolyn Christianson APRN Primary Care Provider [phone] [phone] Encounter Details Date Type Department Care Team (Late st Contact Info) Description 04/13/2021 Telephone Weight and Wellness at [facility] [address] [place] [address] Collette Adair, MIRYAM Social History Tobacco [...] Telephone Encounter - Collette Adair CMA - 04/13/2021 11:11 AM EST [facility] Diver Assistant Pre-telemedicine Visit Phone Note Liss Mosley 1965 [x] Patient was not reached Patient was reached and the following information was reviewed/obtained per protocol: [] Confirmed patient name and date of [] Confirmed ZOOM downloaded and functioning [] ZOOM appointment link sent if no MyDH [] Phone number to be reached is: [phone] REVIEW: [] Review of patient medications completed Have you started on any NEW medications? [] No [] Yes: [] Confirmed preferred pharmacy: [facility] Your provider might ask you what you ate the day prior to the visit Please weigh yourself before the appointment Pedi: Both parent and child need to be present for the visit documented in this encounter Plan of Treatment Upcoming Encounters Date Type Department Care Team (Late st Contact Info) Description 04/13/2024 3:20 PM EST Office Visit Dermatology at [address] [address] Felicitas Llanes MD [facility] DR [address] [place] [address] 04/26/2024 4:00 PM EST Office Visit [place] [address] Denia Xiao APRN [facility] [place] [address] documented as of this encounter Goals Goal [...] on filedocumented in this encounter Care Teams Terrazzo Tile Setter Relationship Specialty Start Date End Date Carolyn Christianson APRN PCP - General Family Medicine 12/21/20 10/02/22 documented as of this encounter
--- OUTSIDE RECORDS SUMMARY | 2024-03-20 11:54 | XMS_ITS | Encounter Summary ---
Author Organization [facility] Address [facility] [place] [address] Care Team Providers Care Steam Blocker Name Role Phone Carolyn Christianson APRN Primary Care Provider [phone] Reason for Visit * Reason Comments Follow-up Weight managment Encounter Details Date Type Department Care Team (Late st Contact Info) Description 06/07/2021 3:30 PM EST Office Visit Weight and Wellness at [address] [phone] Liza Yin MD [facility] DR [address] LUCIA[facility] [address] Class 3 severe obesity due to excess [...] Sign Reading Time Taken Comments Blood Pressure 147/79 06/07/2021 3:16 PM EST Pulse 64 06/07/2021 3:16 PM EST Temperature - - Respiratory Rate - - Oxygen Saturation 99% 06/07/2021 3:16 PM EST Inhaled Oxygen Concentration - - Weight 134.4 kg (296 lb 6.4 oz) 06/07/2021 3:16 PM EST Height 165.1 cm (5' 5) 06/07/2021 3:16 PM EST Body Mass Index 49.32 06/07/2021 3:16 PM EST documented in this encounter Patient Instructions * Patient Instructions* Liza Yin MD - 06/07/2021 4:16 PM EST Kaleb Leija, It was a pleasure speaking with you today. Here is what we discussed regarding using your calories in the most healthy way: Recommendations limit alcohol to one serving per night for women. Serving 5 oz. This is important for overall health. Additionally, if you are hungry, you should eat - choose something nourishing - can try cheese and fruit OR nuts/dark chocolate/fruit. If you are not hungry, you do not HAVE to eat all of the calories left. Keep up the great work! Meformin (XR) Brand Names Glucophage(XR), Fortamet, Glumetza How it works Decreases insulin resistance May decrease appetite When not to use Kidney function (GFR <30) During any procedure requiring IV contrast (must be held) Some liver diseases Starting this medication You must increase the dose slowly. You will have more severe side effects if you start on a high dose. Your doctor will start you at a low dose and prescribe slow titration, increasing the dose everyweek. Follow your provider's instructions. Common Side effects (not comprehensive) Constipation or diarrhea, nausea, indigestion, metallic taste What you can do Maintain good hydration Be patient as symptoms usually improve after 1-2 weeks of starting or making dose changes Ask your doctor about transitioning to long acting version, if applicable, to decrease side effects Monitoring If you do not achieve 5% weight loss at 12 weeks, we will increase the dose or try a different medication Uses Weight loss Diabetes Incretins/GLP 1 Receptor Agonists Brand (generic) Names [...] likely with once weekly and oral dosing What you can do EAT SLOWLY and [...] the same way that they help diabetics. https://www.diabeteseducator.org/practice/practice-tools/egcuqflo-gydzxnagnk-mbt ls/aco-0-nwovjsscn https://www.diabeteseducator.org/docs/default-source/practice/educator-tools/glp -1-medications/understanding_glp_final.pdf?sfvrsn=2 The following informational sheet will provide instruction for how to store and inject the injectable forms of incretins. https://www.diabeteseducator.org/practice/practice-tools/dpsdubmv-lyzpyheefy-xkb ls/hfu-1-fvpkrudrl documented in this encounter Progress Notes * Denia Khalil MD - 06/07/2021 3:30 PM ESTSummary: 2nd visit with MD [facility] [place] Patient Name: Liss Mosley Date of : 1965 Age: 55 y.o. Carolyn Christianson APRN Thank you for referring Liss Mosley to the [facility]. I saw her for a follow-up visit today, 06/22/21. Please see changes to care as documented in the assessment and plan. CHIEF COMPLAINT: F/u for treatment of WHO Class 3 / EOSS Stage 2 Obesity defined by initial BMI and comorbidities Depression, OA, TESSA and Thyroid dz (Ning's thyroiditis), elevated BP without dx.. This is Visit #2 [facility] visit for this 55 y.o. patient. [...] achey is the biggest goal Today's weight: 296.5# Change since prior: -9.5 [facility] Team: Denia Khalil MD, Arlin Mac, RD and Arsh So, Health [employer]gage Porter HPI TODAY PATIENT REPORTS: Has chatted with HC. With the RD, been doing MyPlate Soheila, 1400 eileen/day Fasting for 24 hours once a week - I usually do not have breakfast anyway, hungry mid-afternoon - drink tea I have done really well. Maximizing calorie use, BUT choosing wine over food, drinking more than before - 4 nights out of the week, 2-3 glasses of wine last week. Pt states: I tend to be hungry at night and I want to finish eating by 7 pm. I cannot go to sleep if I am hungry - wine relaxes me and I can go to sleep. AOM: Currently taking: none AOM HX: metformin Started: 06/07/2021 Starting weight: 296 lbs Obesogenic meds: levoceteirizine COMORBIDITIES ADDRESSED: IR REVIEW OF LABS/DIAGNOSIS SINCE LAST VISIT Mildly elevated insulin - 26.7 [x] I reviewed past / interim records including notes and labs. ONGOING INTERVENTIONS (Topics discussed today in BOLD): For specific behavioral interventions, see goals Nutrition: specific recommendations per RD Discussed ETOH consumption at length - recommendations limit ETOH to one serving [...] Classes Discusssion 04/16/21: Pillars, Insulin resistance Discussion 06/22/21: Pathways, Medication options with r/b, specifically metformin and GLP1 agonists. Will start with Metformin. [facility] PATHWAY - ADULT 04/13/2021 Obesity Medicine Activate Goals ??? Actrivity Open your yoga soheila and see if you might be interested [...] ~ 1,475 for weight loss - Use [employer] food tracker - PRE-Track as muchas possible 5. Aim to limit non-nutritive calories (for example chocolate and wine) to ~ 150 calories 6. Use measuring tools for accuracy ??? Nutrition 06/07/2021 ??? Self monitoring Keep food log until you are seen by the dieititian. Record everything you eat or drink, include time eaten and any emotional changes that are significant. Food Behaviors In your opinion do you eat a healthy diet? Pretty healthy until recently, but with isolation has craved more sugar More eating out b/c recently drive thru's ?? Appetite: Normal, starts around 11AM; Coffee or tea in the morning, lunch and dinner daily; snack while cooking. Satiety: normal, but in the evening low Eating out of: [x]?Hunger []?Habit []?It's time. [x]?Boredom-recently []?Emotions Eating patterns: []? Mindless eating []? binge eating [x]? Portion control []? skips meals []? Night eating - rare ?? Movement: No flowsheet data found. ?? Is ambulation limited most or all of the time? Joint pains/back pain Tolerance: she can climb a flight of stairs - wheeze continuously -easily winded Purposeful exercise now? None - too hard to walk Activity enjoyed in past? 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 VITAL SIGNS: Vitals: 06/07/21 1516 BP: 147/79 BP Location (NBP): Left arm Patient Position: Sitting BP Cuff Sizes: Large Adult (32-43 cm) Pulse: 64 SpO2: 99% Weight: 134.4 kg (296 lb 6.4 oz) Height: 165.1 cm (5' 5) Body mass index is 49.32 kg/m??. PHYSICAL EXAM: Gen: Alert and appropriate, NAD. LABS: Lab Results Component Value Date WBC 6.64 (External Lab) 04/20/2021 RBC 4.92 (External Lab) 04/20/2021 HGB 13.8 (External Lab) 04/20/2021 HCT 44.7 (External Lab) 04/20/2021 MCV 90.9 (External Lab) 04/20/2021 MCH 28.0 (External Lab) 04/20/2021 MCHC 30.9 (External Lab) 04/20/2021 PLATELET 242 (External Lab) 04/20/2021 RDWCV 14.2 (External Lab) 04/20/2021 Lab Results Component Value Date NA 140 (External Lab) 04/20/2021 K 4.2 (External Lab) 04/20/2021 CL 102 (External Lab) 04/20/2021 CO2 28 (External Lab) 04/20/2021 BUN 26 (ExtH) 04/20/2021 CREATININE 1 (External Lab) 04/20/2021 GLUCOSE 78 05/12/2018 GLUCFASTING 97 (External Lab) 04/20/2021 CALCIUM 8.6 (External Lab) 04/20/2021 ESTGFR 57.15 (External Lab) 04/20/2021 Lab Results Component Value Date ALT 20 (External Lab) 04/20/2021 AST 11 (ExtL) 04/20/2021 ALKPHOS 61 (External Lab) 04/20/2021 BILITOT 0.3 (External Lab) 04/20/2021 ALBUMIN 3.8 (External Lab) 04/20/2021 PROT 7.8 05/12/2018 Lab Results Component Value Date CHLPL 241 (ExtH) 04/20/2021 HDL 57 (External Lab) 04/20/2021 TRIG 101 (External Lab) 04/20/2021 LDLCHOL 164 (ExtH) 04/20/2021 Lab Results Component Value Date HA1C 5.6 (External Lab) 04/20/2021 Lab Results Component Value Date LABINSU 26.7 (External Lab) 04/20/2021 Lab Results Component Value Date GLUCFASTING 97 (External Lab) 04/20/2021 Lab Results Component Value Date FERRITIN 109 (External Lab) 04/20/2021 Lab Results Component Value Date [id number] 584 (External Lab) 04/20/2021 25-OH Vit D Total (no units) Date Value Status 04/20/2021 35.3 (External Lab) Final ASSESSMENT AND PLAN Liss Mosley was seen in follow up today for ongoing obesity, not yet at treatment goal [] with improvement [] without change. Goals and treatment options were discussed. Continue medical management and lifestyle changes. FACTORS CONTRIBUTING TO OBESITY Obesogenic meds: Antihistamine Plan: No change at this time - no plan decided yet Co-morbidities addressed: Insulin resistance Mild IR AOM: Start metformin Factors contributing to decision making: NO hx of pancreatitis, NO Fam or personl hx of medullary thyroid ca Liss was seen today for follow-up . Diagnoses and all orders for this visit: Class 3 severe obesity due to excess calories with body mass index (BMI) of 50.0 to 59.9 in adult, unspecified whether serious comorbidity present Other orders - metFORMIN XR (Glucophage XR) 500 mg Tablet Sustained Release 24 hr; 1 po qdinner x 2 week, then 2po qdinner x 2 week, then 3 po qdinner x 2 week, then 4 po qdinner No orders of the defined types were placed in this encounter. Return in about 6 weeks (around 07/19/2021) for MED CHECK - 15 AND f/u in 3 months; Please print Arlin's AVS from her last visit.,. 5 min chart review 30 min [id number] Visit time 5 min Documentation time I spent time as above caring for this patient today; reviewing labs, writing prescriptions, documenting visit, examining the patient, arranging other specialty care, counseling in diet and/or exercise and discussion of treatment options in the care of obesity. I have reviewed the notes, assessments, and/or procedures performed by Dr. Yin, I concur with her/his documentation of Liss Itz Mosley. documented in this encounter Plan of Treatment Upcoming Encounters Date Type Department Care Team (Late st Contact Info) Description 04/13/2024 3:20 PM EST Office Visit Dermatology at [facility] [address] [place] [address] Felicitas Llanes MD [facility] DR [address] [place] [address] 04/26/2024 4:00 PM EST Office Visit Nephrology Hypertension at [facility] [place] [address] Denia Xiao APRN [facility] [place] [address] documented as of this encounter Goals Goal [...] Denia Khalil MD Note: Open your yoga soheila and see if you might be interested [...] present documented in this encounter Care Teams Steam Blocker Relationship Specialty Start Date End Date Carolyn Christianson APRN PCP - General Family Medicine 12/21/20 10/02/22 documented as of this encounter
--- OUTSIDE RECORDS SUMMARY | 2024-03-20 11:54 | XMS_ITS | Encounter Summary ---
Author Organization [facility] [place] [address] Care Team Providers Care Machine Shop Apprentice Name Role Phone Sandor Castaneda MD Primary Care Provider [phone] Reason for Visit * Reason Comments Skin Check * Consultation (Routine) - Specialty Diagnoses / Procedures Referred By Yury thornton Referred To Contact Dermatology Diagnoses Melanocytic nevi, unspecified Carolyn Christianson L, IT APPLICATIONS DEVELOPER [address] [place] [address] [facility] Dermatology [address] [place] [address] Referral ID Status Reason Start Date Expiration Date V isits Requested Visits Authorized [id number] Consult, Test & Treat PCP Updated and/or Approved 03/22/2019 09/21/2019 6 6 Encounter Details Date Type Department Care Team (Late st Contact Info) Description 04/13/2019 4:00 PM EST Office Visit Dermatology at [facility] [address] [place] [address] Tanya Lorenzana MD [facility] [address] [place] [address] SK (seborrheic keratosis); Kelly angioma; Multiple benign nevi; Dermatofibroma; Eczema, unspecified type Social History Tobacco Use Types Packs/Day Years Used Date Smoking Tobacco: Former Smokeless Tobacco: Never Comments:quit 1990 Sex and Gender Information Value Date Recorded Sex Assigned at Not on file Gender Identity Not on file Sexual Orientation Not on file documented as of this encounter Patient Instructions * Patient Instructions* Curt Quezada CCMA - 04/13/2019 4:00 PM EST ?? Vinegar baths or rinses: Use white household or apple cider vinegar. Add enough vinegar to bringpH of bath or solution down to 4.4. Purchase pH meter from [employer] ($15-$20). Or some just estimate and use 1-2 cups vinegar per bathtub and/or 2 tsp vinegar per cup of water. It should feel pleasant, not stingy. Recommend trying [employer] for hygiene maintenance documented in this encounter Progress Notes * Tanya Cyr - 04/13/2019 4:00 PM EST Images from the original note were not included. DERMATOLOGY - ESTABLISHED PATIENT FOLLOW-UP Date of service: 04/13/2019 Liss Mosley : 1965, 53 y.o. Chief Complaint: Chief Complaint Patient presents with ??? Skin Check HPI: Liss Mosley is a 53 y.o. female last seen by Dr. Barcenas on 05/12/2018. Ms. Mosley returns today for a full skin exam.She reports she has lesions that she scratches offand they don't tend to grow back. No other concerning lesions at this time. She reports intermittent eczema flares on the bilateral upper extremities and eyelids. Made worse seasonally. Has a historyof eczema in childhood. Relevant Skin History: - Okay to leave detailed message with results???Yes - Skin cancer (including type):??None ?? Family History: Melanoma:??None Father- unsure ?? 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 Medications: Current Outpatient Medications Medication Sig Dispense [...] 75MCG = 1 Tablet(s), PO, Once daily ??? hydroxychloroquine (PLAQUENIL) 200 mg Tablet Take 1 tablet by mouth 2 times daily. (Patient nottaking: Reported on 04/13/2019) 60 tablet 3 No current facility-administered medications for this visit. Allergies: Allergies Allergen Reactions ??? Adhesive Tape CIS - Localized Reaction ??? Mold Rash Review of Systems: - General: Feels well. - Skin: No other skin concerns. Examination: - Constitutional: Patient was alert, well-appearing and in no noticeable distress. - Skin: Skin examination of the scalp, face, ears, neck, back, chest, abdomen, right and left upperextremities, right and left lower extremities, hands, feet, and buttocks was normal with the exception of the findings listed below. Genitalia not examined. - SARAH Tapia was present and on standby during my examination. Diagnosis/Skin findings/Assessment/Plan: 1. Seborrheic Keratosis: Scattered brown and flesh colored waxy nummular stuck on plaques located on trunk and extremities. - Reassured of benign nature, return to clinic if these lesions become inflamed or irritating 2. Kelly Angiomas- Multiple 0.2-0.4cm bright red, well-demarcated papules on the abdomen and back. - Reassured of benign nature 3. Benign Appearing Nevi: On the trunk and extremities multiple, 0.3-0.5cm, medium-brown, evenly-pigmented macules and papules. - Reassurance, discussed importance of ABCDE's and monthly self exams 4. Dermatofibroma - firm pink papule with peripheral pigmentation on the right back - Reviewed benign nature of these skin lesions. No treatment necessary. If they become irritated, punch removal is an option but would be trading the papule for a scar. - Patient opted for no treatment at this time. 5. Eczema- erythematous scaly patch on the right antecubital fossa and erythema to the bilateral euelids Rx: Triamcinolone 0.1% cream Rx: Protopic 0.1% ointment Discussed side effects and risks with chronic use: glaucoma and cataracts with facial use and atrophy and ulceration on other chanelle of the body - Recommend Cerave SA moisturizer - Recommend Sebamed products to see if eczema flares - Recommend Vinegar baths or rinses: Use white household or apple cider vinegar. Add enough vinegarto bring pH of bath or solution down to 4.4. Purchase pH meter from [employer] ($15-$20). Or some just estimate and use 1-2 cups vinegar per bathtub and/or 2 tsp vinegar per cup of water. RTC: In one year for routine skin exam Note initiated by SARAH Tapia. I, SARAH Tapia, have performed the documentation for this encounter in the presence of and acting as a scribe for Tanya Cyr MD. I performed the services which were documented by the scribe, and I agree with the accuracy of the documentation in this encounter. Tanya Cyr MD Reviewed and signed by: Tanya Cyr MD Resident in Dermatology [facility] Patient seen and evaluated with staff livestock speculator: Anette Stokes MD Section of Dermatology [facility] * Anette Stokes MD - 04/13/2019 4:00 PM EST I directly supervised Dr. Cyr during this office visit. Dr. Cyr presented the history andphysical exam to me. I then saw and examined this patient with Dr. Cyr . We reviewed the history and pertinent details and I confirmed the physical findings. I agree with the details of the history and physical exam as documented in Dr. Cyr's note. Anette Stokes MD Staff Physician documented in this encounter Plan of Treatment Upcoming Encounters Date Type Department Care Team (Late st Contact Info) Description 04/13/2024 3:20 PM EST Office Visit Dermatology at [facility] [address] [place] [id number] Felicitas Llanes MD [facility] [address] [place] [address] 04/26/2024 4:00 PM EST Office Visit [place] [address] Denia Xiao APRN [facility] [place] [address] documented as of this encounter Visit Diagnoses Diagnosis SK (seborrheic keratosis) Other seborrheic keratosis Kelly angioma Nevus, non-neoplastic Multiple benign nevi Benign neoplasm of skin, site unspecified Dermatofibroma Benign neoplasm of skin, site unspecified Eczema, unspecified type documented in this encounter Care Teams Machine Shop Apprentice Relationship Specialty Start Date End Date Sandor Castaneda MD [address] [place] [address] PCP - General Family Medicine 06/02/17 12/20/20 documented as of this encounter
--- NOTE | 2024-03-20 12:40 | DI.VRAD_ITS ---
PROCEDURE INFORMATION: Exam: XR Lumbosacral Spine Exam date and time: 03/20/2024 12:03 PM Age: 58 years old Clinical indication: Low back pain TECHNIQUE: Imaging protocol: Radiologic exam of the lumbosacral spine. Views: 4 or 5 views. COMPARISON: CR XR LUMBAR SPINE COMPLETE 01/23/2022 11:49 AM FINDINGS: Bones/joints: Mild compression of the superior endplate of L1 and L2 of unknown age. Intervertebral disc spaces are narrowed L5/S1 consistent with degenerative disc disease. Soft tissues: Unremarkable. Intraperitoneal space: Surgical clips in the left upper quadrant of the abdomen IMPRESSION: 1. Mild compression of the superior endplate of L1 and L2 of unknown age. 2. Intervertebral disc spaces are narrowed L5/S1 consistent with degenerative disc disease. Dictated and Authenticated by: Diego Fuller MD. Ordering:DONY Morton MD
== END 2024-03-20 12:03 ==
PROVIDERS: PCP Nurse Practitioner Family; Visit Provider Nurse Practitioner Family
DX: M51.360 Other intervertebral disc degeneration, lumbar region with discogenic back pain only (principal)
CPT/HCPCS: 72110

== ENCOUNTER 2024-05-28 00:49 | Outpatient (CLI) | payer BC, SELFPAY ==
[2024-05-28 08:47] LABS: Abs Immature Grans 0.01 10^3/uL (0.0-0.06); Absolute Basophil Count 0.03 10^3/uL (0.0-0.2); Absolute Eosinophil Count 0.17 10^3/uL (0.0-0.7); Absolute Lymphocyte Count 1.98 10^3/uL (1.2-3.4); Absolute Monocyte Count 0.38 10^3/uL (0.1-0.8); Absolute Neutrophil Count 4.64 10^3/uL (1.2-6.7); Basophils % 0.4 %; Eosinophils % 2.4 %; HCT 38.3 % (36.0-46.0); HGB 12.5 g/dL (11.2-15.7); Immature Grans % 0.1 %; Lymphocytes % 27.5 %; MCH 31.4 pg (27.0-33.0); MCHC 32.6 % (32.0-36.0); MCV 96 fL (80-95); MPV 8.8 fL (8.0-11.0); Monocytes % 5.3 %; Neutrophils % 64.3 %; Platelet Count 224 10^3/uL (130-400); RBC 3.98 10^6/uL (3.93-5.22); RDW 13.4 % (11.7-14.6); RDW-SD 47.9 fL; WBC 7.21 10^3/uL (4.4-10.8)
[2024-05-28 09:14] LABS: Bilirubin Negative (Negative); Blood Negative (Negative); Clarity Clear (Clear); Glucose Negative (Negative); Ketones Negative (Negative); Leukocyte Esterase Negative (Negative); Nitrite Negative (Negative); Specific Gravity 1.015 (1.005-1.025); Urobilinogen 0.2 mg/dL (Up to 0.2)
[2024-05-28 09:31] LABS: ALT 29 U/L (14-59); AST 23 U/L (15-37); Albumin 3.7 g/dL (3.4-5.0); Alkaline Phosphatase 59 U/L (46-116); Anion Gap 4.8 mmol/L (3-11); BUN 56 mg/dL (7-18); CO2 29.2 mmol/L (21.0-32.0); CREATININE 1.6 mg/dL (0.55-1.02); Calcium 9.2 mg/dL (8.5-10.1); Chloride 102 mmol/L (98-107); Estimated GFR 36.69 (mL/min/1.73m2); Glucose 82 mg/dL (74-106); Potassium 4.7 mmol/L (3.5-5.1); Sodium 136 mmol/L (136-145); Total Protein 7.5 g/dL (6.4-8.2)
== END 2024-05-28 00:50 | disposition home or self-care (01) ==
PROVIDERS: PCP Nurse Practitioner Family; Visit Provider Surgery
DX: N18.2 Chronic kidney disease, stage 2 (mild) (principal); Z90.5 Acquired absence of kidney; N28.89 Other specified disorders of kidney and ureter
CPT/HCPCS: 36415; 80053; 81003; 85025

== ENCOUNTER 2024-08-13 02:00 | Outpatient (CLI) | payer BC, SELFPAY ==
[2024-08-13 08:17] LABS: Hemoglobin A1C 4.9 % (<5.7)
[2024-08-13 08:33] LABS: Iron 45 ug/dL (50-170)
[2024-08-13 09:10] LABS: Vitamin D 25 Total 54 ng/mL (30-100)
[2024-08-13 09:12] LABS: ALT 23 U/L (14-59); AST 17 U/L (15-37); Albumin 3.8 g/dL (3.4-5.0); Alkaline Phosphatase 57 U/L (46-116); Anion Gap 4.8 mmol/L (3-11); BUN 59 mg/dL (7-18); Bilirubin, Total 0.3 mg/dL (0.2-1.0); CO2 27.2 mmol/L (21.0-32.0); CREATININE 1.5 mg/dL (0.55-1.02); Calcium 8.7 mg/dL (8.5-10.1); Calculated LDL 162 mg/dL (<100); Chloride 109 mmol/L (98-107); Cholesterol 249 mg/dL (<200); Glucose 101 mg/dL (74-106); HDL Cholesterol 77 mg/dL (>or=50); Magnesium 2.7 mg/dL (1.8-2.4); Potassium 4.5 mmol/L (3.5-5.1); Sodium 141 mmol/L (136-145); TSH (W/Ref FT4) 4.65 uIU/mL (0.36-3.74); Total Protein 7.5 g/dL (6.4-8.2); Triglyceride 53 mg/dL (<150); Vitamin B12 1304 pg/mL (193-986)
[2024-08-13 09:13] LABS: Folate > 20.0 ng/mL (8.6-20.0)
[2024-08-13 09:34] LABS: FREE T4 0.68 ng/dL (0.76-1.46)
[2024-08-13 18:56] LABS: Parathyroid Hormone,Intact 73 pg/mL (19-88)
[2024-08-18 10:06] LABS: Thiamine (Vitamin B1), WB 159 nmol/L (70-180)
== END 2024-08-13 02:01 | disposition home or self-care (01) ==
PROVIDERS: PCP Nurse Practitioner Family; Visit Provider Nurse Practitioner Family
DX: Z98.84 Bariatric surgery status (principal); Z00.00 Encounter for general adult medical examination without abnormal findings; I10 Essential (primary) hypertension; E03.9 Hypothyroidism, unspecified; F32.4 Major depressive disorder, single episode, in partial remission; R79.9 Abnormal finding of blood chemistry, unspecified
CPT/HCPCS: 36415; 80053; 80061; 82306; 82607; 82746; 83036; 83540; 83735; 83970; 84425; 84439; 84443

== ENCOUNTER 2024-09-14 17:33 | Outpatient (REF) | payer BC, SELFPAY | END 2024-09-14 17:34 | disposition home or self-care (01) | LOC: LBN 17:33 | PROVIDERS: PCP Nurse Practitioner Family; Visit Provider Nurse Practitioner Family | DX: N89.8 Other specified noninflammatory disorders of vagina (principal) | CPT/HCPCS: 87480; 87510; 87660 ==

== ENCOUNTER 2024-11-24 02:23 | Outpatient (CLI) | payer BC, SELFPAY ==
[2024-11-24 17:26] LABS: TSH (W/Ref FT4) 2.85 uIU/mL (0.36-3.74)
== END 2024-11-24 02:24 | disposition home or self-care (01) ==
PROVIDERS: PCP Nurse Practitioner Family; Visit Provider Nurse Practitioner Family
DX: E03.9 Hypothyroidism, unspecified (principal)
CPT/HCPCS: 36415; 84443